=== PATIENT | male | born 1945 | race Hispanic/Latino ===

== ENCOUNTER 2018-10-31 06:52 | Inpatient (IN) | payer OTHER ==
[2018-10-31 07:51] LABS: Absolute Lymphocytes (CBC) 0.8 K/uL (0.7-4.9); Basophils % 0.4 % (0-1.3); Hematocrit 28.7 % (39.6-49.0); Lymphocytes % 14.7 % (15.3-44.8); MPV 10.3 fL (7.6-11.3); RBC Red Blood Cell Count 3.17 M/uL (4.33-5.43)
[2018-10-31 08:27] LABS: ALT/SGPT 16 U/L (12-78); AST/SGOT 8 U/L (15-37); Alkaline Phosphatase 81 U/L (45-117); BUN Blood Urea Nitrogen 57 mg/dL (7-18); Bicarbonate 18 mmol/L (21-32); Bilirubin Direct < 0.1 mg/dL (0-0.2); Bilirubin Total 0.4 mg/dL (0.2-1.0); Glucose Level 100 mg/dL (74-106); Lipase 123 U/L (73-393); Potassium 5.4 mmol/L (3.5-5.1); Protein, Total 6.9 g/dL (6.4-8.2); Sodium Level 142 mmol/L (136-145); Troponin (Emerg Dept Use Only) 0.03 ng/mL (0.0-0.045)
[2018-10-31] MEDS ORDERED: FUROSEMIDE 100 MG/10 ML VIAL IV ONE (08:45)
--- NOTE | 2018-10-31 08:58 | EDPHYS ---
Physician Documentation [facility] Name: Jodi Steve Age: 73 yrs Sex: Male : 1945 Arrival Date: 10/31/2018 Time: 07:00 Bed 20 Private MD: Dominic Adler H ED Physician Mane Canales HPI: 10/31 09:12 This 73 yrs old Male presents to ER via Ambulatory with complaints of gs Nausea/Vomiting cough. 09:12 The patient or guardian reports cough, difficulty breathing. Onset: The gs symptoms/episode began/occurred 3 week(s) ago. Severity of symptoms: At their worst the symptoms were severe, in the emergency department the symptoms have improved, moderately. Modifying factors: the symptoms are aggravated by exertion. Associated signs and symptoms: Pertinent positives: chest pain, vomiting, Pertinent negatives: fever, rhinorrhea. The patient has experienced similar episodes in the past, a few times. The patient has been recently seen by a physician: the patient's primary care provider, with similar presenting complaints. Historical: - Allergies: 07:11 No Known Allergies; em - Home Meds: 09:47 carvedilol 25 mg oral tab 1 tab every 12 hours [Active]; albuterol sulfate 90 em mcg/actuation Inhl HFAA 1 puff every 4-6 hours [Active]; guaifenesin-codeine syrup 5 ml every 6 hours PRN for cough [Active]; montelukast oral oral [Active]; - PMHx: 07:11 Diabetes - NIDDM; em 07:31 Hypertension; em 09:13 Renal Disease; gs - PSHx: 07:11 CABG; em - Immunization history:: Adult Immunizations up to date. - Social history:: Smoking status: Patient/guardian denies using tobacco. - Ebola Screening: : Patient negative for fever greater than or equal to 101.5 degrees Fahrenheit, and additional compatible Ebola Virus Disease symptoms Patient denies exposure to infectious person Patient denies travel to an Ebola-affected area in the 21 days before illness onset No symptoms or risks identified at this time. ROS: 09:13 All other systems are negative. gs Exam: 09:13 Head/Face: Normocephalic, atraumatic. Eyes: Pupils equal round and reactive to light, gs extra-ocular motions intact. Lids and lashes normal. Conjunctiva and sclera are non-icteric and not injected. Cornea within normal limits. Periorbital areas with no swelling, redness, or edema. ENT: Nares patent. No nasal discharge, no septal abnormalities noted. Tympanic membranes are normal and external auditory canals are clear. Oropharynx with no redness, swelling, or masses, exudates, or evidence of obstruction, uvula midline. Mucous membranes moist. Neck: Trachea midline, no thyromegaly or masses palpated, and no cervical lymphadenopathy. Supple, full range of motion without nuchal rigidity, or vertebral point tenderness. No Meningismus. Chest/axilla: Normal chest wall appearance and motion. Nontender with no deformity. No lesions are appreciated. Cardiovascular: Regular rate and rhythm with a normal S1 and S2. No gallops, murmurs, or rubs. Normal PMI, no JVD. No pulse deficits. 09:13 Abdomen/GI: Soft, non-tender, with normal bowel sounds. No distension or tympany. No guarding or rebound. No evidence of tenderness throughout. Back: No spinal tenderness. No costovertebral tenderness. Full range of motion. Skin: Warm, dry with normal turgor. Normal color with no rashes, no lesions, and no evidence of cellulitis. MS/ Extremity: Pulses equal, no cyanosis. Neurovascular intact. Full, normal range of motion. Neuro: Awake and alert, GCS 15, oriented to person, place, time, and situation. Cranial nerves II-XII grossly intact. Motor strength 5/5 in all extremities. Sensory grossly intact. Cerebellar exam normal. Normal gait. 09:13 Constitutional: The patient appears alert, awake. 09:13 Respiratory: the patient does not display signs of respiratory distress, Respirations: normal, Breath sounds: decreased breath sounds, are located in both bases. 09:13 Musculoskeletal/extremity: Perfusion: the patient is normally perfused throughout, Edema, 1+ to the left ankle and right ankle is noted. Vital Signs: 07:11 BP 174 / 87; Pulse 79; Resp 22; Temp 98.3(O); Pulse Ox 99% on R/A; Weight 76.66 kg; em Height 5 ft. 5 in. (165.10 cm); Pain 0/10; 07:52 BP 140 / 78; Pulse 88; Resp 22; Pulse Ox 98% on R/A; Pain 0/10; em 08:42 BP 166 / 82; Pulse 69; Resp 20; Pulse Ox 100% on R/A; Pain 0/10; em 09:52 BP 173 / 85; Pulse 74; Resp 20; Pulse Ox 97% on R/A; em 10:45 BP 139 / 58; Pulse 76; Resp 18; Temp 98.1(O); Pulse Ox 97% on R/A; Pain 0/10; em 07:11 Body Mass Index 28.12 (76.66 kg, 165.10 cm) em MDM: 07:12 Patient medically screened. 09:13 Differential Diagnosis: Upper Respiratory Infection Viral Syndrome Pneumonia Other chf. Data reviewed: vital signs, nurses notes. Counseling: I had a detailed discussion with the patient and/or guardian regarding: the historical points, exam findings, and any diagnostic results supporting the discharge/admit diagnosis, the need for further work-up and treatment in the hospital. Response to treatment: the patient's symptoms have mildly improved after treatment. 10/31 07:20 Order name: Basic Metabolic Panel; Complete Time: 08:42 10/31 07:20 Order name: CBC with Diff; Complete Time: 08:30 10/31 07:20 Order name: Hepatic Function; Complete Time: 08:42 10/31 07:20 Order name: Lipase; Complete Time: 08:42 10/31 07:35 Order name: Troponin (emerg Dept Use Only); Complete Time: 08:30 10/31 07:35 Order name: PROBNP; Complete Time: 08:30 10/31 07:20 Order name: XRAY Chest Pa And Lat (2 Views) 10/31 08:59 Order name: Echo w/ Doppler 10/31 08:59 Order name: US Rp Exam Complete 10/31 09:50 Order name: Urinalysis EDNM 10/31 09:50 Order name: CBC with Automated Diff EDNM 10/31 09:50 Order name: CBC with Automated Diff EDNM 10/31 09:50 Order name: Comprehensive Metabolic Panel EDNM 10/31 09:50 Order name: Comprehensive Metabolic Panel EDNM 10/31 07:20 Order name: IV Saline Lock; Complete Time: 07:33 10/31 07:20 Order name: Labs collected and sent; Complete Time: 07:33 10/31 07:20 Order name: EKG - Nurse/Tech; Complete Time: 07:33 10/31 09:50 Order name: CONS Pharmacy Consult [facility] 10/31 09:50 Order name: CONS Physician Consult [facility] 10/31 09:50 Order name: Heart Healthy EDNM Administered Medications: 08:52 Drug: Lasix 80 mg Route: IVP; Site: right antecubital; 09:52 Follow up: Response: No adverse reaction em Disposition: 10/31/18 08:57 Hospitalization ordered by Jose Antonio Renee for Inpatient Admission. Preliminary diagnosis are Acute systolic (congestive) heart failure, Unspecified kidney failure. - Bed requested for Telemetry/MedSurg (Inpatient). - Status is Inpatient Admission. em - Condition is Stable. - Problem is new. - Symptoms have improved. UTI on Admission? No Signatures: Dispatcher [employer] [facility] Allison José RN RN dw Munoz, Edgar, LVN ELECTRONICS SPECIALIST Shelbi Hanson RN RN ss Starr, Gregory, MD MD Corrections: (The following items were deleted from the chart) 07:31 07:11 Ebola Screening: Patient negative for fever greater than or equal to 101.5 em degrees Fahrenheit, and additional compatible Ebola Virus Disease symptoms Patient denies exposure to infectious person Patient denies travel to an Ebola-affected area in the 21 days before illness onset No symptoms or risks identified at this time em 09:47 07:31 Home Meds: carvedilol 6.25 mg oral tab; em em 10:34 08:57 Hospitalization Ordered by Jose Antonio Renee MD for Inpatient Admission. Preliminary diagnosis is Acute systolic (congestive) heart failure; Unspecified kidney failure. Bed requested for Telemetry/MedSurg (Inpatient). Status is Inpatient Admission. Condition is Stable. Problem is new. Symptoms have improved. UTI on Admission? No. gs 11:09 10:34 10/31/2018 08:57 Hospitalization Ordered by Jose Antonio Renee MD for Inpatient em Admission. Preliminary diagnosis is Acute systolic (congestive) heart failure; Unspecified kidney failure. Bed requested for Telemetry/MedSurg (Inpatient). Status is Inpatient Admission. Condition is Stable. Problem is new. Symptoms have improved. UTI on Admission? No. dw
--- NOTE | 2018-10-31 08:58 | ER ---
Nurse's Notes [facility] Name: Jodi Steve Age: 73 yrs Sex: Male : 1945 Arrival Date: 10/31/2018 Time: 07:00 Bed 20 Private MD: Dominic Adler H Diagnosis: Acute systolic (congestive) heart failure;Unspecified kidney failure Presentation: 10/31 07:07 Acuity: ELYSE 3 ss 07:08 Presenting complaint: Patient states: cough for 3 weeks that is productive and coughing em up white spit, also reports N/V for several weeks, vomited 4 times this morning, denies chest pain, abd pain, or fever. Transition of care: patient was not received from another setting of care. Onset of symptoms was October 07, 2018. Risk Assessment: Do you want to hurt yourself or someone else? Patient reports no desire to harm self or others. Initial Sepsis Screen: Does the patient meet any 2 criteria? RR > 20 per min. No. Patient's initial sepsis screen is negative. Does the patient have a suspected source of infection? No. Patient's initial sepsis screen is negative. Care prior to arrival: None. 07:08 Method Of Arrival: Ambulatory em Historical: - Allergies: 07:11 No Known Allergies; em - Home Meds: 09:47 carvedilol 25 mg oral tab 1 tab every 12 hours [Active]; albuterol sulfate 90 em mcg/actuation Inhl HFAA 1 puff every 4-6 hours [Active]; guaifenesin-codeine syrup 5 ml every 6 hours PRN for cough [Active]; montelukast oral oral [Active]; - PMHx: 07:11 Diabetes - NIDDM; em 07:31 Hypertension; em 09:13 Renal Disease; gs - PSHx: 07:11 CABG; em - Immunization history:: Adult Immunizations up to date. - Social history:: Smoking status: Patient/guardian denies using tobacco. - Ebola Screening: : Patient negative for fever greater than or equal to 101.5 degrees Fahrenheit, and additional compatible Ebola Virus Disease symptoms Patient denies exposure to infectious person Patient denies travel to an Ebola-affected area in the 21 days before illness onset No symptoms or risks identified at this time. Screenin:08 Abuse screen: Denies threats or abuse. Denies injuries from another. Nutritional ss screening: No deficits noted. Tuberculosis screening: Never had TB. 07:12 Fall Risk None identified. em Assessment: 07:13 General: Appears in no apparent distress. comfortable, Behavior is calm, cooperative, em Denies fever. Pain: Denies pain. Neuro: Level of Consciousness is awake, alert, obeys commands, Oriented to person, place, time, situation. Cardiovascular: Denies chest pain, Capillary refill < 3 seconds. Respiratory: Reports shortness of breath on exertion cough that is productive, Airway is patent Respiratory effort is even, unlabored, Respiratory pattern is regular, symmetrical, Breath sounds are diminished in left posterior lower lobe, right posterior middle lobe and right posterior lower lobe Onset: The symptoms/episode began/occurred 3 weeks ago. GI: Abdomen is flat, Bowel sounds present X 4 quads. Abd is soft and non tender X 4 quads. Reports nausea, vomiting, Patient currently denies diarrhea. Derm: Skin is intact, is healthy with good turgor, Skin is pink, warm \T\ dry. Musculoskeletal: Capillary refill < 3 seconds, Range of motion: intact in all extremities. 07:15 General: The previous assessment is accurate. Patient remains on monitors. VS WNL . ss 07:40 Reassessment: Patient appears in no apparent distress at this time. wheeled to CT via em wheelchair. 08:42 Reassessment: Patient appears in no apparent distress at this time. Patient and/or em family updated on plan of care and expected duration. Pain level reassessed. Patient is alert, oriented x 3, equal unlabored respirations, skin warm/dry/pink. Patient denies pain at this time. 09:22 Reassessment: Patient appears in no apparent distress at this time. Patient and/or em family updated on plan of care and expected duration. Pain level reassessed. Patient is alert, oriented x 3, equal unlabored respirations, skin warm/dry/pink. Dr. Johansen at bedside. 09:32 Reassessment: Patient appears in no apparent distress at this time. US at bedside. em 10:45 Reassessment: Patient appears in no apparent distress at this time. Patient and/or em family updated on plan of care and expected duration. Pain level reassessed. Patient is alert, oriented x 3, equal unlabored respirations, skin warm/dry/pink. Patient states feeling better. Vital Signs: 07:11 BP 174 / 87; Pulse 79; Resp 22; Temp 98.3(O); Pulse Ox 99% on R/A; Weight 76.66 kg; em Height 5 ft. 5 in. (165.10 cm); Pain 0/10; 07:52 BP 140 / 78; Pulse 88; Resp 22; Pulse Ox 98% on R/A; Pain 0/10; em 08:42 BP 166 / 82; Pulse 69; Resp 20; Pulse Ox 100% on R/A; Pain 0/10; em 09:52 BP 173 / 85; Pulse 74; Resp 20; Pulse Ox 97% on R/A; em 10:45 BP 139 / 58; Pulse 76; Resp 18; Temp 98.1(O); Pulse Ox 97% on R/A; Pain 0/10; em 07:11 Body Mass Index 28.12 (76.66 kg, 165.10 cm) em ED Course: 07:00 Patient arrived in ED. am2 07:00 Dominic Adler DO is Private Physician. am2 07:01 Elkin Gould LVN is Primary Nurse. em 07:07 Triage completed. ss 07:07 Patient has correct armband on for positive identification. Placed in gown. Bed in low ss position. Call light in reach. Side rails up X 1. awake overnight monitor on. Pulse ox on. NIBP on. 07:11 Mane Canales MD is Attending Physician. gs 07:12 Arm band placed on. em 07:27 Radiology exam delayed due to. ls3 07:48 XRAY Chest Pa And Lat (2 Views) In Process Unspecified. EDMS 08:00 Initial lab(s) drawn, by me, sent to lab. Inserted saline lock: 22 gauge in right em antecubital area, using aseptic technique. Blood collected. 08:57 Jose Antonio Renee MD is Hospitalizing Provider. gs 09:48 Ultrasound completed. Patient tolerated well. sg3 09:57 US Rp Exam Complete In Process Unspecified. EDMS 11:01 No provider procedures requiring assistance completed. Patient admitted, IV remains in em place. Administered Medications: 08:52 Drug: Lasix 80 mg Route: IVP; Site: right antecubital; ss 09:52 Follow up: Response: No adverse reaction em Output: 09:52 Urine: 320ml (Voided); Total: 320ml. em Outcome: 08:57 Decision to Hospitalize by Provider. 11:01 Admitted to Tele accompanied by tech, family with patient, via wheelchair, room 204, em with chart, Report called to JULIO West 11:01 Condition: good 11:01 Instructed on the need for admit, Demonstrated understanding of instructions. 11:09 Patient left the ED. em Signatures: Dispatcher [employer] EDMS Elkin Gould, HOTEL SERVER HOTEL SERVER em Shelbi Hanson RN RN ss Moreno, Amanda am2 Mane Canales MD MD Leatha Mi 3 Tremayne Chaney ls3 Corrections: (The following items were deleted from the chart) 07:31 07:11 Ebola Screening: Patient negative for fever greater than or equal to 101.5 em degrees Fahrenheit, and additional compatible Ebola Virus Disease symptoms Patient denies exposure to infectious person Patient denies travel to an Ebola-affected area in the 21 days before illness onset No symptoms or risks identified at this time em 09:47 07:31 Home Meds: carvedilol 6.25 mg oral tab; em em
--- NOTE | 2018-10-31 09:51 | P.HP ---
Certification for Inpatient With expected LOS: >2 Midnights Practitioner: I am a practitioner with admitting privileges, knowledge of patient current condition, hospital course, and medical plan of care. Services: Services provided to patient in accordance with Admission requirements found in Title 42 Section 412.3 of the Code of Federal Regulations Patient History Date of Service: 10/31/18 Reason for admission: Cough lower extremity edema History of Present Illness: Patient is 73 years of age with a history of renal failure admitted with a 3 week onset of a progressive cough coughing up whitish sputum also complaining of insomnia denies any chest pain. History of CABG no fever or chills denies any postnasal drainage or reflux symptoms Allergies No Known Allergies Allergy (Unverified 10/31/18 09:18) Review of Systems General: Weakness Respiratory: Cough Cardiovascular: Edema Physical Examination - Physical Exam General: Alert, Oriented x3 Neck: Supple Respiratory: Crackles/rales (Bilateral crackles) Cardiovascular: Normal S1 S2, Edema (3+ edema) Gastrointestinal: Normal bowel sounds, Soft and benign Musculoskeletal: No clubbing, No contractures Integumentary: No rashes, No breakdown, No significant lesion - Studies Laboratory Data (last 24 hrs) 10/31/18 07:25: WBC 5.7, Hgb 9.7 L, Hct 28.7 L, Plt Count 150 L 10/31/18 07:25: Sodium 142, Potassium 5.4 H, BUN 57 H, Creatinine 5.37 H*, Glucose 100, Total Bilirubin 0.4, AST 8 L, ALT 16, Alkaline Phosphatase 81, Lipase 123 Assessment and Plan - Problems (Diagnosis) (1) Renal failure Current Visit: Yes Status: Acute Plan: Patient is 73 years of age admitted with cough the burned to sleep at night possible orthopnea volume overload significant lower extremity edema elevated serum creatinine appears that he has chronic renal failure patient is anemic elevated BNP chest x-ray possible volume overload plan is [facility] far at [facility] Qualifiers: Acute renal failure type: unspecified - Advance Directives Does patient have a Living Will: No Does patient have a Durable POA for Healthcare: No
--- NOTE | 2018-10-31 12:19 | RAD REPORT ---
EXAM DESCRIPTION: RAD - Chest Pa And Lat (2 Views) - 10/31/2018 7:49 am CLINICAL HISTORY: COUGH Chest pain. COMPARISON: Abdomen Angio dated 06/11/2018No comparisons FINDINGS: Diffuse bilateral reticular lung opacities are present with small pleural effusions, suspi cious for atypical pneumonia. The heart is mildly enlarged in size with changes of a prior CABG noted .
--- NOTE | 2018-10-31 12:23 | RAD REPORT ---
EXAM DESCRIPTION: US - Renal Ultrasound-Complete - 10/31/2018 9:56 am CLINICAL HISTORY: kidney failure COMPARISON: No comparisons FINDINGS: Both kidneys are mildly echogenic. The right kidney measures 8.9 x 4.6 x 4.0 cm.. No hydronephrosis, focal mass or perinephric fluid. The left kidney measures 9.9 x 5.3 x 4.9 cm.. No hydronephrosis. 7 cm benign-appearing left renal cys t. The urinary bladder is incompletely distended without gross abnormality seen. IMPRESSION: Mildly echogenic kidneys suggests underlying medical renal disease. 7 cm left renal cyst.
[2018-10-31] MEDS: INSULIN -REGULAR HUMAN 50 UNIT/0.5 ML ML SQ SCH ×3 (12:43→20:37)
[2018-10-31 13:10] LABS: Urine Appearance CLEAR; Urine Bilirubin NEGATIVE (NEG); Urine Blood 1+ (NEG); Urine Color YELLOW; Urine Glucose TRACE (NEG); Urine Protein 3+ (NEG); Urine Urobilinogen 0.2 mg/dL (0.2-1.0)
[2018-10-31 13:32] LABS: Urine Microscopic Reflex ORDER UMIC
[2018-10-31 13:54] LABS: Urine Bacteria <20 /HPF (NONE SEEN); Urine Culture Reflex Order NOT NEEDED
[2018-10-31 16:04] LABS: Urine Protein/Creatinine Ratio 10.38 ratio (<0.15)
[2018-10-31] MEDS: FUROSEMIDE 40 MG/4 ML VIAL IV SCH (16:24)
[2018-10-31] MEDS: SODIUM BICARB 325 MG TAB PO SCH ×2 (16:25→20:37)
--- NOTE | 2018-10-31 16:47 | CON ---
Date of Consultation: 10/31/2018 Reason For Consultation: Elevated BUN and creatinine, over volume, fluid management. History Of Present Illness: This is a pleasant 73-year-old gentleman with significant past medical h istory of diabetes since 2004, complicated with neuropathy, no retinopathy, coronary artery disease, status post CABG back in 2014, hypertension, apparently the patient followup with Dr. Adler. Dr. Adler d one some labs on him a couple of months ago and found abnormal kidney function, has been referred to Dr. Dooley, but patient never made it there. Patient gradually started having shortness of breath and increased leg swelling. For that reason, he reported to the emergency room. In the emergency room, primary workup showed elevation in BUN and creatinine. For that reason, we have been consulted. Unf ortunately, in the system, we do not have any previous lab data. On this admission, his creatinine c frankie 5.3 with GFR of 10, marginal hyperkalemia, and marginal acidosis. Patient denied taking any nonsteroidal. No recent hospitalization. No IV contrast. No recent del cid e in his medication. Reviewing home medication, patient at home being Singulair and carvedilol. No other insulting medica tion. Past Medical History: 1.Chronic kidney disease, unknown stages. 2.Hypertension. 3.Coronary artery disease, complicated with congestive heart failure, status post CABG back in 2014. 4.Diabetes, complicated with neuropathy, no retinopathy. Social History: Denies smoking. Denies drinking. Family History: Positive for hypertension. Allergies: NO KNOWN DRUG ALLERGIES. Review of Systems: Head and Neck: No red eye. No ear pain. GI: No nausea. No vomiting. : No polyuria. No dysuria. Has nocturia. LOCAL INTERMODAL TRUCK DRIVER: Not applicable. Respiratory: Has shortness of breath. Cardiovascular: Has orthopnea. Has leg swelling. Endocrine: No polydipsia. Skin: No rash. Neuro: Has neuropathy. Musculoskeletal: No joint pain. Physical Examination: Vital Signs: When I saw the patient, patient lying in bed. Blood pressure 180/87, pulse of 78, afeb rile. Chest: Crackles, bilateral base. Heart: S1, S2. Systolic murmur. Abdomen: Soft, nontender. Extremities: Trace edema. Laboratory Data: WBC 5.7, H and H 9.7/28.6, platelets 150. Sodium 142, potassium 5.4, bicarb 18, ch loride 114, BUN 57, creatinine 5.3, GFR 10, calcium 8.4. BNP . Troponin negative. Urinal ysis; specific gravity of 1.010, + 3 protein. Renal ultrasound showing small kidney bilaterally, no hydronephrosis, 8.9 x 9.9. Bladder distended. Chest x-ray; cardiomegaly with congestion. Assessment And Plan: Acute kidney injury on chronic kidney disease secondary to cardiorenal. The ch ronic component mostly secondary to cardiorenal, diabetes, hypertension, small kidney, proteinuric, p ossible nephrotic. The acute component is mainly cardiorenal, over volume, mild acidosis, and margin al hyperkalemia. 1.I am going to start the patient on Lasix. 2.We are going to do a bladder scan post voiding to evaluate the patient if there is any component o f obstruction. If postvoiding still elevated, we are going to go ahead and place a Hopper. 3.Given the anemia, I am going to go ahead and send for full workup. 4.I am going to send for TSH. 5.I am going to send for PTH to evaluate the chronicity of the disease. 6.Hypertension. We will utilize for more diuresis. 7.Over volume secondary to congestive heart failure, cardiorenal. As above, we will diurese. 8.Hyperkalemia secondary to renal failure, marginal. We will start the patient on diuresis. 9.Acidosis. We will start the patient on oral sodium bicarb. 10.Diabetes as by primary. 11.Congestive heart failure. We will follow up with Cardiology. Thank you Dr. Renee for allowing us to participate in the care of your patient. I discussed with the patient at length that if kidney function did not improve, patient may need renal replacement the rapy. Patient likes to watch in the 24 hours, which is agreed. Patient also directed to bring the l ab that has done with Dr. Adler and we will follow up. YVONNE/IMER Voice ID: [id number] Report ID: [id number]
[2018-10-31] MEDS: CARVEDILOL 6.25 MG TAB PO SCH (20:37)
[2018-10-31] MEDS ORDERED: TEMAZEPAM 15 MG CAP PO ONE (21:00)
[2018-11-01 05:59] VITALS: BMI 26.9
[2018-11-01 06:33] LABS: Absolute Lymphocytes (CBC) 0.7 K/uL (0.7-4.9); Basophils % 0.5 % (0-1.3); Hematocrit 27.1 % (39.6-49.0); Lymphocytes % 15.1 % (15.3-44.8); MPV 10.1 fL (7.6-11.3); RBC Red Blood Cell Count 3.01 M/uL (4.33-5.43)
[2018-11-01 07:03] LABS: Albumin 2.7 g/dL (3.4-5.0); Bilirubin Total 0.3 mg/dL (0.2-1.0); Ferritin 36.7 ng/mL (26-388); Folic Acid, (Folate) 11.3 ng/mL (3.1-17.5); Phosphorus 5.3 mg/dL (2.5-4.9); Potassium 4.8 mmol/L (3.5-5.1); Protein, Total 6.4 g/dL (6.4-8.2)
[2018-11-01 07:10] LABS: Thyroid Stimulating Hormone 11.7 uIU/mL (0.360-3.740)
[2018-11-01] MEDS: INSULIN -REGULAR HUMAN 50 UNIT/0.5 ML ML SQ SCH ×2 (07:30→11:30)
[2018-11-01] MEDS: FUROSEMIDE 40 MG/4 ML VIAL IV SCH (08:10)
[2018-11-01] MEDS: CARVEDILOL 6.25 MG TAB PO SCH (08:11)
[2018-11-01] MEDS: SODIUM BICARB 325 MG TAB PO SCH (08:11)
[2018-11-01 09:14] VITALS: O2SAT 100
--- NOTE | 2018-11-01 10:34 | P.PN ---
Subjective Date of Service: 11/01/18 (Hospitalist) Chief Complaint: Chronic renal failure Subjective: Improving (Patient is improving doing better still complaining of cough and insomnia requesting sleeping pill) Review of Systems 10-point ROS is otherwise unremarkable Physical Examination - Vital Signs Temperature: 97.1 F Blood Pressure: 170/80 Pulse: 71 Respirations: 16 Pulse Ox (%): 100 - Physical Exam General: Alert, Oriented x3 HEENT: Atraumatic Neck: Supple Respiratory: Clear to auscultation bilaterally Cardiovascular: Regular rate/rhythm, Edema Assessment & Plan - Problems (Diagnosis) (1) Renal failure Current Visit: Yes Status: Acute Plan: Patient admitted with renal failure presumed chronic seen by Nephrology he is feeling better still complaining of cough oxygenation satisfactory blood pressure await Nephrology recommendations regarding discharge I have added Sneha still has a slight cough echocardiogram pending no Latty added due to hypertension Qualifiers: Acute renal failure type: unspecified (2) Hypothyroid Current Visit: Yes Status: Acute Plan: Possible his tsh is very elevated free T3 ordered I have added small dose of Synthroid for now Qualifiers: Hypothyroidism type: unspecified Qualified Code(s): E03.9 - Hypothyroidism , unspecified
[2018-11-01] MEDS ORDERED: AMLODIPINE 5 MG TAB PO SCH (10:46)
[2018-11-01] MEDS ORDERED: ESZOPICLONE 1 MG TAB PO PRN (10:49)
[2018-11-01 11:37] VITALS: BP 172/80
[2018-11-01 12:14] VITALS: TEMP 96.9
[2018-11-01] MEDS ORDERED: CALCITROL 0.25 MCG CAP PO SCH (13:00)
[2018-11-01] MEDS ORDERED: AMLODIPINE 10 MG TAB PO SCH (13:00)
[2018-11-01] MEDS ORDERED: CARVEDILOL 12.5 MG TAB PO SCH (13:00)
[2018-11-01] MEDS ORDERED: FERROUS SULFATE 325 MG TAB PO SCH (14:00)
--- NOTE | 2018-11-01 14:47 | PN ---
Date of Progress Note: 11/01/2018 Subjective: Patient was admitted with over volume. Patient being on diuresis, responding very well. Patient had good urine output of 1900. Patient still have leg swelling, but his shortness of breat h has been improved significantly. Physical Examination: Vital Signs: When I saw the patient, blood pressure of 170/80 and pulse of 66. Afebrile. Chest: Clear to auscultation. Heart: S1, S2. Systolic murmur. Abdomen: Soft, nontender. Extremities: +2 edema. Laboratory Data: WBC 4.4, H and H 9/27.1, platelets 146. Sodium 141, potassium 4.8, bicarb 21, BUN 62, creatinine 5.4. GFR of 10. Calcium 8.2, phosphorus 5.3. TSAT of 14. TSH 11.7, PTH 806. P-C r atio of 10. Serology still pending. Assessment And Plan: 1.Chronic kidney disease stage 5, mostly secondary to cardiorenal and hypertensive nephrosclerosis s mall kidney nephrotic range proteinuria over volume, better respiratory status currently. Again, I a m going to go ahead and increase his Lasix to 80 mg in the morning, 40 mg at night. I had long discu ssion with the patient in the presence of the son, regarding the need to initiate renal replacement t herapy. Patient in favor of initiating that as outpatient as the patient may be interested on perito maynor dialysis. I had explained to the patient risks, benefits, alternatives, and the need for earlie r start. Patient verbalized understanding. I am going to go ahead and increase Lasix, increase Core g and amlodipine for better blood pressure control and we will monitor. 2.Hypertension, not controlled. We will utilize blood pressure for more diuresis. I am going to gi ve him Lasix 80 currently. Patient is going to be discharged on 80 in the morning, 40 at night and w e will monitor the patient. 3.Edema secondary to cardiorenal/proteinuria/hypothyroidism. I agree with levothyroxine. Increase Lasix and we will monitor. 4.Acidosis secondary to renal failure, responds very well to current bicarb dose. 5.Secondary hyperparathyroidism. I am going to start the patient on calcitriol 0.5 every other day. 6.Iron deficiency anemia. We will start the patient on iron supplement. 7.Diabetes as by primary. 8.Patient okay for discharge from the Renal standpoint to follow up in the office in 2 weeks with alexi. BERNABE Voice ID: [id number] Report ID: [id number]
--- NOTE | 2018-11-01 16:59 | EKG ---
Test Date: 2018-10-31 Test Time: 07:27:53 [employer]: MEASUREMENT RESULTS: Intervals: Rate: 80 [place]: 166 QRSD: 110 QT: 408 QTc: 470 [place]: P: 35 [place]: 166 QRS: 33 T: 135 INTERPRETIVE STATEMENTS: Normal sinus rhythm Minimal voltage criteria for LVH, may be normal variant ST & T wave abnormality, consider lateral ischemia Prolonged QT Abnormal ECG No previous ECG available for comparison Electronically Signed On 11-01-18 16:56:26 CDT by Barry Mccann
[2018-11-01] MEDS ORDERED: FUROSEMIDE 40 MG/4 ML VIAL IV SCH (17:00)
[2018-11-01 22:16] LABS: Rheumatoid Factor NEG (NEG)
[2018-11-02] MEDS ORDERED: LEVOTHYROXINE SOD 0.025 MG TAB PO SCH (06:30)
[2018-11-04 15:26] LABS: HIV AG/AB 4TH GEN Non-reactive (Non-reactive); Hepatitis C Virus RNA (PCR)log <1.18 log IU/mL
[2018-11-04 19:42] LABS: HBsAG Nonreactive (Nonreactive)
== END 2018-11-01 14:17 | disposition home or self-care (01) | DRG 292 ==
LOC: ER 06:52 → SUPCPDRO 06:52 → ERHOLD 10:05 → 2ND 10:53
PROVIDERS: ADMIT Internal Medicine Sleep Medicine; ATTEND Internal Medicine Sleep Medicine
DX: I13.2 Hypertensive heart and chronic kidney disease with heart failure and with stage 5 chronic kidney disease, or end stage renal disease (principal); N18.5 Chronic kidney disease, stage 5; N17.9 Acute kidney failure, unspecified; E87.2 Acidosis; N25.81 Secondary hyperparathyroidism of renal origin; E11.22 Type 2 diabetes mellitus with diabetic chronic kidney disease; I50.9 Heart failure, unspecified; E03.9 Hypothyroidism, unspecified; R80.9 Proteinuria, unspecified; D50.9 Iron deficiency anemia, unspecified; I25.10 Atherosclerotic heart disease of native coronary artery without angina pectoris; E87.5 Hyperkalemia; Z95.1 Presence of aortocoronary bypass graft
CPT/HCPCS: 36415; 71046; 76770; 80048; 80053; 80069; 80076; 81003; 81015; 82570; 82607; 82652; 82728; 82746; 82962; 83520; 83540; 83690; 83880; 83970; 84156; 84165; 84439; 84443; 84466; 84481; 84484; 85025; 85044; 86021; 86038; 86160; 86225; 86317; 86430; 86704; 86706; 87340; 87389; 87522; 93005; 96374; 99285; J1940

== ENCOUNTER 2018-11-09 08:09 | Day surgery (SDC) | payer OTHER ==
[2018-11-06 10:39] LABS: Potassium 5.7 mmol/L (3.5-5.1)
[2018-11-09 08:54] LABS: Potassium 5.3 mmol/L (3.5-5.1)
[2018-11-09] MEDS ORDERED: CEFAZOLIN/SWI 1gm 1 GM/10 ML SYR ONE (09:01)
[2018-11-09] MEDS ORDERED: NA CHLORIDE 0.9% 500 ML ONE (09:01)
[2018-11-09] MEDS ORDERED: HEPARIN 5000 UNIT/ML 1 ML VIAL ONE (09:26)
[2018-11-09] MEDS ORDERED: NA CHLORIDE 0.9% 100 ML IV ONE (09:26)
[2018-11-09] MEDS ORDERED: NS 0.9% VIAL 10 ML ONE (09:46)
[2018-11-09] MEDS ORDERED: FENTANYL CITR 100 MCG/2 ML ONE (09:47)
[2018-11-09] MEDS ORDERED: PROPOFOL 200 MG/20 ML VIAL IV ONE (09:47)
[2018-11-09] MEDS ORDERED: MIDAZOLAM HCL 2 MG/2 ML INJ ONE ×2 (09:47→10:23)
[2018-11-09] MEDS ORDERED: LIDOCAINE 2% MPF 5 ML VIAL ONE (09:47)
[2018-11-09] MEDS ORDERED: ONDANSETRON 4 MG/2 ML VIAL ONE (09:48)
[2018-11-09] MEDS ORDERED: LIDOCAINE 1% MPF 30 ML VIAL ONE (09:56)
[2018-11-09] MEDS: HEPARIN 5000 UNIT/ML 1 ML VIAL ONE ×3 (10:20→10:27)
--- NOTE | 2018-11-09 10:48 | RAD REPORT ---
EXAM DESCRIPTION: RAD - Fluoroscopy <1 Hour - 11/09/2018 10:38 am CLINICAL HISTORY: Venous catheter insertion. TESSIO PLACEMENT COMPARISON: No comparisons FINDINGS: Fluoroscopic imaging is submitted from placement of a venous catheter. Details of the pro cedure not available. Fluoroscopy time: 0.1 minutes
--- NOTE | 2018-11-09 11:13 | RAD REPORT ---
EXAM DESCRIPTION: RAD - Chest Single View - 11/09/2018 11:03 am CLINICAL HISTORY: S P HEMO CATH PLACEMENT Chest pain. COMPARISON: Chest Pa And Lat (2 Views) dated 10/31/2018 FINDINGS: Portable technique limits examination quality. Right-sided venous catheter its tip in the SVC. No postprocedure pneumothorax.
--- NOTE | 2018-11-09 11:38 | OP ---
Date of Procedure: 11/09/2018 Surgeon: Trey Enrique MD Preoperative Diagnosis: Renal failure. Postoperative Diagnosis: Renal failure. Procedure: Placement of right IJ Tesio catheter. Interpretation of intraoperative fluoroscopy. Estimated Blood Loss: Minimal. Specimen: None. Findings: Normal anatomy. Anesthesia: MAC. Complications: None. Disposition: Patient tolerated the procedure, in stable condition, and taken to recovery in good gen eral condition. Description Of Procedure: Patient was brought to the OR and placed in supine position. General anes thesia was begun. Patient was prepped and draped in usual sterile fashion. Lidocaine 1% was infiltr ated locally. An 18-gauge needle was used to access the right IJ vein. Guidewire was passed. Posit ion was confirmed with fluoroscopy. Counterincision was made in the right anterior chest. Tunneling device was used to tunnel the catheter between the 2 wounds and Seldinger technique was used. Vein dilated and tip of the catheter was placed under fluoroscopy at the SVC and then catheter flushed wit h heparin and packed with heparin with good blood flow. Then 3-0 chromic was used to reapproximate t he subcutaneous tissue and 3-0 nylon was used to secure the Tesio catheter to the chest wall. Steril e dressing was applied. Patient was awakened and taken to recovery in good general condition. Chest x-ray has been ordered. If okay, the patient will be discharged to home. Disposition: Home. Condition: Stable. Discharge Instructions: Resume home medications and diet. Activity: As tolerated. No heavy lifting. Remove outer dressing in 2 days. Shower. Keep wound cl shefali and dry. Follow up in my office after patient has a fistula for catheter removal. Tylenol No. 3 one tablet p.o. q.4 hours p.r.n. pain. Follow up with hemodialysis center. RETA/IMER Voice ID: [id number] Report ID: [id number]
[2018-11-09 11:41] VITALS: BP 127/59; TEMP 96.3; O2SAT 100
[2018-11-09] MEDS ORDERED: HYDROCODONE/APAP 7.5/325 MG TAB ONE (12:04)
== END 2018-11-09 12:40 | disposition home or self-care (01) ==
LOC: OR 08:09
PROVIDERS: ATTEND Surgery
PROC: 02HV33Z Insertion of Infusion Device into Superior Vena Cava, Percutaneous Approach (ICD-10-PCS; principal; 2018-11-09 10:00)
DX: I13.10 Hypertensive heart and chronic kidney disease without heart failure, with stage 1 through stage 4 chronic kidney disease, or unspecified chronic kidney disease (principal); E11.22 Type 2 diabetes mellitus with diabetic chronic kidney disease; N18.9 Chronic kidney disease, unspecified; I25.10 Atherosclerotic heart disease of native coronary artery without angina pectoris; Z95.1 Presence of aortocoronary bypass graft
CPT/HCPCS: 80048 ×2; 36415 ×2; 82962; 71045; 36565; J2704; J1644 ×3; J2250; J3010; J0690; J2405; C1752; 76000

== ENCOUNTER 2020-04-20 13:41 | Inpatient (IN) | payer OTHER ==
--- OUTSIDE RECORDS SUMMARY | 2020-04-20 12:47 | XMS REPORT | Continuity of Care Document ---
:1945 Author Organization [employer] Care Team Providers Name Role Phone [employer] Unavailable Un available Problems Problem Status Onset Classification Date Comments Sourc e Date Reported LEFT RIGHT HEART Active 03/15/20 M H CATH 20 [place] I35.0 IODINE Active 03/13/20 ALLERGY UNKNOWN 20 [place] Abnormal 03/30/19 04/01/2019 electrocardiogram 20 [place] [ECG] [EKG] ABNORMAL EKG Active 03/30/19 20 [facility] AVF Active 03/19/19 20 [facility] AVF CREATION, LEFT Active 01/30/20 M H UPPER EXTREMITY [facility] Anxiety (finding) Active Problem 03/20/2020 H [facility] Diabetes mellitus Active Problem 03/20/2020 M H (disorder) [facility] End stage renal Active Problem 03/20/2020 disease (disorder) [facility] Hypertensive Active Problem 03/20/2020 disorder, systemic [facility] [place] arterial (disorder) Medications Medication Details Route Status Patient Ordering Order Source Instructions Provider Date Aspirin 81 MG Notes: Do not No Longer Enteric Coated crush or Active 2020 [place] [facility] Tablet chew. (Same As: Ecotrin) Plavix Notes: (Same No Longer As: Plavix) Active 2020 [facility] Aspirin 81 MG 81 mg = 1 Active Enteric Coated tab, PO, 2019 [place] Tablet Daily, # 30 tab, 6 Refill(s) clopidogrel 75 MG 75 mg = 1 Active Oral Tablet tab, PO, 2019 [Plavix] Daily, # 30 tab, 6 Refill(s) Aspirin 81 MG 81 mg = 1 Inactive Enteric Coated tab, PO, 2019 [place] Tablet Daily, # 30 tab, 6 Refill(s) clopidogrel 75 MG 75 mg = 1 Inactive Oral Tablet tab, PO, 2019 [Plavix] Daily, # 30 tab, 6 Refill(s) Nitroglycerin Notes: (Same Inactive as:Nitroquick 2019 [facility] , Nitrostat) "Do Not Crush" Sublingual tablet cyclobenzaprine 5 5 mg = 1 tab, Inactive mg oral tablet PO, BID, 0 2019 [facility] ast Refill(s) gabapentin 300 MG 300 mg = 1 Active Oral Capsule cap, PO, 2019 [facility] Daily, 0 Refill(s) Morphine 4 mg, Route: No Longer IVP, Q6H, Active 2019 [facility] Dosing Weight 70.625, kg, PRN Pain Score 4-6, Start date: 04/06/19 17:51:00 CONTENT CURATOR, Duration: 30 day, Stop date: 05/06/19 17:50:00 CONTENT CURATOR protamine (ANES) Route: IV, Inactive Drug form: [address] [place] [address] INJ, ONCE, Stop date: 04/06/19 17:42:00 CONTENT CURATOR Labetalol 10 mg, Route: Inactive IVP, Q5Min, 2019 [facility] Dosing Weight 70.625, kg, PRN Elevated BP, Start date: 04/06/19 17:37:00 CONTENT CURATOR, Duration: 5 doses or times, Stop date: Limited # of times Ketorolac 30 mg, Route: Inactive IVP, ONCE, 2019 [facility] Dosing Weight 70.625, kg, Start date: 04/06/19 17:37:00 CONTENT CURATOR, Stop date: 04/06/19 17:37:00 CONTENT CURATOR Acetaminophen 1,000 mg, Inactive Route: PO, 2019 [facility] Drug form: TAB, ONCE, Dosing Weight 70.625, kg, PRN Pain Score 1-3, Start date: 04/06/19 17:37:00 CONTENT CURATOR Fentanyl 25 microgram, Inactive Route: IVP, 2019 [facility] Q5Min, Dosing Weight 70.625, kg, PRN Pain Score 4-6, Priority: Routine, Start date: 04/06/19 17:37:00 CONTENT CURATOR, Duration: 4 doses or times, Stop date: Limited # of times Morphine 4 mg, Route: Inactive IVP, Q5Min, 2019 [facility] Dosing Weight 70.625, kg, PRN Pain Score 7-10, Start date: 04/06/19 17:37:00 CONTENT CURATOR, Duration: 3 doses or times, Stop date: Limited # of times Naloxone 0.4 mg, Inactive Route: IVP, 2019 [facility] Q2MIN, Dosing Weight 70.625, kg, PRN Narcotic Reversal, Start date: 04/06/19 17:37:00 CONTENT CURATOR, Duration: 8 doses or times, Stop date: Limited # of times Meperidine 12.5 mg, Inactive Route: IVP, 2019 [facility] Q30Min, Dosing Weight 70.625, kg, PRN Other -See Comment, For shivering, Start date: 04/06/19 17:37:00 CONTENT CURATOR, Duration: 2 doses or times, Stop date: Limited # of times Ondansetron 4 mg, Route: Inactive IVP, ONCE, 2019 [facility] Dosing Weight 70.625, kg, PRN Nausea & Vomiting, Start date: 04/06/19 17:37:00 CONTENT CURATOR heparin (ANES) Route: IV, Inactive Drug form: 2019 [facility] INJ, ONCE, Stop date: 04/06/19 17:35:00 CONTENT CURATOR ondansetron Route: IV, Inactive (ANES) Drug form: 2019 [facility] INJ, ONCE, Stop date: 04/06/19 17:30:00 CONTENT CURATOR fentaNYL (ANES) Route: IV, Inactive Drug form: 2019 [facility] INJ, ONCE, Stop date: 04/06/19 17:29:00 CONTENT CURATOR midazolam (ANES) Route: IV, Inactive Drug form: 2019 [facility] SOLN, ONCE, Stop date: 04/06/19 17:25:00 CONTENT CURATOR ceFAZolin (ANES) Route: IV, Inactive Drug form: 2019 [facility] INJ, ONCE, Stop date: 04/06/19 17:25:00 CONTENT CURATOR Sodium Chloride Route: IV, Inactive 0.9% IV (ANES) Total Volume: [address] [facility] 1000 mL 1,000, Start date: 04/06/19 16:29:00 CONTENT CURATOR, Stop date: 04/06/19 17:29:00 CONTENT CURATOR Aspirin 0 Refill(s) Active 2019 [facility] lisinopril 2.5 mg 2.5 mg = 1 Active oral tablet tab, PO, 2019 Daily, 0 Refill(s) Furosemide 40 MG 40 mg = 1 Active Oral Tablet tab, PO, 2019 Daily, 0 Refill(s) atorvastatin PO, Daily, 0 Inactive Refill(s) 2019 atorvastatin 20 20 mg = 1 Active mg oral tablet tab, PO, [facility] t Daily, 0 Refill(s) carvedilol 6.25 6.25 mg = 1 Active mg oral tablet tab, PO, BID, 2019 [facility] 0 Refill(s) normal saline 500 mL, Rate: No Longer 0.9% IV 500 mL 40 ml/hr, Active [address] [facility] [address] Infuse over: 12.5 hr, Route: IV, Dosing Weight 70.625 kg, Total Volume: 500, Start date: 04/06/19 10:30:00 CONTENT CURATOR, Duration: 30 day, Stop date: 05/06/19 10:29:00 CONTENT CURATOR, 1.81, m2 Aspirin 324 mg, Inactive Route: CHEW, 2019 [facility] Drug form: CHEWTAB, ONCE, Dosing Weight 70.625, kg, Priority: STAT, Start date: 03/30/19 12:59:00 CONTENT CURATOR, Stop date: 03/30/19 12:59:00 CONTENT CURATOR Vancomycin 1 gm, Route: No Longer IVPB, Drug Active 2019 [facility] form: INJ, PRE OP, Dosing Weight 70.625, kg, Start date: 03/30/19 12:00:00 CONTENT CURATOR, Duration: 1 day, Stop date: 03/31/19 11:59:00 CONTENT CURATOR, ABX Indication: Surgical Prophylaxis Ancef 2 gm, Route: No Longer IVPB, PRE OP, Active 2019 [facility] Dosing Weight 70.625, kg, Start date: 03/30/19 12:00:00 CONTENT CURATOR, Duration: 1 day, Stop date: 03/31/19 11:59:00 CONTENT CURATOR, ABX Indication: Surgical Prophylaxis Allergies, Adverse Reactions, Alerts Substance Category Reaction Severity Reaction Status Date Comments S ource type Reported No Known Assertion Drug Medication allergy [facility] Allergies Immunizations No Data Provided for This Section Results Order Name Results Value Reference Date Interpretation Comments [facility] CHEM PANEL Glucose Lvl 105 70 - 99 03/16 [facility] CHEM PANEL BUN 31 7 - 22 03/16 [facility] CHEM PANEL Creatinine 4.51 0.50 - 03/16 MH Lvl 1.40 [facility] CHEM PANEL Sodium Lvl 137 135 - 145 03/16 [facility] CHEM PANEL Potassium 4.1 3.5 - 5.1 03/16 MH Lvl /2019 [facility] CHEM PANEL Chloride Lvl 102 95 - 109 03/16 [facility] CHEM PANEL CO2 28 24 - 32 03/16 [facility] CHEM PANEL Calcium Lvl 9.3 8.5 - 10.5 03/16 [facility] CHEM PANEL AGAP 11.1 10.0 - 03/16 MH 20.0 [facility] CHEM PANEL eGFR 12 03/16 Result Comment: The [facility] eGFR is calculated using the CKD-EPI formula. In most young, healthy individuals the eGFR will be >90 mL/min/1.73m2 . The eGFR declines with age. An eGFR of 60-89 may be normal in some populations, particularly the elderly, for whom the CKD-EPI formula has not been extensively validated. Use of the eGFR is not recommended in the following populations:< br/>
Michelle viduals with unstable creatinine concentration s, including patients and those with serious co-morbid conditions.<b r/>
Patie nts with extremes in muscle mass or diet.

The data above are obtained from the National Kidney Disease Education Program (NKDEP) which additionally recommends that when the eGFR is used in patients with extremes of body mass index for purposes of drug dosing, the eGFR should be multiplied by the estimated BMI. HEMATOLOGY WBC 7.7 3.7 - 10.4 03/16 [facility] HEMATOLOGY RBC 3.17 4.70 - 03/16 MH 6.10 [facility] HEMATOLOGY Hgb 10.5 14.0 - 03/16 MH 18.0 [facility] HEMATOLOGY Hct 31.1 42.0 - 03/16 MH 54.0 [facility] HEMATOLOGY MCV 98.2 80.0 - 03/16 MH 94.0 [facility] HEMATOLOGY MCH 33.2 27.0 - 03/16 MH 31.0 [facility] HEMATOLOGY MCHC 33.8 32.0 - 03/16 MH 36.0 [facility] HEMATOLOGY RDW 14.1 11.5 - 03/16 MH 14.5 [facility] HEMATOLOGY Platelet 157 133 - 450 03/16 [facility] HEMATOLOGY MPV 9.6 7.4 - 10.4 03/16 MH /2019 [facility] HEMATOLOGY Segs 78.6 45.0 - 03/16 MH 75.0 /2019 [facility] HEMATOLOGY Lymphocytes 13.0 20.0 - 03/16 MH 40.0 /2019 [facility] HEMATOLOGY Monocytes 8.0 2.0 - 12.0 03/16 MH [facility] HEMATOLOGY Eosinophils 0.1 0.0 - 4.0 03/16 [facility] HEMATOLOGY Basophils 0.3 0.0 - 1.0 03/16 [facility] HEMATOLOGY Neutrophils 6.0 1.5 - 8.1 03/16 MH # /2019 [facility] HEMATOLOGY Lymphocytes 1.0 1.0 - 5.5 03/16 MH # /2019 [facility] HEMATOLOGY Monocytes # 0.6 0.0 - 0.8 03/16 [facility] IMMUNOLOGY Coronavirus Not Detected Not 03/16 (COVID-19) (03/16/20 9:19 AM) Detected /2019 [place] [facility] BLOOD BANK ABO/Rh O POS 04/06 RESULTS /2019 [facility] BLOOD BANK Antibody Negative 04/06 RESULTS Scrn (04/06/19 9:47 AM) /2019 [facility] ast CHEM PANEL Glucose Lvl 82 70 - 99 04/06 [facility] CHEM PANEL BUN 35 7 - 22 04/06 [facility] CHEM PANEL Creatinine 5.65 0.50 - 04/06 Lvl 1.40 [facility] CHEM PANEL Sodium Lvl 138 135 - 145 04/06 [facility] CHEM PANEL Potassium 4.5 3.5 - 5.1 04/06 Lvl /2019 [facility] CHEM PANEL Chloride Lvl 105 95 - 109 04/06 [facility] CHEM PANEL CO2 27 24 - 32 04/06 [facility] CHEM PANEL Calcium Lvl 9.3 8.5 - 10.5 04/06 [facility] CHEM PANEL AGAP 10.5 10.0 - 04/06 20.0 [facility] CHEM PANEL eGFR 9 04/06 Result Comment: The [facility] eGFR is calculated using the CKD-EPI formula. In most young, healthy individuals the eGFR will be >90 mL/min/1.73m2 . The eGFR declines with age. An eGFR of 60-89 may be normal in some populations, particularly the elderly, for whom the CKD-EPI formula has not been extensively validated. Use of the eGFR is not recommended in the following populations:< br/>
Michelle viduals with unstable creatinine concentration s, including patients and those with serious co-morbid conditions.<b r/>
Patie nts with extremes in muscle mass or diet.

The data above are obtained from the National Kidney Disease Education Program (NKDEP) which additionally recommends that when the eGFR is used in patients with extremes of body mass index for purposes of drug dosing, the eGFR should be multiplied by the estimated BMI. CARDIAC Total CK 85 12 - 191 03/30 [facility] /2019 [facility] CARDIAC Troponin-I <0.02 0.00 - 03/30 [facility] 0.40 [facility] CHEM PANEL Glucose Lvl 95 70 - 99 03/30 [facility] CHEM PANEL BUN 39 7 - 22 03/30 [facility] CHEM PANEL Creatinine 5.55 0.50 - 03/30 MH Lvl 1.40 [facility] CHEM PANEL Sodium Lvl 134 135 - 145 03/30 MH [facility] CHEM PANEL Potassium 4.3 3.5 - 5.1 03/30 Lvl [facility] CHEM PANEL Chloride Lvl 101 95 - 109 03/30 [facility] CHEM PANEL CO2 27 24 - 32 03/30 [facility] CHEM PANEL Calcium Lvl 9.4 8.5 - 10.5 03/30 [facility] CHEM PANEL Total 8.1 6.4 - 8.4 03/30 Protein [facility] CHEM PANEL Albumin Lvl 3.7 3.5 - 5.0 03/30 [facility] CHEM PANEL ALT 29 0 - 65 03/30 [facility] CHEM PANEL AST 12 0 - 37 03/30 [facility] CHEM PANEL Alk Phos 117 39 - 136 03/30 [facility] CHEM PANEL Bili Total 0.4 0.2 - 1.3 03/30 [facility] CHEM PANEL AGAP 10.3 10.0 - 03/30 MH 20.0 [facility] CHEM PANEL B/C Ratio 7 6 - 25 03/30 [facility] CHEM PANEL Globulin 4.4 2.7 - 4.2 03/30 [facility] CHEM PANEL A/G Ratio 0.8 0.7 - 1.6 03/30 [facility] CHEM PANEL eGFR 9 03/30 Result Comment: The [facility] eGFR is calculated using the CKD-EPI formula. In most young, healthy individuals the eGFR will be >90 mL/min/1.73m2 . The eGFR declines with age. An eGFR of 60-89 may be normal in some populations, particularly the elderly, for whom the CKD-EPI formula has not been extensively validated. Use of the eGFR is not recommended in the following populations:< br/>
Michelle viduals with unstable creatinine concentration s, including patients and those with serious co-morbid conditions.<b r/>
Patie nts with extremes in muscle mass or diet.

The data above are obtained from the National Kidney Disease Education Program (NKDEP) which additionally recommends that when the eGFR is used in patients with extremes of body mass index for purposes of drug dosing, the eGFR should be multiplied by the estimated BMI. HEMATOLOGY WBC 6.6 3.7 - 10.4 03/30 [facility] HEMATOLOGY RBC 3.81 4.70 - 03/30 MH 6.10 [facility] HEMATOLOGY Hgb 12.1 14.0 - 03/30 MH 18.0 [facility] HEMATOLOGY Hct 35.7 42.0 - 03/30 MH 54.0 [facility] HEMATOLOGY MCV 93.6 80.0 - 03/30 MH 94.0 [facility] HEMATOLOGY MCH 31.7 27.0 - 03/30 MH 31.0 [facility] HEMATOLOGY MCHC 33.8 32.0 - 03/30 MH 36.0 [facility] HEMATOLOGY RDW 14.4 11.5 - 03/30 MH 14.5 [facility] HEMATOLOGY Platelet 148 133 - 450 03/30 [facility] HEMATOLOGY MPV 9.5 7.4 - 10.4 03/30 [facility] HEMATOLOGY PT 14.0 12.0 - 03/30 MH 14.7 [facility] HEMATOLOGY INR 1.08 0.85 - 03/30 MH 1.17 [facility] HEMATOLOGY PTT 35.6 22.9 - 03/30 MH 35.8 [facility] HEMATOLOGY Segs 56.7 45.0 - 03/30 MH 75.0 [facility] HEMATOLOGY Lymphocytes 24.2 20.0 - 03/30 40.0 [facility] HEMATOLOGY Monocytes 12.0 2.0 - 12.0 03/30 [facility] HEMATOLOGY Eosinophils 6.2 0.0 - 4.0 03/30 [facility] HEMATOLOGY Basophils 0.9 0.0 - 1.0 03/30 [facility] HEMATOLOGY Neutrophils 3.7 1.5 - 8.1 03/30 [facility] HEMATOLOGY Lymphocytes 1.6 1.0 - 5.5 03/30 [facility] HEMATOLOGY Monocytes # 0.8 0.0 - 0.8 03/30 [facility] HEMATOLOGY Eosinophils 0.4 0.0 - 0.5 03/30 [facility] HEMATOLOGY Basophils # 0.1 0.0 - 0.2 03/30 [facility] Pathology Reports No Data Provided for This Section Diagnostic Reports Report Value Date Source Chest 1view DX PROCEDURE INFORMATION: 03/30/2019 [facility] Exam: XR Chest, 1 View Exam date and time: 03/30/2019 12:52 PM Age: 74 years old Clinical indication: /htn TECHNIQUE: Imaging protocol: XR of the chest Views: 1 view. COMPARISON: No relevant prior studies available. FINDINGS: Tubes, catheters and devices: Right inte rnal jugular dialysis catheter is seen with tips in the superior vena cava. Lungs: There are normal lung volumes without int erstitial or airspace opacities. Pleural space: There are no pleural effusions or pneumothorax. Heart/Mediastinum: There is mild cardiomegaly. T he patient is status post median sternotomy and coronary artery bypass gra ft surgery with sternal wires.The pulmonary vasculature is michelle l. There is a mildly tortuous thoracic aorta. The trachea is in the midline. Bones/joints: No acute abnormalities. IMPRESSION: 1. No confluent infiltrates in the lungs. 2. Mild cardiomegaly. Romeo Harris MD On 03/30/2019 13:22:36; [id number] Consultation Notes No Data Provided for This Section Discharge Summaries No Data Provided for This Section History and Physicals No Data Provided for This Section Vital Signs Vital Sign Value Date Comments Source Respitory Rate 27 03/16/2020 [facility] Systolic (mm Hg) 143 03/16/2020 [facility] t Diastolic (mm Hg) 64 03/16/[address] [facility] [address] Respitory Rate 16 03/16/2020 [facility] Systolic (mm Hg) 123 03/16/2020 [place] Diastolic (mm Hg) 58 03/16/[address] Respitory Rate 21 03/16/2020 [facility] Systolic (mm Hg) 157 03/16/2020 [place] Diastolic (mm Hg) 68 03/16/[address] Height 162.56 cm 03/16/2020 [facility] Weight 71.818 03/16/2020 [facility] BMI Calculated 27.18 03/16/2020 [facility] Respitory Rate 15 04/07/2019 [facility] Systolic (mm Hg) 134 04/07/2019 [place] Diastolic (mm Hg) 65 04/07/[address] Respitory Rate 16 04/07/2019 [facility] Systolic (mm Hg) 154 04/07/2019 [place] Diastolic (mm Hg) 67 04/07/[address] Respitory Rate 12 04/07/2019 [facility] Systolic (mm Hg) 141 04/07/2019 [place] [facility] Diastolic (mm Hg) 68 04/07/[address] Heart Rate 58 04/06/2019 [facility] Systolic (mm Hg) 147 03/30/2019 [place] [facility] Diastolic (mm Hg) 55 03/30/[address] Heart Rate 65 03/30/2019 [facility] Systolic (mm Hg) 141 03/30/2019 [place] [facility] Diastolic (mm Hg) 59 03/30/[address] Heart Rate 67 03/30/2019 [facility] Respitory Rate 16 03/30/2019 [facility] Height 162.56 cm 03/30/2019 [facility] Weight 70.625 03/30/2019 [facility] BMI Calculated 26.73 03/30/2019 [facility] Encounters Location Location Encounter Encounter Reason Attending ADM DC Stat us Source Details Type Number For Provider Date Date [facility] [id number] Ethan Iheme 03/30 03/30 [place] /2019 [facility] Day Surgery [id number] Lukas 04/06 04[facility] Bedded [id number] Nadish 03/16 03/16 [facility] [place] /2019 [facility] Procedures Procedure Code Date Perfomer Comments Source CABG x 1 - Coronary [id number] [place] artery bypass graft x 4 1 Catheterization of [id number] [facility] both left and right heart Assessment and Plan No Data Provided for This Section Plan of Care No Data Provided for This Section Social History Social History Date Source Social History TypeResponse 03/30/2019 [facility] Alcohol Past Smoking Status Former smoker; Type: Cigarettes; Exposur e to Tobacco Smoke None; Cigarette Smoking Last 365 Days No; Reg Smoking Cessation Counseling No entered on: 03/16/20 Family History No Data Provided for This Section Advance Directives No Data Provided for This Section Functional Status No Data Provided for This Section
--- OUTSIDE RECORDS SUMMARY | 2020-04-20 12:48 | XMS REPORT | Summary of Care ---
:1945 Author Organization [facility] ospital Address [address] [place], [place] [address]- Encounter HQ Sharan(MACEY) [id number] Date(s): 03/16/20 - 03/16/20 [facility] [address] [place] [address]- Discharge Disposition: Home or Self Care Attending Physician: Sara Paul MD Referring Physician: Sara Paul MD Vital Signs Most recent to oldest 1 2 3 [Reference Range]: Height 162.56 cm (03/16/20 9:45 AM) Blood Pressure [90-140/60-90 143/64 mmHg 123/58 mmHg 157 /68 mmHg mmHg] *HI* (03/16/20 4:45 PM) *HI* (03/16/20 5:00 PM) (03/16/20 4:1 5 PM) Respiratory Rate [14-20 27 BRMIN 16 BRMIN 21 BRMIN BRMIN] *HI* (03/16/20 4:45 PM) *HI* (03/16/20 5:00 PM) (03/16/20 4:1 5 PM) Weight 71.818 kg (03/16/20 9:45 AM) Body Mass Index 27.18 m2 (03/16/20 9:45 AM) Problem List Condition Effective Dates Status Health Status Informant Anxiety(Confirmed) Active Diabetes(Confirmed) Active ESRD (end stage renal Active disease)(Confirmed) Hypertension(Confirmed) Active Allergies, Adverse Reactions, Alerts No Known Medication Allergies Medications aspirin 81 mg tablet, enteric coated 81 mg, 1 tab, Route: PO, Drug form: ECTAB, Daily, Dosing Weight 71.818, kg, Start date: 03/17/20 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, Duration: 30 day, Stop date: 04/15/20 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, 0 Notes: Do not crush or chew.(Same As: Ecotrin) Start Date: 03/17/20 Stop Date: 03/16/20 Status: Canceledaspirin 81 mg tablet, enteric coated 81 mg = 1 tab, PO, Daily, # 30 tab, 6 Refill(s) Start Date: 03/16/20 Stop Date: 03/16/20 Status: Discontinuedaspirin 81 mg tablet, enteric coated 81 mg = 1 tab, PO, Daily, # 30 tab, 6 Refill(s) Start Date: 03/16/20 Status: Orderedcyclobenzaprine 5 mg oral tablet 5 mg = 1 tab, PO, BID, 0 Refill(s) Start Date: 03/16/20 Stop Date: 03/16/20 Status: Discontinuedgabapentin 300 mg oral capsule 300 mg = 1 cap, PO, Daily, 0 Refill(s) Start Date: 03/16/20 Status: Orderednitroglycerin SL Tab 0.4 mg, 1 tab, Route: SL, Drug form: TAB, Q5Min, Dosing Weight 71.818, kg, PRN Chest Pain, Start date: 03/16/20 13:23:00 ROCK CRUSHING MACHINE OPERATOR, Duration: 3 doses or times, Stop date: Limited # of times, 0 Notes: (Same as:Nitroquick, Nitrostat)"Do Not Crush" Sublingual tablet Start Date: 03/16/20 Stop Date: 03/16/20 Status: DiscontinuedPlavix 75 mg, 1 tab, Route: PO, Drug form: TAB, Daily, Dosing Weight 71.818, kg, Start date: 03/17/20 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, Duration: 30 day, Stop date: 04/15/20 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, 0 Notes: (Same As: Plavix) Start Date: 03/17/20 Stop Date: 03/16/20 Status: CanceledPlavix 75 mg oral tablet 75 mg = 1 tab, PO, Daily, # 30 tab, 6 Refill(s) Start Date: 03/16/20 Stop Date: 03/16/20 Status: DiscontinuedPlavix 75 mg oral tablet 75 mg = 1 tab, PO, Daily, # 30 tab, 6 Refill(s) Start Date: 03/16/20 Status: Ordered Results Most recent to oldest [Reference Range]: 1 Neutrophils # [1.5-8.1 K/CMM] 6.0 K/CMM (03/16/20 9:57 AM) Lymphocytes # [1.0-5.5 K/CMM] 1.0 K/CMM (03/16/20 9:57 AM) Monocytes # [0.0-0.8 K/CMM] 0.6 K/CMM (03/16/20 9:57 AM) eGFR 12 mL/min/1.73m2 1 *NA* (03/16/20 9:57 AM) AGAP [10.0-20.0 mEq/L] 11.1 mEq/L (03/16/20 9:57 AM) Basophils [0.0-1.0 %] 0.3 % (03/16/20 9:57 AM) BUN [7-22 mg/dL] 31 mg/dL *HI* (03/16/20 9:57 AM) Calcium Lvl [8.5-10.5 mg/dL] 9.3 mg/dL (03/16/20 9:57 AM) Chloride Lvl [95-109 mEq/L] 102 mEq/L (03/16/20 9:57 AM) CO2 [24-32 mEq/L] 28 mEq/L (03/16/20 9:57 AM) Creatinine Lvl [0.50-1.40 mg/dL] 4.51 mg/dL *HI* (03/16/20 9:57 AM) Eosinophils [0.0-4.0 %] 0.1 % (03/16/20 9:57 AM) Glucose Lvl [70-99 mg/dL] 105 mg/dL *HI* (03/16/20 9:57 AM) Hct [42.0-54.0 %] 31.1 % *LOW* (03/16/20 9:57 AM) Hgb [14.0-18.0 g/dL] 10.5 g/dL *LOW* (03/16/20 9:57 AM) Potassium Lvl [3.5-5.1 mEq/L] 4.1 mEq/L (03/16/20 9:57 AM) Lymphocytes [20.0-40.0 %] 13.0 % *LOW* (03/16/20 9:57 AM) MCH [27.0-31.0 pg] 33.2 pg *HI* (03/16/20 9:57 AM) MCHC [32.0-36.0 g/dL] 33.8 g/dL (03/16/20 9:57 AM) MCV [80.0-94.0 fL] 98.2 fL *HI* (03/16/20 9:57 AM) Monocytes [2.0-12.0 %] 8.0 % (03/16/20 9:57 AM) MPV [7.4-10.4 fL] 9.6 fL (03/16/20 9:57 AM) Sodium Lvl [135-145 mEq/L] 137 mEq/L (03/16/20 9:57 AM) Platelet [133-450 K/CMM] 157 K/CMM (03/16/20 9:57 AM) Segs [45.0-75.0 %] 78.6 % *HI* (03/16/20 9:57 AM) Coronavirus (COVID-19) YAQUELIN [Not Detected] Not Detected (03/16/20 9:19 AM) RBC [4.70-6.10 M/CMM] 3.17 M/CMM *LOW* (03/16/20 9:57 AM) RDW [11.5-14.5 %] 14.1 % (03/16/20 9:57 AM) WBC [3.7-10.4 K/CMM] 7.7 K/CMM (03/16/20 9:57 AM) 1Result Comment: The eGFR is calculated using the CKD-EPI formula. In most young, healthy individualsthe eGFR will be >90 mL/min/1.73m2. The eGFR declines with age. An eGFR of 60-89 may be normal insome populations, particularly the elderly, for whom the CKD-EPI formula has not been extensively validated. Use of the eGFR is not recommended in the following populations: Individuals with unstable creatinine concentrations, including patients and those with serious co-morbid conditions. Patients with extremes in muscle mass or diet. The data above are obtained from the National Kidney Disease Education Program (NKDEP) which additionally recommends that when the eGFR is used in patients with extremes of body mass index for purposesof drug dosing, the eGFR should be multiplied by the estimated BMI. 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
--- OUTSIDE RECORDS SUMMARY | 2020-04-20 12:48 | XMS REPORT | Summary of Care ---
:1945 Author Organization [facility] o[facility] Address [address] [place], [place] [address]- Encounter HQ Sharan(MACEY) [id number] Date(s): 03/16/20 - 03/16/20 [facility] [address] [place] [address]- Discharge Disposition: Home or Self Care Attending [...] Weight 71.818, kg, Start date: 03/17/20 9:00:00 REAL ESTATE REP, Duration: 30 day, Stop date: 04/15/20 9:00:00 REAL ESTATE REP, 0 Notes: Do not crush or chew.(Same [...] PRN Chest Pain, Start date: 03/16/20 13:23:00 REAL ESTATE REP, Duration: 3 doses or times, Stop date: Limited # of times, 0 Notes: (Same as:Nitroquick, Nitrostat)"Do Not Crush" Sublingual tablet Start Date: 03/16/20 Stop Date: 03/16/20 Status: DiscontinuedPlavix 75 mg, 1 tab, Route: PO, Drug form: TAB, Daily, Dosing Weight 71.818, kg, Start date: 03/17/20 9:00:00 REAL ESTATE REP, Duration: 30 day, Stop date: 04/15/20 9:00:00 REAL ESTATE REP, 0 Notes: (Same As: Plavix) Start Date: [...]
--- OUTSIDE RECORDS SUMMARY | 2020-04-20 12:49 | XMS REPORT | Summary of Care ---
:1945 Author Organization [facility] Address [address] [place] [address] Care Team Providers Name Role Phone Pcp, Patient Does Not Have A Primary Care Provider +[id number] 0-0000 Encounter Details Date Type Department Care Team Description 03/14/2020 Hospital Encounter [facility] [place] [facility] Ortho Radiolo gy Shibi, FOOTBALL COACH [address] [facility] [address] [place] [id number] [place], [place] [phone] [facility] [phone] Allergies No Known Allergiesdocumented as of this encounter (statuses as of 03/15/2020) Medications Medication Sig Dispensed Refills Start Date End Date Status cyclobenzaprine 5 mg Take 1 tablet 60 tablet 0 03/14/202003/18 Active tabletIndications: by mouth 2 Spondylolisthesis at (two) times L5-S1 level daily for 30 days. gabapentin 300 mg Take 1 capsule 30 capsule 2 03/14/202006/12 Active capsuleIndications: by mouth daily Spondylolisthesis at for 90 days. L5-S1 level, Radiculopathy of leg carvediloL 6.25 mg Take 6.25 mg 0 Active tablet by mouth daily. atorvastatin 20 mg Take 20 mg by 0 Active tablet mouth daily. furosemide 40 mg tablet Take 40 mg by 0 Active mouth daily. lisinopriL 2.5 mg tablet Take 2.5 mg by 0 Active mouth daily. aspirin 81 mg chewable Take 81 mg by 0 Active tablet mouth daily. 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 documented as of this encounter Last Filed Vital Signs Not on filedocumented in this encounter Plan of Treatment Date Type Specialty Care Team Description 04/11/2020 Office Visit Orthopedic Surgery Mary Elder, FOOTBALL COACH [address] [place] [address] [phone] Health Maintenance Due Date Last Done Comments Depression Screening 1957 DTaP,Tdap,and Td Vaccines (1 - Tdap) 02/21/1963 Zoster Recombinant Vaccine (SHINGRIX) (1 of 2) 02/21/1994 Medicare Wellness Visit 02/21/2009 PNEUMOCOCCAL VACCINES 65+ (1 of 1 - PPSV23) 02/21/2009 INFLUENZA VACCINE (#1) 2019 documented as of this encounter Procedures Procedure Name Priority Date/Time Associated Diagnosis Comme nts XR LUMBAR SPINE 2 Routine 03/14/2020 10:04 AM Back pain at L4- L5 Results for this VW BOBBIN CLEANING MACHINE OPERATOR level procedure are i n the results section. documented in this encounter Results XR LUMBAR SPINE 2 VW (03/14/2020 10:04 AM BOBBIN CLEANING MACHINE OPERATOR) Specimen Impressions Performed At Impression: PACS/VR/DOSE 1. Grade 2 anterolisthesis of L5 over S1. Narrative Performed At This result has an attachment that is no t available. Exam: XR LUMBAR SPINE 2 VW PACS/VR/DOSE Clinical History: Low Back pain Technique:2 views Comparison: None Findings: 5 nonrib-bearing lumbar-type segments are pr esent. Vertebral body heights are preserved. Intervertebral disc heights are normal. Sacroiliac joints are within normal limits. There is grade 2 ante rolisthesis of L5 over S1. Mild atherosclerotic plaquing of the abdomina l aorta is noted. Procedure Note [facility], Radiant Results Inft User - 2019 2:04 PM BOBBIN CLEANING MACHINE OPERATOR Exam: XR LUMBAR SPINE 2 VW Clinical History: Low Back pain Technique:2 views Comparison: None Findings: 5 nonrib-bearing lumbar-type s egments are present. Vertebral body heights are preserved. Intervertebral di sc heights are normal. Sacroiliac joints are within normal limits. There i s grade 2 anterolisthesis of L5 over S1. Mild atherosclerotic plaquing o f the abdominal aorta is noted. IMPRESSION Impression: 1. Grade 2 anterolisthesis of L5 over S 1. Performing Organization Address City/State/Zipcode Phone Number PACS/VR/DOSE documented in this encounter Visit Diagnoses Diagnosis Back pain at L4-L5 level documented in this encounter Insurance Payer Benefit Plan / Subscriber ID Effective Dates Phone Addre ss Type Group HUMANA - HUMANA [id number] 2019-[facility] Adv MANAGED MEDICARE ERS t PPO MEDICARE (Home) [place] [address] documented as of this encounter
--- OUTSIDE RECORDS SUMMARY | 2020-04-20 12:49 | XMS REPORT | Summary of Care ---
:1945 Author Organization [facility] Address [address] [place], [place] [address] Care Team Providers Name Role Phone Franklin Corado Primary Care Provider Reason for Referral (Routine) Status Reason Specialty Diagnoses / Referred By Referred To Procedures Contact Contact New Request Cardiology Diagnoses Aortic stenosis, severe Terrence Disla MD Procedures ECHO ROUTINE W/DOPPLER COLOR [address] [place] [address] (Routine) Status Reason Specialty Diagnoses / Procedures Referred By Gabrielle العلي To Contact Contact New Request Pain Medicine Diagnoses Aortic stenosis, severe eTrrence Disla, Procedures CONSULT ANESTHESIOLOGY MD [address] [place] [address] (Routine) Status Reason Specialty Diagnoses / Referred By Referred To Procedures Contact Contact New Request Cardiology Diagnoses Aortic stenosis, severe Terrence Disla MD Procedures Cardiac Cath Request for Service (Cardiology Use Only) [address] [place] [address] Reason for Visit Reason Comments Orders Encounter Details Date Type Department Care Team Description 04/14/2020 Telephone [facility] Cardiac Terrence Disla MD Orders Catheterization Lab [address] [place] [id number] [address] [facility] [address] [place] [address] [phone] Allergies No Known Allergiesdocumented as of this encounter (statuses as of 04/14/2020) Medications Medication Sig Dispensed Refills Start Date End Date Status gabapentin 300 mg Take 1 30 capsule 2 03/14/2020 Suspended capsuleIndications: capsule by 1 Spondylolisthesis at mouth daily L5-S1 level, for 90 days. Radiculopathy of leg Additional Information carvediloL 6.25 mg tablet Take 6.25 mg by mouth 0 Suspended daily. atorvastatin 20 mg tablet Take 20 mg by mouth daily. 0 Suspended furosemide 40 mg tablet Take 40 mg by mouth daily. 0 Suspended lisinopriL 2.5 mg tablet Take 2.5 mg by mouth 0 Suspended daily. aspirin 81 mg chewable tablet Take 81 mg by mouth daily. 0 Suspended lidocaine-prilocaine 2.5-2.5 % Apply 1 Tube to area(s) as 0 02/05/2020 Suspended cream needed for Pain. documented as of this encounter (statuses as of 04/14/2020) Active Problems Problem Noted Date Syncope and collapse 04/09/2020 Hematemesis without nausea 04/09/2020 Overview: Added automatically from request for festus berman [id number] ESRD (end stage renal disease) on dialysis 03/14/2020 documented as of this encounter (statuses as of 04/14/2020) Immunizations Name Administration Dates Next Due HEP B, Adult Dosage 07/05/2019, 03/03/2019, 02/01/2019, 10/0 11/2018 Influenza Virus Vaccine 12/10/2019, 12/04/2018 PPD (TB) 11/22/2019, 11/23/2018 documented as of this encounter Social History Tobacco Use Types Packs/Day Years Used Date Former Smoker Smokeless Tobacco: Never Used Education Answer Date Recorded What is the highest level of school you have GED or equivale nt 04/09/2020 completed or the highest degree you have received? Financial Resource Strain Answer Date Recorded How hard is it for you to pay for the very basics like Not h sharon at all 04/09/2020 food, housing, medical care, and heating? Food Insecurity Answer Date Recorded Within the past 12 months, you worried that your food would Never true 04/09/2020 run out before you got money to buy more. Within the past 12 months, the food you bought just didn't N ever true 04/09/2020 last and you didn't have money to get more. Transportation Needs Answer Date Recorded In the past 12 months, has lack of transportation kept you f rom No 04/09/2020 medical appointments or from getting medications? In the past 12 months, has lack of transportation kept you f rom No 04/09/2020 meetings, work, or getting things needed for daily living? 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 documented as of this encounter Last Filed Vital Signs Not on filedocumented in this encounter Miscellaneous Notes Telephone Encounter - Camilla Flaherty RN - 04/14/2020 9:[address] Disla please schedule patient for BAV for Friday04/17/2020 with anesthesia and TTE. documented in this encounter Plan of Treatment Date Type Specialty Care Team Description 05/03/2020 Office Visit Cardiology Yuniel Saez M D [address] [place] [address] [phone] Health Maintenance Due Date Last Done Comments Depression Screening 1957 SARS-CoV-2 (COVID-19) Vaccine (1 of 2) 1960 DTaP,Tdap,and Td Vaccines (1 - Tdap) 02/21/1963 Zoster Recombinant Vaccine (SHINGRIX) (1 02/21/1994 of 2) LUNG CANCER SCREEN: Recommended for age 1202/21/1999 55-80 with 30 + pack year history Medicare Wellness Visit 02/21/2009 PNEUMOCOCCAL VACCINES 65+ (1 of 1 - 02/21/2009 PPSV23) INFLUENZA VACCINE Completed 12/10/2019, 12/04/2018 documented as of this encounter Implants Implanted Type Area Direct Selling Counselor Device Shelf Model / Identifier Expiration Date Ser ial / Lot Dialysis Dialysis Catheter Catheter documented as of this encounter Results Not on filedocumented in this encounter Visit Diagnoses Diagnosis Aortic stenosis, severe - Primary Aortic valve disorders documented in this encounter Insurance Payer Benefit Plan / Subscriber ID Effective Dates Phone Addre ss Type Group HUMANA - HUMANA [id number] 2019-[facility] Adv [facility] MEDICARE t O MEDICARE [employer] [id number] 2020-[employer] Medicare Adv spring t O documented as of this encounter
--- OUTSIDE RECORDS SUMMARY | 2020-04-20 12:49 | XMS REPORT | Summary of Care ---
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 Hospital, Clinic, or Ordered Dose Route Frequency Start Date End D ate Status Other Facility Administered Medication methylPREDNISolone 80 mg Intra-artic ONCE 03/14/2020 03/14/20 2 Ended acetate (DEPO-MEDROL) 80 u 0 mg/mL 80 mg, lidocaine 1% (PF) (XYLOCAINE) 6 mL, bupivacaine (preserv free) 0.5% (SENSORCAINE MPF) 0.5 % (5 mg/mL) 3 mL 10 mL injection documented as of this encounter (statuses as of 03/14/2020) Active Problems Problem Noted Date ESRD (end stage renal disease) on dialysis 03/14/2020 documented as of this encounter (statuses as of 03/14/2020) Social History Tobacco Use Types Packs/Day Years Used Date Never Assessed Sex Assigned at Date Recorded Not on file COVID-19 Exposure Response Date Recorded In the last month, have you been in contact with No / Unsure 03/14/2020 9:36 AM 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 documented as of this encounter Last Filed Vital Signs Vital Sign Reading Time Taken Comments Blood Pressure 121/67 03/14/2020 9:41 AM SWINGING CUT OFF SAW OPERATOR Pulse - - Temperature 35.5 C (95.9 F) 03/14/2020 9:40 AM SWINGING CUT OFF SAW OPERATOR Respiratory Rate - - Oxygen Saturation - - Inhaled Oxygen Concentration - - Weight 71.7 kg (158 lb) 03/14/2020 9:40 AM SWINGING CUT OFF SAW OPERATOR Height 163.8 cm (5' 4.5") 03/14/2020 9:40 AM SWINGING CUT OFF SAW OPERATOR Body Mass Index 26.7 03/14/2020 9:40 AM SWINGING CUT OFF SAW OPERATOR documented in this encounter Progress Notes Mary Snyder, MEKA - 03/14/2020 9:20 AM CST Orthopedic Surgery - Spine 03/14/2020 09:49 Chief complaint: Low back pain and the rt leg radiculopathy History of present illness: Jodi Steve is a 75 year old male coming in today with a chief complaint of low back pain,could not stand straight for more than 3 days,has severe pain,he reports that he lifted heavy heater since then his back pain is getting worse.He is ambulating with the cane which his helping little.He had ESRD and does dialysis M,W,F and has upcoming cardiac cath.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 Denies any bowel/bladder dysfunction. He is currently treating pain with OTC Tylenol with minimal improvement. Accompanied by daughter today who she lives with. No past medical history on file. No past surgical history on file. No current outpatient medications on file prior to visit. No current facility-administered medications on file prior to visit. Not on File Social History Tobacco Use Smoking status: Not on file Substance Use Topics Alcohol use: Not on file Drug use: Not on file Family History: No history of bleeding disorders Review of Systems: No fevers, chills or weight loss, chest pain, shortness of breath, pleurisy, runny nose, sore throat, abdominal pain, constipation, diarrhea, bowel or bladder incontinence, dysuria, joint pain, stiffness, trouble walking, bleeding disorders or thyroid problems Physical Examination: BP 121/67 | Temp 35.5 C (95.9 F) | Ht 64.5" (163.8 cm) | Wt 71.7 kg (158 lb) | BMI 26.70 kg/m General: AAOx3, pleasant and cooperative, antalgic gait, HEENT: Normal cephalic atraumatic, pupils equal reactive to light bilaterally, oropharynx mucus membranes moist. Respiratory: No use of accessory respiratory muscles Cardiovascular: 2+ dorsalis pedis pulses Abdomen: Soft, non-tender distended Skin: no rashes, no discoloration Lumbar spine exam: Positive tenderness over the L4/5 and L5/S1 interspinous spaces. Positive tenderness over bilateral L4/5 L5/S1 facet joints and paraspinal muscles left worse than left. Positive tenderness over bilateral SI joint. Motor power: Right EHL/EDL is 4+ out of 5 DTR: Bilateral knee reflexes are 1+, bilateral ankle reflexes are diminished Sensation: Minimal sensory loss to light touch and right L5/S1 distribution SLR: Positive bilaterally right worse than left in sitting position Imaging: XR spine: Findings: 5 nonrib-bearing lumbar-type segments are present. Vertebral body heights are preserved. Intervertebral disc heights are normal. Sacroiliac joints are within normal limits. There is grade 2 anterolisthesis of L5 over S1. Mild atherosclerotic plaquing of the abdominal aorta is noted. IMPRESSION Impression: 1. Grade 2 anterolisthesis of L5 over S1. Assessment: Jodi Steve is a 75 year old male with Spondylolisthesis at L5-S1 level Grade 2 (primary encounter diagnosis) Radiculopathy of leg Plan: I have discussed the patient's physical exam and reviewed their x-rays and imaging with them in detail. All questions have been answered. We have talked about all the treatment options and have agreed upon: - Rx Flexeril bid for the low back pain and advised not to drive after taking muscle relaxers. - Activity modification to minimize pain -Lumbar corset. - Heat therapy prn for pain. -Rx Gabapentin 300 mg daily afternoon for the lumbar radiculopathy. - Follow up in 4 weeks. PROCEDURE: Left lateral hip was prepped with Betadine. The skin was numbed with cold spray and a mixture of 9 cc of Lidocaine and 80 mg Depomedrol was injected intra-articularly into the left hip andhe tolerated the injection well. MEKA Whitfield. Orthopedics surgery. documented in this encounter Plan of Treatment Date Type Specialty Care Team Description 04/11/2020 Office Visit Orthopedic Surgery Mary Elder FNP [address] [place] [address] [phone] Health Maintenance Due Date Last Done Comments Depression Screening 1957 DTaP,Tdap,and Td Vaccines (1 - Tdap) 02/21/1963 Zoster Recombinant Vaccine (SHINGRIX) (1 of 2) 02/21/1994 Medicare Wellness Visit 02/21/2009 PNEUMOCOCCAL VACCINES 65+ (1 of 1 - PPSV23) 02/21/2009 INFLUENZA VACCINE (#1) 2019 documented as of this encounter Results XR LUMBAR SPINE 2 VW (03/14/2020 10:04 AM SWINGING CUT OFF SAW OPERATOR) Specimen Impressions Performed At Impression: PACS/VR/DOSE [...] Results Inft User - 2019 2:04 PM SWINGING CUT OFF SAW OPERATOR Exam: XR LUMBAR SPINE 2 VW [...] documented in this encounter Visit Diagnoses Diagnosis Spondylolisthesis at L5-S1 level Grade 2 - Primary Radiculopathy of leg Thoracic or lumbosacral neuritis or radi culitis, unspecified documented in this encounter Administered Medications Medication Order MAR Action Action Date Dose Rate Site methylPREDNISolone acetate Given 03/14/2020 10:15 AM 80 mg Left Hip (DEPO-MEDROL) 80 mg/mL 80 mg, SWINGING CUT OFF SAW OPERATOR lidocaine 1% (PF) (XYLOCAINE) 6 mL, bupivacaine (preserv free) 0.5% (SENSORCAINE MPF) 0.5 % (5 mg/mL) 3 mL 10 mL injection Intra-articular, ONCE, 1 dose, 03/14/20 at 1015, 10 mL documented in this encounter Insurance Payer Benefit Plan / Subscriber ID Effective Dates Phone Addre ss Type Group HUMANA - HUMANA [id number] [facility]IC[facility] ERS t PPO MEDICARE documented as of this encounter
--- OUTSIDE RECORDS SUMMARY | 2020-04-20 12:49 | XMS REPORT | Continuity of Care Document ---
:1945 Author Organization [facility] t Address [address] [place] [address] Care Team Providers Name Role Phone Tono VELÁSQUEZ, S Attending Clinician Annie KIM Attending Clinician Singer ALAN Attending Clinician Erin VELÁSQUEZ Attending Clinician Brynn VELÁSQUEZ, F Attending Clinician Nighat VELÁSQUEZ A Attending Clinician Beverly Attending Clinician Claudio ACKERMAN Attending Clinician [place] Bond Attending Clinician Rebeca Wilson Attending Clinician Erin VELÁSQUEZ Admitting Clinician Problems Condition Condition Condition Status Onset Resolution Last Treating Co mments Source Name Details Category Date Date Treatment Clinician Date LEFT RIGHT Diagnosis Active 2019-032020-03-16 Memoria HEART CATH 09:28:00 l LEFT 00:00: Arvind RIGHT 00 HEART CATH Active 03/15/2020 [facility] I35.0 Diagnosis Active 2019-032020-04-14 Mem oria IODINE 05-14 14:52:00 l ALLERGY I35.0 00:00: [place] UNKNOWN IODINE 00 ALLERGY UNKNOWN Active 03/13/2020 [facility] ABNORMAL Diagnosis Active 2019-03-30 M emoria EKG - 13:30:00 l ABNORMAL 00:00: José Luis n EKG 00 Active 03/30/2019 [facility] AVF Diagnosis Active 2019-04-06 Mem oria 1-03 08:47:00 l AVF 00:00: Arvind 00 Active 03/19/2019 [facility] AVF Diagnosis Active 2018-032019-05-03 Mem oria CREATION, 03-31 15:41:00 l LEFT UPPER AVF 00:00: José Luis n EXTREMITY CREATION, 00 LEFT UPPER EXTREMITY Active 01/29/2019 [facility] Anxiety Problem Active 2020-03-20 Bear niki (finding) 09:23:28 l Anxiety [place] (finding) Active Problem 03/20/2020 [facility] Diabetes Problem Active 2020-03-20 Mem oria mellitus 09:23:28 l (disorder) Diabetes He rmann mellitus (disorder) Active Problem 03/20/2020 [facility] End stage Problem Active 2020-03-20 Me moria renal 09:23:28 l disease End [place] (disorder) stage renal disease (disorder) Active Problem 03/20/2020 [facility] Hypertensi Problem Active 2020-03-20 M emoria ve 09:23:28 l disorder, [place] systemic Hypertensi arterial ve (disorder) disorder, systemic arterial (disorder) Active Problem 03/20/2020 [facility] Abnormal Problem 2019-04-01 2019-04-01 Memoria electrocar -14 23:07:11 23:07:11 l diogram Abnormal 18:00: Farnaz nn [ECG] electrocar 00 [EKG] diogram [ECG] [EKG] 03/30/2019 04/01/2019 [facility] Allergies, Adverse Reactions, Alerts Allergy Allergy Status Severity Reaction(s) Onset Inactive Treating Comm ents Source Name Type Date Date Clinician No Known No Known Active Memori a Medicati Medicati l on on Arvind Allergie Allergie s s Social History Social Habit Start Date Stop Date Quantity Comments Source Social History 2019-03-30 2019-03-30 Coreen carlos 17:51:46 17:51:46 Medications Ordered Filled Start Stop Current Ordering Indication Dosage Frequency Signature Comments Components Source Medication Medication Date Date Medication? Clinician (SIG) Name Name Aspirin 81 No Notes: Do Me moria MG Enteric 03-17 not crush l Coated 15:00: or chew. Arvind Tablet 00 (Same As: Ecotrin) Plavix No Notes: Memoria 03-17 (Same As: l 15:00: Plavix) Arvind Aspirin 81 2019-03 Yes 81 mg = 1 Me moria MG Enteric 2-31 tab, PO, l Coated 20:32: Daily, # [place] Tablet 00 30 tab, 6 Refill(s) clopidogrel 2019-03 Yes 75 mg = 1 M emoria 75 MG Oral 2-31 tab, PO, l Tablet 20:32: Daily, # [place] [Plavix] 00 30 tab, 6 Refill(s) Aspirin 81 2019-03 No 81 mg = 1 Me moria MG Enteric 2-31 tab, PO, l Coated 19:25: Daily, # Arvind Tablet 00 30 tab, 6 Refill(s) clopidogrel 2019-03 No 75 mg = 1 M emoria 75 MG Oral 2-31 tab, PO, l Tablet 19:25: Daily, # [place] [Plavix] 00 30 tab, 6 Refill(s) Nitroglycer 2019-03 No Notes: Bear niki in (Same l 19:23: as:Nitroqu Arvind 00 ick, Nitrostat) "Do Not Crush" Sublingual tablet cyclobenzap 2019-03 No 5 mg = 1 Me moria rine 5 mg 2-31 tab, PO, l oral tablet 15:50: BID, 0 Herm marilyn 00 Refill(s) gabapentin 2019-03 Yes 300 mg = 1 M emoria 300 MG Oral cap, PO, l Capsule 15:50: Daily, 0 José Luis n 00 Refill(s) Morphine No 4 mg, Memoria 04-06 Route: l 23:51: IVP, Q6H, [place] 00 Dosing Weight 70.625, kg, PRN Pain Score 4-6, Start date: 04/06/19 17:51:00 SENIOR MATERIALS PLANNER, Duration: 30 day, Stop date: 05/06/19 17:50:00 S[employer]IOR [employer]ERIALS PLANNER protamine No Route: IV, Me moria (ANES) 04-06 Drug form: l 23:42: INJ, ONCE, [place] 00 Stop date: 04/06/19 17:42:00 SENIOR MATERIALS PLANNER Labetalol 2020-0 No 10 mg, Memori a 04-06 Route: l 23:37: IVP, Arvind 00 Q5Min, Dosing Weight 70.625, kg, PRN Elevated BP, Start date: 04/06/19 17:37:00 SENIOR MATERIALS PLANNER, Duration: 5 doses or times, Stop date: Limited # of times Ketorolac 2020-0 No 30 mg, Memori a 04-06 Route: l 23:37: IVP, ONCE, [place] 00 Dosing Weight 70.625, kg, Start date: 04/06/19 17:37:00 S[employer]IOR [employer]ERIALS PLANNER, Stop date: 04/06/19 17:37:00 SENIOR MATERIALS PLANNER Acetaminoph 2020-0 No 1,000 mg, M emoria en 04-06 Route: PO, l 23:37: Drug form: Arvind 00 TAB, ONCE, Dosing Weight 70.625, kg, PRN Pain Score 1-3, Start date: 04/06/19 17:37:00 SENIOR MATERIALS PLANNER Fentanyl 2020-0 No 25 Memoria - microgram, l 23:37: Route: Arvind 00 IVP, Q5Min, Dosing Weight 70.625, kg, PRN Pain Score 4-6, Priority: Routine, Start date: 04/06/19 17:37:00 SENIOR MATERIALS PLANNER, Duration: 4 doses or times, Stop date: Limited # of times Morphine 2020-0 No 4 mg, Memoria 04-06 Route: l 23:37: IVP, [place] 00 Q5Min, Dosing Weight 70.625, kg, PRN Pain Score 7-10, Start date: 04/06/19 17:37:00 SENIOR MATERIALS PLANNER, Duration: 3 doses or times, Stop date: Limited # of times Naloxone 2020-0 No 0.4 mg, Memori a 04-06 Route: l 23:37: IVP, Arvind 00 Q2MIN, Dosing Weight 70.625, kg, PRN Narcotic Reversal, Start date: 04/06/19 17:37:00 SENIOR MATERIALS PLANNER, Duration: 8 doses or times, Stop date: Limited # of times Meperidine 2020-0 No 12.5 mg, Mem oria 04-06 Route: l 23:37: IVP, [place] 00 Q30Min, Dosing Weight 70.625, kg, PRN Other -See Comment, For shivering, Start date: 04/06/19 17:37:00 SENIOR MATERIALS PLANNER, Duration: 2 doses or times, Stop date: Limited # of times Ondansetron 2020-0 No 4 mg, Memor ia 04-06 Route: l 23:37: IVP, ONCE, Dosing Weight 70.625, kg, PRN Nausea & Vomiting, Start date: 04/06/19 17:37:00 SENIOR MATERIALS PL[employer]NER heparin 2020-0 No Route: IV, Bear niki (ANES) 04-06 Drug form: l 23:35: INJ, ONCE, Stop date: 04/06/19 17:35:00 SENIOR MATERIALS PLANNER ondansetron 2019-0 No Route: IV, Memoria (ANES) 04-06 Drug form: l 23:30: INJ, ONCE, Stop date: 04/06/19 17:30:00 SENIOR MATERIALS PLANNER fentaNYL 2020-0 No Route: IV, Mem oria (ANES) 04-06 Drug form: l 23:29: INJ, ONCE, Stop date: 04/06/19 17:29:00 SENIOR [employer]ERIALS PL[employer]NER midazolam 2020-0 No Route: IV, Me moria (ANES) 04-06 Drug form: l 23:25: SOLN, 00 ONCE, Stop date: 04/06/19 17:25:00 SENIOR MATERIALS PLANNER ceFAZolin 2019-0 No Route: IV, Me moria (ANES) 04-06 Drug form: l 23:25: INJ, ONCE, Stop date: 04/06/19 17:25:00 SENIOR MATERIALS PLANNER Sodium 2020-0 No Route: IV, Memor ia Chloride 04-06 Total l 0.9% IV 22:29: Volume: Arvind (ANES) 1000 00 1,000, mL Start date: 04/06/19 16:29:00 SENIOR MATERIALS PLANNER, Stop date: 04/06/19 17:29:00 SENIOR MATERIALS PLANNER Aspirin 2020-0 Yes 0 Memoria 04-06 Refill(s) l 16:40: lisinopril 2019-0 Yes 2.5 mg = 1 M emoria 2.5 mg oral 04-06 tab, PO, l tablet 16:39: Daily, 0 [place] 00 Refill(s) Furosemide 2020-0 Yes 40 mg = 1 Me moria 40 MG Oral -21 tab, PO, l Tablet 16:38: Daily, 0 Arvind 00 Refill(s) atorvastati 2020-0 No PO, Daily, Memoria n -21 0 l 16:38: Refill(s) Arivnd 00 atorvastati 2019-0 Yes 20 mg = 1 M emoria n 20 mg -21 tab, PO, l oral tablet 16:38: Daily, 0 He rmann Refill(s) carvedilol 2019-0 Yes 6.25 mg = Me moria 6.25 mg 04-06 1 tab, PO, l oral tablet 16:37: BID, 0 Herm marilyn Refill(s) normal 2020-0 No 500 mL, Memoria saline 0.9% 04-06 Rate: 40 l IV 500 mL 16:30: ml/hr, José Luis n 00 Infuse over: 12.5 hr, Route: IV, Dosing Weight 70.625 kg, Total Volume: 500, Start date: 04/06/19 10:30:00 S[employer]IOR [employer]ERIAL[employer] PLANNER, Duration: 30 day, Stop date: 05/06/19 10:29:00 SENIOR MATERIALS PLANNER, 1.81, m2 Aspirin 2019-0 No 324 mg, Memoria 03-30 Route: l 18:59: CHEW, Drug form: CHEWTAB, ONCE, Dosing Weight 70.625, kg, Priority: STAT, Start date: 03/30/19 12:59:00 SENIOR MATERIALS PLANNER, Stop date: 03/30/19 12:59:00 SENIOR MATERIALS PL[employer]NER Vancomycin 2019-0 No 1 gm, Memori a 03-30 Route: l 18:00: IVPB, Drug form: INJ, PRE OP, Dosing Weight 70.625, kg, Start date: 03/30/19 12:00:00 S[employer]IOR MATERIALS PLANNER, Duration: 1 day, Stop date: 03/31/19 11:59:00 SENIOR MATERIALS PLANNER, ABX Indication : Surgical Prophylaxi s Ancef 2020-0 No 2 gm, Memoria -14 Route: l 18:00: IVPB, PRE Arvind 00 OP, Dosing Weight 70.625, kg, Start date: 03/30/19 12:00:00 SENIOR MATERIALS PLANNER, Duration: 1 day, Stop date: 03/31/19 11:59:00 SENIOR MATERIALS PLANNER, ABX Indication : Surgical Prophylaxi s Vital Signs Vital Name Observation Time Observation Value Comments Source Respitory Rate 2020-03-16 23:00:00 Memori al [place] Systolic (mm Hg) 2020-03-16 23:00:00 Bear rial [place] Diastolic (mm Hg) 2020-03-16 23:00:00 Mem orial Arvind Respitory Rate 2020-03-16 22:45:00 Memori al Arvind Systolic (mm Hg) 2020-03-16 22:45:00 Bear rial [place] Diastolic (mm Hg) 2020-03-16 22:45:00 Mem orial Arvind Respitory Rate 2020-03-16 22:15:00 Memori al [place] Systolic (mm Hg) 2020-03-16 22:15:00 Bear rial Arvind Diastolic (mm Hg) 2020-03-16 22:15:00 Mem orial [place] Height 2020-03-16 15:45:00 162.56 cm Memorial Arvind Weight 2020-03-16 15:45:00 [facility] [place] BMI Calculated 2020-03-16 15:45:00 Memori al Arvind Respitory Rate 2019-04-07 01:00:00 Memori al [place] Systolic (mm Hg) 2019-04-07 01:00:00 Bear rial Arvind Diastolic (mm Hg) 2019-04-07 01:00:00 Mem orial Arvind Respitory Rate 2019-04-07 00:45:00 Memori al Arvind Systolic (mm Hg) 2019-04-07 00:45:00 Bear rial [place] Diastolic (mm Hg) 2019-04-07 00:45:00 Mem orial [place] Respitory Rate 2019-04-07 00:30:00 Memori al [place] Systolic (mm Hg) 2019-04-07 00:30:00 Bear rial Arvind Diastolic (mm Hg) 2019-04-07 00:30:00 Mem orial Arvind Heart Rate 2019-04-06 16:00:00 [facility] Arvind Systolic (mm Hg) 2019-03-30 20:41:00 Bear rial Arvind Diastolic (mm Hg) 2019-03-30 20:41:00 Mem orial [place] Heart Rate 2019-03-30 20:41:00 [facility] Arvind Systolic (mm Hg) 2019-03-30 20:21:00 Bear garza Arvind Diastolic (mm Hg) 2019-03-30 20:21:00 Mem orial Arvind Heart Rate 2019-03-30 20:21:00 [facility] Arvind Respitory Rate 2019-03-30 20:21:00 Williams doty Arvind Height 2019-03-30 17:46:00 162.56 cm Coreen [place] Weight 2019-03-30 17:46:00 [facility] [place] BMI Calculated 2019-03-30 17:46:00 Memzena al [place] Procedures Procedure Date / Time Performing Clinician Source Performed CABG x 1 - Coronary artery 2013-03-17 [facility]00[facility] [place] bypass graft x 1 Catheterization of both [facility] Arvind left and right heart Encounters Start End Encounter Admission Attending Care Care Encounter Source Date/Time Date/Time Type Type Clinicians Facility Department ID 2020-03-29 Outpatient MHSE CAR [id number] MH 10:59:41 [facility] 2020-04-20 2020-04-20 Emergency Critical access hospital [id number] 02:44:00 05:48:00 Marky Bonilla [id number] [place] [id number] [place] [id number] 2020-04-19 2020-04-19 Transition Kinjal Valencia [id number] 00:00:00 00:00:00 of Care Donna Valencia [id number] [place] [id number] [id number] 2020-04-09 2020-04-18 [facility] Alberto Ruelas [id number] 12:29:00 19:45:00 Encounter Alfredo Khan [id number] [facility] [id number] [facility] 09 Alfredo Khan 2020-04-14 2020-04-14 Telephone Carolyn Disla [id number] 00:00:00 00:00:00 Terrence Long [id number] [facility] [id number] 2020-03-16 2020-03-16 Outpatient Beverly, MHSE MHSE [id number] 09:06:00 17:25:00 Nadish 04 2020-03-16 2020-03-16 Outpatient Beverly, MHSE MHSE [id number] 09:06:00 17:25:00 Nadish 04 2020-03-16 2020-03-16 Outpatient [facility] CAR [id number] MH 09:06[facility] 2020-03-14 Office [facility] [id number] 09:32:42 10:30:27 Visit kraig, ANA PAULA [id number] [facility] 4.2.7.2.686 CENTER AT [id number] GLENN Romano [facility] 2019-04-06 2019-04-06 Outpatient Varun, MHSE MHSE [id number] 08:47:00 19:20:00 Lukas 01 [place] 2019-03-30 2019-03-30 Outpatient Iheme, Ethan MHSE MHSE [id number] 12:37:48 14:48:00 U 02 Results Test Description Test Time Test Comments Results Result Comments Source CHEM PANEL 2020-03-16 105 [facility] Farnaz nn 15:57:00 CHEM PANEL 2020-03-16 31 [facility] Farnaz nn 15:57:00 CHEM PANEL 2020-03-16 4.51 [facility] Farnaz nn 15:57:00 CHEM PANEL 2020-03-16 137 [facility] Farnaz nn 15:57:00 CHEM PANEL 2020-03-16 4.1 [facility] Farnaz nn 15:57:00 CHEM PANEL 2020-03-16 102 [facility] Farnaz nn 15:57:00 CHEM PANEL 2020-03-16 28 [facility] Farnaz nn 15:57:00 CHEM PANEL 2020-03-16 9.3 [facility] Farnaz nn 15:57:00 CHEM PANEL 2020-03-16 11.1 [facility] Farnaz nn 15:57:00 CHEM PANEL 2020-03-16 12 [facility] Farnaz nn 15:57:00 HEMATOLOGY 2020-03-16 7.7 [facility] Farnaz nn 15:57:00 HEMATOLOGY 2020-03-16 3.17 [facility] Farnaz nn 15:57:00 HEMATOLOGY 2020-03-16 10.5 [facility] Farnaz nn 15:57:00 HEMATOLOGY 2020-03-16 31.1 [facility] Farnaz nn 15:57:00 HEMATOLOGY 2020-03-16 98.2 [facility] Farnaz nn 15:57:00 HEMATOLOGY 2020-03-16 15:57:00 Test Item Value Reference Range Interpretation Comme nts MCH (test code = MCH) 33.2 pg 27.0-31.0 [facility] VrtxlouYTLGATZEYT1323-54-49 15:57:0033.8[facility] HermannHEMATOLOGY 2020-03-16 15:57:0014.1[facility] WsmliqiONGIXFOKYX1728-92-56 15:57:37638Fkpsyulj IfamaqaNOEYIZFMRB9102-84-47 15:57:009.6[facility] WwvnyqwGDUCMYLXCL6308-84-28 15:57:0078.6[facility] QizkwxhVUCHSPEYPC5034-57-83 15:57:0013.0[facility] [place] YEYXHVGPHA6759-52-96 15:57:008.0[facility] YabaunnWHACCUYIJU8671-69-73 15:57:000.1 Memorial YeqkmdaBVJFPSEOPX0501-25-92 15:57:000.3[facility] HermannHEMATOLOGY 2020-03-16 15:57:006.0[facility] UxjwztzGITYEFVXZO9262-72-41 15:57:001.0[facility] ZnxwaosJZIYYWXVTL9110-89-16 15:57:000.6[facility] GklnilwWNUVVKYURZ6547-57-81 15:19:00Not Detected (03/16/20 9:19 AM)[facility] HermannBLOOD BANK RESULTS 2019-04-06 15:47:00Negative (04/06/19 9:47 AM)[facility] HermannCHEM PANEL 2019-04-06 15:47:0082[facility] HermannCHEM XREBL4975-82-10 15:47:0035[facility] HermannCHEM ALOQF9761-12-34 15:47:005.65[facility] HermannCHEM LSTSB7079-95-68 15:47:53417Dgzcwogz HermannCHEM NFABZ9981-10-36 15:47:004.5[facility] HermannCHEM FGVLB3532-98-66 15:47:20847Dqekjdgw HermannCHEM XVGXK9484-11-80 15:47:0027 [facility] HermannCHEM LNCJD8005-93-93 15:47:009.3[facility] HermannCHEM PANEL 2019-04-06 15:47:0010.5[facility] HermannCHEM YCDYG5037-17-80 15:47:009[facility] HermannCARDIAC VKJYXRB5087-05-96 18:55:0085[facility] HermannCARDIAC ENZYMES 2019-03-30 18:55:00<0.02[facility] HermannCHEM BMBOZ7375-07-04 18:55:0095 [facility] HermannCHEM ROMMM6716-50-44 18:55:0039[facility] HermannCHEM PANEL 2019-03-30 18:55:005.55[facility] HermannCHEM MGNJB2367-26-32 18:55:05124Xovxoolc HermannCHEM MBVCI3381-11-63 18:55:004.3[facility] HermannCHEM SOTWD7249-34-28 18:55:12240Nwcbkzwd HermannCHEM JKZFZ0972-45-72 18:55:0027[facility] HermannCHEM AMGIX0821-82-69 18:55:009.4[facility] HermannCHEM RMDFB4943-07-80 18:55:008.1 [facility] HermannCHEM SYLKD5093-65-72 18:55:003.7[facility] HermannCHEM PANEL 2019-03-30 18:55:0029[facility] HermannCHEM EVHCF1585-08-71 18:55:0012[facility] HermannCHEM CPWLD2814-02-20 18:55:45754Xhshzxhg HermannCHEM EXFYK5637-45-27 18:55:000.4[facility] HermannCHEM EBTNA8998-71-60 18:55:0010.3[facility] HermannCHEM BTPVX7293-71-94 18:55:00 Test Item Value Reference Range Interpretation Comments B/C Ratio (test code = B/C Ratio) 7 1 6-25 [facility] HermannCHEM [id number] 18:55:004.4[facility] HermannCHEM PANEL 2019-03-30 18:55:00 Test Item Value Reference Range Interpretation Comments A/G Ratio (test code = A/G Ratio) 0.8 1 0.7-1.6 [facility] [id number] 18:55:009[facility] HermannHEMATOLOGY 2019-03-30 18:55:006.6[facility] JtlggvqANWFRZWUDP5207-22-42 18:55:003.81[facility] WrlrvdaURMORJSURU2218-20-52 18:55:0012.1[facility] HcemhsaKFYEIGYPOI4139-78-26 18:55:0035.7[facility] EestastBNSXHOTQQM5414-50-42 18:55:0093.6[facility] Arvind ZCSLWVVYHS4004-15-92 18:55:00 Test Item Value Reference Range Interpretation Comments MCH (test code = MCH) 31.7 pg 27.0-31.0 [facility] CampusJgytphaUQJWZYYEHQ1463-34-62 18:55:0033.8[facility] HermannHEMATOLOGY 2019-03-30 18:55:0014.4[facility] GwovojoPHFWMGYRIZ1002-18-41 18:55:61293Fflshdjw VlmcimdPBDQOYLREP1079-35-70 18:55:009.5[facility] ImhyldwAJEZLYTXJK3329-35-56 18:55:00 Test Item Value Reference Range Interpretation Comments PT (test code = PT) 14.0 s 12.0-14.7 [facility] CampusCleaxkgMAQGPVWVOV7745-46-90 18:55:00 Test Item Value Reference Range Interpretation Comments INR (test code = INR) 1.08 1 0.85-1.17 [facility] DsgwwpbJKFOEIDOJX2828-87-88 18:55:00 Test Item Value Reference Range Interpretation Comments PTT (test code = PTT) 35.6 s 22.9-35.8 [facility] CampusYypnqnqNOGWEORIRW2328-72-91 18:55:0056.7[facility] HermannHEMATOLOGY 2019-03-30 18:55:0024.2[facility] UsmsuwhOMZNQJSJSX4414-76-46 18:55:0012.0[facility] UoekyftCXRHKWTEOJ5883-20-04 18:55:006.2[facility] OilcjtqURKOPCZWJJ9629-08-64 18:55:000.9[facility] RxstvvzTWAGYUGALO1342-33-90 18:55:003.7[facility] [place] KDHFDISXZP2118-25-70 18:55:001.6[facility] RpzgxjxLUPXPCCZPY5766-19-38 18:55:000.8 [facility] StiefmmFTOEGDAUDD5739-76-78 18:55:000.4[facility] HermannHEMATOLOGY 2019-03-30 18:55:000.1[facility] [place]
--- OUTSIDE RECORDS SUMMARY | 2020-04-20 12:49 | XMS REPORT | Summary of Care ---
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 documented as of this encounter Last Filed Vital Signs Vital Sign Reading Time Taken Comments Blood Pressure 121/67 03/14/2020 9:41 AM CHIEF ENGINEER [employer]ATERWORKS Pulse - - Temperature 35.5 C (95.9 F) 03/14/2020 9:40 AM CHIEF ENGINEER [employer]ATERWORKS Respiratory Rate - - Oxygen Saturation - - Inhaled Oxygen Concentration - - Weight 71.7 kg (158 lb) 03/14/2020 9:40 AM CHIEF ENGINEER WATERWORKS Height 163.8 cm (5' 4.5") 03/14/2020 9:40 AM CHIEF ENGINEER WATERWORKS Body Mass Index 26.7 03/14/2020 9:40 AM CHIEF ENGINEER [employer] documented in this encounter Progress Notes Mary [...] Visit Orthopedic Surgery Mary Elder FNP [address] [place] [address] [phone] Health Maintenance Due Date Last Done Comments Depression Screening 1957 DTaP,Tdap,and Td Vaccines (1 - Tdap) 02/21/1963 Zoster Recombinant Vaccine (SHINGRIX) (1 of 2) 02/21/1994 Medicare Wellness Visit 02/21/2009 PNEUMOCOCCAL VACCINES 65+ (1 of 1 - PPSV23) 02/21/2009 INFLUENZA VACCINE (#1) 2019 documented as of this encounter Results XR LUMBAR SPINE 2 VW (03/14/2020 10:04 AM CHIEF ENGINEER [employer]WORKS) Specimen Impressions Performed At Impression: PACS/VR/DOSE 1. [...] Results Inft User - 2019 2:04 PM CHIEF ENGINEER [employer]WORKS Exam: XR LUMBAR SPINE 2 VW Clinical [...] Date Dose Rate Site methylPREDNISolone acetate Given by Provider 03/14/2020 10:15 80 mg Left Hip (DEPO-MEDROL) 80 mg/mL 80 mg, AM CHIEF ENGINEER [employer]WORKS lidocaine 1% (PF) (XYLOCAINE) 6 mL, bupivacaine (preserv free) 0.5% (SENSORCAINE MPF) 0.5 % (5 mg/mL) 3 mL 10 mL injection Intra-articular, ONCE, 1 dose, 03/14/20 at 1015, 10 mL documented in this encounter Insurance Payer Benefit Plan / Subscriber ID Effective Dates Phone Addre ss Type Group HUMANA - HUMANA [id number] [facility]IC[facility] ERS t PPO MEDICARE documented as of this encounter
--- OUTSIDE RECORDS SUMMARY | 2020-04-20 12:49 | XMS REPORT | Summary of Care ---
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 documented as of this encounter Last Filed Vital Signs Vital Sign Reading Time Taken Comments Blood Pressure 121/67 03/14/2020 9:41 AM ELECTRON BEAM OPERATOR Pulse - - Temperature 35.5 C (95.9 F) 03/14/2020 9:40 AM ELECTRON BEAM OPERATOR Respiratory Rate - - Oxygen Saturation - - Inhaled Oxygen Concentration - - Weight 71.7 kg (158 lb) 03/14/2020 9:40 AM ELECTRON BEAM OPERATOR Height 163.8 cm (5' 4.5") 03/14/2020 9:40 AM ELECTRON BEAM OPERATOR Body Mass Index 26.7 03/14/2020 9:40 AM ELECTRON BEAM OPERATOR documented in this encounter Progress Notes [...] Visit Orthopedic Surgery Mary Elder FNP [address] [place] [address] [phone] Health Maintenance Due Date Last Done Comments Depression Screening 1957 DTaP,Tdap,and Td Vaccines (1 - Tdap) 02/21/1963 Zoster Recombinant Vaccine (SHINGRIX) (1 of 2) 02/21/1994 Medicare Wellness Visit 02/21/2009 PNEUMOCOCCAL VACCINES 65+ (1 of 1 - PPSV23) 02/21/2009 INFLUENZA VACCINE (#1) 2019 documented as of this encounter Results XR LUMBAR SPINE 2 VW (03/14/2020 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) Specimen Impressions Performed At Impression: PACS/VR/DOSE [...] Results Inft User - 2019 2:04 PM ELECTRON BEAM OPERATOR Exam: XR LUMBAR SPINE 2 VW [...] Left Hip (DEPO-MEDROL) 80 mg/mL 80 mg, ELECTRON BEAM OPERATOR lidocaine 1% (PF) (XYLOCAINE) 6 mL, bupivacaine (preserv free) 0.5% (SENSORCAINE MPF) 0.5 % (5 mg/mL) 3 mL 10 mL injection Intra-articular, ONCE, 1 dose, 03/14/20 at 1015, 10 mL documented in this encounter Insurance Payer Benefit Plan / Subscriber ID Effective Dates Phone Addre ss Type Group HUMANA - HUMANA [id number] [facility] Adv MANAGED MEDICARE ERS t PPO MEDICARE documented as of this encounter
--- OUTSIDE RECORDS SUMMARY | 2020-04-20 12:53 | XMS REPORT | Summary of Care ---
:1945 Author Organization [facility] Address [address] [place] [address] Care Team Providers Name Role Phone Franklin Corado Primary Care Provider Reason for Referral Radiology Services (STAT) Status Reason Specialty Diagnoses / Referred By Referred To Procedures Contact Contact New Request Diagnostic Diagnoses Shortness of breath Marky Power Radiology Procedures XR CHEST 1 CYNTHIA Jiang MD [address] [place] [id number] [place] [address] Reason for Visit Reason Comments Vomiting Shortness of Breath Auth/Cert Status Reason Specialty Diagnoses / Referred By Referred To Procedures Contact Contact Emergency Medicine Diagnoses shortness of breath [facility] [address] [place] [address] Fax: Encounter Details Date Type Department Care Team Description 04/20/2020 Emergency [facility]-Emergency Marky Power, ESRD on h emodialysis (Primary Dx); Department MD Haq of breath; [address] [place] [address] Nausea and vomiting in adult patient; Drive [id number] Transaminitis; [address] Elevated troponin I level; [phone] [id number] Anemia of chronic renal failure, unspeci fied CKD stage [phone] Allergies No Known Allergiesdocumented as of this encounter (statuses as of 04/20/2020) Medications Medication Sig Dispensed Refills Start Date End Date Status gabapentin 300 mg Take 1 capsule 30 capsule 2 03/14/202006/12 Active capsuleIndications: by mouth daily Spondylolisthesis at for 90 days. L5-S1 level, Radiculopathy of leg furosemide 40 mg tablet Take 40 mg by 0 Active mouth daily. lidocaine-prilocaine Apply 1 Tube 0 02/05/2020 Active 2.5-2.5 % cream to area(s) as needed for Pain. carvediloL 6.25 mg Take 1 tablet 60 tablet 11 04/18/2020 Active tabletIndications: by mouth 2 Syncope and collapse, (two) times NSTEMI (non-ST elevated daily with myocardial infarction), meals. Aortic valve stenosis, etiology of cardiac valve disease unspecified lisinopriL 5 mg Take 1 tablet 90 tablet 3 04/19/2020 Active tabletIndications: by mouth Syncope and collapse, daily. NSTEMI (non-ST elevated myocardial infarction), Aortic valve stenosis, etiology of cardiac valve disease unspecified levothyroxine 50 mcg Take 1 tablet 90 tablet 3 04/19/2020 Active tabletIndications: by mouth every Syncope and collapse, morning. NSTEMI (non-ST elevated myocardial infarction), Aortic valve stenosis, etiology of cardiac valve disease unspecified pantoprazole 40 mg EC Take 1 tablet 90 tablet 0 04/18/2020 Active tabletIndications: by mouth Syncope and collapse, daily. NSTEMI (non-ST elevated myocardial infarction), Aortic valve stenosis, etiology of cardiac valve disease unspecified aspirin 81 mg chewable Take 1 tablet 90 tablet 3 04/19/2020 Active tabletIndications: by mouth Syncope and collapse, daily. NSTEMI (non-ST elevated myocardial infarction), Aortic valve stenosis, etiology of cardiac valve disease unspecified atorvastatin 80 mg Take 1 tablet 90 tablet 3 04/18/2020 Active tabletIndications: by mouth at Syncope and collapse, bedtime. NSTEMI (non-ST elevated myocardial infarction), Aortic valve stenosis, etiology of cardiac valve disease unspecified clopidogreL 75 mg Take 1 tablet 90 tablet 3 04/19/2020 Active tabletIndications: by mouth Syncope and collapse, daily. NSTEMI (non-ST elevated myocardial infarction), Aortic valve stenosis, etiology of cardiac valve disease unspecified documented as of this encounter (statuses as of 04/20/2020) Active Problems Problem Noted Date Syncope and collapse 04/09/2020 Hematemesis without nausea 04/09/2020 Overview: Added automatically from request for festus berman [id number] ESRD (end stage renal disease) on dialysis 03/14/2020 documented as of this encounter (statuses as of 04/20/2020) Immunizations Name Administration Dates Next Due HEP [...] been in contact with No / Unsure 04/20/2020 2:42 AM PROGRAM ADVOCATE someone who was confirmed or suspected to have Coronavirus / COVID-19? documented as of this encounter Last Filed Vital Signs Vital Sign Reading Time Taken Comments Blood Pressure 104/59 04/20/2020 5:00 AM PROGRAM ADVOCATE Pulse 74 04/20/2020 5:00 AM PROGRAM ADVOCATE Temperature 35.3 C (95.6 F) 04/20/2020 2:51 AM PROGRAM ADVOCATE Respiratory Rate 18 04/20/2020 5:00 AM PROGRAM ADVOCATE Oxygen Saturation 100% 04/20/2020 5:00 AM PROGRAM ADVOCATE Inhaled Oxygen Concentration - - Weight 67.1 kg (148 lb) 04/20/2020 2:51 AM PROGRAM ADVOCATE Height 162.6 cm (5' 4") 04/20/2020 2:51 AM PROGRAM ADVOCATE Body Mass Index 25.4 04/20/2020 2:51 AM PROGRAM ADVOCATE documented in this encounter Discharge Instructions Marky Tucker MD - 04/20/2020 DIAGNOSIS Diagnoses that have been ruled out: None Diagnoses that are still under consideration: None Final diagnoses: Shortness of breath Nausea and vomiting in adult patient Transaminitis Elevated troponin I level ESRD on hemodialysis Anemia of chronic renal failure, unspecified CKD stage NO LIFE-THREATENING FINDINGS ON TODAY'S EXAM. PROCEDURES IN THE ER TODAY: Orders Placed This Encounter Procedures XR CHEST 1 VW CBC WITH DIFF COMP. METABOLIC PANEL (94532) TROPONIN I MEDICATIONS ADMINISTERED IN THE ER TODAY AND DISCHARGE MEDICATIONS: No orders of the defined types were placed in this encounter. FOLLOW-UP RECOMMENDATIONS: RECOMMEND FOLLOW-UP WITH YOUR PRIMARY CARE PROVIDER OR NEPHROLOGY/KINESIOLOGIST IN AM DICUSSED RETURN TO ER FOR WORSENING OF SYMPTOMS OR ANY NEW CONCERNS documented in this encounter ED Notes Cydney Lozano RN - 04/20/2020 2:43 AM CSTCC: Patient has had 4 episodes of vomiting tonight, SOB, hypotension. Pt had an NSTEMI with stenting and value replacement on 04/13/20, incidentally had a GI Bleed and had an EGD. Discharged 2 days ago. Patient is feeling week and short of breath. PMHx: Dialysis M/W/F, HTN, DM, Hypothyroidism, PSH: left arm AV Fistula Tetanus: UTD Awake, alert, oriented, resp reg unlabored, skin warm and dry, color appropriate for race, moves allext without difficulty, amb with standby assist Appears in no distress Marky Uriostegui MD - 04/20/2020 2:40 AM CST [facility] Emergency Department Note Patient Name: Jodi Steve Date of : 1945 75 year old male Treatment Room: TX7/TX7 Primary Care Physician: Franklin Corado Patient Escorted by: Self [9] [facility] [43] EMS Treatment Prior to ED Arrival: [employer]OR TUMBLERS treatment: None Travel and Exposure Screening: Symptoms Does patient have any of these symptoms?: (not recorded) Exposure Screening Has patient had contact with someone with a communicable disease in the last month?: (not recorded) Diseases exposed to:: (not recorded) Is Patient ?: (not recorded) Exposure Date: (not recorded) Chief Complaint: Chief Complaint Patient presents with Vomiting Shortness of Breath History of Present Illness: HPI Past Medical History/Immunizations: Past Medical History: Diagnosis Date 3-vessel CAD ESRD (end stage renal disease) HLD (hyperlipidemia) HTN (hypertension) Tetanus received in last 5 years: Unknown Allergies: No Known Allergies Past Social History: Tobacco Use Former Smoker. Smokeless Tobacco: Never used smokeless tobacco. Past Surgical History: Past Surgical History: Procedure Laterality Date ESOPHAGOGASTRODUODENOSCOPY N/A 04/12/2020 Surgeon: Hilton Vargas MD; Location: Endoscopy ([facility]) OR Location Review of Systems: Review of Systems Physical Exam: ED Triage Vitals [04/20/20 0251] Weight 67.1 kg (148 lb) Actual or estimated Estimated by patient/family report Height 1.626 m (5' 4") BP (!) 88/56 Pulse 66 Resp 16 Temp 35.3 C (95.6 F) Temp source Oral SpO2 94 % Measured on Room air Physical Exam Radiology: Hospital Encounter on 04/20/20 XR CHEST 1 VW Narrative EXAM: XR CHEST 1 VW HISTORY: SOB COMPARISON: Chest x-ray 04/12/2020 TECHNIQUE: AP view radiograph of the chest. Impression FINDINGS/IMPRESSION: Bilateral hilar prominence. No focal consolidation, pleural effusion or pneumothorax is seen. The cardiac silhouette is enlarged, as before. Calcifications at the aortic arch. No acute bony abnormality. Changes of median sternotomy. Preliminary Report Dictated by Resident: Desmond Gallo Lab Results (24h): Recent Results (from the past 24 hour(s)) CBC WITH DIFF Collection Time: 04/20/20 3:31 AM Result Value Ref Range WBC 6.33 4.20 - 10.70 10*3/L RBC 2.41 (L) 4.26 - 5.52 10*6/L HGB 7.9 (L) 12.2 - 16.4 g/dL HCT 24.6 (L) 38.4 - 49.3 % MCV 102.1 (H) 81.7 - 95.6 fL MCH 32.8 (H) 26.1 - 32.7 pg MCHC 32.1 31.2 - 35.0 g/dL RDW-SD 51.7 (H) 38.5 - 51.6 fL RDW-CV 14.1 12.1 - 15.4 % PLT 146 (L) 150 - 328 10*3/L MPV 11.1 9.8 - 13.0 fL NRBC/100 WBC 1.3 0.0 - 10.0 /100 WBCs NRBC x10^3 0.08 10*3/L GRAN MAT (NEUT) % 77.5 % IMM GRAN % 2.10 % LYMPH % 8.5 % MONO % 11.7 % EOS % 0.0 % BASO % 0.2 % GRAN MAT x10^3(ANC) 4.91 1.99 - 6.95 10*3/uL IMM GRAN x10^3 0.13 (H) 0.00 - 0.06 10*3/uL LYMPH x10^3 0.54 (L) 1.09 - 3.23 10*3/uL MONO x10^3 0.74 0.36 - 1.02 10*3/uL EOS x10^3 <0.03 (L) 0.06 - 0.53 10*3/uL BASO x10^3 <0.03 0.01 - 0.09 10*3/uL COMP. METABOLIC PANEL ([id number]) Collection Time: 04/20/20 3:31 AM Result Value Ref Range NA 138 135 - 145 mmol/L K 4.3 3.5 - 5.0 mmol/L CL 102 98 - 108 mmol/L CO2 TOTAL 22 (L) 23 - 31 mmol/L AGAP 14 2 - 16 BUN 25 (H) 7 - 23 mg/dL GLUCOSE 124 (H) 70 - 110 mg/dL CREATININE 4.06 (H) 0.60 - 1.25 mg/dL TOTAL BILI 1.3 (H) 0.1 - 1.1 mg/dL CALCIUM 8.6 8.6 - 10.6 mg/dL T PROTEIN 6.4 6.3 - 8.2 g/dL ALBUMIN 3.5 3.5 - 5.0 g/dL ALK PHOS 184 (H) 34 - 122 U/L ALTv 292 (H) 5 - 50 U/L AST(SGOT) 345 (H) 13 - 40 U/L eGFR Calculation (Non-) 14.4 mL/min/1.73m2 eGFR Calculation () 17.5 mL/min/1.73m2 TROPONIN I Collection Time: 04/20/20 3:31 AM Result Value Ref Range TROPONIN I 1.150 (H) <=0.034 ng/mL EKG: Orders and Treatments: Orders Placed This Encounter Procedures XR CHEST 1 VW CBC WITH DIFF COMP. METABOLIC PANEL (52396) TROPONIN I No orders of the defined types were placed in this encounter. ED COURSE MDM: Coding Scoring Tools: No data recorded Diagnosis/Impression: ICD-10-CM ICD-9-CM 1. ESRD on hemodialysis N18.6 585.6 Z99.2 V45.11 2. Shortness of breath R06.02 786.05 3. Nausea and vomiting in adult patient R11.2 787.01 4. Transaminitis R74.01 790.4 5. Elevated troponin I level R77.8 790.6 6. Anemia of chronic renal failure, unspecified CKD stage N18.9 285.21 D63.1 585.9 Disposition/Condition: ED Disposition ED Disposition Condition Comment Disch - Home Stable Discharge Medications: Patient's Medications START taking these medications No medications on file CONTINUE taking these medications which have NOT CHANGED ASPIRIN 81 MG CHEWABLE TABLET Take 1 tablet by mouth daily. ATORVASTATIN 80 MG TABLET Take 1 tablet by mouth at bedtime. CARVEDILOL 6.25 MG TABLET Take 1 tablet by mouth 2 (two) times daily with meals. CLOPIDOGREL 75 MG TABLET Take 1 tablet by mouth daily. FUROSEMIDE 40 MG TABLET Take 40 mg by mouth daily. GABAPENTIN 300 MG CAPSULE Take 1 capsule by mouth daily for 90 days. LEVOTHYROXINE 50 MCG TABLET Take 1 tablet by mouth every morning. LIDOCAINE-PRILOCAINE 2.5-2.5 % CREAM Apply 1 Tube to area(s) as needed for Pain. LISINOPRIL 5 MG TABLET Take 1 tablet by mouth daily. PANTOPRAZOLE 40 MG EC TABLET Take 1 tablet by mouth daily. START taking Modified Medications as Prescribed No medications on file STOP taking these medications No medications on file Follow-up: Contact information for follow-up Franklin Corado Specialty: IM-INTERNAL MEDICINE Relationship: PCP - [address] Welsh [facility] [id number] Electronically signed by: Marky Power MD 04/20/2020 4:43 AM RAM ADVOCATE documented in this encounter Miscellaneous Notes ED Nurse Note - Janet Isabel RN - 04/20/2020 5:47 AM CSTDrValerie Power discharged the patient home with instructions given. Patient left ER vitally stable by wheelchair accompanied by ED RN and states that he feels better. No valuables left in ED. documented in this encounter Plan of Treatment Date Type Specialty Care Team Description 05/03/2020 Office Visit Cardiology Yuniel Saez M D [address] [facility] [address] [place], [place] [address] [phone] 06/13/2020 Office Visit Cardiology Terrence Disla MD [address] [facility] [address] [place], [place] [address] [phone] Name Type Priority Associated Diagnoses Date/Ti me EKG-12 LEAD ROUTINE HEART STATION STAT Shortness of breath 04/20/2020 2:53 AM ONCE PROGRAM ADVOCATE EKG-12 LEAD ROUTINE HEART STATION STAT Shortness of breath 04/20/2020 3:24 AM ONCE PROGRAM ADVOCATE XR CHEST 1 VW IMAGING STAT Shortness of breath 021 3:44 AM PROGRAM ADVOCATE Name Type Priority Associated Diagnoses Order S chedule EKG-12 LEAD ROUTINE HEART STATION STAT Shortness of breath ONCE for 1 Occurrences ONCE starting 2020 until 1 EKG-12 LEAD ROUTINE HEART STATION STAT Shortness of breath ONCE for 1 Occurrences ONCE starting 2020 until 1 Health Maintenance Due Date Last Done Comments [...] of this encounter Implants Implanted Type Area [employer] Device Shelf Model / Identifier Expiration Date Ser ial / Lot Dialysis Dialysis Catheter Catheter documented as of this encounter Procedures Procedure Name Priority Date/Time Associated Diagnosis Comme nts XR CHEST 1 VW STAT 04/20/2020 3:44 AM PROGRAM ADVOCATE Shortness of rusty ath Procedure Note - [facility], Radia nt Results Inft User - 04/20/2020 3:49 AM PROGRAM ADVOCATE EXAM: XR CHEST 1 VW HISTORY: SOB COMPARISON: Chest x-ray 04/12 TECHNIQUE: AP view radiograp h of the chest. IMPRESSION FINDINGS/IMPRESSION: Bilateral hilar prominence. No focal consolidation, pleural effusion or pneumothorax is seen. The cardiac silhouette is en larged, as before. Calcifications at the aortic arch. No acute bony abnormality. C hanges of median sternotomy. Preliminary Report Dictated by Resident: Desmond Gallo CBC WITH DIFF STAT 04/20/2020 3:31 AM Shortness of breath Results for this PROGRAM ADVOCATE procedure are i n the results section. COMP. METABOLIC STAT 04/20/2020 3:31 AM Shortness of breat h Results for this PANEL ([id number]) PROGRAM ADVOCATE procedure are in the results section. TROPONIN I STAT 04/20/2020 3:31 AM Shortness of breath R esults for this PROGRAM ADVOCATE procedure are i n the results section. documented in this encounter Results TROPONIN I (04/20/2020 3:31 AM PROGRAM ADVOCATE) Pathologist Sig nature TROPONIN I 1.150 (H) <=0.034 ng/mL [facility] Specimen Blood - VENOUS Narrative Performed At Equal or Less than 0.034 ng/ml---Normal [facility] Note: Cardiac troponin begins to rise 3-4 hours after the onset of ischemia. Repeat in 4-6 hours if the sample was drawn within 3-4 hours of the onset of the symptom and found normal. Between 0.035 and 0.120 ng/mL--- Borderline. Questionable myocardial injury or necros is Note: Serial measurement may be necessary to confirm or exclude the diagnosis of myocardial injury or necrosis; Clinical correlation (symptoms, EKGs, imaging studies, and others) required; Repeat in 4-6 hours if clinically indicated. Equal or Higher than 0.121 ng/mL---Abnormal. Myocardial Injury or Necrosis Likely Biotin has been reported to cause a negative bias, interpret results relative to patient's use of biotin. Performing Organization Address City/State/Zipcode Phone Number [facility] CLIA: [id number] [place] [address] COMP. METABOLIC PANEL ([id number]) (04/20/2020 3:31 AM PROGRAM ADVOCATE) NA 138 135 - 145 [facility] mmol/L [facility] K 4.3 3.5 - 5.0 [facility] mmol/L [facility] CL 102 98 - 108 mmol/L [facility] CO2 TOTAL 22 (L) 23 - 31 mmol/L [facility] AGAP 14 2 - 16 [facility] BUN 25 (H) 7 - 23 mg/dL [facility] GLUCOSE 124 (H) 70 - 110 mg/dL [facility] CREATININE 4.06 (H) 0.60 - 1.25 [facility] mg/dL [facility] TOTAL BILI 1.3 (H) 0.1 - 1.1 mg/dL [facility] CALCIUM 8.6 8.6 - 10.6 [facility] mg/dL [facility] T PROTEIN 6.4 6.3 - 8.2 g/dL [facility] ALBUMIN 3.5 3.5 - 5.0 g/dL [facility] ALK PHOS 184 (H) 34 - 122 U/L [facility] ALTv 292 (H) 5 - 50 U/L [facility] AST(SGOT) 345 (H) 13 - 40 U/L [facility] eGFR Calculation 14.4 mL/min/1.73m2 [facility] ([facility]AT[facility] [place]) eGFR Calculation 17.5 mL/min/1.73m2 [facility] () [facility] Specimen Blood - VENOUS Narrative Performed At [facility] [place] [place] of Glomerular Filtration Rate (GFR) [facility] and Staging of Kidney Disease* + + +- + | GFR (mL/min/1.73 m2) | With Kidney Damage | Without Kidney Damage + + +- + | >90 | Stage one | Normal + + +- + | 60-89 | Stage two | Decreased GFR + + +- + | 30-59 | Stage three | Stage three + + +- + | 15-29 | Stage four | Stage four + + +- + | <15 (or dialysis) | Stage five | Stage five + + +- + *Each stage assumes the associated GFR level has been in effect for at least three months. Stages 1 to 5, with or without kidney disease, indicate chronic kidney disease. Notes: Determination of stages one and two (with eGFR >59mL/min/1.73 m2) requires estimation of kidney damage for at least three months as defined by structural or functional abnormalities of the kidney, manifested by either: Pathological abnormalities or Markers of kidney damage (including abnormalities in the composition of the blood or urine or abnormalities in imaging tests). Performing Organization Address City/State/Zipcode Phone Number [facility] CLIA: [id number] [place] [address] CBC WITH DIFF (04/20/2020 3:31 AM PROGRAM ADVOCATE) [facility] nature WBC 6.33 4.20 - 10.70 [facility] 10*3/L [facility] RBC 2.41 (L) 4.26 - 5.52 [facility] 10*6/L [facility] HGB 7.9 (L) 12.2 - 16.4 [facility] g/dL [facility] HCT 24.6 (L) 38.4 - 49.3 % [facility] MCV 102.1 (H) 81.7 - 95.6 fL [facility] MCH 32.8 (H) 26.1 - 32.7 pg [facility] MCHC 32.1 31.2 - 35.0 [facility] g/dL [facility] RDW-SD 51.7 (H) 38.5 - 51.6 fL [facility] RDW-CV 14.1 12.1 - 15.4 % [facility] PLT 146 (L) 150 - 328 [facility] 10*3/L [facility] MPV 11.1 9.8 - 13.0 fL [facility] NRBC/100 WBC 1.3 0.0 - 10.0 /100 [facility] WBCs [facility] NRBC x10^3 0.08 10*3/L [facility] GRAN MAT (NEUT) % 77.5 % [facility] IMM GRAN % 2.10 % [facility] LYMPH % 8.5 % [facility] MONO % 11.7 % [facility] EOS % 0.0 % [facility] BASO % 0.2 % [facility] GRAN MAT x10^3(ANC) 4.91 1.99 - 6.95 [facility] 10*3/uL [facility] IMM GRAN x10^3 0.13 (H) 0.00 - 0.06 [facility] 10*3/uL [facility] LYMPH x10^3 0.54 (L) 1.09 - 3.23 [facility] 10*3/uL [facility] MONO x10^3 0.74 0.36 - 1.02 [facility] 10*3/uL [facility] EOS x10^3 <0.03 (L) 0.06 - 0.53 [facility] 10*3/uL [facility] BASO x10^3 <0.03 0.01 - 0.[address] [facility] Specimen Blood - VENOUS Performing Organization Address City/State/Zipcode Phone Number [facility] CLIA: [id number] [place] [address] documented in this encounter Visit Diagnoses Diagnosis ESRD on hemodialysis - Primary End stage renal disease Shortness of breath Nausea and vomiting in adult patient Nausea with vomiting Transaminitis Nonspecific elevation of levels of trans aminase or lactic acid dehydrogenase (LDH) Elevated troponin I level Other abnormal blood chemistry Anemia of chronic renal failure, unspeci fied CKD stage documented in this encounter Insurance Payer Benefit Plan / Subscriber ID Effective Dates Phone Addre ss Type Group [email or web address] [id number] 2020-Present Medicare Adv [place] ([place]) [place] [address] documented as of this encounter
--- OUTSIDE RECORDS SUMMARY | 2020-04-20 12:53 | XMS REPORT | Summary of Care ---
:1945 Author Organization [facility] Address [address] [place] [id number] Care Team Providers Name Role Phone Franklin Melgar Primary Care Provider Reason for Referral (Routine) Status Reason Specialty Diagnoses / Referred By Referred To Procedures Contact Contact New Request TS-THORACIC Diagnoses Syncope and collapse NSTEMI (non-ST elevated myocardial infarction) Aortic valve stenosis, etiology of cardiac valve disease unspecified Ahmad, Taqueria, SURGERY Procedures Discharge Follow-Up: Specialty Service TS-THORACIC SURGERY (CARDIOTHORACIC VASCULAR SURGERY); 2 Weeks (CARDIOTHORACIC [address] [place] [address] VASCULAR SURGERY) [address] [address] (Routine) Status Reason Specialty Diagnoses / Referred By Referred To Procedures Contact Contact New Request IM-INTERVENTIONAL Diagnoses Syncope and collapse NSTEMI (non-ST elevated myocardial infarction) Aortic valve stenosis, etiology of cardiac valve disease unspecified Ahmad, Taqueria, CARDIOLOGY Procedures Discharge Follow-Up: Specialty Service IM-INTERVENTIONAL CARDIOLOGY; [address] [place] [address] (Routine) Status Reason Specialty Diagnoses / Referred By Referred To Procedures Contact Contact New Request IM-ADVANCED HEART Diagnoses Syncope and collapse NSTEMI (non-ST elevated myocardial infarction) Aortic valve stenosis, etiology of cardiac valve disease unspecified Ahmad, Taqueria, FAILURE & Procedures Discharge Follow-Up: Specialty Service IM-ADVANCED HEART FAILURE & TRANSPLANT CARDIOLOGY; 2 Weeks [address]ANSPLANT [address] [place] [address] [place] [address] (Routine) Status Reason Specialty Diagnoses / Referred By Referred To Procedures Contact Contact New Request IM-CARDIOVASCULAR Diagnoses Syncope and collapse NSTEMI (non-ST elevated myocardial infarction) Aortic valve stenosis, etiology of cardiac valve disease unspecified Taqueria Khan, DORINA Procedures Discharge Follow-Up: Specialty Service IM-CARDIOVASCULAR DISEASE; 4-6 Weeks MD [address] [id number] [place] [id number] (Routine) Status Reason Specialty Diagnoses / Referred By Referred To Procedures Contact Contact New Request Diagnoses Syncope and collapse NSTEMI (non-ST elevated myocardial infarction) Aortic valve stenosis, etiology of cardiac valve disease unspecified Taqueria Khan MD Gowda, Jeevan C Procedures Discharge Follow-up: PCP FRANKLIN MELGAR; 3-5 Days [address] [place] [id number] [facility] [id number] [place] [address] Phone: [phone] Phone: Fax: (JACKELINE) Status Reason Specialty Diagnoses / Referred By Referred To Procedures Contact Contact New Request Cardiology Diagnoses Syncope and collapse Taqueria Khan MD Procedures ECHO ROUTINE W/DOPPLER COLOR [address] [facility] [id number] [place] [address] (Routine) Status Reason Specialty Diagnoses / Procedures Referred By Gabrielle eferred To Contact Contact Closed Cardiology Diagnoses Status post balloon aortic valvuloplasty Taqueria Khan MD Procedures ECHO ROUTINE W/DOPPLER COLOR ECHO ROUTINE W/DOPPLER COLOR 301 [facility] [id number] [place] [address] (Routine) Status Reason Specialty Diagnoses / Procedures Referred By Kendell jeffriesact Referred To Contact Closed Cardiology Procedures Taqueria Khan MD Cardiac Cath Request [address] [id number] for Service [place], [place] [address] (Cardiology Use Only) Radiology Services (Routine) Status Reason Specialty Diagnoses / Referred By Referred To Procedures Contact Contact New Request Diagnostic Diagnoses Syncope and collapse Hematemesis without nausea ESRD (end stage renal disease) on dialysis Taqueria Khan, Radiology Procedures US RETROPERITONEAL LIMITED MD [address] [id number] [place] [address] Radiology Services (JACKELINE) Status Reason Specialty Diagnoses / Referred By Referred To Procedures Contact Contact New Request Diagnostic Diagnoses Syncope and collapse Chatila, Khaled Radiology Procedures XR ANKUR Mcclellan MD [address] [place] [address] Radiology Services (Routine) Status Reason Specialty Diagnoses / Referred By Referred To Procedures Contact Contact New Request Diagnostic Diagnoses Thrombocytopenia Chatila, Khaled Radiology Procedures US ABDOMEN BALWINDER Mcclellan MD [address] [place] [address] Radiology Services (JACKELINE) Status Reason Specialty Diagnoses / Referred By Referred To Procedures Contact Contact New Request Diagnostic Diagnoses Syncope and collapse Chatila, Khaled Radiology Procedures XR ANKUR Mcclellan MD [address] [place] [address] (STAT) Status Reason Specialty Diagnoses / Referred By Referred To Procedures Contact Contact New Request Cardiology Diagnoses Syncope and collapse Chatila, Khaled F, Procedures ECHO ROUTINE W/DOPPLER COLOR [address] [place] [address] Radiology Services (STAT) Status Reason Specialty Diagnoses / Referred By Referred To Procedures Contact Contact New Request Diagnostic Diagnoses Syncope and collapse Chatila, Khaled Radiology Procedures XR CHEST 1 VW MD Eleuterio [address] [place], [place] [address] (Routine) Status Reason Specialty Diagnoses / Referred By Referred To Procedures Contact Contact New Request Cardiology Procedures Taqueria Khan MD Cardiac Cath Request [address] for Service [id number] (Cardiology Use [place], [place] Only) [address] (Routine) Status Reason Specialty Diagnoses / Referred By Referred To Procedures Contact Contact New Request Cardiology Diagnoses Syncope and collapse Taqueria Khan MD Procedures Echocardiogram, Routine with Doppler Color [address] [facility] [id number] [place] [address] Radiology Services (Routine) Status Reason Specialty Diagnoses / Referred By Referred To Procedures Contact Contact New Request Diagnostic Diagnoses Syncope and collapse Alberto Ruelas, Radiology Procedures XR CHEST 1 VW DO [address] [facility] [place], [place] [address] [place] [address] Reason for Visit Reason Comments Syncope Auth/Cert Status Reason Specialty Diagnoses / Referred By Referred To Procedures Contact Contact Emergency Medicine [facility] Em ergency Dept [address] [place] [address] Fax: Encounter Details Date Type Department Care Team Description 04/09/2020 - Hospital Cardiology (MICHAEL Alberto Ruelas, DO [address] [facility] [place] [address] [place], [place] [id number] Hematemesis without 04/18/2020 Encounter 9B) Taqueria Khan MD [address] [facility] [id number] [place], [place] [id number] nausea [address] [place] [address] Mere Swain MD [address] [place] [address] [phone] [place], [place] 0[address]375 Allergies No Known Allergiesdocumented as of this encounter (statuses as of 04/18/2020) Medications Medication Sig Dispensed Refills Start End Date Status Date gabapentin 300 mg Take 1 30 capsule 2 06/13/19 A ctive capsuleIndications: capsule by 0 21 Spondylolisthesis at mouth daily L5-S1 level, for 90 Radiculopathy of leg days. furosemide 40 mg Take 40 mg 0 Ac tive tablet by mouth daily. lidocaine-prilocaine Apply 1 0 Active 2.5-2.5 % cream Tube to 0 area(s) as needed for Pain. carvediloL 6.25 mg Take 1 60 tablet 11 A ctive tabletIndications: tablet by 1 Syncope and collapse, mouth 2 NSTEMI (non-ST (two) times elevated myocardial daily with infarction), Aortic meals. valve stenosis, etiology of cardiac valve disease unspecified lisinopriL 5 mg Take 1 90 tablet 3 Acti ve tabletIndications: tablet by 1 Syncope and collapse, mouth NSTEMI (non-ST daily. elevated myocardial infarction), Aortic valve stenosis, etiology of cardiac valve disease unspecified levothyroxine 50 mcg Take 1 90 tablet 3 Active tabletIndications: tablet by 1 Syncope and collapse, mouth every NSTEMI (non-ST morning. elevated myocardial infarction), Aortic valve stenosis, etiology of cardiac valve disease unspecified pantoprazole 40 mg EC Take 1 90 tablet 0 Active tabletIndications: tablet by 1 Syncope and collapse, mouth NSTEMI (non-ST daily. elevated myocardial infarction), Aortic valve stenosis, etiology of cardiac valve disease unspecified aspirin 81 mg chewable Take 1 90 tablet 3 Active tabletIndications: tablet by 1 Syncope and collapse, mouth NSTEMI (non-ST daily. elevated myocardial infarction), Aortic valve stenosis, etiology of cardiac valve disease unspecified atorvastatin 80 mg Take 1 90 tablet 3 A ctive tabletIndications: tablet by 1 Syncope and collapse, mouth at NSTEMI (non-ST bedtime. elevated myocardial infarction), Aortic valve stenosis, etiology of cardiac valve disease unspecified clopidogreL 75 mg Take 1 90 tablet 3 Ac tive tabletIndications: tablet by 1 Syncope and collapse, mouth NSTEMI (non-ST daily. elevated myocardial infarction), Aortic valve stenosis, etiology of cardiac valve disease unspecified cyclobenzaprine 5 mg Take 1 60 tablet 0 04/18/19 Discontinued tabletIndications: tablet by 0 21 Spondylolisthesis at mouth 2 L5-S1 level (two) times daily for 30 days. carvediloL 6.25 mg Take 6.25 0 04/18/19 D iscontinued tablet mg by mouth 21 daily. atorvastatin 20 mg Take 20 mg 0 04/18/19 Discontinued tablet by mouth 21 daily. lisinopriL 2.5 mg Take 2.5 mg 0 04/18/19 Discontinued tablet by mouth 21 daily. aspirin 81 mg chewable Take 81 mg 0 Discontinued tablet by mouth 21 daily. aspirin 81 mg chewable Take 1 90 tablet 3 0 Discontinued tabletIndications: tablet 1 21 ( Reorder) Syncope and collapse, through NSTEMI (non-ST enteral elevated myocardial tube daily. infarction), Aortic valve stenosis, etiology of cardiac valve disease unspecified atorvastatin 80 mg Take 1 90 tablet 3 04/18/19 D iscontinued tabletIndications: tablet 1 21 ( Reorder) Syncope and collapse, through NSTEMI (non-ST enteral elevated myocardial tube at infarction), Aortic bedtime. valve stenosis, etiology of cardiac valve disease unspecified clopidogreL 75 mg Take 1 90 tablet 3 04/18/19 Di scontinued tabletIndications: tablet 1 21 ( Reorder) Syncope and collapse, through NSTEMI (non-ST enteral elevated myocardial tube daily. infarction), Aortic valve stenosis, etiology of cardiac valve disease unspecified documented as of this encounter (statuses as of 04/18/2020) Active Problems Problem Noted Date Syncope and collapse 04/09/2020 Hematemesis without nausea 04/09/2020 Overview: Added automatically from request for festus berman [id number] ESRD (end stage renal disease) on dialysis 03/14/2020 documented as of this encounter (statuses as of 04/18/2020) Immunizations Name Administration Dates Next Due HEP B, Adult Dosage 07/05/2019, 03/03/2019, 02/01/2019, 10/0 11/2018 Influenza Virus Vaccine 12/10/2019, 12/04/2018 PPD (TB) 11/22/2019, 11/23/2018 documented as of this encounter Social History Tobacco Use Types Packs/Day Years Used Date Former Smoker Smokeless Tobacco: Never Used Tobacco Cessation: Counseling Given: No Education Answer Date Recorded What is the [...] with No / Unsure 04/09/2020 12:24 PM CLIENT CARE MANAGER someone who was confirmed or suspected to have Coronavirus / COVID-19? documented as of this encounter Last Filed Vital Signs Vital Sign Reading Time Taken Comments Blood Pressure 149/48 04/18/2020 5:25 PM CLIENT CARE MANAGER Pulse 92 04/18/2020 5:25 PM CLIENT CARE MANAGER Temperature 35.8 C (96.5 F) 04/18/2020 2:49 PM CLIENT CARE MANAGER Respiratory Rate 18 04/18/2020 2:49 PM CLIENT CARE MANAGER Oxygen Saturation 100% 04/18/2020 2:49 PM CLIENT CARE MANAGER Inhaled Oxygen - - Concentration Weight 67 kg (147 lb 9.6 04/18/2020 2:41 actual wt on the oz) AM CLIENT CARE MANAGER regular scale Height 162.6 cm (5' 4") 04/17/2020 11:37 AM CLIENT CARE MANAGER Body Mass Index 25.34 04/17/2020 11:37 AM CLIENT CARE MANAGER documented in this encounter Discharge Instructions Sarita Lizarraga RN - 04/18/2020 Patient Discharge Instructions Take Home Medications These are medications ordered for you by your healthcare provider. Do not take any other medications or supplements unless advised by your healthcare provider. Current Discharge Medication List START taking these medications Details clopidogreL (PLAVIX) 75 mg Take 75 mg by mouth daily. Qty: 90 tablet, Refills: 3 Start date: 04/19/2020 Associated Diagnoses: Syncope and collapse; NSTEMI (non-ST elevated myocardial infarction); Aortic valve stenosis, etiology of cardiac valve disease unspecified levothyroxine (SYNTHROID) 50 mcg Take 50 mcg by mouth every morning. Qty: 90 tablet, Refills: 3 Start date: 04/19/2020 Associated Diagnoses: Syncope and collapse; NSTEMI (non-ST elevated myocardial infarction); Aortic valve stenosis, etiology of cardiac valve disease unspecified pantoprazole (PROTONIX) 40 mg Take 40 mg by mouth daily. Qty: 90 tablet, Refills: 0 Start date: 04/18/2020 Associated Diagnoses: Syncope and collapse; NSTEMI (non-ST elevated myocardial infarction); Aortic valve stenosis, etiology of cardiac valve disease unspecified CONTINUE these medications which have CHANGED Details aspirin 81 mg Take 81 mg by mouth daily. Qty: 90 tablet, Refills: 3 Start date: 04/19/2020 Associated Diagnoses: Syncope and collapse; NSTEMI (non-ST elevated myocardial infarction); Aortic valve stenosis, etiology of cardiac valve disease unspecified atorvastatin (LIPITOR) 80 mg Take 80 mg by mouth at bedtime. Qty: 90 tablet, Refills: 3 Start date: 04/18/2020 Associated Diagnoses: Syncope and collapse; NSTEMI (non-ST elevated myocardial infarction); Aortic valve stenosis, etiology of cardiac valve disease unspecified carvediloL (COREG) 6.25 mg Take 6.25 mg by mouth 2 (two) times daily with meals. Qty: 60 tablet, Refills: 11 Start date: 04/18/2020 Associated Diagnoses: Syncope and collapse; NSTEMI (non-ST elevated myocardial infarction); Aortic valve stenosis, etiology of cardiac valve disease unspecified lisinopriL (PRINIVIL,ZESTRIL) 5 mg Take 5 mg by mouth daily. Qty: 90 tablet, Refills: 3 Start date: 04/19/2020 Associated Diagnoses: Syncope and collapse; NSTEMI (non-ST elevated myocardial infarction); Aortic valve stenosis, etiology of cardiac valve disease unspecified CONTINUE these medications which have NOT CHANGED Details lidocaine-prilocaine (EMLA) 1 Tube Apply 1 Tube to area(s) as needed for Pain. furosemide (LASIX) 40 mg Take 40 mg by mouth daily. gabapentin (NEURONTIN) 300 mg Take 300 mg by mouth daily. Qty: 30 capsule, Refills: 2 Associated Diagnoses: Spondylolisthesis at L5-S1 level; Radiculopathy of leg STOP taking these medications cyclobenzaprine (FLEXERIL) 5 mg Comments: Reason for Stopping: Follow-up appointments: For questions regarding follow-up instructions call the Healthcare Hotline at or If you experience any of the following symptoms , please follow up with . For worsening symptoms/changing condition/problems or questions: Non-emergency/urgent: Call the Healthcare Hotline at or or Emergency: Go to the closest emergency room or call [phone] AttachmentsThe following attachments cannot be sent through Care Everywhere. Clopidogrel tablets (Bahraini)Levothyroxine tablets (Bahraini)Pantoprazole tablets (Bahraini)Syncope, Treating: Helping Your Heart (Bahraini)documented in this encounter Progress Notes Antony Salinas LMSW - 04/18/2020 5:03 PM CLIENT CARE MANAGER Care Management Discharge Disposition Note (DCDN) 5-2-1 Interventions: Follow-up phone calls;Follow-up appointments;Clear discharge plan;Teach back;Intensive medication reconciliation/management 5-2-1 Providers: Physician;Log Truck Driver/Pocket Creaser 5-2-1 Patient Capacity Improvements: Avoidance of adverse events/readmission Discharge Plan for ongoing care and services: Dialysis Patient Choice completed for referred services: Return to previous provider(Akiko Bonilla) Discussed with patient/patients family involved in decision making: Patient or family caregiver understands, and agrees with discharge plan Patient's family or support contact: Discharge Plan: Dialysis Discharge location(s): Dialysis Facility: [address] [address] (P) [phone] (F) [phone] Community resources/referrals made or provided to patient: No Resources/Referrals: Mental Status: Alert & Oriented to Person,Place & Time Psychosocial issues and/or concerns resulting in patient being a high risk for re-admission: (none) Manage ADL indepentdly: Yes Living Arrangement: Home: single story Other living arrangement: Address of living arrangement: (3 or 4 steps leading into the home) [address] [place] [id number] Funding Resources: Medicare Replacement Has patient been referred to [place]/[facility]? No Nursing informed of discharge plan: yes CHP referral sent? No CM medication request completed (if appropriate): N/A PCP: Yes Franklin Melgar Transportation: Private Vehicle(Nadia Freeman-daughter [phone]; Kristi Raines-) Discharge Medications Will the patient be able to obtain his medications? Yes Does the patient have transportation to to obtain the prescription medications? Yes Expected discharge date: 04/18/20 Time: afternoon Name of RN informed: Sarita Additional Information: Discharge summary faxed to [facility]UNDY[facility] Name & Contact number: Antony Salinas LMSW Ph. [phone] The following information has been provided to the facility noted above: reason for the patient discharge or transfer; patients physical and psychosocial status; summary of care, treatment, servicesprovided to patient; and the patient progress toward goals. NT CARE MANAGER Andria San MD - 04/17/2020 8:00 AM CST White Team Progress Note Date of Service: 04/17/2020 08:00 Date of Admission: 04/09/2020 Chief Complaint: Syncope 24-HOUR EVENTS: No acute events overnight Tele: Sinus rhythm, IVCD with HR trends in the 90s. Patient has occasional PVC 1-8/min SUBJECTIVE: Patient was found sitting in his chair. Patient notes he is doing well, denies any chest pain or shortness of breath and note he is ready for procedure today. OBJECTIVE: Vitals: 04/16/20 1618 04/16/20 1924 04/16/20 2329 04/17/20 0515 BP: 121/74 (!) 143/88 135/84 (!) 146/88 BP Location: Right arm Right arm Right arm Right arm Patient Position: Sitting Sitting Sitting Sitting Pulse: 99 101 99 104 Resp: 18 19 18 19 Temp: 36.4 C (97.5 F) 35.9 C (96.7 F) 36.5 C (97.7 F) 36.4 C (97.5 F) TempSrc: Oral Oral Oral Oral SpO2: 100% 100% 99% 100% Weight: 67.8 kg (149 lb 8 oz) Height: Intake/Output Summary (Last 24 hours) at 04/17/2020 0800 Last data filed at 04/16/20202053 Gross per 24 hour Intake 580 ml Output 0 ml Net 580 ml General: Alert; no apparent distress HEENT: EOM intact Lungs: Bibasilar coarse crackles Cardio: RRR, loud systolic murmur heard over right 2nd intercostal space Abdomen: Soft; non-distended; nontender Extremities: No edema LABS/IMAGING - reviewed, pertinent results as below: ASSESSMENT/PLAN Jodi Steve is a 75 year old male admitted to the hospital with: NSTEMI CAD s/p CABG x3 s/p PCI of SVG to (02/2020) Critical Severe Aortic Stenosis c/b syncope Recent cardiac arrest (unknown intial rhythm) vs syncope 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 Patient to undergo LCH today with aortic valvuloplasty. - LHC today - C/w ASA, plavix, lipitor - C/w Protonix IV BID - Renal diet, EKG qAM and PRN chest pain, Telemetry, O2 per protocol - Electrolytes: Keep K >4, Mg>2 - Daily labs: aPTT, PT/INR, BMP, Mag - F/up interventional cardio recs ESRD (on HD: M,W,F) To undergo HD today. Nephro on board for HD needs -Follow up Nephro recs DM HTN HLD Hypothyroidism Patient with elevated BP, will undergo LHC today, will resume home lisinopril afterwards and patientis also scheduled for HD, which should help with blood pressure control. - resume lisinopril after LHC - SSI - levothyroxine 50mcg Resolved: Hematemesis likely- Upper GI Bleed EGD revealed gastritis. PPI IV BID PainControlledTylenol Prophylaxis: DVT-heparin Stress Ulcer:pantoprazole Code Status:addressed:Full Andria San M.D. Department of Internal Medicine, PGY-1 END OF DAILY PROGRESS NOTE HOSPITAL COURSE Jodi Steve is a 75 year old male with a PMH ofESRD on HD (M,W,F),HTN, HLD, DM, and severe CAD with triple vessel disease s/p CABG 2013, REED-LAD patent, presentingto the hospitalafter syncopal episode.Troponin elevated, so ACS treatment initiated (hep gtt). On 04/10, TTE showed critical aortic stenosis, severely dilated LV, global hypokineses, and EF 10-15%. On 04/11, LHC and RHC showed severe pilot point multivessel CAD, but with patent grafts and elevated R and L heart filling pressures. Patient follows closely with OSH clerical adviser, so at the time, plan was to address severe with them. However, following LHC on 04/11, patient developed hematemesis that resolved on its own and Hg remained stable. Then, on 04/12 in hide buyer, patient was seen walking to bathroom and collapsing; no pulse was found, but achieved ROSC after 1 round of CPR without need for shock/epinephrine (unknown initial rhythm). This episode of syncope vs cardiac arrest was attributed to patient's severe . Patient was intubated and transferred to CCU. EGD was done which showed gastritis, likely source ofbleeding. Patient was successfully extubated on 04/13/20 and was transferred to floor. Troponins werenoted to be uptrending, concerning for NSTEMI. Was again started on heparin gtt and planning for repeat LHC + balloon aortic valvuloplasty on 04/17/20, prior to TAVR. CURRENT MEDICATIONS - reviewed. Current Facility-Administered Medications Medication Dose Route Frequency Last Rate Last Admin heparin (porcine) injection 5,000 Units 5,000 Units Subcutaneous Q12H 5,000 Units at 051 aspirin chewable tablet 81 mg 81 mg Enteral DAILY 81 mg at 04/16/20 0900 atorvastatin (LIPITOR) tablet 80 mg 80 mg Enteral QHS 80 mg at 04/16/202050 clopidogreL (PLAVIX) tablet 75 mg 75 mg Enteral DAILY 75 mg at 04/16/20 0901 dextrose 50 % in water (D50W) injection 25 mL 25 mL Slow IV Push PRN pantoprazole (PROTONIX) 40 mg in NaCl 0.9% (NS) 100 mL MINI-BAG 40 mg IV Piggyback Q12H 40 mgat 04/16/202050 glucagon (GLUCAGEN DIAGNOSTIC KIT) injection 1 mg 1 mg Intramuscular PRN levothyroxine (SYNTHROID) tablet 50 mcg 50 mcg Oral QAM-0600 50 mcg at 04/17/20 0534 acetaminophen (TYLENOL) tablet 650 mg 650 mg Oral Q6HPRN 650 mg at 04/11/20 0050 ondansetron (ZOFRAN (PF)) injection 4 mg 4 mg Slow IV Push Q6HPRN 4 mg at 04/16/20 0426 NT CARE MANAGER Associated attestation - Taqueria Khan MD - 04/17/2020 1:49 PM CSTI personally examined the patient on 04/17/[address] San's resident note as written. I actively participated in the decision-making process. Please see the resident's note for additional details. Fatoumata Costa MD - 04/16/2020 7:42 AM CST White Team Progress Note Date of Service: 04/16/2020 07:43 Date of Admission: 04/09/2020 Chief Complaint: Syncope 24-HOUR EVENTS: No acute events overnight SUBJECTIVE: Reports some right lower chest wall aching last night associated with nausea. Resolved on its own and has not recurred since. OBJECTIVE: Vitals: 04/15/20 1753 04/15/20 1933 04/15/20 2331 04/16/20 0522 BP: 135/87 117/46 (!) 140/84 126/77 BP Location: Right arm Right arm Right arm Right arm Patient Position: Sitting Sitting Sitting Supine Pulse: 107 115 101 98 Resp: 18 17 18 17 Temp: 35.8 C (96.4 F) 36.1 C (96.9 F) 36.1 C (97 F) 36.1 C (96.9 F) TempSrc: Oral Oral Oral Oral SpO2: 100% 100% 100% 99% Weight: 68.1 kg (150 lb 3.2 oz) Height: Intake/Output Summary (Last 24 hours) at 04/16/2020 0743 Last data filed at 04/15/2020 1753 Gross per 24 hour Intake 0 ml Output 0 ml Net 0 ml General: Alert; no apparent distress HEENT: EOM intact, moist mucous membranes Lungs: Bibasilar coarse crackles Cardio: RRR, no murmurs Abdomen: Soft; non-distended; nontender Extremities: No edema LABS/IMAGING - reviewed, pertinent results as below: ASSESSMENT/PLAN Jodi Steve is a 75 year old male admitted to the hospital with: NSTEMI CAD s/p CABG x3 s/p PCI of SVG to OM (02/2020) Critical Severe Aortic Stenosis c/b syncope Recent cardiac arrest (unknown intial rhythm) vs syncope 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 Troponin downtrended. Planning for LHC on Friday w/ balloon aortic valvuloplasty. Heparin gtt stopped prematurely on , however after discussion with faculty, given lack of symptoms at this time, will not resume. - NPO PMN for LHC on Friday - C/w ASA, plavix, lipitor - C/w Protonix IV BID - Renal diet, EKG qAM and PRN chest pain, Telemetry, O2 per protocol - Electrolytes: Keep K >4, Mg>2 - Daily labs: aPTT, PT/INR, BMP, Mag - F/up interventional cardio recs ESRD (on HD: M,W,F) - Nephro on board for HD needs DM HTN HLD Hypothyroidism - Holding lisinopril due to soft BP - SSI - levothyroxine 50mcg Resolved: Hematemesis likely- Upper GI Bleed EGD revealed gastritis. PPI IV BID PainControlledTylenol Prophylaxis: DVT-heparin Stress Ulcer:pantoprazole Code Status:addressed:Full Fatoumata Costa MD Internal Medicine, PGY2 [facility] Team Pager number: [phone] END OF DAILY PROGRESS NOTE HOSPITAL COURSE Jodi Steve is a 75 year old male with a PMH ofESRD on HD (M,W,F),HTN, HLD, DM, and severe CAD with triple vessel disease s/p CABG 2013, REED-LAD patent, presentingto the hospitalafter syncopal episode.Troponin elevated, so ACS treatment initiated (hep gtt). On 04/10, TTE showed critical aortic stenosis, severely dilated LV, global hypokineses, and EF 10-15%. On 04/11, LHC and RHC showed severe pilot point multivessel CAD, but with patent grafts and elevated R and L heart filling pressures. Patient follows closely with OS clerical adviser, so at the time, plan was to address severe with them. However, following LHC on 04/11, patient developed hematemesis that resolved on its own and Hg remained stable. Then, on 04/12 in hide buyer, patient was seen walking to bathroom and collapsing; no pulse was found, but achieved ROSC after 1 round of CPR without need for shock/epinephrine (unknown initial rhythm). This episode of syncope vs cardiac arrest was attributed to patient's severe . Patient was intubated and transferred to CCU. EGD was done which showed gastritis, likely source ofbleeding. Patient was successfully extubated on 04/13/20 and was transferred to floor. Troponins werenoted to be uptrending, concerning for NSTEMI. Was again started on heparin gtt and planning for repeat LHC + balloon aortic valvuloplasty on 04/17/20, prior to TAVR. CURRENT MEDICATIONS - reviewed. Current Facility-Administered Medications Medication Dose Route Frequency Last Rate Last Admin heparin (porcine) injection 5,000 Units 5,000 Units Subcutaneous Q12H 5,000 Units at 115 aspirin chewable tablet 81 mg 81 mg Enteral DAILY 81 mg at 04/15/20 0947 atorvastatin (LIPITOR) tablet 80 mg 80 mg Enteral QHS 80 mg at 04/15/202114 clopidogreL (PLAVIX) tablet 75 mg 75 mg Enteral DAILY 75 mg at 04/15/20 0947 dextrose 50 % in water (D50W) injection 25 mL 25 mL Slow IV Push PRN fentaNYL PF (SUBLIMAZE) STD 2,500 mcg in NaCl 0.9% (NS) 250 mL infusion RTU 25-200 mcg/hr IV Infusion TITRATE Stopped at 04/13/20 0800 midazolam (PF) (VERSED) STD 50 mg in NaCl 0.9% (NS) 50 mL infusion RTU 1-10 mg/hr IV Infusion TITRATE Stopped at 04/13/20 0800 pantoprazole (PROTONIX) 40 mg in NaCl 0.9% (NS) 100 mL MINI-BAG 40 mg IV Piggyback Q12H 40 mgat 04/15/202114 glucagon (GLUCAGEN DIAGNOSTIC KIT) injection 1 mg 1 mg Intramuscular PRN levothyroxine (SYNTHROID) tablet 50 mcg 50 mcg Oral QAM-0600 50 mcg at 04/16/20 0607 acetaminophen (TYLENOL) tablet 650 mg 650 mg Oral Q6HPRN 650 mg at 04/11/20 0050 ondansetron (ZOFRAN (PF)) injection 4 mg 4 mg Slow IV Push Q6HPRN 4 mg at 04/16/20 0426 NT CARE MANAGER Associated attestation - Denny Palomino MD - 04/16/2020 12:11 PM CSTI personally examined the patient on 04/16/[address] Costa's note as written. I actively participated in the decision-making process. Andria San MD - 04/15/2020 12:19 PM CST White Team Progress Note Date of Service: 04/15/2020 12:19 Date of Admission: 04/09/2020 Chief Complaint: Syncope 24-HOUR EVENTS: No acute events overnight Tele: Sinus rhythm with RH trends in the 100s, IVCD, some Trigeminy PVC, 3 beats of non sustained Vtach. SUBJECTIVE: Mr. Steve was found sitting in his room in no acute distress. The patient notes he feels a bit nauseous, he notes he threw up once but it was mainly saliva, no blood present. Patient denies any chest pain or shortness of breath. OBJECTIVE: Vitals: 04/14/20 2304 04/15/20 0328 04/15/20 0737 04/15/20 1137 BP: 106/62 113/71 120/83 139/84 BP Location: Right arm Right arm Patient Position: Supine Supine Pulse: 103 104 102 108 Resp: Temp: 36.7 C (98.1 F) 35.8 C (96.4 F) 35.6 C (96 F) TempSrc: Oral SpO2: 95% 98% 100% 100% Weight: Height: Intake/Output Summary (Last 24 hours) at 04/15/2020 1219 Last data filed at 04/14/2020 1544 Gross per 24 hour Intake 240 ml Output Net 240 ml Physical Exam Constitutional: He is oriented to person, place, and time. No distress. Cardiovascular: Normal rate, regular rhythm and normal heart sounds. No murmur heard. Pulmonary/Chest: Effort normal. No respiratory distress. He has rales (crackles heard in bilateral lower lung vital). Abdominal: Soft. Bowel sounds are normal. There is no abdominal tenderness. Neurological: He is alert and oriented to person, place, and time. LABS/IMAGING - reviewed, pertinent results as below: CURRENT MEDICATIONS - reviewed. 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 Plan for LC on Friday to assess for lesions and balloon aortic valvuloplasty. Pending plan for TAVR inpt vs outpt. - Renal diet, EKG qAM and PRN chest pain, Telemetry, O2 per protocol - Electrolytes: Keep K >4, Mg>2 - Daily labs: aPTT, PT/INR, BMP, Mag - Plavix 75mg daily - Asa 81 mg po daily - Lipitor 80 mg po QHS - F/up interventional cardio recs - Plan for LHC on Friday ESRD (on HD: M,W,F) Stable. - Nephro recs: -Daily CBC - Strict I/O, daily weights, renally dose medications, avoid nephrotoxic agents DM HTN HLD Hypothyroidism Stable, will continue to monitor. - lisinopril 2.5 daily - Atorvastatin 80mg - levothyroxine 50mcg Resolved: Hematemesis likely- Upper GI Bleed EGD revealed gastritis. PPI IV BID PainControlledTylenol Prophylaxis: DVT-heparin Stress Ulcer:pantoprazole Code Status:addressed:Full Patient seen and examined with faculty, Dr. GIGI VELÁSQUEZ, DENNY Scales Andria San M.D. Department of Internal Medicine, PGY-1 END OF DAILY PROGRESS NOTE HOSPITAL COURSE Jodi Steve is a 75 year old male with a PMH ofES on HD (M,W,F),HTN, HLD, DM, and severe CAD with triple vessel disease s/p CABG 2013, REED-LAD patent, presentingto the hospitalafter syncopal episode. In the ED labs significant fortroponin of 0.134, Pro-BNP of 194,000, A1c of 5.2, K of 5.2, mg of2.1 and CXR withpulmonary edema, cardiomegaly and left pleural effusion. EKGwith , sinus rhythm with incomplete left bundle branch block, normal intervals otherwise, ST segment depressions in inferolateral leads.Patient was given 500cc bolus of NS fluids andwas transferred to [facility] for further management. At [facility], the patient underwent CHRISTINA which revealed a critical aortic stenosis, severely dilated LV, global hypokinesis, severe eccentric LV hypertrophy with EF of 10-15%. He underwent further workup with LHC and RHC, demonstrating severe pilot point multivessel CAD, patent grafts and elevated right and leftsided filling pressures. Hospital course was complicated by several episodes of hematemesis on 04/11 with stable Hgb. GI consulted. During hide buyer of 04/12, patient was found down, a code was called, ROSC achieved after 1 round of CPR without need for shocks or epinephrine, but was intubated and transferred to CCU for further monitoring. In CCU, EGD showed gastritis, likely source of bleeding, extubated on 04/13/20, stable to be transferred to the floor. Troponins stable but then uptrended, case discussed with interventional cardiology and CT surgery, plan for [facility] on Friday to assess for lesions and balloon aortic valvuloplasty. Pending plan for TAVR inpt vs outpt. CURRENT MEDICATIONS - reviewed. Current Facility-Administered Medications Medication Dose Route Frequency Last Rate Last Admin heparin (porcine) injection 5,000 Units 5,000 Units Subcutaneous Q12H 5,000 Units at aspirin chewable tablet 81 mg 81 mg Enteral DAILY 81 mg at 04/15/20 09 atorvastatin (LIPITOR) tablet 80 mg 80 mg Enteral QHS 80 mg at 04/14/202013 clopidogreL (PLAVIX) tablet 75 mg 75 mg Enteral DAILY 75 mg at 04/15/20 0947 dextrose 50 % in water (D50W) injection 25 mL 25 mL Slow IV Push PRN fentaNYL PF (SUBLIMAZE) STD 2,500 mcg in NaCl 0.9% (NS) 250 mL infusion RTU 25-200 mcg/hr IV Infusion TITRATE Stopped at 04/13/20 0800 midazolam (PF) (VERSED) STD 50 mg in NaCl 0.9% (NS) 50 mL infusion RTU 1-10 mg/hr IV Infusion TITRATE Stopped at 04/13/20 0800 pantoprazole (PROTONIX) 40 mg in NaCl 0.9% (NS) 100 mL MINI-BAG 40 mg IV Piggyback Q12H 40 mgat 04/15/20 0947 glucagon (GLUCAGEN DIAGNOSTIC KIT) injection 1 mg 1 mg Intramuscular PRN levothyroxine (SYNTHROID) tablet 50 mcg 50 mcg Oral QAM-0600 50 mcg at 04/15/20 0547 acetaminophen (TYLENOL) tablet 650 mg 650 mg Oral Q6HPRN 650 mg at 04/11/20 0050 ondansetron (ZOFRAN (PF)) injection 4 mg 4 mg Slow IV Push Q6HPRN 4 mg at 04/11/20 0804 NT CARE MANAGER Associated attestation - Denny Palomino MD - 04/15/2020 3:10 PM CSTI personally examined the patient on 04/15/[address] San's note as written. I actively participated in the decision-making process. Antony Salinas LMSW - 04/14/2020 5:22 PM CLIENT CARE MANAGER Care Management Continued Stay Assessment LOS Day: 5 Estimated /Planned Discharge Date: 04/21/20 Date CM/SW last Face to Face completed with patient/family: 04/10/20 Insurance: Payor: [employer] - MANAGED MEDICARE / Plan: [employer] MEDICARE ERS / Product Type: Medicare AdvPPO / CM/SW Outlined steps taken to assist patient with securing coverage (if applicable): n/a PCP:Franklin Melgar Steps taken to secure PCP : n/a Patient/Family/MPOA/Caregiver Engaged with Transitional Care Plan: yes Patient/Family/MPOA/Caregiver concurs with proposed discharge plan: yes Name, Relationship to Patient and contact number of individual acting on behalf of the patient: patient Date of Last Family Meeting/Multidisciplinary Conference : n/a Anticipated Discharge Destination: Home Patient to resume HD with Akiko Bonilla at discharge. If discharge to home, who will support patient in home: Nadia Freeman-daughter [phone]; Kristi Raines- CM/SW Detailed Interventions/Resources Provided/Completed for Transition in Care Plan : SFA completed and discharge planning initiated. Anticipated durable medical equipment needs: Patient has Cane;Rollator;Shower Chair;glucometer at home Referrals sent: not applicable Has patient been accepted: not applicable Revised plan if not accepted: n/a Date alternate plan discussed with family/patient: n/a What is the clinical care happening right now that must take place in a hospital setting: Plans for LHC and Balloon Valvuloplasty on Friday Antony Salinas LMSW Executive Vp Care Management-Pocket Creaser Indigo Strickland ACNP - 04/14/2020 1:22 PM CST NEPHROLOGY PROGRESS NOTE 04/14/2020 13:23 CC: hematemesis CURRENT MEDICATIONS - reviewed. Current Facility-Administered Medications Medication Dose Route Frequency Last Rate Last Admin heparin (1,000 unit/mL, 10 mL vial) for Rebolusing 3,000 Units Slow IV Push FOR REBOLUSING heparin 25,000 Units/250 mL (Premixed Bag) in 0.45 % NS 12 Units/kg/hr IV Infusion TITRATE lidocaine 1% (PF) (XYLOCAINE) injection 0.3 mL 0.3 mL Infiltration ONCE Stopped at 04/14/20 0815 aspirin chewable tablet 81 mg 81 mg Enteral DAILY 81 mg at 04/13/20 0802 atorvastatin (LIPITOR) tablet 80 mg 80 mg Enteral QHS 80 mg at 04/13/20 214 clopidogreL (PLAVIX) tablet 75 mg 75 mg Enteral DAILY 75 mg at 04/13/20 0802 dextrose 50 % in water (D50W) injection 25 mL 25 mL Slow IV Push PRN fentaNYL PF (SUBLIMAZE) STD 2,500 mcg in NaCl 0.9% (NS) 250 mL infusion RTU 25-200 mcg/hr IV Infusion TITRATE Stopped at 04/13/20 0800 midazolam (PF) (VERSED) STD 50 mg in NaCl 0.9% (NS) 50 mL infusion RTU 1-10 mg/hr IV Infusion TITRATE Stopped at 04/13/20 0800 pantoprazole (PROTONIX) 40 mg in NaCl 0.9% (NS) 100 mL MINI-BAG 40 mg IV Piggyback Q12H 40 mgat 04/13/20 214 glucagon (GLUCAGEN DIAGNOSTIC KIT) injection 1 mg 1 mg Intramuscular PRN levothyroxine (SYNTHROID) tablet 50 mcg 50 mcg Oral QAM-0600 50 mcg at 04/14/20 0516 acetaminophen (TYLENOL) tablet 650 mg 650 mg Oral Q6HPRN 650 mg at 04/11/20 0050 ondansetron (ZOFRAN (PF)) injection 4 mg 4 mg Slow IV Push Q6HPRN 4 mg at 04/11/20 0804 PHYSICAL EXAM BP: (101-155)/(47-94) Temp: [36.1 C (97 F)-37.3 C (99.1 F)] Temp source: Tympanic (04/14 1133) Pulse: [80-117] Resp: [16-18] SpO2: [96 %-100 %] Height: -- Weight: [68.5 kg (151 lb 0.2 oz)-69 kg (152 lb 1.9 oz)] BMI (calculated): [25.52-25.71] Intake/Output Summary (Last 24 hours) at 04/14/2020 1323 Last data filed at 04/14/2020 1134 Gross per 24 hour Intake 120 ml Output 500 ml Net -380 ml Wt Readings from Last 3 Encounters: 04/14/20 68.5 kg (151 lb 0.2 oz) 03/14/20 71.7 kg (158 lb) General: no acute distress and alert ENT: pharynx normal Cardiovascular: Heart regular, rate, rhythm, +systolic murmurs; ++ edema Respiratory: clear to auscultation, no respiratory distress GI: abd soft, non-tender, non-distended, +BS Skin: intact and warm, dry AVF/AVG :L AVF LABS/IMAGING - reviewed, pertinent results as below: Cell count Recent Labs 04/12/20 0022 04/12/20 0331 04/12/208 04/12/20204204/14/20 0534 WBC 3.96* 6.00 5.75 6.27 7.82 HGB 7.9* 8.3* 7.8* 8.9* 8.2* MCV 99.6* 102.0* 102.1* 96.6* 102.4* PLT 118* 128* 117* 120* 143* Chemistry Recent Labs 04/12/20 0330 04/12/20 0448 04/12/20204204/13/20 0357 04/13/206 04/14/20 0534 NA 136 133* 136 134* 137 137 K 4.2 4.6 3.2* 4.4 4.6 4.5 CL 100 99 98 101 99 99 TCO2 22* 23 29 29 25 24 CREAT 4.76* 5.31* 2.07* 3.39* 5.20* 5.76* GLU 84 144* 93 88 173* 135* PHOS -- 4.7 -- -- -- -- MG 2.1 2.0 1.9 1.9 2.2 2.2 CA 8.5* 8.7 9.9 9.3 9.2 9.3 Coagulation Profile Recent Labs 04/12/20 0330 04/12/20 0448 04/14/20 0534 PTPAT 13.4* 14.0* -- PTINR 1.2 1.2 -- APTTPAT -- 25* 29 LFTs Recent Labs 04/12/20 0448 AST 36 ALT 33 ALKPHOS 62 BILIT 0.9 BILICONJ 0.0 BILIUNCON 0.4 Arterial Blood Gas Recent Labs 04/12/20 0329 04/12/20 0506 04/12/20 1001 04/12/20 2043 04/13/20 0357 ACPH 7.11* 7.49* 7.56* 7.56* 7.55* ACPCO2 73* 29* 23* 29* 29* ACPO2 369* 266* 103* 132* 143* ACHCO3 23 21* 21* 26 25 ACNA 135 132* 132* 135 134* ACK 5.4* 4.5 4.4 3.1* 4.4 ACCAIONZ 5.20 4.40* 4.40* 4.90 4.60 ACBE -7.2* -1.6 -0.9 3.7* 2.6 Urinalysis No results for input(s): UPROTEIN, UGLUCOSE, UKETONES, UBILI, UBLOOD, UUROBILIN, ULEUKEST, UNITRITE,USPGRAV in the last 72 hours. No results for input(s): CK in the last 72 hours. No results found for: VANCOT PTH-INTACT (pg/mL) Date Value 04/10/2020 65.6 No results found for: FERRITIN % FE SAT Date Value Ref Range Status 04/10/2020 22 20 - 50 % Final ASSESSMENT/PLAN: ESRD on hemodialysis (primary encounter diagnosis) Comment: MWF, gentle volume removal Plan: HD today and renally dose medications. AV severe stenosis Preload dependent, no more than one liter of UF removal with HD, syncopal episode in the past. Friday planning on TAVR, then reevaluate for HD Hematemesis EGD completed no GI bleed Treated with medical management by GI Secondary hyperparathyroidism (of renal origin) Plan: No binders at this time, has been NPO for multiple procedure, once he is eating can start sevelamer 1 tab with meals Anemia in chronic kidney disease Comment: HGB low Plan: Retacrit for HGB < 10. Nutritional assessment Plan: Follow renal diet Vascular access for dialysis for ESRD Plan: L AVF use for HD Patient seen, examined and discussed with attending turning sander operator Dr Debbie Chun, MSN, RN, ACNP-C Department of Nephrology Nurse Practitioner Office [phone] NT CARE MANAGER Associated attestation - Karl Lewis MD - 04/14/2020 4:54 PM CSTRise in trop and cardiac events noted. Gentle UF I have personally seen and examined this patient on hemodialysis with TREVER Chun on 04/14/2020. I have reviewed the assessment and plan as outlined in the progress note and agree with the overall approach to this patient. I personally participated in the decision-making process as relates to this patient's medical condition. Please refer to TREVER Chun's progress note for details of the medical care provided. Quique Disla MD - 04/14/2020 9:13 AM CSTInterventional Cardiology Consult note Referring Dr Khan I was asked to see the patient by primary cardiology team for evaluation of Severe aortic valve stenosis/CAD. Pt was seen and examined while in the dialysis area. 75 year-old male with h/oESRD on HD (M,W,F last session on Friday),HTN, HLD, DM II, CAD disease s/p CABG (2014 off pump x4) admitted to [facility] for syncope/NSTEMI/acute systolic CHF pulmonary edema on 04/09/20. Pt c/o severe worsening exertional fatigue/dizziness/presyncope for past few weeks. Underwent R/LHC 04/11/20 showed patent REED to mLAD, patent SVg to OM1, patent SVG Y graft to RPDA and RPLB (severe p-mLAD stenosis, severe pLcx stenosis, patent RI, SURFACE TO [employer] WE[employer] OFFICER of the dRCA). ECHO 04/12/20: showed moderately dialted LV, LVEF 15-20%, severe thick AV MG 40 OMAR 0.7, pulm HTN. EKG 04/12/20; normal sinus rhythm, LVH, diffuse ST T changes, IVCD. During hide buyer of 04/12/20,patient collapsed while walking to bathroom , no pulse found, a code was called, ROSC achieved after 1 round of CPR without need for shocks or epinephrine, Transfer to CCU for further monitoring, due to hematemesis patient underwent EGD 04/12/20 that showed no active bleeding and some gastritis treated medically. Patient is stable now and denies CP/SOB at rest. Pt denies CVA/Sz/DVT/PE. Labs show rising troponin. After detailed d/w patient/CTS/primary cardiology teamwill recommend plan for LHC/+-PCI/+-BAV on Friday in [place]. Risks benefits and alternatives d/w patient and he understands and agrees. Continue ASA/plavix daily. Heparin anticoagulation for 48 hoursfor NSTEMI. Andria London MD - 04/14/2020 7:53 AM CST White Team Progress Note Date of Service: 04/14/2020 07:54 Date of Admission: 04/09/2020 Chief Complaint: Syncope 24-HOUR EVENTS: No acute events overnight Tele: Sinus Tachy with HR trends in the 90-100s, IVCD, PVCS throughout night 1-3/min. SUBJECTIVE: Mr. Steve was found walking around his room in no acute distress. The patient notes he is doingokay, but has some pain on throat and notes his voice is different. OBJECTIVE: Vitals: 04/14/20 0019 04/14/20 0514 04/14/20 0729 04/14/20 0730 BP: 138/62 101/47 (!) 144/87 (!) 144/94 BP Location: Right leg Pulse: 101 96 97 98 Resp: 18 Temp: 36.3 C (97.3 F) 36.1 C (97 F) 36.1 C (97 F) TempSrc: Oral Oral Oral SpO2: 96% 96% 100% 97% Weight: Height: Intake/Output Summary (Last 24 hours) at 04/14/2020 0759 Last data filed at 04/13/2020 1900 Gross per 24 hour Intake 120 ml Output 0 ml Net 120 ml Physical Exam Constitutional: He is oriented to person, place, and time. No distress. Cardiovascular: Normal rate, regular rhythm and normal heart sounds. No murmur heard. Pulmonary/Chest: Effort normal. No respiratory distress. He has rales (crackles heard in bilateral lower lung vital). Abdominal: Soft. Bowel sounds are normal. There is no abdominal tenderness. Neurological: He is alert and oriented to person, place, and time. LABS/IMAGING - reviewed, pertinent results as below: CURRENT MEDICATIONS - reviewed. ASSESSMENT/PLAN Jodi Steve is a 75 year old male admitted to the hospital with: Ischemia with evidence of NSTEMI Cardiac arrest (unknown intial rhythm) vs syncope Chronic combined HFrEF 20-25%, ICM and/or induced Syncopal episodes CAD s/p CABG x3 s/p PCI of SVG to OM (02/2020) Critical Severe Aortic Stenosis Patient has remained HD stable with multiple episodes of tachycardia overnight. Overnight troponin checked resulted elevated, we discussed with interventional team regarding aortic valve intervention, plan for [facility] on Friday to assess for lesions and balloon aortic valvuloplasty. Pending plan for TAVR inpt vs outpt. - Renal diet, EKG qAM and PRN chest pain, Telemetry, O2 per protocol - Electrolytes: Keep K >4, Mg>2 - Daily labs: aPTT, PT/INR, BMP, Mag - Plavix 75mg daily - Asa 81 mg po daily - Lipitor 80 mg po QHS - F/up interventional cardio recs - Plan for LHC on Friday ESRD (on HD: M,W,F) Patient to undergo gentle dialysis today. - Nephro recs: -Daily CBC - Strict I/O, daily weights, renally dose medications, avoid nephrotoxic agents DM HTN HLD Hypothyroidism Stable, will continue to monitor. - lisinopril 2.5 daily - Atorvastatin 80mg - levothyroxine 50mcg Resolved: Hematemesis likely- Upper GI Bleed EGD revealed gastritis. PPI IV BID PainControlledTylenol Prophylaxis: DVT-heparin Stress Ulcer:pantoprazole Code Status:addressed:Full Patient seen and examined with faculty, Dr. AMELIA VELÁSQUEZ, TAQUERIA Andria San M.D. Department of Internal Medicine, PGY-1 END OF DAILY PROGRESS NOTE HOSPITAL COURSE Jodi Steve is a 75 year old malewith PMH of triple vessel CAD s/p CABG 2013, REED-LAD patent, SVG-OM patent, SVG-PDA-PLB with moderate disease, ESRD MWF, HTN, DM, HLD who is admitted for syncope, found to have Symptomatic critical , 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 In CCU, EGD showed gastritis, likely source of bleeding, extubated the next day, stable to be transferred to the floor, plan for aortic valve intervention is to be discussed. CURRENT MEDICATIONS - reviewed. Current Facility-Administered Medications Medication Dose Route Frequency Last Rate Last Admin aspirin chewable tablet 81 mg 81 mg Enteral DAILY 81 mg at 04/13/20 0802 atorvastatin (LIPITOR) tablet 80 mg 80 mg Enteral QHS 80 mg at 04/13/20 2143 clopidogreL (PLAVIX) tablet 75 mg 75 mg Enteral DAILY 75 mg at 04/13/20 0802 dextrose 50 % in water (D50W) injection 25 mL 25 mL Slow IV Push PRN fentaNYL PF (SUBLIMAZE) STD 2,500 mcg in NaCl 0.9% (NS) 250 mL infusion RTU 25-200 mcg/hr IV Infusion TITRATE Stopped at 04/13/20 0800 midazolam (PF) (VERSED) STD 50 mg in NaCl 0.9% (NS) 50 mL infusion RTU 1-10 mg/hr IV Infusion TITRATE Stopped at 04/13/20 0800 pantoprazole (PROTONIX) 40 mg in NaCl 0.9% (NS) 100 mL MINI-BAG 40 mg IV Piggyback Q12H 40 mgat 04/13/20 2143 dextrose 50 % in water (D50W) injection 25 mL 25 mL Slow IV Push PRN glucagon (GLUCAGEN DIAGNOSTIC KIT) injection 1 mg 1 mg Intramuscular PRN levothyroxine (SYNTHROID) tablet 50 mcg 50 mcg Oral QAM-0600 50 mcg at 04/14/20 0516 acetaminophen (TYLENOL) tablet 650 mg 650 mg Oral Q6HPRN 650 mg at 04/11/20 0050 glucagon (GLUCAGEN DIAGNOSTIC KIT) injection 1 mg 1 mg Intramuscular PRN ondansetron (ZOFRAN (PF)) injection 4 mg 4 mg Slow IV Push Q6HPRN 4 mg at 04/11/20 0804 NT CARE MANAGER Associated attestation - Taqueria Khan MD - 04/14/2020 1:23 PM CSTI personally examined the patient on 04/14/[address] San's resident note as written . I actively participated in the decision-making process. Please see the resident's note for additional details. Lisandro Delvalle MD - 04/13/2020 1:34 PM CSTBrief Gastroenterology and Hepatology Progress Note Date of Service: 04/13/20 Patient doing well today, extubated. Discussed EGD findings with him, daughter and son-in-law. EGD 04/12/20 - Normal upper third of esophagus, middle third of esophagus and lower third of esophagus. - Gastritis. - Normal first portion of the duodenum and second portion of the duodenum. - No specimens collected. Recommendations: - diet as tolerated - no need for PPI infusion, can do pantoprazole 40 mg IV BID, transition to PO on discharge - follow up US Abdomen, if evidence of cirrhosis please arrange for outpatient GI follow up - GI to sign off at this time, please call with questions Patient was discussed with Dr. Vargas. Lisandro Delvalle MD PGY-4 Gastroenterology and Hepatology Contact Information Available on [facility] NT CARE MANAGER Fatoumata Costa MD - 04/13/2020 12:48 PM CST White Team Progress Note Date of Service: 04/13/2020 12:49 Chief Complaint: Chief Complaint Patient presents with Syncope 24-HOUR EVENTS: Extubated SUBJECTIVE: Feels well, denies CP, SOB. PHYSICAL EXAM: Temp: [36.6 C (97.9 F)-37.2 C (99 F)] Heart Rate (monitor): [72-120] Pulse: [37-121] Resp: [7-24] BP: (86-188)/(41-66) Arterial Line BP: (90-138)/(39-65) MAP (mmHg): [57-89] MAP: [55 mmHg-92 mmHg] Intake/Output Summary (Last 24 hours) at 04/13/2020 1249 Last data filed at 04/13/2020 0500 Gross per 24 hour Intake 868.8 ml Output 3000 ml Net -2131.2 ml General: A&O x 4; no apparent distress HEENT: EOM intact, moist mucous membranes Lungs: CTAB Cardio: RRR, MARILYN Abdomen: Soft; non-distended; nontender Extremities: No edema LABS/IMAGING - reviewed ASSESSMENT/PLAN Jodi Steve is a 75 year old male with PMH as listed above, admitted to the hospital with: Symptomatic critical Cardiac arrest (unknown initial rhythm) vs syncope 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 In CCU, EGD showed gastritis, likely source of bleeding extubated the next day, stable to be transferredto the floor, plan for aortic valve intervention is to be discussed - discuss with interventional team regarding aortic valve intervention - c/w aspirin, plavix, statin - c/w PPI IV q12h - keep Hgb > 8 PAIN: Controlled Tylenol Prophylaxis: DVT- Contraindicated: Cranial/GI Bleeding or other Hemorrhage present Stress Ulcer: pantoprazole Code Status: addressed: Full Fatoumata Costa MD Internal Medicine, PGY2 [facility] Team Pager number: [phone] END OF DAILY PROGRESS NOTE Hospital Course Jodi Steve is a 75 year old male with PMH of triple vessel CAD s/p CABG 2013, REED-LAD patent, SVG-OM patent, SVG-PDA-PLB with moderate disease, ESRD MWF, HTN, DM, HLD who is admitted for syncope, found to have Symptomatic critical , 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 In CCU, EGD showed gastritis, likely source of bleeding, extubated the next day, stable to be transferred to the floor, plan for aortic valve intervention is to be discussed. CURRENT MEDICATIONS - reviewed. NT CARE MANAGER Associated attestation - Taqueria Khan MD - 04/15/2020 11:02 AM CSTI personally examined the patient on 04/13/[address] Costa's resident note as written . I actively participated in the decision-making process. Please see the resident's note foradditional details. Loulou Saravia - 04/13/2020 11:50 AM CST MEDICAL NUTRITION THERAPY NOTE Chief Complaint: Cardiac arrest Reason for encounter: Intubated x2 days. Extubated today 04/13 NUTRITION ASSESSMENT: I have reviewed the comprehensive progress notes dated today as well as additional physician and allied health provider notes and EPIC information for an understanding of the patient's current medical condition and plans for further treatment and care. Per Dr. Markham's note on 04/12, Jodi Steve is a 75 year old male with a PMH ofESRD onHD (M,W,F last session on Friday),HTN, HLD, DM, and severe CAD disease s/p CABG (2013) presentingto the hospitalafter syncopal episode.Patient notes that for the past 2 weeks he has been experiencing increased fatigue with activities of daily living and experiencing syncopal episodes. In the ED labs significant fortroponin of 0.134, Pro-BNP of 194,000, A1c of 5.2, K of 5.2, mg of 2.1 and CXR withpulmonary edema, cardiomegaly and left pleural effusion. EKGwith [id number], sinus rhythm with incomplete left bundle branch block, normal intervals otherwise, ST segment depressions in inferolateral leads.Patient was given 500cc bolus of NS fluids andwas transferred to [facility] for further management. At [facility], the patient underwent CHRISTINA which revealed a critical aortic stenosis, severelydilated LV, global hypokinesis, severe eccentric LV hypertrophy with EF of 10-15%. He will undergo LHC and RHC to assess need of revascularization.During hide buyer of 04/12, patient collapsed while walking to bathroom , no pulse found , a code was called, ROSC achieved after 1 round of CPR without need for shocks or epinephrine. Transfer to CCU for further monitoring Food/Nutrition-Related History: Patient reports no N/V/D/C. No abdominal pain. No chewing or swallowing difficulties. Patients is very hungry and would like to eat soon. Patient is agreeable to receiveONS supplementation whenever his po intake resumes. Patient does not remember his LBM, but believes it was 2-3 days ago. At home, he follows a regular diet 3x/day. Patient reports that he has diabetes,but looked unsure if it was Type I or II. GI and Nutrition Related Findings: Nausea (-) Vomiting (+ Hematemesis (04/11)) Constipation (-) Diarrhea (-) Abdominal Pain (-) Difficulty: Chewing (-) Swallowing (-) intubated 04/12-04/13. Extubated today. GI tract alteration (-) (e.g., h/o bariatric surgery, ostomy, resection, etc.) Alternative means of nutrition (-) (e.g., PEG/PEJ, TPN, DHT, etc.) PO intake: NPO status day 3. Patient consumed 50-60% of documented meals (04/09- 04/10) per flowsheet information. +BM 04/08 per EMR UOP anuric Last HD 04/12, UF 3,000 mL (2K Bath) General: Edema (+ Trace MILTON leg) Ascites (-) Para or Quadriplegia (-) Amputation (-) Wounds (-) Trauma/Surgical Incisions (-) Diabetes (+) Food Assistance (-) Home Provider (-) Pertinent Medications: Noted. Includes: Lipitor, plavix, Heparin, Synthroid, Versed (04/12), Protonix, IV Fentanyl (04/11 x3), KCL 40 mEq (04/12,04/13), Xylocaine (04/11) Home medications: Lisinopril Labs and Medical Test Results: 04/12/2020 04:48 04/12/2020 20:43 04/13/2020 03:57 NA 133 (L) 136 134 (L) K 4.6 3.2 (L) 4.4 CL 99 98 101 CO2 TOTAL 23 29 29 AGAP 11 9 4 BUN 49 (H) 14 22 GLUCOSE 144 (H) 93 88 CREATININE 5.31 (H) 2.07 (H) 3.39 (H) eGFR CALCULATION (non ) 10.6 31.4 17.8 TOTAL BILI 0.9 BILI UNCON 0.4 BILI CONJ 0.0 CALCIUM 8.7 9.9 9.3 PHOSPHORUS 4.7 MAGNESIUM 2.0 1.9 1.9 T PROTEIN 5.7 (L) ALBUMIN 3.2 (L) TROPONIN I 0.451 (H) 0.356 (H) 04/12/2020 04:48 04/12/2020 20:43 HGB 7.8 (L) 8.9 (L) HCT 23.8 (L) 25.8 (L) MCV 102.1 (H) 96.6 (H) 04/10/2020 05:05 IRON 59 HGB A1C (%) Date Value 04/09/2020 5.2 Corrected Ca: 9.94 mg/dl (WNL) Current Diet Order(s): (04/12) NPO Documented Food Allergies/Intolerance/Cultural Preferences: NKFA Anthropometrics: Height: 5'4.5" Weight: 151 lbs (68.5 kg) Body mass index is 25.52 kg/m. IBW: 147 lbs (67 kg) at BMI 24.9 kg/m^2 %IBW: 103% UBW: unknown Admit Weight: 158 lbs (71.7 kg) Wt Readings from Last 6 Encounters: 04/12/20 68.5 kg (151 lb 0.2 oz) 03/14/20 71.7 kg (158 lb) Estimated Needs: based on current weight 151 lbs (68.5 kg). Calories: 2445-3019 kcal/day (28-30 kcal/kg) Protein: 69 - 82 g protein/day (1.0 - 1.2 g protein/kg) ESRD on HD Fluids: ~1000 mL/day or per MD discretion (for hydration maintenance when euvolemic, adjust rec'd goal per pt acute needs) NUTRITION DIAGNOSIS: Inadequate oral intake related to previous intubation as evidenced by NPO status day 3. NUTRITION INTERVENTIONS: 1) Keep NPO with active GI bleed. When medically appropriate, recommend 2000 Mohit Diabetic, 2.5g K diet 2) If po intake <75% of meals, recommend Ensure Enlive BID. 3) Recommend bowel regimen- LBM 04/08 per chart review 4) Monitor phosphorus level and initiate binders if indicated once patient tolerating PO. Goal(s): 1) The patient will be able to consume 75% of all meals without any intolerances during this admission. MONITORING/EVALUATION: - RD to continue following with Nephrology team to review pt's progress, report nutrition related information, and to revise the recommended nutrition intervention(s) if necessary; please call with questions or concerns - Discharge planning in process Anticipated Discharge Needs: None identified at this time. Loulou Bruno Supervisor [employer] Pager: [phone] NT CARE MANAGER Associated attestation - Mariposa Bauer - 04/13/2020 4:35 PM CSTI have reviewed the nutrition care plan for Jodi Steve, and I agree with Loulou Munoz's note as written. I actively participated in the plan of care. Mariposa Bauer, MS, RD, BROADCAST TRANSMITTER OPERATOR, LD Nephrology Dietitian Pager: [phone] Barone MD - 04/13/2020 11:08 AM CSTCCU progress / transfer note 04/13/2020 11:09 Past 24 hrs: - extubated Subjective: Denies chest pain, sob Physical exam: Temp: [36.6 C (97.9 F)-37.2 C (99 F)] Heart Rate (monitor): [64-120] Pulse: [37-120] Resp: [7-24] BP: (86-188)/(41-66) Arterial Line BP: (90-136)/(37-62) MAP (mmHg): [57-89] MAP: [55 mmHg-89 mmHg] General: ao x 3 Lungs: CTAB Cardio: RRR, 4/6 RUSB systolic murmur radiates to carotids Abdomen: soft; non-tender; non-distended; normoactive bowel sounds Extremities: no edema Assessment/plan: Jodi Steve is a 75 year old male who is admitted to the hospital with: Symptomatic critical Cardiac arrest (unknown initial rhythm) vs syncope 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 In CCU, EGD showed gastritis, likely source of bleeding extubated the next day, stable to be transferredto the floor, plan for aortic valve intervention is to be discussed - transfer back to [facility] team - discuss with interventional team regarding aortic valve intervention - c/w aspirin, plavix, statin - c/w PPI IV q12h - keep Hgb > 8 Patient was seen with faculty Dr. 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 In CCU, EGD showed gastritis, likely source of bleeding, extubated the next day, stable to be transferred to the floor, plan for aortic valve intervention is to be discussed NT CARE MANAGER Associated attestation - Mere Swain MD - 04/13/2020 11:34 PM CSTSeen, examined and discussed with team during rounds. Agree with Resident's Findings, assessment andplan EGD revealed gastritis Plan to extubate and discuss with interventional / CT surgery for aortic valve intervention this admissionPatrick Markham MBBS - 04/13/2020 1:29 AM CSTFor coding NSTEMI, type 2, 2/2 Demand Ischemia Trent Mejia MD - 04/12/2020 3:39 AM CST White Team Progress / Transfer Note Date of Service: 04/12/2020 03:39 Date of Admission: 04/09/2020 Chief Complaint: Syncopal episode 24-HOUR EVENTS: Patient was found down by nursing staff early this morning around 3am after patient had gone to the bathroom. No pulse was detected and a code was called. ROSC achieved after 1 round of CPR. No shocks or epinephrine delivered. Transfer to CCU. HOSPITAL COURSE Jodi Steve is a 75 year old male with a PMH of ESRD on HD (M,W,F last session on Friday),HTN, HLD, DM, and severe CAD disease s/p CABG (2013) presenting to the hospital after syncopal episode. Patient notes that for the past 2 weeks he has been experiencing increased fatigue with activities of daily living and experiencing syncopal episodes. In the ED labs significant for troponin of 0.134, Pro-BNP of 194,000, A1c of 5.2, K of 5.2, mg of 2.1 and CXR with pulmonary edema, cardiomegaly and left pleural effusion. EKG with rate of 98, sinus rhythm with incomplete left bundle branch block, normal intervals otherwise, ST segment depressions in inferolateral leads. Patient was given 500cc bolus of NS fluids and was transferred to [facility] for further management. At [facility], the patient underwent CHRISTINA which revealed a critical aortic stenosis, severely dilated LV, global hypokinesis, severe eccentric LV hypertrophy with EF of 10-15%. He underwent further workup with LHC and RHC, demonstrating severe pilot point multivessel CAD, patent grafts and elevated right and left sided filling pressures. Hospital course was complicated by several episodes of hematemesis on 04/11 with stable Hgb. GI consulted. During hide buyer of 04/12, patient was found down, a code was called, ROSC achieved after 1 round ofCPR without need for shocks or epinephrine. Transfer to CCU for further monitoring. OBJECTIVE: Vitals: 04/11/20 1353 04/11/20 1720 04/11/20 1947 04/12/20 0003 BP: 119/70 (!) 140/85 108/69 103/64 BP Location: Left arm Right arm Right arm Right arm Patient Position: Supine Supine Sitting Supine Pulse: 100 97 103 92 Resp: 18 17 17 Temp: 36.3 C (97.3 F) 36.1 C (96.9 F) 35.7 C (96.2 F) TempSrc: Oral Oral Oral SpO2: 95% 94% 97% Weight: Height: Intake/Output Summary (Last 24 hours) at 04/12/2020 0339 Last data filed at 04/11/20202004 Gross per 24 hour Intake 300 ml Output 0 ml Net 300 ml LABS/IMAGING - reviewed, pertinent results as below: 04/10/2020: Transthoracic echocardiogram The study was technically adequate. Contrast injection was performed. There is no comparison study available. The left ventricle is severely dilated. There is no thrombus. Ejection Fraction = 10-15%. Left ventricular filling pressure is elevated. There is severe global hypokinesis of the left ventricle. Severe eccentric left ventricular hypertrophy. LV mass index is 211 g/m2. The left atrium is severely dilated. This is consistent with critical aortic stenosis. There is mild tricuspid regurgitation. There is moderate pulmonary hypertension. The right ventricle is moderately dilated. The right ventricular systolic function is moderately reduced. CURRENT MEDICATIONS - reviewed. ASSESSMENT/PLAN Jodi Steve is a 75 year old male admitted to the hospital with: Syncopal episodes CAD s/p CABG x3 s/p PCI of SVG to (02/2020) Critical Severe Aortic Stenosis Patient had previously remained hemodynamically stable, patient had been mildly tachycardic with HR trends in the 80-100s. Patient underwent CHRISTINA which revealed a critical aortic stenosis, severely dilated LV, global hypokinesis, severe eccentric LV hypertrophy with EF of 10-15%. He will undergo LHC and RHC to assess need of revascularization. - Renal diet, EKG qAM and PRN chest pain, Telemetry, O2 per protocol - Electrolytes: Keep K >4, Mg>2 - Daily labs: aPTT, PT/INR, BMP, Mag - Stop heparin drip - Plavix 75mg daily - Asa 81 mg po daily - Lipitor 80 mg po QHS Hematemesis likely- Upper GI Bleed Patient has one episode of hematemesis hide buyer, while taking medications. Patient then taken to [facility] and post procedure patient had episodes of hematemesis X3. GI was consulted for possible endoscopy, while inpatient. Heparin drip was discontinued. Patient will be typed and screened, already consented for blood products and placed in chart. - H&H q6h, keep hbg>7 transfuse if needed - 2 large bore IV's - Type and screen- consented for blood products. - Protonix drip - Call GI fellow if overt bleeding - check INR and if >1.5 give vitamin K 10 mg IV - check fibrinogen and if <150 give cryoprecipitate - give platelets if <50 From cardiology stand point patient will be moderate to high risk for major adverse cardiovascular events perioperitevily given underlying severe aortic valve stenosis ESRD (on HD: M,W,F) Last HD session on Friday, baseline creatinine unknown. Nephrology following. - Nephro recs: -iron panel -daily CBC -phos, Ca, Albumin , PTH and Vit D level - Strict I/O, daily weights, renally dose medications, avoid nephrotoxic agents DM HTN HLD Hypothyroidism Last A1c 5.2, will continue to monitor. Patient on PUJA, will go ahead and continue home medication and start patient on high intensity statin. Patient noted to have TSH of 90 and low levels of T4, he was started on small dose of levothyroxine yesterday. Will continue to monitor glucose levels, SSI once needed. - lisinopril 2.5 daily - Atorvastatin 80mg - levothyroxine 50mcg Pain ControlledTylenol Prophylaxis: DVT- heparin Stress Ulcer: pantoprazole Code Status: addressed: Full Tretn Sheehan MD Department of Internal Medicine PGY-1, [place] Team Doctor's Number: [id number] END OF DAILY PROGRESS NOTE CURRENT MEDICATIONS - reviewed. Current Facility-Administered Medications Medication Dose Route Frequency Last Rate Last Admin clopidogreL (PLAVIX) tablet 75 mg 75 mg Oral DAILY 75 mg at 04/11/20 1658 dextrose 50 % in water (D50W) injection 25 mL 25 mL Slow IV Push PRN glucagon (GLUCAGEN DIAGNOSTIC KIT) injection 1 mg 1 mg Intramuscular PRN pantoprazole (PROTONIX) 80 mg in NaCl 0.9% (NS) 500 mL infusion 8 mg/hr IV Infusion CONTINUOUS 50 mL/hr at 04/12/20 0259 8 mg/hr at 04/12/20 0259 levothyroxine (SYNTHROID) tablet 50 mcg 50 mcg Oral QAM-0600 50 mcg at 04/11/20 0520 acetaminophen (TYLENOL) tablet 650 mg 650 mg Oral Q6HPRN 650 mg at 04/11/20 0050 aspirin chewable tablet 81 mg 81 mg Oral DAILY 81 mg at 04/11/20 0758 atorvastatin (LIPITOR) tablet 80 mg 80 mg Oral QHS 80 mg at 04/11/202004 dextrose 50 % in water (D50W) injection 25 mL 25 mL Slow IV Push PRN glucagon (GLUCAGEN DIAGNOSTIC KIT) injection 1 mg 1 mg Intramuscular PRN ondansetron (ZOFRAN (PF)) injection 4 mg 4 mg Slow IV Push Q6HPRN 4 mg at 04/11/20 0804 NT CARE MANAGER Associated attestation - Taqueria Khan MD - 04/13/2020 2:02 PM CSTI personally discussed the patient on 04/12/[address] Sheehan's resident note as written . I actively participated in the decision-making process. Please see the resident's note for additional details. Andria San MD - 04/11/2020 7:01 AM CST White Team Progress Note Date of Service: 04/11/2020 08:58 Date of Admission: 04/09/2020 Chief Complaint: Syncopal episode 24-HOUR EVENTS: No acute events overnight Tele: Sinus tachy 104 with IVCD, tachy into the 120s earlier in the morning, but generally trending in the 60-80s. SUBJECTIVE: Mr. Jimenez was found walking around in his room. The patient notes he was having some leg pain, took some Tylenol and because nauseous. He threw up and noted some blood in vomitus. Patient notes this is the first time some thing like this has happened to him. Patient denies any chest pain or shortness of breath. OBJECTIVE: Vitals: 04/10/20 1908 04/10/20 2353 04/11/20 0522 04/11/20 0832 BP: 121/70 116/68 127/78 126/81 BP Location: Right arm Right arm Right arm Right arm Patient Position: Supine Sitting Sitting Supine Pulse: 101 98 99 106 Resp: 17 16 16 20 Temp: 37.3 C (99.1 F) 36.3 C (97.3 F) 35.9 C (96.7 F) TempSrc: Oral Oral Oral SpO2: 96% 97% 98% 96% Weight: 69.9 kg (154 lb) 69.9 kg (154 lb) Height: 1.638 m (5' 4.5") Intake/Output Summary (Last 24 hours) at 04/11/2020 0858 Last data filed at 04/10/2020 2100 Gross per 24 hour Intake 301 ml Output 1700 ml Net -1399 ml Physical Exam Constitutional: He is oriented to person, place, and time. No distress. Cardiovascular: Normal rate and regular rhythm. Murmur (loud systolic murmur heard over right 2nd intercostal space) heard. Pulmonary/Chest: Effort normal. No respiratory distress. He has rales (crackles heard in bilateral lower lung vital). Abdominal: Soft. Bowel sounds are normal. There is no abdominal tenderness. Musculoskeletal: General: Edema (2+ pitting edema in bilateral lower extremities) present. Neurological: He is alert and oriented to person, place, and time. LABS/IMAGING - reviewed, pertinent results as below: 04/10/2020: Transthoracic echocardiogram The study was technically adequate. Contrast injection was performed. There is no comparison study available. The left ventricle is severely dilated. There is no thrombus. Ejection Fraction = 10-15%. Left ventricular filling pressure is elevated. There is severe global hypokinesis of the left ventricle. Severe eccentric left ventricular hypertrophy. LV mass index is 211 g/m2. The left atrium is severely dilated. This is consistent with critical aortic stenosis. There is mild tricuspid regurgitation. There is moderate pulmonary hypertension. The right ventricle is moderately dilated. The right ventricular systolic function is moderately reduced. CURRENT MEDICATIONS - reviewed. ASSESSMENT/PLAN Jodi tSeve is a 75 year old male admitted to the hospital with: Syncopal episodes CAD s/p CABG x3 s/p PCI of SVG to OM (02/2020) Critical Severe Aortic Stenosis Patient has remained hemodynamically stable, patient has been mildly tachycardic with HR trends in the 80-100s. Patient underwent CHRISTINA which revealed a critical aortic stenosis,severely dilated LV, global hypokinesis, severe eccentric LV hypertrophy with EF of 10-15%. He will undergo LHC and RHC to assess need of revascularization. - Renal diet, EKG qAM and PRN chest pain, Telemetry, O2 per protocol - Electrolytes: Keep K >4, Mg>2 - Daily labs: aPTT, PT/INR, BMP, Mag - Stop heparin drip - Plavix 75mg daily - Asa 81 mg po daily - Lipitor 80 mg po QHS Hematemesis likely- Upper GI Bleed Patient has one episode of hematemesis hide buyer, while taking medications. Patient then taken to [facility] and post procedure patient had episodes of hematemesis X3. GI was consulted for possible endoscopy, while inpatient. Heparin drip was discontinued. Patient will be typed and screened, already consented for blood products and placed in chart. -H&H q6h, keep hbg>7 transfuse if needed -2 large bore IV's -Type and screen- consented for blood products. -Protonix drip -Call GI fellow if overt bleeding - check INR and if >1.5 give vitamin K 10 mg IV - check fibrinogen and if <150 give cryoprecipitate - give platelets if <50 From cardiology stand point patient will be moderate to high risk for major adverse cardiovascular events perioperitevily given underlying severe aortic valve stenosis ESRD (on HD: M,W,F) Last HD session on Friday, baseline creatinine unknown. Nephrology following. - Nephro recs: -iron panel -daily CBC -phos, Ca, Albumin , PTH and Vit D level - Strict I/O, daily weights, renally dose medications, avoid nephrotoxic agents DM HTN HLD Hypothyroidism Last A1c 5.2, will continue to monitor. Patient on PUJA, will go ahead and continue home medication and start patient on high intensity statin. Patient noted to have TSH of 90 and low levels of T4, he was started on small dose of levothyroxine yesterday. Will continue to monitor glucose levels, SSI once needed. - lisinopril 2.5 daily - Atorvastatin 80mg - levothyroxine 50mcg Pain ControlledTylenol Prophylaxis: DVT- heparin Stress Ulcer: pantoprazole Code Status: addressed: Full Patient seen and examined with faculty, Dr. AMELIA VELÁSQUEZ, TAQUERIA Andria San M.D. Department of Internal Medicine, PGY-1 END OF DAILY PROGRESS NOTE HOSPITAL COURSE Jodi Steve is a 75 year old male with a PMH of ESRD on HD (M,W,F last session on Friday),HTN, HLD, DM, and severe CAD disease s/p CABG (2013) presenting to the hospital after syncopal episode. Patient notes that for the past 2 weeks he has been experiencing increased fatigue with activities of daily living and experiencing syncopal episodes. In the ED labs significant for troponin of 0.134, Pro-BNP of 194,000, A1c of 5.2, K of 5.2, mg of 2.1 and CXR with pulmonary edema, cardiomegaly and left pleural effusion. EKG with rate of 98, sinus rhythm with incomplete left bundle branch block, normal intervals otherwise, ST segment depressions ininferolateral leads. Patient was given 500cc bolus of NS fluids and was transferred to [facility] for further management. At [facility], the patient underwent CHRISTINA which revealed a critical aortic stenosis, severely dilated LV, global hypokinesis, severe eccentric LV hypertrophy with EF of 10-15%. He will undergoLHC and RHC to assess need of revascularization. CURRENT MEDICATIONS - reviewed. Current Facility-Administered Medications Medication Dose Route Frequency Last Rate Last Admin heparin (1,000 unit/mL, 10 mL vial) for Rebolusing 3,000 Units Slow IV Push FOR REBOLUSING heparin 25,000 Units/250 mL (Premixed Bag) in 0.45 % NS 12 Units/kg/hr IV Infusion TITRATE 6.4 mL/hr at 04/11/20 0232 9.143 Units/kg/hr at 04/11/20 0232 levothyroxine (SYNTHROID) tablet 50 mcg 50 mcg Oral QAM-0600 50 mcg at 04/11/20 0520 acetaminophen (TYLENOL) tablet 650 mg 650 mg Oral Q6HPRN 650 mg at 04/11/20 0050 aspirin chewable tablet 81 mg 81 mg Oral DAILY 81 mg at 04/11/20 0758 atorvastatin (LIPITOR) tablet 80 mg 80 mg Oral QHS 80 mg at 04/10/20 2103 dextrose 50 % in water (D50W) injection 25 mL 25 mL Slow IV Push PRN glucagon (GLUCAGEN DIAGNOSTIC KIT) injection 1 mg 1 mg Intramuscular PRN lisinopriL (PRINIVIL,ZESTRIL) tablet 2.5 mg 2.5 mg Oral DAILY 2.5 mg at 04/11/20 0758 ondansetron (ZOFRAN (PF)) injection 4 mg 4 mg Slow IV Push Q6HPRN 4 mg at 04/11/20 0804 pantoprazole (PROTONIX) EC tablet 40 mg 40 mg Oral DAILY 40 mg at 04/11/20 0758 NT CARE MANAGER Associated attestation - Taqueria Khan MD - 04/15/2020 11:04 AM CSTI personally examined the patient on 04/11/[address] San's resident note as written . I actively participated in the decision-making process. Please see the resident's note for additional details. Clarissa Guzman - 04/10/2020 9:00 PM CSTThis patient was in the hospital during an Epic EMR downtime on April 10, 2020. Documentation pertaining to this encounter may be located with the associated scanned documents. Antony Miller LMSW - 04/10/2020 4:10 PM CSTCare Management Social Functional Assessment Patient Name: Jodi Steve Age: [age] year old Sex: male Previous admit date: N/A ENVIRONMENTAL TEST TECHNICIAN spoke with patient/family to complete SFA. Role of Care Management explained. Initial ENVIRONMENTAL TEST TECHNICIAN screening and initial discharge plan established. ENVIRONMENTAL TEST TECHNICIAN anticipates patient to discharge to prior living situation and to be provided information on after care, medication management, and follow-ups prior to discharge. No discharge barriers identified. Patient has support from his and daughter. Patient to resume HD with Ak[facility] Bonilla at discharge. Current diagnosis and co-morbidities: Syncope and collapse Readmission Questions: Was patient discharged from any acute care hospital within the last 30 days: No Social Functional Assessment: Primary language spoken/preferred: Bahraini Mental Status: Alert & Oriented to Person,Place & Time Information given by: Child Name and phone number of person giving information: Nadia Freeman-daughter [phone] Patient's support system: Spouse;Child Name and number of support system: Nadia Freeman-daughter [phone]; Kristi Valladres- Primary Clay Machine Operator: Self MPOA: No Living Arrangement: Home: single story Address of living arrangement : (3 or 4 steps leading into the home) [facility] Chad Antony, [id number] Persons living in home: Self;Spouse Names & numbers of persons living in home: Kristi Valladres- Barriers to returning home: None Baseline functional status- ambulation: Independent Functional status-baseline personal care: Independent Baseline functional status- driving: Independent Baseline functional status- grocery shopping: Independent Functional status-baseline housekeeping: Independent Functional status-baseline meal prep: Independent Current functional status same as prior: Yes Do you have a PCP?: Yes Name of PCP: Franklin Melgar (Patient referred to the [facility] Follow up team due to recently changing his medicare advantage plan and his currently clerical adviser is not in network with the new plan. Request made for assistance in establishing a new PCP. Home Health Care Agency: No Provider Services: No DME Company: No Equipment: Cane;Rollator;Shower Chair;Other Other equipment: Glucometer Hemodialysis: Yes Dialysis Facility: [address] [address] (P) [phone] (F) [phone] Dialysis Schedule: [facility] Dialysis Time: 1000 Mode of Transportation: Self Last Dialysis date at Dialysis Center: 04/07/20 Community resources utilized: None Funding Resources: Medicare Replacement Medicare Replacement name and information: [employer] Prescription coverage plan: Medicare Part D Pharmacy where meds are filled: Other Other pharmacy: [id number] [address] [place] [address] Anticipated services prior to disharge: Continue Medical Eval;Dialysis;CHRISTINA/TTE Expected mode of discharge transportation: Same as support system Additional info required for discharge planning: Pending medical evaluation Recommended discharge plan: Home Any issues or concerns with obtaining/affording your medications at home: no. Are you or your support system able to order picker medications at discharge: yes. Describe: Daughter orspouse to order picker. SFA Complete: Social Functional Assessment complete: Yes Alcohol Use Screening (AUDIT-C) How often do you have a drink containing alcohol?: Never SCORE: 0 Role of Care Management explained. Antony Salinas LMSW Executive Vp Care Management-Pocket Creaser NT CARE MANAGER Andria San MD - 04/10/2020 8:41 AM CST White Team Progress Note Date of Service: 04/10/2020 08:52 Date of Admission: 04/09/2020 Chief Complaint: Syncopal episode 24-HOUR EVENTS: No acute events overnight Tele: Sinus rhythm with HR trends in the 80-90s. SUBJECTIVE: Mr. Jimenez was found sitting comfortably in bed in no acute distress. The patient states he is doing well, he slept well overnight and denies any chest pain or shortness of breath. Patient notes he would like to shower. OBJECTIVE: Vitals: 04/09/20 1956 04/09/20 2315 04/10/20 0353 04/10/20 0832 BP: 119/67 123/72 113/64 131/74 BP Location: Right arm Right arm Right arm Right arm Patient Position: Sitting Supine Supine Supine Pulse: 99 72 88 97 Resp: 18 18 18 17 Temp: 36.6 C (97.9 F) 36.3 C (97.4 F) 36.3 C (97.4 F) 36.3 C (97.4 F) TempSrc: Oral Oral Oral Oral SpO2: 96% 98% 98% 100% Weight: 72 kg (158 lb 12.8 oz) Height: Intake/Output Summary (Last 24 hours) at 04/10/2020 0852 Last data filed at 04/10/2020 0832 Gross per 24 hour Intake 340 ml Output 450 ml Net -110 ml Physical Exam Constitutional: He is oriented to person, place, and time. No distress. Cardiovascular: Normal rate and regular rhythm. Murmur (loud systolic murmur heard over right 2nd intercostal space) heard. Pulmonary/Chest: Effort normal. No respiratory distress. He has rales (crackles heard in bilateral lower lung vital). Abdominal: Soft. Bowel sounds are normal. There is no abdominal tenderness. Musculoskeletal: General: Edema (2+ pitting edema in bilateral lower extremities) present. Neurological: He is alert and oriented to person, place, and time. LABS/IMAGING - reviewed, pertinent results as below: CURRENT MEDICATIONS - reviewed. ASSESSMENT/PLAN Jodi Steve is a 75 year old male admitted to the hospital with: Syncopal episodes Patient has remained hemodynamically stable and denies chest pain or SOB. Initial troponins have been elevated at 0.134 and now downtrending to 0.128, but know to have ESRD. Will obtain TTE today and records from [facility] hospital. Plan: - Renal diet, EKG qAM and PRN chest pain, Telemetry, O2 per protocol - Electrolytes: Keep K >4, Mg>2 - Daily labs: aPTT, PT/INR, BMP, Mag - Heparin held overnight - Asa 81 mg po daily - Lipitor 80 mg po QHS - TTE - Obtain records from [facility] ESRD (on HD: M,W,F) Last HD session on Friday, baseline creatinine unknown. Nephrology consulted will dialyse today. - Nephro recs -iron panel -daily CBC -phos, Ca, Albumin , PTH and Vit D level - Strict I/O, daily weights, renally dose medications, avoid nephrotoxic agents DM HTN HLD Last A1c 5.2, will continue to monitor. Patient on PUJA, will go ahead and continue home medication and start patient on high intensity statin. monitor glucose levels, SSI once needed - lisinopril 2,5 daily - Atorvastatin 80mg Pain ControlledTylenol Prophylaxis: DVT- heparin Stress Ulcer: pantoprazole Code Status: addressed: Full Patient seen and examined with faculty, Dr. AMELIA VELÁSQUEZ, [facility] Andria San M.D. Department of Internal Medicine, PGY-1 END OF DAILY PROGRESS NOTE HOSPITAL COURSE Jodi Steve is a 75 year old male with a PMH of ESRD on HD (M,W,F last session on friday),HTN, HLD, DM, and severe CAD disease s/p CABG (2013) presenting to the hospital after syncopal episode. Patient notes that for the past 2 weeks he has been experiencing increased fatigue with activities of daily living and experiencing syncopal episodes. In the ED labs significant for tropinin of 0.134, Pro-BNP of 194,000, A1c of 5.2, K of 5.2, mg of 2.1 and CXR with pulmonary edema,cardiomegaly and left pleural effusion. EKG with rate of 98, sinus rhythm with incomplete left bundle branch block, normal intervals otherwise, ST segment depressions in i nferolateral leads. Patient was given 500cc bolus of NS fluids and was transferred to [facility] for further management. CURRENT MEDICATIONS - reviewed. Current Facility-Administered Medications Medication Dose Route Frequency Last Rate Last Admin lidocaine 1% (PF) (XYLOCAINE) injection 0.3 mL 0.3 mL Infiltration ONCE acetaminophen (TYLENOL) tablet 650 mg 650 mg Oral Q6HPRN aspirin chewable tablet 81 mg 81 mg Oral DAILY atorvastatin (LIPITOR) tablet 80 mg 80 mg Oral QHS 80 mg at 04/09/202028 dextrose 50 % in water (D50W) injection 25 mL 25 mL Slow IV Push PRN glucagon (GLUCAGEN DIAGNOSTIC KIT) injection 1 mg 1 mg Intramuscular PRN lisinopriL (PRINIVIL,ZESTRIL) tablet 2.5 mg 2.5 mg Oral DAILY ondansetron (ZOFRAN (PF)) injection 4 mg 4 mg Slow IV Push Q6HPRN pantoprazole (PROTONIX) EC tablet 40 mg 40 mg Oral DAILY 40 mg at 04/09/20 183 NT CARE MANAGER Associated attestation - Taqueria Khan MD - 04/10/2020 5:03 PM CSTI personally examined the patient on 04/10/[address] San's resident note as written . I actively participated in the decision-making process. Please see the resident's note for additional details. documented in this encounter H&P Notes Lisandro Delvalle MD - 04/12/2020 1:06 PM CST Endoscopy H & P Age: [age] year old Sex: male ASA Class: IV Indication: hematemesis Jodi Steve is a 75 year old male with past medical history of ESRD on HD (M,W,F last session on Friday), HTN, HLD, DM, and severe CAD disease s/p CABG (2013). Please see my consult note from yesterday for full details. Since that time the patient had a rapid response this morning, and was intubated after procedure and remains on ventilator. Histories: Past Medical History: Diagnosis Date 3-vessel CAD ESRD (end stage renal disease) HLD (hyperlipidemia) HTN (hypertension) History reviewed. No pertinent family history. History reviewed. No pertinent surgical history. Current Facility-Administered Medications Medication Dose Route Frequency Last Rate Last Admin aspirin chewable tablet 81 mg 81 mg Enteral DAILY atorvastatin (LIPITOR) tablet 80 mg 80 mg Enteral QHS clopidogreL (PLAVIX) tablet 75 mg 75 mg Enteral DAILY dextrose 50 % in water (D50W) injection 25 mL 25 mL Slow IV Push PRN fentaNYL PF (SUBLIMAZE) STD 2,500 mcg in NaCl 0.9% (NS) 250 mL infusion RTU 25-200 mcg/hr IV Infusion TITRATE 5 mL/hr at 04/12/20 0447 50 mcg/hr at 04/12/20 0447 midazolam (PF) (VERSED) STD 50 mg in NaCl 0.9% (NS) 50 mL infusion RTU 1-10 mg/hr IV Infusion TITRATE 1 mL/hr at 04/12/20 0447 1 mg/hr at 04/12/20 0447 dextrose 50 % in water (D50W) injection 25 mL 25 mL Slow IV Push PRN glucagon (GLUCAGEN DIAGNOSTIC KIT) injection 1 mg 1 mg Intramuscular PRN pantoprazole (PROTONIX) 80 mg in NaCl 0.9% (NS) 500 mL infusion 8 mg/hr IV Infusion CONTINUOUS 50 mL/hr at 04/12/20 0259 8 mg/hr at 04/12/20 0259 levothyroxine (SYNTHROID) tablet 50 mcg 50 mcg Oral QAM-0600 Stopped at 04/12/20 0600 acetaminophen (TYLENOL) tablet 650 mg 650 mg Oral Q6HPRN 650 mg at 04/11/20 0050 glucagon (GLUCAGEN DIAGNOSTIC KIT) injection 1 mg 1 mg Intramuscular PRN ondansetron (ZOFRAN (PF)) injection 4 mg 4 mg Slow IV Push Q6HPRN 4 mg at 04/11/20 0804 No Known Allergies Social History Socioeconomic History Marital status: Spouse name: KRISTI Number of children: 3 Years of education: Not on file Highest education level: GED or equivalent Occupational History Occupation: RETIRED Social Needs Financial resource strain: Not hard at all Food insecurity Worry: Never true Inability: Never true Transportation needs Medical: No Non-medical: No Tobacco Use Smoking status: Former Smoker Smokeless tobacco: Never Used Substance and Sexual Activity Alcohol use: Not on file Drug use: Not on file Sexual activity: Not on file Lifestyle Physical activity Days per week: Not on file Minutes per session: Not on file Stress: Not on file Relationships Social connections Talks on phone: Not on file Gets together: Not on file Attends yarsani service: Not on file Active member of club or organization: Not on file Attends meetings of clubs or organizations: Not on file Relationship status: Not on file Intimate partner violence Fear of current or ex partner: Not on file Emotionally abused: Not on file Physically abused: Not on file Forced sexual activity: Not on file Other Topics Concern Not on file Social History Narrative Patient Physical Exam: Mental Status: Intubated, sedated Abdomen: bowel sounds present Spleen Tip: non-palpable Hepatomegaly: no Mass: not present Tenderness: no Impression and Plan: Jodi Steve is a 75 year old male with PMH as above who presents with hematemesis. Will proceed with EGD. Benefits, risks, alternatives, and likelihood of achieving patient's goals of care discussed. Risks discussed including but not limited to aspiration, infection, bleeding, injury to the GI tract or surrounding vessels/structures, perforation, missed polyps/lesions,failure to obtain a diagnosis, failure to complete the procedure, cardiovascular complications such as NH, stroke, arrhythmia, and . Informed consent obtained/verified with patients daughter Nadia Srinivasan via the phone, with washerette machine operator witnessed. Education provided to the patient and family about the procedure. COVID19 History/Status: COVID test negative on 04/09/20 Lisandro Delvalle MD PGY-4 Gastroenterology and Hepatology Contact Information Available on [facility] NT CARE MANAGER Associated attestation - Hilton Vargas MD - 04/12/2020 1:41 PM CSTI personally examined the patient on 04/12/[address] Weber's note as written. I actively participated in the decision-making process. Please see the fellow's note for additional details. Will proceed with EGD for evaluation of hematemesis in setting of need for anticoagulation for management of cardiac issues.Patrick Markham MBBS - 04/12/2020 3:56 AM CST [facility] CCU H&P PCP: Franklin Melgar Date of Service: 04/12/2020 CHIEF COMPLAINT: cardiac arrest History of Present Illness/ hospital course Jodi Steve is a 75 year old male with a PMH ofESRD on HD (M,W,F last session on Friday),HTN, HLD, DM, and severe CAD disease s/p CABG (2013) presentingto the hospitalafter syncopal episode.Patient notes that for the past 2 weeks he has been experiencing increased fatigue with activities of daily living and experiencing syncopal episodes. In the ED labs significant fortroponin of 0.134, Pro-BNP of 194,000, A1c of 5.2, K of 5.2, mg of 2.1 and CXR withpulmonary edema, cardiomegaly and left pleural effusion. EKGwith [id number], sinus rhythm with incomplete left bundle branch block, normal intervals otherwise, ST segment depressions in inferolateral leads.Patient was given 500cc bolus of NS fluids andwas transferred to [facility] for further management. At [facility], the patient underwent CHRISTINA which revealed a critical aortic stenosis, severely dilated LV, global hypokinesis, severe eccentric LV hypertrophy with EF of 10-15%. He will undergo LHC and RHC to assess need of revascularization. During hide buyer of 04/12, patient collapsed while walking to bathroom , no pulse found , a code was called, ROSC achieved after 1 round of CPR without need for shocks or epinephrine. Transfer to CCU for further monitoring PAST MEDICAL HISTORY Past Medical History: Diagnosis Date 3-vessel CAD ESRD (end stage renal disease) HLD (hyperlipidemia) HTN (hypertension) History reviewed. No pertinent surgical history. History reviewed. No pertinent family history. ALLERGIES No Known Allergies MEDICATIONS No current facility-administered medications on file prior to encounter. Current Outpatient Medications on File Prior to Encounter Medication Sig Dispense Refill lidocaine-prilocaine 2.5-2.5 % cream Apply 1 Tube to area(s) as needed for Pain. aspirin 81 mg chewable tablet Take 81 mg by mouth daily. atorvastatin 20 mg tablet Take 20 mg by mouth daily. carvediloL 6.25 mg tablet Take 6.25 mg by mouth daily. cyclobenzaprine 5 mg tablet Take 1 tablet by mouth 2 (two) times daily for 30 days. 60 tablet 0 furosemide 40 mg tablet Take 40 mg by mouth daily. gabapentin 300 mg capsule Take 1 capsule by mouth daily for 90 days. 30 capsule 2 lisinopriL 2.5 mg tablet Take 2.5 mg by mouth daily. SOCIAL HISTORY Social History Socioeconomic History Marital status: Spouse name: KRISTI Number of children: 3 Years of education: Not on file Highest education level: GED or equivalent Occupational History Occupation: RETIRED Social Needs Financial resource strain: Not hard at all Food insecurity Worry: Never true Inability: Never true Transportation needs Medical: No Non-medical: No Tobacco Use Smoking status: Former Smoker Smokeless tobacco: Never Used Substance and Sexual Activity Alcohol use: Not on file Drug use: Not on file Sexual activity: Not on file Lifestyle Physical activity Days per week: Not on file Minutes per session: Not on file Stress: Not on file Relationships Social connections Talks on phone: Not on file Gets together: Not on file Attends yarsani service: Not on file Active member of club or organization: Not on file Attends meetings of clubs or organizations: Not on file Relationship status: Not on file Intimate partner violence Fear of current or ex partner: Not on file Emotionally abused: Not on file Physically abused: Not on file Forced sexual activity: Not on file Other Topics Concern Not on file Social History Narrative Patient REVIEW OF SYSTEMS (-)=Negative,(+)=Positive Unable to review, patient intubated PHYSICAL EXAMINATION Vitals: 04/11/20 1353 04/11/20 1720 04/11/20 1947 04/12/20 0003 BP: 119/70 (!) 140/85 108/69 103/64 BP Location: Left arm Right arm Right arm Right arm Patient Position: Supine Supine Sitting Supine Pulse: 100 97 103 92 Resp: 18 17 17 Temp: 36.3 C (97.3 F) 36.1 C (96.9 F) 35.7 C (96.2 F) TempSrc: Oral Oral Oral SpO2: 95% 94% 97% Weight: Height: General: intubated, opening eyes, following commands HEENT: pupils equal, round, reactive to light; extraocular movements intact; oropharynx clear; moistmucous membranes Neck: supple, no lymphadenopathy, no bruits, no JVD Lungs: Crackles BL Cardio: ejection systolic murmer , S2 normal; RRR Abdomen: soft; non-tender; non-distended; normoactive bowel sounds : not examined Rectal: not examined Extremities: no clubbing, cyanosis, or edema Skin: no rashes Neuro: cranial nerves II through XII grossly intact; sensation grossly intact; muscle strength 5 outof 5 in all four extremities LABS - reviewed pertinent labs as below: Reviewed IMAGING - reviewed, pertinent results as below: reviewed EKG: sinus tachycardia, LVH, unchanged T wave inversion lateral leads CHART REVIEW: pertinent information as below: reviewed ASSESSMENT/PLAN Jodi Steve is a 75 year old male with PMH as listed above, admitted to the hospital with: Critical Severe Aortic Stenosis Cardiac arrest Syncopal episodes CAD s/p CABG x3 s/p PCI of SVG to (02/2020) Patient collapsed while walking to bathroom, ROSC achieved after 2 mins, initial rhythm unknown( tele was off), good neurological exam following ROSC, intubated for airway protection. Cardiac arrest likely 2/2 circulatory failure 2/2 . [facility] yesterday with severe CAD and severe complicated with hematemesis during procedure, Hgb remains stable since then. - intubated for airway protection - consider urgent management of - Electrolytes: Keep K >4, Mg>2 - trend trop - Daily labs: aPTT, PT/INR, BMP, Mag - Stop heparin drip given recent bleeding, monitor HH - Plavix 75mg daily - Asa 81 mg po daily - Lipitor 80 mg po QHS Hematemesis likely- Upper GI Bleed Patient has one episode of hematemesis yesterday morning, while taking medications. Patient then taken to [facility] and post procedure patient had episodes of hematemesis X3. GI was consulted for possible endoscopy, while inpatient. Heparin drip was discontinued. - H&H q6h, keep hbg>7 transfuse if needed - 2 large bore IV's - Type and screen- consented for blood products. - Protonix drip - Call GI fellow if overt bleeding - check INR and if >1.5 give vitamin K 10 mg IV - check fibrinogen and if <150 give cryoprecipitate - give platelets if <50 From cardiology stand point patient will be moderate to high risk for major adverse cardiovascular events perioperitevily given underlying severe aortic valve stenosis ESRD (on HD: M,W,F) Last HD session on Friday, baseline creatinineunknown. Nephrology following. - Nephro recs: -iron panel -daily CBC -phos, Ca, Albumin , PTH and Vit D level - Strict I/O, daily weights, renally dose medications, avoid nephrotoxic agents DM HTN HLD Hypothyroidism Last A1c 5.2, will continue to monitor. Patient on PUJA, will go ahead and continue home medication and start patient on high intensity statin. Patient noted to have TSH of 90 and low levels of T4, he was started on small dose of levothyroxine yesterday. Will continue to monitor glucose levels, SSI once needed. - lisinopril 2.5 daily - Atorvastatin 80mg - levothyroxine 50mcg PainControlledTylenol Prophylaxis: DVT-heparin Stress Ulcer:pantoprazole Code Status:addressed:Full Patrick Bloom Internal Medicine PGY-3 NT CARE MANAGER Associated attestation - Mere Swain MD - 04/12/2020 3:29 PM CSTSeen, examined and discussed with team during rounds. Agree with Resident's Findings, assessment andplan Patient with critical aortic stenosis s/p RHC and cor angio yesterday and post procedures he was noted to have hematemesis and then was found by nursing staff leaning on bathroom door with possible syncope vs cardiac arrest ROSC achieved quickly and patient transferred to CCU and intubated Will ask GI to proceed with endoscopy while intubated, if unable to proceed with endoscopy today then will try to extubate as patient despite being on sedation seemed to be trying to wake up and would likely be ready for extubation. Andria San MD - 04/09/2020 5:33 PM CST [facility] Admit H&P PCP: Franklin Melgar Date of Service: 04/09/2020 CHIEF COMPLAINT: Syncopal episode HISTORY OF PRESENT ILLNESS Jodi Steve is a 75 year old male with a PMH of ESRD on HD (M,W,F last session on friday),HTN, HLD, DM, and severe CAD disease s/p CABG (2013) presenting to the hospital after syncopal episode. Patient notes that for the past 2 weeks he has been experiencing increased fatigue with activities of daily living. Patient notes he is unable to throw away trash without becoming tired assisted or towards the end of his chores. Per patient's daughter he first had a syncopal episode on Friday whilesitting on the couch, his noted he became limp and rubbed some alcohol over his nose to awaken him. Patient noted this happened again today, this time he was washing his hands when he felt a bit dizzy and nauseous, he lowered himself to the toilet bowl threw up once and fell to the floor. The patient notes he does not recall what happened but found him on the floor. Patient denies shortnessof breath of chest pain during these episodes. EMS was called but patient was felling better and didnot want to go to the ED. He was later driven to the ED by family. In the ED labs significant for tropinin of 0.134, Pro-BNP of 194,000, A1c of 5.2, K of 5.2, mg of 2.1 and CXR with pulmonary edema,cardiomegaly and left pleural effusion. EKG with rate of 98, sinus rhythm with incomplete left bundle branch block, normal intervals otherwise, ST segment depressions in i nferolateral leads. Patient was given 500cc bolus of NS fluids and was transferred to [facility] for further management. Of note the patient has a recent stent placed in March 16, [address] [facility] ([address] in there he was told that he needed to have a valve replaced, cannot recall which one. Per the patients daughter he has an appointment with CT surgery on Apr 18, 2020 for his valve replacement. Patient quit smoking about 45 years ago, and Quit drinking about 12 years ago. Past medical history: has no past medical history on file. Past surgical history: has no past surgical history on file. Social history: reports that he has quit smoking. He has never used smokeless tobacco. Family history: family history is not on file. Allergies: No Known Allergies MEDICATIONS No current facility-administered medications on file prior to encounter. Current Outpatient Medications on File Prior to Encounter Medication Sig Dispense Refill lidocaine-prilocaine 2.5-2.5 % cream Apply 1 Tube to area(s) as needed for Pain. aspirin 81 mg chewable tablet Take 81 mg by mouth daily. atorvastatin 20 mg tablet Take 20 mg by mouth daily. carvediloL 6.25 mg tablet Take 6.25 mg by mouth daily. cyclobenzaprine 5 mg tablet Take 1 tablet by mouth 2 (two) times daily for 30 days. 60 tablet 0 furosemide 40 mg tablet Take 40 mg by mouth daily. gabapentin 300 mg capsule Take 1 capsule by mouth daily for 90 days. 30 capsule 2 lisinopriL 2.5 mg tablet Take 2.5 mg by mouth daily. ROS: Review of Systems Constitutional: Negative for chills, fatigue and fever. HENT: Negative for sore throat. Eyes: Positive for visual disturbance. Respiratory: Positive for cough. Negative for chest tightness and shortness of breath. Cardiovascular: Positive for leg swelling. Negative for chest pain and palpitations. Gastrointestinal: Positive for abdominal pain, nausea and vomiting. Genitourinary: Positive for polyuria. Neurological: Positive for dizziness, syncope and weakness. Negative for headaches. Endocrine: Positive for polyuria. Physical Exam: BP 113/57 (BP Location: Right arm, Patient Position: Supine) | Pulse 97 | Temp 36.3 C (97.4 F)(Oral) | Resp 18 | Ht 1.626 m (5' 4") | Wt 71.7 kg (158 lb) | SpO2 97% | BMI 27.12 kg/m \\Body mass index is 27.12 kg/m. Wt Readings from Last 3 Encounters: 04/09/20 71.7 kg (158 lb) 03/14/20 71.7 kg (158 lb) Physical Exam Constitutional: He is oriented to person, place, and time. He appears well- nourished. No distress. HENT: Head: Normocephalic and atraumatic. Mouth/Throat: No oropharyngeal exudate. Eyes: Conjunctivae and EOM are normal. No scleral icterus. Neck: Normal range of motion. Neck supple. Cardiovascular: Normal rate and regular rhythm. Murmur (loud systolic murmur heard over right 2nd intercostal space) heard. Pulmonary/Chest: Effort normal. No respiratory distress. He has rales (present in bilaterl luncg vital). Abdominal: Soft. Bowel sounds are normal. There is no abdominal tenderness. Musculoskeletal: General: Edema (2+ pitting edema in bilateral lower extremities) present. No tenderness. Neurological: He is alert and oriented to person, place, and time. Skin: Skin is warm and dry. Venous statis changes in left lower extremity overlying shepherd. LABS - reviewed pertinent labs as below: Recent Labs 04/09/20 1241 WBC 5.35 HGB 9.4* HCT 28.9* MCV 101.0* PLT 130* Recent Labs 04/09/20 1241 NA 136 K 5.2* CA 9.5 CL 99 BUN 50* CREAT 5.34* GLU 116* TCO2 28 Recent Labs 04/09/20 1241 ALB 3.9 TPRO 6.9 BILIT 0.7 ALT 27 AST 24 ALKPHOS 91 IMAGING - reviewed, pertinent results as below: Hospital Encounter on 04/09/20 XR CHEST 1 VW Narrative CHEST ONE VIEW HISTORY: Syncope TECHNIQUE: AP view of the chest is obtained. FINDINGS: Increased central pulmonary vascularity is noted along with increased interstitial markings in the lung bases. Heart size is enlarged. Blunting of the left costophrenic angle is seen. Changes of median sternotomy are noted. CONCLUSIONS: 1. Pulmonary edema, cardiomegaly and left pleural effusion EKG: Time 1233. Rate 98. Sinus rhythm with incomplete left bundle branch block, normal intervals otherwise, ST segment depressions in inferolateral leads. CHART REVIEW: pertinent information as below: ASSESSMENT/PLAN Jodi Steve is a 75 year old male with PMH as listed above, admitted to the hospital with: Syncopal episode Patient has been expereicing syncopal episoded for the past week, but noticing increased fatigue during past 2 weeks. Udaytroberto has history of CABG in 2013 and most recent stent placement on feb 2020, noting valvular issues that will require replacement, per patients daughter. Patient notes to have elevated troponins levels, but know to have ESRD, we will continue to trend, currently denying chest pain or SOB. Plan: - Admit to [facility] - Cardiac diet, EKG qAM and PRN chest pain, Telemetry, O2 per protocol -Electrolytes: Keep K >4, Mg>2 - Admit labs: aPTT, PT/INR, CBC, BMP, LFTs, Mag, Phos, TSH, A1c, UA, NT-proBNP, fasting Lipid panelin AM - Trend Troponin I x 3 - Heparin bolus + drip - Asa 81 mg po daily - Lipitor 80 mg po QHS - TTE - NPO past midnight for possible procedure - Obtain records from [facility] ESRD (on HD: M,W,F) Last HD session on Friday, baseline creatinine unknown. Patient was given 500cc bolus at [facility]. Will consult nephrology tomorrow to assist with HD while inpatient - UA - Consider renal US if creatinine worsens - Consult neprhology - Strict I/O, daily weights, renally dose medications, avoid nephrotoxic agents DM HTN HLD Last A1c 5.2, will continue to monitor. Patient on PUJA, will go ahead and continue home medication and start patient on high intensity statin. monitor glucose levels, SSI once needed - lisinopril 2,5 daily - Atorvastatin 80mg Pain ControlledTylenol Prophylaxis: DVT- heparin Stress Ulcer: pantoprazole Code Status: addressed: Full Andria San M.D. Department of Internal Medicine, PGY-1 Current Meds: Current Facility-Administered Medications Medication Dose Route Frequency Last Rate Last Admin acetaminophen (TYLENOL) tablet 650 mg 650 mg Oral Q6HPRN [START ON 04/10/2020] aspirin chewable tablet 81 mg 81 mg Oral DAILY atorvastatin (LIPITOR) tablet 80 mg 80 mg Oral QHS dextrose 50 % in water (D50W) injection 25 mL 25 mL Slow IV Push PRN glucagon (GLUCAGEN DIAGNOSTIC KIT) injection 1 mg 1 mg Intramuscular PRN [START ON 04/10/2020] lisinopriL (PRINIVIL,ZESTRIL) tablet 2.5 mg 2.5 mg Oral DAILY ondansetron (ZOFRAN (PF)) injection 4 mg 4 mg Slow IV Push Q6HPRN NT CARE MANAGER Associated attestation - Taqueria Khan MD - 04/10/2020 2:48 PM CSTI personally examined the patient on 04/10/[address] San's resident note as written . I actively participated in the decision-making process. Please see the resident's note for additional details. documented in this encounter Procedure Notes Quique Disla MD - 04/17/2020 2:40 PM CSTProcedure(s): CORONARY ANGIOGRAPHY; LA PRQ BALLOON VALVULOPLASTY AORTIC VALVEPre-Procedure Diagnose(s): Nonrheumatic aortic valve stenosisCoronary angiogram/SVG and REED angiogram Balloon aortic valvuloplasty using 20 mm TRUE balloon x [address] Disla/Dr Means Indication; 75 year-old male with h/oESRD on HD (M,W,F),HTN, HLD, DM II, CAD disease s/p CABG (2013 off pump x4) admitted to [facility] for syncope/NSTEMI/acute systolic CHF pulmonary edema on 04/09/20. Pt c/o severe worsening exertional fatigue/dizziness/presyncope for past few weeks. Underwent R/LHC 04/11/20 showed patent REED to mLAD, patent SVg to OM1, patent SVG Y graft to RPDA and RPLB (severe p-mLAD stenosis, severe pLcx stenosis, patent RI, SURFACE TO AIR WEAPONS OFFICER of the dRCA). ECHO 04/12/20: showed moderately dialted LV, LVEF 15-20%, severe thick AV MG 40 OMAR 0.7, pulm HTN. EKG 04/12/20; normal sinus rhythm, LVH, diffuse ST T changes, IVCD. During hide buyer of 04/12/20,patient collapsed while walking to bathr oom , no pulse found, a code was called, ROSC achieved after 1 round of CPR without need for shocks or epinephrine, Transfer to CCU for further monitoring, due to hematemesis patient underwent EGD 04/12/20 that showed no active bleeding and some gastritis treated medically. Patient is stable now and denies CP/SOB at rest. Pt denies CVA/Sz/DVT/PE. Labs post cardiac arrest shows rising troponin/suggestive of NSTEMI. After detailed d/w patient/CTS/primary cardiology team will recommend plan for LHC/+-PCI/+-BAV in laborer orchard. Risks benefits and alternatives d/w patient and he understands and agrees. Continue ASA/plavix daily. LM: severe 50% diffuse severe calcification LAD; proximal 80% with mLAD 100% SURFACE TO AIR WEAPONS OFFICER, D1 small to medium size diffuse 50% LCx proximal 80%, mLcx competitive flow from patent SVG to OM1 RCA; proximal and mid diffuse tandem 80%, dRCA SURFACE TO AIR WEAPONS OFFICER SVG to OM1 patent, OM1 mild LI, retrograde flow to dLcx mild LI SVG to RPDA with Y graft to RPLB, patent, RPDA/RPLB mild LI REED to mLAD patent, m-dLAD mild LI Aortic valve MG baseline 46, and post balloon aortic valvuloplasty x 2 AV MG 26 LVEDP 30 pre and post BAV Bedside TTE: Baseline MG 46 and post BAV MG 26 mild AR No complications, no CP, vitals stable A/P; -Stable pilot point CAD with patent REED to mLAD, patent SVG to OM1, and patent SVG Y graft to RPDA/CACL2lfucrh. -Successful Balloon aortic valvuloplasty using True balloon. -ASA 81 mg daily for terminal make up operator. Plavix 75 mg once daily for 6-12 months for NSTEMI/CAD. -Case already seen by CTS Dr Herman and heart team eval done. Plan for elective out patient AVR evaluation. In my opinion patient is better candidate for TAVR due to age/ESRD/PAD/prior CABG with patent grafts. -d/w patient in detail, all questions answered. F/u with me in clinic in 1-2 months after d/c. TAVR evaluation to be coordinated by Camilla meyer valve coordinator. Aracelis Snider MD - 04/11/2020 11:41 AM CLIENT CARE MANAGER RIGHT & LEFT HEART CATHETERIZATION PROCEDURE NOTE Date of Service: 04/11/2020 Faculty/Fellow: Brenda/Amita. Indication/Diagnosis: Severe , Syncope, SOB. Procedure: selective coronary angiogram, Vein grafts,, R heart cath. Consent source: patient. Consent type: indications/complications discussed with patient/legal guardian; written consent obtained. Time out completed: yes. The sedation pre-assessment was discussed and I concurred with the plan for sedation or anesthesia as captured in the flowsheet pre-assessment rows by the nurse. Aseptic technique: Chloraprep. Local Anesthesia: 1% lidocaine without epinephrine. Sedation: fentanyl 75 mcg, Versed 2 mg. Instrument(s) type: JL-4, JR-4, 3DRC, SHIVAM. Access site: Right femoral vein/artery. Contrast: 270 ml. Flour dose: 1100 mGy. Closure Method: manual Sterile dressing: yes Complications: None Findings: Dominance: Right LM: ostial part has around 50-60% stenosis. Distal part has mild diffuse disease. LAD: proximal part has severe disease 70% then moderate diffuse disease then there is competitiive flow from REED to mid LAD. D1: there is moderate diffuse disease 50-60% LCx: Nondominant, there is around 70% disease in the proximal part. OM1: moderate disease around 60%. RCA: dominant vessel, severe disease involving proximal and mid parts then flow from grafts distally. Vein grafts: REED to LAD: patent with no significant stenosis. Vein graft to OM: patent with no significant stenosis. Vein graft to RCA: its bi graft to distal part both PDA and PLB,. Its patent with some moderate stenosis around 60%. PRESSURES (mmHg): SITE: RA Mean: 11. RV Systolic: 54. RV End Diastolic: 15. PA Systolic: 52. PA Diastolic: 28. PA Mean: 33. Wedge Mean: 25. OXYGEN SATURATION PERCENTAGE: PA: 56. Ao: 98. MICHELLE CARDIAC OUTPUT: Cardiac Output: 4.37 L/min. Cardiac Index: 2.5 L/min/m2. THERMODILUTION CARDIAC OUTPUT: Cardiac Output: 6.5 L/min. Cardiac Index: 3.7 L/min/m2. Impression: 1. Severe pilot point multivessel coronary artery disease. 2. Patent grafts. 3. Elevated right and left sided filling pressures. 4. Pulmonary hypertension likely due to left heart disease. 5. Severe aortic valve stenosis by echocardiogram. Plan: 1. Standard post procedure care. 2. Consider TAVR evaluation for underlying severe . 3. Continue aggressive risk factors modifications for underlying CAD. 4. Continue fluid removal with HD. Aracelis Gutierrez MD Sausage Smokerhose finisher Advanced Heart Failure / Mechanical Circulatory Support / Transplant Division of Cardiology, Department of Internal Medicine. Date of Service: 04/11/2020 NT CARE MANAGER documented in this encounter Consult Notes Tommy Pulido - 04/18/2020 12:00 PM CSTAssociated Order(s): CONSULT PASTORAL CARE Pharmacy Operations Manager visited the patient per consult. Patient had wanted to visit with a building drafting officer prior to a procedure, but the procedure has already taken place. Patient was very pleased with how he feels after the procedure and is ready to go home. Patient has good family support at home. Patient seems to have a strong and active Yazidism olya. Pharmacy Operations Manager provided presence and empathic listening. Pharmacy Operations Manager prayed; the patient was very thankful for the visit. Tommy Pulido MDiv Pharmacy Operations Manager [facility] Dept. Of Pastoral Care Office: [phone] signed by Tommy Pulido at 04/18/2020 12:26 PM CSTSoKendall paz MD - 04/14/2020 12:04 PM CSTAssociated Order(s): CONSULT CARDIOVASCULAR SURGERY Cardiothoracic Consult Date of Service: 04/14/2020 Requesting Physician: Andria San MD IDENTIFYING DATA Patient name: Jodi Steve : 1945 Primary care physician: Franklin Melgar HISTORY OF PRESENT ILLNESS We are asked to render an opinion regarding Jodi Steve, 75 year old, male, who we were asked to see for assistance with TAVR. He has a pertinent history of previous CABG in 2011 and aortic stenosis with a mean aortic valve gradient measures 42.7 mmHg. His symptoms include syncope about 2X aweek, shortness of breath on exertion, denies major chest pain. During this hospital stay, he has gotten workup of GI bleeding as well which just showed gastritis CURRENT MEDICATIONS & ALLERGIES History of Steroid Therapy: no Allergies: No Known Allergies Medications prior to Admission: No current facility-administered medications on file prior to encounter. Current Outpatient Medications on File Prior to Encounter Medication Sig Dispense Refill lidocaine-prilocaine 2.5-2.5 % cream Apply 1 Tube to area(s) as needed for Pain. aspirin 81 mg chewable tablet Take 81 mg by mouth daily. atorvastatin 20 mg tablet Take 20 mg by mouth daily. carvediloL 6.25 mg tablet Take 6.25 mg by mouth daily. furosemide 40 mg tablet Take 40 mg by mouth daily. gabapentin 300 mg capsule Take 1 capsule by mouth daily for 90 days. 30 capsule 2 lisinopriL 2.5 mg tablet Take 2.5 mg by mouth daily. Hospital Medications: Current Facility-Administered Medications Medication Dose Route Frequency Last Rate Last Admin heparin (1,000 unit/mL, 10 mL vial) for Rebolusing 3,000 Units Slow IV Push FOR REBOLUSING heparin 25,000 Units/250 mL (Premixed Bag) in 0.45 % NS 12 Units/kg/hr IV Infusion TITRATE lidocaine 1% (PF) (XYLOCAINE) injection 0.3 mL 0.3 mL Infiltration ONCE Stopped at 04/14/20 0815 aspirin chewable tablet 81 mg 81 mg Enteral DAILY 81 mg at 04/13/20 0802 atorvastatin (LIPITOR) tablet 80 mg 80 mg Enteral QHS 80 mg at 04/13/20 214 clopidogreL (PLAVIX) tablet 75 mg 75 mg Enteral DAILY 75 mg at 04/13/20 0802 dextrose 50 % in water (D50W) injection 25 mL 25 mL Slow IV Push PRN fentaNYL PF (SUBLIMAZE) STD 2,500 mcg in NaCl 0.9% (NS) 250 mL infusion RTU 25-200 mcg/hr IV Infusion TITRATE Stopped at 04/13/20 0800 midazolam (PF) (VERSED) STD 50 mg in NaCl 0.9% (NS) 50 mL infusion RTU 1-10 mg/hr IV Infusion TITRATE Stopped at 04/13/20 0800 pantoprazole (PROTONIX) 40 mg in NaCl 0.9% (NS) 100 mL MINI-BAG 40 mg IV Piggyback Q12H 40 mgat 04/13/20 2143 glucagon (GLUCAGEN DIAGNOSTIC KIT) injection 1 mg 1 mg Intramuscular PRN levothyroxine (SYNTHROID) tablet 50 mcg 50 mcg Oral QAM-0600 50 mcg at 04/14/20 0516 acetaminophen (TYLENOL) tablet 650 mg 650 mg Oral Q6HPRN 650 mg at 04/11/20 0050 ondansetron (ZOFRAN (PF)) injection 4 mg 4 mg Slow IV Push Q6HPRN 4 mg at 04/11/20 0804 REVIEW OF SYSTEMS Reviewed previous ROS from history and physical dated 04/09/2020 and there are no changes. HISTORIES PAST MEDICAL HISTORY Past Medical History: Diagnosis Date 3-vessel CAD ESRD (end stage renal disease) HLD (hyperlipidemia) HTN (hypertension) Steatosis Renal mass PAST SURGICAL HISTORY Past Surgical History: Procedure Laterality Date ESOPHAGOGASTRODUODENOSCOPY N/A 04/12/2020 Surgeon: Hilton Vargas MD; Location: Endoscopy ([facility]) OR Location SOCIAL HISTORY Social History Tobacco Use Smoking status: Former Smoker Smokeless tobacco: Never Used Substance Use Topics Alcohol use: Not on file Drug use: Not on file FAMILY HISTORY History reviewed. No pertinent family history. PHYSICAL EXAMINATION Vitals - BP 120/78 (BP Location: Right arm, Patient Position: Supine) | Pulse 103 | Temp 36.2 C (97.2 F) (Tympanic) | Resp 17 | Ht 1.638 m (5' 4.5") | Wt 68.5 kg (151 lb 0.2 oz) | SpO2 97% | BMI 25.52 kg/m General: Patient is alert and oriented x4 and in no acute distress. Head: Head is normocephalic, atraumatic. Eyes: conjunctivae and sclerae normal Mouth/Throat-moist mucus membranes with clear oropharynx. Neck Jugular veins: negative Respiratory: Respiratory effort: breathing comfortably Auscultations of lungs:clear to auscultation Cardiovascular: Palpitation of heart: Normal/Nondisplaced PMI. No thrills or heaves. Chest - auscultation heart: The heart rate is normal with regular rhythm, and without And hasa systolic murmur best heard in the right 2nd intercostal Carotid Arteries (Bruits): normal - no bruits but can auscultate radiation from aortic/systolic murmur Abdominal Aorta: not examined Pedal Pulses: Not examined Extremities (lower): edema - none. Veins - not examined. GastrointestinalI: Abdomen- palpation: soft, non tender Liver & Spleen: normal, non palpable Skin Inspection - phlebitis, pustules: negative; Left incisions from saphenous vein harvesting Neurologic: Orientation: awake and alert Mood and Affect: appropriate Muscular: Kyphosis/Scoliosis: not examined Muscle strength/gait: not examined MEDICAL DECISION MAKING LABS CBC BMP PT/INR WBC (10*3/L) Date Value 04/14/2020 7.82 NA (mmol/L) Date Value 04/14/2020 137 No results found for: PT RBC (10*6/L) Date Value 04/14/2020 2.50 (L) K (mmol/L) Date Value 04/14/2020 4.5 INR (no units) Date Value 04/12/2020 1.2 PLT (10*3/L) Date Value 04/14/2020 143 (L) CALCIUM (mg/dL) Date Value 04/14/2020 9.3 HGB (g/dL) Date Value 04/14/2020 8.2 (L) CL (mmol/L) Date Value 04/14/2020 99 aPTT HCT (%) Date Value 04/14/2020 25.6 (L) BUN (mg/dL) Date Value 04/14/2020 41 (H) APTT Patient (Seconds) Date Value 04/12/2020 25 (L) CREATININE (mg/dL) Date Value 04/14/2020 5.76 (H) GLUCOSE (mg/dL) Date Value 04/14/2020 135 (H) PHENYTOIN CO2 TOTAL (mmol/L) Date Value 04/14/2020 24 No results found for: PHENYTOIN No results found for: PHENYFREE No results found for: PHENYTLTD Liver Function Test: ALBUMIN (g/dL) Date Value 04/12/2020 3.2 (L) No components found for: KTPRO BUN (mg/dL) Date Value 04/14/2020 41 (H) CREATININE (mg/dL) Date Value 04/14/2020 5.76 (H) ALTv (U/L) Date Value 04/12/2020 33 AST(SGOT) (U/L) Date Value 04/12/2020 36 No components found for: ALKP The labs are acceptable given the patient's condition and do not require intervention or further study. RADIOLOGYUs Abdomen Limited Result Date: 04/13/2020 Normal hepatic contours. Cholelithiasis without acute cholecystitis. A 7.6 cm cystic structure adjacent to the spleen could represent an exophytic left renal cyst. However the left kidney itself is notincluded as part of this examination. Please correlate for stability with prior imaging if available. Alternatively, interval follow-up with ultrasound of the kidneys/retroperitoneum could be obtained to document for stability. Small right pleural effusion. IShaista MD., have reviewed this study and agree with the above report. Us Retroperitoneal Limited Result Date: 04/13/2020 1. Bilateral small kidneys with thin cortices, consistent with chronic kidney disease. 2. A 5.4 cmsimple cyst projected exophytically from superior pole of the left kidney. Preliminary Report Dictated by Resident: Miladys Jones I, Kristin Dewitt MD., have reviewed this study and agree with the above report. No new Radiology OTHER TESTS EKG: Normal sinus rhythm Possible Left atrial enlargement Left ventricular hypertrophy with QRS widening and repolarization abnormality Abnormal ECG When compared with ECG of 12-APR-2020 03:29, Minimal criteria for Anterior infarct are no longer Present T wave inversion less evident in Inferior leads T wave inversion more evident in Anterior leads Echocardiograms: A two-dimensional transthoracic echocardiogram, with color flow Doppler was performed. The study was technically adequate. Compared to prior study, there is no significant change. Diastolic dysfunction. The left ventricle is moderately dilated. There is moderate to severe global hypokinesis of the left ventricle. Ejection Fraction = 20-25%. The overall left ventricular function appears severely reduced. The right ventricular funtion is moderately reduced. Severe valvular aortic stenosis. Right ventricular systolic pressure is elevated at 40-45 mmHg. There is pulmonary hypertension The aortic valve is severely thickened and calcified. The mean aortic valve gradient measures 42.7 mmHg. The peak to peak aortic valve gradient measures 89.0 mmHg. Severe valvular aortic stenosis. Left heart cath/Right heart cath: Dominance: Right LM:ostial part has around 50-60% stenosis. Distal part has mild diffuse disease. LAD:proximal part has severe disease 70% then moderate diffuse disease then there is competitiive flow from REED to mid LAD. D1: there is moderate diffuse disease 50-60% LCx:Nondominant, there is around 70% disease in the proximal part. OM1: moderate disease around 60%. RCA:dominant vessel, severe disease involving proximal and mid parts then flow from grafts distally. Vein grafts: REED to LAD: patent with no significant stenosis. Vein graft to OM: patent with no significant stenosis. Vein graft to RCA: its bi graft to distal part both PDA and PLB,. Its patent with some moderate stenosis around 60%. PRESSURES (mmHg): SITE: RA Mean:11. RV Systolic:54.RV EndDiastolic:15. PA Systolic:52. PA Diastolic:28. PA Mean:33. Wedge Mean: 25. OXYGEN SATURATION PERCENTAGE: PA:56. Ao: 98. MICHELLE CARDIAC OUTPUT: Cardiac Output:4.37L/min. Cardiac Index:2.5 L/min/m2. THERMODILUTION CARDIAC OUTPUT: Cardiac Output:6.5L/min. Cardiac Index:3.7 L/min/m2. STS Risk Risk of Mortality: 22.818% Renal Failure: NA Permanent Stroke: 7.830% Prolonged Ventilation: 62.463% DSW Infection: 0.526% Reoperation: 8.607% Morbidity or Mortality: 68.664% Short Length of Stay: 4.058% Long Length of Stay: 48.288% DIAGNOSIS / ASSESSMENT Severe aortic stenosis MANAGEMENT OPTIONS & PLAN 75 y/o M who we were asked to see for assitance for TAVR procedure. He is high risk for SAVR and mauri better candidate for TAVR, we will follow along. Had previous CABG with left saphenous vein harvests Discussed with dr. Batsheva Chow MD, [facility] General Surgery Resident PGY 4 Personal Pager: [phone] NT CARE MANAGER Associated attestation - Bryan Fields MD - 04/17/2020 7:09 AM CSTAgree. Previous bypass grafts tilt risk/benefit equation to favor TAVR. Lisandro Lakhani MD - 04/11/2020 1:11 PM CSTAssociated Order(s): CONSULT GASTROENTEROLOGY Department of Gastroenterology & Hepatology Consult Note Requesting Physician: Taqueria Khan MD Service: Cardiology Reason for Consultation: 75 year old gentleman with past medical history of ESRD on HD (M,W,F last session on Friday), HTN, HLD, DM, and severe CAD disease s/p CABG (2013) presenting to the hospital after syncopal episode. Pt with no known hx of liver disease, remote hx of alcohol use but quit 12 years ago, no current use of NSAIDs. Recent history of PCI at [facility] (03/16/2020) on dual antiplatelet therapy: aspirin and plavix. Patient underwent LHC and RHC while at [facility], post-procedure patient had an episode of large blood vomitus (blood clot in appearance). He has been on heparin as well. Patient also had a small vomit in the AM after taking morning meds, with some blood clots present. Per patient this has never happened before. Heparin has been stopped, 2 large bore IV's, and PPI have been ordered. Please assess the need to scope the patient during admission. Thank you for your help. Date of Service: 04/11/2020 CHIEF COMPLAINT: hematemesis History of Present Illness Jodi Steve is a 75 year old /White male with PMH of severe aortic stenosis, CAD s/p CABG, DM2, HTN, ESRD on HD, HLD who presented with syncope. Patient was originally admitted for syncope after he had loss of consciousness when sitting down on couch. Here he had TTE performed showing poor EF and then underwent left and right heart catheterization today. This morning the patient had a small volume emesis which may have had some blood in it. After his heart catheterization patient began to vomit large blood clots that were dark maroon- red, with some brighter red tinge as well. He then subsequently had a second episode shortly after. GI was consulted due to the sudden onset of hematemesis. Patient has never had GI bleeds in past. Denies any melena or hematochezia. He has never had any endoscopic evaluation in the past. He is on daily aspirin and plavix and appears plavix held today, withlast dose yesterday. He does not take any anticoagulation, but was on heparin until roughly 1100 this morning which was held prior to catherization. PMH: as above PSH: no abdominal surgeries NKDA Family Hx: no GI malignancy or IBD Social Hx: remote tobacoo and ETOh use, but hasn't done in over 10 years. No drug use, lives in [place]. Upon presentation, vital signs were BP 124/83, HR 102, RR 20. Pertinent workup showed INR 1.2, Hgb 9.4 with MCV of 101, BUN of 37, Cr 3.77. These labs were from 04/09/20. PREVIOUS INVESTIGATIONS None in our system PAST MEDICAL HISTORY No past medical history on file. PAST SURGICAL HISTORY No past surgical history on file. FAMILY HISTORY No family history on file. ALLERGIES No Known Allergies MEDICATIONS Current Facility-Administered Medications Medication Dose Route Frequency Last Rate Last Admin clopidogreL (PLAVIX) tablet 75 mg 75 mg Oral DAILY pantoprazole (PROTONIX) 80 mg in NaCl 0.9% (NS) 20 mL syringe 80 mg IV Push ONCE pantoprazole (PROTONIX) 80 mg in NaCl 0.9% (NS) 500 mL infusion 8 mg/hr IV Infusion CONTINUOUS levothyroxine (SYNTHROID) tablet 50 mcg 50 mcg Oral QAM-0600 50 mcg at 04/11/20 0520 acetaminophen (TYLENOL) tablet 650 mg 650 mg Oral Q6HPRN 650 mg at 04/11/20 0050 aspirin chewable tablet 81 mg 81 mg Oral DAILY 81 mg at 04/11/20 0758 atorvastatin (LIPITOR) tablet 80 mg 80 mg Oral QHS 80 mg at 04/10/20 2103 dextrose 50 % in water (D50W) injection 25 mL 25 mL Slow IV Push PRN glucagon (GLUCAGEN DIAGNOSTIC KIT) injection 1 mg 1 mg Intramuscular PRN lisinopriL (PRINIVIL,ZESTRIL) tablet 2.5 mg 2.5 mg Oral DAILY 2.5 mg at 04/11/20 0758 ondansetron (ZOFRAN (PF)) injection 4 mg 4 mg Slow IV Push Q6HPRN 4 mg at 04/11/20 0804 SOCIAL HISTORY Social History Socioeconomic History Marital status: Spouse name: KRISTI Number of children: 3 Years of education: Not on file Highest education level: GED or equivalent Occupational History Occupation: RETIRED Social Needs Financial resource strain: Not hard at all Food insecurity Worry: Never true Inability: Never true Transportation needs Medical: No Non-medical: No Tobacco Use Smoking status: Former Smoker Smokeless tobacco: Never Used Substance and Sexual Activity Alcohol use: Not on file Drug use: Not on file Sexual activity: Not on file Lifestyle Physical activity Days per week: Not on file Minutes per session: Not on file Stress: Not on file Relationships Social connections Talks on phone: Not on file Gets together: Not on file Attends yarsani service: Not on file Active member of club or organization: Not on file Attends meetings of clubs or organizations: Not on file Relationship status: Not on file Intimate partner violence Fear of current or ex partner: Not on file Emotionally abused: Not on file Physically abused: Not on file Forced sexual activity: Not on file Other Topics Concern Not on file Social History Narrative Not on file ROS: Constitutional: No weakness HEENT: No dry mouth CV: No chest pain Resp: No shortness of breath GI: No abdominal pain : No burning with urination MSK: No joint pain Skin: No rashes Neuro: No focal weakness Endo: No increased thirst Heme: No feelings of lymphadenopathy PHYSICAL EXAM BP 124/83 | Pulse 101 | Temp 35.9 C (96.7 F) (Oral) | Resp 20 | Ht 1.638 m (5' 4.5") | Wt 69.9 kg (154 lb) | SpO2 94% | BMI 26.03 kg/m General: Patient alert and oriented x4, No apparent distress. HEENT: EOMI, Anicteric sclerae. Neck: Supple,no lymphadenopathy Cardiovascular: Regular rate and rhythm, loud 4/6 systolic murmur at left upper sternal border. Sternotomy scar Respiratory: Clear to auscultation bilaterally. Abdomen: Nondistended, no surgical scars, inverted umbilicus, no tenderness, no masses, normal bowelsounds. Rectal: Brown stool, and normal Musc: No spinal or paraspinal tenderness, no joint effusions, no clubbing. Skin: Intact and warm, dry. No jaundice or cyanosis. Neuro: No focal deficits LABORATORY HGB (g/dL) Date Value 04/09/2020 9.4 (L) PLT (10*3/L) Date Value 04/09/2020 130 (L) INR (no units) Date Value 04/10/2020 1.2 04/09/2020 1.2 Hepatic Function Panel ALBUMIN (g/dL) Date Value 04/09/2020 3.9 T PROTEIN (g/dL) Date Value 04/09/2020 6.9 TOTAL BILI (mg/dL) Date Value 04/09/2020 0.7 No results found for: BILIUNCON No results found for: BILICONJ ALTv (U/L) Date Value 04/09/2020 27 AST(SGOT) (U/L) Date Value 04/09/2020 24 ALK PHOS (U/L) Date Value 04/09/2020 91 BMP NA (mmol/L) Date Value 04/11/2020 135 K (mmol/L) Date Value 04/11/2020 4.6 CALCIUM (mg/dL) Date Value 04/11/2020 9.5 CL (mmol/L) Date Value 04/11/2020 98 BUN (mg/dL) Date Value 04/11/2020 37 (H) CREATININE (mg/dL) Date Value 04/11/2020 3.77 (H) GLUCOSE (mg/dL) Date Value 04/11/2020 112 (H) CO2 TOTAL (mmol/L) Date Value 04/11/2020 30 ECHO Interpretation Summary A two-dimensional transthoracic echocardiogram with M-mode and Doppler was performed. The study was technically adequate. Contrast injection was performed. There is no comparison study available. The left ventrical is severely dilated. There is no thrombus. Ejection Fraction = 10-15%. Left ventricular filling presure is elevated. There is severe global hypokinesis of the left ventricle. Severe eccentric left ventricular hypertrophy. LV mass index is 211 g/m2. The left atrium is severely dilated. This is consistent with critical aortic stenosis. There is mild tricuspid regurgitation. There is moderate pulmonary hypertension. The right ventricle is moderately dilated. The right ventricular systolic function is moderately reduced. ASSESSMENT AND PLAN Jodi Steve is a 75 year old male with PMH critical aortic stenosis, CAD s/p CABG, DM2, HTN, ESRD on HD, HLD as listed above, GI consulted for: Hematemesis Acute Blood Loss Anemia Critical Aortic Stenosis CAD Pulmonary HTN Assessment: Patient presenting with symptoms of acute hematemesis with no prior history of GI bleed. Unclear what exactly precipitated this, as he did not have any manipulation of GI tract such as CHRISTINA, and no signs of nose or upper pharyngeal bleed. Given his critical aortic stenosis AVM's are likely, however large volume hematemesis makes this seem unlikely. Could have peptic ulcer disease given history of aspirin use, and another differential could be Fly ulcers or even a dieulafoy lesion. He is on HD andhis BUN/Cr ratio is unhelpful in further assessment, but he clearly has hematemesis. No melena whichfits an acute picture of his current bleed. Recommendations: - Maintain 2 large bore IV's at all times with active type and screen - monitor H/H q6h, transfuse to keep Hgb >7 - check INR and if >1.5 give vitamin K 10 mg IV - check fibrinogen and if <150 give cryoprecipitate - give platelets if <50 - Protonix 80 mg IV bolus, and then 8 mg/hr continuous - hold blood thinners and anti-platelet agents as possible given his heart disease history - notify GI fellow distribution superintendent if any overt bleeding with associated hemodynamic changes or hemoglobin drop - transfer to CCU for closer monitoring and resuscitation - please have cardiology perform dion-procedural risk stratification for possible upper endoscopy - currently will treat with medical management given he is likely high dion- procedural cardiac risk.Endoscopy can be considered if emergently indicated. Okay for clear liquid diet today, and keep NPO past midnight for potential endoscopy. Will follow along closely Patient was seen and discussed with Dr. Vargas. Please call with any questions. GI will continue to follow. Lisandro Delvalle MD PGY-4 Gastroenterology and Hepatology Contact Information Available on [facility] NT CARE MANAGER Associated attestation - Hilton Vargas MD - 04/11/2020 4:48 PM CSTI personally examined the patient on 04/11/[address] Delvalle's note as written. I actively participated in the decision-making process. Please see the fellow's note for additional details. documented in this encounter Nursing Notes Inna Mayes RN - 04/11/2020 12:57 PM CSTPresented to laborer pie bakery recovery post procedure at 1155. Report received from Director Compensation staff that theyhave to stop in the middle of the procedure due to patient vomited a big chunk of dark red blood. Pt. monitored in Director Compensation recovery area. Heart rate is slightly elevated. Heart rate baseline is 102-107 before the procedure. All other vitals are stable. Pt. vomited another 30ml of dark red fluid with blood, was seen by fellow MD Ricki at 1240. GI staff came to see patient at 1255. documented in this encounter ED Notes Danuta Coley RN - 04/09/2020 2:20 PM CSTCalled granddaughter to update on POC and room number. anuta Coley RN - 04/09/2020 12:35 PM CSTPt daughter reports that patient has passed out twice this week. Pt had a heart stent and is due fora "valve" procedure. hiEdward dodge RN - 04/09/2020 12:25 PM CLIENT CARE MANAGER" A while ago i was about to eat. Ellerbe nauseated. Went to restroom. Passed out. I don't remember if i fell down and hit head." . Dialysis patient. Patient is alert awake x4 H/O kidney problem. 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 Unknown if he hit his head. Patient states that he had a heart catheterization at [facility] on 03/15/2020 and has a abnormal heartvalve. Unknown ejection fraction. Past Medical History / Immunizations No past medical history on file. Tetanus received in last 5 years: Unknown Childhood immunizations: Up-to-date Past Surgical History No past surgical history on file. Allergies No Known Allergies Social History Substance & Sexual Activity No substance use or sexual activity history on file. Review of Systems Review of Systems Constitutional: Positive for fatigue. Negative for fever. Respiratory: Positive for shortness of breath. Gastrointestinal: Negative for abdominal pain, nausea and vomiting. Musculoskeletal: Negative for back pain. Neurological: Positive for syncope and light-headedness. Physical Exam BP 109/75 | Pulse 95 | Temp 35.8 C (96.5 F) (Oral) | Resp 17 | Ht 1.626 m (5' 4") | Wt 71.7kg (158 lb) | SpO2 97% | BMI 27.12 kg/m Physical Exam Vitals signs and nursing note reviewed. Constitutional: Appearance: He is well-developed. HENT: Head: Normocephalic and atraumatic. Eyes: General: No scleral icterus. Conjunctiva/sclera: Conjunctivae normal. Pupils: Pupils are equal, round, and reactive to light. Neck: Musculoskeletal: Normal range of motion and neck supple. Vascular: No JVD. Cardiovascular: Rate and Rhythm: Normal rate and regular rhythm. Pulses: Normal pulses. Heart sounds: Murmur present. Systolic murmur present with a grade of 4/6. Pulmonary: Effort: Pulmonary effort is normal. Breath sounds: Normal breath sounds. No stridor. Chest: Comments: Surgical scar from median sternotomy. Abdominal: General: Bowel sounds are normal. Palpations: Abdomen is soft. Musculoskeletal: Normal range of motion. Skin: General: Skin is warm and dry. Neurological: Mental Status: He is alert and oriented to person, place, and time. Psychiatric: Behavior: Behavior normal. Thought Content: Thought content normal. Labs Recent Results (from the past 24 hour(s)) CBC WITH DIFF Collection Time: 04/09/20 12:41 PM Result Value Ref Range WBC 5.35 4.20 - 10.70 10*3/L RBC 2.86 (L) 4.26 - 5.52 10*6/L HGB 9.4 (L) 12.2 - 16.4 g/dL HCT 28.9 (L) 38.4 - 49.3 % MCV 101.0 (H) 81.7 - 95.6 fL MCH 32.9 (H) 26.1 - 32.7 pg MCHC 32.5 31.2 - 35.0 g/dL RDW-SD 51.1 38.5 - 51.6 fL RDW-CV 13.8 12.1 - 15.4 % PLT 130 (L) 150 - 328 10*3/L MPV 11.0 9.8 - 13.0 fL NRBC/100 WBC 0.0 0.0 - 10.0 /100 WBCs NRBC x10^3 <0.01 10*3/L GRAN MAT (NEUT) % 73.8 % IMM GRAN % 0.20 % LYMPH % 14.4 % MONO % 8.2 % EOS % 3.0 % BASO % 0.4 % GRAN MAT x10^3(ANC) 3.95 1.99 - 6.95 10*3/uL IMM GRAN x10^3 <0.03 0.00 - 0.06 10*3/uL LYMPH x10^3 0.77 (L) 1.09 - 3.23 10*3/uL MONO x10^3 0.44 0.36 - 1.02 10*3/uL EOS x10^3 0.16 0.06 - 0.53 10*3/uL BASO x10^3 <0.03 0.01 - 0.09 10*3/uL COMP. METABOLIC PANEL (15927) Collection Time: 04/09/20 12:41 PM Result Value Ref Range NA 136 135 - 145 mmol/L K 5.2 (H) 3.5 - 5.0 mmol/L CL 99 98 - 108 mmol/L CO2 TOTAL 28 23 - 31 mmol/L AGAP 9 2 - 16 BUN 50 (H) 7 - 23 mg/dL GLUCOSE 116 (H) 70 - 110 mg/dL CREATININE 5.34 (H) 0.60 - 1.25 mg/dL TOTAL BILI 0.7 0.1 - 1.1 mg/dL CALCIUM 9.5 8.6 - 10.6 mg/dL T PROTEIN 6.9 6.3 - 8.2 g/dL ALBUMIN 3.9 3.5 - 5.0 g/dL ALK PHOS 91 34 - 122 U/L ALTv 27 5 - 50 U/L AST(SGOT) 24 13 - 40 U/L eGFR Calculation (Non-) 10.5 mL/min/1.73m2 eGFR Calculation () 12.7 mL/min/1.73m2 TROPONIN I Collection Time: 04/09/20 12:41 PM Result Value Ref Range TROPONIN I 0.134 (H) <=0.034 ng/mL Imaging Hospital Encounter on 04/09/20 XR CHEST 1 VW Narrative CHEST ONE VIEW HISTORY: Syncope TECHNIQUE: AP view of the chest is obtained. FINDINGS: Increased central pulmonary vascularity is noted along with increased interstitial markings in the lung bases. Heart size is enlarged. Blunting of the left costophrenic angle is seen. Changes of median sternotomy are noted. CONCLUSIONS: 1. Pulmonary edema, cardiomegaly and left pleural effusion Orders and Treatments Orders Placed This Encounter Procedures XR CHEST 1 VW CBC WITH DIFF COMP. METABOLIC PANEL (09033) TROPONIN I URINALYSIS COVID-19 (ID NOW RAPID TESTING) Orders Placed This Encounter Medications NaCl 0.9% (NS) bolus infusion 500 mL Procedures See ED Procedure Note Notes & MDM Patient was evaluated for an emergency medical condition related to Syncope . Differential diagnoses considered by presenting complaints but not limited to: Critical aortic stenosis, NSTEMI, ACS, pulmonary edema, and others. Labs:were ordered, and resulted, any relevant abnormalities were considered. Imaging:Ordered, and resulted, any relevant abnormalities were considered. IV fluids: not indicated Procedures:were not performed. EKG: Time 1233. Rate 98. Sinus rhythm with incomplete left bundle branch block, normal intervals otherwise, ST segment depressions in inferolateral leads. No comparison. Interpreted. Rhythm Strip Interpretation: 95 Normal Sinus Rhythm Pulse Oximetry room air Assessment: 75-year-old male status post syncope x2. Has a 4 out of 6 systolic murmur consistent with aortic stenosis. Given his recent syncopal events with a left heart catheterization he likely has critical aortic stenosis. Additionally has elevated troponin. Patient to be transferred for higher level of care to [place]. Stable prior to transfer. History, physical exam findings, results of visit, differential diagnosis, medication regimens and plan of future care have been considered. Additional MDM may be found in the ED course. Differential diagnosis considered and final disposition made based on information gathered during evaluation and may not be completely ruled out or specifically listed. Vital signs were rechecked before final disposition and determined to be stable prior to transfer.. Diagnosis ICD-10-CM ICD-9-CM 1. Syncope and collapse R55 780.2 2. NSTEMI (non-ST elevated myocardial infarction) I21.4 410.70 3. Aortic valve stenosis, etiology of cardiac valve disease unspecified I35.0 424.1 Disposition & Follow Up ED Disposition None Patient's Medications START taking these medications No medications on file CONTINUE taking these medications which have NOT CHANGED ASPIRIN 81 MG CHEWABLE TABLET Take 81 mg by mouth daily. ATORVASTATIN 20 MG TABLET Take 20 mg by mouth daily. CARVEDILOL 6.25 MG TABLET Take 6.25 mg by mouth daily. CYCLOBENZAPRINE 5 MG TABLET Take 1 tablet by mouth 2 (two) times daily for 30 days. FUROSEMIDE 40 MG TABLET Take 40 mg by mouth daily. GABAPENTIN 300 MG CAPSULE Take 1 capsule by mouth daily for 90 days. LISINOPRIL 2.5 MG TABLET Take 2.5 mg by mouth daily. START taking Modified Medications as Prescribed No medications on file STOP taking these medications No medications on file Alberto Ruelas DO 04/09/2020 12:35 PM ACTIVE COVID-19 PANDEMIC. documented in this encounter Miscellaneous Notes Nursing Note - Sarita Barone RN - 04/18/2020 5:56 PM CSTDischarge instructions provided to patient over diagnosis, medications, importance of follow up appointments and post cath instructions with handout. Pt verbalized understanding and able to teach back.Denies any further questions or concerns at this time. Awaiting ride to come from [place], then will set up transportation. are Plan - Sarita Barone RN - 04/18/2020 9:53 AM CLIENT CARE MANAGER Problem: Falls, Risk of Goal: Absence of falls Outcome: Progressing as expected Problem: Cardiac Output - Decreased Goal: Cardiac output within specified parameters Outcome: Progressing as expected Problem: Pain Goal: Control of pain at or below patient's documented comfort goal Outcome: Progressing as expected Problem: Discharge Planning Goal: Adequate for discharge Outcome: Progressing as expected Goal: Effective communication Outcome: Progressing as expected Problem: Procedure Routine Goal: Absence of post-procedure complications Outcome: Progressing as expected Goal: Knowledge of procedure Outcome: Progressing as expected Problem: Pain Goal: Control of pain at or below patient's documented comfort goal Outcome: Progressing as expected Goal: Reduction in pain sensation Outcome: Progressing as expected Problem: Respiratory Function - Impaired Goal: Able to cough effectively Outcome: Progressing as expected Goal: Adequate oxygenation Outcome: Progressing as expected Goal: Adequate work of breathing Outcome: Progressing as expected Goal: Patent airway Outcome: Progressing as expected are Plan - Jessica Saldivar RN - 04/17/2020 11:02 PM CLIENT CARE MANAGER Problem: Falls, Risk of Goal: Absence of falls Outcome: Progressing as expected Problem: Cardiac Output - Decreased Goal: Cardiac output within specified parameters Outcome: Progressing as expected Problem: Pain Goal: Control of pain at or below patient's documented comfort goal Outcome: Progressing as expected Problem: Pain Goal: Control of pain at or below patient's documented comfort goal Outcome: Progressing as expected Goal: Reduction in pain sensation Outcome: Progressing as expected Problem: Discharge Planning Goal: Adequate for discharge Outcome: Progressing as expected Goal: Effective communication Outcome: Progressing as expected Problem: Respiratory Function - Impaired Goal: Able to cough effectively Outcome: Progressing as expected Goal: Adequate oxygenation Outcome: Progressing as expected Goal: Adequate work of breathing Outcome: Progressing as expected Goal: Patent airway Outcome: Progressing as expected ursing Note - Kee Adams RN - 04/17/2020 8:04 PM CSTHEMODIALYSIS NURSING NOTE Number Hours: 3.0 hours Bath: 2K 3 Calcium (standard dialysate) Heparin: zero Access: left AVF upper arm Net UF: 1000 ml Weight: JODI -- Bed scale wgt is 70.0 kg, wgt earlier today was 67.6 kg -- patient is on Bedrest past heart cath Post BP 148/87 Post Pulse 108 Antibiotics/Medications Given: None Complications/Events of Treatment: Tx tolerated, tx was s/p Heart cath, Bilateral groin drsg c/d/i, pedal pulses + during HD tx. Handoff report completed and attached to Patient Chart Mode of Transport Back to Unit: bed and accompanied by transporter See hemodialysis flowsheet for details of treatment. NT CARE MANAGER Nursing Note - Katlin Christensen RN - 04/17/2020 3:34 PM CSTReport taken from Director Compensation [employer] OFFICER, Pt to be transported to Dialysis from PACU then to Room 921. Report was given to Dialysis are Plan - Katlin Christensen RN - 04/16/2020 4:39 PM CLIENT CARE MANAGER Problem: Falls, Risk of Goal: Absence of falls Outcome: Progressing as expected Problem: Cardiac Output - Decreased Goal: Cardiac output within specified parameters Outcome: Progressing as expected Problem: Pain Goal: Control of pain at or below patient's documented comfort goal Outcome: Progressing as expected Problem: Pain Goal: Control of pain at or below patient's documented comfort goal Outcome: Progressing as expected Goal: Reduction in pain sensation Outcome: Progressing as expected Problem: Discharge Planning Goal: Adequate for discharge Outcome: Progressing as expected Goal: Effective communication Outcome: Progressing as expected Problem: Procedure Routine Goal: Absence of post-procedure complications Outcome: Progressing as expected Goal: Knowledge of procedure Outcome: Progressing as expected Problem: Respiratory Function - Impaired Goal: Able to cough effectively Outcome: Progressing as expected Goal: Adequate oxygenation Outcome: Progressing as expected Goal: Adequate work of breathing Outcome: Progressing as expected Goal: Patent airway Outcome: Progressing as expected NT CARE MANAGER Care Plan - Katlin Christensen RN - 04/15/2020 7:23 PM CLIENT CARE MANAGER Problem: Falls, Risk of Goal: Absence of falls Outcome: Progressing as expected Problem: Cardiac Output - Decreased Goal: Cardiac output within specified parameters Outcome: Progressing as expected Problem: Pain Goal: Control of pain at or below patient's documented comfort goal Outcome: Progressing as expected Problem: Pain Goal: Control of pain at or below patient's documented comfort goal Outcome: Progressing as expected Goal: Reduction in pain sensation Outcome: Progressing as expected Problem: Discharge Planning Goal: Adequate for discharge Outcome: Progressing as expected Goal: Effective communication Outcome: Progressing as expected Problem: Procedure Routine Goal: Absence of post-procedure complications Outcome: Progressing as expected Goal: Knowledge of procedure Outcome: Progressing as expected Problem: Respiratory Function - Impaired Goal: Able to cough effectively Outcome: Progressing as expected Goal: Adequate oxygenation Outcome: Progressing as expected Goal: Adequate work of breathing Outcome: Progressing as expected Goal: Patent airway Outcome: Progressing as expected NT CARE MANAGER Care Plan - Phillip Brewster RN - 04/15/2020 3:53 PM CLIENT CARE MANAGER Problem: Falls, Risk of Goal: Absence of falls Outcome: Progressing as expected Problem: Cardiac Output - Decreased Goal: Cardiac output within specified parameters Outcome: Progressing as expected Problem: Pain Goal: Control of pain at or below patient's documented comfort goal Outcome: Progressing as expected Problem: Discharge Planning Goal: Adequate for discharge Outcome: Progressing as expected Goal: Effective communication Outcome: Progressing as expected Problem: Procedure Routine Goal: Absence of post-procedure complications Outcome: Progressing as expected Goal: Knowledge of procedure Outcome: Progressing as expected Problem: Pain Goal: Control of pain at or below patient's documented comfort goal Outcome: Progressing as expected Goal: Reduction in pain sensation Outcome: Progressing as expected Problem: Respiratory Function - Impaired Goal: Able to cough effectively Outcome: Progressing as expected Goal: Adequate oxygenation Outcome: Progressing as expected Goal: Adequate work of breathing Outcome: Progressing as expected Goal: Patent airway Outcome: Progressing as expected are Plan - Luciana Mosqueda RN - 04/15/2020 1:05 AM CLIENT CARE MANAGER Problem: Falls, Risk of Goal: Absence of falls Outcome: Progressing as expected Problem: Cardiac Output - Decreased Goal: Cardiac output within specified parameters Outcome: Progressing as expected Problem: Pain Goal: Control of pain at or below patient's documented comfort goal Outcome: Progressing as expected Problem: Pain Goal: Control of pain at or below patient's documented comfort goal Outcome: Progressing as expected Goal: Reduction in pain sensation Outcome: Progressing as expected Problem: Discharge Planning Goal: Adequate for discharge Outcome: Progressing as expected Goal: Effective communication Outcome: Progressing as expected Problem: Procedure Routine Goal: Absence of post-procedure complications Outcome: Progressing as expected Goal: Knowledge of procedure Outcome: Progressing as expected Problem: Respiratory Function - Impaired Goal: Able to cough effectively Outcome: Progressing as expected Goal: Adequate oxygenation Outcome: Progressing as expected Goal: Adequate work of breathing Outcome: Progressing as expected Goal: Patent airway Outcome: Progressing as expected are Plan - Kirsten Hines RN - 04/14/2020 9:04 AM CSTHemodialysis plan of care reviewed with patient r/t UF goal and treatment time. Also reviewed possible side effects of hemodialysis such as s/s of muscle cramping, nausea/vomiting, chest pain, headache, bleeding of access site, dizziness, low blood pressure or any other concerns. Patient acknowledge understanding of treatment plan. are Plan - Luciana Mosqueda RN - 04/14/2020 12:43 AM CLIENT CARE MANAGER Problem: Falls, Risk of Goal: Absence of falls Outcome: Progressing as expected Problem: Cardiac Output - Decreased Goal: Cardiac output within specified parameters Outcome: Progressing as expected Problem: Pain Goal: Control of pain at or below patient's documented comfort goal Outcome: Progressing as expected Problem: Pain Goal: Control of pain at or below patient's documented comfort goal Outcome: Progressing as expected Goal: Reduction in pain sensation Outcome: Progressing as expected Problem: Discharge Planning Goal: Adequate for discharge Outcome: Progressing as expected Goal: Effective communication Outcome: Progressing as expected Problem: Procedure Routine Goal: Absence of post-procedure complications Outcome: Progressing as expected Goal: Knowledge of procedure Outcome: Progressing as expected Problem: Respiratory Function - Impaired Goal: Able to cough effectively Outcome: Progressing as expected Goal: Adequate oxygenation Outcome: Progressing as expected Goal: Adequate work of breathing Outcome: Progressing as expected Goal: Patent airway Outcome: Progressing as expected ursing Note - Hussein Celeste RN - 04/12/2020 8:15 PM CSTHEMODIALYSIS NURSING NOTE Number Hours: 4.0 hours Bath: 2K 3 Calcium (standard dialysate) Heparin: zero Access: left AVF upper arm Net UF: 3000 Weight: pre 71.5 kg, post 68.5 kg Post BP 112/47 Post Pulse 87 Antibiotics/Medications Given: none Complications/Events of Treatment: patient tolerated treatment, patient access secured with gauze and tape post dialysis, no bleeding noted at DC Handoff report completed and attached to Patient Chart Mode of Transport Back to Unit: NA - patient done at bedside See hemodialysis flowsheet for details of treatment. are Plan - Hussein Celeste RN - 04/12/2020 4:32 PM CLIENT CARE MANAGER Problem: Procedure Routine Goal: Absence of post-procedure complications Outcome: Progressing as expected Goal: Knowledge of procedure Outcome: Progressing as expected Hemodialysis Plan of care reviewed r/t treatment time & UF goal. Also reviewed possible side effects of HD tx, such as s/s of hypotension, cramping (during tx and at rare times after tx), N/V, CP or any other concerns. Patient acknowledge understanding of treatment plan. are Plan - Bryant Russ RN - 04/12/2020 5:25 AM CLIENT CARE MANAGER Problem: Falls, Risk of Goal: Absence of falls Outcome: Not progressing as expected Problem: Cardiac Output - Decreased Goal: Cardiac output within specified parameters Outcome: Not progressing as expected Problem: Pain Goal: Control of pain at or below patient's documented comfort goal Outcome: Not progressing as expected Problem: Discharge Planning Goal: Adequate for discharge Outcome: Not progressing as expected Goal: Effective communication Outcome: Not progressing as expected Problem: Procedure Routine Goal: Absence of post-procedure complications Outcome: Not progressing as expected Goal: Knowledge of procedure Outcome: Not progressing as expected Problem: Pain Goal: Control of pain at or below patient's documented comfort goal Outcome: Not progressing as expected Goal: Reduction in pain sensation Outcome: Not progressing as expected NT CARE MANAGER Nursing Note - Jennifer Santamaria RN - 04/12/2020 4:05 AM CST 04/12/20 0315 Patient Observation Observations RN heard Pt moving around in room, upon entering room pt leaning on door frame of bathroom. Pt then gasped then slid to floor. RN then reached Pt and called Rapid. Pt then fell face forward into bathroom became unresponsive, code called. 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 Time of ROSC in minutes: (Return of Spontaneous Circulation) 2 mins . Transfered to: MICU/CCU Is this patient a candidate for IH (Induced Hypothermia)? No. Please refer to the resuscitation flow sheet and anesthesia note (if applicable) for further details. Other notes: - Examination during code with Good AE BL with mask ventilation, no blood noticed in mouth - intubated for airway protection 1 min following ROSC when anesthesia arrived. - AC panel collected within 1st round - no medications or shock given. Patrick Bloom Internal Medicine PGY-3 are Plan - Vanda Kate RN - 04/11/2020 7:54 PM CLIENT CARE MANAGER Problem: Falls, Risk of Goal: Absence of falls Outcome: Progressing as expected Problem: Cardiac Output - Decreased Goal: Cardiac output within specified parameters Outcome: Progressing as expected Problem: Pain Goal: Control of pain at or below patient's documented comfort goal Outcome: Progressing as expected Problem: Discharge Planning Goal: Adequate for discharge Outcome: Progressing as expected Goal: Effective communication Outcome: Progressing as expected Problem: Procedure Routine Goal: Absence of post-procedure complications Outcome: Progressing as expected Goal: Knowledge of procedure Outcome: Progressing as expected Problem: Pain Goal: Control of pain at or below patient's documented comfort goal Outcome: Progressing as expected Goal: Reduction in pain sensation Outcome: Progressing as expected Post cath insertion site to Rt groin dressing remains c/d/i, no hematoma, bleeding or swelling noted. Protonix gtt infusing. are Plan - Kirsten Platt RN - 04/10/2020 3:23 PM CLIENT CARE MANAGER Problem: Falls, Risk of Goal: Absence of falls Outcome: Progressing as expected Problem: Cardiac Output - Decreased Goal: Cardiac output within specified parameters Outcome: Progressing as expected Problem: Pain Goal: Control of pain at or below patient's documented comfort goal Outcome: Progressing as expected Problem: Discharge Planning Goal: Adequate for discharge Outcome: Progressing as expected Goal: Effective communication Outcome: Progressing as expected Problem: Procedure Routine Goal: Absence of post-procedure complications Outcome: Progressing as expected Goal: Knowledge of procedure Outcome: Progressing as expected ursing Note - Cadence Clark RN - 04/10/2020 1:50 PM CSTHEMODIALYSIS NURSING NOTE Number Hours: 4.0 hours Bath: Dialysate: 2K 3Ca+ (standard dialysate) Heparin: zero Access: left AVF upper arm Current Access Type: AV fistula Weight: pre 71.kg Post 70kg Net Ultrafiltrate - Post Treatment Net ultrafiltrate (mL) post dialysis treatment: 1700 mL Post BP 138/68, Post P 104 Antibiotics/Medications Given: N/A Complications/Events of Treatment: Tx completed. Blood returned with NS. Purdin pulled and sites held til bleeding stopped. Guaze and tape applied. No further bleeding noted. + thrill/bruit noted. Patient left unit without complaints or distress. Written handoff report completed and attached to the patient chart. Mode of Transport Back to Unit: wheelchair and accompanied by transporter See hemodialysis flowsheet for details of treatment. are Plan - Cadence Clark RN - 04/10/2020 9:58 AM CSTPatient educated treatment as prescribed by turning sander operator regarding current treatment time ordered and fluid removal goals. Educated on initiation, monitoring, and termination of hemodialysis treatment, and possible complications (cramping, lightheadedness, cramping, dizziness, nausea, or headache during and post treatment and notifying healthcare team. Patient verbalized understanding of education. ursing Note - Kirsten Platt RN - 04/10/2020 8:43 AM CSTWill administer morning medications when patient comes back from dialysis. are Plan - Denise Vail RN - 04/09/2020 10:10 PM CLIENT CARE MANAGER Problem: Falls, Risk of Goal: Absence of falls Outcome: Progressing as expected Problem: Cardiac Output - Decreased Goal: Cardiac output within specified parameters Outcome: Progressing as expected Problem: Pain Goal: Control of pain at or below patient's documented comfort goal Outcome: Progressing as expected Problem: Discharge Planning Goal: Adequate for discharge Outcome: Progressing as expected Goal: Effective communication Outcome: Progressing as expected D Nurse Note - Yoli Roberts RN - 04/09/2020 2:43 PM CSTPatient [facility] N-stemi. Patient agrees to transfer/admit plan and verbalized understanding of plan of care, family aware of plan. Patient awake alert, oriented, resp reg unlabored, skin w/d PIV patent, no s/s infiltration noted. No adverse reaction to medications given while in ED. Report given to [facility] personnel. D Nurse Note - Yoli Roberts RN - 04/09/2020 2:26 PM CSTPatient still unable to void urine at this time. D Nurse Note - Lauren Rosales PCT - 04/09/2020 2:00 PM CSTAllegiance contacted for transfer at 1400. ETA 20 min. D Nurse Note - Gerry Vizcaino RN - 04/09/2020 12:50 PM CSTUnable to void at this time. 500cc NS bolus given. Will try after infusion. documented in this encounter Plan of Treatment Date Type Specialty Care Team Description 05/03/2020 Office Visit Cardiology Yuniel Saez M D [address] [facility] [address] [place] [address] [phone] 06/13/2020 Office Visit Cardiology Quique Disla MD [address] [place], [place] [address] [phone] Name Type Priority Associated Diagnoses Date/Ti me EXTRA TUBE PANEL LAB ONLY STAT 04/12/2020 3:31 AM CLIENT CARE MANAGER (RAINBOW DRAW) Name Type Priority Associated Diagnoses Order S chedule URINALYSIS LAB Routine Syncope and collapse ONCE fo r 1 Occurrences starting 2020 until 1 aPTT (for use with LAB Routine FOR FOLLO W-UP Heparin Drip) TESTING until discontinued starting 04/10/2020, 2 completed EKG-12 LEAD ROUTINE HEART STATION Routine Syncope and collapse EVERY 8 HOURS Q8H - First test in Aortic valve STARTING IN 8 HOURS 8 hours stenosis, etiology of for 24 Hours cardiac valve disease starti ng 04/11/2020 unspecified until 1, 1 completed CBC WITHOUT DIFF LAB Routine EVERY 6 THOM RS (START TIME ADJUSTABLE) STA RT TIME ADJUSTABLE for 4 Occurrences starting 2020 until 1, 2 completed AC PANEL 20 + LAB STAT STAT for 1 LACTIC ACID Occurrences starting 2020 until 1 EXTRA TUBE PANEL LAB ONLY STAT STAT for 1 (RAINBOW DRAW) Occurrences starting 2020 until 1 EXTRA TUBE URINE LAB ONLY STAT Once for 1 Occurrences starting 2020 until 1 EXTRA TUBE URINE LAB ONLY STAT Once for 1 CULTURE Occurrences starting 2020 until 1 TROPONIN I LAB JACKELINE EVERY 6 HOURS (START TIME ADJUSTABLE) STA RT TIME ADJUSTABLE for 1 Days starting 04/13/2020 unti l 04/13/2020, 2 completed Prothrombin Time LAB STAT Add-On STAT for 1 (PT) / INR Occurrences starting 2020 until 1 aPTT (for use with LAB Routine FOR FOLLO W-UP Heparin Drip) TESTING until discontinued starting 04/14/2020, 1 completed EKG-12 LEAD ROUTINE HEART STATION Routine Syncope and collapse ONCE for 1 ONCE Occurrences starting 2020 until 1 EKG-12 LEAD ROUTINE HEART STATION STAT Status post balloon ONCE for 1 ONCE aortic valvuloplasty Occurre nces starting 2020 until 1 BASIC METABOLIC LAB Routine EVERY 24 THOM RS PANEL (NA, K, CL, (START SAMAN E CO2, GLUCOSE, BUN, ADJUSTABL E) for 1 CREATININE, CA) Weeks starti ng 04/18/2020 unti l 04/24/2020, 1 completed Magnesium Serum LAB Routine EVERY 24 THOM RS (START TIME ADJUSTABLE) for 1 Weeks starting 04/18/2020 unti l 04/24/2020, 1 completed Health Maintenance Due Date Last Done Comments [...] of this encounter Implants Implanted Type Area Occ Therapist Device Shelf Model / Identifier Expiration Date Ser ial / Lot Dialysis Dialysis Catheter Catheter documented as of this encounter Procedures Procedure Name Priority Date/Time Associated Comments Diagnosis EXTRA TUBE LAV Routine 04/18/2020 5:20 AM CLIENT CARE MANAGER CBC WITHOUT DIFF Routine 04/18/2020 Results for 5:20 AM CLIENT CARE MANAGER this procedure are in the results section. BASIC METABOLIC PANEL (NA, K, Routine 04/18/2020 Results for CL, CO2, GLUCOSE, BUN, 5:20 AM CLIENT CARE MANAGER this CREATININE, CA) procedure are in the results section. MAGNESIUM Routine 04/18/2020 Results for 5:20 AM CLIENT CARE MANAGER this procedure are in the results section. ECHO ROUTINE W/DOPPLER COLOR Routine 04/17/2020 Status post balloon 12:41 PM CLIENT CARE MANAGER aortic valvuloplasty PROTHROMBIN TIME / INR Routine 04/17/2020 Resul ts for 8:41 AM CLIENT CARE MANAGER this procedure are in the results section. CBC WITHOUT DIFF Routine 04/17/2020 Results for 8:41 AM CLIENT CARE MANAGER this procedure are in the results section. BASIC METABOLIC PANEL (NA, K, Routine 04/17/2020 Results for CL, CO2, GLUCOSE, BUN, 5:01 AM CLIENT CARE MANAGER this CREATININE, CA) procedure are in the results section. FOLATE Add-on 04/17/2020 Results for 5:01 AM CLIENT CARE MANAGER this procedure are in the results section. VITAMIN B12, LEVEL Add-on 04/17/2020 Results f or 5:01 AM CLIENT CARE MANAGER this procedure are in the results section. MAGNESIUM Routine 04/17/2020 Results for 5:01 AM CLIENT CARE MANAGER this procedure are in the results section. LAB ONLY COVID INTERPRETATION Routine 04/16/2020 Results for 2:55 PM CLIENT CARE MANAGER this procedure are in the results section. COVID-19 (ID NOW RAPID STAT 04/16/2020 Resul ts for TESTING) 2:55 PM CLIENT CARE MANAGER this procedure are in the results section. CBC WITH DIFF Routine 04/16/2020 Results for 4:33 AM CLIENT CARE MANAGER this procedure are in the results section. BASIC METABOLIC PANEL (NA, K, Routine 04/16/2020 Results for CL, CO2, GLUCOSE, BUN, 4:33 AM CLIENT CARE MANAGER this CREATININE, CA) procedure are in the results section. MAGNESIUM Routine 04/16/2020 Results for 4:33 AM CLIENT CARE MANAGER this procedure are in the results section. CBC WITH DIFF Routine 04/15/2020 Results for 5:54 AM CLIENT CARE MANAGER this procedure are in the results section. ACTIVATED PARTIAL THRMPLAS SAMAN Routine 04/15/2020 Results for 12:25 AM CLIENT CARE MANAGER this procedure are in the results section. BASIC METABOLIC PANEL (NA, K, Routine 04/15/2020 Results for CL, CO2, GLUCOSE, BUN, 12:25 AM CLIENT CARE MANAGER this CREATININE, CA) procedure are in the results section. TROPONIN I Routine 04/15/2020 Results for 12:25 AM CLIENT CARE MANAGER this procedure are in the results section. MAGNESIUM Routine 04/15/2020 Results for 12:25 AM CLIENT CARE MANAGER this procedure are in the results section. ACTIVATED PARTIAL THRMPLAS SAMAN Routine 04/14/2020 Results for 6:51 PM CLIENT CARE MANAGER this procedure are in the results section. TROPONIN I Routine 04/14/2020 Results for 6:51 PM CLIENT CARE MANAGER this procedure are in the results section. TROPONIN I Routine 04/14/2020 Results for 1:31 PM CLIENT CARE MANAGER this procedure are in the results section. EXTRA TUBE SST Routine 04/14/2020 5:34 AM CLIENT CARE MANAGER EXTRA TUBE LT. BLUE Routine 04/14/2020 5:34 AM CLIENT CARE MANAGER ACTIVATED PARTIAL THRMPLAS SAMAN Add-on 04/14/2020 Results for 5:34 AM CLIENT CARE MANAGER this procedure are in the results section. CBC WITH DIFF Routine 04/14/2020 Results for 5:34 AM CLIENT CARE MANAGER this procedure are in the results section. BASIC METABOLIC PANEL (NA, K, Routine 04/14/2020 Results for CL, CO2, GLUCOSE, BUN, 5:34 AM CLIENT CARE MANAGER this CREATININE, CA) procedure are in the results section. TROPONIN I Routine 04/14/2020 Results for 5:34 AM CLIENT CARE MANAGER this procedure are in the results section. MAGNESIUM Routine 04/14/2020 Results for 5:34 AM CLIENT CARE MANAGER this procedure are in the results section. HB ECG ROUTINE & RHYTHM STRIP Routine 04/13/2020 Syncope and 11:35 PM CLIENT CARE MANAGER collapse BASIC METABOLIC PANEL (NA, K, JACKELINE 04/13/2020 Results for CL, CO2, GLUCOSE, BUN, 10:16 PM CLIENT CARE MANAGER this CREATININE, CA) procedure are in the results section. TROPONIN I JACKELINE 04/13/2020 Results for 10:16 PM CLIENT CARE MANAGER this procedure are in the results section. MAGNESIUM JACKELINE 04/13/2020 Results for 10:16 PM CLIENT CARE MANAGER this procedure are in the results section. US RETROPERITONEAL LIMITED Routine 04/13/2020 Syncope and R esults for 4:08 PM CLIENT CARE MANAGER collapse this Hematemesis without procedur e nausea are in the ESRD (end stage results renal disease) on section. dialysis AC PANEL 20 + LACTIC ACID JACKELINE 04/13/2020 Re sults for 3:57 AM CLIENT CARE MANAGER this procedure are in the results section. BASIC METABOLIC PANEL (NA, K, JACKELINE 04/13/2020 Results for CL, CO2, GLUCOSE, BUN, 3:57 AM CLIENT CARE MANAGER this CREATININE, CA) procedure are in the results section. TROPONIN I JACKELINE 04/13/2020 Results for 3:57 AM CLIENT CARE MANAGER this procedure are in the results section. MAGNESIUM JACKELINE 04/13/2020 Results for 3:57 AM CLIENT CARE MANAGER this procedure are in the results section. US ABDOMEN LIMITED Routine 04/13/2020 Thrombocytopenia Resul ts for 12:50 AM CLIENT CARE MANAGER this procedure are in the results section. HB ECG ROUTINE & RHYTHM STRIP JACKELINE 04/12/2020 Syncope and 10:10 PM CLIENT CARE MANAGER collapse NSTEMI (non-ST elevated myocardial infarction) AC PANEL 20 + LACTIC ACID JACKELINE 04/12/2020 Re sults for 8:43 PM CLIENT CARE MANAGER this procedure are in the results section. CBC WITHOUT DIFF Routine 04/12/2020 Results for 8:43 PM CLIENT CARE MANAGER this procedure are in the results section. BASIC METABOLIC PANEL (NA, K, JACKELINE 04/12/2020 Results for CL, CO2, GLUCOSE, BUN, 8:43 PM CLIENT CARE MANAGER this CREATININE, CA) procedure are in the results section. TROPONIN I JACKELINE 04/12/2020 Results for 8:43 PM CLIENT CARE MANAGER this procedure are in the results section. MAGNESIUM JACKELINE 04/12/2020 Results for 8:43 PM CLIENT CARE MANAGER this procedure are in the results section. XR KUB JACKELINE 04/12/2020 Syncope and Results for 2:43 PM CLIENT CARE MANAGER collapse this procedure are in the results section. EGD (ENDO) Routine 04/12/2020 1:40 PM CLIENT CARE MANAGER ESOPHAGOGASTRODUODENOSCOPY Level 2 04/12/2020 Hematemesis wi thout (within 6 1:25 PM CLIENT CARE MANAGER nausea hours) AC PANEL 20 + LACTIC ACID JACKELINE 04/12/2020 Re sults for 10:01 AM CLIENT CARE MANAGER this procedure are in the results section. ECHO ROUTINE W/DOPPLER COLOR STAT 04/12/2020 Syncope and 9:37 AM CLIENT CARE MANAGER collapse XR KUB JACKELINE 04/12/2020 Syncope and Results for 9:27 AM CLIENT CARE MANAGER collapse this procedure are in the results section. AC PANEL 20 + LACTIC ACID JACKELINE 04/12/2020 Re sults for 5:06 AM CLIENT CARE MANAGER this procedure are in the results section. MRSA / MSSA SCREEN BY PCR, Routine 04/12/2020 R esults for NARES 4:48 AM CLIENT CARE MANAGER this procedure are in the results section. EXTRA TUBE RED JACKELINE 04/12/2020 4:48 AM CLIENT CARE MANAGER EXTRA TUBE BLOOD CULTURE STAT 04/12/2020 4:48 AM CLIENT CARE MANAGER EXTRA TUBE ORANGE STAT 04/12/2020 4:48 AM CLIENT CARE MANAGER EXTRA TUBE LT. BLUE STAT 04/12/2020 4:48 AM CLIENT CARE MANAGER ACTIVATED PARTIAL THRMPLAS SAMAN STAT 04/12/2020 Results for 4:48 AM CLIENT CARE MANAGER this procedure are in the results section. PROTHROMBIN TIME / INR STAT 04/12/2020 Resul ts for 4:48 AM CLIENT CARE MANAGER this procedure are in the results section. CBC WITH DIFF STAT 04/12/2020 Results for 4:48 AM CLIENT CARE MANAGER this procedure are in the results section. BASIC METABOLIC PANEL (NA, K, STAT 04/12/2020 Results for CL, CO2, GLUCOSE, BUN, 4:48 AM CLIENT CARE MANAGER this CREATININE, CA) procedure are in the results section. HEPATIC FUNCTION PANEL (30986) STAT 04/12/2020 Results for (ALB,T.PRO,BILI 4:48 AM CLIENT CARE MANAGER this T,BU/BC,ALT,AST,ALK PHOS) pr ocedure are in the results section. MAGNESIUM STAT 04/12/2020 Results for 4:48 AM CLIENT CARE MANAGER this procedure are in the results section. LACTATE DEHYDROGENASE STAT 04/12/2020 Result s for 4:48 AM CLIENT CARE MANAGER this procedure are in the results section. PHOSPHORUS STAT 04/12/2020 Results for 4:48 AM CLIENT CARE MANAGER this procedure are in the results section. XR CHEST 1 VW STAT 04/12/2020 Syncope and Results for 3:55 AM CLIENT CARE MANAGER collapse this procedure are in the results section. CBC WITH DIFF STAT 04/12/2020 Results for 3:31 AM CLIENT CARE MANAGER this procedure are in the results section. FIBRINOGEN Routine 04/12/2020 Results for 3:30 AM CLIENT CARE MANAGER this procedure are in the results section. PROTHROMBIN TIME / INR Routine 04/12/2020 Resul ts for 3:30 AM CLIENT CARE MANAGER this procedure are in the results section. BASIC METABOLIC PANEL (NA, K, Routine 04/12/2020 Results for CL, CO2, GLUCOSE, BUN, 3:30 AM CLIENT CARE MANAGER this CREATININE, CA) procedure are in the results section. TROPONIN I Add-on 04/12/2020 Results for 3:30 AM CLIENT CARE MANAGER this procedure are in the results section. MAGNESIUM Routine 04/12/2020 Results for 3:30 AM CLIENT CARE MANAGER this procedure are in the results section. HB ECG ROUTINE & RHYTHM STRIP Routine 04/12/2020 Syncope and 3:29 AM CLIENT CARE MANAGER collapse Aortic valve stenosis, etiology of cardiac valve disease unspecified AC PANEL 20 + LACTIC ACID Routine 04/12/2020 Re sults for 3:29 AM CLIENT CARE MANAGER this procedure are in the results section. POCT GLUCOSE (AUTOMATED) Routine 04/12/2020 Res ults for 3:25 AM CLIENT CARE MANAGER this procedure are in the results section. HB ECG ROUTINE & RHYTHM STRIP STAT 04/12/2020 Syncope and 2:08 AM CLIENT CARE MANAGER collapse CBC WITHOUT DIFF Routine 04/12/2020 Results for 12:22 AM CLIENT CARE MANAGER this procedure are in the results section. ABORH CONFIRMATION Routine 04/11/2020 Results f or 2:02 PM CLIENT CARE MANAGER this procedure are in the results section. HB ECG ROUTINE & RHYTHM STRIP STAT 04/11/2020 Syncope and 1:50 PM CLIENT CARE MANAGER collapse Aortic valve stenosis, etiology of cardiac valve disease unspecified HB ABO GROUPING STAT 04/11/2020 Results for 1:25 PM CLIENT CARE MANAGER this procedure are in the results section. FIBRINOGEN STAT Add-On 04/11/2020 Results for 1:07 PM CLIENT CARE MANAGER this procedure are in the results section. ACTIVATED PARTIAL THRMPLAS SAMAN Add-on 04/11/2020 Results for 1:07 PM CLIENT CARE MANAGER this procedure are in the results section. PROTHROMBIN TIME / INR JACKELINE 04/11/2020 Resul ts for 1:07 PM CLIENT CARE MANAGER this procedure are in the results section. CBC WITHOUT DIFF JACKELINE 04/11/2020 Results for 1:07 PM CLIENT CARE MANAGER this procedure are in the results section. ACTIVATED PARTIAL THRMPLAS SAMAN Routine 04/11/2020 Results for 12:48 AM CLIENT CARE MANAGER this procedure are in the results section. BASIC METABOLIC PANEL (NA, K, Routine 04/11/2020 Results for CL, CO2, GLUCOSE, BUN, 12:48 AM CLIENT CARE MANAGER this CREATININE, CA) procedure are in the results section. MAGNESIUM Routine 04/11/2020 Results for 12:48 AM CLIENT CARE MANAGER this procedure are in the results section. ECHO ROUTINE W/DOPPLER COLOR Routine 04/10/2020 Syncope and 3:20 PM CLIENT CARE MANAGER collapse ACTIVATED PARTIAL THRMPLAS SAMAN Routine 04/10/2020 Results for 2:43 PM CLIENT CARE MANAGER this procedure are in the results section. PROTHROMBIN TIME / INR Routine 04/10/2020 Resul ts for 2:43 PM CLIENT CARE MANAGER this procedure are in the results section. POCT GLUCOSE (AUTOMATED) Routine 04/10/2020 Res ults for 11:25 AM CLIENT CARE MANAGER this procedure are in the results section. VITAMIN D, 25-OH Routine 04/10/2020 Results for 11:23 AM CLIENT CARE MANAGER this procedure are in the results section. INTACT PTH CALCIUM GROUP Routine 04/10/2020 Res ults for 11:22 AM CLIENT CARE MANAGER this procedure are in the results section. HEPATITIS B SURFACE ANTIGEN Add-on 04/10/2020 Results for 5:05 AM CLIENT CARE MANAGER this procedure are in the results section. HEPATITIS B SURFACE ANTIBODY Add-on 04/10/2020 Results for 5:05 AM CLIENT CARE MANAGER this procedure are in the results section. IRON PANEL Add-on 04/10/2020 Results for 5:05 AM CLIENT CARE MANAGER this procedure are in the results section. FREE T4 Routine 04/10/2020 Results for 5:05 AM CLIENT CARE MANAGER this procedure are in the results section. BASIC METABOLIC PANEL (NA, K, Routine 04/10/2020 Results for CL, CO2, GLUCOSE, BUN, 5:04 AM CLIENT CARE MANAGER this CREATININE, CA) procedure are in the results section. MAGNESIUM Routine 04/10/2020 Results for 5:04 AM CLIENT CARE MANAGER this procedure are in the results section. DISCLOSURE AND CONSENT, Routine 04/10/2020 MEDICAL AND SURGICAL 12:01 AM CLIENT CARE MANAGER PROCEDURES THYROID STIMULATING HORMONE Routine 04/09/2020 Results for 11:13 PM CLIENT CARE MANAGER this procedure are in the results section. TROPONIN I Routine 04/09/2020 Results for 11:13 PM CLIENT CARE MANAGER this procedure are in the results section. ACTIVATED PARTIAL THRMPLAS SAMAN Routine 04/09/2020 Results for 6:18 PM CLIENT CARE MANAGER this procedure are in the results section. PROTHROMBIN TIME / INR STAT 04/09/2020 Resul ts for 6:18 PM CLIENT CARE MANAGER this procedure are in the results section. FREE T3 Add-on 04/09/2020 Results for 4:59 PM CLIENT CARE MANAGER this procedure are in the results section. TROPONIN I STAT 04/09/2020 Results for 4:59 PM CLIENT CARE MANAGER this procedure are in the results section. HB ECG ROUTINE & RHYTHM STRIP STAT 04/09/2020 NSTEMI (non -ST 4:50 PM CLIENT CARE MANAGER elevated myocardial infarction) LAB ONLY COVID INTERPRETATION Routine 04/09/2020 Syncope and Results for 1:36 PM CLIENT CARE MANAGER collapse this procedure are in the results section. COVID-19 (ID NOW RAPID STAT 04/09/2020 Syncope and Resul ts for TESTING) 1:36 PM CLIENT CARE MANAGER collapse this procedure are in the results section. XR CHEST 1 VW Routine 04/09/2020 Syncope and Results for 12:50 PM CLIENT CARE MANAGER collapse this procedure are in the results section. N-TERMINAL PRO-BNP Add-on 04/09/2020 Results f or 12:41 PM CLIENT CARE MANAGER this procedure are in the results section. GLYCOSYLATED HEMOGLOBIN (A1C) Add-on 04/09/2020 Results for 12:41 PM CLIENT CARE MANAGER this procedure are in the results section. CBC WITH DIFF STAT 04/09/2020 Syncope and Results for 12:41 PM CLIENT CARE MANAGER collapse this procedure are in the results section. COMP. METABOLIC PANEL (11802) STAT 04/09/2020 Syncope and Results for 12:41 PM CLIENT CARE MANAGER collapse this procedure are in the results section. THYROID STIMULATING HORMONE Add-on 04/09/2020 Results for 12:41 PM CLIENT CARE MANAGER this procedure are in the results section. TROPONIN I STAT 04/09/2020 Syncope and Results for 12:41 PM CLIENT CARE MANAGER collapse this procedure are in the results section. MAGNESIUM Add-on 04/09/2020 Results for 12:41 PM CLIENT CARE MANAGER this procedure are in the results section. HB ECG ROUTINE & RHYTHM STRIP Routine 04/09/2020 Syncope and 12:33 PM CLIENT CARE MANAGER collapse NOTICE OF PRIVACY PRACTICES Routine 04/09/2020 12:18 PM CLIENT CARE MANAGER VACCINATION OF A MINOR Routine 04/09/2020 12:18 PM CLIENT CARE MANAGER CONSENT/REFUSAL FOR DIAGNOSIS Routine 04/09/2020 AND TREATMENT 12:18 PM CLIENT CARE MANAGER AGREEMENTS AUTHORIZATIONS AND Routine 04/09/2020 IRREVOCABLE ASSIGNMENTS (FORM 12:01 AM CLIENT CARE MANAGER 2000) documented in this encounter Results EXTRA TUBE LAV (04/18/2020 5:20 AM CLIENT CARE MANAGER) Specimen Blood Performing Organization Address City/State/Zipcode Phone Number [facility] CLIA: [id number] [place] [address] [place] [address] CBC WITHOUT DIFF (04/18/2020 5:20 AM CLIENT CARE MANAGER) Pathologist Sig nature WBC 5.06 4.20 - 10.70 [facility] 10*3/L SERVICES RBC 2.35 (L) 4.26 - 5.52 [facility] 10*6/L SERVICES HGB 7.7 (L) 12.2 - 16.4 g/dL [facility] HCT 23.3 (L) 38.4 - 49.3 % [facility] MCH 32.8 (H) 26.1 - 32.7 pg [facility] MCV 99.1 (H) 81.7 - 95.6 fL [facility] MCHC 33.0 31.2 - 35.0 g/dL [facility] PLT 149 (L) 150 - 328 10*3/L [facility] MPV 11.0 9.8 - 13.0 fL [facility] RDW-CV 13.8 12.1 - 15.4 % [facility] RDW-SD 50.1 38.5 - 51.6 fL [facility] NRBC x10^3 <0.01 10*3/L [facility] NRBC/100 WBC 0.0 0.0 - 10.0 /100 [facility] WBCs SERVICES IPF % [facility] Specimen Blood - ARM, RIGHT Performing Organization Address City/[facility]/Zipcode Phone Number [facility] CLIA: [id number] [place] [address] [place] [address] Magnesium Serum (04/18/2020 5:20 AM CLIENT CARE MANAGER) Pathologist Sig nature MAGNESIUM 2.1 1.7 - 2.4 mg/dL [facility] Specimen Blood - ARM, RIGHT Performing Organization Address [facility]/Zipcode Phone Number [facility] CLIA: [id number] [place] [address] [place] [address] BASIC METABOLIC PANEL (NA, K, CL, CO2, GLUCOSE, BUN, CREATININE, CA) (04/18/2020 5:20 AM CLIENT CARE MANAGER) NA 135 135 - 145 [facility] mmol/L SERVICES K 3.9 3.5 - 5.0 [facility] mmol/L SERVICES CL 98 98 - 108 mmol/L [facility] CO2 TOTAL 27 23 - 31 mmol/L [facility] AGAP 10 2 - 16 [facility] BUN 25 (H) 7 - 23 mg/dL [facility] GLUCOSE 111 (H) 70 - 110 mg/dL [facility] CREATININE 4.11 (H) 0.60 - 1.25 [facility] mg/dL SERVICES CALCIUM 9.1 8.6 - 10.6 [facility] mg/dL SERVICES eGFR Calculation 14.2 mL/min/1.73m2 [facility] (Non- SERVICES [place]) eGFR Calculation 17.2 mL/min/1.73m2 [facility] () SERVICES Specimen Blood - ARM, RIGHT Narrative Performed At Association of Glomerular Filtration Rate (GFR) and St aging [facility] of Kidney Disease* + + +------- ------ + | GFR (mL/min/1.73 m2) | With Kidney Damage | Wi thout Kidney Damage + + +------- ------ + | >90 | Stage one | Normal + + +------- ------ + | 60-89 | Stage two | Decreased GFR + + +------- ------ + | 30-59 | Stage three | Stage three + + +------- ------ + | 15-29 | Stage four | Stage four + + +------- ------ + | <15 (or dialysis) | Stage five | Stage five + + +------- ------ + *Each stage assumes the associated GFR level has been in effect for at least three months. Stages 1 to 5, wit h or without kidney disease, indicate chronic kidney disease. Notes: Determination of stages one and two (with eGFR >59mL/min/1.73 m2) requires estimation of kidney damag e for at least three months as defined by structural or func tional abnormalities of the kidney, manifested by either: Pathological abnormalities or Markers of kidney damage (including abnormalities in the composition of the blo od or urine or abnormalities in imaging tests) . Performing Organization Address City/[facility]ode Phone Number [facility] CLIA: [id number] [place] [address] [phone] [facility] [place] [place] CBC WITHOUT DIFF (04/17/2020 8:41 AM CLIENT CARE MANAGER) [facility] Sig [facility] WBC 5.89 4.20 - 10.70 [facility] 10*3/L SERVICES RBC 2.35 (L) 4.26 - 5.52 [facility] 10*6/L SERVICES HGB 7.9 (L) 12.2 - 16.4 g/dL [facility] HCT 23.6 (L) 38.4 - 49.3 % [facility] MCH 33.6 (H) 26.1 - 32.7 pg [facility] MCV 100.4 (H) 81.7 - 95.6 fL [facility] MCHC 33.5 31.2 - 35.0 g/dL [facility] PLT 170 150 - 328 10*3/L [facility] MPV 11.0 9.8 - 13.0 fL [facility] RDW-CV 14.1 12.1 - 15.4 % [facility] RDW-SD 50.9 38.5 - 51.6 fL [facility] NRBC x10^3 <0.01 10*3/L [facility] NRBC/100 WBC 0.0 0.0 - 10.0 /100 [facility] WBCs SERVICES IPF % [facility] Specimen Blood - ARM, RIGHT Performing Organization Address [facility] Phone Number [facility] CLIA: [id number] [place] [address] [phone] [facility] [place] [place] PROTHROMBIN TIME / INR (04/17/2020 8:41 AM CLIENT CARE MANAGER) PROTIME PATIENT 14.3 (H) 10.1 - 12.6 [facility] Seconds SERVICES INR 1.3Comment: Normal [facility] INR <1.1; Warfarin SERVICES Therapeutic range 2.0 to 3.0 or 2.5 to 3.5, depending upon the indications. Specimen Blood - ARM, RIGHT Performing Organization Address City/[facility]/Zipcode Phone Number [facility] CLIA: [id number] [place] [address] [place] [address] FOLATE (04/17/2020 5:01 AM CLIENT CARE MANAGER) Pathologist Sig nature FOLATE SER 8.1 3.0 - 20.0 ng/mL [facility] Specimen Blood - VENOUS Performing Organization Address [facility] Phone Number [facility] CLIA: [id number] [place] [address] [place] [address] VITAMIN B12, LEVEL (04/17/2020 5:01 AM CLIENT CARE MANAGER) Pathologist Sig nature VIT B12 435 240 - 930 pg/mL [facility] Specimen Blood - VENOUS Narrative Performed At Biotin has been reported to cause a positive bias, int erpret [facility] results relative to patient's use of biotin. Performing Organization Address [facility] Phone Number [facility] CLIA: [id number] [place] [address] [place] [address] BASIC METABOLIC PANEL (NA, K, CL, CO2, GLUCOSE, BUN, CREATININE, CA) (04/17/2020 5:01 AM CLIENT CARE MANAGER) NA 137 135 - 145 [facility] mmol/L SERVICES K 4.8 3.5 - 5.0 [facility] mmol/L SERVICES CL 99 98 - 108 mmol/L [facility] CO2 TOTAL 26 23 - 31 mmol/L [facility] AGAP 12 2 - 16 [facility] BUN 48 (H) 7 - 23 mg/dL [facility] GLUCOSE 101 70 - 110 mg/dL [facility] CREATININE 7.19 (H) 0.60 - 1.25 [facility] mg/dL SERVICES CALCIUM 8.8 8.6 - 10.6 [facility] mg/dL SERVICES eGFR Calculation 7.5 mL/min/1.73m2 [facility] (Non- SERVICES [place]) eGFR Calculation 9.0 mL/min/1.73m2 [facility] () SERVICES Specimen Blood - VENOUS Narrative Performed At Association of Glomerular Filtration Rate (GFR) and St aging [facility] of Kidney Disease* + + +------- ------ + | GFR (mL/min/1.73 m2) | With Kidney Damage | Wi thout Kidney Damage + + +------- ------ + | >90 | Stage one | Normal + + +------- ------ + | 60-89 | Stage two | Decreased GFR + + +------- ------ + | 30-59 | Stage three | Stage three + + +------- ------ + | 15-29 | Stage four | Stage four + + +------- ------ + | <15 (or dialysis) | Stage five | Stage five + + +------- ------ + *Each stage assumes the associated GFR level has been in effect for at least three months. Stages 1 to 5, wit h or without kidney disease, indicate chronic kidney disease. Notes: Determination of stages one and two (with eGFR >59mL/min/1.73 m2) requires estimation of kidney damag e for at least three months as defined by structural or func tional abnormalities of the kidney, manifested by either: Pathological abnormalities or Markers of kidney damage (including abnormalities in the composition of the blo od or urine or abnormalities in imaging tests) . Performing Organization Address City/[facility] Centercode Phone Number [facility] CLIA: [id number] [place] [address] [place] [address] Magnesium Serum (04/17/2020 5:01 AM CLIENT CARE MANAGER) Pathologist Sig nature MAGNESIUM 2.2 1.7 - 2.4 mg/dL [facility] Specimen Blood - VENOUS Performing Organization Address City/[facility]/Zipcode Phone Number [facility] CLIA: [id number] [place] [address] [phone] [facility] [place] [place] LAB ONLY COVID INTERPRETATION (04/16/2020 2:55 PM CLIENT CARE MANAGER) COVID DMT Interpretation/Recommendations: [facility] Interpretation SERVICES Molecular NAAT Tests for Active Infection with the CONSTANTINO S-CoV-2 Virus: This patient has tested nega tive on three occasions for the SARS-CoV-2 virus that causes COVID-19 illness. This most likely indicates that the patient does not have an active infection with the SARS-CoV -2 virus, especially if thes e tests coincide with the patient's current presentation. However, infection is not completely ruled out as the false negative rate for molecular NAAT testing using a nasopha ryngeal sample can be up to 30%, mostly dependent on the timing of sample collection in relation to illness onset and any deficiencies in sampling techniques. If the patient has symptoms concerning for COVID-19 illness, a repeat N AAT test (PCR, Rapid ID Now, etc.) should be performed, at which time the SARS-CoV-2 virus - if present - may have reached a detectable viral load (usually peaking by the end of the first week of symptoms). Tests for IgM and/or IgG Antibodies to SARS-CoV-2 Viru s: Testing for IgM and IgG anti bodies 1-3 weeks after illness onset will indicate whether the patient has produced antibodies to the virus. At this time, it is not known if the production of antibodies - s pecifically IgG antibodies - indicates whether the patient is immune to future infections with the SARS-CoV-2 virus. Interpretation Result Comments: These interpretation comment s are based upon all COVID-19 testing the patient has had at [facility], including molecular NAAT testing (more commonly known as PCR testing and Rapid ID Now testing) and antibody testing. It does not take i nto account any testing that a patient has had outside of the [facility] medical record. COVID Results SARS-CoV-2 Rapid ID NOW (no units) [facility] Date Value SERVICES 04/16/2020 Not Detected 04/09/2020 Not Detected Specimen Swab - NASOPHARYNGEAL SWAB Performing Organization Address City/State/Zipcode Phone Number [facility] CLIA: [id number] [place] [address] [place] [address] COVID-19 (ID NOW RAPID TESTING) (04/16/2020 2:55 PM CLIENT CARE MANAGER) SARS-CoV-2 Rapid ID Not Detected Not Detected [facility] NOW SERVICES Specimen Swab - NASOPHARYNGEAL SWAB Narrative Performed At ID NOW COVID-19 Assay is an isothermal nucleic acid [facility] amplification test intended for the qualitative detect ion of nucleic acid from SARS-CoV-2 viral RNA in nasopharynge al (PRODUCE SPECIALIST) specimens. It is used under Emergency Use Authori zation (EUA) by FDA. The limit of detection (LOD) of the assa y is 125 Genome Equivalents/mL. A positive result is indicative of the presence of SARS-CoV-2 RNA. Clinical correlation with patient hi story and other diagnostic information is necessary to deter mine patient infection status. A negative (Not Detected) result does not preclude SARS-CoV-2 infection. In patients with clinical sympto ms and other tests that are consistent with SARS-CoV-2 infect ion, negative results should be treated as presumptive nega tive and a new specimen should be tested with alternative P CR molecular test. Invalid: Please collect a new specimen for repeat benigno ent testing if clinically indicated. Performing Organization Address City/State/Zipcode Phone Number [facility] CLIA: [id number] [place] [address] [place] [address] BASIC METABOLIC PANEL (NA, K, CL, CO2, GLUCOSE, BUN, CREATININE, CA) (04/16/2020 4:33 AM CLIENT CARE MANAGER) NA 135 135 - 145 [facility] mmol/L SERVICES K 4.7 3.5 - 5.0 [facility] mmol/L SERVICES CL 98 98 - 108 mmol/L [facility] CO2 TOTAL 24 23 - 31 mmol/L [facility] AGAP 13 2 - 16 [facility] BUN 39 (H) 7 - 23 mg/dL [facility] GLUCOSE 115 (H) 70 - 110 mg/dL [facility] CREATININE 5.75 (H) 0.60 - 1.25 [facility] mg/dL SERVICES CALCIUM 9.2 8.6 - 10.6 [facility] mg/dL SERVICES eGFR Calculation 9.7 mL/min/1.73m2 [facility] (Non- SERVICES [place]) eGFR Calculation 11.7 mL/min/1.73m2 [facility] () SERVICES Specimen Blood - VENOUS Narrative Performed At Association of Glomerular Filtration Rate (GFR) and St aging [facility] of Kidney Disease* + + +------- ------ + | GFR (mL/min/1.73 m2) | With Kidney Damage | Wi thout Kidney Damage + + +------- ------ + | >90 | Stage one | Normal + + +------- ------ + | 60-89 | Stage two | Decreased GFR + + +------- ------ + | 30-59 | Stage three | Stage three + + +------- ------ + | 15-29 | Stage four | Stage four + + +------- ------ + | <15 (or dialysis) | Stage five | Stage five + + +------- ------ + *Each stage assumes the associated GFR level has been in effect for at least three months. Stages 1 to 5, wit h or without kidney disease, indicate chronic kidney disease. Notes: Determination of stages one and two (with eGFR >59mL/min/1.73 m2) requires estimation of kidney damag e for at least three months as defined by structural or func tional abnormalities of the kidney, manifested by either: Pathological abnormalities or Markers of kidney damage (including abnormalities in the composition of the blo od or urine or abnormalities in imaging tests) . Performing Organization Address City/[facility] Phone Number [facility] CLIA: [id number] [place] [address] [place] [address] Magnesium Serum (04/16/2020 4:33 AM CLIENT CARE MANAGER) [facility] MAGNESIUM 2.3 1.7 - 2.4 mg/dL [facility] Specimen Blood - VENOUS Performing Organization Address [facility] Phone Number [facility] CLIA: [id number] [place] [address] [phone] [facility] [place] [place] CBC WITH DIFF (04/16/2020 4:33 AM CLIENT CARE MANAGER) Pathologist Sig [facility] WBC 5.61 4.20 - 10.70 [facility] 10*3/L SERVICES RBC 2.50 (L) 4.26 - 5.52 [facility] 10*6/L SERVICES HGB 8.2 (L) 12.2 - 16.4 [facility] g/dL SERVICES HCT 24.9 (L) 38.4 - 49.3 % [facility] MCV 99.6 (H) 81.7 - 95.6 fL [facility] MCH 32.8 (H) 26.1 - 32.7 pg [facility] MCHC 32.9 31.2 - 35.0 [facility] g/dL SERVICES RDW-SD 50.9 38.5 - 51.6 fL [facility] RDW-CV 14.1 12.1 - 15.4 % [facility] PLT 148 (L) 150 - 328 [facility] 10*3/L SERVICES MPV 11.0 9.8 - 13.0 fL [facility] NRBC/100 WBC 0.0 0.0 - 10.0 /100 [facility] WBCs SERVICES NRBC x10^3 <0.01 10*3/L [facility] GRAN MAT (NEUT) % 75.0 % [facility] IMM GRAN % 0.20 % [facility] LYMPH % 15.2 % [facility] MONO % 8.7 % [facility] EOS % 0.7 % [facility] BASO % 0.2 % [facility] GRAN MAT x10^3(ANC) 4.21 1.99 - 6.95 [facility] 10*3/uL SERVICES IMM GRAN x10^3 <0.03 0.00 - 0.06 [facility] 10*3/uL SERVICES LYMPH x10^3 0.85 (L) 1.09 - 3.23 [facility] 10*3/uL SERVICES MONO x10^3 0.49 0.36 - 1.02 [facility] 10*3/uL SERVICES EOS x10^3 0.04 (L) 0.06 - 0.53 [facility] 10*3/uL SERVICES BASO x10^3 <0.03 0.01 - 0.09 [facility] 10*3/uL SERVICES Specimen Blood - VENOUS Performing Organization Address City/State/Zipcode Phone Number [facility] CLIA: [id number] [place] [address] [place] [address] CBC WITH DIFF (04/15/2020 5:54 AM CLIENT CARE MANAGER) [facility] nature WBC 5.38 4.20 - 10.70 [facility] LABORATORY 10*3/L SERVICES RBC 2.27 (L) 4.26 - 5.52 [facility] 10*6/L SERVICES HGB 7.5 (L) 12.2 - 16.4 [facility] g/dL SERVICES HCT 22.5 (L) 38.4 - 49.3 % [facility] MCV 99.1 (H) 81.7 - 95.6 fL [facility] MCH 33.0 (H) 26.1 - 32.7 pg [facility] MCHC 33.3 31.2 - 35.0 [facility] g/dL SERVICES RDW-SD 50.7 38.5 - 51.6 fL [facility] RDW-CV 14.1 12.1 - 15.4 % [facility] PLT 120 (L) 150 - 328 [facility] 10*3/L SERVICES MPV 11.2 9.8 - 13.0 fL [facility] NRBC/100 WBC 0.0 0.0 - 10.0 /100 [facility] WBCs SERVICES NRBC x10^3 <0.01 10*3/L [facility] GRAN MAT (NEUT) % 78.8 % [facility] IMM GRAN % 0.40 % [facility] LYMPH % 11.7 % [facility] MONO % 7.8 % [facility] EOS % 1.1 % [facility] BASO % 0.2 % [facility] GRAN MAT x10^3(ANC) 4.24 1.99 - 6.95 [facility] 10*3/uL SERVICES IMM GRAN x10^3 <0.03 0.00 - 0.06 [facility] 10*3/uL SERVICES LYMPH x10^3 0.63 (L) 1.09 - 3.23 [facility] 10*3/uL SERVICES MONO x10^3 0.42 0.36 - 1.02 [facility] 10*3/uL SERVICES EOS x10^3 0.06 0.06 - 0.53 [facility] 10*3/uL SERVICES BASO x10^3 <0.03 0.01 - 0.09 [facility] 10*3/uL SERVICES Specimen Blood - ARM, RIGHT Performing Organization Address City/State/Zipcode Phone Number [facility] CLIA: [id number] [place], [place] [id number] [address] [place] [address] BASIC METABOLIC PANEL (NA, K, CL, CO2, GLUCOSE, BUN, CREATININE, CA) (04/15/2020 12:25 AM CLIENT CARE MANAGER) NA 136 135 - 145 [facility] mmol/L SERVICES K 3.8 3.5 - 5.0 [facility] mmol/L SERVICES CL 97 (L) 98 - 108 mmol/L [facility] CO2 TOTAL 30 23 - 31 mmol/L [facility] AGAP 9 2 - 16 [facility] BUN 25 (H) 7 - 23 mg/dL [facility] GLUCOSE 143 (H) 70 - 110 mg/dL [facility] CREATININE 3.74 (H) 0.60 - 1.25 [facility] mg/dL SERVICES CALCIUM 9.1 8.6 - 10.6 [facility] mg/dL SERVICES eGFR Calculation 15.9 mL/min/1.73m2 [facility] (Non- SERVICES [place]) eGFR Calculation 19.2 mL/min/1.73m2 [facility] () SERVICES Specimen Blood - ARM, RIGHT Narrative Performed At Association of Glomerular Filtration Rate (GFR) and St aging [facility] of Kidney Disease* + + +------- ------ + | GFR (mL/min/1.73 m2) | With Kidney Damage | Wi thout Kidney Damage + + +------- ------ + | >90 | Stage one | Normal + + +------- ------ + | 60-89 | Stage two | Decreased GFR + + +------- ------ + | 30-59 | Stage three | Stage three + + +------- ------ + | 15-29 | Stage four | Stage four + + +------- ------ + | <15 (or dialysis) | Stage five | Stage five + + +------- ------ + *Each stage assumes the associated GFR level has been in effect for at least three months. Stages 1 to 5, wit h or without kidney disease, indicate chronic kidney disease. Notes: Determination of stages one and two (with eGFR >59mL/min/1.73 m2) requires estimation of kidney damag e for at least three months as defined by structural or func tional abnormalities of the kidney, manifested by either: Pathological abnormalities or Markers of kidney damage (including abnormalities in the composition of the blo od or urine or abnormalities in imaging tests) . Performing Organization Address City/State/Zipcode Phone Number [facility] CLIA: [id number] [place], [place] [address] [address] [place] [address] Magnesium Serum (04/15/2020 12:25 AM CLIENT CARE MANAGER) [facility] MAGNESIUM 2.0 1.7 - 2.4 mg/dL [facility] Specimen Blood - ARM, RIGHT Performing Organization Address City/[facility]/Zipcode Phone Number [facility] CLIA: [id number] [place] [address] [phone] [facility] [place] TROPONIN I (04/15/2020 12:25 AM CLIENT CARE MANAGER) Pathologist Sig [facility] TROPONIN I 3.190 (H) <=0.034 ng/mL [facility] Specimen Blood - ARM, RIGHT Narrative Performed At Equal or Less than 0.034 ng/ml---Normal [facility] Note: Cardiac troponin begins to rise 3-4 hours after the onset of ischemia. Repeat in 4-6 hours if the sample w as drawn within 3-4 hours of the onset of the symptom and found normal. Between 0.035 and 0.120 ng/mL--- Borderline. Questiona ble myocardial injury or necrosis Note: Serial measurement may be necessary to confirm o r exclude the diagnosis of myocardial injury or necrosis ; Clinical correlation (symptoms, EKGs, imaging studies, and others) required; Repeat in 4-6 hours if clinically indicated. Equal or Higher than 0.121 ng/mL---Abnormal. Myocardia l Injury or Necrosis Likely Biotin has been reported to cause a negative bias, int erpret results relative to patient's use of biotin. Performing Organization Address City/[facility] Phone Number [facility] CLIA: [id number] [place] [address] [phone] [facility] [place] aPTT (for use with Heparin Drip) (04/15/2020 12:25 AM CLIENT CARE MANAGER) Pathologist [facility] APTT Patient 99 (H) 26 - 36 Seconds [facility] Specimen Blood - ARM, RIGHT Performing Organization Address City/[facility]/Zipcode Phone Number [facility] CLIA: [id number] [place] [address] [phone] [facility] [place] [place] aPTT (for use with Heparin Drip) (04/14/2020 6:51 PM CLIENT CARE MANAGER) Pathologist [facility] APTT Patient 64 (H) 26 - 36 Seconds [facility] Specimen Blood - ARM, RIGHT Performing Organization Address [facility] Cent[facility]ode Phone Number [facility] CLIA: [id number] [place] [address] [phone] [facility] [place] TROPONIN I (04/14/2020 6:51 PM CLIENT CARE MANAGER) Pathologist Sig nature TROPONIN I 3.340 (H) <=0.034 ng/mL [facility] Specimen Blood - ARM, RIGHT Narrative Performed At Equal or Less than 0.034 ng/ml---Normal [facility] Note: Cardiac troponin begins to rise 3-4 hours after the onset of ischemia. Repeat in 4-6 hours if the sample w as drawn within 3-4 hours of the onset of the symptom and found normal. Between 0.035 and 0.120 ng/mL--- Borderline. Questiona ble myocardial injury or necrosis Note: Serial measurement may be necessary to confirm o r exclude the diagnosis of myocardial injury or necrosis ; Clinical correlation (symptoms, EKGs, imaging studies, and others) required; Repeat in 4-6 hours if clinically indicated. Equal or Higher than 0.121 ng/mL---Abnormal. Myocardia l Injury or Necrosis Likely Biotin has been reported to cause a negative bias, int erpret results relative to patient's use of biotin. Performing Organization Address City/State/Zipcode Phone Number [facility] CLIA: [id number] [place] [address] [place] [address] TROPONIN I (04/14/2020 1:31 PM CLIENT CARE MANAGER) Pathologist Sig nature TROPONIN I 4.170 (H) <=0.034 ng/mL [facility] Specimen Blood - ARM, RIGHT Narrative Performed At Equal or Less than 0.034 ng/ml---Normal [facility] Note: Cardiac troponin begins to rise 3-4 hours after the onset of ischemia. Repeat in 4-6 hours if the sample w as drawn within 3-4 hours of the onset of the symptom and found normal. Between 0.035 and 0.120 ng/mL--- Borderline. Questiona ble myocardial injury or necrosis Note: Serial measurement may be necessary to confirm o r exclude the diagnosis of myocardial injury or necrosis ; Clinical correlation (symptoms, EKGs, imaging studies, and others) required; Repeat in 4-6 hours if clinically indicated. Equal or Higher than 0.121 ng/mL---Abnormal. Myocardia l Injury or Necrosis Likely Biotin has been reported to cause a negative bias, int erpret results relative to patient's use of biotin. Performing Organization Address City/State/[facility] Centercode Phone Number [facility] CLIA: [id number] [place] [address] [place] [address] aPTT (04/14/2020 5:34 AM CLIENT CARE MANAGER) Pathologist Sig nature APTT Patient 29 26 - 36 Seconds [facility] Specimen Blood Performing Organization Address City/[facility] Centercode Phone Number [facility] CLIA: [id number] [place] [address] [place] [address] EXTRA TUBE LT. BLUE (04/14/2020 5:34 AM CLIENT CARE MANAGER) Specimen Blood Performing Organization Address City/[facility] Centercode Phone Number [facility] CLIA: [id number] [place] [address] [place] [address] EXTRA TUBE SST (04/14/2020 5:34 AM CLIENT CARE MANAGER) Specimen Blood Performing Organization Address [facility] Phone Number [facility] CLIA: [id number] [place] [address] [place] [address] Magnesium Serum (04/14/2020 5:34 AM CLIENT CARE MANAGER) Pathologist Sig nature MAGNESIUM 2.2 1.7 - 2.4 mg/dL [facility] Specimen Blood - ARM, RIGHT Performing Organization Address [facility] Phone Number [facility] CLIA: [id number] [place] [address] [place] [address] BASIC METABOLIC PANEL (NA, K, CL, CO2, GLUCOSE, BUN, CREATININE, CA) (04/14/2020 5:34 AM CLIENT CARE MANAGER) NA 137 135 - 145 [facility] mmol/L SERVICES K 4.5 3.5 - 5.0 [facility] mmol/L SERVICES CL 99 98 - 108 mmol/L [facility] CO2 TOTAL 24 23 - 31 mmol/L [facility] AGAP 14 2 - 16 [facility] BUN 41 (H) 7 - 23 mg/dL [facility] GLUCOSE 135 (H) 70 - 110 mg/dL [facility] CREATININE 5.76 (H) 0.60 - 1.25 [facility] mg/dL SERVICES CALCIUM 9.3 8.6 - 10.6 [facility] mg/dL SERVICES eGFR Calculation 9.6 mL/min/1.73m2 [facility] (Non- SERVICES [place]) eGFR Calculation 11.7 mL/min/1.73m2 [facility] () SERVICES Specimen Blood - ARM, RIGHT Narrative Performed At Association of Glomerular Filtration Rate (GFR) and St aging [facility] of Kidney Disease* + + +------- ------ + | GFR (mL/min/1.73 m2) | With Kidney Damage | Wi thout Kidney Damage + + +------- ------ + | >90 | Stage one | Normal + + +------- ------ + | 60-89 | Stage two | Decreased GFR + + +------- ------ + | 30-59 | Stage three | Stage three + + +------- ------ + | 15-29 | Stage four | Stage four + + +------- ------ + | <15 (or dialysis) | Stage five | Stage five + + +------- ------ + *Each stage assumes the associated GFR level has been in effect for at least three months. Stages 1 to 5, wit h or without kidney disease, indicate chronic kidney disease. Notes: Determination of stages one and two (with eGFR >59mL/min/1.73 m2) requires estimation of kidney damag e for at least three months as defined by structural or func tional abnormalities of the kidney, manifested by either: Pathological abnormalities or Markers of kidney damage (including abnormalities in the composition of the blo od or urine or abnormalities in imaging tests) . Performing Organization Address City/State/Zipcode Phone Number [facility] CLIA: [id number] [place] [address] [place] [address] TROPONIN I (04/14/2020 5:34 AM CLIENT CARE MANAGER) Pathologist Sig nature TROPONIN I 3.880 (H) <=0.034 ng/mL [facility] Specimen Blood - ARM, RIGHT Narrative Performed At Equal or Less than 0.034 ng/ml---Normal [facility] Note: Cardiac troponin begins to rise 3-4 hours after the onset of ischemia. Repeat in 4-6 hours if the sample w as drawn within 3-4 hours of the onset of the symptom and found normal. Between 0.035 and 0.120 ng/mL--- Borderline. Questiona ble myocardial injury or necrosis Note: Serial measurement may be necessary to confirm o r exclude the diagnosis of myocardial injury or necrosis ; Clinical correlation (symptoms, EKGs, imaging studies, and others) required; Repeat in 4-6 hours if clinically indicated. Equal or Higher than 0.121 ng/mL---Abnormal. Myocardia l Injury or Necrosis Likely Biotin has been reported to cause a negative bias, int erpret results relative to patient's use of biotin. Performing Organization Address City/State/Zipcode Phone Number [facility] CLIA: [id number] [place] [address] [place] [address] CBC WITH DIFF (04/14/2020 5:34 AM CLIENT CARE MANAGER) Pathologist Sig nature WBC 7.82 4.20 - 10.70 [facility] 10*3/L SERVICES RBC 2.50 (L) 4.26 - 5.52 [facility] 10*6/L SERVICES HGB 8.2 (L) 12.2 - 16.4 [facility] g/dL SERVICES HCT 25.6 (L) 38.4 - 49.3 % [facility] MCV 102.4 (H) 81.7 - 95.6 fL [facility] MCH 32.8 (H) 26.1 - 32.7 pg [facility] MCHC 32.0 31.2 - 35.0 [facility] g/dL SERVICES RDW-SD 53.3 (H) 38.5 - 51.6 fL [facility] RDW-CV 14.2 12.1 - 15.4 % [facility] PLT 143 (L) 150 - 328 [facility] 10*3/L SERVICES MPV 11.1 9.8 - 13.0 fL [facility] NRBC/100 WBC 0.0 0.0 - 10.0 /100 [facility] WBCs SERVICES NRBC x10^3 <0.01 10*3/L [facility] GRAN MAT (NEUT) % 76.9 % [facility] IMM GRAN % 0.40 % [facility] LYMPH % 12.8 % [facility] MONO % 8.3 % [facility] EOS % 1.2 % [facility] BASO % 0.4 % [facility] GRAN MAT x10^3(ANC) 6.02 1.99 - 6.95 [facility] 10*3/uL SERVICES IMM GRAN x10^3 0.03 0.00 - 0.06 [facility] 10*3/uL SERVICES LYMPH x10^3 1.00 (L) 1.09 - 3.23 [facility] 10*3/uL SERVICES MONO x10^3 0.65 0.36 - 1.02 [facility] 10*3/uL SERVICES EOS x10^3 0.09 0.06 - 0.53 [facility] 10*3/uL SERVICES BASO x10^3 0.03 0.01 - 0.09 [facility] 10*3/uL SERVICES Specimen Blood - ARM, RIGHT Performing Organization Address City/[facility]/Zipcode Phone Number [facility] CLIA: [id number] [place], [place] [address]95 [address] [place] [address] Magnesium Serum (04/13/2020 10:16 PM CLIENT CARE MANAGER) Pathologist Sig nature MAGNESIUM 2.2 1.7 - 2.4 mg/dL [facility] Specimen Blood - HAND, RIGHT Performing Organization Address [facility] Centercode Phone Number [facility] CLIA: [id number] [place] [address] [place] [address] BASIC METABOLIC PANEL (NA, K, CL, CO2, GLUCOSE, BUN, CREATININE, CA) (04/13/2020 10:16 PM CLIENT CARE MANAGER) NA 137 135 - 145 [facility] mmol/L SERVICES K 4.6 3.5 - 5.0 [facility] mmol/L SERVICES CL 99 98 - 108 mmol/L [facility] CO2 TOTAL 25 23 - 31 mmol/L [facility] AGAP 13 2 - 16 [facility] BUN 34 (H) 7 - 23 mg/dL [facility] GLUCOSE 173 (H) 70 - 110 mg/dL [facility] CREATININE 5.20 (H) 0.60 - 1.25 [facility] mg/dL SERVICES CALCIUM 9.2 8.6 - 10.6 [facility] mg/dL SERVICES eGFR Calculation 10.8 mL/min/1.73m2 [facility] (Non- SERVICES [place]) eGFR Calculation 13.1 mL/min/1.73m2 [facility] () SERVICES Specimen Blood - HAND, RIGHT Narrative Performed At Association of Glomerular Filtration Rate (GFR) and St aging [facility] of Kidney Disease* + + +------- ------ + | GFR (mL/min/1.73 m2) | With Kidney Damage | Wi thout Kidney Damage + + +------- ------ + | >90 | Stage one | Normal + + +------- ------ + | 60-89 | Stage two | Decreased GFR + + +------- ------ + | 30-59 | Stage three | Stage three + + +------- ------ + | 15-29 | Stage four | Stage four + + +------- ------ + | <15 (or dialysis) | Stage five | Stage five + + +------- ------ + *Each stage assumes the associated GFR level has been in effect for at least three months. Stages 1 to 5, wit h or without kidney disease, indicate chronic kidney disease. Notes: Determination of stages one and two (with eGFR >59mL/min/1.73 m2) requires estimation of kidney damag e for at least three months as defined by structural or func tional abnormalities of the kidney, manifested by either: Pathological abnormalities or Markers of kidney damage (including abnormalities in the composition of the blo od or urine or abnormalities in imaging tests) . Performing Organization Address City/[facility] Cent[facility]ode Phone Number [facility] CLIA: [id number] [place], [place] [id number] [address] [place] [address] TROPONIN I (04/13/2020 10:16 PM CLIENT CARE MANAGER) [facility] nature TROPONIN I 2.550 (H) <=0.034 ng/mL [facility] Specimen Blood - HAND, RIGHT Narrative Performed At Equal or Less than 0.034 ng/ml---Normal [facility] Note: Cardiac troponin begins to rise 3-4 hours after the onset of ischemia. Repeat in 4-6 hours if the sample w as drawn within 3-4 hours of the onset of the symptom and found normal. Between 0.035 and 0.120 ng/mL--- Borderline. Questiona ble myocardial injury or necrosis Note: Serial measurement may be necessary to confirm o r exclude the diagnosis of myocardial injury or necrosis ; Clinical correlation (symptoms, EKGs, imaging studies, and others) required; Repeat in 4-6 hours if clinically indicated. Equal or Higher than 0.121 ng/mL---Abnormal. Myocardia l Injury or Necrosis Likely Biotin has been reported to cause a negative bias, int erpret results relative to patient's use of biotin. Performing Organization Address [facility] Centercode Phone Number [facility] CLIA: [id number] [place], [place] [id number] [address] [place] [address] US RETROPERITONEAL LIMITED (04/13/2020 4:08 PM CLIENT CARE MANAGER) Specimen Impressions Performed At PACS/VR/DOSE 1. Bilateral small kidneys with thin c ortices, consistent with chronic kidney disease. 2. A 5.4 cm simple cyst projected exophytically from superior pole of the left kidney. Preliminary Report Dictated by Resident: Miladys Jones I, Kristin Dewitt MD., have reviewed this study and agree with the above report. Narrative Performed At EXAM: US RETROPERITONEAL LIMITED PACS/VR/DOSE HISTORY: 75 years-old Male with recommended for f/u of possible exophytic left renal cyst. TECHNIQUE: Ultrasound of kidneys was performed with gr ayscale and selected color Doppler imaging. Milling Machine Set Up Operator images were obta ined for the record. COMPARISON: 04/13/2020. FINDINGS: KIDNEYS: RIGHT: Size:Small, 7.5 cm. Parenchyma: Renal cortex is hyperechoic and thinned. No focal solid or cystic renal lesions are detected. Collecting System: No hydronephrosis. LEFT: Size:Small, 7.0 cm. Parenchyma:Renal cortex is hyperechoic a nd thinned. A 5.4 x 5.4 x 5.3 cm cyst projected exophytically from the malcolm perior pole of the left kidney. Collecting System: No hydronephrosis. Procedure Note [facility], Radiant Results Inft User - 2020 5:05 PM CLIENT CARE MANAGER EXAM: US RETROPERITONEAL LIMITED HISTORY: 75 years-old Male with recommen ded for f/u of possible exophytic left renal cyst. TECHNIQUE: Ultrasound of kidneys was per formed with grayscale and selected color Doppler imaging. Milling Machine Set Up Operator im ages were obtained for the record. COMPARISON: 04/13/2020. FINDINGS: KIDNEYS: RIGHT: Size:Small, 7.5 cm. Parenchyma: Renal cortex is hyperechoic and thinned. No focal solid or cystic renal lesions are detected. Collecting System: No hydronephrosis. LEFT: Size:Small, 7.0 cm. Parenchyma:Renal cortex is hyperechoic a nd thinned. A 5.4 x 5.4 x 5.3 cm cyst projected exophytically from the malcolm perior pole of the left kidney. Collecting System: No hydronephrosis. IMPRESSION 1. Bilateral small kidneys with thin co rtices, consistent with chronic kidney disease. 2. A 5.4 cm simple cyst projected exoph ytically from superior pole of the left kidney. Preliminary Report Dictated by Resident: Miladys Jones I, Kristin Dewitt MD., have review ed this study and agree with the above report. Performing Organization Address City/State/Zipcode Phone Number PACS/VR/DOSE AC PANEL 20 + LACTIC ACID (04/13/2020 3:57 AM CLIENT CARE MANAGER) Pathologist Sig nature PH 7.55 (H) 7.35 - 7.45 [facility] PCO2 29 (L) 35 - 45 mmHg [facility] PO2 143 (H) 80 - 100 mmHg [facility] HCO3 25 22 - 26 mEq/L [facility] BE 2.6 -3.0 - 3.0 mEq/L [facility] THB 7.8 (LL) 13.5 - 18.0 g/dL [facility] %O2HB 98.1 94.0 - 99.0 % [facility] %COHB ART 1.0 0.0 - 1.5 % [facility] %METHB ART 0.0 (L) 0.4 - 1.5 % [facility] VOL%O2 ART 11.1 (L) 15.0 - 23.0 % [facility] NA 134 (L) 135 - 145 mmol/L [facility] K+ 4.4 3.5 - 5.0 mmol/L [facility] AC CA IONZ 4.60 4.50 - 5.30 mg/dL [facility] GLUCOSE 83 70 - 110 mg/dL [facility] LACTIC ACID 0.81 0.50 - 2.20 mmol/L [facility] Specimen Blood - ARTERIAL Performing Organization Address City/[facility]/Zipcode Phone Number [facility] CLIA: [id number] [place] [address] [place] [address] Blvd Magnesium Serum (04/13/2020 3:57 AM CLIENT CARE MANAGER) Pathologist Sig nature MAGNESIUM 1.9 1.7 - 2.4 mg/dL [facility] Specimen Blood - ARTERIAL Performing Organization Address City/[facility]/Zipcode Phone Number [facility] CLIA: [id number] [place] [address] [place] [address] BASIC METABOLIC PANEL (NA, K, CL, CO2, GLUCOSE, BUN, CREATININE, CA) (04/13/2020 3:57 AM CLIENT CARE MANAGER) NA 134 (L) 135 - 145 [facility] mmol/L SERVICES K 4.4 3.5 - 5.0 [facility] mmol/L SERVICES CL 101 98 - 108 mmol/L [facility] CO2 TOTAL 29 23 - 31 mmol/L [facility] AGAP 4 2 - 16 [facility] BUN 22 7 - 23 mg/dL [facility] GLUCOSE 88 70 - 110 mg/dL [facility] CREATININE 3.39 (H) 0.60 - 1.25 [facility] mg/dL SERVICES CALCIUM 9.3 8.6 - 10.6 [facility] mg/dL SERVICES eGFR Calculation 17.8 mL/min/1.73m2 [facility] [facility] (Non- SERVICES [place]) eGFR Calculation 21.5 mL/min/1.73m2 [facility] () SERVICES Specimen Blood - ARTERIAL Narrative Performed At Association of Glomerular Filtration Rate (GFR) and St aging [facility] of Kidney Disease* + + +------- ------ + | GFR (mL/min/1.73 m2) | With Kidney Damage | Wi thout Kidney Damage + + +------- ------ + | >90 | Stage one | Normal + + +------- ------ + | 60-89 | Stage two | Decreased GFR + + +------- ------ + | 30-59 | Stage three | Stage three + + +------- ------ + | 15-29 | Stage four | Stage four + + +------- ------ + | <15 (or dialysis) | Stage five | Stage five + + +------- ------ + *Each stage assumes the associated GFR level has been in effect for at least three months. Stages 1 to 5, wit h or without kidney disease, indicate chronic kidney disease. Notes: Determination of stages one and two (with eGFR >59mL/min/1.73 m2) requires estimation of kidney damag e for at least three months as defined by structural or func tional abnormalities of the kidney, manifested by either: Pathological abnormalities or Markers of kidney damage (including abnormalities in the composition of the blo od or urine or abnormalities in imaging tests) . Performing Organization Address City/State/Zipcode Phone Number [facility] CLIA: [id number] [place], [place] [address] [address] [place], [place] [address] TROPONIN I (04/13/2020 3:57 AM CLIENT CARE MANAGER) Pathologist Sig nature TROPONIN I 0.356 (H) <=0.034 ng/mL [facility] Specimen Blood - ARTERIAL Narrative Performed At Equal or Less than 0.034 ng/ml---Normal [facility] Note: Cardiac troponin begins to rise 3-4 hours after the onset of ischemia. Repeat in 4-6 hours if the sample w as drawn within 3-4 hours of the onset of the symptom and found normal. Between 0.035 and 0.120 ng/mL--- Borderline. Questiona ble myocardial injury or necrosis Note: Serial measurement may be necessary to confirm o r exclude the diagnosis of myocardial injury or necrosis ; Clinical correlation (symptoms, EKGs, imaging studies, and others) required; Repeat in 4-6 hours if clinically indicated. Equal or Higher than 0.121 ng/mL---Abnormal. Myocardia l Injury or Necrosis Likely Biotin has been reported to cause a negative bias, int erpret results relative to patient's use of biotin. Performing Organization Address City/State/Zipcode Phone Number [facility] CLIA: [id number] [place] [address] [place] [address] US ABDOMEN LIMITED (04/13/2020 12:50 AM CLIENT CARE MANAGER) Specimen Impressions Performed At PACS/VR/DOSE Normal hepatic contours. Cholelithiasis without acute cholecystit is. A 7.6 cm cystic structure adjacent to th e spleen could represent an exophytic left renal cyst. However the left kidney its elf is not included as part of this examination. Please patricia elate for stability with prior imaging if available. Alternatively, interval follow-u p with ultrasound of the kidneys/retroperitoneum could be obt ained to document for stability. Small right pleural effusion. I, Shaista Nelson MD., have reviewed thi s study and agree with the above report. Narrative Performed At PACS/VR/DOSE EXAM: LIMITED ABDOMINAL ULTRASOUND HISTORY: RUQ, evaluate for cirrhosis o ther liver morphology COMPARISON: None FINDINGS: A right upper quadrant transabdominal ul trasound demonstrates a normal sized liver with normal echotexture and without focal lesion. No intrahepatic biliary dilatation is id entified. The main portal vein demonstrates normal hepatopetal blood fl ow. The proximal abdominal aorta measures 1.9 cm in AP diameter. The gallbladder is well-distended can't contains multi ple stones within its lumen without wall thickening, or pericholecystic flui d. Sonographic Long sign cannot be elicited as the patient is intubated. T he common bile duct is normal and measures 7 mm in width. The pancreas is not well visualized. Partial views of the right kidney are unremarkable. The spleen measures 9.4 cm . An anechoic, cystic structure with posterior acoustic enhancement adjacent to the sp melanie measures 7.4 x 5.5 x 7.6 cm, and could originate from t he left kidney. The left kidney was not well evaluated o n this study. Small right pleural effusion. Procedure Note [facility], Radiant Results Inft User - 2020 1:42 PM CLIENT CARE MANAGER EXAM: LIMITED ABDOMINAL ULTRASOUND HISTORY: RUQ, evaluate for cirrhosis ot her liver morphology COMPARISON: None FINDINGS: A right upper quadrant transabdominal ul trasound demonstrates a normal sized liver with normal echotexture and without focal lesion. No intrahepatic biliary dilatation is id entified. The main portal vein demonstrates normal hepatopetal blood fl ow. The proximal abdominal aorta measures 1.9 cm in AP diameter. The gallbladder is well-distended can't contains multiple stones within its lumen without wall thickening, or perich olecystic fluid. Sonographic Long sign cannot be elicited as the patient i s intubated. The common bile duct is normal and measures 7 mm in width. The pancreas is not well visualized. Par tial views of the right kidney are unremarkable. The spleen measures 9.4 cm . An anechoic, cystic structure with posterior acoustic enhancement aicha cent to the spleen measures 7.4 x 5.5 x 7.6 cm, and could originate from t he left kidney. The left kidney was not well evaluated o n this study. Small right pleural effusion. IMPRESSION Normal hepatic contours. Cholelithiasis without acute cholecystit is. A 7.6 cm cystic structure adjacent to th e spleen could represent an exophytic left renal cyst. However the l eft kidney itself is not included as part of this examination. Please patricia elate for stability with prior imaging if available. Alternatively, int erval follow-up with ultrasound of the kidneys/retroperitoneum could be obt ained to document for stability. Small right pleural effusion. I, Shaista Nelson MD., have reviewed thi s study and agree with the above report. Performing Organization Address City/[facility]/Zipcode Phone Number PACS/VR/DOSE AC PANEL 20 + LACTIC ACID (04/12/2020 8:43 PM CLIENT CARE MANAGER) Pathologist Sig nature PH 7.56 (H) 7.35 - 7.45 [facility] PCO2 29 (L) 35 - 45 mmHg [facility] PO2 132 (H) 80 - 100 mmHg [facility] HCO3 26 22 - 26 mEq/L [facility] BE 3.7 (H) -3.0 - 3.0 mEq/L [facility] THB 9.1 (L) 13.5 - 18.0 g/dL [facility] %O2HB 98.2 94.0 - 99.0 % [facility] %COHB ART 0.1 0.0 - 1.5 % [facility] %METHB ART 0.3 (L) 0.4 - 1.5 % [facility] VOL%O2 ART 12.8 (L) 15.0 - 23.0 % [facility] NA 135 135 - 145 mmol/L [facility] K+ 3.1 (L) 3.5 - 5.0 mmol/L [facility] AC CA IONZ 4.90 4.50 - 5.30 mg/dL [facility] GLUCOSE 86 70 - 110 mg/dL [facility] LACTIC ACID 0.97 0.50 - 2.20 mmol/L [facility] Specimen Blood - ARTERIAL Performing Organization Address City/State/Zipcode Phone Number [facility] CLIA: [id number] [place] [address] [place] [address] TROPONIN I (04/12/2020 8:43 PM CLIENT CARE MANAGER) Pathologist Sig nature TROPONIN I 0.451 (H) <=0.034 ng/mL [facility] Specimen Blood - ARTERIAL Narrative Performed At Equal or Less than 0.034 ng/ml---Normal [facility] Note: Cardiac troponin begins to rise 3-4 hours after the onset of ischemia. Repeat in 4-6 hours if the sample w as drawn within 3-4 hours of the onset of the symptom and found normal. Between 0.035 and 0.120 ng/mL--- Borderline. Questiona ble myocardial injury or necrosis Note: Serial measurement may be necessary to confirm o r exclude the diagnosis of myocardial injury or necrosis ; Clinical correlation (symptoms, EKGs, imaging studies, and others) required; Repeat in 4-6 hours if clinically indicated. Equal or Higher than 0.121 ng/mL---Abnormal. Myocardia l Injury or Necrosis Likely Biotin has been reported to cause a negative bias, int erpret results relative to patient's use of biotin. Performing Organization Address City/[facility]/Zipcode Phone Number [facility] CLIA: [id number] [place] [address] [place] [address] Magnesium Serum (04/12/2020 8:43 PM CLIENT CARE MANAGER) Pathologist Sig nature MAGNESIUM 1.9 1.7 - 2.4 mg/dL [facility] Specimen Blood - ARTERIAL Performing Organization Address [facility] Phone Number [facility] CLIA: [id number] [place] [address] [place] [address] BASIC METABOLIC PANEL (NA, K, CL, CO2, GLUCOSE, BUN, CREATININE, CA) (04/12/2020 8:43 PM CLIENT CARE MANAGER) NA 136 135 - 145 [facility] mmol/L SERVICES K 3.2 (L) 3.5 - 5.0 [facility] mmol/L SERVICES CL 98 98 - 108 mmol/L [facility] CO2 TOTAL 29 23 - 31 mmol/L [facility] AGAP 9 2 - 16 [facility] BUN 14 7 - 23 mg/dL [facility] GLUCOSE 93 70 - 110 mg/dL [facility] CREATININE 2.07 (H) 0.60 - 1.25 [facility] mg/dL SERVICES CALCIUM 9.9 8.6 - 10.6 [facility] mg/dL SERVICES eGFR Calculation 31.4 mL/min/1.73m2 [facility] (Non- SERVICES [place]) eGFR Calculation 38.0 mL/min/1.73m2 [facility] () SERVICES Specimen Blood - ARTERIAL Narrative Performed At Association of Glomerular Filtration Rate (GFR) and St aging [facility] of Kidney Disease* + + +------- ------ + | GFR (mL/min/1.73 m2) | With Kidney Damage | Wi thout Kidney Damage + + +------- ------ + | >90 | Stage one | Normal + + +------- ------ + | 60-89 | Stage two | Decreased GFR + + +------- ------ + | 30-59 | Stage three | Stage three + + +------- ------ + | 15-29 | Stage four | Stage four + + +------- ------ + | <15 (or dialysis) | Stage five | Stage five + + +------- ------ + *Each stage assumes the associated GFR level has been in effect for at least three months. Stages 1 to 5, wit h or without kidney disease, indicate chronic kidney disease. Notes: Determination of stages one and two (with eGFR >59mL/min/1.73 m2) requires estimation of kidney damag e for at least three months as defined by structural or func tional abnormalities of the kidney, manifested by either: Pathological abnormalities or Markers of kidney damage (including abnormalities in the composition of the blo od or urine or abnormalities in imaging tests) . Performing Organization Address City/State/Zipcode Phone Number [facility] CLIA: [id number] [place] [address] [place] [address] CBC WITHOUT DIFF (04/12/2020 8:43 PM CLIENT CARE MANAGER) Pathologist Sig nature WBC 6.27 4.20 - 10.70 [facility] 10*3/L SERVICES RBC 2.67 (L) 4.26 - 5.52 [facility] 10*6/L SERVICES HGB 8.9 (L) 12.2 - 16.4 g/dL [facility] HCT 25.8 (L) 38.4 - 49.3 % [facility] MCH 33.3 (H) 26.1 - 32.7 pg [facility] MCV 96.6 (H) 81.7 - 95.6 fL [facility] MCHC 34.5 31.2 - 35.0 g/dL [facility] PLT 120 (L) 150 - 328 10*3/L [facility] MPV 10.6 9.8 - 13.0 fL [facility] RDW-CV 14.2 12.1 - 15.4 % [facility] RDW-SD 49.6 38.5 - 51.6 fL [facility] NRBC x10^3 <0.01 10*3/L [facility] NRBC/100 WBC 0.0 0.0 - 10.0 /100 [facility] WBCs SERVICES IPF % [facility] Specimen Blood - ARTERIAL Performing Organization Address City/State/Zipcode Phone Number [facility] CLIA: [id number] [place] [address] [place] [address] XR KUB (04/12/2020 2:43 PM CLIENT CARE MANAGER) Specimen Impressions Performed At PACS/VR/DOSE Interval slight retraction of enteric tube now project ing over the gastric antrum. Preliminary Report Dictated by Resident: Aaron Vega I, Simona Horton MD., have reviewed this sundeep dy and agree with the above report. Narrative Performed At EXAM: XR KUB PACS/VR/DOSE HISTORY: 75 years-old Male with repositi oning of NG Tube . COMPARISON: KUB 04/12/2020 9:25 AM. TECHNIQUE: Supine AP view of the abdomen . FINDINGS: Interval slight retraction of enteric tube now project ing over the gastric antrum. The bowel gas pattern is nonobstructive. The visualized bones and soft tissues ar e within normal limits. Contrast material is noted within the gallbladder lumen likely from vicarious excretion. Procedure Note [facility], Radiant Results Inft User - 2020 4:37 PM CLIENT CARE MANAGER EXAM: XR KUB HISTORY: 75 years-old Male with repositi oning of NG Tube . COMPARISON: KUB 04/12/2020 9:25 AM. TECHNIQUE: Supine AP view of the abdomen . FINDINGS: Interval slight retraction of enteric tu be now projecting over the gastric antrum. The bowel gas pattern is nonobstructive. The visualized bones and soft tissues ar e within normal limits. Contrast material is noted within the gallbladder lumen likely from vicarious excretion. IMPRESSION Interval slight retraction of enteric tu be now projecting over the gastric antrum. Preliminary Report Dictated by Resident: Simona Zimmer MD., have rev iewed this study and agree with the above report. Performing Organization Address City/[facility]/Zipcode Phone Number PACS/VR/DOSE AC PANEL 20 + LACTIC ACID (04/12/2020 10:01 AM CLIENT CARE MANAGER) Pathologist Sig nature PH 7.56 (H) 7.35 - 7.45 [facility] PCO2 23 (L) 35 - 45 mmHg [facility] PO2 103 (H) 80 - 100 mmHg [facility] HCO3 21 (L) 22 - 26 mEq/L [facility] BE -0.9 -3.0 - 3.0 mEq/L [facility] THB 8.4 (L) 13.5 - 18.0 g/dL [facility] %O2HB 97.1 94.0 - 99.0 % [facility] %COHB ART 0.8 0.0 - 1.5 % [facility] %METHB ART 0.3 (L) 0.4 - 1.5 % [facility] VOL%O2 ART 11.7 (L) 15.0 - 23.0 % [facility] NA 132 (L) 135 - 145 mmol/L [facility] K+ 4.4 3.5 - 5.0 mmol/L [facility] AC CA IONZ 4.40 (L) 4.50 - 5.30 mg/dL [facility] GLUCOSE 84 70 - 110 mg/dL [facility] LACTIC ACID 1.18 0.50 - 2.20 mmol/L [facility] Specimen Blood - ARTERIAL Performing Organization Address City/State/Zipcode Phone Number [facility] CLIA: [id number] [place] [address] [place] [address] XR KUB (04/12/2020 9:27 AM CLIENT CARE MANAGER) Specimen Impressions Performed At FINDINGS AND IMPRESSION: PACS/VR/DOSE The weighted enteral feeding tube passes below the cookie phragm and terminates in the antrum/pyloric region. The bowel gas pattern is normal. No abnormal calcifications or radiopaque stones. No acute osseous abnormality. Median sternotomy wires are present. EKG leads overlie the abdomen and lower thorax. Preliminary Report Dictated by Resident: Anthony Gagnon I reviewed this study and agree. I, Lloyd Martin MD., have reviewe d this study and agree with the above report. Narrative Performed At This result has an attachment that is no t available. XR KUB PACS/VR/DOSE COMPARISON: None available HISTORY: og tube placement Procedure Note [facility], Radiant Results Inft User - 2020 11:24 AM CLIENT CARE MANAGER XR KUB COMPARISON: None available HISTORY: og tube placement IMPRESSION FINDINGS AND IMPRESSION: The weighted enteral feeding tube passes below the diaphragm and terminates in the antrum/pyloric region. The bowel gas pattern is normal. No abnormal calcifications or radiopaque stones. No acute osseous abnormality. Median sternotomy wires are present. EKG leads overlie the abdomen and lower thorax. Preliminary Report Dictated by Resident: Anthony Gagnon I reviewed this study and agree. I, Lloyd Martin MD., have reviewe d this study and agree with the above report. Performing Organization Address City/State/Zipcode Phone Number PACS/VR/DOSE AC PANEL 20 + LACTIC ACID (04/12/2020 5:06 AM CLIENT CARE MANAGER) [facility] PH 7.49 (H) 7.35 - 7.45 [facility] PCO2 29 (L) 35 - 45 mmHg [facility] PO2 266 (H) 80 - 100 mmHg [facility] HCO3 21 (L) 22 - 26 mEq/L [facility] BE -1.6 -3.0 - 3.0 mEq/L [facility] THB 8.0 (LL) 13.5 - 18.0 g/dL [facility] %O2HB 98.4 94.0 - 99.0 % [facility] %COHB ART 1.0 0.0 - 1.5 % [facility] %METHB ART 0.3 (L) 0.4 - 1.5 % [facility] VOL%O2 ART 11.8 (L) 15.0 - 23.0 % [facility] NA 132 (L) 135 - 145 mmol/L [facility] K+ 4.5 3.5 - 5.0 mmol/L [facility] AC CA IONZ 4.40 (L) 4.50 - 5.30 mg/dL [facility] GLUCOSE 129 (H) 70 - 110 mg/dL [facility] LACTIC ACID 1.95 0.50 - 2.20 mmol/L [facility] Specimen Blood - ARTERIAL Performing Organization Address City/[facility]/Zipcode Phone Number [facility] CLIA: [id number] [place], [place] [address] [address] [place] [address] Blvd EXTRA TUBE RED (04/12/2020 4:48 AM CLIENT CARE MANAGER) Specimen Blood Performing Organization Address City/[facility]/Zipcode Phone Number [facility] CLIA: [id number] [place] [address] [place] [address] Lactate Dehydrogenase (04/12/2020 4:48 AM CLIENT CARE MANAGER) Pathologist Sig nature LDH 547 300 - 600 U/L [facility] Specimen Blood - VENOUS Performing Organization Address City/[facility]/Zipcode Phone Number [facility] CLIA: [id number] [place] [address] [place] [address] Hepatic Function Panel (ALB, T.PRO, BILI T, BU/BC, ALT, AST, ALK, PHOS) (04/12/2020 4:48 AM CLIENT CARE MANAGER) Pathologist Sig nature TOTAL BILI 0.9 0.1 - 1.1 mg/dL [facility] BILI UNCON 0.4 0.1 - 1.1 mg/dL [facility] BILI CONJ 0.0 0.0 - 0.3 mg/dL [facility] T PROTEIN 5.7 (L) 6.3 - 8.2 g/dL [facility] ALBUMIN 3.2 (L) 3.5 - 5.0 g/dL [facility] ALK PHOS 62 34 - 122 U/L [facility] ALTv 33 5 - 50 U/L [facility] AST(SGOT) 36 13 - 40 U/L [facility] Specimen Blood - VENOUS Performing Organization Address City/[facility] Phone Number [facility] CLIA: [id number] [place] [address] [place] [address] Phosphorus Serum (04/12/2020 4:48 AM CLIENT CARE MANAGER) Pathologist Sig nature PHOSPHORUS 4.7 2.5 - 5.0 mg/dL [facility] Specimen Blood - VENOUS Performing Organization Address City/[facility]/Zipcode Phone Number [facility] CLIA: [id number] [place] [address] [place] [address] Magnesium Serum (04/12/2020 4:48 AM CLIENT CARE MANAGER) Pathologist Sig nature MAGNESIUM 2.0 1.7 - 2.4 mg/dL [facility] Specimen Blood - VENOUS Performing Organization Address City/[facility]/Zipcode Phone Number [facility] CLIA: [id number] [place] [address] [place] [address] Basic Metabolic Panel (NA, K, CL, CO2, Glucose, BUN, Creatinine, CA) (04/12/2020 4:48 AM CLIENT CARE MANAGER) NA 133 (L) 135 - 145 [facility] mmol/L SERVICES K 4.6 3.5 - 5.0 [facility] mmol/L SERVICES CL 99 98 - 108 mmol/L [facility] CO2 TOTAL 23 23 - 31 mmol/L [facility] AGAP 11 2 - 16 [facility] BUN 49 (H) 7 - 23 mg/dL [facility] GLUCOSE 144 (H) 70 - 110 mg/dL [facility] CREATININE 5.31 (H) 0.60 - 1.25 [facility] mg/dL SERVICES CALCIUM 8.7 8.6 - 10.6 [facility] mg/dL SERVICES eGFR Calculation 10.6 mL/min/1.73m2 [facility] (Non- SERVICES [place]) eGFR Calculation 12.8 mL/min/1.73m2 [facility] () SERVICES Specimen Blood - VENOUS Narrative Performed At Association of Glomerular Filtration Rate (GFR) and St aging [facility] of Kidney Disease* + + +------- ------ + | GFR (mL/min/1.73 m2) | With Kidney Damage | Wi thout Kidney Damage + + +------- ------ + | >90 | Stage one | Normal + + +------- ------ + | 60-89 | Stage two | Decreased GFR + + +------- ------ + | 30-59 | Stage three | Stage three + + +------- ------ + | 15-29 | Stage four | Stage four + + +------- ------ + | <15 (or dialysis) | Stage five | Stage five + + +------- ------ + *Each stage assumes the associated GFR level has been in effect for at least three months. Stages 1 to 5, wit h or without kidney disease, indicate chronic kidney disease. Notes: Determination of stages one and two (with eGFR >59mL/min/1.73 m2) requires estimation of kidney damag e for at least three months as defined by structural or func tional abnormalities of the kidney, manifested by either: Pathological abnormalities or Markers of kidney damage (including abnormalities in the composition of the blo od or urine or abnormalities in imaging tests) . Performing Organization Address City/State/Zipcode Phone Number [facility] CLIA: [id number] [place] [address] [place] [address] Prothrombin Time / INR (04/12/2020 4:48 AM CLIENT CARE MANAGER) PROTIME PATIENT 14.0 (H) 10.1 - 12.6 [facility] Seconds SERVICES INR 1.2Comment: Normal [facility] INR <1.1; Warfarin SERVICES Therapeutic range 2.0 to 3.0 or 2.5 to 3.5, depending upon the indications. Specimen Blood - VENOUS Performing Organization Address City/State/Zipcode Phone Number [facility] CLIA: [id number] [place] [address] [phone] [facility] [place] [place] aPTT (04/12/2020 4:48 AM CLIENT CARE MANAGER) Pathologist Sig nature APTT Patient 25 (L) 26 - 36 Seconds [facility] Specimen Blood - VENOUS Performing Organization Address City/[facility] Cent[facility] Phone Number [facility] CLIA: [id number] [place] [address] [place] [address] CBC with Differential (04/12/2020 4:48 AM CLIENT CARE MANAGER) Pathologist Sig rey WBC 5.75 4.20 - 10.70 [facility] 10*3/L SERVICES RBC 2.33 (L) 4.26 - 5.52 [facility] 10*6/L SERVICES HGB 7.8 (L) 12.2 - 16.4 [facility] g/dL SERVICES HCT 23.8 (L) 38.4 - 49.3 % [facility] SERVICES MCV 102.1 (H) 81.7 - 95.6 fL [facility] SERVICES MCH 33.5 (H) 26.1 - 32.7 pg [facility] MCHC 32.8 31.2 - 35.0 [facility] g/dL SERVICES RDW-SD 52.5 (H) 38.5 - 51.6 fL [facility] RDW-CV 14.3 12.1 - 15.4 % [facility] PLT 117 (L) 150 - 328 [facility] 10*3/L SERVICES MPV 11.1 9.8 - 13.0 fL [facility] NRBC/100 WBC 0.0 0.0 - 10.0 /100 [facility] WBCs SERVICES NRBC x10^3 <0.01 10*3/L [facility] GRAN MAT (NEUT) % 83.1 % [facility] IMM GRAN % 0.50 % [facility] LYMPH % 8.7 % [facility] MONO % 7.0 % [facility] EOS % 0.5 % [facility] BASO % 0.2 % [facility] GRAN MAT x10^3(ANC) 4.78 1.99 - 6.95 [facility] 10*3/uL SERVICES IMM GRAN x10^3 0.03 0.00 - 0.06 [facility] 10*3/uL SERVICES LYMPH x10^3 0.50 (L) 1.09 - 3.23 [facility] 10*3/uL SERVICES MONO x10^3 0.40 0.36 - 1.02 [facility] 10*3/uL SERVICES EOS x10^3 0.03 (L) 0.06 - 0.53 [facility] 10*3/uL SERVICES BASO x10^3 <0.03 0.01 - 0.09 [facility] 10*3/uL SERVICES Specimen Blood - VENOUS Performing Organization Address City/[facility]/Zipcode Phone Number [facility] CLIA: [id number] [place], [place] [address] [address] [facility] [place] [place] MRSA / MSSA Screen by PCR, Nares (04/12/2020 4:48 AM CLIENT CARE MANAGER) Pathologist Sig nature MRSA Screen by PCR, Negative Negative [facility] Nares SERVICES MSSA Screen by PCR, Negative Negative [facility] Nares SERVICES MRSA/MSSA Positive? No No [facility] Specimen Swab - NARES, BOTH SIDES Performing Organization Address City/[facility]/Zipcode Phone Number [facility] CLIA: [id number] [place] [address] [phone] [facility] [place] EXTRA TUBE ORANGE (04/12/2020 4:48 AM CLIENT CARE MANAGER) Specimen Blood - VENOUS Performing Organization Address City/[facility]/Zipcode Phone Number [facility] CLIA: [id number] [place] [address] [phone] [facility] [place] EXTRA TUBE LT. BLUE (04/12/2020 4:48 AM CLIENT CARE MANAGER) Specimen Blood - VENOUS Performing Organization Address City/State/Zipcode Phone Number [facility] CLIA: [id number] [place] [address] [place] [address] EXTRA TUBE BLOOD CULTURE (04/12/2020 4:48 AM CLIENT CARE MANAGER) Specimen Blood - VENOUS Performing Organization Address [facility]/Zipcode Phone Number [facility] CLIA: [id number] [place] [address] [place] [address] XR CHEST 1 VW (04/12/2020 3:55 AM CLIENT CARE MANAGER) Specimen Narrative Performed At This result has an attachment that is no t available. EXAM: XR CHEST 1 VW PACS/VR/DOSE HISTORY: ETT placement, post chest compression( code) COMPARISON: None. FINDINGS: The tip of the endotracheal tube is at the level of th e clavicles. The heart remains slightly enlarged. Hilar vascular conges tion noted previously has worsened and interstitial pulmonary edema is now p resent on both sides. Procedure Note Ut, Radiant Results Inft User - 2020 7:52 AM CLIENT CARE MANAGER EXAM: XR CHEST 1 VW HISTORY: ETT placement, post chest compr ession( code) COMPARISON: None. FINDINGS: The tip of the endotracheal tube is at t he level of the clavicles. The heart remains slightly enlarged. Hilar v ascular congestion noted previously has worsened and interstitial pulmonary edema is now present on both sides. Performing Organization Address City/[facility]/Zipcode Phone Number PACS/VR/DOSE CBC WITH DIFF (04/12/2020 3:31 AM CLIENT CARE MANAGER) Pathologist Sig nature WBC 6.00 4.20 - 10.70 [facility] 10*3/L SERVICES RBC 2.49 (L) 4.26 - 5.52 [facility] 10*6/L SERVICES HGB 8.3 (L) 12.2 - 16.4 [facility] g/dL SERVICES HCT 25.4 (L) 38.4 - 49.3 % [facility] MCV 102.0 (H) 81.7 - 95.6 fL [facility] MCH 33.3 (H) 26.1 - 32.7 pg [facility] MCHC 32.7 31.2 - 35.0 [facility] g/dL SERVICES RDW-SD 53.1 (H) 38.5 - 51.6 fL [facility] RDW-CV 14.2 12.1 - 15.4 % [facility] PLT 128 (L) 150 - 328 [facility] 10*3/L SERVICES MPV 11.0 9.8 - 13.0 fL [facility] NRBC/100 WBC 0.0 0.0 - 10.0 /100 [facility] WBCs SERVICES NRBC x10^3 <0.01 10*3/L [facility] GRAN MAT (NEUT) % 50.7 % [facility] IMM GRAN % 0.20 % [facility] LYMPH % 37.8 % [facility] MONO % 10.5 % [facility] EOS % 0.5 % [facility] BASO % 0.3 % [facility] GRAN MAT x10^3(ANC) 3.04 1.99 - 6.95 [facility] 10*3/uL SERVICES IMM GRAN x10^3 <0.03 0.00 - 0.06 [facility] 10*3/uL SERVICES LYMPH x10^3 2.27 1.09 - 3.23 [facility] 10*3/uL SERVICES MONO x10^3 0.63 0.36 - 1.02 [facility] 10*3/uL SERVICES EOS x10^3 0.03 (L) 0.06 - 0.53 [facility] 10*3/uL SERVICES BASO x10^3 <0.03 0.01 - 0.09 [facility] 10*3/uL SERVICES Specimen Blood - VENOUS Performing Organization Address City/State/Zipcode Phone Number [facility] CLIA: [id number] [place] [address] [place] [address] TROPONIN I (04/12/2020 3:30 AM CLIENT CARE MANAGER) Pathologist Sig nature TROPONIN I 0.156 (H) <=0.034 ng/mL [facility] Specimen Blood - VENOUS Narrative Performed At Equal or Less than 0.034 ng/ml---Normal [facility] Note: Cardiac troponin begins to rise 3-4 hours after the onset of ischemia. Repeat in 4-6 hours if the sample w as drawn within 3-4 hours of the onset of the symptom and found normal. Between 0.035 and 0.120 ng/mL--- Borderline. Questiona ble myocardial injury or necrosis Note: Serial measurement may be necessary to confirm o r exclude the diagnosis of myocardial injury or necrosis ; Clinical correlation (symptoms, EKGs, imaging studies, and others) required; Repeat in 4-6 hours if clinically indicated. Equal or Higher than 0.121 ng/mL---Abnormal. Myocardia l Injury or Necrosis Likely Biotin has been reported to cause a negative bias, int erpret results relative to patient's use of biotin. Performing Organization Address City/State/Zipcode Phone Number [facility] CLIA: [id number] [place] [address] [place] [address] BASIC METABOLIC PANEL (NA, K, CL, CO2, GLUCOSE, BUN, CREATININE, CA) (04/12/2020 3:30 AM CLIENT CARE MANAGER) NA 136 135 - 145 [facility] mmol/L SERVICES K 4.2 3.5 - 5.0 [facility] mmol/L SERVICES CL 100 98 - 108 mmol/L [facility] SERVICES CO2 TOTAL 22 (L) 23 - 31 mmol/L [facility] AGAP 14 2 - 16 [facility] BUN 48 (H) 7 - 23 mg/dL [facility] SERVICES GLUCOSE 84 70 - 110 mg/dL [facility] SERVICES CREATININE 4.76 (H) 0.60 - 1.25 [facility] mg/dL SERVICES CALCIUM 8.5 (L) 8.6 - 10.6 [facility] mg/dL SERVICES eGFR Calculation 12.0 mL/min/1.73m2 [facility] (Non- SERVICES [place]) eGFR Calculation 14.5 mL/min/1.73m2 [facility] () SERVICES Specimen Blood - VENOUS Narrative Performed At Association of Glomerular Filtration Rate (GFR) and St aging [facility] SERVICES of Kidney Disease* + + +------- ------ + | GFR (mL/min/1.73 m2) | With Kidney Damage | Wi thout Kidney Damage + + +------- ------ + | >90 | Stage one | Normal + + +------- ------ + | 60-89 | Stage two | Decreased GFR + + +------- ------ + | 30-59 | Stage three | Stage three + + +------- ------ + | 15-29 | Stage four | Stage four + + +------- ------ + | <15 (or dialysis) | Stage five | Stage five + + +------- ------ + *Each stage assumes the associated GFR level has been in effect for at least three months. Stages 1 to 5, wit h or without kidney disease, indicate chronic kidney disease. Notes: Determination of stages one and two (with eGFR >59mL/min/1.73 m2) requires estimation of kidney damag e for at least three months as defined by structural or func tional abnormalities of the kidney, manifested by either: Pathological abnormalities or Markers of kidney damage (including abnormalities in the composition of the blo od or urine or abnormalities in imaging tests) . Performing Organization Address City/[facility] Cent[facility] Phone Number [facility] CLIA: [id number] [place] [address] [phone] [facility] [place] Magnesium Serum (04/12/2020 3:30 AM CLIENT CARE MANAGER) Pathologist Sig nature MAGNESIUM 2.1 1.7 - 2.4 mg/dL [facility] Specimen Blood - VENOUS Performing Organization Address [facility] Center[facility] Phone Number [facility] CLIA: [id number] [place] [address] [phone] [facility] [place] FIBRINOGEN (04/12/2020 3:30 AM CLIENT CARE MANAGER) Pathologist Sig nature Fibrinogen 307 167 - 453 mg/dL [facility] Specimen Blood - VENOUS Performing Organization Address [facility] Phone Number [facility] CLIA: [id number] [place] [address] [phone] [facility] [place] PROTHROMBIN TIME / INR (04/12/2020 3:30 AM CLIENT CARE MANAGER) PROTIME PATIENT 13.4 (H) 10.1 - 12.6 [facility] Seconds SERVICES INR 1.2Comment: Normal [facility] INR <1.1; Warfarin SERVICES Therapeutic range 2.0 to 3.0 or 2.5 to 3.5, depending upon the indications. Specimen Blood - VENOUS Performing Organization Address [facility] Phone Number [facility] CLIA: [id number] [place] [address] [phone] [facility] [place] [place] AC PANEL 20 + LACTIC ACID (04/12/2020 3:29 AM CLIENT CARE MANAGER) Pathologist Sig nature PH 7.11 (LL) 7.35 - 7.45 [facility] PCO2 73 (H) 35 - 45 mmHg [facility] PO2 369 (H) 80 - 100 mmHg [facility] HCO3 23 22 - 26 mEq/L [facility] BE -7.2 (L) -3.0 - 3.0 mEq/L [facility] THB 9.8 (L) 13.5 - 18.0 g/dL [facility] %O2HB 99.1 (H) 94.0 - 99.0 % [facility] %COHB ART 0.3 0.0 - 1.5 % [facility] %METHB ART 0.1 (L) 0.4 - 1.5 % [facility] VOL%O2 ART 14.7 (L) 15.0 - 23.0 % [facility] NA 135 135 - 145 mmol/L [facility] K+ 5.4 (H) 3.5 - 5.0 mmol/L [facility] AC CA IONZ 5.20 4.50 - 5.30 mg/dL [facility] GLUCOSE 142 (H) 70 - 110 mg/dL [facility] LACTIC ACID 6.24 (H) 0.50 - 2.20 mmol/L [facility] Specimen Blood - ARTERIAL Performing Organization Address City/[facility]/Zipcode Phone Number [facility] CLIA: [id number] [place] [address] [place] [address] POCT GLUCOSE (AUTOMATED) (04/12/2020 3:25 AM CLIENT CARE MANAGER) Pathologist [facility] POCT GLU 96 70 - 110 mg/dL [facility] Specimen Blood Performing Organization Address City/[facility]/Zipcode Phone Number [facility] CLIA: [id number] [place] [address] [place] [address] CBC WITHOUT DIFF (04/12/2020 12:22 AM CLIENT CARE MANAGER) Pathologist Sig nature WBC 3.96 (L) 4.20 - 10.70 [facility] 10*3/L SERVICES RBC 2.43 (L) 4.26 - 5.52 [facility] 10*6/L SERVICES HGB 7.9 (L) 12.2 - 16.4 g/dL [facility] SERVICES HCT 24.2 (L) 38.4 - 49.3 % [facility] SERVICES MCH 32.5 26.1 - 32.7 pg [facility] SERVICES MCV 99.6 (H) 81.7 - 95.6 fL [facility] SERVICES MCHC 32.6 31.2 - 35.0 g/dL [facility] SERVICES PLT 118 (L) 150 - 328 10*3/L [facility] MPV 11.4 9.8 - 13.0 fL [facility] SERVICES RDW-CV 14.1 12.1 - 15.4 % [facility] SERVICES RDW-SD 51.1 38.5 - 51.6 fL [facility] SERVICES NRBC x10^3 <0.01 10*3/L [facility] NRBC/100 WBC 0.0 0.0 - 10.0 /100 [facility] WBCs SERVICES IPF % [facility] Specimen Blood - VENOUS Performing Organization Address City/State/Zipcode Phone Number [facility] CLIA: [id number] [place] [address] [place] [address] ABORH CONFIRMATION (04/11/2020 2:02 PM CLIENT CARE MANAGER) Pathologist Sig nature ABO & RH O Positive LAB Comment: Performed at [facility] Services - [place] [address] Toll Free: [phone] CLIA No. [id number] Specimen Performing Organization Address [facility] Phone Number BL LAB Type and Screen - ONCE STAT (04/11/2020 1:25 PM CLIENT CARE MANAGER) Pathologist Sig nature ABO & RH O POSITIVE LAB Comment: Performed at [facility] - [place] [address] Toll Free: [phone] CLIA No. [id number] IAT Negative LAB Comment: Performed at [facility] - [place] [address] Toll Free: [phone] CLIA No. [id number] Specimen VENOUS Performing Organization Address City/[facility]/Zipcode Phone Number [facility] FIBRINOGEN (04/11/2020 1:07 PM CLIENT CARE MANAGER) Pathologist Sig nature Fibrinogen 303 167 - 453 mg/dL [facility] Specimen Blood Performing Organization Address City/[facility]/Zipcode Phone Number [facility] CLIA: [id number] [place], [place] [address] [address] [facility] [place] ACTIVATED PARTIAL THRMPLAS SAMAN (04/11/2020 1:07 PM CLIENT CARE MANAGER) Pathologist Sig nature APTT Patient 28 26 - 36 Seconds [facility] Specimen Blood Performing Organization Address City/[facility] Centercode Phone Number [facility] CLIA: [id number] [place] [address] [phone] [facility] [place] Profile / Hemogram (04/11/2020 1:07 PM CLIENT CARE MANAGER) Pathologist Sig nature WBC 4.30 4.20 - 10.70 [facility] 10*3/L SERVICES RBC 2.57 (L) 4.26 - 5.52 [facility] 10*6/L SERVICES HGB 8.5 (L) 12.2 - 16.4 g/dL [facility] SERVICES HCT 25.8 (L) 38.4 - 49.3 % [facility] SERVICES MCH 33.1 (H) 26.1 - 32.7 pg [facility] SERVICES MCV 100.4 (H) 81.7 - 95.6 fL [facility] SERVICES MCHC 32.9 31.2 - 35.0 g/dL [facility] SERVICES PLT 128 (L) 150 - 328 10*3/L [facility] SERVICES MPV 10.9 9.8 - 13.0 fL [facility] SERVICES RDW-CV 13.7 12.1 - 15.4 % [facility] RDW-SD 50.4 38.5 - 51.6 fL [facility] NRBC x10^3 <0.01 10*3/L [facility] NRBC/100 WBC 0.0 0.0 - 10.0 /100 [facility] WBCs SERVICES IPF % [facility] Specimen Blood Performing Organization Address City/[facility]/Zipcode Phone Number [facility] CLIA: [id number] [place], [place] [address] [address] [facility] [place] Prothrombin Time / INR (04/11/2020 1:07 PM CLIENT CARE MANAGER) PROTIME PATIENT 14.2 (H) 10.1 - 12.6 [facility] Seconds SERVICES INR 1.2Comment: Normal [facility] INR <1.1; Warfarin SERVICES Therapeutic range 2.0 to 3.0 or 2.5 to 3.5, depending upon the indications. Specimen Blood Performing Organization Address City/State/Zipcode Phone Number [facility] CLIA: [id number] [place] [address] [place] [address] BASIC METABOLIC PANEL (NA, K, CL, CO2, GLUCOSE, BUN, CREATININE, CA) (04/11/2020 12:48 AM CLIENT CARE MANAGER) NA 135 135 - 145 [facility] mmol/L SERVICES K 4.6Comment: 3.5 - 5.0 [facility] Slight hemolysis mmol/L SERVICES CL 98 98 - 108 [facility] mmol/L SERVICES CO2 TOTAL 30 23 - 31 [facility] mmol/L SERVICES AGAP 7 2 - 16 [facility] SERVICES BUN 37 (H)Comment: 7 - 23 mg/dL [facility] Slight hemolysis SERVICES GLUCOSE 112 (H) 70 - 110 [facility] mg/dL SERVICES CREATININE 3.77 (H) 0.60 - 1.25 [facility] mg/dL SERVICES CALCIUM 9.5 8.6 - 10.6 [facility] mg/dL SERVICES eGFR Calculation 15.7 mL/min/1.73m2 [facility] (Non- SERVICES [place]) eGFR Calculation 19.0 mL/min/1.73m2 [facility] () SERVICES Specimen Blood - VENOUS Narrative Performed At Association of Glomerular Filtration Rate (GFR) and St aging [facility] SERVICES of Kidney Disease* + + +------- ------ + | GFR (mL/min/1.73 m2) | With Kidney Damage | Wi thout Kidney Damage + + +------- ------ + | >90 | Stage one | Normal + + +------- ------ + | 60-89 | Stage two | Decreased GFR + + +------- ------ + | 30-59 | Stage three | Stage three + + +------- ------ + | 15-29 | Stage four | Stage four + + +------- ------ + | <15 (or dialysis) | Stage five | Stage five + + +------- ------ + *Each stage assumes the associated GFR level has been in effect for at least three months. Stages 1 to 5, wit h or without kidney disease, indicate chronic kidney disease. Notes: Determination of stages one and two (with eGFR >59mL/min/1.73 m2) requires estimation of kidney damag e for at least three months as defined by structural or func tional abnormalities of the kidney, manifested by either: Pathological abnormalities or Markers of kidney damage (including abnormalities in the composition of the blo od or urine or abnormalities in imaging tests) . Performing Organization Address City/[facility] Centercode Phone Number [facility] CLIA: [id number] [place] [address] [phone] [facility] [place] Magnesium Serum (04/11/2020 12:48 AM CLIENT CARE MANAGER) Pathologist Sig nature MAGNESIUM 2.1 1.7 - 2.4 mg/dL [facility] Specimen Blood - VENOUS Performing Organization Address [facility] Phone Number [facility] CLIA: [id number] [place] [address] [phone] [facility] [place] aPTT (for use with Heparin Drip) (04/11/2020 12:48 AM CLIENT CARE MANAGER) Pathologist Sig nature APTT Patient 131 (HH) 26 - 36 Seconds [facility] Specimen Blood - VENOUS Performing Organization Address [facility] Phone Number [facility] CLIA: [id number] [place] [address] [phone] [facility] [place] ACTIVATED PARTIAL THRMPLAS SAMAN (04/10/2020 2:43 PM CLIENT CARE MANAGER) Pathologist Sig nature APTT Patient 28 26 - 36 Seconds [facility] Specimen Blood - ARM, RIGHT Performing Organization Address [facility] Phone Number [facility] CLIA: [id number] [place], [place] [address] [address] [facility] [place] PROTHROMBIN TIME / INR (04/10/2020 2:43 PM CLIENT CARE MANAGER) PROTIME PATIENT 13.5 (H) 10.1 - 12.6 [facility] Seconds SERVICES INR 1.2Comment: Normal [facility] INR <1.1; Warfarin SERVICES Therapeutic range 2.0 to 3.0 or 2.5 to 3.5, depending upon the indications. Specimen Blood - ARM, RIGHT Performing Organization Address [facility] Centercode Phone Number [facility] CLIA: [id number] [place] [id number] [address] [facility] [address] POCT GLUCOSE (AUTOMATED) (04/10/2020 11:25 AM CLIENT CARE MANAGER) Pathologist Sig nature POCT GLU 84 70 - 110 mg/dL [facility] Specimen Blood Performing Organization Address City/[facility] Phone Number [facility] CLIA: [id number] [place] [address] [place] [address] VITAMIN D, 25-OH (04/10/2020 11:23 AM CLIENT CARE MANAGER) Pathologist Sig nature VIT D 25OH 23 (L) 25 - 80 ng/mL [facility] Specimen Blood - ARM, LEFT Narrative Performed At Deficiency: <20 ng/mL [facility] Insufficiency: 20-24 ng/mL Optimal: 25-80 ng/mL Performing Organization Address [facility] Phone Number [facility] CLIA: [id number] [place] [address] [place] [address] INTACT PTH CALCIUM GROUP (04/10/2020 11:22 AM CLIENT CARE MANAGER) PTH-INTACT 65.6 12.0 - 88.0 [facility] pg/mL SERVICES PTH-CA Interpretation Comment: PTH IS [facility] Appropriate for SERVICES Calcium CALCIUM 9.2 8.6 - 10.6 [facility] mg/dL SERVICES Specimen Blood - ARM, LEFT Performing Organization Address [facility] Phone Number [facility] CLIA: [id number] [place] [address] [place] [address] IRON PANEL (04/10/2020 5:05 AM CLIENT CARE MANAGER) Pathologist Sig nature IRON 59 50 - 160 ug/dL [facility] TIBC 266 250 - 410 ug/dL [facility] % FE SAT 22 20 - 50 % [facility] Specimen Blood - VENOUS Performing Organization Address [facility] Centercode Phone Number [facility] CLIA: [id number] [place] [address] [place] [address] Hepatitis B Surface Antigen (HBsAg) (04/10/2020 5:05 AM CLIENT CARE MANAGER) Pathologist Sig nature HBsAg Negative Negative [facility] HBsAg 0.08 [facility] Semi-Quantitative SERVICES Specimen Blood - VENOUS Performing Organization Address City/[facility]/Zipcode Phone Number [facility] CLIA: [id number] [place] [address] [place] [address] Hepatitis B Surface Antibody (HBsAb) (04/10/2020 5:05 AM CLIENT CARE MANAGER) Pathologist Sig nature HBsAB Negative [facility] HBsAb 0.00 mIU/mL [facility] Semi-Quantitative SERVICES Specimen Blood - VENOUS Narrative Performed At Interpretation: Hepatitis B Surface An tibody [facility] Negative - Patient is considered to be not immu ne to infection with HBV. Positive - Anti-HBs detected at greater than or equal to 12 mIU/mL. Patient is considered to be immune to infection with HBV. Performing Organization Address City/[facility] Phone Number [facility] CLIA: [id number] [place] [address] [place] [address] FREE T4 (04/10/2020 5:05 AM CLIENT CARE MANAGER) Pathologist Sig [facility] FREE T4 0.55 (L) 0.78 - 2.20 ng/dL: [facility] ES Specimen Blood - VENOUS Performing Organization Address City/[facility] Cent[facility]ode Phone Number [facility] CLIA: [id number] [place] [address] [place] [address] BASIC METABOLIC PANEL (NA, K, CL, CO2, GLUCOSE, BUN, CREATININE, CA) (04/10/2020 5:04 AM CLIENT CARE MANAGER) NA 137 135 - 145 [facility] mmol/L SERVICES K 5.2 (H) 3.5 - 5.0 [facility] mmol/L SERVICES CL 102 98 - 108 mmol/L [facility] CO2 TOTAL 25 23 - 31 mmol/L [facility] AGAP 10 2 - 16 [facility] BUN 60 (H) 7 - 23 mg/dL [facility] GLUCOSE 96 70 - 110 mg/dL [facility] CREATININE 6.12 (H) 0.60 - 1.25 [facility] mg/dL SERVICES CALCIUM 9.2 8.6 - 10.6 [facility] mg/dL SERVICES eGFR Calculation 9.0 mL/min/1.73m2 [facility] (Non- SERVICES [place]) eGFR Calculation 10.9 mL/min/1.73m2 [facility] () SERVICES Specimen Blood - VENOUS Narrative Performed At Association of Glomerular Filtration Rate (GFR) and St aging [facility] of Kidney Disease* + + +------- ------ + | GFR (mL/min/1.73 m2) | With Kidney Damage | Wi thout Kidney Damage + + +------- ------ + | >90 | Stage one | Normal + + +------- ------ + | 60-89 | Stage two | Decreased GFR + + +------- ------ + | 30-59 | Stage three | Stage three + + +------- ------ + | 15-29 | Stage four | Stage four + + +------- ------ + | <15 (or dialysis) | Stage five | Stage five + + +------- ------ + *Each stage assumes the associated GFR level has been in effect for at least three months. Stages 1 to 5, wit h or without kidney disease, indicate chronic kidney disease. Notes: Determination of stages one and two (with eGFR >59mL/min/1.73 m2) requires estimation of kidney damag e for at least three months as defined by structural or func tional abnormalities of the kidney, manifested by either: Pathological abnormalities or Markers of kidney damage (including abnormalities in the composition of the blo od or urine or abnormalities in imaging tests) . Performing Organization Address [facility] Centercode Phone Number [facility] CLIA: [id number] [place], [place] [id number] [address] [facility] [place] Magnesium Serum (04/10/2020 5:04 AM CLIENT CARE MANAGER) Pathologist Sig nature MAGNESIUM 2.3 1.7 - 2.4 mg/dL [facility] Specimen Blood - VENOUS Performing Organization Address [facility] Centercoil Phone Number [facility] CLIA: [id number] [place] [address] [place] [address] THYROID STIMULATING HORMONE (04/09/2020 11:13 PM CLIENT CARE MANAGER) Pathologist Sig nature TSH 90.70 (H) 0.45 - 4.70 mIU/L [facility] S Specimen Blood - VENOUS Performing Organization Address [facility] Phone Number [facility] CLIA: [id number] [place] [id number] [address] [facility] [place] Troponin I (04/09/2020 11:13 PM CLIENT CARE MANAGER) Pathologist Sig nature TROPONIN I 0.128 (H) <=0.034 ng/mL [facility] Specimen Blood - VENOUS Narrative Performed At Equal or Less than 0.034 ng/ml---Normal [facility] Note: Cardiac troponin begins to rise 3-4 hours after the onset of ischemia. Repeat in 4-6 hours if the sample w as drawn within 3-4 hours of the onset of the symptom and found normal. Between 0.035 and 0.120 ng/mL--- Borderline. Questiona ble myocardial injury or necrosis Note: Serial measurement may be necessary to confirm o r exclude the diagnosis of myocardial injury or necrosis ; Clinical correlation (symptoms, EKGs, imaging studies, and others) required; Repeat in 4-6 hours if clinically indicated. Equal or Higher than 0.121 ng/mL---Abnormal. Myocardia l Injury or Necrosis Likely Biotin has been reported to cause a negative bias, int erpret results relative to patient's use of biotin. Performing Organization Address City/[facility] Phone Number [facility] CLIA: [id number] [place] [address] [phone] [facility] [place] aPTT (04/09/2020 6:18 PM CLIENT CARE MANAGER) Pathologist Sig rey APTT Patient 29 26 - 36 Seconds [facility] Specimen Blood - ARM, RIGHT Performing Organization Address [facility] Phone Number [facility] CLIA: [id number] [place] [address] [phone] [facility] [place] Prothrombin Time (PT) / INR (04/09/2020 6:18 PM CLIENT CARE MANAGER) PROTIME PATIENT 13.4 (H) 10.1 - 12.6 [facility] Seconds SERVICES INR 1.2Comment: Normal [facility] INR <1.1; Warfarin SERVICES Therapeutic range 2.0 to 3.0 or 2.5 to 3.5, depending upon the indications. Specimen Blood - ARM, RIGHT Performing Organization Address [facility] Phone Number [facility] CLIA: [id number] [place] [address] [phone] [facility] [place] [place] FREE T3 (04/09/2020 4:59 PM CLIENT CARE MANAGER) Pathologist Sig nature FREE T3 2.24 (L) 2.77 - 5.27 pg/mL [facility]ICE S Specimen Blood - ARM, RIGHT Performing Organization Address [facility] Centercode Phone Number [facility] CLIA: [id number] [place] [address] [place] [address] TROPONIN I (04/09/2020 4:59 PM CLIENT CARE MANAGER) Pathologist Sig nature TROPONIN I 0.125 (H) <=0.034 ng/mL [facility] Specimen Blood - ARM, RIGHT Narrative Performed At Equal or Less than 0.034 ng/ml---Normal [facility] Note: Cardiac troponin begins to rise 3-4 hours after the onset of ischemia. Repeat in 4-6 hours if the sample w as drawn within 3-4 hours of the onset of the symptom and found normal. Between 0.035 and 0.120 ng/mL--- Borderline. Questiona ble myocardial injury or necrosis Note: Serial measurement may be necessary to confirm o r exclude the diagnosis of myocardial injury or necrosis ; Clinical correlation (symptoms, EKGs, imaging studies, and others) required; Repeat in 4-6 hours if clinically indicated. Equal or Higher than 0.121 ng/mL---Abnormal. Myocardia l Injury or Necrosis Likely Biotin has been reported to cause a negative bias, int erpret results relative to patient's use of biotin. Performing Organization Address [facility] Phone Number [facility] CLIA: [id number] [place] [address] [place] [address] LAB ONLY COVID INTERPRETATION (04/09/2020 1:36 PM CLIENT CARE MANAGER) COVID DMT Interpretation/Recommendations: [facility] Interpretation SERVICES Molecular NAAT Tests for Active Infection with the CONSTANTINO S-CoV-2 Virus: This result indicates that t he patient has tested negative on one occasion for the SARS-CoV-2 virus that causes COVID-19 illness. This most likely indicates that the patient does not have an active infe ction with the SARS-CoV-2 vi prince. However, infection is not completely ruled out as the false negative rate for molecular NAAT testing using a nasopharyngeal sample can be up to 30%, mostly dependent on the timing of sample collect ion in relation to illness onset and any deficiencies in sampling techniques. If the patient has symptoms concerning for COVID-19 illness, a repeat NAAT test (PCR, Rapid ID N ow, etc.) should be performe d, at which time the SARS-CoV-2 virus - if present - may have reached a detectable viral load (usually peaking by the end of the first week of symptoms). Tests for IgM and/or IgG Antibodies to SARS-CoV-2 Viru s: Testing for IgM and IgG anti bodies 1-3 weeks after illness onset will indicate whether the patient has produced antibodies to the virus. At this time, it is not known if the production of antibodies - s pecifically IgG antibodies - indicates whether the patient is immune to future infections with the SARS-CoV-2 virus. Interpretation Result Comments: These interpretation comment s are based upon all COVID-19 testing the patient has had at [facility], including molecular NAAT testing (more commonly known as PCR testing and Rapid ID Now testing) and antibody testing. It does not take i nto account any testing that a patient has had outside of the [facility] medical record. COVID Results SARS-CoV-2 Rapid ID NOW (no units) [facility] Date Value SERVICES 04/09/2020 Not Detected Specimen Swab - NASOPHARYNGEAL SWAB Performing Organization Address City/State/Zipcode Phone Number [facility] CLIA: [id number] [place] [address] [place] [address] COVID-19 (ID NOW RAPID TESTING) (04/09/2020 1:36 PM CLIENT CARE MANAGER) [facility] Signature SARS-CoV-2 Rapid ID Not Detected Not Detected [facility] Specimen Swab - NASOPHARYNGEAL SWAB Narrative Performed At MA NOW COVID-19 Assay is an isothermal nucleic [facility] acid amplification test intended for the qualitative detection of nucleic acid from SARS-CoV-2 viral RNA in nasopharyngeal (PRODUCE SPECIALIST) specimens. It is used under Emergency Use Authorization (EUA) by FDA. The limit of detection (LOD) of the assay is 125 Genome Equivalents/mL. A positive result is indicative of the presence of SARS-CoV-2 RNA. Clinical correlation with patient history and other diagnostic information is necessary to determine patient infection status. A negative (Not Detected) result does not preclude SARS-CoV-2 infection. In patients with clinical symptoms and other tests that are consistent with SARS-CoV-2 infection, negative results should be treated as presumptive negative and a new specimen should be tested with alternative PCR molecular test. Invalid: Please collect a new specimen for repeat patient testing if clinically indicated. Performing Organization Address [facility] Centercode Phone Number [facility] CLIA: [id number] [place] [address] XR CHEST 1 VW (04/09/2020 12:50 PM CLIENT CARE MANAGER) Specimen Narrative Performed At CHEST ONE VIEW PACS/VR/DOSE HISTORY: Syncope TECHNIQUE: AP view of the chest is obt ained. FINDINGS: Increased central pulmonary va scularity is noted along with increased interstitial markings in the l stephanie bases. Heart size is enlarged. Blunting of the left costophrenic angle is seen. Changes of median sternotomy are noted. CONCLUSIONS: 1. Pulmonary edema, cardiomegaly and left pleural effu noreen Procedure Note [facility], Radiant Results Inft User - 2020 12:55 PM CLIENT CARE MANAGER CHEST ONE VIEW HISTORY: Syncope TECHNIQUE: AP view of the chest is obta ined. FINDINGS: Increased central pulmonary va scularity is noted along with increased interstitial markings in the l stephanie bases. Heart size is enlarged. Blunting of the left costophrenic angle is seen. Changes of median sternotomy are noted. CONCLUSIONS: 1. Pulmonary edema, cardiomegaly and lef t pleural effusion Performing Organization Address City/[facility]/Zipcode Phone Number PACS/VR/DOSE Thyroid Stimulating Hormone (TSH) (04/09/2020 12:41 PM CLIENT CARE MANAGER) Pathologist Sig nature TSH 123.00 (H) 0.45 - 4.70 mIU/L [facility] Specimen Blood - VENOUS Performing Organization Address City/[facility]/Zipcode Phone Number [facility] CLIA: [id number] [place] [address] Glycosylated Hemoglobin (A1C) (04/09/2020 12:41 PM CLIENT CARE MANAGER) Pathologist Sig nature HGB A1C 5.2 4.0 - 6.0 % [facility] Specimen Blood - VENOUS Narrative Performed At %A1C (NGSP) Interpretation (ADA) [facility] 4.8-5.6 Normal or (Non-Diabetic Ra nge) 5.7-6.4 Increased Risk (Pre-Diabet ic) >6.5 Diabetes Indicated Performing Organization Address [facility] Phone Number [facility] CLIA: [id number] [place] [address] N-TERMINAL PRO-BNP (04/09/2020 12:41 PM CLIENT CARE MANAGER) Pathologist Sig nature NT-proBNP 194,000 (H) <=450 pg/mL [facility] Specimen Blood - VENOUS Narrative Performed At Biotin has been reported to cause a negative [facility] bias, interpret results relative to patient's use of biotin. Performing Organization Address [facility] Phone Number [facility] CLIA: [id number] [place] [address] MAGNESIUM (04/09/2020 12:41 PM CLIENT CARE MANAGER) Pathologist Sig nature MAGNESIUM 2.1 1.7 - 2.4 mg/dL [facility] Specimen Blood - VENOUS Performing Organization Address [facility] Centercode Phone Number [facility] CLIA: [id number] [place] [address] TROPONIN I (04/09/2020 12:41 PM CLIENT CARE MANAGER) Pathologist Sig nature TROPONIN I 0.134 (H) <=0.034 ng/mL [facility] Specimen Blood - VENOUS Narrative Performed At Equal or Less than 0.034 ng/ml---Normal [facility] Note: Cardiac troponin begins to rise [...] biotin. Performing Organization Address City/State/Zipcode Phone Number [facility] CLIA: [id number] [place] [address] COMP. METABOLIC PANEL (84624) (04/09/2020 12:41 PM CLIENT CARE MANAGER) NA 136 135 - 145 [facility] mmol/L [facility] K 5.2 (H) 3.5 - 5.0 [facility] mmol/L [facility] CL 99 98 - 108 mmol/L [facility] CO2 TOTAL 28 23 - 31 mmol/L [facility] AGAP 9 2 - 16 [facility] BUN 50 (H) 7 - 23 mg/dL [facility] GLUCOSE 116 (H) 70 - 110 mg/dL [facility] CREATININE 5.34 (H) 0.60 - 1.25 [facility] mg/dL [facility] TOTAL BILI 0.7 0.1 - 1.1 mg/dL [facility] CALCIUM 9.5 8.6 - 10.6 [facility] mg/dL [facility] T PROTEIN 6.9 6.3 - 8.2 g/dL [facility] ALBUMIN 3.9 3.5 - 5.0 g/dL [facility] ALK PHOS 91 34 - 122 U/L [facility] ALTv 27 5 - 50 U/L [facility] AST(SGOT) 24 13 - 40 U/L [facility] eGFR Calculation 10.5 mL/min/1.73m2 [facility] ([facility] LABORATORY [place]) eGFR Calculation 12.7 mL/min/1.73m2 [facility] ([facility] LABORATORY Specimen Blood - VENOUS Narrative Performed At Association of Glomerular Filtration Rate (GFR) [facility] and Staging of Kidney Disease* [...] tests). Performing Organization Address City/State/Zipcode Phone Number [facility] CLIA: [id number] [place] [address] CBC WITH DIFF (04/09/2020 12:41 PM CLIENT CARE MANAGER) Pathologist Sig nature WBC 5.35 4.20 - 10.70 [facility] 10*3/L [facility] RBC 2.86 (L) 4.26 - 5.52 [facility] 10*6/L [facility] HGB 9.4 (L) 12.2 - 16.4 [facility] g/dL [facility] HCT 28.9 (L) 38.4 - 49.3 % [facility] MCV 101.0 (H) 81.7 - 95.6 fL [facility] MCH 32.9 (H) 26.1 - 32.7 pg [facility] MCHC 32.5 31.2 - 35.0 [facility] g/dL [facility] RDW-SD 51.1 38.5 - 51.6 fL [facility] RDW-CV 13.8 12.1 - 15.4 % [facility] PLT 130 (L) 150 - 328 [facility] 10*3/L HOSPITAL LABORATORY MPV 11.0 9.8 - 13.0 fL [facility] NRBC/100 WBC 0.0 0.0 - 10.0 /100 [facility] WBCs [facility] NRBC x10^3 <0.01 10*3/L [facility] GRAN MAT (NEUT) % 73.8 % [facility] IMM GRAN % 0.20 % [facility] LYMPH % 14.4 % [facility] MONO % 8.2 % [facility] EOS % 3.0 % [facility] BASO % 0.4 % [facility] GRAN MAT x10^3(ANC) 3.95 1.99 - 6.95 [facility] 10*3/uL [facility] IMM GRAN x10^3 <0.03 0.00 - 0.06 [facility] 10*3/uL [facility] LYMPH x10^3 0.77 (L) 1.09 - 3.23 [facility] 10*3/uL HOSPITAL LABORATORY MONO x10^3 0.44 0.36 - 1.02 [facility] 10*3/uL [facility] EOS x10^3 0.16 0.06 - 0.53 [facility] 10*3/uL HOSPITAL LABORATORY BASO x10^3 <0.03 0.01 - 0.09 [facility] 10*3/uL [facility] Specimen Blood - VENOUS Performing Organization Address City/State/Zipcode Phone Number [facility] CLIA: [id number] [place] [address] documented in this encounter Visit Diagnoses Diagnosis Hematemesis without nausea - Primary Syncope and collapse NSTEMI (non-ST elevated myocardial infar ction) Acute myocardial infarction, subendocard ial infarction, episode of care unspecified Aortic valve stenosis, etiology of cardi ac valve disease unspecified Thrombocytopenia Thrombocytopenia, unspecified ESRD (end stage renal disease) on dialys is End stage renal disease Status post balloon aortic valvuloplasty Other postprocedural status documented in this encounter Administered Medications Medication Order MAR Action Action Date Dose Rate Site acetaminophen (TYLENOL) tablet Given 04/11/2020 12:50 AM CLIENT CARE MANAGER 650 mg 650 mg 650 mg, Oral, Q6HPRN, Starting 04/09/20 at 1651, Until Discontinued, Routine, Pain (scale 1-3) aspirin chewable tablet 81 mg Given 04/18/2020 9:15 AM CLIENT CARE MANAGER 81 mg 81 mg, Enteral, DAILY, First dose (after last modification) on Fri04/12/20 at 0900, Until Discontinued, Routine Given 04/17/2020 9:00 AM CLIENT CARE MANAGER 81 mg Given 04/16/2020 9:00 AM CLIENT CARE MANAGER 81 mg atorvastatin (LIPITOR) tablet 80 mg Given 04/17/2020 8:55 PM CLIENT CARE MANAGER 80 mg 80 mg, Enteral, QHS, First dose (after last modification) on Fri04/12/20 at 2100, Until Discontinued, Routine Given 04/16/2020 8:51 PM CLIENT CARE MANAGER 80 mg Given 04/15/2020 9:15 PM CLIENT CARE MANAGER 80 mg carvediloL (COREG) tablet 6.25 mg Given 04/18/2020 9:15 AM CLIENT CARE MANAGER 6.25 mg 6.25 mg, Oral, BID MEALS, First dose (after last modification) on Fri04/18/20 at 0800, Until Discontinued, Routine clopidogreL (PLAVIX) tablet 75 mg Given 04/18/2020 9:15 AM CLIENT CARE MANAGER 75 mg 75 mg, Enteral, DAILY, First dose (after last modification) on Fri04/12/20 at 0900, Until Discontinued, Routine Given 04/17/2020 8:05 AM CLIENT CARE MANAGER 75 mg Given 04/16/2020 9:01 AM CLIENT CARE MANAGER 75 mg dextrose 50 % in water (D50W) injection 25 mL 25 mL, Slow IV Push, PRN, Starting Fri at 0355, Until Discontinued, JACKELINE, Blood Glucose < or = 70 mg/dL and patien t is unable to swallow or has mental status changes. heparin (PF) 1,000 unit/mL injection 2,0 00 Units 2,000 Units, Slow IV Push, SEE-INSTRUCTI ONS, 2 doses, Starting Fri04/17/20 at 1013, Until Discontinued, Routine heparin (porcine) injection Given 04/18/2020 9:15 AM CLIENT CARE MANAGER 5,000 Units Abdomen-SC 5,000 Units 5,000 Units, Subcutaneous, Q12H, First dose on Fri04/15/20 at 0800, Until Discontinued, Routine Given 04/17/2020 1:54 PM CLIENT CARE MANAGER 6,000 Units Given 04/17/2020 1:51 PM CLIENT CARE MANAGER 2,000 Units levothyroxine (SYNTHROID) tablet 50 mcg Given 04/18/2020 5:20 AM CLIENT CARE MANAGER 50 mcg 50 mcg, Oral, QAM-0600, First dose on Fri04/10/20 at 1745, Until Discontinued, Routine Given 04/17/2020 5:34 AM CLIENT CARE MANAGER 50 mcg Given 04/16/2020 6:07 AM CLIENT CARE MANAGER 50 mcg lisinopriL (PRINIVIL,ZESTRIL) tablet 5 m g Given 04/18/2020 9:15 AM CLIENT CARE MANAGER 5 mg 5 mg, Oral, DAILY, First dose on Fri04/17/20 at 1545, Until Discontinued, Routine ondansetron (ZOFRAN (PF)) injection 4 mg Given 04/17/2020 8:51 PM CLIENT CARE MANAGER 4 mg 4 mg, Slow IV Push, Q6HPRN, Starting 04/09/20 at 1651, Until Discontinued, Routine, Nausea and Vomiting (N/V) Given 04/16/2020 4:26 AM CLIENT CARE MANAGER 4 mg Given 04/11/2020 8:04 AM CLIENT CARE MANAGER 4 mg pantoprazole (PROTONIX) 40 mg in NaCl 0.9% Given 04/18/2020 9:2 2 AM CLIENT CARE MANAGER 40 mg (NS) 100 mL MINI-BAG 40 mg, IV Piggyback, Q12H, First dose on Fri04/12/20 at 1415, Until Discontinued, 100 mL Given 04/17/2020 8:54 PM CLIENT CARE MANAGER 40 mg Given 04/17/2020 8:05 AM CLIENT CARE MANAGER 40 mg Medication Order MAR Action Action Date Dose Rate Site aspirin chewable tablet 81 mg Given 04/11/2020 7:58 AM CLIENT CARE MANAGER 81 mg 81 mg, Oral, DAILY, First dose on Fri04/10/20 at 0900, Until Discontinued, Routine Given 04/10/2020 2:11 PM CLIENT CARE MANAGER 81 mg atorvastatin (LIPITOR) tablet 80 mg Given 04/11/2020 8:05 PM CLIENT CARE MANAGER 80 mg 80 mg, Oral, QHS, First dose on 04/09/20 at 2100, Until Discontinued, Routine Given 04/10/2020 9:03 PM CLIENT CARE MANAGER 80 mg Given 04/09/2020 8:29 PM CLIENT CARE MANAGER 80 mg clopidogreL (PLAVIX) tablet 300 mg Given 04/10/2020 2:39 PM CLIENT CARE MANAGER 300 mg 300 mg, Oral, ONCE, 1 dose, Fri04/10/20 at 1530, Routine clopidogreL (PLAVIX) tablet 300 mg Given 04/17/2020 3:42 PM CLIENT CARE MANAGER 300 mg 300 mg, Oral, ONCE, 1 dose, Fri04/17/20 at 1445, Routine, landscape crew member approving Restricted medication: QUIQUE DISLA clopidogreL (PLAVIX) tablet 75 mg Given 04/11/2020 4:58 PM CLIENT CARE MANAGER 75 mg 75 mg, Oral, DAILY, First dose on Fri04/11/20 at 1200, Until Discontinued, Routine epoetin janeen-epbx (RETACRIT) injection Given 5:37 PM CLIENT CARE MANAGER 8,000 Units 8,000 Units 8,000 Units, Intravenous, DIALYSIS ONCE - MICHAEL [facility]SU, 1 dose, Fri04/17/20 at 1030, Routine, landscape crew member approving Restricted medication: JONH JUAREZ FENTanyl PF (SUBLIMAZE (PF)) injection Given 04/11/2020 9:57 AM CLIENT CARE MANAGER 25 mcg Slow IV Push, TITRATE - FOR PROCEDURE USE, 1 dose, Starting Fri04/11/20 at 0957, Until Fri04/11/20 at 0957, Routine FENTanyl PF (SUBLIMAZE (PF)) injection Given 04/11/2020 10:04 AM CLIENT CARE MANAGER 25 mcg Slow IV Push, TITRATE - FOR PROCEDURE USE, 1 dose, Starting Fri04/11/20 at 1004, Until Fri04/11/20 at 1004, Routine FENTanyl PF (SUBLIMAZE (PF)) injection Given 04/11/2020 10:17 AM CLIENT CARE MANAGER 25 mcg Slow IV Push, TITRATE - FOR PROCEDURE USE, 1 dose, Starting Fri04/11/20 at 1017, Until Fri04/11/20 at 1017, Routine fentaNYL PF (SUBLIMAZE) STD 2,500 New Bag 04/12/2020 4:47 AM CLIENT CARE MANAGER 50 mcg/hr 5 mL/hr mcg in NaCl 0.9% (NS) 250 mL infusion RTU 25-200 mcg/hr (2.5-20 mL/hr), IV Infusion, TITRATE, CPOT/Pain Scale Goals Determined by Provider, Starting Fri04/12/20 at 0447, Initiate infusion at 25 mcg/hr. Titrate by 25 mcg/hr every 1 minute to 15 minutes to identified goal pain and/or sedation scores. Maximum dose = 200 mcg/hr. If goal not maintained at maximum allowed dose, contact prescriber., furosemide (LASIX) injection 40 mg Given 04/09/2020 8:29 PM CLIENT CARE MANAGER 40 mg 40 mg, Slow IV Push, ONCE, 1 dose, [place] 04/09/20 at 2030, Routine heparin (porcine) injection 60 Units/kg Given 04/09/19 6:21 PM CLIENT CARE MANAGER 4,000 Units IV Bolus (Maximum 4,000 units) 4,000 Units, IV Push, ONCE, 1 dose, [place] 04/09/20 at 1745, Routine heparin (porcine) injection 60 Units/kg Given 04/10/19 6:11 PM CLIENT CARE MANAGER 4,000 Units IV Bolus (Maximum 4,000 units) 4,000 Units, IV Push, ONCE, 1 dose, [facility] 04/10/20 at 1730, Routine heparin 25,000 Units/250 mL (Premixed Ba g) in 0.45 % NS New 04/09/2020 12 8.6 12 Units/kg/hr Bag 6:22 PM CLIENT CARE MANAGER Units/kg/hr mL/hr 71.7 kg (8.604 mL/hr, rounded to 8.6 mL/hr), IV Infusion, TITRATE, Parameters in Admin. Instr., Starting [place] 04/09/20 at 1833, CAUTION - If LMWH given in ER, AVOID bolus and start next dose/drip 12 hrs after ER dosage. Must program rate using programmable infusion pump. Check with the ordering provider first prior to any administration should the patient be on existing/additional anticoagulant therapy. Range, Dosing and Testing: FOR [facility], [facility], AND [facility] ONLY - aPTT < 35: Bolus 5000 units, increase rate 300 units/hr - aPTT 35-44: Bolus 3000 units, increase rate 200 units/hr - aPTT 45-54: Increase rate 100 units/hr - aPTT 55-85: NO CHANGE - aPTT 86-95: Decrease rate 100 units/hr - aPTT 96-120: Hold 30 minutes, decrease rate 150 units/hr - aPTT > 120: Hold 60 minutes, decrease rate 200 units/hr Check aPTT 6 hours after initiation, then Q6H after every change, aPTT Q12H once therapeutic levels are reached. FOR [facility] ONLY - aPTT < 40: Bolus 5000 units, increase rate 300 units/hr - aPTT 40-49: Bolus 3000 units, increase rate 200 units/hr - aPTT 50-59: Increase rate 100 units/hr - aPTT 60-85: NO CHANGE - aPTT 86-95: Decrease rate 100 units/hr - aPTT 96-120: Hold 30 minutes, decrease rate 150 units/hr - aPTT > 120: Hold 60 minutes, decrease rate 200 units/hr Check aPTT 6 hours after initiation, then Q6H after every change, aPTT Q12H once therapeutic levels are reached. DO NOT ADJUST INITIAL BOLUS OR INITIAL INFUSION RATE., heparin 25,000 Units/250 mL (Premixed Ba g) in 0.45 % NS Rate 04/11/2020 9.143 6.4 12 Units/kg/hr Change 2:32 AM CLIENT CARE MANAGER Units/kg/hr mL/hr 70 kg (8.4 mL/hr), IV Infusion, TITRATE, Parameters in Admin. Instr., Starting 04/10/20 at 1825, CAUTION - If LMWH given in ER, AVOID bolus and start next dose/drip 12 hrs after ER dosage. Must program rate using programmable infusion pump. Check with the ordering provider first prior to any administration should the patient be on existing/additional anticoagulant therapy. Range, Dosing and Testing : _ FOR [facility], [facility], AND [facility] - aPTT < 35: Bolus 500 0 units, increase rate 300 units/hr - aPTT 35-44: Bolus 3000 units, increase rate 200 units/hr - aPTT 45-54: Increase rate 100 units/hr - aPTT 55-85: NO CHANGE - aPTT 86-95: Decrease rate 100 units/hr - aPTT 96-120: Hold 30 minutes, decrease rate 150 units/hr - aPTT > 120: Hold 60 minutes, decrease rate 200 units/hr Check aPTT 6 hours after initiation, then Q6H after every change, aPTT Q12H once therapeutic levels are reached. _ FOR [facility] ONLY - aPTT < 40: Bolus 5000 units, increase rate 3 00 units/hr - aPTT 40-49: Bolus 3000 units, increase rate 200 units/hr - aPTT 50-59: Increase rate 100 units/hr - aPTT 60-85: NO CHANGE - aPTT 86-95: Decrease rate 100 units/hr - aPTT 96-120: Hold 30 minutes, decrease rate 150 units/hr - aPTT > 120: Hold 60 minutes, decrease rate 200 units/hr Check aPTT 6 hours after initiation, then Q6H after every change, aPTT Q12H once therapeutic levels are reached . DO NOT ADJUST INITIAL BOLUS OR INITIAL INFUSION RATE., New Bag 04/10/2020 6:11 PM CLIENT CARE MANAGER 12 Units/kg/hr 8.4 mL/hr heparin 25,000 Units/250 mL New Bag 04/14/2020 1:25 PM 12 Uni ts/kg/hr 8.28 mL/hr (Premixed Bag) in 0.45 % NS CLIENT CARE MANAGER 12 Units/kg/hr 69 kg (8.28 mL/hr), IV Infusion, TITRATE, Parameters in Admin. Instr., Starting Fri04/14/20 at 1052, CAUTION - If LMWH given in ER, AVOID bolus and start next dose/drip 12 hrs after ER dosage. Must program rate using programmable infusion pump. Check with the ordering provider first prior to any administration should the patient be on existing/additional anticoagulant therapy. Range, Dosing and Testing - aPTT < 40: Bolus 3000 units, increase rate 100 units/hr. - aPTT 40-49: Increase rate 50 units/hr. - aPTT 50-70: NO CHANGE. - aPTT 71-85: Decrease rate 50 units/hr. - aPTT 86-100: Hold 30 minutes, decrease rate 100 units/hr. - aPTT 101-150: Hold 60 minutes, decrease rate 150 units/hr. - aPTT > 150: Hold 60 minutes, decrease rate 300 units/hr. Check aPTT 6 hours after initiation, then Q6H after every change, aPTT Q12H once therapeutic levels are reached. DO NOT ADJUST INITIAL BOLUS OR INITIAL INFUSION RATE., KCL (KLOR-CON M20) tablet 40 mEq Given 04/15/2020 5:47 AM CLIENT CARE MANAGER 40 mEq 40 mEq, Oral, ONCE TODAY, 1 dose, 04/15/20 at 0600, Routine KCL (POTASSIUM CHLORIDE) 40 mEq in NaCl 0.9% Given 10:13 PM CLIENT CARE MANAGER 40 mEq (NS) piggyback 40 mEq, IV Piggyback, ONCE, 1 dose, [facility] 04/12/20 at 2230, 250 mL KCL (POTASSIUM CHLORIDE) 40 mEq in NaCl 0.9% Given 3:57 AM CLIENT CARE MANAGER 40 mEq (NS) piggyback 40 mEq, IV Piggyback, ONCE, 1 dose, [facility] 04/13/20 at 0030, 250 mL lidocaine 1% (PF) (XYLOCAINE) injection Given 04/11/2020 10:04 AM CLIENT CARE MANAGER 10 mL Infiltration, TITRATE - FOR PROCEDURE USE, 1 dose, Starting Fri04/11/20 at 1004, Until Tu04/11/20 at 1004, Routine lisinopriL (PRINIVIL,ZESTRIL) tablet 2.5 mg Given 04/11/2020 7:58 AM CLIENT CARE MANAGER 2.5 mg 2.5 mg, Oral, DAILY, First dose on Fri04/10/20 at 0900, Until Discontinued, Routine Given 04/10/2020 2:11 PM CLIENT CARE MANAGER 2.5 mg midazolam (PF) (VERSED) STD 50 mg New Bag 04/12/2020 4:47 AM CLIENT CARE MANAGER 1 mg/hr 1 mL/hr in NaCl 0.9% (NS) 50 mL infusion RTU 1-10 mg/hr (1-10 mL/hr), IV Infusion, TITRATE, Sedation-RASS score (0 to -1), Starting Fri04/12/20 at 0447, Initiate infusion at 1 mg/hr and titrate by 1 mg/hr every 3 minutes to 10 minutes to goal sedation score. Maximum dose = 10 mg/hr. If goal not maintained at maximum allowed dose, contact prescriber., midazolam (VERSED) injection Given 04/11/2020 9:57 AM CLIENT CARE MANAGER 1 mg IV Push, TITRATE - FOR PROCEDURE USE, 1 dose, Starting Fri04/11/20 at 0957, Until Fri04/11/20 at 0957, Routine midazolam (VERSED) injection Given 04/11/2020 10:04 AM CLIENT CARE MANAGER 1 mg IV Push, TITRATE - FOR PROCEDURE USE, 1 dose, Starting Fri04/11/20 at 1004, Until Fri04/11/20 at 1004, Routine NaCl 0.9% (NS) bolus infusion 500 New Bag 04/09/2020 12:49 PM CLIENT CARE MANAGER 500 mL 999 mL/hr mL at 999 mL/hr, 500 mL, IV Infusion, ONCE, 1 dose, [place] 04/09/20 at 1245, STAT ondansetron (ZOFRAN (PF)) injection 4 mg Given 04/17/2020 4:25 PM CLIENT CARE MANAGER 4 mg 4 mg, Slow IV Push, ONCE, 1 dose, Fri04/17/20 at 1730, Routine pantoprazole (PROTONIX) 80 mg in NaCl 0.9% Given 04/11/2020 4:5 7 PM CLIENT CARE MANAGER 80 mg (NS) 20 mL syringe 80 mg, IV Push, ONCE, 1 dose, Fri04/11/20 at 1315, 20 mL pantoprazole (PROTONIX) 80 mg in New Bag 04/12/2020 2:[address] 8 mg/hr 50 mL/hr NaCl 0.9% (NS) 500 mL infusion 8 mg/hr (50 mL/hr), IV Infusion, CONTINUOUS, Starting Fri04/11/20 at 1315 New Bag 04/11/2020 4:57 PM CLIENT CARE MANAGER 8 mg/hr 50 mL/hr pantoprazole (PROTONIX) EC tablet 40 mg Given 04/11/2020 7:58 AM CLIENT CARE MANAGER 40 mg 40 mg, Oral, DAILY, First dose on 04/09/20 at 1830, Until Discontinued, Routine Given 04/10/2020 2:11 PM CLIENT CARE MANAGER 40 mg Given 04/09/2020 6:30 PM CLIENT CARE MANAGER 40 mg perflutren lipid microspheres (DEFINITY) Given 04/12/2020 1:00 PM CLIENT CARE MANAGER 2 mL injection 2 mL 2 mL, IV Push, ONCE, 1 dose, 04/12/20 at 1300, Routine perflutren protein-A microsphr (OPTISON) Given 04/10/2020 3:30 PM CLIENT CARE MANAGER 3 mL injection 3 mL 3 mL, IV Push, ONCE, 1 dose, 04/10/20 at 1845, Routine traMADoL (ULTRAM) tablet 50 mg Given 04/11/2020 2:15 AM CLIENT CARE MANAGER 50 mg 50 mg, Oral, ONCE, 1 dose, 04/11/20 at 0245, Routine trimethobenzamide (TIGAN) injection Given 04/14/2020 5:41 AM CS T 100 mg Abdomen-SC 100 mg 100 mg, Intramuscular, ONCE, 1 dose, 04/14/20 at 0615, Routine documented in this encounter Additional Health Concerns Infection Onset Date Last Indicated Resolved Time COVID-19 Rule Out 04/09/2020 04/09/2020 04/09/2020 2: 12 PM CLIENT CARE MANAGER COVID-19 Rule Out 04/16/2020 04/16/2020 04/16/2020 3: 26 PM CLIENT CARE MANAGER documented as of this encounter Insurance Payer Benefit Plan / Subscriber ID Effective Dates Phone Addre ss Type Group [id number] 2020-Present Medicare Adv spring HMO documented as of this encounter
--- OUTSIDE RECORDS SUMMARY | 2020-04-20 12:53 | XMS REPORT | Summary of Care ---
:1945 Author Organization [facility] Address [address] [place] [id number] Care Team Providers Name Role Phone Franklin Corado Primary Care Provider Reason for Visit Reason Comments Transition Of Care Encounter Details Date Type Department Care Team Description 04/19/2020 Transition of Care [facility] Donna Valencia Transition Of Care [facility] RN [phone] Allergies No Known Allergiesdocumented as of this encounter (statuses as of 04/19/2020) Medications Medication Sig Dispensed Refills Start Date [...] as of this encounter (statuses as of 04/19/2020) Active Problems Problem Noted Date Syncope and collapse 04/09/2020 Hematemesis without nausea 04/09/2020 Overview: Added automatically from request for festus berman [id number] ESRD (end stage renal disease) on dialysis 03/14/2020 documented as of this encounter (statuses as of 04/19/2020) Immunizations Name Administration Dates Next Due HEP [...] with No / Unsure 04/09/2020 12:24 PM LACTATION NURSE someone who was confirmed or suspected to have Coronavirus / COVID-19? documented as of this encounter Last Filed Vital Signs Not on filedocumented in this encounter Miscellaneous Notes Telephone Encounter - Donna Valencia RN - 04/19/2020 11:54 AM CST TRANSITIONAL CARE MANAGEMENT ASSESSMENT 04/19/2020 Jodi Steve [id number] Jodi Steve is a 75 year old /White male was admitted on 04/09/[address] He was discharged on 04/18/20 with discharge disposition of HR- Routine Discharge. Admitting Physician: Alfredo Khan Discharge Diagnosis: NSTEMI, Critical Severe Aortic Stenosis c/b syncope Linked Episodes Type: Episode: Status: Noted: Resolved: Last update: Updated by: TRANSITION OF CARE tcm Active 04/17/2020 04/19/2020 11:51 AM Donna Valencia RN Comments: TCM [id number] outreach documentation: Discharge Assessment Chart Assessed: 04/19/20 TCM Outreach Completed: 04/19/20 Do you have a few minutes to speak with me about how you are doing at home?: Yes(I spoke with daughter who states father is doing well post discharge.) Discharge Instructions Do you understand your at-home instructions?: Yes Medications Have you filled your prescriptions and do you have them in your home? : Yes(She states the pharmacy was closed last night but mother picked medications up this morning.) Do you know how to take your medications?: Yes(Levothyroxine new and lisinopril increased. scripts sent to pharmacy along with refills.) Supplies Did you receive applicable home medical supplies/equipment?: N/A Follow Up Appointment Has a follow up appointment been scheduled?: Yes(outside pcp but will follow-up with MD Saez appt. daughter asked if a referral was needed from insurance. i encouraged her to call the cardiology clinicand see if they require a referral.) Do you have any questions about your follow up appointments?: No Are you able to get to your appointment? Who will be taking you?: Yes(family) Home Health Assistance Has the home health nurse contacted you since you've been home?: N/A The hospital removed about 10 lbs during hospitalization. I asked daughter if they told him to restrict sodium and fluids. She states father and mother are usually very mindful of sodium and mother avoids when cooking. I encouraged her to check the labels of things he has at home and gave examples and rationale for monitoring sodium. He does dialysis and she states he is always mindful of fluid intake. Future Appointments: Future Appointments Provider Department Dept Phone 05/03/2020 3:00 PM Yuniel Saez MD [facility] [phone] 06/13/2020 3:30 PM Terrence Disla MD [facility] [phone] documented in this encounter Plan of Treatment Date Type Specialty Care Team Description 05/03/2020 Office Visit Cardiology Yuniel Saez M D [address] [facility] [address] [place], [place] [address] [phone] 06/13/2020 Office Visit Cardiology Terrence Disla MD [address] [place], [place] [address] Health Maintenance Due Date Last Done Comments [...] of this encounter Implants Implanted Type Area Technical Training Specialist Device Shelf Model / Identifier Expiration Date Ser ial / Lot Dialysis Dialysis Catheter Catheter documented as of this encounter Results Not on filedocumented in this encounter Insurance Payer Benefit Plan / Subscriber ID Effective Dates Phone Addre ss Type Group HUMANA - HUMANA [id number] 2019-[facility] Adv MANAGED MEDICARE [facility] t O MEDICARE Pharmacopeia [id number] 2020-[facility] Medicare Adv spring t HMO documented as of this encounter
--- OUTSIDE RECORDS SUMMARY | 2020-04-20 13:45 | XMS REPORT | Continuity of Care Document ---
:1945 Author Organization [employer] Care Team Providers Name Role Phone [employer] Information [email or web address] Unavailable Un available Problems Problem Status Onset Classification Date Comments Sourc e Date Reported LEFT RIGHT HEART Active 03/15/20 M H CATH 20 [facility] I35.0 IODINE Active 03/13/20 ALLERGY UNKNOWN 20 [place] Abnormal 03/30/19 04/01/2019 electrocardiogram 20 [place] [ECG] [EKG] ABNORMAL EKG Active 03/30/19 20 [facility] AVF Active 03/19/19 20 [facility] AVF CREATION, LEFT Active 01/30/20 M [facility] UPPER EXTREMITY [facility] Anxiety (finding) Active Problem 03/20/2020 H [facility] Diabetes mellitus Active Problem 03/20/2020 M H (disorder) [facility] End stage renal Active Problem 03/20/2020 disease (disorder) [facility] [place] Hypertensive Active Problem 03/20/2020 disorder, systemic [place] arterial (disorder) Medications Medication Details Route Status Patient Ordering Order Source Instructions Provider Date Aspirin 81 MG Notes: Do not No Longer Enteric Coated crush or Active 2020 [place] [facility] Tablet chew. (Same As: Ecotrin) Plavix Notes: (Same No Longer As: Plavix) Active 2020 [facility] Aspirin 81 MG 81 mg = [...] Refill(s) Nitroglycerin Notes: (Same Inactive as:Nitroquick 2019 [facility] , Nitrostat) "Do Not Crush" Sublingual tablet cyclobenzaprine 5 5 mg = 1 tab, Inactive mg oral tablet PO, BID, [address] [facility] ast Refill(s) gabapentin 300 MG 300 mg = 1 Active Oral Capsule cap, PO, 2019 [facility] Daily, 0 Refill(s) Morphine 4 mg, Route: No Longer IVP, Q6H, Active 2019 [facility] Dosing Weight 70.625, kg, PRN Pain Score 4-6, Start date: 04/06/19 17:51:00 CASE REVIEWER, Duration: 30 day, Stop date: 05/06/19 17:50:00 CASE REVIEWER protamine (ANES) Route: IV, Inactive Drug form: [address] [place] [address] INJ, ONCE, Stop date: 04/06/19 17:42:00 CASE REVIEWER Labetalol 10 mg, Route: Inactive IVP, Q5Min, 2019 [facility] Dosing Weight 70.625, kg, PRN Elevated BP, Start date: 04/06/19 17:37:00 CASE REVIEWER, Duration: 5 doses or times, Stop date: Limited # of times Ketorolac 30 mg, Route: Inactive IVP, ONCE, 2019 [facility] Dosing Weight 70.625, kg, Start date: 04/06/19 17:37:00 CASE REVIEWER, Stop date: 04/06/19 17:37:00 CASE REVIEWER Acetaminophen 1,000 mg, Inactive Route: PO, 2019 [facility] Drug form: TAB, ONCE, Dosing Weight 70.625, kg, PRN Pain Score 1-3, Start date: 04/06/19 17:37:00 CASE REVIEWER Fentanyl 25 microgram, Inactive Route: IVP, 2019 [facility] Q5Min, Dosing Weight 70.625, kg, PRN Pain Score 4-6, Priority: Routine, Start date: 04/06/19 17:37:00 CASE REVIEWER, Duration: 4 doses or times, Stop date: Limited # of times Morphine 4 mg, Route: Inactive IVP, Q5Min, 2019 [facility] Dosing Weight 70.625, kg, PRN Pain Score 7-10, Start date: 04/06/19 17:37:00 CASE REVIEWER, Duration: 3 doses or times, Stop date: Limited # of times Naloxone 0.4 mg, Inactive Route: IVP, 2019 [facility] Q2MIN, Dosing Weight 70.625, kg, PRN Narcotic Reversal, Start date: 04/06/19 17:37:00 CASE REVIEWER, Duration: 8 doses or times, Stop date: Limited # of times Meperidine 12.5 mg, Inactive Route: IVP, 2019 [facility] Q30Min, Dosing Weight 70.625, kg, PRN Other -See Comment, For shivering, Start date: 04/06/19 17:37:00 CASE REVIEWER, Duration: 2 doses or times, Stop date: Limited # of times Ondansetron 4 mg, Route: Inactive IVP, ONCE, 2019 [facility] Dosing Weight 70.625, kg, PRN Nausea & Vomiting, Start date: 04/06/19 17:37:00 CASE REVIEWER heparin (ANES) Route: IV, Inactive Drug form: 2019 [facility] INJ, ONCE, Stop date: 04/06/19 17:35:00 CASE REVIEWER ondansetron Route: IV, Inactive (ANES) Drug form: 2019 [facility] INJ, ONCE, Stop date: 04/06/19 17:30:00 CASE REVIEWER fentaNYL (ANES) Route: IV, Inactive Drug form: 2019 [facility] INJ, ONCE, Stop date: 04/06/19 17:29:00 CASE REVIEWER midazolam (ANES) Route: IV, Inactive Drug form: 2019 [facility] SOLN, ONCE, Stop date: 04/06/19 17:25:00 CASE REVIEWER ceFAZolin (ANES) Route: IV, Inactive Drug form: 2019 [facility] INJ, ONCE, Stop date: 04/06/19 17:25:00 CASE REVIEWER Sodium Chloride Route: IV, Inactive 0.9% IV (ANES) Total Volume: 2019 [facility] 1000 mL 1,000, Start date: 04/06/19 16:29:00 CASE REVIEWER, Stop date: 04/06/19 17:29:00 CASE REVIEWER Aspirin 0 Refill(s) Active 2019 [facility] lisinopril 2.5 mg 2.5 mg = 1 Active oral tablet tab, PO, 2019 Daily, 0 Refill(s) Furosemide 40 MG 40 mg = 1 Active Oral Tablet tab, PO, 2019 Daily, 0 Refill(s) atorvastatin PO, Daily, 0 Inactive Refill(s) 2019 atorvastatin 20 20 mg = 1 Active mg oral tablet tab, PO, [facility] t Daily, 0 Refill(s) carvedilol 6.25 6.25 mg = 1 Active mg oral tablet tab, PO, BID, 2019 [facility] 0 Refill(s) normal saline 500 mL, Rate: No Longer 0.9% IV 500 mL 40 ml/hr, Active [address] [facility] [address] Infuse over: 12.5 hr, Route: IV, Dosing Weight 70.625 kg, Total Volume: 500, Start date: 04/06/19 10:30:00 CASE REVIEWER, Duration: 30 day, Stop date: 05/06/19 10:29:00 CASE REVIEWER, 1.81, m2 Aspirin 324 mg, Inactive Route: CHEW, 2019 [facility] Drug form: CHEWTAB, ONCE, Dosing Weight 70.625, kg, Priority: STAT, Start date: 03/30/19 12:59:00 CASE REVIEWER, Stop date: 03/30/19 12:59:00 CASE REVIEWER Vancomycin 1 gm, Route: No Longer IVPB, Drug Active 2019 [facility] form: INJ, PRE OP, Dosing Weight 70.625, kg, Start date: 03/30/19 12:00:00 CASE REVIEWER, Duration: 1 day, Stop date: 03/31/19 11:59:00 CASE REVIEWER, ABX Indication: Surgical Prophylaxis Ancef 2 gm, Route: No Longer IVPB, PRE OP, Active 2019 [facility] Dosing Weight 70.625, kg, Start date: 03/30/19 12:00:00 CASE REVIEWER, Duration: 1 day, Stop date: 03/31/19 11:59:00 CASE REVIEWER, ABX Indication: Surgical Prophylaxis Allergies, Adverse Reactions, Alerts Substance Category Reaction Severity Reaction Status Date Comments S ource type Reported No Known Assertion Drug Medication allergy [facility] Allergies Immunizations No Data Provided for This Section Results Order Name Results Value Reference Date Interpretation Comments [facility] r[facility] Range CHEM PANEL Glucose Lvl 105 70 - 99 03/16 [facility] CHEM PANEL BUN 31 7 - 22 03/16 [facility] CHEM PANEL Creatinine 4.51 0.50 - 03/16 MH Lvl 1.40 [facility] CHEM PANEL Sodium Lvl 137 135 - 145 03/16 [facility] CHEM PANEL Potassium 4.1 3.5 - 5.1 03/16 MH Lvl /2019 [facility] CHEM PANEL Chloride Lvl 102 95 - 109 03/16 [facility] CHEM PANEL CO2 28 24 - 32 03/16 [facility] CHEM PANEL Calcium Lvl 9.3 8.5 - 10.5 03/16 [facility] CHEM PANEL AGAP 11.1 10.0 - 03/16 MH 20.0 [facility] CHEM PANEL eGFR 12 03/16 Result Comment: The [facility] eGFR is calculated using the CKD-EPI [...] HEMATOLOGY WBC 7.7 3.7 - 10.4 03/16 [facility] HEMATOLOGY RBC 3.17 4.70 - 03/16 MH 6.10 [facility] HEMATOLOGY Hgb 10.5 14.0 - 03/16 MH 18.0 [facility] HEMATOLOGY Hct 31.1 42.0 - 03/16 MH 54.0 [facility] HEMATOLOGY MCV 98.2 80.0 - 03/16 MH 94.0 [facility] HEMATOLOGY MCH 33.2 27.0 - 03/16 MH 31.0 [facility] HEMATOLOGY MCHC 33.8 32.0 - 03/16 MH 36.0 [facility] HEMATOLOGY RDW 14.1 11.5 - 03/16 MH 14.5 [facility] HEMATOLOGY Platelet 157 133 - 450 03/16 [facility] HEMATOLOGY MPV 9.6 7.4 - 10.4 03/16 MH /2019 [facility] HEMATOLOGY Segs 78.6 45.0 - 03/16 MH 75.0 /2019 [facility] HEMATOLOGY Lymphocytes 13.0 20.0 - 03/16 MH 40.0 /2019 [facility] HEMATOLOGY Monocytes 8.0 2.0 - 12.0 03/16 MH [facility] HEMATOLOGY Eosinophils 0.1 0.0 - 4.0 03/16 [facility] HEMATOLOGY Basophils 0.3 0.0 - 1.0 03/16 [facility] HEMATOLOGY Neutrophils 6.0 1.5 - 8.1 03/16 MH # /2019 [facility] HEMATOLOGY Lymphocytes 1.0 1.0 - 5.5 03/16 MH # /2019 [facility] HEMATOLOGY Monocytes # 0.6 0.0 - 0.8 03/16 [facility] IMMUNOLOGY Coronavirus Not Detected Not 03/16 (COVID-19) (03/16/20 9:19 AM) Detected /2019 [place] [facility] BLOOD BANK ABO/Rh O POS 04/06 RESULTS /2019 [facility] BLOOD BANK Antibody Negative 04/06 RESULTS Scrn (04/06/19 9:47 AM) /2019 [facility] ast CHEM PANEL Glucose Lvl 82 70 - 99 04/06 [facility] CHEM PANEL BUN 35 7 - 22 04/06 [facility] CHEM PANEL Creatinine 5.65 0.50 - 04/06 Lvl 1.40 [facility] CHEM PANEL Sodium Lvl 138 135 - 145 04/06 [facility] CHEM PANEL Potassium 4.5 3.5 - 5.1 04/06 Lvl /2019 [facility] CHEM PANEL Chloride Lvl 105 95 - 109 04/06 [facility] CHEM PANEL CO2 27 24 - 32 04/06 [facility] CHEM PANEL Calcium Lvl 9.3 8.5 - 10.5 04/06 [facility] CHEM PANEL AGAP 10.5 10.0 - 04/06 20.0 [facility] CHEM PANEL eGFR 9 04/06 Result Comment: The [facility] eGFR is calculated using the CKD-EPI [...] 85 12 - 191 03/30 ENZYMES /2019 [facility] CARDIAC Troponin-I <0.02 0.00 - 03/30 [...] A/G Ratio 0.8 0.7 - 1.6 03/30 [facility] CHEM PANEL eGFR 9 03/30 Result Comment: The [facility] eGFR is calculated using the CKD-EPI [...] HEMATOLOGY WBC 6.6 3.7 - 10.4 03/30 [facility] HEMATOLOGY RBC 3.81 4.70 - 03/30 MH 6.10 [facility] HEMATOLOGY Hgb 12.1 14.0 - 03/30 MH 18.0 [facility] HEMATOLOGY Hct 35.7 42.0 - 03/30 MH 54.0 [facility] HEMATOLOGY MCV 93.6 80.0 - 03/30 MH 94.0 [facility] HEMATOLOGY MCH 31.7 27.0 - 03/30 MH 31.0 [facility] HEMATOLOGY MCHC 33.8 32.0 - 03/30 MH 36.0 [facility] HEMATOLOGY RDW 14.4 11.5 - 03/30 MH 14.5 [facility] HEMATOLOGY Platelet 148 133 - 450 03/30 [facility] HEMATOLOGY MPV 9.5 7.4 - 10.4 03/30 [facility] HEMATOLOGY PT 14.0 12.0 - 03/30 MH 14.7 [facility] HEMATOLOGY INR 1.08 0.85 - 03/30 MH 1.17 [facility] HEMATOLOGY PTT 35.6 22.9 - 03/30 MH 35.8 [facility] HEMATOLOGY Segs 56.7 45.0 - 03/30 MH 75.0 [facility] HEMATOLOGY Lymphocytes 24.2 20.0 - 03/30 40.0 [facility] HEMATOLOGY Monocytes 12.0 2.0 - 12.0 03/30 [facility] HEMATOLOGY Eosinophils 6.2 0.0 - 4.0 03/30 [facility] HEMATOLOGY Basophils 0.9 0.0 - 1.0 03/30 [facility] HEMATOLOGY Neutrophils 3.7 1.5 - 8.1 03/30 [facility] HEMATOLOGY Lymphocytes 1.6 1.0 - 5.5 03/30 [facility] HEMATOLOGY Monocytes # 0.8 0.0 - 0.8 03/30 [facility] HEMATOLOGY Eosinophils 0.4 0.0 - 0.5 03/30 [facility] HEMATOLOGY Basophils # 0.1 0.0 - 0.2 03/30 [facility] Pathology Reports No Data Provided for [...] Romeo Harris MD On 03/30/2019 13:22:36; [id number] Consultation Notes No Data Provided for This Section Discharge Summaries No Data Provided for This Section History and Physicals No Data Provided for This Section Vital Signs Vital Sign Value Date Comments Source Respitory Rate 27 03/16/2020 [facility] Systolic (mm Hg) 143 03/16/2020 [facility] t Diastolic (mm Hg) 64 03/16/[address] [facility] [address] Respitory Rate 16 03/16/2020 [facility] Systolic (mm Hg) 123 03/16/2020 [place] Diastolic (mm Hg) 58 03/16/[address] Respitory Rate 21 03/16/2020 [facility] Systolic (mm Hg) 157 03/16/2020 [place] Diastolic (mm Hg) 68 03/16/[address] Height 162.56 cm 03/16/2020 [facility] Weight 71.818 03/16/2020 [facility] BMI Calculated 27.18 03/16/2020 [facility] Respitory [...] 162.56 cm 03/30/2019 [facility] Weight 70.625 03/30/2019 [facility] BMI Calculated 26.73 03/30/2019 [facility] Encounters Location Location Encounter Encounter Reason Attending ADM DC Stat us Source Details Type Number For Provider Date Date [facility] [id number] Ethan Iheme 03/30 03/30 [place] /2019 [facility] Day Surgery [id number] [facility] Bedded [id number] Nadish 03/16 03/16 [facility] [place] /2019 [facility] Procedures Procedure Code Date Perfomer Comments Source CABG x 1 - Coronary [id number] [place] artery bypass graft x 4 1 Catheterization of [id number] [facility] both left and right heart [...]
--- OUTSIDE RECORDS SUMMARY | 2020-04-20 13:46 | XMS REPORT | Continuity of Care Document ---
:1945 Author Organization [facility] t Address [address] [place] [address] Care Team Providers Name Role Phone Tono [...] IODINE 05-14 14:52:00 l ALLERGY I35.0 00:00: [place] UNKNOWN IODINE 00 ALLERGY UNKNOWN Active 03/13/2020 [facility] ABNORMAL Diagnosis Active 2019-03-30 M emoria EKG - 13:30:00 l ABNORMAL 00:00: José Luis n EKG 00 Active 03/30/2019 [facility] AVF Diagnosis Active 2019-04-06 Mem oria 1-03 08:47:00 l AVF 00:00: Arvind 00 Active 03/19/2019 [facility] AVF Diagnosis Active 2018-032019-05-03 Mem oria CREATION, 03-31 15:41:00 l LEFT UPPER AVF 00:00: José Luis n EXTREMITY CREATION, 00 LEFT UPPER EXTREMITY Active 01/29/2019 [facility] Anxiety Problem Active 2020-03-20 Bear niki (finding) 09:23:28 l Anxiety [place] (finding) Active Problem 03/20/2020 [facility] Diabetes Problem Active 2020-03-20 Mem oria mellitus 09:23:28 l (disorder) Diabetes He rmann mellitus (disorder) Active Problem 03/20/2020 [facility] End stage Problem Active 2020-03-20 Me moria renal 09:23:28 l disease End [place] (disorder) stage renal disease (disorder) Active Problem 03/20/2020 [facility] Hypertensi Problem Active 2020-03-20 M emoria ve 09:23:28 l disorder, [place] systemic Hypertensi arterial ve (disorder) disorder, systemic arterial (disorder) Active Problem 03/20/2020 [facility] Abnormal Problem 2019-04-01 2019-04-01 Memoria electrocar -14 23:07:11 23:07:11 l diogram Abnormal 18:00: Farnaz nn [ECG] electrocar 00 [EKG] diogram [ECG] [EKG] 03/30/2019 04/01/2019 [facility] Allergies, Adverse Reactions, Alerts Allergy Allergy Status [...] tab, PO, l Coated 20:32: Daily, # [place] Tablet 00 30 tab, 6 Refill(s) clopidogrel 2019-03 Yes 75 mg = 1 M emoria 75 MG Oral 2-31 tab, PO, l Tablet 20:32: Daily, # [place] [Plavix] 00 30 tab, 6 Refill(s) Aspirin 81 2019-03 No 81 mg = 1 Me moria MG Enteric 2-31 tab, PO, l Coated 19:25: Daily, # Arvind Tablet 00 30 tab, 6 Refill(s) clopidogrel 2019-03 No 75 mg = 1 M emoria 75 MG Oral 2-31 tab, PO, l Tablet 19:25: Daily, # [place] [Plavix] 00 30 tab, 6 Refill(s) Nitroglycer [...] Memoria 04-06 Route: l 23:51: IVP, Q6H, [place] 00 Dosing Weight 70.625, kg, PRN Pain Score 4-6, Start date: 04/06/19 17:51:00 ECHOCARDIOLOGIST, Duration: 30 day, Stop date: 05/06/19 17:50:00 ECHOCARDIOLOGIST protamine No Route: IV, Me moria (ANES) 04-06 Drug form: l 23:42: INJ, ONCE, [place] 00 Stop date: 04/06/19 17:42:00 ECHOCARDIOLOGIST Labetalol 2020-0 No 10 mg, Memori a 04-06 Route: l 23:37: IVP, Arvind 00 Q5Min, Dosing Weight 70.625, kg, PRN Elevated BP, Start date: 04/06/19 17:37:00 ECHOCARDIOLOGIST, Duration: 5 doses or times, Stop date: Limited # of times Ketorolac 2020-0 No 30 mg, Memori a 04-06 Route: l 23:37: IVP, ONCE, [place] 00 Dosing Weight 70.625, kg, Start date: 04/06/19 17:37:00 ECHOCARDIOLOGIST, Stop date: 04/06/19 17:37:00 ECHOCARDIOLOGIST Acetaminoph 2020-0 No 1,000 mg, M emoria en 04-06 Route: PO, l 23:37: Drug form: Arvind 00 TAB, ONCE, Dosing Weight 70.625, kg, PRN Pain Score 1-3, Start date: 04/06/19 17:37:00 ECHOCARDIOLOGIST Fentanyl 2020-0 No 25 Memoria - microgram, l 23:37: Route: Arvind 00 IVP, Q5Min, Dosing Weight 70.625, kg, PRN Pain Score 4-6, Priority: Routine, Start date: 04/06/19 17:37:00 ECHOCARDIOLOGIST, Duration: 4 doses or times, Stop date: Limited # of times Morphine 2020-0 No 4 mg, Memoria 04-06 Route: l 23:37: IVP, [place] 00 Q5Min, Dosing Weight 70.625, kg, PRN Pain Score 7-10, Start date: 04/06/19 17:37:00 ECHOCARDIOLOGIST, Duration: 3 doses or times, Stop date: Limited # of times Naloxone 2020-0 No 0.4 mg, Memori a 04-06 Route: l 23:37: IVP, Arvind 00 Q2MIN, Dosing Weight 70.625, kg, PRN Narcotic Reversal, Start date: 04/06/19 17:37:00 ECHOCARDIOLOGIST, Duration: 8 doses or times, Stop date: Limited # of times Meperidine 2020-0 No 12.5 mg, Mem oria 04-06 Route: l 23:37: IVP, [place] 00 Q30Min, Dosing Weight 70.625, kg, PRN Other -See Comment, For shivering, Start date: 04/06/19 17:37:00 ECHOCARDIOLOGIST, Duration: 2 doses or times, Stop date: Limited # of times Ondansetron 2020-0 No 4 mg, Memor ia 04-06 Route: l 23:37: IVP, ONCE, Dosing Weight 70.625, kg, PRN Nausea & Vomiting, Start date: 04/06/19 17:37:00 ECHOCARDIOLOGIST heparin 2020-0 No Route: IV, Bear niki (ANES) 04-06 Drug form: l 23:35: INJ, ONCE, Stop date: 04/06/19 17:35:00 ECHOCARDIOLOGIST ondansetron 2019-0 No Route: IV, Memoria (ANES) 04-06 Drug form: l 23:30: INJ, ONCE, Stop date: 04/06/19 17:30:00 ECHOCARDIOLOGIST fentaNYL 2020-0 No Route: IV, Mem oria (ANES) 04-06 Drug form: l 23:29: INJ, ONCE, Stop date: 04/06/19 17:29:00 ECHOCARDIOLOGIST midazolam 2020-0 No Route: IV, Me moria (ANES) 04-06 Drug form: l 23:25: SOLN, 00 ONCE, Stop date: 04/06/19 17:25:00 ECHOCARDIOLOGIST ceFAZolin 2019-0 No Route: IV, Me moria (ANES) 04-06 Drug form: l 23:25: INJ, ONCE, Stop date: 04/06/19 17:25:00 ECHOCARDIOLOGIST Sodium 2020-0 No Route: IV, Memor ia Chloride 04-06 Total l 0.9% IV 22:29: Volume: Arvind (ANES) 1000 00 1,000, mL Start date: 04/06/19 16:29:00 ECHOCARDIOLOGIST, Stop date: 04/06/19 17:29:00 ECHOCARDIOLOGIST Aspirin 2020-0 Yes 0 Memoria 04-06 Refill(s) l 16:40: lisinopril 2019-0 Yes 2.5 mg = 1 M emoria 2.5 mg oral 04-06 tab, PO, l tablet 16:39: Daily, 0 [place] 00 Refill(s) Furosemide 2020-0 Yes 40 mg = 1 Me moria 40 MG Oral -21 tab, PO, l Tablet 16:38: Daily, 0 Arvind 00 Refill(s) atorvastati 2020-0 No PO, Daily, Memoria n -21 0 l 16:38: Refill(s) Arvind 00 atorvastati 2019-0 Yes 20 mg = [...] Total Volume: 500, Start date: 04/06/19 10:30:00 ECHOCARDIOLOGIST, Duration: 30 day, Stop date: 05/06/19 10:29:00 ECHOCARDIOLOGIST, 1.81, m2 Aspirin 2019-0 No 324 mg, Memoria 03-30 Route: l 18:59: CHEW, Drug form: CHEWTAB, ONCE, Dosing Weight 70.625, kg, Priority: STAT, Start date: 03/30/19 12:59:00 ECHOCARDIOLOGIST, Stop date: 03/30/19 12:59:00 ECHOCARDIOLOGIST Vancomycin 2019-0 No 1 gm, Memori a 03-30 Route: l 18:00: IVPB, Drug form: INJ, PRE OP, Dosing Weight 70.625, kg, Start date: 03/30/19 12:00:00 ECHOCARDIOLOGIST, Duration: 1 day, Stop date: 03/31/19 11:59:00 ECHOCARDIOLOGIST, ABX Indication : Surgical Prophylaxi s Ancef 2020-0 No 2 gm, Memoria -14 Route: l 18:00: IVPB, PRE Arvind 00 OP, Dosing Weight 70.625, kg, Start date: 03/30/19 12:00:00 ECHOCARDIOLOGIST, Duration: 1 day, Stop date: 03/31/19 11:59:00 ECHOCARDIOLOGIST, ABX Indication : Surgical Prophylaxi s Vital Signs Vital Name Observation Time Observation Value Comments Source Respitory Rate 2020-03-16 23:00:00 Memori al [place] Systolic (mm Hg) 2020-03-16 23:00:00 Bear rial [place] Diastolic (mm Hg) 2020-03-16 23:00:00 Mem orial Arvind Respitory Rate 2020-03-16 22:45:00 Memori al Arv[place] Systolic (mm Hg) 2020-03-16 22:45:00 Bear rial [place] Diastolic (mm Hg) 2020-03-16 22:45:00 Mem orial Arvind Respitory Rate 2020-03-16 22:15:00 Memori al [place] Systolic (mm Hg) 2020-03-16 22:15:00 Bear rial Arvind Diastolic (mm Hg) 2020-03-16 22:15:00 Mem orial [place] Height 2020-03-16 15:45:00 162.56 cm [facility] Arvind Weight 2020-03-16 15:45:00 [facility] [place] BMI Calculated 2020-03-16 15:45:00 Memori al Arvind Respitory Rate 2019-04-07 01:00:00 Memori al [place] Systolic (mm Hg) 2019-04-07 01:00:00 Bear rial Arvind Diastolic (mm Hg) 2019-04-07 01:00:00 Mem orial Arvind Respitory Rate 2019-04-07 00:45:00 Memori al Arvind Systolic (mm Hg) 2019-04-07 00:45:00 Bear rial [place] Diastolic (mm Hg) 2019-04-07 00:45:00 Mem orial [place] Respitory Rate 2019-04-07 00:30:00 Memori al [place] Systolic (mm Hg) 2019-04-07 00:30:00 Bear rial Arvind Diastolic (mm Hg) 2019-04-07 00:30:00 Mem orial Arvind Heart Rate 2019-04-06 16:00:00 [facility] Arvind Systolic (mm Hg) 2019-03-30 20:41:00 Bear rial Arvind Diastolic (mm Hg) 2019-03-30 20:41:00 Mem orial [place] Heart Rate 2019-03-30 20:41:00 [facility] Arvind Systolic (mm Hg) 2019-03-30 20:21:00 Bear garza Arvind Diastolic (mm Hg) 2019-03-30 20:21:00 Mem orial Arvind Heart Rate 2019-03-30 20:21:00 [facility] Arvind Respitory Rate 2019-03-30 20:21:00 Williams doty Arivnd Height 2019-03-30 17:46:00 162.56 cm Coreen [place] Weight 2019-03-30 17:46:00 [facility] [place] BMI Calculated 2019-03-30 17:46:00 Memzena al [place] Procedures Procedure Date / Time Performing Clinician Source Performed CABG x 1 - Coronary artery [facility]17 [facility] [place] [facility] graft x 1 Catheterization of both [facility] Arvind left and right heart Encounters Start End Encounter Admission Attending Care Care Encounter Source Date/Time Date/Time Type Type Clinicians Facility Department ID 2020-03-29 Outpatient [facility]SE CAR [id number] MH 10:59:41 [facility] 2020-04-20 2020-04-20 Emergency [facility] [id number] 02:44:00 05:48:00 Marky Bonlila [id number] [place] 4.2.7.2.686 [place] [id number] 2020-04-19 2020-04-19 Transition Kinjal Valencia [id number] 00:00:00 00:00:00 of Care Donna Valencia [id number] [place] 4.2.7.2.686 [id number] 2020-04-09 2020-04-18 [facility] Alberto Ruelas [id number] 12:29:00 19:45:00 Encounter Alfredo Khan [id number] [facility] 4.2.7.2.686 Alfredo Khan [id number] [facility] 09 Alfredo Khan 2020-04-14 2020-04-14 Telephone Carolyn Disla [id number] 00:00:00 00:00:[id number] [facility] [id number] [id number] 2020-03-16 2020-03-16 Outpatient [place], MHSE MHSE [id number] 09:06:00 17:25:00 Nadish 04 2020-03-16 2020-03-16 Outpatient [place], MHSE MHSE [id number] 09:06:00 17:25:00 Nadish 04 2020-03-16 2020-03-16 Outpatient MHSE CAR [id number] MH 09:06[facility] 2020-[facility]-14 2020-03-14 Office [facility] [id number] 09:32:42 10:30:27 Visit kraig, ANA PAULA 350.1.13.10 [facility] [id number] CENTER AT [id number] GLENN Romano [facility] 2019-04-06 2019-04-06 Outpatient Varun, MHSE MHSE [id number] 08:47:00 19:20:00 Lukas 01 [place] 2019-03-30 2019-03-30 Outpatient Iheme, Ethan MHSE MHSE [id number] 12:37:48 14:48:00 U 02 Results Test Description [...] code = MCH) 33.2 pg 27.0-31.0 [facility] BknhgfeWYCIEHTMUA4237-54-52 15:57:0033.8[facility] 2020-03-16 15:57:0014.1[facility] HhojkdiIGMWBBHSQK9373-68-91 15:57:68958Beqeizkm WgflqaqQCBFKYOZBQ2643-94-92 15:57:009.6[facility] RyfbfqxSSRBWBMYVC6647-50-06 15:57:0078.6[facility] RriltboLGEDQABETW8700-89-32 15:57:0013.0[facility] [place] DCNUTPVAGO9256-48-53 15:57:008.0[facility] AqsbgvjHYSZQCCPQZ5574-94-05 15:57:000.1 Memorial IlikdioRVTJXDKQLL7515-44-53 15:57:000.3[facility]ann[facility]MATOLOGY 2020-03-16 15:57:006.0[facility] YlcvzrgKXZKKINIJJ4006-99-97 15:57:001.0[facility] IwgsmuuDJCQNGXXPJ0344-67-85 15:57:000.6[facility] WbccwmyAUSTJTWBRK2681-56-28 15:19:00Not Detected (03/16/20 9:19 AM)[facility]annBLOOD BANK RESULTS 2019-04-06 15:47:00Negative (04/06/19 9:47 AM)[facility]annCHEM PANEL 2019-04-06 15:47:0082[facility] HermannCHEM RKBCK0290-37-63 15:47:0035[facility]annCHEM GPRNK7791-45-48 15:47:005.65[facility]annCHEM LVDQL3954-91-29 15:47:24997Akmhoovy HermannCHEM IBSWV0599-45-57 15:47:004.5[facility]annCHEM QEYRF7211-76-70 15:47:50363Nmpdpzue HermannCHEM JOZGT8923-06-09 15:47:0027 [facility]annCHEM AJNNN4860-70-43 15:47:009.3[facility]annCHEM PANEL 2019-04-06 15:47:0010.5[facility] HermannCHEM TEIAB6017-99-04 15:47:009[facility] HermannCARDIAC IOCNCYF5542-47-29 18:55:0085[facility]annCARDIAC ENZYMES 2019-03-30 18:55:00<0.02[facility]annCHEM UHRTL5984-09-28 18:55:0095 [facility]annCHEM ESHSJ4686-65-11 18:55:0039[facility]annCHEM PANEL 2019-03-30 18:55:005.55[facility]annCHEM BOSGK9588-65-70 18:55:75079Tezvbbfj HermannCHEM IOEIB3369-17-76 18:55:004.3[facility] HermannCHEM ZHNCZ7884-74-20 18:55:73291Pmjcfpti HermannCHEM HFGDA3036-85-66 18:55:0027[facility] HermannCHEM UHHHT9827-85-55 18:55:009.4[facility]annCHEM TXUYX6301-77-85 18:55:008.1 [facility]annCHE[facility] BXWOP1864-07-39 18:55:003.7[facility] HermannCHEM PANEL 2019-03-30 18:55:0029[facility] HermannCHEM NJTYL2930-88-69 18:55:0012[facility]annCHEM UHYEA7720-99-80 18:55:11293Lculpgfx HermannCHEM IKMUS7411-13-16 18:55:000.4[facility] HermannCHEM KDTLK3350-32-18 18:55:0010.3[facility] HermannCHEM HFUOA4509-78-07 18:55:00 Test Item Value Reference Range Interpretation Comments B/C Ratio (test code = B/C Ratio) 7 1 6-25 [facility]annCHE[facility] YJKVS7570-07-32 18:55:004.4[facility] HermannCHEM PANEL 2019-03-30 18:55:00 Test Item Value Reference Range Interpretation Comments A/G Ratio (test code = A/G Ratio) 0.8 1 0.7-1.6 [facility] CCZLA6997-46-82 18:55:009[facility]annHEMATOLOGY 2019-03-30 18:55:006.6[facility] YighwtjZZTSDNRNWO9809-40-86 18:55:003.81[facility] SykwcgnKMEUPWEOAV2192-06-06 18:55:0012.1[facility] CqlhrczTHQNRSRZVK8710-93-33 18:55:0035.7[facility] NfhxylsHJGBVQCHXQ4744-84-32 18:55:0093.6[facility]vind BQJBCBFHVW7602-03-40 18:55:00 Test Item Value Reference Range Interpretation Comments MCH (test code = MCH) 31.7 pg 27.0-31.0 [facility] CampusYcjubxuZSOVJWLLZU7207-82-37 18:55:0033.8[facility]annHEMATOLOGY 2019-03-30 18:55:0014.4[facility] IcdbmzeMPAUIDRVJR4912-70-09 18:55:73497Zelotttz BuefzvvBUYKDZVXQU1217-66-56 18:55:009.5[facility] ChozmlwAPQDGTKSBH8187-26-64 18:55:00 Test Item Value Reference Range Interpretation Comments PT (test code = PT) 14.0 s 12.0-14.7 [facility] CampusGzgcgmgCVDCGXEDTD2982-00-68 18:55:00 Test Item Value Reference Range Interpretation Comments INR (test code = INR) 1.08 1 0.85-1.17 [facility] BponimxIFSZDVWGAI2092-96-50 18:55:00 Test Item Value Reference Range Interpretation Comments PTT (test code = PTT) 35.6 s 22.9-35.8 [facility] CampusFkgkqbuETOWDAXKFK8723-88-58 18:55:0056.7[facility]annHEMATOLOGY 2019-03-30 18:55:0024.2[facility] YkcfwwzWOLCCYCECX7839-91-12 18:55:0012.0[facility] UzslxvcHDHLUJVMTE1379-55-03 18:55:006.2[facility] WhaarblSDMDDUZGPG2728-34-24 18:55:000.9[facility] MduzoqzRNPTACAQUI5616-76-10 18:55:003.7[facility] [place] GILWMNEOET4686-93-35 18:55:001.6[facility] AkgladwTHZGOYDVMC6141-87-38 18:55:000.8 [facility] BohisbmAVJIAZCEFN5323-78-71 18:55:000.4[facility] HermannHEMATOLOGY 2019-03-30 18:55:000.1[facility] [place]
[2020-04-20] MEDS ORDERED: GLUCAGON 1 MG/VIAL IM PRN (14:58)
[2020-04-20] MEDS ORDERED: D50W 25 GM/50 ML SYRINGE IV PRN (14:58)
--- NOTE | 2020-04-20 15:10 | P.HP ---
Certification for Inpatient Patient admitted to: Inpatient With expected LOS: >2 Midnights Practitioner: I am a practitioner with admitting privileges, knowledge of patient current condition, hospital course, and medical plan of care. Services: Services provided to patient in accordance with Admission requirements found in Title 42 Section 412.3 of the Code of Federal Regulations Patient History Date of Service: 04/20/20 Primary Care Provider: Deidre Garcia Reason for admission: Severe aortic stenosis History of Present Illness: Patient of Deidre Garcia. With a pmh of CAD w/ CABG in . dm2, ESRD. The patient was having syncopal episodes in Feb. Went to [facility] where he had a cath procedure. The patient started having syncopal episodes last month went to the [place] ER Was sent to [place] Had a cath. Coded the evening after the cath. Had hematemesis. Negative EGD He then had a ballon angioplasty on Friday. Discharged on Friday. He has several syncopal episodes this week since his discharge. The patient had 2 last night. Refused the first EMS. Went with the second EMS was discharged at 7 am this morning and came to the office. He was very week in the office with a bp of 85/71. Discussed with his regular on site manager Dr. Graff. We both agreed he needed to be inpatient. Was sent to the hospital for direct admission. Have spoken to Dr. Lam in the [employer]. We both went to exam the patient. Dr. Mcmahon feels this is a severe aortic stenosis based on history and physical exam. Allergies No Known Allergies Allergy (Verified 11/06/18 08:38) Home Medications: Albuterol Sulfate [Proair Respiclick] 1 puff IH Q6HR PRN 10/31/18 Guaifenesin/Codeine Phosphate [Guaifenesin-Codeine Syrup] 5 ml PO Q6H PRN 10/31/18 Montelukast Sodium [Singulair] 5 mg PO DAILY 10/31/18 carvediloL [Coreg*] 1 tab PO BID 10/31/18 Ferrous Sulfate [Iron] 325 mg PO TID 30 Days #90 tablet 11/01/18 Furosemide [Lasix] 40 mg PO DAILY 30 Days #90 tab 11/01/18 calcitrioL [Calcitriol] 0.5 mcg PO DAILY 30 Days #30 capsule 11/01/18 - Past Medical/Surgical History Diabetic: Yes -: hypertension -: renal dse -: NIDDM -: CABG - Social History Alcohol use: No CD- Drugs: No Caffeine use: Yes Review of Systems 10-point ROS is otherwise unremarkable Cardiovascular: Other (syncope, recurrent) Physical Examination - Vital Signs Temperature: 97.2 F Blood Pressure: 86/51 Pulse: 72 Respirations: 17 Pulse Ox (%): 100 - Physical Exam General: Alert, In no apparent distress HEENT: Atraumatic, PERRLA, Mucous membr. moist/pink, EOMI, Sclerae nonicteric Neck: Supple, 2+ carotid pulse no bruit, No LAD, Without JVD or thyroid abnormality Respiratory: Clear to auscultation bilaterally, Normal air movement Cardiovascular: Regular rate/rhythm, Normal S1 S2, Systolic murmur (aotric area. ) Gastrointestinal: Normal bowel sounds, No tenderness Musculoskeletal: No tenderness Integumentary: No rashes Neurological: Normal gait, Normal speech, Normal strength at 5/5 x4 extr, Normal tone, Normal affect Lymphatics: No axilla or inguinal lymphadenopathy Assessment and Plan - Problems (Diagnosis) (1) Aortic stenosis Current Visit: Yes Status: Acute Plan: have discussed with Dr. Pierre. Plans for a stat echo. See if we need to tra nsfer him for a stat replacement. Qualifiers: Cardiac valve disease etiology: nonrheumatic Qualified Code(s): I35.0 - Nonrheumatic aortic (valve) stenosis (2) ESRD (end stage renal disease) on dialysis Current Visit: Yes Status: Acute Plan: Consult Dr. Jackson. Dr. Mcmahon would like to not have dialysis tomorrow as it may drop his blood pressure. (3) DM2 (diabetes mellitus, type 2) Current Visit: Yes Status: Acute Discharge Plan: Home Plan to discharge in: Greater than 2 days - Advance Directives Does patient have a Living Will: No Does patient have a Durable POA for Healthcare: No - Code Status/Comfort Care Code Status Assessed: No Code Status: Full Code Physician Review: Patient Assessed, Agree with Above Assessment and Plan Critical Care: No Time Spent Managing Pts Care (In Minutes): 90
[2020-04-20 15:58] LABS: Protime INR 1.64
[2020-04-20] MEDS: ONDANSETRON 4 MG/2 ML VIAL IV PRN (17:20)
[2020-04-20] MEDS: INSULIN -REGULAR HUMAN 50 UNIT/0.5 ML ML SQ SCH ×2 (17:25→20:56)
[2020-04-20] MEDS ORDERED: ONDANSETRON 4 MG/2 ML VIAL ONE (17:29)
[2020-04-20 18:24] VITALS: BMI 25.4
--- NOTE | 2020-04-20 18:42 | ER ---
Nurse's Notes [facility] Name: Jodi Steve Age: 75 yrs Sex: Male : 1945 Arrival Date: 04/20/2020 Time: 13:43 Bed Direct Admit Private MD: Franklin Corado Diagnosis: Heart failure;Hypotension;Pyonephrosis Presentation: 04/20 13:45 Chief complaint: Patient states: Direct admit Dr. Corado. BP was low in his office today sv 85 systolic. Had a syncopal event this am. Near syncope yesterday. Coronavirus screen: Client denies travel out of the [place] in the last 14 days. At this time, the client does not indicate any symptoms associated with coronavirus-19. Ebola Screen: Patient denies travel to an Ebola-affected area in the 21 days before illness onset. Initial Sepsis Screen: Does the patient meet any 2 criteria? Systolic BP < 90 mmHg. No. Patient's initial sepsis screen is negative. Does the patient have a suspected source of infection? No. Patient's initial sepsis screen is negative. Risk Assessment: Do you want to hurt yourself or someone else? Patient reports no desire to harm self or others. Onset of symptoms was April 19, 2020. 13:45 Method Of Arrival: Ambulatory sv 13:45 Acuity: ELYSE 2 sv Historical: - Allergies: 13:45 No Known Allergies; sv - PMHx: 13:45 Hypertension; Diabetes - NIDDM; Renal Disease; sv - PSHx: 13:45 CABG; sv - Immunization history:: Flu vaccine status is unknown. - Social history:: Smoking status: Patient denies any tobacco usage or history of. ED Course: 13:43 Patient arrived in ED. as 13:43 Franklin Corado MD is Private Physician. as 13:43 Nicholas Mason PA is PHCP. cp 13:43 Santi Reyes MD is Attending Physician. cp 13:46 Jessica Ivan RN is Primary Nurse. tw2 13:46 Triage completed. sv 13:46 Arm band placed on Patient placed in an exam room, on a stretcher. sv 18:41 Franklin Corado MD is Hospitalizing Provider. sv 19:25 Nicholas Wagner MD is Attending Physician. daisy 19:42 Primary Nurse role handed off by Jessica Ivan, RN mw2 20:04 Patient admitted, IV remains in place. ea Administered Medications: No medications were administered Outcome: 18:42 Decision to Hospitalize by Provider. 19:52 Admitted to Med/surg accompanied by tech, room 214, on monitor, Report called to ea Receiving nurse on second floor 20:29 Patient left the ED. ea Signatures: Vicky Maier, RN RN Nicholas Bond MD MD cha Martinez, Amelia as Nicholas Mason, PA PA Jessica Decker, RN RN tw2 Alesia Yao, RN RN Arely Toledo mw2
[2020-04-20] MEDS ORDERED: PNEUMOCOCCAL VACCINE 0.5 ML IMVAC ONE (21:00)
[2020-04-20] MEDS: FERROUS SULFATE 325 MG TAB PO SCH (21:21)
[2020-04-21 03:33] VITALS: O2SAT 100
[2020-04-21 06:38] LABS: Absolute Lymphocytes (CBC) 1.1 K/uL (0.7-4.9); Basophils % 0.4 % (0-1.3); Lymphocytes % 14.8 % (15.3-44.8); MPV 9.8 fL (7.6-11.3); RBC Red Blood Cell Count 2.58 M/uL (4.33-5.43)
[2020-04-21 06:54] LABS: Albumin 3.2 g/dL (3.4-5.0); Bilirubin Total 0.9 mg/dL (0.2-1.0); Potassium 4.4 mmol/L (3.5-5.1); Protein, Total 6.9 g/dL (6.4-8.2)
[2020-04-21] MEDS: INSULIN -REGULAR HUMAN 50 UNIT/0.5 ML ML SQ SCH ×3 (07:30→16:30)
[2020-04-21 07:48] LABS: Blood Morphology Comment NOTED (NOT SEEN); Ovalocytes 1+; Platelet Estimate ADEQ; Platelets, Giant FEW
--- NOTE | 2020-04-21 08:10 | ECHO ---
HEIGHT: 5 ft 4 in WEIGHT: 148 lb 0 oz DATE OF STUDY: 04/20/[address]: Franklin Corado MD 2-DIMENSIONAL: YES M.MODE: YES DOPPLER: YES COLOR FLOW: YES TDS: PORTABLE: DEFINITY: BUBBLE STUDY: DIAGNOSIS: SHORTNESS OF BREATH CARDIAC HISTORY: CATHERIZATION: YES SURGERY: YES PROSTHETIC VALVE: NO PACEMAKER: NO MEASUREMENTS (cm) DIASTOLIC (NORMALS) SYSTOLIC (NORMALS) IVSd 1.1 (0.6-1.2) LA Diam 4.5 (1.9-4.0) LVEF 16% LVIDd 5.4 (3.5-5.7) LVIDs 5.0 (2.0-3.5) %FS 7% LVPWd 1.1 (0.6-1.2) Ao Diam 2.5 (2.0-3.7) 2 DIMENSIONAL ASSESSMENT: RIGHT ATRIUM: NORMAL LEFT ATRIUM: ENLARGED RIGHT VENTRICLE: NORMAL LEFT VENTRICLE: SEVERELY DEPRESSED TRICUSPID VALVE: MODERATE TRICUSPID REGURGITATION MITRAL VALVE: MILD MITRAL REGURGITATION PULMONIC VALVE: NORMAL AORTIC VALVE: SEVERE AORTIC STENOSIS PERICARDIAL EFFUSION: NONE AORTIC ROOT: NORMAL LEFT VENTRICULAR WALL MOTION: SEVERE GLOBAL HYPOKINESIS DOPPLER/COLOR FLOW: SEE BELOW COMMENTS: SEVERELY DEPRESSED LEFT VENTRICULAR EJECTION FRACTION OF 15-20%. DIASTOLIC DYSFUNCTION. MODERATE PULMONARY HYPERTENSION. RIGHT VENTRICULAR SYSTOLIC PRESSURE 45-50mmHg. SEVERE AORTIC VALVE STENOSIS. MODERATE TRICUSPID REGURGITATION. MILD MITRAL REGURGITATION. TECHNOLOGIST: DILLON CORREIA
--- NOTE | 2020-04-21 08:15 | P.PN ---
Subjective Date of Service: 04/21/20 Primary Care Provider: Deidre Garcia Chief Complaint: Severe aortic stenosis Subjective: No new changes Review of Systems 10-point ROS is otherwise unremarkable (nausea has resolved. no syncopal events) Physical Examination - Vital Signs Temperature: 97.0 F Blood Pressure: 98/54 Pulse: 66 Respirations: 16 Pulse Ox (%): 96 - Physical Exam General: Alert, In no apparent distress HEENT: Atraumatic, PERRLA, EOMI Neck: Supple, JVD not distended Respiratory: Clear to auscultation bilaterally, Normal air movement Cardiovascular: Regular rate/rhythm, Normal S1 S2 Gastrointestinal: Normal bowel sounds, No tenderness Musculoskeletal: No tenderness Integumentary: No rashes Neurological: Normal speech, Normal tone, Normal affect Lymphatics: No axilla or inguinal lymphadenopathy Assessment & Plan - Problems (Diagnosis) (1) Aortic stenosis Current Visit: Yes Status: Acute Plan: have discussed with Dr. Pierre. Plans for a stat echo. See if we need to transfer him for a stat replacement. 04/21/[address] Lam last night. He has a very tight stenosis of his aorta. The patent needs to be transfered to a facility with ccu He is aware of this Have called his daughter and discussed. After the surgery we need to monitor him for six months to see if his cardiac function recovers. His EF was 15% per Dr. Lam Qualifiers: Cardiac valve disease etiology: nonrheumatic Qualified Code(s): I35.0 - Nonrheumatic aortic (valve) stenosis (2) ESRD (end stage renal disease) on dialysis Current Visit: Yes Status: Acute Plan: Consult Dr. Jackson. Dr. Mcmahon would like to not have dialysis tomorrow as it may drop his blood pressure. (3) DM2 (diabetes mellitus, type 2) Current Visit: Yes Status: Acute Qualifiers: Chronic kidney disease stage: on chronic dialysis Discharge Plan: Transfer Plan to discharge in: 24 Hours - Code Status/Comfort Care Code Status Assessed: No Physician Review: Patient Assessed, Agree with Above Assessment and Plan Critical Care: No Time Spent Managing Pts Care (In Minutes): 35
[2020-04-21] MEDS: FERROUS SULFATE 325 MG TAB PO SCH ×4 (11:06→22:39)
[2020-04-21] MEDS ORDERED: EPOETIN 4,000 UNIT/ML VIAL IV SCH (11:15)
[2020-04-21] MEDS ORDERED: MIDODRINE HCL 5 MG TABLET PO PRN (11:15)
--- NOTE | 2020-04-21 11:27 | P.CNS ---
Date of Consult: 04/21/20 Reason for Consult: ESRD, fluid and electrolytes managament Primary Care Provider: Deidre Garcia Chief Complaint: Severe aortic stenosis History of Present Illness: A 75 Y/o man with PMHx of ESRD on HD MWF, CAD S/P CABG in 2013, DM , HTN , CHF and severe Aortic stenosis S/P valvae replacement last week as per Pt , and HX of cardica arrest recently pt was presented for weakness and syncopal episodes Pt had multiple hospitalizations recently at [facility] for syncope , one hospital course complicated by cardiac arrest , he had valvae replacement last week, still have syncopal episdoe , yesterday has 2 episodes, , was hypotensive and decide to come to ER Review of Systems: Head and Neck: No red eye. No ear pain. GI: No nausea, no vomiting. : No polyuria, no dysuria, no hematuria. Respiratory: have shortness of breath. Cardiovascular: No chest pain or palpitation Endocrine: No polydipsia. Skin: No rash. Neuro: syncopal episodes Musculoskeletal: No back pain . Physical exam general: AAOX3, blind , NAD , obese Neck; Supple, No elevated JVD hear: RRR, normal S1,2 no murmur or rub Chest: CTAB, no rales or wheezes Abdomen: Soft , Nt Extremities +2 edema A/P ESRD on HD MWF HD today Cont HD , renal dose meds elevated LFT possibly due to STATIn vs shocked liver will send for Hepatitis panel cont to monitor Syncopal episdoes possibly due to cardiology following TTE Anemia of chronic disease Cont epogen DM SSI total time spent 45min Allergies No Known Allergies Allergy (Verified 04/20/20 21:23) Home Medications: Albuterol Sulfate [Proair Respiclick] 1 puff IH Q6HR PRN 10/31/18 Guaifenesin/Codeine Phosphate [Guaifenesin-Codeine Syrup] 5 ml PO Q6H PRN 10/31/18 Montelukast Sodium [Singulair] 5 mg PO DAILY 10/31/18 carvediloL [Coreg*] 1 tab PO BID 10/31/18 Ferrous Sulfate [Iron] 325 mg PO TID 30 Days #90 tablet 11/01/18 Furosemide [Lasix] 40 mg PO DAILY 30 Days #90 tab 11/01/18 calcitrioL [Calcitriol] 0.5 mcg PO DAILY 30 Days #30 capsule 11/01/18 - Past Medical/Surgical History Diabetic: Yes -: hypertension -: renal dse -: NIDDM -: HD MWF -: CABG - Social History Alcohol use: No CD- Drugs: No Caffeine use: Yes Place of Residence: Home Physical Examination Temp Pulse Resp BP Pulse Ox 97.0 F 66 16 98/54 L 96 04/21/20 08:15 04/21/20 08:15 04/21/20 08:15 04/21/20 08:15 04/21/20 08:15
[2020-04-21] MEDS: ALBUMIN HUMAN 25% 50 ML IV ONE ×2 (11:46→12:29)
[2020-04-21] MEDS: ONDANSETRON 4 MG/2 ML VIAL IV PRN (17:29)
[2020-04-22 00:21] VITALS: BP 114/55; TEMP 97.2
--- NOTE | 2020-04-22 11:40 | P.DS ---
Admission Date: 04/20/20 Discharge Date: 04/22/20 Primary Care Provider: Deidre Garcia Disposition: [facility] Discharge Condition: FAIR Reason for Admission: Severe aortic stenosis - Problems (1) Aortic stenosis Status: Acute Qualifiers: Cardiac valve disease etiology: nonrheumatic Qualified Code(s): I35.0 - No nrheumatic aortic (valve) stenosis (2) ESRD (end stage renal disease) on dialysis Status: Acute (3) DM2 (diabetes mellitus, type 2) Status: Acute Qualifiers: Chronic kidney disease stage: on chronic dialysis Brief History of Present Illness: Patient of Deidre Garcia. With a pmh of CAD w/ CABG in . dm2, ESRD. The patient was having syncopal episodes in Feb. Went to [facility] where he had a cath procedure. The patient started having syncopal episodes last month went to the [place] ER Was sent to [place] Had a cath. Coded the evening after the cath. Had hematemesis. Negative EGD He then had a ballon angioplasty on Friday. Discharged on Friday. He has several syncopal episodes this week since his discharge. The patient had 2 last night. Refused the first EMS. Went with the second EMS was discharged at 7 am this morning and came to the office. He was very week in the office with a bp of 85/71. Discussed with his regular permit review assistant Dr. Graff. We both agreed he needed to be inpatient. Was sent to the hospital for direct admission. Have spoken to Dr. Lam in the culture media laboratory assistant. We both went to exam the patient. Dr. Mcmahon feels this is a severe aortic stenosis based on history and physical exam. Hospital Course: Patient was sent from the office. He remained in the Hospital He needed to be in a cardiac unit. Needs a valve replacement. Keeping him here on a monitor. We were trying to transfer him. He was accepted in [place]. Unfortunately there is no beds available, this is most likely due to the pandemic. He was able to leave this morning at approx. 6 this morning. Will have him follow up with Mrs Garcia. and Dr. Mcmahon Vital Signs/Physical Exam: Temp Pulse Resp BP Pulse Ox 97.2 F 77 18 114/55 L 100 04/22/20 00:00 04/22/20 00:00 04/22/20 00:00 04/22/20 00:00 04/22/20 00:00 please see the PE from 04/21/20 General: Alert, In no apparent distress HEENT: Atraumatic, PERRLA, EOMI Neck: Supple, JVD not distended Respiratory: Clear to auscultation bilaterally, Normal air movement Cardiovascular: Regular rate/rhythm, Normal S1 S2, Systolic murmur (aortic area) Gastrointestinal: Normal bowel sounds, No tenderness Musculoskeletal: No tenderness Integumentary: No rashes Neurological: Normal speech, Normal tone, Normal affect Lymphatics: No axilla or inguinal lymphadenopathy Laboratory Data at Discharge: WBC Cancelled 04/22/20 06:00 Hgb Cancelled 04/22/20 06:00 Hct Cancelled 04/22/20 06:00 Plt Count Cancelled 04/22/20 06:00 PT 19.0 SECONDS (9.5-12.5) H 04/20/20 15:37 INR 1.64 04/20/20 15:37 Sodium Cancelled 04/22/20 06:00 Potassium Cancelled 04/22/20 06:00 BUN Cancelled 04/22/20 06:00 Creatinine Cancelled 04/22/20 06:00 Glucose Cancelled 04/22/20 06:00 Total Bilirubin Cancelled 04/22/20 06:00 AST Cancelled 04/22/20 06:00 ALT Cancelled 04/22/20 06:00 Alkaline Phosphatase Cancelled 04/22/20 06:00 Home Medications: Albuterol Sulfate [Proair Respiclick] 1 puff IH Q6HR PRN 10/31/18 Guaifenesin/Codeine Phosphate [Guaifenesin-Codeine Syrup] 5 ml PO Q6H PRN 10/31/18 Montelukast Sodium [Singulair] 5 mg PO DAILY 10/31/18 carvediloL [Coreg*] 1 tab PO BID 10/31/18 Ferrous Sulfate [Iron] 325 mg PO TID 30 Days #90 tablet 11/01/18 Furosemide [Lasix] 40 mg PO DAILY 30 Days #90 tab 11/01/18 calcitrioL [Calcitriol] 0.5 mcg PO DAILY 30 Days #30 capsule 11/01/18 Diet: Renal Activity: Ad makenzie Followup: Franklin Corado MD [Primary Care Provider] - Time spent managing pt's care (in minutes): 30
== END 2020-04-22 01:20 | disposition short-term general hospital (02) | DRG 306 ==
LOC: EDSTATUS 13:41 → ER 13:41 → ERHOLD 13:44 → 2ND 19:48
PROVIDERS: ADMIT Internal Medicine; ATTEND Internal Medicine
DX: I35.0 Nonrheumatic aortic (valve) stenosis (principal); I50.23 Acute on chronic systolic (congestive) heart failure; N18.6 End stage renal disease; I13.2 Hypertensive heart and chronic kidney disease with heart failure and with stage 5 chronic kidney disease, or end stage renal disease; E11.22 Type 2 diabetes mellitus with diabetic chronic kidney disease; D63.8 Anemia in other chronic diseases classified elsewhere; R79.89 Other specified abnormal findings of blood chemistry; Z79.899 Other long term (current) drug therapy; Z95.1 Presence of aortocoronary bypass graft; Z95.2 Presence of prosthetic heart valve; Z99.2 Dependence on renal dialysis; Z20.822 Contact with and (suspected) exposure to COVID-19
CPT/HCPCS: 36415; 80053; 82947; 85025; 85610; 90935; 93005; 93306; 99281; J1644; J2405; P9047; Q5105; U0003

== ENCOUNTER 2020-05-03 19:25 | Inpatient (IN) | payer OTHER ==
[2020-05-03 22:10] LABS: Absolute Lymphocytes (CBC) 0.6 K/uL (0.7-4.9); Basophils % 0.6 % (0-1.3); Hematocrit 21.1 % (39.6-49.0); Lymphocytes % 7.6 % (15.3-44.8); MPV 9.8 fL (7.6-11.3); RBC Red Blood Cell Count 2.18 M/uL (4.33-5.43)
[2020-05-03 22:11] LABS: Protime INR 1.4
[2020-05-03 22:35] LABS: BUN Blood Urea Nitrogen 46 mg/dL (7-18); Bicarbonate 24 mmol/L (21-32); Glucose Level 124 mg/dL (74-106); Potassium 4.1 mmol/L (3.5-5.1); Sodium Level 136 mmol/L (136-145)
[2020-05-03 22:36] LABS: NT PRO-BNP > 175000 pg/mL (<450)
--- NOTE | 2020-05-03 23:32 | ER ---
Nurse's Notes [facility] Name: Jodi Steve Age: 75 yrs Sex: Male : 1945 Arrival Date: 05/03/2020 Time: 19:26 Bed 2 Private MD: Diagnosis: End stage renal disease;Cellulitis of right toe;Cellulitis of left toe;Gangrene, not elsewhere classified;Atherosclerosis of [place] arteries of extremities with intermittent claudication, right leg;Atherosclerosis of [place] arteries of extremities with intermittent claudication, left leg Presentation: 05/03 19:37 Chief complaint: Patient states: Last dialysis Friday at [facility] ([place]). They don't ll1 have water so he couldn't get dialysis today. Dr. Corado couldn't direct admit due to no beds, so he told them to come to the ER for eval. Feet swelling with open blisters to both feet for 3 days. R foot 2nd digit has large black wound to it. L foot 3rd digit starting to turn black. No fever. Coronavirus screen: Client denies travel out of the [place] in the last 14 days. At this time, the client does not indicate any symptoms associated with coronavirus-19. Ebola Screen: Patient denies travel to an Ebola-affected area in the 21 days before illness onset. Initial Sepsis Screen: Does the patient meet any 2 criteria? HR > 90 bpm. No. Patient's initial sepsis screen is negative. Does the patient have a suspected source of infection? Yes: Skin breakdown/wound. Risk Assessment: Do you want to hurt yourself or someone else? Patient reports no desire to harm self or others. Onset of symptoms was April 30, 2020. 19:37 Method Of Arrival: Wheelchair ll1 19:37 Acuity: ELYSE 3 ll1 Historical: - Allergies: 19:40 No Known Allergies; ll1 - PMHx: 19:40 Diabetes - NIDDM; Hypertension; Renal Disease; ll1 - PSHx: 19:40 CABG; ll1 19:41 TAVR heart valve replacement; ll1 - Immunization history:: Flu vaccine is up to date. - Social history:: Smoking status: Patient denies any tobacco usage or history of. - Family history:: not pertinent. - Hospitalizations: : No recent hospitalization is reported. Screenin:04 Abuse screen: Denies threats or abuse. Denies injuries from another. Nutritional rv screening: No deficits noted. Tuberculosis screening: No symptoms or risk factors identified. Fall Risk None identified. Assessment: 22:02 General: Appears comfortable, Behavior is calm, cooperative. Pain: Complains of pain in rv right foot and left foot. Neuro: Level of Consciousness is awake, alert, obeys commands, Oriented to person, place, time, situation. Cardiovascular: Patient's skin is warm and dry. Rhythm is sinus rhythm. Respiratory: Airway is patent Respiratory effort is even, unlabored. Derm: Skin is black, red, toes, right and left foot. 23:24 Reassessment: DAUGHTER IS UPDATED VIA PHONE CALL. PATIENT IS COMFORTABLE, SLEEPING FLAT rv ON BED AT THE MOMENT. VITAL SIGNS STABLE. 05/04 13:48 Reassessment: report given to 2nd floor. jd3 Vital Signs: 05/03 19:37 BP 129 / 54; Pulse 98; Resp 17; Temp 98.2; Pulse Ox 100% ; Weight 67.59 kg; Height 5 ll1 ft. 4 in. (162.56 cm); Pain 2/10; 21:30 BP 120 / 57; Pulse 94; Resp 17; Pulse Ox 100% on R/A; rv 22:00 BP 140 / 77; Pulse 95; Resp 16; Pulse Ox 100% on R/A; rv 23:25 BP 122 / 61; Pulse 87; Resp 17; Pulse Ox 100% on R/A; rv 19:37 Body Mass Index 25.58 (67.59 kg, 162.56 cm) ll1 ED Course: 19:26 Patient arrived in ED. cl3 19:40 Triage completed. ll1 19:41 Arm band placed on. ll1 21:24 Ciic Castaneda, RN is Primary Nurse. 21:25 Luke Dumont MD is Attending Physician. rn 21:29 Migue Lopez, JULIO is Primary Nurse. rv 21:45 Inserted saline lock: 20 gauge in right wrist, using aseptic technique. Blood collected.rv 21:45 Initial lab(s) drawn, by me, sent to lab. EKG done, by ED staff, reviewed by Luke Dumont MD COVID swab sent to lab. Wound culture swab sent to lab. 21:45 First set of blood cultures drawn by me. rv 22:00 Second set of blood cultures drawn by me. rv 22:04 Patient has correct armband on for positive identification. Pulse ox on. NIBP on. rv 22:27 Lower Extremity Arterial Bilat US In Process Unspecified. EDMS 22:32 XRAY Foot LEFT 3 View In Process Unspecified. EDMS 22:32 XRAY Foot RIGHT 3 View In Process Unspecified. EDMS 22:57 Notified ED physician of a critical lab result(s). hgb 7.0, creatinine 7.46. rv 23:30 Franklin Corado MD is Hospitalizing Provider. rn 05/04 07:25 Primary Nurse role handed off by Migue Lopez, JULIO em1 Administered Medications: 05/03 23:33 Drug: LevaQUIN 500 mg Volume: 100 ml; Route: IVPB; Infused Over: 60 mins; Site: right wh forearm; 05/04 00:14 Follow up: Response: No adverse reaction; IV Status: Completed infusion rv 00:15 Drug: vancoMYCIN 1 grams Route: IVPB; Infused Over: 2 hrs; Site: right forearm; rv Outcome: 05/03 23:32 Decision to Hospitalize by Provider. rn 05/04 13:49 Patient left the ED. jd3 Signatures: Dispatcher [employer] EDMS Luke Dumont MD MD rn Martinez, Eric em1 Cici Castaneda RN RN Rayray Maxwell RN RN jd3 Migue Lopez, RN Lisbeth Hernandez 3 Americo Joe RN RN ll1 Corrections: (The following items were deleted from the chart) 05/03 19:43 19:37 Chief complaint: Patient states: Last dialysis Friday at [facility] ([place]). They ll1 don't have water so he couldn't get dialysis today. Dr. Corado couldn't direct admit due to no beds, so he told them to come to the ER for eval. Feet swelling with open blisters to both feet for 3 days. No fever. ll1
--- NOTE | 2020-05-03 23:32 | EDPHYS ---
Physician Documentation [facility] Name: Jodi Steve Age: 75 yrs Sex: Male : 1945 Arrival Date: 05/03/2020 Time: 19:26 Bed 2 Private MD: ED Physician Luke Dumont HPI: 05/03 22:03 This 75 yrs old Male presents to ER via Wheelchair with complaints of Feet rn pain, needs dialysis. 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 Denies significant sob/cough/fever. Also reports a few days of toes turning black and appear infected, has not happened before, no trauma, and in setting of atleast 2-3 weeks of bilateral feet pain while walking, improves somewhat with rest. . Onset: The symptoms/episode began/occurred 3 day(s) ago. Severity of symptoms: At their worst the symptoms were mild in the emergency department the symptoms are unchanged. The patient has not experienced similar symptoms in the past. The patient has not recently seen a physician. Historical: - Allergies: 19:40 No Known Allergies; ll1 - PMHx: 19:40 Diabetes - NIDDM; Hypertension; Renal Disease; ll1 - PSHx: 19:40 CABG; ll1 19:41 TAVR heart valve replacement; ll1 - Immunization history:: Flu vaccine is up to date. - Social history:: Smoking status: Patient denies any tobacco usage or history of. - Family history:: not pertinent. - Hospitalizations: : No recent hospitalization is reported. ROS: 22:03 Constitutional: Negative for fever, chills, and weight loss, Eyes: Negative for injury, rn pain, redness, and discharge, Neck: Negative for injury, pain, and swelling, Cardiovascular: Negative for chest pain, palpitations, + lower ext edema Respiratory: Negative for shortness of breath, cough, wheezing, and pleuritic chest pain, Abdomen/GI: Negative for abdominal pain, nausea, vomiting, diarrhea, and constipation, MS/Extremity: + bilateral foot pain Skin: + ulcers and wounds to bilateral feet/toes. Neuro: Negative for headache, weakness Exam: 22:03 Constitutional: This is a well developed, well nourished patient who is awake, alert, rn and in no acute distress. Head/Face: Normocephalic, atraumatic. Cardiovascular: Regular rate and rhythm. No pulse deficits. Respiratory: No increased work of breathing, no retractions or nasal flaring. Abdomen/GI: soft, non-tender Skin: Warm, dry MS/ Extremity: Weakly palpable left DP pulse, non-palpable right DP pulse, erythema of bilateral forefoot, with gangrenous changes and purulence of right 2nd/3rd/4th toes and left 2/nd/3rd toe with open wounds in webspaces. + foul smell. Neuro: Awake and alert, GCS 15 Vital Signs: 19:37 BP 129 / 54; Pulse 98; Resp 17; Temp 98.2; Pulse Ox 100% ; Weight 67.59 kg; Height 5 ll1 ft. 4 in. (162.56 cm); Pain 2/10; 21:30 BP 120 / 57; Pulse 94; Resp 17; Pulse Ox 100% on R/A; rv 22:00 BP 140 / 77; Pulse 95; Resp 16; Pulse Ox 100% on R/A; rv 23:25 BP 122 / 61; Pulse 87; Resp 17; Pulse Ox 100% on R/A; rv 19:37 Body Mass Index 25.58 (67.59 kg, 162.56 cm) ll1 MDM: 21:25 Patient medically screened. rn 23:27 ED course: Pt with monophasic waveforms bilaterally, no occlusion, will admit to Dr. makayla Corado on IV abx. Given vanc and levaquin, can be adjusted accordingly for his dialysis. . 05/03 21:48 Order name: CBC with Diff rn 05/03 21:48 Order name: Basic Metabolic Panel; Complete Time: 23:06 rn 05/03 21:48 Order name: Protime (+inr); Complete Time: 23:06 rn 05/03 21:48 Order name: Ptt, Activated; Complete Time: 23:06 rn 05/03 21:48 Order name: Blood Culture Adult (2) rn 05/03 21:48 Order name: Wound Culture rn 05/03 21:48 Order name: Wound Culture rn 05/03 21:48 Order name: Procalcitonin; Complete Time: 23:06 rn 05/03 21:48 Order name: BNP; Complete Time: 23:06 rn 05/03 21:48 Order name: CBC with Automated Diff; Complete Time: 23:06 EDMS 05/03 23:17 Order name: SARS-COV-2 RT PCR; Complete Time: 23:26 EDWA 05/04 05:14 Order name: CBC with Automated Diff; Complete Time: 06:43 EDMS 05/04 05:41 Order name: Basic Metabolic Panel; Complete Time: 06:43 EDMS 05/03 21:47 Order name: Lower Extremity Arterial Bilat US rn 05/03 21:48 Order name: IV Start; Complete Time: 22:01 rn 05/03 21:48 Order name: EKG; Complete Time: 21:49 rn 05/03 21:48 Order name: EKG - Nurse/Tech; Complete Time: 22:01 rn 05/03 21:59 Order name: XRAY Foot LEFT 3 View rn 05/03 21:59 Order name: XRAY Foot RIGHT 3 View rn 05/04 10:22 Order name: Retic Count EDWA 05/04 10:24 Order name: Transferrin Sat/Iron Binding EDWA 05/04 10:44 Order name: ABO/RH typing EDWA 05/04 10:44 Order name: Antibody Screen EDWA 05/04 10:53 Order name: ABO/RH no charge EDMS Administered Medications: 23:33 Drug: LevaQUIN 500 mg Volume: 100 ml; Route: IVPB; Infused Over: 60 mins; Site: right wh forearm; 05/04 00:14 Follow up: Response: No adverse reaction; IV Status: Completed infusion rv 00:15 Drug: vancoMYCIN 1 grams Route: IVPB; Infused Over: 2 hrs; Site: right forearm; rv Disposition: 05/03/20 23:32 Hospitalization ordered by Franklin Corado for Inpatient Admission. Preliminary diagnosis are End stage renal disease, Cellulitis of right toe, Cellulitis of left toe, Gangrene, not elsewhere classified, Atherosclerosis of [place] arteries of extremities with intermittent claudication, right leg, Atherosclerosis of [place] arteries of extremities with intermittent claudication, left leg. - Bed requested for Telemetry/MedSurg (Inpatient). - Status is Inpatient Admission. jd3 - Condition is Stable. - Problem is new. - Symptoms have improved. Signatures: Dispatcher [employer] EDWA Luke Dumont MD MD rn Lasagna, Tonya RN RN tl1 Cici Castaneda RN RN Rayray Maxwell RN RN jd3 Gage Au RN RN ja1 Migue Lopez, RN RN Americo Neely RN RN ll1 Corrections: (The following items were deleted from the chart) 05/03 22:28 21:56 CORONAVIRUS+MRGALDINOZ ordered. EDWA EDMS 05/04 01:39 05/03 23:32 Hospitalization Ordered by Franklin Corado MD for Inpatient Admission. tl1 Preliminary diagnosis is End stage renal disease; Cellulitis of right toe; Cellulitis of left toe; Gangrene, not elsewhere classified; Atherosclerosis of [place] arteries of extremities with intermittent claudication, right leg; Atherosclerosis of [place] arteries of extremities with intermittent claudication, left leg. Bed requested for Telemetry/MedSurg (Inpatient). Status is Inpatient Admission. Condition is Stable. Problem is new. Symptoms have improved. rn 05/04 13:02 01:39 05/03/2020 23:32 Hospitalization Ordered by Franklin Corado MD for Inpatient ja1 Admission. Preliminary diagnosis is End stage renal disease; Cellulitis of right toe; Cellulitis of left toe; Gangrene, not elsewhere classified; Atherosclerosis of [place] arteries of extremities with intermittent claudication, right leg; Atherosclerosis of [place] arteries of extremities with intermittent claudication, left leg. Bed requested for [facility] ER HOLD. Status is Inpatient Admission. Condition is Stable. Problem is new. Symptoms have improved. tl1 13:49 13:02 05/03/2020 23:32 Hospitalization Ordered by Franklin Corado MD for Inpatient jd3 Admission. Preliminary diagnosis is End stage renal disease; Cellulitis of right toe; Cellulitis of left toe; Gangrene, not elsewhere classified; Atherosclerosis of [place] arteries of extremities with intermittent claudication, right leg; Atherosclerosis of [place] arteries of extremities with intermittent claudication, left leg. Bed requested for Telemetry/MedSurg (Inpatient). Status is Inpatient Admission. Condition is Stable. Problem is new. Symptoms have improved. ja1
[2020-05-03] MEDS ORDERED: Levofloxacin500mg IV 500 MG/100 ML BAG IV ONE (23:45)
[2020-05-03] MEDS ORDERED: VANCOMYCIN 1 GM/VIAL ONE (23:45)
[2020-05-03] MEDS ORDERED: NA CHLORIDE 0.9% 250 ML ONE (23:46)
[2020-05-04] MEDS ORDERED: ACETAMINOPHEN 500 MG TAB PO PRN (00:17)
[2020-05-04] MEDS ORDERED: ONDANSETRON 4 MG/2 ML VIAL IV PRN (00:17)
[2020-05-04 00:23] VITALS: BMI 25.5
[2020-05-04 05:08] LABS: Absolute Lymphocytes (CBC) 0.6 K/uL (0.7-4.9); Basophils % 0.5 % (0-1.3); Hematocrit 21.7 % (39.6-49.0); Lymphocytes % 8.8 % (15.3-44.8); MPV 10.1 fL (7.6-11.3); RBC Red Blood Cell Count 2.21 M/uL (4.33-5.43)
[2020-05-04 05:19] LABS: Potassium 4.3 mmol/L (3.5-5.1)
[2020-05-04] MEDS ORDERED: PNEUMOCOCCAL VACCINE 0.5 ML IMVAC ONE (08:00)
[2020-05-04] MEDS ORDERED: VANCOMYCIN 500 MG in NA CHLORIDE 0.9% 100 ML IVPB SCH (08:00)
--- NOTE | 2020-05-04 09:04 | RAD REPORT ---
EXAM DESCRIPTION: RAD - Foot Left 3 View - 05/03/2020 10:34 pm CLINICAL HISTORY: eval for osteoischemic soft tissue wounds, left foot pain COMPARISON: No comparisons FINDINGS: No fracture, dislocation or periosteal reaction. No destructive bone process confirmed. Th ere is questionable cortical thinning along the medial margin of the second distal phalanx tuft. No air or foreign body in the soft tissues. IMPRESSION: No osteomyelitis confirmed.
--- NOTE | 2020-05-04 09:06 | RAD REPORT ---
EXAM DESCRIPTION: RAD - Foot Right 3 View - 05/03/2020 10:36 pm CLINICAL HISTORY: eval for osteo, soft tissue wound, foot pain COMPARISON: No comparisons FINDINGS: No fracture, dislocation or periosteal reaction. No destructive bone process identified. N o osteomyelitis is localized. No air or foreign body in the soft tissues. IMPRESSION: Negative right foot examination. No osteomyelitis identifiable at this time.
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
[2020-05-04 10:13] LABS: RBC Red Blood Cell Count 2.19 M/uL (4.33-5.43)
--- NOTE | 2020-05-04 10:33 | RAD REPORT ---
EXAM DESCRIPTION: US - Lower Extremity Arterial Bilat - 05/03/2020 10:27 pm CLINICAL HISTORY: 75 years Male, gangrene toes;Pain COMPARISON: None. TECHNIQUE: Grayscale, color Doppler, and spectral Doppler imaging of the bilateral lower extremity a rteries. FINDINGS: Velocities: (All velocities in centimeters per second) Right lower extremity- SHORTHAND REPORTER: 142 Mid SFA: 81 Popliteal: 35 STATE GAME WARDEN: 25 DPA: 5 Left lower extremity- SHORTHAND REPORTER: 74 Mid SFA: 86 Popliteal: 57 STATE GAME WARDEN: 24 DPA: 11 Doppler imaging: Right leg: Atherosclerotic vascular calcification. Multiphasic waveforms in the right common femora l and mid superficial femoral arteries. Significantly diminished velocity with spectral broadening in the right popliteal artery. Monophasic waveforms in the posterior tibial and dorsalis pedis artery. Left leg: Atherosclerotic vascular calcification. Multiphasic waveforms the left common femoral, mi d superficial femoral, and popliteal arteries. Monophasic waveforms the left dorsalis pedis and poste rior tibial arteries. IMPRESSION: 1. Diminished velocity and waveform change in the right popliteal artery. These findings suggest resolving stenosis in the distal right superficial femoral or proximal popliteal arteries. 2. Monophasic waveforms in the bilateral posterior tibial and dorsalis pedis artery suggest flow-limi ting stenosis within these arteries. Electronically signed by: Rio Fagan 05/03/2020 11:11 PM PRECIPITATOR OPERATOR Due to temporary technical issues with the PACS/Fluency reporting system, reports are being signed by the in house radiologist without review as a courtesy to ensure prompt reporting. The interpreting r adiologist is fully responsible for the content of the report.
[2020-05-04] MEDS ORDERED: VANCOMYCIN/NS 1 gm 1 GM/250 ML BAG IVPB SCH (12:00)
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
[2020-05-04] MEDS ORDERED: NA CHLORIDE 0.9% 250 ML ONE ×2 (12:32→13:22)
[2020-05-04] MEDS ORDERED: VANCOMYCIN 1 GM in NA CHLORIDE 0.9% 500 ML IVPB ONE (16:00)
[2020-05-04] MEDS: MORPHINE 4 MG/ML SYR IM PRN (16:34)
[2020-05-04] MEDS ORDERED: VANCOMYCIN 1 GM in NA CHLORIDE 0.9% 250 ML IVPB ONE (18:00)
[2020-05-04 18:27] LABS: Hematocrit 29.7 % (39.6-49.0)
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
--- NOTE | 2020-05-04 19:23 | PN ---
Date of Progress Note: 05/04/2020 Subjective: The patient seen on dialysis. The patient was admitted with over volume. Physical Examination: Vital Signs: Blood pressure of 134/70, pulse of 88. Chest: Crackles bilateral. Heart: S1, S2. Systolic murmur. Abdomen: Soft, nontender. Extremities: +2 edema, gangrenous toe on the right and middle and second toe on the left. Neurologic: Alert and oriented x3. Nonfocal. No tremor. Laboratory Data: Reviewed, hemoglobin 7, potassium 4.3. Assessment And Plan: 1. End-stage renal disease, over volume. We will challenge the patient. 2. Anemia of chronic kidney disease. Resume CHRIS with the presence of over volume. I am going to transfuse 2 unit on the dialysis. 3. Over volume. I increased the goal to 3500. We will challenge the patient. 4. Gangrenous toe. We will draw blood culture. We will start the patient on vancomycin. Follow up Doppler. Followup Cardiology to see if he is needing any angioplasty. Time spent discussing with the patient, examining the patient, exam [id number], placing order, discussing with staff and other consulting include including Cardiology and Primary 45 minutes. BERNABE Voice ID: [id number] Report ID: [id number] AMRIK
[2020-05-05] MEDS: MORPHINE 4 MG/ML SYR IM PRN ×2 (05:14→10:18)
[2020-05-05] MEDS: COLLAGENASE 30 GM OINTMENT TOP SCH (10:01)
--- NOTE | 2020-05-05 11:32 | P.PN ---
Subjective Date of Service: 05/05/20 Primary Care Provider: Mak Chief Complaint: Chf exacerbation ESRD Subjective Pt with ESRD on HD, missed dialysis , presented with fluid overload and Toes gangrene today No overnight events plan for Ct angio tomorrow Dialysis tomorrow after CT scan cont Abx Review of Systems: Head and Neck: No red eye. No ear pain. GI: denied nausea or diarrhea. : No polyuria. No dysuria. No hematuria. Balance Wheel Motion Inspector: N/A Respiratory: No shortness of breath. Cardiovascular: denied chest pain or palpitation Endocrine: No polydipsia. Skin: No rash. Neuro: denied neuropathy. Musculoskeletal: Toes gangrene Physical exam general: AAOX3, NAD , obese Neck; Supple, No elevated JVD hear: RRR, normal S1,2 no murmur or rub Chest: CTAB, no rales or wheezes Abdomen: Soft , Nt Extremities Toes gangrene A/P End-stage renal disease on HD TTast HD tomorrow Monitor vanco level renal dose meds Anemia of chronic disease Cont epogen HTN Controlled fluid overload cont HD Toesg gangrene cont wound care and Abx CT angio tomorrow total time spent 30min Physical Examination - Vital Signs Temperature: 97.0 F Blood Pressure: 141/72 Pulse: 96 Respirations: 17 Pulse Ox (%): 100 - Studies Microbiology Data (last 24 hrs): 05/03/20 21:48 Wound - Left Foot Gram Stain - Final 05/03/20 21:48 Wound - Right Foot Gram Stain - Final Assessment And Plan Physician Review: Patient Assessed, Agree with Above Assessment and Plan
[2020-05-05] MEDS ORDERED: HYDROMORPHONE HCL 0.5 MG/0.5 ML INJ IV PRN (11:33)
--- NOTE | 2020-05-05 11:44 | P.PN ---
Subjective Date of Service: 05/05/20 Primary Care Provider: Mak Chief Complaint: Chf exacerbation ESRD Subjective: New changes (pedal edema improved. His right 2nd toe is still discolored and painful after dialysis) Review of Systems Musculoskeletal: Foot Pain (12/24) Physical Examination - Vital Signs Temperature: 97.0 F Blood Pressure: 141/72 Pulse: 96 Respirations: 17 Pulse Ox (%): 100 - Physical Exam General: Alert, In no apparent distress HEENT: Atraumatic, PERRLA, EOMI Neck: Supple, JVD not distended Respiratory: Clear to auscultation bilaterally, Normal air movement Cardiovascular: Regular rate/rhythm, Normal S1 S2 Gastrointestinal: Normal bowel sounds, No tenderness Musculoskeletal: No tenderness, Other (cynosis and ulceration of the right 2nd toe) Integumentary: No rashes Neurological: Normal speech, Normal tone, Normal affect Lymphatics: No axilla or inguinal lymphadenopathy - Studies Microbiology Data (last 24 hrs): 05/03/20 21:48 Wound - Left Foot Gram Stain - Final 05/03/20 21:48 Wound - Right Foot Gram Stain - Final Assessment & Plan - Problems (Diagnosis) (1) Diabetic foot Current Visit: Yes Status: Acute Plan: Patient is having a lot of pain. Will order a ct scan and consult Dr. Dean. If necessary Dr. Lam will do an angiogram on Friday. Will have Dr. Jackson monitor his dialysis. Will continue vancomycin and await blood cultures. Will have to improve his pain management. Will switch him from morphine to dilaudid and titrate up as necessary. Will also restart his home hydrocodone. (2) CHF exacerbation Current Visit: Yes Status: Acute Plan: Will need to get the patient to dialysis. Will see how that improves his pedal edema. 05/05 Improved Qualifiers: Heart failure type: systolic Qualified Code(s): I50.23 - Acute on chronic systolic (congestive) heart failure (3) Peripheral vascular disease Current Visit: Yes Status: Acute Plan: He has mild impairment. Which is normal for a dm2 with ESRD. Will start him on santyl. He had good arterial blood flows after his TVAR procedure. Per Dr. Lam. Will start santyl on the wound in the patient. may consider a ct of the foot. However there does not seem to be any signs of inflammation on the xray. Will await the official xray report. (4) Anemia due to end stage renal disease Current Visit: Yes Status: Acute Plan: transfuse 2 units during dialysis (5) Aortic stenosis Current Visit: No Status: Acute Qualifiers: Cardiac valve disease etiology: nonrheumatic Qualified Code(s): I35.0 - Nonrheumatic aortic (valve) stenosis (6) DM2 (diabetes mellitus, type 2) Current Visit: No Status: Acute Plan: will continue home insulin . 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 Jackson for dialysis. (8) Hypothyroid Current Visit: No Status: Acute Plan: restart his home meds. Will check a tsh. Qualifiers: Hypothyroidism type: unspecified Qualified Code(s): E03.9 - Hypothyroidism, unspecified Physician Review: Patient Assessed, Agree with Above Assessment and Plan Critical Care: No Time Spent Managing Pts Care (In Minutes): 40
--- NOTE | 2020-05-05 14:36 | RAD REPORT ---
EXAM DESCRIPTION: CT - Foot Right Wo Con - 05/05/2020 1:47 pm CLINICAL HISTORY: Foot pain and swelling COMPARISON: May 03, 2020 x-ray TECHNIQUE: Computed axial tomography right foot obtained with coronal and sagittal reconstruction All CT scans are performed using dose optimization technique as appropriate and may include automated exposure control or mA/KV adjustment according to patient size. FINDINGS: Soft tissue swelling. No soft tissue abscess is noted. No bony destructive lesion is seen. No fracture or dislocation IMPRESSION: These findings may indicate a cellulitis. No radiographic evidence of osteomyelitis
--- NOTE | 2020-05-05 14:46 | RAD REPORT ---
EXAM DESCRIPTION: CT - Foot Left Wo Con - 05/05/2020 1:47 pm CLINICAL HISTORY: Foot pain and swelling COMPARISON: X-ray May 03 2020 TECHNIQUE: Computed axial tomography left foot. Coronal and sagittal reconstruction performed All CT scans are performed using dose optimization technique as appropriate and may include automated exposure control or mA/KV adjustment according to patient size. FINDINGS: Soft tissue swelling. No soft tissue abscess is seen. No fracture or dislocation. No bony destructive lesion noted IMPRESSION: Soft tissue swelling may indicate cellulitis No radiographic evidence of osteomyelitis
--- NOTE | 2020-05-05 14:57 | P.CNS ---
Date of Consult: 05/05/20 Reason for Consult: discoloration of toes Primary Care Provider: Mak Chief Complaint: Chf exacerbation ESRD Allergies No Known Allergies Allergy (Verified 05/04/20 00:23) Home Medications: Aspirin [Santana Chewable] 81 mg PO DAILY 05/04/20 Atorvastatin Calcium [Lipitor] 80 mg PO BEDTIME 05/04/20 Carvedilol [Coreg] 3.125 mg PO BIDWM 05/04/20 Clopidogrel Bisulfate [Plavix] 75 mg PO DAILY 05/04/20 Furosemide [Lasix] 40 mg PO DAILY 05/04/20 Gabapentin 300 mg PO DAILY 05/04/20 Hydrocodone Bit/Acetaminophen [Hydrocodon-Acetaminoph 7.5-325] 1 each PO Q6HP PRN 05/04/20 Levothyroxine [Synthroid] 50 mcg PO [id number] 05/04/20 Pantoprazole [Protonix Tab] 40 mg PO DAILY 05/04/20 lisinopriL [Prinivil] 5 mg PO DAILY 05/04/20 - Past Medical/Surgical History Diabetic: Yes -: Hypertension -: Renal dse -: NIDDM -: HD MWF -: CABG - Social History Alcohol use: No CD- Drugs: No Caffeine use: Yes Place of Residence: Home Review of Systems 10-point ROS is otherwise unremarkable Physical Examination Temp Pulse Resp BP Pulse Ox 97.4 F 101 H 17 152/76 H 100 05/05/20 12:00 05/05/20 12:00 05/05/20 12:00 05/05/20 12:00 05/05/20 12:00 General: Alert, In no apparent distress, Oriented x3 Cardiovascular: No edema, Other (: 1. Diminished velocity and waveform change in the right popliteal artery. These findings suggest resolving stenosis in the distal right superficial femoral or proximal popliteal arteries.), Abnormal pulses Capillary refill: >2 Seconds Musculoskeletal: No clubbing, No swelling, No contractures, No erythema, No tenderness, No warmth Integumentary: Cyanosis (2s right foot) Neurological: Abnormal sensation Laboratory Data (last 24 hrs) 05/04/20 18:08: Hgb 10.0 L D, Hct 29.7 L D - Problems (1) Diabetic foot Current Visit: Yes Status: Acute (2) Peripheral vascular disease Current Visit: Yes Status: Acute Conclusions/Impression: early stage gangrene/cyanosis right second and third digits with pvd and possible proximal arterial stenosis per arterial dopplers right. Will continue to monitor the toes and would consider vascular intervention however with the apparent issue being small vessel in nature, intervention may not help Physician Review: Patient Assessed, Agree with Above Assessment and Plan
[2020-05-05] MEDS: carvediloL 3.125 MG TAB PO SCH (16:22)
[2020-05-05] MEDS: HYDROCODONE/APAP 7.5/325 MG TAB PO PRN (16:23)
[2020-05-05] MEDS: ATORVASTATIN 80 MG TAB PO SCH (21:24)
[2020-05-06] MEDS: LEVOTHYROXINE SOD 0.05 MG TABLET PO SCH (05:43)
[2020-05-06 06:49] LABS: Absolute Lymphocytes (CBC) 0.5 K/uL (0.7-4.9); Hematocrit 28.7 % (39.6-49.0); Lymphocytes % 8.4 % (15.3-44.8); RBC Red Blood Cell Count 3.06 M/uL (4.33-5.43)
[2020-05-06 07:20] LABS: Albumin 2.7 g/dL (3.4-5.0); Bilirubin Total 0.9 mg/dL (0.2-1.0); Potassium 4.2 mmol/L (3.5-5.1); Thyroid Stimulating Hormone 0.079 uIU/mL (0.360-3.740)
[2020-05-06] MEDS: HYDROCODONE/APAP 7.5/325 MG TAB PO PRN ×2 (08:48→15:50)
[2020-05-06] MEDS: FUROSEMIDE 40 MG TABLET PO SCH (08:48)
[2020-05-06] MEDS: CLOPIDOGREL 75 MG TABLET PO SCH (08:48)
[2020-05-06] MEDS: carvediloL 3.125 MG TAB PO SCH ×2 (08:48→17:00)
[2020-05-06] MEDS: lisinopriL 5 MG TAB PO SCH (08:49)
[2020-05-06] MEDS: PANTOPRAZOLE 40MG TABLET PO SCH (08:49)
[2020-05-06] MEDS: GABAPENTIN 300 MG CAP PO SCH (08:49)
[2020-05-06] MEDS: ASPIRIN 81 MG CHEWABLE TABLET PO SCH (08:49)
--- NOTE | 2020-05-06 09:11 | P.PN ---
Subjective Date of Service: 05/06/20 Primary Care Provider: Mak Chief Complaint: Chf exacerbation ESRD Subjective: No new changes Review of Systems 10-point ROS is otherwise unremarkable Musculoskeletal: Foot Pain (wound on the 2nd toes of both feet. ) Physical Examination - Vital Signs Temperature: 97.3 F Blood Pressure: 138/68 Pulse: 101 Respirations: 20 Pulse Ox (%): 97 - Physical Exam General: Alert, In no apparent distress HEENT: Atraumatic, PERRLA, EOMI Neck: Supple, JVD not distended Respiratory: Clear to auscultation bilaterally, Normal air movement Cardiovascular: Regular rate/rhythm, Normal S1 S2 Gastrointestinal: Normal bowel sounds, No tenderness Musculoskeletal: No tenderness Integumentary: No rashes Neurological: Normal speech, Normal tone, Normal affect Lymphatics: No axilla or inguinal lymphadenopathy - Studies Microbiology Data (last 24 hrs): 05/03/20 21:48 Wound - Left Foot Gram Stain - Final 05/03/20 21:48 Wound - Right Foot Gram Stain - Final Assessment & Plan - Problems (Diagnosis) (1) Diabetic foot Current Visit: Yes Status: Acute Plan: Patient is having a lot of pain. Will order a ct scan and consult Dr. Dean. If necessary Dr. Lam will do an angiogram on Friday. Will have Dr. Jackson monitor his dialysis. Will continue vancomycin and await blood cultures. Will have to improve his pain management. Will switch him from morphine to dilaudid and titrate up as necessary. Will also restart his home hydrocodone. 05/06 Plans for angiogram on Friday (2) CHF exacerbation Current Visit: Yes Status: Acute Plan: Will need to get the patient to dialysis. Will see how that improves his pedal edema. 05/05 Improved Qualifiers: Heart failure type: systolic Qualified Code(s): I50.23 - Acute on chronic systolic (congestive) heart failure (3) Peripheral vascular disease Current Visit: Yes Status: Acute Plan: He has mild impairment. Which is normal for a dm2 with ESRD. Will start him on santyl. He had good arterial blood flows after his TVAR procedure. Per Dr. Lam. Will start santyl on the wound in the patient. may consider a ct of the foot. However there does not seem to be any signs of inflammation on the xray. Will await the official xray report. (4) Aortic stenosis Current Visit: No Status: Acute Qualifiers: Cardiac valve disease etiology: nonrheumatic Qualified Code(s): I35.0 - Nonrheumatic aortic (valve) stenosis (5) DM2 (diabetes mellitus, type 2) Current Visit: No Status: Acute Plan: will continue home insulin . Qualifiers: Diabetes mellitus terminal computer operator insulin use: with terminal computer operator use Diabetes mellitus complication status: with kidney complications Chronic kidney disease stage: on chronic dialysis (6) ESRD (end stage renal disease) on dialysis Current Visit: No Status: Acute Plan: consult to Dr. Jackson for dialysis. 05/06 plans for dialysis for today (7) Hypothyroid Current Visit: No Status: Acute Plan: restart his home meds. Will check a tsh. Qualifiers: Hypothyroidism type: unspecified Qualified Code(s): E03.9 - Hypothyroidism, unspecified (8) Anemia due to end stage renal disease Current Visit: Yes Status: Acute Plan: transfuse 2 units during dialysis Discharge Plan: Home Plan to discharge in: Greater than 2 days - Code Status/Comfort Care Code Status Assessed: No Physician Review: Patient Assessed, Agree with Above Assessment and Plan Critical Care: No Time Spent Managing Pts Care (In Minutes): 20
[2020-05-06] MEDS: EPOETIN ALFA 10,000 UNIT/ML VIAL IV SCH (13:00)
[2020-05-06] MEDS: COLLAGENASE 30 GM OINTMENT TOP SCH (14:00)
--- NOTE | 2020-05-06 15:13 | PN ---
Date of Progress Note: 05/06/2020 Subjective: The patient was admitted with gangrenous toe, hyperkalemia, over volume. The patient received session of dialysis. Plan for dialysis today. Physical Examination: Vital Signs: Blood pressure 138/68, pulse of 101, afebrile. Chest: Faint rales bilateral base. Heart: S1, S2. Regular. Systolic murmur. Abdomen: Soft, nontender. Extremities: +1 edema, gangrenous toe, mid toe on the right and mid and second on the left. Neurologic: Alert. No focality. Laboratory Data: WBC 6.5, H and H 9.7/28.7. Sodium 137, potassium 4.2, bicarb 29, BUN 39, creatinine 6.1, calcium 8.9. Medications: Current medications the patient on include aspirin, vancomycin, Plavix, Epogen, carvedilol, atorvastatin, lisinopril, Lasix 40 daily, pantoprazole, levothyroxine. Assessment And Plan: 1. End-stage renal disease. We will dialyze the patient today. We will try to challenge the patient and we will arrange for dialysis Friday, Friday, Friday. 2. Hypertension, controlled, optimal. Continue current medication. 3. Iron deficiency anemia/chronic kidney disease anemia. Continue CHRIS. We will hold on starting on any IV iron given the ferritin above 1000. 4. Gangrenous toe seen by Cardiology and by Podiatry. No intervention for the time being. 5. Cellulitis. Continue current antibiotic. We will follow up. Time spent discussing with the patient, examining the patient, exam [id number], placing order, discussing with staff and other consulting include Primary 45 minutes. BERNABE Voice ID: [id number] Report ID: [id number] AMRIK
[2020-05-06] MEDS: ATORVASTATIN 80 MG TAB PO SCH (20:55)
[2020-05-07] MEDS: LEVOTHYROXINE SOD 0.05 MG TABLET PO SCH (06:00)
[2020-05-07] MEDS: PANTOPRAZOLE 40MG TABLET PO SCH (09:13)
[2020-05-07] MEDS: lisinopriL 5 MG TAB PO SCH (09:13)
[2020-05-07] MEDS: FUROSEMIDE 40 MG TABLET PO SCH (09:13)
[2020-05-07] MEDS: carvediloL 3.125 MG TAB PO SCH ×2 (09:13→17:40)
[2020-05-07] MEDS: ASPIRIN 81 MG CHEWABLE TABLET PO SCH (09:13)
[2020-05-07] MEDS: GABAPENTIN 300 MG CAP PO SCH (09:13)
[2020-05-07] MEDS: CLOPIDOGREL 75 MG TABLET PO SCH (09:13)
[2020-05-07] MEDS: COLLAGENASE 30 GM OINTMENT TOP SCH (09:15)
--- NOTE | 2020-05-07 09:53 | P.PN ---
Subjective Date of Service: 05/07/20 Primary Care Provider: Mak Chief Complaint: Chf exacerbation ESRD Subjective: No new changes (pain not well managed) Review of Systems 10-point ROS is otherwise unremarkable Musculoskeletal: Foot Pain Physical Examination - Vital Signs Temperature: 96.6 F Blood Pressure: 147/65 Pulse: 107 Respirations: 19 Pulse Ox (%): 95 - Physical Exam General: Alert, In no apparent distress HEENT: Atraumatic, PERRLA, EOMI Neck: Supple, JVD not distended Respiratory: Clear to auscultation bilaterally, Normal air movement Cardiovascular: Regular rate/rhythm, Normal S1 S2 Gastrointestinal: Normal bowel sounds, No tenderness Musculoskeletal: No tenderness Integumentary: No rashes Neurological: Normal speech, Normal tone, Normal affect Lymphatics: No axilla or inguinal lymphadenopathy - Studies Microbiology Data (last 24 hrs): 05/03/20 21:48 Wound - Right Foot Gram Stain - Final 05/03/20 21:48 Wound - Right Foot Culture & Sensitivity - Final Pseudomonas Aeruginosa Klebsiella Oxytoca 05/03/20 21:48 Wound - Left Foot Gram Stain - Final 05/03/20 21:48 Wound - Left Foot Culture & Sensitivity - Final Pseudomonas Aeruginosa Morganella Morganii Assessment & Plan - Problems (Diagnosis) (1) Diabetic foot Current Visit: Yes Status: Acute Plan: Patient is having a lot of pain. Will order a ct scan and consult Dr. Dean. If necessary Dr. Lam will do an angiogram on Friday. Will have Dr. Jackson monitor his dialysis. Will continue vancomycin and await blood cultures. Will have to improve his pain management. Will switch him from morphine to dilaudid and titrate up as necessary. Will also restart his home hydrocodone. 05/07 Pain not well managed. Will increase his hydrocodone to 10/325mg po q4hrs. awaiting angiogram tomorrow iwth Dr. Mcmahon (2) CHF exacerbation Current Visit: Yes Status: Acute Plan: Will need to get the patient to dialysis. Will see how that improves his pedal edema. 05/05 Improved Qualifiers: Heart failure type: systolic Qualified Code(s): I50.23 - Acute on chronic systolic (congestive) heart failure (3) Peripheral vascular disease Current Visit: Yes Status: Acute Plan: He has mild impairment. Which is normal for a dm2 with ESRD. Will start him on santyl. He had good arterial blood flows after his TVAR procedure. Per Dr. Lam. Will start santyl on the wound in the patient. may consider a ct of the foot. However there does not seem to be any signs of inflammation on the xray. Will await the official xray report. (4) Aortic stenosis Current Visit: No Status: Acute Qualifiers: Cardiac valve disease etiology: nonrheumatic Qualified Code(s): I35.0 - Nonrheumatic aortic (valve) stenosis (5) DM2 (diabetes mellitus, type 2) Current Visit: No Status: Acute Plan: will continue home insulin . Qualifiers: Diabetes mellitus director long term care insulin use: with director long term care use Diabetes mellitus complication status: with kidney complications Chronic kidney disease stage: on chronic dialysis (6) ESRD (end stage renal disease) on dialysis Current Visit: No Status: Acute Plan: consult to Dr. Jackson for dialysis. 05/06 plans for dialysis for today (7) Hypothyroid Current Visit: No Status: Acute Plan: restart his home meds. Will check a tsh. Qualifiers: Hypothyroidism type: unspecified Qualified Code(s): E03.9 - Hypothyroidism, unspecified (8) Anemia due to end stage renal disease Current Visit: Yes Status: Acute Plan: transfuse 2 units during dialysis Discharge Plan: Home Plan to discharge in: Greater than 2 days - Code Status/Comfort Care Code Status Assessed: No Physician Review: Patient Assessed, Agree with Above Assessment and Plan Critical Care: No
[2020-05-07] MEDS: HYDROCODONE/APAP 10/325 TAB PO PRN ×2 (11:30→22:12)
[2020-05-07 21:08] LABS: Absolute Lymphocytes (CBC) 0.6 K/uL (0.7-4.9); Basophils % 0.7 % (0-1.3); Lymphocytes % 9.6 % (15.3-44.8); MPV 8.9 fL (7.6-11.3); RBC Red Blood Cell Count 3.08 M/uL (4.33-5.43)
[2020-05-07] MEDS: ATORVASTATIN 80 MG TAB PO SCH (21:11)
[2020-05-07] MEDS: DICLOFENAC SOD D.R. 75 MG TAB PO SCH (21:11)
[2020-05-07 21:37] LABS: Albumin 2.7 g/dL (3.4-5.0); Bilirubin Total 0.7 mg/dL (0.2-1.0); Potassium 4.4 mmol/L (3.5-5.1); Protein, Total 7.2 g/dL (6.4-8.2)
--- NOTE | 2020-05-07 23:16 | PN ---
Date of Progress Note: 05/07/2020 Subjective: The patient was admitted with gangrenous toe, over volume secondary to missing dialysis. The patient is scheduled for angiogram tomorrow. Physical Examination: Vital Signs: The patient's blood pressure of 185/75, pulse of 88. Chest: Clear to auscultation. Heart: S1, S2. Regular. Systolic murmur. Abdomen: Soft, nontender. Extremities: +1 edema, more prominent on the left side. Gangrenous mid toe on both side with second toe on right side. Current Medications: The patient on include: 1. Vancomycin. 2. Lasix. 3. Lisinopril. 4. Atorvastatin. 5. Carvedilol. 6. Epogen. 7. Pantoprazole. 8. Levothyroxine. Assessment And Plan: 1. End-stage renal disease, over volume. We will arrange for dialysis tomorrow. We will challenge the patient. We will try to goal for 4 L and we will monitor. We will do the dialysis after the angiogram to clear up any contrast. 2. Hypertension. Increase hydralazine. Switch to nifedipine. We will follow up the patient after dialysis. 3. Anemia of chronic kidney disease, status post transfusion. Continue CHRIS. 4. Secondary hyperparathyroidism. Continue binder. 5. Gangrenous toe, peripheral vascular disease with diabetic foot. Continue current antibiotic. No osteomyelitis. Plan for angiogram tomorrow with Cardiology. We will dialyze after angio. 6. Coronary artery disease, aortic valve, status post repair. We will follow up with Cardiology. Time spent discussing with the patient, examining the patient, exam [id number], placing order, discussing with staff and other consulting include Primary 45 minutes. BERNABE Voice ID: [id number] Report ID: [id number] AMRIK
[2020-05-08] MEDS: carvediloL 3.125 MG TAB PO SCH ×2 (05:11→16:47)
[2020-05-08] MEDS: ASPIRIN 81 MG CHEWABLE TABLET PO SCH (05:11)
[2020-05-08] MEDS: LEVOTHYROXINE SOD 0.05 MG TABLET PO SCH (05:12)
[2020-05-08 06:17] LABS: Absolute Lymphocytes (CBC) 0.8 K/uL (0.7-4.9); Basophils % 1.2 % (0-1.3); Hematocrit 30.3 % (39.6-49.0); Lymphocytes % 12.8 % (15.3-44.8); MPV 9.1 fL (7.6-11.3); RBC Red Blood Cell Count 3.19 M/uL (4.33-5.43)
[2020-05-08 06:54] LABS: Albumin 2.7 g/dL (3.4-5.0); Bilirubin Total 0.8 mg/dL (0.2-1.0); Potassium 3.5 mmol/L (3.5-5.1); Protein, Total 7.1 g/dL (6.4-8.2)
[2020-05-08] MEDS: lisinopriL 5 MG TAB PO SCH (09:00)
[2020-05-08] MEDS: DICLOFENAC SOD D.R. 75 MG TAB PO SCH ×2 (09:00→20:15)
--- NOTE | 2020-05-08 09:48 | P.PN ---
Subjective Date of Service: 05/08/20 Primary Care Provider: Mak Chief Complaint: Chf exacerbation ESRD Subjective: No new changes Review of Systems 10-point ROS is otherwise unremarkable Physical Examination - Vital Signs Temperature: 97.5 F Blood Pressure: 133/60 Pulse: 84 Respirations: 17 Pulse Ox (%): 100 - Physical Exam General: Alert, In no apparent distress HEENT: Atraumatic, PERRLA, EOMI Neck: Supple, JVD not distended Respiratory: Clear to auscultation bilaterally, Normal air movement Cardiovascular: Regular rate/rhythm, Normal S1 S2, Other (mild click over the aortic area. ) Gastrointestinal: Normal bowel sounds, No tenderness Musculoskeletal: No tenderness Integumentary: No rashes Neurological: Normal speech, Normal tone, Normal affect Lymphatics: No axilla or inguinal lymphadenopathy - Studies Microbiology Data (last 24 hrs): 05/03/20 21:48 Wound - Right Foot Gram Stain - Final 05/03/20 21:48 Wound - Right Foot Culture & Sensitivity - Final Pseudomonas Aeruginosa Klebsiella Oxytoca Assessment & Plan - Problems (Diagnosis) (1) Diabetic foot Current Visit: Yes Status: Acute Plan: Patient is having a lot of pain. Will order a ct scan and consult Dr. Dean. If necessary Dr. Lam will do an angiogram on Friday. Will have Dr. Jackson monitor his dialysis. Will continue vancomycin and await blood cultures. Will have to improve his pain management. Will switch him from morphine to dilaudid and titrate up as necessary. Will also restart his home hydrocodone. 05/08 Patient states that the pain is controlled with hydrocodone 10/325mg. Will await the angiogram results. Will be able to manage his pain and refer him to the wound care center. If he has any blockages we can refer him to Dr. Shakeel Ocampo (2) CHF exacerbation Current Visit: Yes Status: Acute Plan: Will need to get the patient to dialysis. Will see how that improves his pedal edema. 05/05 Improved Qualifiers: Heart failure type: systolic Qualified Code(s): I50.23 - Acute on chronic systolic (congestive) heart failure (3) Peripheral vascular disease Current Visit: Yes Status: Acute Plan: He has mild impairment. Which is normal for a dm2 with ESRD. Will start him on santyl. He had good arterial blood flows after his TVAR procedure. Per Dr. Lam. Will start santyl on the wound in the patient. may consider a ct of the foot. However there does not seem to be any signs of inflammation on the xray. Will await the official xray report. (4) Aortic stenosis Current Visit: No Status: Acute Qualifiers: Cardiac valve disease etiology: nonrheumatic Qualified Code(s): I35.0 - Nonrheumatic aortic (valve) stenosis (5) DM2 (diabetes mellitus, type 2) Current Visit: No Status: Acute Plan: will continue home insulin . Qualifiers: Diabetes mellitus pot maker insulin use: with intermediate use Diabetes mellitus complication status: with kidney complications Chronic kidney disease stage: on chronic dialysis (6) ESRD (end stage renal disease) on dialysis Current Visit: No Status: Acute Plan: consult to Dr. Jackson for dialysis. 05/06 plans for dialysis for today (7) Hypothyroid Current Visit: No Status: Acute Plan: restart his home meds. Will check a tsh. Qualifiers: Hypothyroidism type: unspecified Qualified Code(s): E03.9 - Hypothyroidism, unspecified (8) Anemia due to end stage renal disease Current Visit: Yes Status: Acute Plan: transfuse 2 units during dialysis Discharge Plan: Home Plan to discharge in: Greater than 2 days - Code Status/Comfort Care Code Status Assessed: No Physician Review: Patient Assessed, Agree with Above Assessment and Plan Critical Care: No Time Spent Managing Pts Care (In Minutes): 25
[2020-05-08] MEDS: CLOPIDOGREL 75 MG TABLET PO SCH (10:28)
[2020-05-08] MEDS: GABAPENTIN 300 MG CAP PO SCH (10:28)
[2020-05-08] MEDS: PANTOPRAZOLE 40MG TABLET PO SCH (10:29)
[2020-05-08] MEDS: FUROSEMIDE 40 MG TABLET PO SCH (10:29)
[2020-05-08] MEDS: COLLAGENASE 30 GM OINTMENT TOP SCH (10:31)
--- NOTE | 2020-05-08 12:12 | PN ---
The patient had been admitted to Dr. Corado on 05/05/2020 and has been followed by Podiatry, Dr. Corado , Cardiology. The patient needs an abdominal angiogram with runoff before making decision regarding possible surgery on gangrenous toe. The patient has history of end-stage renal disease, on dialysis. He has a history of diastolic congestive heart failure. He is also status post TAVR, has had a his tory of CABG before, chronic anemia. We will plan for an abdominal angiogram with runoff on 05/09/19. The schedule was full for today from outpatient. We will see what that shows before making furt her decisions. ANA MARIA/IMER Voice ID: [id number] Report ID: [id number]
[2020-05-08] MEDS: ATORVASTATIN 80 MG TAB PO SCH (20:15)
--- NOTE | 2020-05-08 23:39 | PN ---
Date of Progress Note: 05/08/2020 Chief Complaint: End-stage renal disease, on dialysis. History Of Present Illness: The patient was scheduled to have angiogram today. Dialysis was arrange d after procedure. Angiogram was rescheduled for tomorrow. Electrolytes are stable. There is no fl uid overload. The patient will continue low-sodium diet. The patient has been dialyzed 3 times per week. Azotemia is well controlled. Review of Systems: Denies PND or orthopnea. Physical Examination: Lungs: Diminished breath sounds at bases. Heart: S1, S2. Abdomen: Soft, benign. Dressing in place. Impression And Plan: 1.End-stage renal disease. Dialysis rescheduled for tomorrow. Continue low-sodium diet with p.o. f luid restriction. Advance ultrafiltration to control volemia. 2.Hypertension. Hydralazine was increased and the patient was started on nifedipine. Continue to m onitor blood pressure. Adjust medication according to blood pressure level. 3.Anemia of chronic kidney disease, status post transfusion. Continue CHRIS. 4.Secondary hyperparathyroidism. Continue binders. Monitor phosphorus level. 5.Gangrenous toe, peripheral vascular disease. The patient is to have lower extremity angiogram and cardiology is rescheduling procedure. EB/MODL Voice ID: [id number] Report ID: [id number]
[2020-05-09] MEDS: LEVOTHYROXINE SOD 0.05 MG TABLET PO SCH (05:58)
[2020-05-09] MEDS: carvediloL 3.125 MG TAB PO SCH ×2 (05:58→17:00)
[2020-05-09] MEDS: ASPIRIN 81 MG CHEWABLE TABLET PO SCH (05:58)
[2020-05-09] MEDS: PANTOPRAZOLE 40MG TABLET PO SCH (07:13)
[2020-05-09] MEDS: lisinopriL 5 MG TAB PO SCH (08:29)
[2020-05-09] MEDS: DICLOFENAC SOD D.R. 75 MG TAB PO SCH (08:30)
[2020-05-09] MEDS: FUROSEMIDE 40 MG TABLET PO SCH (08:30)
[2020-05-09] MEDS: GABAPENTIN 300 MG CAP PO SCH (08:31)
[2020-05-09] MEDS: COLLAGENASE 30 GM OINTMENT TOP SCH (08:31)
[2020-05-09] MEDS: CLOPIDOGREL 75 MG TABLET PO SCH (08:31)
[2020-05-09] MEDS ORDERED: NA CHLORIDE 0.9% 500 ML ONE (09:09)
[2020-05-09] MEDS ORDERED: HEPA 1000U/500MLS 2,000 UNIT/1,000 ML BAG IV ONE (10:10)
[2020-05-09] MEDS ORDERED: MIDAZOLAM HCL 2 MG/2 ML INJ ONE ×2 (10:49→11:07)
[2020-05-09] MEDS ORDERED: FENTANYL CITR 100 MCG/2 ML ONE (10:49)
--- NOTE | 2020-05-09 12:38 | OP ---
Date of Procedure: 05/09/2020 Surgeon: Barry Mccann MD Industrial Relations Representative: Mr. Kenyon. Angio-Seal was used to close the right common femoral artery site. Reason For Procedure: Peripheral arterial disease and gangrenous foot, possibility of upcoming surge ry by Dr. Dean of abnormal arterial Doppler. Procedure In Detail: The patient was brought to the brine room laborer today, prepped and draped in the routin e sterile fashion. A 6-Divehi sheath was introduced in the right common femoral artery successfully. He was given Versed and fentanyl for sedation and back pain. A pigtail catheter was advanced above the renals. Abdominal angiogram with runoff was performed. He was found to have normal aorta, norm al renals, mild iliac disease, mild common femoral artery disease. He had severe peripheral arterial disease below the knees bilaterally in the anterior tibial, posterior tibial, and peroneal. A 6-[facility] sheath and catheters were used. There were no complications. Blood loss was 5 cc. Total consci ous sedation was 30 minutes. Postoperative Diagnoses: Peripheral arterial disease, severe [id number]. Plan: Plan is for medical therapy for now. Clear for surgery. NB/MODL Voice ID: [id number] Report ID: [id number]
[2020-05-09 14:04] VITALS: O2SAT 100
--- NOTE | 2020-05-09 14:22 | RAD REPORT ---
EXAM DESCRIPTION: CT - Lower Ext Angio - 05/09/2020 7:55 am CLINICAL HISTORY: Peripheral vascular disease TECHNIQUE: Computed tomography angiography the lower abdominal aorta, pelvis and legs obtained. MIPS reconstruction performed All CT scans are performed using dose optimization technique as appropriate and may include automated exposure control or mA/KV adjustment according to patient size. FINDINGS: Thrombus within the left common iliac artery results in a high-grade stenosis. Mild atherosclerosis involves the distal abdominal aorta, right common internal and external iliac, l eft external iliac, right and left common femoral, right and left deep femoral and bilateral poplitea l arteries. The posterior tibial, anterior tibial and peroneal arteries bilaterally demonstrate significantly dim inished blood flow. IMPRESSION: High-grade stenosis left common iliac artery Mild atherosclerosis involving the proximal and mid arteries of the lower extremities bilaterally Marked disease involving the distal arteries of the lower extremity bilaterally
--- NOTE | 2020-05-09 14:44 | P.DS ---
Admission Date: 05/05/20 Discharge Date: 05/09/20 Primary Care Provider: Mak Disposition: ROUTINE DISCHARGE Discharge Condition: GOOD Reason for Admission: Chf exacerbation ESRD - Problems (1) Diabetic foot Current Visit: Yes Status: Acute (2) CHF exacerbation Current Visit: Yes Status: Acute Qualifiers: Heart failure type: systolic Qualified Code(s): I50.23 - Acute on chronic systolic (congestive) heart failure (3) Peripheral vascular disease Current Visit: Yes Status: Acute (4) Aortic stenosis Current Visit: No Status: Acute Qualifiers: Cardiac valve disease etiology: nonrheumatic Qualified Code(s): I35.0 - Nonrheumatic aortic (valve) stenosis (5) DM2 (diabetes mellitus, type 2) Current Visit: No Status: Acute Qualifiers: Diabetes mellitus ferry terminal agent insulin use: with correction use Diabetes mellitus complication status: with kidney complications Chronic kidney disease stage: on chronic dialysis (6) ESRD (end stage renal disease) on dialysis Current Visit: No Status: Acute (7) Hypothyroid Current Visit: No Status: Acute Qualifiers: Hypothyroidism type: unspecified Qualified Code(s): E03.9 - Hypothyroidism, unspecified (8) Anemia due to end stage renal disease Current Visit: Yes Status: Acute Brief History of Present Illness: Patient of mine. With a history of chf, aortic stenosis and esrd on HD. He has recently had an aortic valve replacement with Dr. Lam. The patient had an EF of 15%. He has not been able to get dialysis due to the weather conditions. Have spoken to his Dr. Jackson. There is no water or power in the dialysis center. The patient has been having swelling of his feet and is having cracked and bleeding feet with a lot of pain. Since he has very poor cardiac function I decided to admit him for dialysis. It would have been up to chance to wait for the dialysis center to open and weather he has the cardiac reserves. His HB is 7 when he came to the ER. Have discussed this with Dr. Jackson. Will give the patient 2 units of blood during dialysis. the patient has some ulcerations on his right 2nd toe. The xray looks good, no wbc increase. He has some limitation of the blood flow on doppler. However no occlusions. Have discussed this with Dr. Lam. Hospital Course: Patient was admitted for dialys. However he had some gangrene on his toes. The patent had a negative ultrasound. We kept him to do an angiogram. CT showed no osteomyletis. He was seen by Dr. Dean and Dr. Lam. He had Dr. Graff manage his dialysis. Had a CT with run off today. Preliminary reports showed no obstruction. Will run his regular dialysis and have him follow up on Friday in the wound care center. Thank you for allowing us to take part in the patients care. Vital Signs/Physical Exam: Temp Pulse Resp BP Pulse Ox 97.3 F 73 16 115/67 99 05/09/20 13:57 05/09/20 13:57 05/09/20 13:57 05/09/20 13:57 05/09/20 08:00 General: Alert, In no apparent distress HEENT: Atraumatic, PERRLA, EOMI Neck: Supple, JVD not distended Respiratory: Clear to auscultation bilaterally, Normal air movement Cardiovascular: Regular rate/rhythm, Normal S1 S2 Gastrointestinal: Normal bowel sounds, No tenderness Musculoskeletal: No tenderness Integumentary: No rashes Neurological: Normal speech, Normal tone, Normal affect Lymphatics: No axilla or inguinal lymphadenopathy Laboratory Data at Discharge: WBC 6.40 K/uL (4.3-10.9) 05/08/20 06:04 Hgb Cancelled 05/08/20 09:09 Hct Cancelled 05/08/20 09:09 Plt Count 141 K/uL (152-406) L 05/08/20 06:04 PT 16.1 SECONDS (9.5-12.5) H 05/03/20 21:40 INR 1.40 05/03/20 21:40 APTT 32.8 SECONDS (24.3-36.9) 05/03/20 21:40 Sodium 137 mmol/L (136-145) 05/08/20 06:04 Potassium 3.5 mmol/L (3.5-5.1) 05/08/20 06:04 BUN 35 mg/dL (7-18) H 05/08/20 06:04 Creatinine 5.48 mg/dL (0.55-1.3) H* 05/08/20 06:04 Glucose 97 mg/dL (74-106) 05/08/20 06:04 Total Bilirubin 0.8 mg/dL (0.2-1.0) 05/08/20 06:04 AST 24 U/L (15-37) 05/08/20 06:04 ALT 18 U/L (12-78) 05/08/20 06:04 Alkaline Phosphatase 159 U/L (45-117) H 05/08/20 06:04 Home Medications: Aspirin [Santana Chewable] 81 mg PO DAILY 05/04/20 Atorvastatin Calcium [Lipitor] 80 mg PO BEDTIME 05/04/20 Carvedilol [Coreg] 3.125 mg PO BIDWM 05/04/20 Clopidogrel Bisulfate [Plavix] 75 mg PO DAILY 05/04/20 Furosemide [Lasix] 40 mg PO DAILY 05/04/20 Gabapentin 300 mg PO DAILY 05/04/20 Hydrocodone Bit/Acetaminophen [Hydrocodon-Acetaminoph 7.5-325] 1 each PO Q6HP PRN 05/04/20 Levothyroxine [Synthroid] 50 mcg PO [id number] 05/04/20 Pantoprazole [Protonix Tab] 40 mg PO DAILY 05/04/20 lisinopriL [Prinivil] 5 mg PO DAILY 05/04/20 Collagenase [Santyl Ointment] 15 gm TP DAILY #600 tube 05/09/20 Hydrocodone Bit/Acetaminophen [Hydrocodon-Acetaminophn 10-325] 1 each PO Q6HP PRN #90 tablet 05/09/20 New Medications: Hydrocodone Bit/Acetaminophen [Hydrocodon-Acetaminophn 10-325] 1 each PO Q6HP PRN #90 tablet PRN Reason: Pain Scale 5-7 (Moderate) Collagenase [Santyl Ointment] 15 gm TP DAILY #600 tube Diet: Renal Activity: Ad makenzie Followup: Franklin Corado MD [Primary Care Provider] - 05/15/20 (in the wound care center) Physician Review: Patient Assessed, Agree with Above Assessment and Plan Time spent managing pt's care (in minutes): 50
[2020-05-09] MEDS: EPOETIN ALFA 10,000 UNIT/ML VIAL IV SCH (15:12)
[2020-05-09 16:47] VITALS: BP 100/55; TEMP 97.8
--- NOTE | 2020-05-10 02:21 | PN ---
Date of Progress Note: 05/09/2020 Subjective: The patient was admitted with over volume, cellulitis, PAD. The patient is status post angioplasty today. Found to have severe peripheral arterial disease below the knee bilaterally in the anterior tibial, posterior tibial and peroneal. The patient tolerated the procedure. Physical Examination: Vital Signs: When I saw the patient, blood pressure 100/55, pulse of 80, afebrile. Chest: Clear to auscultation. Heart: S1, S2. Regular. Systolic murmur. Abdomen: Soft. Nontender. Extremities: Plus edema. Gangrenous on the mid toe and second toe mid toe bilateral, second toe on the left. Neurologic: Alert. No focality. Laboratory Data: WBC 6.4, H and H 9.8/30.1. Sodium 137, potassium 3.5, bicarb 20, BUN 35, creatinine 5.4, calcium 8.7. Current Medications: The patient on include, 1. Vanc. 2. Lasix. 3. Lisinopril. 4. Atorvastatin. 5. Carvedilol. 6. Pantoprazole. 7. Levothyroxine. 8. Epogen. Assessment And Plan: 1. End-stage renal disease. Patient exposed to contrast. We will do another session of dialysis today to clear of the contrast. 2. Hypertension, currently low blood pressure. Hold all the blood pressure medications. 3. Anemia of chronic kidney disease. Continue CHRIS. 4. Diabetic foot gangrenous with peripheral artery disease. Continue current antibiotic. We will follow up with Podiatry. 5. Diabetes as by primary. 6. Aortic stenosis status post aortic repair. We will follow up with Cardiology. Time spent discussing with the patient, examining the patient, exam [id number], placing order, discussing with staff and other consulting include Primary 45 minutes. BERNABE Voice ID: [id number] Report ID: [id number] AMRIK
[2020-05-10] MEDS ORDERED: COLLAGENASE 30 GM OINTMENT TOP SCH (09:00)
== END 2020-05-09 18:36 | disposition home or self-care (01) | DRG 291 ==
LOC: ER 19:25 → ERHOLD 23:35 → INTOOBSV 23:35 → 2ND 05-04 13:50 → OBSVTOIN 05-05 11:30
PROVIDERS: ADMIT Internal Medicine; ATTEND Internal Medicine
PROC: 30233N1 Transfusion of Nonautologous Red Blood Cells into Peripheral Vein, Percutaneous Approach (ICD-10-PCS; 2020-05-04)
PROC: 5A1D70Z Performance of Urinary Filtration, Intermittent, Less than 6 Hours Per Day (ICD-10-PCS; 2020-05-06)
PROC: B41F1ZZ Fluoroscopy of Right Lower Extremity Arteries using Low Osmolar Contrast (ICD-10-PCS; principal; 2020-05-09)
PROC: B4101ZZ Fluoroscopy of Abdominal Aorta using Low Osmolar Contrast (ICD-10-PCS; 2020-05-09)
DX: I13.2 Hypertensive heart and chronic kidney disease with heart failure and with stage 5 chronic kidney disease, or end stage renal disease (principal); I50.23 Acute on chronic systolic (congestive) heart failure; N18.6 End stage renal disease; E11.52 Type 2 diabetes mellitus with diabetic peripheral angiopathy with gangrene; I96 Gangrene, not elsewhere classified; L03.90 Cellulitis, unspecified; N25.81 Secondary hyperparathyroidism of renal origin; E11.22 Type 2 diabetes mellitus with diabetic chronic kidney disease; E11.40 Type 2 diabetes mellitus with diabetic neuropathy, unspecified; L97.519 Non-pressure chronic ulcer of other part of right foot with unspecified severity; E87.5 Hyperkalemia; D50.9 Iron deficiency anemia, unspecified; D63.1 Anemia in chronic kidney disease; I35.0 Nonrheumatic aortic (valve) stenosis; E03.9 Hypothyroidism, unspecified; E78.5 Hyperlipidemia, unspecified; I25.10 Atherosclerotic heart disease of native coronary artery without angina pectoris; E66.9 Obesity, unspecified; Z68.25 Body mass index [BMI] 25.0-25.9, adult; Z79.82 Long term (current) use of aspirin; Z79.890 Hormone replacement therapy; Z79.02 Long term (current) use of antithrombotics/antiplatelets; Z79.4 Long term (current) use of insulin; Z95.2 Presence of prosthetic heart valve; Z79.899 Other long term (current) drug therapy; Z87.891 Personal history of nicotine dependence; Z95.1 Presence of aortocoronary bypass graft; Z99.2 Dependence on renal dialysis; Z20.822 Contact with and (suspected) exposure to COVID-19
CPT/HCPCS: 36200; 36415; 73700; 73706; 75630; 80048; 80053; 82728; 82947; 83540; 83880; 84145; 84443; 84466; 85014; 85018; 85025; 85044; 85610; 85730; 86850; 86900; 86901; 87040; 87070; 87077; 87186; 87205; 90935; 93925; 96365; 96375; 99284; C1760; C1893; G0378; J1170; J1644; J2250; J2405; J3010; J3370; J3590; J7040; J7050; P9016; Q5105; Q9967; U0003

== ENCOUNTER 2020-05-30 12:18 | Inpatient (IN) | payer OTHER ==
[2020-05-30] MEDS: HYDROMORPHONE HCL 1 MG/ML INJ IV PRN (14:07)
[2020-05-30 14:15] VITALS: BMI 26.5
[2020-05-30] MEDS: CIPROFLOXACIN 400mg IV 400 MG/200 ML BAG IV SCH (15:14)
[2020-05-30] MEDS: CLINDAMYCIN INJ 900 MG in NA CHLORIDE 0.9% 50 ML IV SCH (16:49)
--- NOTE | 2020-05-30 16:58 | P.HP ---
Certification for Inpatient Patient admitted to: Inpatient With expected LOS: >2 Midnights Patient will require the following post-hospital care: Longterm Practitioner: I am a practitioner with admitting privileges, knowledge of patient current condition, hospital course, and medical plan of care. Services: Services provided to patient in accordance with Admission requirements found in Title 42 Section 412.3 of the Code of Federal Regulations Patient History Date of Service: 05/30/20 Primary Care Provider: Mak Reason for admission: wet gangrene of the right foot. History of Present Illness: Patient is an office patient of [employer]. He has a history of aortic stenosis, chf, esrd htn, dm2 with pvd. He recently had a aortic valve replacement with Dr Lam. During the freeze he had missed a few days of dialysis. Which lead to darkening of the 2nd and 3rd toes of the right foot. He was seen by Dr. Dean and Dr. Valiente IR He had a intervention a week ago with Dr. Valiente. He was seen this morning by Dr Dean. Who called me felt this was a wet ganrene of the foot. The patient has a very poor vascular bed. We discussed weather the patient has a transmetarsal. vs a bka. Unfortunately the patient has a very poor vascular bed and is not likely to heal a surgical wound. I have spoken with Dr. Lam who feels the patient is stable for a surgery. Allergies No Known Allergies Allergy (Verified 05/16/20 15:48) Home Medications: Aspirin [Santana Chewable] 81 mg PO DAILY 05/04/20 Atorvastatin Calcium [Lipitor] 80 mg PO BEDTIME 05/04/20 Carvedilol [Coreg] 3.125 mg PO BIDWM 05/04/20 Clopidogrel Bisulfate [Plavix] 75 mg PO DAILY 05/04/20 Furosemide [Lasix] 40 mg PO DAILY 05/04/20 Gabapentin 300 mg PO DAILY 05/04/20 Levothyroxine [Synthroid] 50 mcg PO [id number] 05/04/20 Pantoprazole [Protonix Tab] 40 mg PO DAILY 05/04/20 lisinopriL [Prinivil] 5 mg PO DAILY 05/04/20 Collagenase [Santyl Ointment] 15 gm TP DAILY #600 tube 05/09/20 Hydrocodone Bit/Acetaminophen [Hydrocodon-Acetaminophn 10-325] 1 tab PO Q6H PRN 03/02/21 - Past Medical/Surgical History Has patient received pneumonia vaccine in the past: Yes Diabetic: Yes -: Hypertension -: Renal dse -: NIDDM -: HD MWF -: CABG 2013 -: Vascular surgery 2018 -: TAVR Apr 2020 - Social History Smoking Status: Former smoker Alcohol use: No CD- Drugs: No Caffeine use: No Review of Systems 10-point ROS is otherwise unremarkable Musculoskeletal: Foot Pain (discoloration of the right foot. ) Physical Examination - Vital Signs Respirations: 17 Pulse Ox (%): 99 - Physical Exam General: Alert, In no apparent distress HEENT: Atraumatic, PERRLA, Mucous membr. moist/pink, EOMI, Sclerae nonicteric Neck: Supple, 2+ carotid pulse no bruit, No LAD, Without JVD or thyroid abnormality Respiratory: Clear to auscultation bilaterally, Normal air movement Cardiovascular: Regular rate/rhythm, Normal S1 S2 Gastrointestinal: Normal bowel sounds, No tenderness Musculoskeletal: No warmth, Tenderness, Other (dry black toes of the right 2-4th toes. With increasing discoloration of the surrounding foot. Marked worse than when I last saw the pateint not 2 weeks ago. ) Integumentary: No rashes Neurological: Normal gait, Normal speech, Normal strength at 5/5 x4 extr, Normal tone, Normal affect Lymphatics: No axilla or inguinal lymphadenopathy Assessment and Plan - Problems (Diagnosis) (1) Gangrene associated with diabetes mellitus Current Visit: Yes Status: Acute Plan: Will start the patient on clindamycin and cipro. Consult to Dr Masters. We have a ct angiogram from the last hospitlization not more than 2 weeks ago. I have discussed with the paitent that he is probably going to need a BKA. Dr Lam feels he is stable enough for this (2) ESRD (end stage renal disease) on dialysis Current Visit: No Status: Chronic Plan: He gets his dialysis TTS. Have discussed the patient with Dr. Ibarra. (3) Peripheral vascular disease Current Visit: No Status: Acute (4) Hypothyroid Current Visit: No Status: Acute Plan: Will continue his home dosage. Will check labs in the am Qualifiers: (5) Chronic CHF (congestive heart failure) Current Visit: Yes Status: Acute Plan: Patient had a 15% ef last month. However this was before the TVAR. Has not had any syncope or swelling. Qualifiers: Heart failure type: systolic Qualified Code(s): I50.22 - Chronic systolic (congestive) heart failure Discharge Plan: LTAC Plan to discharge in: Greater than 2 days - Advance Directives Does patient have a Living Will: No Does patient have a Durable POA for Healthcare: No - Code Status/Comfort Care Code Status Assessed: Yes Code Status: Full Code Physician Review: Patient Assessed, Agree with Above Assessment and Plan Critical Care: No Time Spent Managing Pts Care (In Minutes): 75
[2020-05-30] MEDS ORDERED: GLUCAGON 1 MG/VIAL IM PRN (17:14)
[2020-05-30] MEDS ORDERED: D50W 25 GM/50 ML SYRINGE IV PRN (17:14)
[2020-05-30 17:46] LABS: Protime INR 1.54
[2020-05-30] MEDS: FENTANYL 50 MCG/PATCH TD SCH (17:49)
[2020-05-30] MEDS ORDERED: PENICILLIN MU IV SCH (18:00)
[2020-05-30] MEDS ORDERED: NA CHLORIDE IV SCH (18:00)
[2020-05-30] MEDS: INSULIN -REGULAR HUMAN 50 UNIT/0.5 ML ML SQ SCH (20:20)
[2020-05-31] MEDS: CLINDAMYCIN INJ 900 MG in NA CHLORIDE 0.9% 50 ML IV SCH ×3 (00:47→17:10)
--- NOTE | 2020-05-31 03:02 | CON ---
Date of Consultation: 05/30/2020 Chief Complaint: End-stage renal disease. History Of Present Illness: The patient is admitted to the hospital for diabetic foot infection. Otoniel chano developed worsening of the diabetic ulcer infection with wet gangrene complication. The patien t has been dialyzed 3 times per week on Friday, Friday, and Friday. He has multiple medical probl ems including history of end-stage renal disease due to diabetic kidney disease, has been dialyzed on Friday, Friday, Friday 3 times per week, diabetes mellitus with peripheral vascular disease, diab etic foot infection, aortic stenosis, congestive heart failure with diastolic dysfunction. The patie nt previously underwent aortic valve replacement. Patient developed progressively worse ulcer in the lower extremity. Subsequently, he was treated with antibiotics and wound care as outpatient as well as he was hospitalized for the wound care and antibiotics. The patient has peripheral vascular dise ase. The patient is admitted for transmetatarsal amputation versus BKA. Primary team is consulting medical laboratory manager and cardiology team. Review of Systems: Constitutional: Denies PND, orthopnea. Eyes: Denies vision changes. Ears, Nose, Mouth and Throat: Denies sore throat or earache. Respiratory: Denies PND or orthopnea. Cardiovascular: Denies chest pain or palpitation. GI: Denies nausea or vomiting. : Denies dysuria or hematuria. Extremities: Has nonhealing lower extremity ulcer with discharge. All other systems reviewed and all are negative. Past Medical History: Hypertension, end-stage renal disease, diabetic kidney disease, coronary arter y disease, peripheral vascular disease, diabetic foot infection. Past Surgical History: TAVR April 2020, cardiovascular surgery, 2019. Family History: No kidney disease in the family. Social History: Denies tobacco, alcohol, or illicit drugs. Physical Examination: General: Patient is awake, alert, follows commands. Eyes: Anicteric sclerae. EOMI. Ears, Nose, Mouth, and Throat: Oral mucosa moist. No pallor. Neck: Supple. No bruits. Lungs: Diminished breath sounds at bases. Heart: S1, S2. No pericardial friction rub. Abdomen: Soft, benign, nontender. Extremities: Dressing in place. No oozing. No drainage. Impression And Plan: 1.Gangrene associated with diabetes mellitus, diabetic foot infection. Patient will continue antibi otics. Patient will start clindamycin and Cipro. Patient will be consulted by Dr. Mosqueda. Memo t previously had CT scan angiogram done for peripheral vascular disease. Further recommendation from Surgical team and Cardiology team. 2.End-stage renal dialysis. Dialysis is scheduled for tomorrow. Monitor electrolytes. Adjust dial ysis parameters. Continue ultrafiltration to prevent fluid overload. 3.Anemia in chronic kidney disease. Monitor hemoglobin level. Continue CHRIS. 4.Renal osteodystrophy. Continue renal diet and binders. 5.Diabetes mellitus. Continue insulin. EB/MODL Voice ID: [id number] Report ID: [id number]
[2020-05-31 06:55] LABS: Absolute Lymphocytes (CBC) 0.6 K/uL (0.7-4.9); Basophils % 0.3 % (0-1.3); Hematocrit 26.5 % (39.6-49.0); Lymphocytes % 5.2 % (15.3-44.8); MPV 9.2 fL (7.6-11.3); RBC Red Blood Cell Count 2.83 M/uL (4.33-5.43)
[2020-05-31] MEDS: INSULIN -REGULAR HUMAN 50 UNIT/0.5 ML ML SQ SCH ×4 (07:30→21:00)
[2020-05-31 08:31] LABS: Albumin 2.2 g/dL (3.4-5.0); Bilirubin Total 0.6 mg/dL (0.2-1.0); Potassium 4.3 mmol/L (3.5-5.1); Protein, Total 6.9 g/dL (6.4-8.2)
[2020-05-31 08:32] LABS: Thyroid Stimulating Hormone 15.2 uIU/mL (0.360-3.740)
[2020-05-31] MEDS ORDERED: NA CHLORIDE 0.9% 1,000 ML ONE (09:57)
[2020-05-31] MEDS ORDERED: NS 0.9% VIAL 10 ML ONE (10:26)
[2020-05-31] MEDS ORDERED: MIDAZOLAM HCL 2 MG/2 ML INJ ONE (10:27)
[2020-05-31] MEDS ORDERED: FENTANYL CITR 100 MCG/2 ML ONE (10:27)
[2020-05-31] MEDS ORDERED: LIDOCAINE 1% MPF 2 ML AMPULE ONE (10:27)
[2020-05-31] MEDS ORDERED: dexAMETHasone 10 MG/ML VIAL ONE (10:27)
--- NOTE | 2020-05-31 10:37 | P.PN ---
Subjective Date of Service: 05/31/20 Primary Care Provider: Mak Chief Complaint: wet gangrene of the right foot. Subjective: No new changes Review of Systems 10-point ROS is otherwise unremarkable Musculoskeletal: Foot Pain Physical Examination - Vital Signs Temperature: 97.3 F Blood Pressure: 111/58 Pulse: 84 Respirations: 16 Pulse Ox (%): 99 - Physical Exam General: Alert, In no apparent distress HEENT: Atraumatic, PERRLA, EOMI Neck: Supple, JVD not distended Respiratory: Clear to auscultation bilaterally, Normal air movement Cardiovascular: Regular rate/rhythm, Normal S1 S2 Gastrointestinal: Normal bowel sounds, No tenderness Musculoskeletal: No tenderness, Other (Gangrene of the right 2-3rd toes and the associated distal tarsals) Integumentary: No rashes Neurological: Normal speech, Normal tone, Normal affect Lymphatics: No axilla or inguinal lymphadenopathy - Studies Laboratory Data (last 24 hrs) 05/31/20 06:05: WBC 11.40 H, Hgb 8.4 L, Hct 26.5 L, Plt Count 143 L 05/31/20 06:05: Sodium 135 L, Potassium 4.3, BUN 37 H, Creatinine 5.11 H*, Glucose 109 H, Total Bilirubin 0.6, AST 19, ALT 8 L, Alkaline Phosphatase 152 H 05/31/20 05:00: Sodium Cancelled, Potassium Cancelled, BUN Cancelled, Creatinine Cancelled, Glucose Cancelled, Phosphorus Cancelled 05/30/20 17:28: PT 17.8 H, INR 1.54 Assessment & Plan - Problems (Diagnosis) (1) Gangrene associated with diabetes mellitus Current Visit: Yes Status: Acute Plan: Will start the patient on clindamycin and cipro. Consult to Dr Masters. We have a ct angiogram from the last hospitlization not more than 2 weeks ago. I have discussed with the paitent that he is probably going to need a BKA. Dr Lam feels he is stable enough for this 05/[address] Mosqueda. Plans for a BKA today Will consult PT and manager social responsibility to start working with the patient tomorrow for placement. (2) ESRD (end stage renal disease) on dialysis Current Visit: No Status: Chronic Plan: He gets his dialysis TTS. Have discussed the patient with Dr. Ibarra. (3) Peripheral vascular disease Current Visit: No Status: Acute Plan: Patient has had revasculization. However many of his blood vessels were not amenable to intervention. Because he has a very poor vascular bed the patient would most likely not heal very well with more conservative foot sparing procedures. Unfortunately the safest course is a bka. (4) Hypothyroid Current Visit: No Status: Acute Plan: Will continue his home dosage. Will check labs in the am Qualifiers: (5) Chronic CHF (congestive heart failure) Current Visit: Yes Status: Acute Plan: Patient had a 15% ef last month. However this was before the TVAR. Has not had any syncope or swelling. Qualifiers: Heart failure type: systolic Qualified Code(s): I50.22 - Chronic systolic (congestive) heart failure Discharge Plan: Psychiatry Plan to discharge in: Greater than 2 days - Code Status/Comfort Care Code Status Assessed: No Physician Review: Patient Assessed, Agree with Above Assessment and Plan Critical Care: No Time Spent Managing Pts Care (In Minutes): 25
[2020-05-31 10:40] LABS: Phosphorus 4.1 mg/dL (2.5-4.9)
[2020-05-31 10:54] LABS: Blood Morphology Comment NOT SEEN (NOT SEEN); Platelet Estimate ADEQ; White Blood Cell Scan OK (OK)
[2020-05-31] MEDS ORDERED: D50W 25 GM/50 ML VIAL IV PRN (11:00)
--- NOTE | 2020-05-31 11:16 | CON ---
Date of Consultation: 05/31/2020 Reason For Service: Gangrene of the right foot. History Of Present Illness: This is the case of a male with extensive medical history, seen over the last several months by Dr. Corado, trying to see if they can save his right foot from ischemic change s, but unfortunately it did not improve and developed with gangrene of the right foot. The patient w as admitted a few hours ago and a surgical consult was obtained for an amputation. The patient has b een trying to follow the best recommendation that the doctor can give him, but things incl uding renal disease, heart disease, recently even has aortic valve replacement for aortic stenosis. The patient has been seen by acute dialysis registered nurse multiple times. Allergies: NONE. Medications: Include Lasix, Lipitor, aspirin, Plavix. Social History: He used to smoke, not anymore. He does not drink alcohol. Family History: Noncontributory. Past Surgical History: Include CABG in 2013 once again, aortic valve replacement in April 2000. Past Medical History: Zdq-nzwsyir-nllsqtdow diabetes, renal failure. Review of Systems: See H and P. Otherwise, 10 points otherwise unremarkable. No chest pain. No shortness of breath at this moment. Physical Examination: HEENT: Pupils are equal and reactive, anicteric. Neck: Supple. Chest: Clear. Abdomen: Soft and depressible. No guarding or rebound. Extremities: The patient has wet gangrene of the right foot from mid metatarsal region distally. Do rsalis pedis pulses not present. Popliteal pulses weak. Neurologic: Alert and oriented x3. Laboratory Data: Blood work shows WBC count of 11 with hemoglobin of 8.4. Creatinine is 5.11. INR is 1.54. Assessment: A 75-year-old patient with gangrene of the right foot wet gangrene. We are afraid he ma y go into sepsis, so they asked for an emergent amputation. He understands all his risk, obviously r ecently has even heart surgery, anemic, renal disease. At the same time, we understand the emergency situation so the primary doctor approached me. We discussed the case and we will proceed with right below-knee amputation with benefits, alternatives, and risks including, but not limited to infection , bleeding, damage to adjacent structures, anesthesia complication, [place], and even . He also unde rstands this may not relieve any symptoms. He might need more than one surgical intervention. He ma y have developed a nonhealing wound and may even need a right above-knee amputation. Formal studies of the leg on both sides should be done, so we can a little bit better predict his healing process. At this moment, it is an emergency. We cannot proceed with that, but we will proceed with the amputa tion. CHAZ/IMER Voice ID: [id number] Report ID: [id number]
[2020-05-31] MEDS ORDERED: propofoL 200 MG/20 ML VIAL IV ONE (11:17)
[2020-05-31] MEDS ORDERED: KETAMINE HCL 500 MG/5 ML VIAL ONE (11:17)
[2020-05-31] MEDS ORDERED: NA CHLORIDE 0.9% 500 ML ONE (11:33)
--- NOTE | 2020-05-31 11:46 | P.BOP ---
Preoperative diagnosis: Right foot gangrene Postoperative diagnosis: same Primary procedure: Right BKA Estimated blood loss: <10cc Specimen: foot Findings: as above Anesthesia: MAC Complications: None Drain(s): ROSALIO drain Transferred to: Recovery Room Condition: Good
--- NOTE | 2020-05-31 12:38 | OP ---
Date of Procedure: 05/31/2020 Surgeon: Brown Mosqueda MD Preoperative Diagnosis: Right foot gangrene. Postoperative Diagnoses: 1.Right foot gangrene. 2.Peripheral vascular disease, heart disease, kidney disease. Primary Procedure: Right below-knee amputation. Estimated Blood Loss: Less than 10 mL. Specimen: Foot. Finding: As above. Anesthesia: Nerve block plus MAC. Drains: ROSALIO #10. Indications: This is the case of a male, who comes to us with right foot wet gangrene, booked for ergent right below-knee amputation with benefits, alternatives, and risks including, but not limited to infection, bleeding, damage to adjacent structures, anesthesia complication, flap failure, [place], and even . He also understands this may not relieve his symptoms. He might need more than one festus gical intervention. He understood, signed a consent. Description Of Procedure: The patient was brought to the operating room, placed in supine position. Anesthesia was done without complication. A time-out was called. Right foot was prepped and draped in usual sterile fashion. Anterior and posterior skin incisions were outlined with the use of karyn ng pen. Incision anteriorly was made about 12 cm below the tibial tuberosity and extended medially a nd lateral along the edge of the gastrocnemius muscle. The skin incision was then extended distally in either side and then about a 13 cm. That created a posterior flap. The skin and subcutaneous tis naldo were carefully incised including the fascia. Veins were ligated. The fascia and the muscle were then divided with electrocautery at the same level of the anterior skin incision. The muscle of the anterior lateral compartments were carefully exposed, divided, and tibial vessels were ligated with 0 silk. Interosseous membrane was incised. Tibial periosteum was incised circumferentially with sandra ctrocautery. Using a periosteal elevator we proceeded to strip the tibia about 2 cm proximal. The t ibia was then transected with a Gigli saw with the anterior bevel. The fibula was then exposed, diss ected circumferentially and transected with a bone cutter. The amputation was then completed with th e help of Bovie cauterizer. We transected soleus muscle and the gastrocnemius muscle. Sharp bony ed ges were then filed. The fascia of the anterior and posterior flaps were approximated after placing a ROSALIO drain in between them and securing that with 3-0 nylon. The flaps were secured with Vicryl. Th e skin was then approximated with the help of a doe. ROSALIO connected to bulb suction. Sponge count s and instrument counts were correct. Hemostasis was obtained before closure. Profuse irrigation wa s obtained before closure. The patient covered was with sterile dressings on his way to Recovery in stable condition. CHAZ/IMER Voice ID: [id number] Report ID: [id number]
[2020-05-31] MEDS: CIPROFLOXACIN 400mg IV 400 MG/200 ML BAG IV SCH (14:30)
[2020-05-31] MEDS: HYDROMORPHONE HCL 1 MG/ML INJ IV PRN (18:21)
[2020-05-31] MEDS ORDERED: EPOETIN ALFA 10,000 UNIT/ML VIAL IV SCH (22:00)
[2020-06-01] MEDS: CLINDAMYCIN INJ 900 MG in NA CHLORIDE 0.9% 50 ML IV SCH ×3 (00:11→17:00)
--- NOTE | 2020-06-01 02:20 | PN ---
Date of Progress Note: 05/31/2020 Subjective: The patient was admitted with diabetic foot, failure to heal out. The patient was scheduled for below-knee amputation The patient tolerated the procedure. Physical Examination: Vital Signs: Blood pressure 110/64, pulse of 77, afebrile. Chest: Faint rales on the base. Heart: S1, S2 regular. Abdomen: Soft, nontender. Extremities: Right below-knee amputation . Neurologic: Alert and oriented x3. Laboratory Data: WBC 11.4, H and H 8.4/26.5. Sodium 135, potassium 4.3, bicarb 27, BUN 37, creatinine 5, calcium 8.7, phosphorus 4.1. Current Medications: The patient on include, 1. Ciprofloxacin. 2. Clindamycin. 3. Heparin. 4. Fentanyl. 5. Levothyroxine. Assessment And Plan: 1. End-stage renal disease. We will continue the patient on dialysis. The patient is scheduled for dialysis today as his schedule Friday, Friday, Friday. 2. Hypertension, controlled, optimal. Keep holding all blood pressure medication. Try to utilize the blood pressure for more ultrafiltration. 3. Gangrenous foot status post below-knee amputation. Follow up with Surgery. 4. Foot infection on the left. I am going to go ahead and get x-ray to evaluate if there is any residual. 5. Anemia of chronic kidney disease. Resume CHRIS. time spent examined the patient face to face s discussed with the patient placed order discussing the case with other deboning team leader including nurses , discussing with other specialist include a hospitalist 45 min BERNABE Voice ID: [id number] Report ID: [id number] AMRIK
[2020-06-01] MEDS: LEVOTHYROXINE SOD 0.075 MG TAB PO SCH (05:07)
[2020-06-01 06:33] LABS: Albumin 2.3 g/dL (3.4-5.0); Phosphorus 5.3 mg/dL (2.5-4.9)
[2020-06-01 06:36] LABS: ALT/SGPT 7 U/L (12-78); AST/SGOT 19 U/L (15-37); Albumin 2.3 g/dL (3.4-5.0); BUN Blood Urea Nitrogen 25 mg/dL (7-18); Bicarbonate 28 mmol/L (21-32); Bilirubin Total 0.8 mg/dL (0.2-1.0); Glucose Level 176 mg/dL (74-106); Sodium Level 138 mmol/L (136-145)
[2020-06-01] MEDS: INSULIN -REGULAR HUMAN 50 UNIT/0.5 ML ML SQ SCH ×4 (07:30→20:30)
[2020-06-01 10:53] LABS: Absolute Lymphocytes (CBC) 0.3 K/uL (0.7-4.9); Basophils % 0.1 % (0-1.3); Lymphocytes % 5.5 % (15.3-44.8); RBC Red Blood Cell Count 2.68 M/uL (4.33-5.43)
--- NOTE | 2020-06-01 10:53 | P.PN ---
Subjective Date of Service: 06/01/20 Primary Care Provider: Mak Chief Complaint: wet gangrene of the right foot. Subjective: No new changes Review of Systems 10-point ROS is otherwise unremarkable Musculoskeletal: Leg Pain (mild inadvertent twitching of the leg) Physical Examination - Vital Signs Temperature: 97.4 F Blood Pressure: 126/58 Pulse: 97 Respirations: 17 Pulse Ox (%): 100 - Physical Exam General: Alert, In no apparent distress HEENT: Atraumatic, PERRLA, EOMI Neck: Supple, JVD not distended Respiratory: Clear to auscultation bilaterally, Normal air movement Cardiovascular: Regular rate/rhythm, Normal S1 S2 Gastrointestinal: Normal bowel sounds, No tenderness Musculoskeletal: No tenderness Integumentary: No rashes, Diabetic ulcer (left 2nd toe), Other (bka of the right foot) Neurological: Normal speech, Normal tone, Normal affect Lymphatics: No axilla or inguinal lymphadenopathy - Studies Laboratory Data (last 24 hrs) 06/01/20 06:02: Sodium 139, Potassium 4.0, BUN 25 H, Creatinine 3.48 H, Glucose 173 H, Phosphorus 5.3 H 06/01/20 06:02: Sodium 138, Potassium 4.0, BUN 25 H, Creatinine 3.45 H D, Gl ucose 176 H, Total Bilirubin 0.8, AST 19, ALT 7 L, Alkaline Phosphatase [employer]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 Consult to Dr Masters. We have a ct angiogram from the last hospitlization not more than 2 weeks ago. I have discussed with the paitent that he is probably going to need a BKA. Dr Lam feels he is stable enough for this 06/01 s/p amputation. Patient was greaving last night which is to be expected. The patient will be seen by Pt and social work case manager today to start discharge planning. (2) ESRD (end stage renal disease) on dialysis Current Visit: No Status: Chronic Plan: He gets his dialysis TTS. Have discussed the patient with Dr. Ibarra. (3) Peripheral vascular disease Current Visit: No Status: Acute Plan: Patient has had revasculization. However many of his blood vessels were not amenable to intervention. Because he has a very poor vascular bed the patient would most likely not heal very well with more conservative foot sparing procedures. Unfortunately the safest course is a bka. (4) Hypothyroid Current Visit: No Status: Acute Plan: Will continue his home dosage. Will check labs in the am Qualifiers: (5) Chronic CHF (congestive heart failure) Current Visit: Yes Status: Acute Plan: Patient had a 15% ef last month. However this was before the TVAR. Has not had any syncope or swelling. Qualifiers: Heart failure type: systolic Qualified Code(s): I50.22 - Chronic systolic (congestive) heart failure Discharge Plan: Home Plan to discharge in: 24 Hours - Code Status/Comfort Care Code Status Assessed: No Physician Review: Patient Assessed, Agree with Above Assessment and Plan Critical Care: No Time Spent Managing Pts Care (In Minutes): 20
--- NOTE | 2020-06-01 12:57 | PN ---
Date of Progress Note: 05/31/2020 Subjective: Status post below-knee amputation. The patient is doing well. Objective: General: Very talkative, awake, alert. Chest: Clear. Extremities: Intact surgical site. ROSALIO drain minimal. Plan: Continue medical service. Leave the dressings intact. Continue offloading left foot. Diabet es control. HM/MODL Voice ID: [id number] Report ID: [id number]
[2020-06-01 13:18] LABS: Potassium 4.2 mmol/L (3.5-5.1)
[2020-06-01] MEDS: CIPROFLOXACIN 400mg IV 400 MG/200 ML BAG IV SCH (14:00)
--- NOTE | 2020-06-01 22:49 | P.PN ---
Subjective Date of Service: 06/01/20 Primary Care Provider: Mak Chief Complaint: wet gangrene of the right foot. Subjective: No new changes Physical Examination - Vital Signs Temperature: 97.2 F Blood Pressure: 104/58 Pulse: 76 Respirations: 18 Pulse Ox (%): 100 - Physical Exam General: In no apparent distress HEENT: Atraumatic, Normocephalic Neck: Supple, Without JVD or thyroid abnormality Respiratory: Clear to auscultation bilaterally Cardiovascular: No murmurs Musculoskeletal: Other (+R BKA) - Studies Laboratory Data (last 24 hrs) 06/01/20 10:25: Sodium 139, Potassium 4.2, BUN 30 H, Creatinine 3.78 H, Glucose 195 H 06/01/20 10:25: WBC 6.00 D, Hgb 8.0 L, Hct 25.0 L, Plt Count 137 L 06/01/20 06:02: Sodium 139, Potassium 4.0, BUN 25 H, Creatinine 3.48 H, Glucose 173 H, Phosphorus 5.3 H 06/01/20 06:02: Sodium 138, Potassium 4.0, BUN 25 H, Creatinine 3.45 H D, Glucose 176 H, Total Bilirubin 0.8, AST 19, ALT 7 L, 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
[2020-06-02] MEDS: CLINDAMYCIN INJ 900 MG in NA CHLORIDE 0.9% 50 ML IV SCH (01:09)
[2020-06-02] MEDS: LEVOTHYROXINE SOD 0.075 MG TAB PO SCH (05:26)
[2020-06-02 06:55] LABS: ALT/SGPT 11 U/L (12-78); AST/SGOT 22 U/L (15-37); Albumin 2.2 g/dL (3.4-5.0); BUN Blood Urea Nitrogen 43 mg/dL (7-18); Bicarbonate 26 mmol/L (21-32); Bilirubin Total 0.6 mg/dL (0.2-1.0); Glucose Level 172 mg/dL (74-106); Potassium 4.2 mmol/L (3.5-5.1); Protein, Total 6.8 g/dL (6.4-8.2); Sodium Level 135 mmol/L (136-145)
[2020-06-02 07:21] LABS: Alkaline Phosphatase ND U/L (45-117)
[2020-06-02] MEDS: INSULIN -REGULAR HUMAN 50 UNIT/0.5 ML ML SQ SCH ×4 (07:30→20:19)
[2020-06-02] MEDS ORDERED: D50W 25 GM/50 ML SYRINGE IV PRN (08:19)
[2020-06-02] MEDS ORDERED: GLUCAGON 1 MG/VIAL IM PRN (08:19)
--- NOTE | 2020-06-02 08:26 | P.PN ---
Subjective Date of Service: 06/02/20 Primary Care Provider: Mak Chief Complaint: wet gangrene of the right foot. Subjective: No new changes Patient is sitting up. Having breakfast Review of Systems 10-point ROS is otherwise unremarkable Musculoskeletal: Other (right bka) Physical Examination - Vital Signs Temperature: 97.2 F Blood Pressure: 131/64 Pulse: 84 Respirations: 16 Pulse Ox (%): 97 - Physical Exam General: Alert, In no apparent distress HEENT: Atraumatic, PERRLA, EOMI Neck: Supple, JVD not distended Respiratory: Clear to auscultation bilaterally, Normal air movement Cardiovascular: Regular rate/rhythm, Normal S1 S2 Gastrointestinal: Normal bowel sounds, No tenderness Musculoskeletal: No tenderness Integumentary: No rashes Neurological: Normal speech, Normal tone, Normal affect Lymphatics: No axilla or inguinal lymphadenopathy - Studies Laboratory Data (last 24 hrs) 06/02/20 05:45: Sodium Cancelled, Potassium Cancelled, BUN Cancelled, Creatinine Cancelled, Glucose Cancelled, Phosphorus 5.7 H 06/02/20 05:45: Sodium 135 L, Potassium 4.2, BUN 43 H, Creatinine 4.63 H, Glucose 172 H, Total Bilirubin 0.6, AST 22, ALT 11 L, Alkaline Phosphatase ND 06/01/20 10:25: Sodium 139, Potassium 4.2, BUN 30 H, Creatinine 3.78 H, Glucose 195 H 06/01/20 10:25: WBC 6.00 D, Hgb 8.0 L, Hct 25.0 L, Plt Count 137 L Assessment & Plan - Problems (Diagnosis) (1) Gangrene associated with diabetes mellitus Current Visit: Yes Status: Acute Plan: Will start the patient on clindamycin and cipro. Consult to Dr Masters. We have a ct angiogram from the last hospitlization not more than 2 weeks ago. I have discussed with the paitent that he is probably going to need a BKA. Dr Lam feels he is stable enough for this 06/02 Will switch him to oral antibiotics. Will await placemen. Continue to work with PT. (2) ESRD (end stage renal disease) on dialysis Current Visit: No Status: Chronic Plan: He gets his dialysis TTS. Have discussed the patient with Dr. Ibarra. (3) Peripheral vascular disease Current Visit: No Status: Acute Plan: Patient has had revasculization. However many of his blood vessels were not amenable to intervention. Because he has a very poor vascular bed the patient would most likely not heal very well with more conservative foot sparing procedures. Unfortunately the safest course is a bka. (4) Hypothyroid Current Visit: No Status: Acute Plan: Will continue his home dosage. Will check labs in the am Qualifiers: (5) Chronic CHF (congestive heart failure) Current Visit: Yes Status: Acute Plan: Patient had a 15% ef last month. However this was before the TVAR. Has not had any syncope or swelling. Qualifiers: Heart failure type: systolic Qualified Code(s): I50.22 - Chronic systolic (congestive) heart failure Discharge Plan: LTAC Plan to discharge in: Unknown - Code Status/Comfort Care Code Status Assessed: No Physician Review: Patient Assessed, Agree with Above Assessment and Plan Critical Care: No Time Spent Managing Pts Care (In Minutes): 20
[2020-06-02] MEDS ORDERED: CIPROFLOXACIN HCL 500 MG TAB PO SCH (09:00)
--- NOTE | 2020-06-02 12:56 | P.PN ---
Subjective Date of Service: 06/03/20 Primary Care Provider: Mak Chief Complaint: wet gangrene of the right foot. Subjective: No new changes Physical Examination - Vital Signs Temperature: 97.2 F Blood Pressure: 134/65 Pulse: 83 Respirations: 18 Pulse Ox (%): 100 - Physical Exam General: In no apparent distress HEENT: Atraumatic, Normocephalic Neck: Supple Cardiovascular: No murmurs Musculoskeletal: No clubbing - Studies Laboratory Data (last 24 hrs) 06/02/20 05:45: Sodium Cancelled, Potassium Cancelled, BUN Cancelled, Creatinine Cancelled, Glucose Cancelled, Phosphorus 5.7 H 06/02/20 05:45: Sodium 135 L, Potassium 4.2, BUN 43 H, Creatinine 4.63 H, Glucose 172 H, Total Bilirubin 0.6, AST 22, ALT 11 L, Alkaline Phosphatase ND 06/01/20 10:25: Sodium 139, Potassium 4.2, BUN 30 H, Creatinine 3.78 H, Glucose 195 H Assessment And Plan - Plan # ESRD on HD HD today Cont HD MWF Renal diet # R foot gangrene S/p BKA Mngt per other services # Chronic heart failure Cont cardioprudent meds # Anemia Monitor H/H # CKD-MBD Monitor Ca & Phos Physician Review: Patient Assessed, Agree with Above Assessment and Plan
[2020-06-02] MEDS: FENTANYL 50 MCG/PATCH TD SCH (18:00)
[2020-06-02] MEDS: HYDROMORPHONE HCL 1 MG/ML INJ IV PRN (20:15)
[2020-06-02] MEDS: CIPROFLOXACIN HCL 500 MG TAB PO SCH (20:16)
[2020-06-02] MEDS: INSULIN GLARGINE 100 UNITS/ML SQ SCH (20:19)
[2020-06-03] MEDS: LEVOTHYROXINE SOD 0.075 MG TAB PO SCH (05:33)
[2020-06-03 07:10] LABS: Albumin 2.1 g/dL (3.4-5.0); Phosphorus 3.7 mg/dL (2.5-4.9); Potassium 3.8 mmol/L (3.5-5.1)
[2020-06-03] MEDS: INSULIN -REGULAR HUMAN 50 UNIT/0.5 ML ML SQ SCH ×4 (07:30→20:45)
[2020-06-03] MEDS: ONDANSETRON 4 MG/2 ML VIAL IV PRN ×2 (08:26→17:13)
--- NOTE | 2020-06-03 09:33 | P.PN ---
Subjective Date of Service: 06/04/20 Primary Care Provider: Mak Chief Complaint: wet gangrene of the right foot. Subjective: No new changes Physical Examination - Vital Signs Temperature: 97.2 F Blood Pressure: 134/65 Pulse: 83 Respirations: 18 Pulse Ox (%): 100 - Physical Exam General: In no apparent distress HEENT: Atraumatic, Normocephalic Neck: Supple, Without JVD or thyroid abnormality Respiratory: Clear to auscultation bilaterally Cardiovascular: No murmurs Gastrointestinal: Soft and benign, Non-distended Musculoskeletal: Other (+R BKA) - Studies Laboratory Data (last 24 hrs) 06/03/20 06:25: Sodium 140, Potassium 3.8, BUN 29 H, Creatinine 3.18 H D, Glucose 88, Phosphorus 3.7 Assessment And Plan - Plan # ESRD on HD HD received yesterday No acute indication for HD today Cont HD MWF Renal diet # R foot gangrene S/p BKA Mngt per other services # Chronic heart failure Cont cardioprudent meds # Anemia Monitor H/H # CKD-MBD Monitor Ca & Phos Physician Review: Patient Assessed, Agree with Above Assessment and Plan
--- NOTE | 2020-06-03 11:17 | P.PN ---
Subjective Date of Service: 06/03/20 Primary Care Provider: Mak Chief Complaint: wet gangrene of the right foot. Patient is sitting up. Having breakfast asking about going. Review of Systems 10-point ROS is otherwise unremarkable Musculoskeletal: Leg Pain Physical Examination - Vital Signs Temperature: 97.2 F Blood Pressure: 134/65 Pulse: 83 Respirations: 18 Pulse Ox (%): 100 - Physical Exam General: Alert, In no apparent distress HEENT: Atraumatic, PERRLA, EOMI Neck: Supple, JVD not distended Respiratory: Clear to auscultation bilaterally, Normal air movement Cardiovascular: Regular rate/rhythm, Normal S1 S2 Gastrointestinal: Normal bowel sounds, No tenderness Musculoskeletal: No tenderness Integumentary: No rashes Neurological: Normal speech, Normal tone, Normal affect Lymphatics: No axilla or inguinal lymphadenopathy - Studies Laboratory Data (last 24 hrs) 06/03/20 06:25: Sodium 140, Potassium 3.8, BUN 29 H, Creatinine 3.18 H D, Glucose 88, Phosphorus 3.7 Assessment & Plan - Problems (Diagnosis) (1) Gangrene associated with diabetes mellitus Current Visit: Yes Status: Acute Plan: Will start the patient on clindamycin and cipro. Consult to Dr Masters. We have a ct angiogram from the last hospitlization not more than 2 weeks ago. I have discussed with the paitent that he is probably going to need a BKA. Dr Lam feels he is stable enough for this 06/03 patient is having pain when he moves his leg (2) ESRD (end stage renal disease) on dialysis Current Visit: No Status: Chronic Plan: He gets his dialysis TTS. Have discussed the patient with Dr. Ibarra. (3) Peripheral vascular disease Current Visit: No Status: Acute Plan: Patient has had revasculization. However many of his blood vessels were not amenable to intervention. Because he has a very poor vascular bed the patient would most likely not heal very well with more conservative foot sparing procedures. Unfortunately the safest course is a bka. (4) Hypothyroid Current Visit: No Status: Acute Plan: Will continue his home dosage. Will check labs in the am Qualifiers: (5) Chronic CHF (congestive heart failure) Current Visit: Yes Status: Acute Plan: Patient had a 15% ef last month. However this was before the TVAR. Has not had any syncope or swelling. Qualifiers: Heart failure type: systolic Qualified Code(s): I50.22 - Chronic systolic (congestive) heart failure Discharge Plan: LTAC Plan to discharge in: Greater than 2 days - Code Status/Comfort Care Code Status Assessed: No Physician Review: Patient Assessed, Agree with Above Assessment and Plan Critical Care: No Time Spent Managing Pts Care (In Minutes): 25
[2020-06-03] MEDS: FENTANYL 75 MCG/PATCH TD SCH (12:03)
[2020-06-03] MEDS: CIPROFLOXACIN HCL 500 MG TAB PO SCH (17:06)
[2020-06-03] MEDS: INSULIN GLARGINE 100 UNITS/ML SQ SCH (20:44)
[2020-06-04] MEDS: LEVOTHYROXINE SOD 0.075 MG TAB PO SCH (05:35)
[2020-06-04] MEDS: INSULIN -REGULAR HUMAN 50 UNIT/0.5 ML ML SQ SCH ×4 (07:30→21:00)
[2020-06-04 07:53] LABS: Albumin 2.2 g/dL (3.4-5.0); Magnesium 2.3 mg/dL (1.8-2.4); Phosphorus 5.2 mg/dL (2.5-4.9); Potassium 3.8 mmol/L (3.5-5.1)
--- NOTE | 2020-06-04 09:04 | P.PN ---
Subjective Date of Service: 06/04/20 Primary Care Provider: Mak Chief Complaint: wet gangrene of the right foot. Subjective: No new changes Physical Examination - Vital Signs Temperature: 97.0 F Blood Pressure: 139/72 Pulse: 96 Respirations: 16 Pulse Ox (%): 100 - Physical Exam General: In no apparent distress HEENT: Atraumatic, Normocephalic Neck: Supple, Without JVD or thyroid abnormality Respiratory: Clear to auscultation bilaterally Cardiovascular: No murmurs Capillary refill: <2 Seconds Gastrointestinal: Soft and benign, Non-distended Musculoskeletal: Other (+R BKA) Neurological: Normal tone, Normal affect Lymphatics: No axilla or inguinal lymphadenopathy Urinary: Other - Studies Laboratory Data (last 24 hrs) 06/04/20 06:33: Sodium 139, Potassium 3.8, BUN 40 H, Creatinine 4.11 H, Glucose 79, Phosphorus 5.2 H, Magnesium 2.3 Assessment And Plan - Plan # ESRD on HD HD received 2d ago No acute indication for HD today Cont HD MWF Renal diet # R foot gangrene S/p BKA Mngt per other services OOB w/ PT/OT # Chronic heart failure Cont cardioprudent meds # Anemia Monitor H/H # CKD-MBD Monitor Ca & Phos Physician Review: Patient Assessed, Agree with Above Assessment and Plan
[2020-06-04] MEDS ORDERED: BISMUTH SUBSALICYL 262MG/15ML-240 ML BTL PO PRN (11:54)
[2020-06-04] MEDS: ONDANSETRON 4 MG/2 ML VIAL IV PRN (11:55)
--- NOTE | 2020-06-04 12:33 | P.PN ---
Subjective Date of Service: 06/04/20 Primary Care Provider: Mak Chief Complaint: wet gangrene of the right foot. Patient is sitting up. has been vomitting this morning. Review of Systems 10-point ROS is otherwise unremarkable Gastrointestinal: Nausea, Vomiting Physical Examination - Vital Signs Temperature: 97 F Blood Pressure: 146/81 Pulse: 98 Respirations: 16 Pulse Ox (%): 100 - Physical Exam General: Alert, In no apparent distress HEENT: Atraumatic, PERRLA, EOMI Neck: Supple, JVD not distended Respiratory: Clear to auscultation bilaterally, Normal air movement Cardiovascular: Regular rate/rhythm, Normal S1 S2 Gastrointestinal: Normal bowel sounds, No tenderness Musculoskeletal: No tenderness Integumentary: No rashes Neurological: Normal speech, Normal tone, Normal affect Lymphatics: No axilla or inguinal lymphadenopathy - Studies Laboratory Data (last 24 hrs) 06/04/20 06:33: Sodium 139, Potassium 3.8, BUN 40 H, Creatinine 4.11 H, Glucose 79, Phosphorus 5.2 H, Magnesium 2.3 Assessment & Plan - Problems (Diagnosis) (1) Gangrene associated with diabetes mellitus Current Visit: Yes Status: Acute Plan: Will start the patient on clindamycin and cipro. Consult to Dr Masters. We have a ct angiogram from the last hospitlization not more than 2 weeks ago. I have discussed with the paitent that he is probably going to need a BKA. Dr Lam feels he is stable enough for this 06/03 patient is having pain when he moves his leg (2) ESRD (end stage renal disease) on dialysis Current Visit: No Status: Chronic Plan: He gets his dialysis TTS. Have discussed the patient with Dr. Ibarra. (3) Peripheral vascular disease Current Visit: No Status: Acute Plan: Patient has had revasculization. However many of his blood vessels were not amenable to intervention. Because he has a very poor vascular bed the patient would most likely not heal very well with more conservative foot sparing procedures. Unfortunately the safest course is a bka. (4) Hypothyroid Current Visit: No Status: Acute Plan: Will continue his home dosage. Will check labs in the am Qualifiers: (5) Chronic CHF (congestive heart failure) Current Visit: Yes Status: Acute Plan: Patient had a 15% ef last month. However this was before the TVAR. Has not had any syncope or swelling. Qualifiers: Heart failure type: systolic Qualified Code(s): I50.22 - Chronic systolic (congestive) heart failure (6) Nausea & vomiting Current Visit: Yes Status: Acute Plan: will start him on bismuth and zofran for the vomiting Qualifiers: Vomiting type: unspecified Vomiting Intractability: non-intractable Qualified Code(s): R11.2 - Nausea with vomiting, unspecified Discharge Plan: LTAC Plan to discharge in: 24 Hours Physician Review: Patient Assessed, Agree with Above Assessment and Plan Critical Care: No Time Spent Managing Pts Care (In Minutes): 20
[2020-06-04] MEDS: HYDROMORPHONE HCL 1 MG/ML INJ IV PRN (17:37)
[2020-06-04] MEDS: CIPROFLOXACIN HCL 500 MG TAB PO SCH (17:38)
[2020-06-04] MEDS: INSULIN GLARGINE 100 UNITS/ML SQ SCH (21:41)
[2020-06-05] MEDS: ONDANSETRON 4 MG/2 ML VIAL IV PRN (05:13)
[2020-06-05 05:41] LABS: Absolute Lymphocytes (CBC) 0.9 K/uL (0.7-4.9); Basophils % 0.7 % (0-1.3); Hematocrit 25.9 % (39.6-49.0); Lymphocytes % 14.2 % (15.3-44.8); MPV 8.5 fL (7.6-11.3); RBC Red Blood Cell Count 2.86 M/uL (4.33-5.43)
[2020-06-05 05:59] LABS: Albumin 2.3 g/dL (3.4-5.0); Phosphorus 6.3 mg/dL (2.5-4.9)
[2020-06-05] MEDS: LEVOTHYROXINE SOD 0.075 MG TAB PO SCH (05:59)
[2020-06-05] MEDS: INSULIN -REGULAR HUMAN 50 UNIT/0.5 ML ML SQ SCH ×4 (07:30→21:00)
--- NOTE | 2020-06-05 10:35 | P.PN ---
Subjective Date of Service: 06/05/20 Primary Care Provider: Mak Chief Complaint: wet gangrene of the right foot. Patient is sitting up. had one episode of vomiting this morning. Review of Systems 10-point ROS is otherwise unremarkable Gastrointestinal: Vomiting Physical Examination - Vital Signs Temperature: 97.0 F Blood Pressure: 132/65 Pulse: 97 Respirations: 17 Pulse Ox (%): 98 - Physical Exam General: Alert, In no apparent distress HEENT: Atraumatic, PERRLA, EOMI Neck: Supple, JVD not distended Respiratory: Clear to auscultation bilaterally, Normal air movement Cardiovascular: Regular rate/rhythm, Normal S1 S2 Gastrointestinal: Normal bowel sounds, No tenderness Musculoskeletal: No tenderness Integumentary: No rashes Neurological: Normal speech, Normal tone, Normal affect Lymphatics: No axilla or inguinal lymphadenopathy - Studies Laboratory Data (last 24 hrs) 06/05/20 05:02: WBC 6.20, Hgb 8.8 L, Hct 25.9 L, Plt Count 149 L 06/05/20 05:02: Sodium 138, Potassium 4.0, BUN 45 H, Creatinine 4.87 H, Glucose 63 L, Phosphorus 6.3 H Assessment & Plan - Problems (Diagnosis) (1) Gangrene associated with diabetes mellitus Current Visit: Yes Status: Acute Plan: Will start the patient on clindamycin and cipro. Consult to Dr Masters. We have a ct angiogram from the last hospitlization not more than 2 weeks ago. I have discussed with the paitent that he is probably going to need a BKA. Dr Lam feels he is stable enough for this 06/05 awaiting placement for a PT center. (2) ESRD (end stage renal disease) on dialysis Current Visit: No Status: Chronic Plan: He gets his dialysis TTS. Have discussed the patient with Dr. Ibarra. (3) Peripheral vascular disease Current Visit: No Status: Acute Plan: Patient has had revasculization. However many of his blood vessels were not amenable to intervention. Because he has a very poor vascular bed the patient would most likely not heal very well with more conservative foot sparing procedures. Unfortunately the safest course is a bka. (4) Hypothyroid Current Visit: No Status: Acute Plan: Will continue his home dosage. Will check labs in the am Qualifiers: (5) Chronic CHF (congestive heart failure) Current Visit: Yes Status: Acute Plan: Patient had a 15% ef last month. However this was before the TVAR. Has not had any syncope or swelling. Qualifiers: Heart failure type: systolic Qualified Code(s): I50.22 - Chronic systolic (congestive) heart failure (6) Nausea & vomiting Current Visit: Yes Status: Acute Plan: will start him on bismuth and zofran for the vomiting Qualifiers: Vomiting type: unspecified Vomiting Intractability: non-intractable Qualified Code(s): R11.2 - Nausea with vomiting, unspecified Discharge Plan: LTAC Plan to discharge in: 24 Hours - Code Status/Comfort Care Code Status Assessed: No Physician Review: Patient Assessed, Agree with Above Assessment and Plan Critical Care: No Time Spent Managing Pts Care (In Minutes): 15
[2020-06-05] MEDS: LACTULOSE 20 GM/30 ML UCUP PO SCH ×2 (15:00→21:17)
[2020-06-05] MEDS ORDERED: AMIODARONE HCL 150 MG in D5W 100 ML IV STA (15:24)
[2020-06-05] MEDS ORDERED: AMIODARONE HCL 900 MG in Dextrose 5%-Water 482 ML IV SCH (16:00)
[2020-06-05] MEDS: CIPROFLOXACIN HCL 500 MG TAB PO SCH (16:55)
[2020-06-05] MEDS: EPOETIN ALFA 10,000 UNIT/ML VIAL IV SCH (17:30)
[2020-06-05] MEDS: EPOETIN ALFA-EPBX 4,000 UNIT/ML VIAL IV SCH (17:30)
--- NOTE | 2020-06-05 20:19 | PN ---
Date of Progress Note: 06/05/2020 Chief Complaint: Wet gangrene of the right foot. Subjective: The patient has end-stage renal disease and is undergoing dialysis 3 times per week abi oseguera this admission. Review of Systems: Denies fever or chills. Physical Examination: Lungs: Diminished breath sounds at bases. Heart: S1, S2. Abdomen: Soft, benign. Extremities: Dressing in place. Status post right BKA. Impression And Plan: 1.End-stage renal disease. Dialysis is scheduled for today with ultrafiltration. Volemia is well c ontrolled. Electrolytes are stable. 2.Right foot gangrene, status post below-knee amputation. Continue antibiotics. The patient is res uming PT, OT. 3.Chronic congestive heart failure with diastolic dysfunction. Continue medication for blood pressu re control. Monitor blood pressure closely. 4.Anemia in chronic kidney disease. Monitor H and H. Adjust CHRIS. 5.Renal osteodystrophy. Continue low-phosphorus diet. Adjust binders according to phosphorus level . EB/MODL Voice ID: [id number] Report ID: [id number]
[2020-06-05] MEDS: ENSURE PLANT-BASED PROTEIN CHOCOLATE 330 ML LIQUID PO SCH (21:00)
[2020-06-05] MEDS: INSULIN GLARGINE 100 UNITS/ML SQ SCH (21:00)
[2020-06-06] MEDS: LEVOTHYROXINE SOD 0.075 MG TAB PO SCH (05:30)
[2020-06-06] MEDS: INSULIN -REGULAR HUMAN 50 UNIT/0.5 ML ML SQ SCH ×4 (07:30→20:32)
[2020-06-06] MEDS: LACTULOSE 20 GM/30 ML UCUP PO SCH ×2 (08:57→20:33)
[2020-06-06] MEDS: FENTANYL 75 MCG/PATCH TD SCH (08:57)
[2020-06-06] MEDS: SEVELAMER CARBONATE 800 MG TABLET PO SCH ×3 (08:59→16:55)
[2020-06-06] MEDS: ENSURE PLANT-BASED PROTEIN CHOCOLATE 330 ML LIQUID PO SCH ×2 (08:59→20:33)
[2020-06-06] MEDS: ONDANSETRON 4 MG/2 ML VIAL IV PRN ×2 (10:06→14:05)
--- NOTE | 2020-06-06 13:31 | P.PN ---
Subjective Date of Service: 06/06/20 Primary Care Provider: Mak Chief Complaint: wet gangrene of the right foot. Patient is sitting up. no vomitting this morning He has not had a bowl movement yet Review of Systems 10-point ROS is otherwise unremarkable Gastrointestinal: Constipation Physical Examination - Vital Signs Temperature: 97.1 F Blood Pressure: 140/74 Pulse: 106 Respirations: 17 Pulse Ox (%): 100 - Physical Exam General: Alert, In no apparent distress HEENT: Atraumatic, PERRLA, EOMI Neck: Supple, JVD not distended Respiratory: Clear to auscultation bilaterally, Normal air movement Cardiovascular: Regular rate/rhythm, Normal S1 S2 Gastrointestinal: Normal bowel sounds, No tenderness Musculoskeletal: No tenderness Integumentary: No rashes Neurological: Normal speech, Normal tone, Normal affect Lymphatics: No axilla or inguinal lymphadenopathy Assessment & Plan - Problems (Diagnosis) (1) Gangrene associated with diabetes mellitus Current Visit: Yes Status: Acute Plan: Will start the patient on clindamycin and cipro. Consult to Dr Masters. We have a ct angiogram from the last hospitlization not more than 2 weeks ago. I have discussed with the paitent that he is probably going to need a BKA. Dr Lam feels he is stable enough for this 06/05 awaiting placement for a PT center. (2) ESRD (end stage renal disease) on dialysis Current Visit: No Status: Chronic Plan: He gets his dialysis TTS. Have discussed the patient with Dr. Ibarra. (3) Peripheral vascular disease Current Visit: No Status: Acute Plan: Patient has had revasculization. However many of his blood vessels were not amenable to intervention. Because he has a very poor vascular bed the patient would most likely not heal very well with more conservative foot sparing procedures. Unfortunately the safest course is a bka. (4) Hypothyroid Current Visit: No Status: Acute Plan: Will continue his home dosage. Will check labs in the am Qualifiers: (5) Chronic CHF (congestive heart failure) Current Visit: Yes Status: Acute Plan: Patient had a 15% ef last month. However this was before the TVAR. Has not had any syncope or swelling. Qualifiers: Heart failure type: systolic Qualified Code(s): I50.22 - Chronic systolic (congestive) heart failure (6) Nausea & vomiting Current Visit: Yes Status: Acute Plan: will start him on bismuth and zofran for the vomiting Qualifiers: Vomiting type: unspecified Vomiting Intractability: non-intractable Qual ified Code(s): R11.2 - Nausea with vomiting, unspecified Discharge Plan: LTAC Plan to discharge in: 24 Hours - Code Status/Comfort Care Code Status Assessed: No Physician Review: Patient Assessed, Agree with Above Assessment and Plan Critical Care: No Time Spent Managing Pts Care (In Minutes): 20
--- NOTE | 2020-06-06 13:43 | PN ---
Chief Complaint: Status post right below-knee amputation. Subjective: The patient doing well. No complaint. No fever. No nausea. No vomiting. Objective: General: Awake, alert, in no distress. Abdomen: Soft and depressible. Extremities: Right lower extremity surgical area is intact. Flaps are 100%. ROSALIO was removed putting just minimal amount of serosanguineous. Staple line looks intact, 100% flaps. Good capillary refil l. Plan: We will replace the dressings on him. We are going to remove the doe probably in a week f rom now. Avoid trauma. I am going to discuss the case with Dr. Corado, probably rehab evaluation for safe transfer. CHAZ/IMER Voice ID: [id number] Report ID: [id number]
--- NOTE | 2020-06-06 15:07 | PN ---
Date of Progress Note: 06/06/2020 Subjective: The patient was admitted with poor healing wound. The patient had a below-knee amputation on the right side. Physical Examination: Vital Signs: When I saw the patient; blood pressure 140/70, pulse of 100, afebrile. The patient received dialysis yesterday. Chest: Clear to auscultation. Heart: S1, S2. Regular rhythm. Abdomen: Soft, nontender. Extremities: Right below-knee amputation, left +1 edema. Neurologic: Alert. No focality. Vascular: Decreased pulse on the left, dorsal gangrenous on the mid and second toe. Laboratory Data: WBC 6.2, H and H 8.8/25.9. Sodium of 138, potassium 4, bicarb 28, BUN 45, creatinine 4.8, calcium 8.8, phosphorus 6.3. Albumin 2.3, corrected calcium is 9.8. Current Medications: The patient on include; 1. Heparin. 2. Epogen. 3. Vancomycin. 4. Fentanyl. 5. Renvela. 6. Zofran. 7. Levothyroxine. Assessment And Plan: 1. End-stage renal disease, over volume. I am going to continue the patient on dialysis. We will challenge the patient tomorrow to establish better volume control. 2. Secondary hyperparathyroidism with the presence of poor circulation. I am going to have more tight control on his binder. I am going to increase his Renvela. 3. Anemia of chronic kidney disease. Continue CHRIS. 4. Peripheral vascular disease, status post below-knee amputation, gangrenous on the left toe. We will follow up with Cardiology. Follow up with primary. Continue current Cipro. 5. Diabetes, as by primary. time spent examined the patient face to face s discussed with the patient placed order discussing the case with other steamer blocker including nurses , discussing with other specialist include a hospitalist 45 min YVONNE/IMER Voice ID: [id number] Report ID: [id number] MTDD
[2020-06-06] MEDS: CIPROFLOXACIN HCL 500 MG TAB PO SCH (16:54)
[2020-06-06] MEDS: INSULIN GLARGINE 100 UNITS/ML SQ SCH (20:32)
[2020-06-07] MEDS: LEVOTHYROXINE SOD 0.075 MG TAB PO SCH (05:42)
[2020-06-07 05:57] LABS: Albumin 2.3 g/dL (3.4-5.0); Potassium 4.4 mmol/L (3.5-5.1)
[2020-06-07] MEDS: INSULIN -REGULAR HUMAN 50 UNIT/0.5 ML ML SQ SCH ×2 (07:30→11:30)
[2020-06-07] MEDS: ONDANSETRON 4 MG/2 ML VIAL IV PRN (07:56)
[2020-06-07] MEDS: SEVELAMER CARBONATE 800 MG TABLET PO SCH ×2 (08:27→11:51)
[2020-06-07] MEDS: ENSURE PLANT-BASED PROTEIN CHOCOLATE 330 ML LIQUID PO SCH (08:28)
[2020-06-07] MEDS: LACTULOSE 20 GM/30 ML UCUP PO SCH (08:28)
--- NOTE | 2020-06-07 09:52 | P.PN ---
Subjective Date of Service: 06/07/20 Primary Care Provider: Mak Chief Complaint: wet gangrene of the right foot. Patient is in dialysis Review of Systems 10-point ROS is otherwise unremarkable Physical Examination - Vital Signs Temperature: 97.3 F Blood Pressure: 132/75 Pulse: 111 Respirations: 20 Pulse Ox (%): 99 - Physical Exam General: Alert, In no apparent distress HEENT: Atraumatic, PERRLA, EOMI Neck: Supple, JVD not distended Respiratory: Clear to auscultation bilaterally, Normal air movement Cardiovascular: Regular rate/rhythm, Normal S1 S2 Gastrointestinal: Normal bowel sounds, No tenderness Musculoskeletal: No tenderness Integumentary: No rashes Neurological: Normal speech, Normal tone, Normal affect Lymphatics: No axilla or inguinal lymphadenopathy - Studies Laboratory Data (last 24 hrs) 06/07/20 05:18: Sodium 141, Potassium 4.4, BUN 27 H, Creatinine 4.27 H, Glucose 78, Phosphorus 5.0 H Assessment & Plan - Problems (Diagnosis) (1) Gangrene associated with diabetes mellitus Current Visit: Yes Status: Acute Plan: Will start the patient on clindamycin and cipro. Consult to Dr Masters. We have a ct angiogram from the last hospitlization not more than 2 weeks ago. I have discussed with the paitent that he is probably going to need a BKA. Dr Lam feels he is stable enough for this 06/07 Pt was accepted to PT in [place]. His daughter would like him in . The patient's insurance is not in network with the PT centers (2) ESRD (end stage renal disease) on dialysis Current Visit: No Status: Chronic Plan: He gets his dialysis TTS. Have discussed the patient with Dr. Ibarra. (3) Peripheral vascular disease Current Visit: No Status: Acute Plan: Patient has had revasculization. However many of his blood vessels were not amenable to intervention. Because he has a very poor vascular bed the patient would most likely not heal very well with more conservative foot sparing procedures. Unfortunately the safest course is a bka. (4) Hypothyroid Current Visit: No Status: Acute Plan: Will continue his home dosage. Will check labs in the am Qualifiers: (5) Chronic CHF (congestive heart failure) Current Visit: Yes Status: Acute Plan: Patient had a 15% ef last month. However this was before the TVAR. Has not had any syncope or swelling. Qualifiers: Heart failure type: systolic Qualified Code(s): I50.22 - Chronic systolic (congestive) heart failure (6) Nausea & vomiting Current Visit: Yes Status: Acute Plan: will start him on bismuth and zofran for the vomiting Qualifiers: Vomiting type: unspecified Vomiting Intractability: non-intractable Qualified Code(s): R11.2 - Nausea with vomiting, unspecified Discharge Plan: Home Plan to discharge in: Greater than 2 days - Code Status/Comfort Care Code Status Assessed: No Physician Review: Patient Assessed, Agree with Above Assessment and Plan Critical Care: No Time Spent Managing Pts Care (In Minutes): 20
[2020-06-07 11:23] VITALS: O2SAT 99
[2020-06-07] MEDS: EPOETIN ALFA-EPBX 4,000 UNIT/ML VIAL IV SCH (11:30)
[2020-06-07] MEDS: EPOETIN ALFA 10,000 UNIT/ML VIAL IV SCH (11:30)
--- NOTE | 2020-06-07 12:21 | PN ---
Date of Progress Note: 06/07/2020 Subjective: The patient was admitted with gangrenous toes. The patient is status post right below-knee amputation. Physical Examination: Vital Signs: Blood pressure 132/75, pulse of 97, afebrile. Chest: Clear to auscultation. Heart: S1, S2. Systolic murmur. Abdomen: Soft, nontender. Extremity: Right below-knee amputation. Left second and middle toe gangrene. Neuro: Alert. No focality. Laboratory Data: WBC 6.2, H and H 8.8/25.9. Sodium 141, potassium 4.4, bicarb 30, BUN 27, creatinine 4.2, calcium 8.6. Current Medications: The patient on include; 1. Epogen. 2. Fentanyl. 3. Lactulose. 4. Renvela. Assessment And Plan: 1. End-stage renal disease. I am going to continue the patient on dialysis Friday, Friday, Friday. We will try to challenge the patient and keep holding all blood pressure medications to allow for more blood pressure for ultrafiltration. 2. Secondary hyperparathyroidism. We just increased his Renvela. We will follow up. 3. Peripheral vascular disease, status post below-knee amputation. We will add aspirin and Plavix. Continue current antibiotics. 4. Hypertension, controlled, optimal. 5. Anasarca secondary to renal failure/hypothyroidism. The patient was started on levothyroxine on the . I am going to increase it to 100 mcg and we will follow up the patient. 6. Diabetes, as by primary. time spent examined the patient face to face s discussed with the patient placed order discussing the case with other steam box hand including nurses , discussing with other specialist include a hospitalist 45 min BERNABE Voice ID: [id number] Report ID: [id number] AMRIK
--- NOTE | 2020-06-07 14:03 | P.DS ---
Admission Date: 05/30/20 Discharge Date: 06/07/20 Primary Care Provider: Mak Disposition: ROUTINE DISCHARGE Discharge Condition: GOOD Reason for Admission: wet gangrene of the right foot. - Problems (1) Gangrene associated with diabetes mellitus Current Visit: Yes Status: Acute (2) ESRD (end stage renal disease) on dialysis Current Visit: No Status: Chronic (3) Peripheral vascular disease Current Visit: No Status: Acute (4) Hypothyroid Current Visit: No Status: Acute Qualifiers: (5) Chronic CHF (congestive heart failure) Current Visit: Yes Status: Acute Qualifiers: Heart failure type: systolic Qualified Code(s): I50.22 - Chronic systolic (congestive) heart failure (6) Nausea & vomiting Current Visit: Yes Status: Acute Qualifiers: Vomiting type: unspecified Vomiting Intractability: non-intractable Qualified Code(s): R11.2 - Nausea with vomiting, unspecified Brief History of Present Illness: Patient is an office patient of [facility]. He has a history of aortic stenosis, chf, esrd htn, dm2 with pvd. He recently had a aortic valve replacement with Dr Lam. During the freeze he had missed a few days of dialysis. Which lead to darkening of the 2nd and 3rd toes of the right foot. He was seen by Dr. Dean and Dr. Valiente IR He had a intervention a week ago with Dr. Valiente. He was seen this morning by Dr Dean. Who called me felt this was a wet ganrene of the foot. The patient has a very poor vascular bed. We discussed weather the patient has a transmetarsal. vs a bka. Unfortunately the patient has a very poor vascular bed and is not likely to heal a surgical wound. I have spoken with Dr. Lam who feels the patient is stable for a surgery. Hospital Course: patient is came in for worsening gangrene of his right foot. He had a bka of the right leg with Dr Mosqueda Had some constipation after the surgery. He has a drain to his leg. The patient is doing well with pt. Will send him to [facility]. The patient is doing well Will discharge him to a physical therapy center. Vital Signs/Physical Exam: Temp Pulse Resp BP Pulse Ox 97.8 F 92 H 20 126/67 98 06/07/20 12:00 06/07/20 12:00 06/07/20 12:00 06/07/20 12:00 06/07/20 12:00 General: Alert, In no apparent distress HEENT: Atraumatic, PERRLA, EOMI Neck: Supple, JVD not distended Respiratory: Clear to auscultation bilaterally, Normal air movement Cardiovascular: Regular rate/rhythm, Normal S1 S2 Gastrointestinal: Normal bowel sounds, No tenderness Musculoskeletal: No tenderness Integumentary: No rashes Neurological: Normal speech, Normal tone, Normal affect Lymphatics: No axilla or inguinal lymphadenopathy Laboratory Data at Discharge: WBC 6.20 K/uL (4.3-10.9) 06/05/20 05:02 Hgb 8.8 g/dL (13.6-17.9) L 06/05/20 05:02 Hct 25.9 % (39.6-49.0) L 06/05/20 05:02 Plt Count 149 K/uL (152-406) L 06/05/20 05:02 PT 17.8 SECONDS (9.5-12.5) H 05/30/20 17:28 INR 1.54 05/30/20 17:28 Sodium 141 mmol/L (136-145) 06/07/20 05:18 Potassium 4.4 mmol/L (3.5-5.1) 06/07/20 05:18 BUN 27 mg/dL (7-18) H 06/07/20 05:18 Creatinine 4.27 mg/dL (0.55-1.3) H 06/07/20 05:18 Glucose 78 mg/dL (74-106) 06/07/20 05:18 Phosphorus 5.0 mg/dL (2.5-4.9) H 06/07/20 05:18 Magnesium 2.3 mg/dL (1.8-2.4) 06/04/20 06:33 Total Bilirubin 0.6 mg/dL (0.2-1.0) 06/02/20 05:45 AST 22 U/L (15-37) 06/02/20 05:45 ALT 11 U/L (12-78) L 06/02/20 05:45 Alkaline Phosphatase ND 06/02/20 05:45 Home Medications: Aspirin [Santana Chewable] 81 mg PO DAILY 05/04/20 Carvedilol [Coreg] 1.56 mg PO BIDWM 05/04/20 Clopidogrel Bisulfate [Plavix] 75 mg PO DAILY 05/04/20 Furosemide [Lasix] 40 mg PO DAILY 05/04/20 Gabapentin 300 mg PO DAILY 05/04/20 Levothyroxine [Synthroid] 50 mcg PO [id number] 05/04/20 Pantoprazole [Protonix Tab] 40 mg PO DAILY 05/04/20 lisinopriL [Prinivil] 2.5 mg PO DAILY 05/04/20 Collagenase [Santyl Ointment] 15 gm TP DAILY #600 tube 05/09/20 Hydrocodone Bit/Acetaminophen [Hydrocodon-Acetaminophn 10-325] 1 tab PO Q6H PRN 05/16/20 Metformin ER [Glucophage ER*] 500 mg PO BEDTIME 05/30/20 Metoclopramide HCl [Reglan] 5 mg PO BREAKFAST 05/30/20 Ondansetron [Zofran] 8 mg PO Q6H PRN 05/30/20 Simethicone [Gas-X] 125 mg PO TID PRN 05/30/20 Diet: Renal Activity: Fall precautions Followup: Brown Mosqueda MD [ACTIVE - CAN ADMIT] - 1-2 Weeks Franklin Corado MD [Family Provider] - 07/10/20 () Physician Review: Patient Assessed, Agree with Above Assessment and Plan Time spent managing pt's care (in minutes): 30
[2020-06-07 16:06] VITALS: BP 114/53; TEMP 97.1
[2020-06-08] MEDS ORDERED: LEVOTHYROXINE SOD 0.1 MG TAB PO SCH (06:30)
[2020-06-08] MEDS ORDERED: ASPIRIN EC 325 MG TABLET PO SCH (09:00)
[2020-06-08] MEDS ORDERED: CLOPIDOGREL 75 MG TABLET PO SCH (09:00)
== END 2020-06-07 16:25 | DRG 239 ==
LOC: 2ND 12:51
PROVIDERS: ADMIT Internal Medicine; ATTEND Internal Medicine
PROC: 5A1D70Z Performance of Urinary Filtration, Intermittent, Less than 6 Hours Per Day (ICD-10-PCS; 2020-05-31)
PROC: 0Y6H0Z3 Detachment at Right Lower Leg, Low, Open Approach (ICD-10-PCS; principal; 2020-05-31 09:45)
DX: E11.52 Type 2 diabetes mellitus with diabetic peripheral angiopathy with gangrene (principal); N18.6 End stage renal disease; I96 Gangrene, not elsewhere classified; I50.22 Chronic systolic (congestive) heart failure; I13.2 Hypertensive heart and chronic kidney disease with heart failure and with stage 5 chronic kidney disease, or end stage renal disease; N25.81 Secondary hyperparathyroidism of renal origin; E11.22 Type 2 diabetes mellitus with diabetic chronic kidney disease; I25.10 Atherosclerotic heart disease of native coronary artery without angina pectoris; N25.0 Renal osteodystrophy; D63.1 Anemia in chronic kidney disease; E03.9 Hypothyroidism, unspecified; Z95.2 Presence of prosthetic heart valve; Z79.82 Long term (current) use of aspirin; Z79.02 Long term (current) use of antithrombotics/antiplatelets; Z79.890 Hormone replacement therapy; Z79.899 Other long term (current) drug therapy; Z99.2 Dependence on renal dialysis; Z87.891 Personal history of nicotine dependence; Z79.84 Long term (current) use of oral hypoglycemic drugs; Z95.1 Presence of aortocoronary bypass graft; Z20.822 Contact with and (suspected) exposure to COVID-19
CPT/HCPCS: 36415; 80048; 80053; 80069; 82947; 83735; 84100; 84439; 84443; 85025; 85610; 88305; 88307; 88311; 90935; 97110; 97161; 97530; 97535; 97542; G0257; J0282; J0744; J1100; J1170; J1644; J1815; J2001; J2250; J2405; J2704; J3010; J7030; J7040; J7060; Q5105; Q5106; U0003

== ENCOUNTER 2020-07-02 15:18 | Inpatient (IN) | payer OTHER ==
--- OUTSIDE RECORDS SUMMARY | 2020-07-02 15:21 | XMS REPORT | Continuity of Care Document ---
:1945 Author Organization [facility] t Address [address] [place] [address] Care Team Providers Name Role Phone Ruelas DO Attending Clinician Tono VELÁSQUEZ, S Attending Clinician Annie KIM Attending Clinician Erin VELÁSQUEZ Attending Clinician Brynn VELÁSQUEZ, F Attending Clinician Nighat VELÁSQUEZ A Attending Clinician Claudio ACKERMAN Attending Clinician Erin VELÁSQUEZ Admitting Clinician Payers Payer Name Policy Type Policy Number Effective Date Expiration Date S ource Problems This patient has no known problems. Allergies, Adverse Reactions, Alerts Allergy Allergy Status Severity Reaction(s) Onset Inactive Treating Comm ents Source Name Type Date Date Clinician No Known DA Active [facility] Allergie 2- Clear s 00:00: Rocha 00 [facility] Medications This patient has no known medications. Procedures This patient has no known procedures. Encounters Start End Encounter Admission Attending Care Care Encounter Source Date/Time Date/Time Type Type Clinicians Facility Department ID 2020-03-29 Outpatient [facility]SE CAR [id number] MH 10:59:41 [facility] 2020-06-26 2020-06-26 Emergency Singer [facility] [id number] 09:15:00 11:28:00 Alberto Bonilla [id number] [place] 4.2.7.2.686 [place] [id number] 2020-04-20 2020-04-20 Emergency [facility] [id number] 02:44:00 05:48:00 Marky Bonilla [id number] [place] 4.2.7.2.686 [place] [id number] 2020-04-19 2020-04-19 Transition Kinjal Valencia [id number] 00:00:00 00:00:00 of Care Donna Valencia [id number] [place] 4.2.7.2.686 [id number] 2020-04-09 2020-04-18 Hospital Alberto Ruelas [id number] 12:29:00 19:45:00 Encounter Alfredo Khan [id number] [facility] 4.2.7.2.686 Alfredo Khan [id number] [facility] 090 Alfredo Khan 2020-04-14 2020-04-14 Telephone Carolyn Disla [id number] 00:00:00 00:00:00 Terrencelauren Long [id number] [facility] 4.2.7.2.686 [id number] 2020-03-16 2020-03-16 Outpatient [facility]SE CAR [id number] MH 09:06:00 09:06:[address] [facility] 2020-03-14 2020-03-14 Office Esvin [facility] [id number] 09:32:42 10:30:27 Visit ANA PAULA cornell [id number] [facility] 4.2.7.2.686 [place] AT [phone] Results Test Description Test Time Test Comments Results Result Comments Source GLUBED 2020-04-28 15:12:00 Test Item Value Reference Range Interpretation Comme nts GLUBED (test code = GLUBED) 140 MG/DL 70-110 H Performed by certified rail operator at [facility] CBC W/AUTO [id number] 08:41:00 Test Item Value Reference Range Interpretation Comments WHITE BLOOD CELL (test code = 5.0 x10 3/uL 4.5-11.0 N WBC) RED BLOOD CELL (test code = 2.20 x10 6/uL 4.00-5.60 L RBC) HEMOGLOBIN (test code = HGB) 7.2 g/dL 12.5-16.9 L HEMATOCRIT (test code = HCT) 23.4 % 37.5-50.7 L MEAN CELL VOLUME (test code = 106.4 fL 81.0-99.0 H MCV) MEAN CELL HGB (test code = MCH) 32.7 pg 27.0-33.0 N MEAN CELL HGB CONCETRATION 30.8 g/dL 33.0-37.0 L (test code = MCHC) RED CELL DISTRIBUTION WIDTH CV 15.4 % 11.5-14.5 H (test code = RDW) RED CELL DISTRIBUTION WIDTH SD 58.5 fL 37.0-54.0 H (test code = RDW-SD) PLATELET COUNT (test code = 84 x10 3/uL 150-400 L PLT) MEAN PLATELET VOLUME (test code 11.8 fL 7.0-9.0 H = MPV) NEUTROPHIL % (test code = NT%) 73.3 % 56.0-77.0 N IMMATURE GRANULOCYTE % (test 0.4 % 0.0-2.0 N code = IG%) LYMPHOCYTE % (test code = LY%) 13.5 % 14.0-32.0 L MONOCYTE % (test code = MO%) 11.6 % 4.8-9.0 H EOSINOPHIL % (test code = EO%) 1.0 % 0.3-3.7 N BASOPHIL % (test code = BA%) 0.2 % 0.0-2.0 N NUCLEATED RBC % (test code = 0.0 % 0-0 N NRBC%) NEUTROPHIL # (test code = NT#) 3.68 x10 3/uL 2.0-7.6 N IMMATURE GRANULOCYTE # (test 0.02 x10 3/uL 0.00-0.03 N code = IG#) LYMPHOCYTE # (test code = LY#) 0.68 x10 3/uL 1.0-3.8 L MONOCYTE # (test code = MO#) 0.58 x10 3/uL 0.1-0.8 N EOSINOPHIL # (test code = EO#) 0.05 x10 3/uL 0.0-0.2 N BASOPHIL # (test code = BA#) 0.01 x10 3/uL 0.0-0.2 N NUCLEATED RBC # (test code = 0.00 x10 3/uL 0.0-0.1 N NRBC#) MANUAL DIFF REQUIRED (test code NO = MDIFF) BASIC METABOLIC [id number] 08:08:00 Test Item Value Reference Range Interpretation Comments SODIUM (test code = NA) 133 mEq/L 134-147 L POTASSIUM (test code = 4.2 mEq/L 3.4-5.0 N K) CHLORIDE (test code = 96 mEq/L 100-108 L CL) CARBON DIOXIDE (test 29 mEq/l 21-33 N code = CO2) ANION GAP (test code = 12 0-20 N GAP) GLUCOSE (test code = 82 mg/dL 70-110 GLU) BLOOD UREA NITROGEN 33 mg/dL 7-18 H (test code = BUN) GLOMERULAR FILTRATION 10.8 70-80 L Units of measure = RATE (test code = GFR) ml/mi n/1.73 m2 CREATININE (test code = 5.2 mg/dL 0.6-1.3 H CREAT) CALCIUM (test code = 9.5 mg/dL 8.0-10.5 N CA) [id number] 08:08:00 Test Item Value Reference Range Interpretation Comments MAGNESIUM (test code = MAG) 2.83 mg/dL 1.80-2.40 H [id number] 06:49:00 Test Item Value Reference Range Interpretation Comments GLUBED (test code = 87 MG/DL 70-110 N Performe d by certified GLUBED) rail operator at [facility] [id number] 11:37:00 Test Item Value Reference Range Interpretation Comments MAGNESIUM (test code = MAG) 1.57 mg/dL 1.80-2.40 L CBC W/AUTO [id number] 04:35:00 Test Item Value Reference Range Interpretation Comments WHITE BLOOD CELL 5.3 x10 3/uL 4.5-11.0 N (test code = WBC) RED BLOOD CELL (test 2.19 x10 6/uL 4.00-5.60 L code = RBC) HEMOGLOBIN (test code 7.1 g/dL 12.5-16.9 L = HGB) HEMATOCRIT (test code 23.8 % 37.5-50.7 L = HCT) MEAN CELL VOLUME 108.7 fL 81.0-99.0 H (test code = MCV) MEAN CELL HGB (test 32.4 pg 27.0-33.0 N code = MCH) MEAN CELL HGB 29.8 g/dL 33.0-37.0 L CONCETRATION (test code = MCHC) RED CELL DISTRIBUTION 15.4 % 11.5-14.5 H WIDTH CV (test code = RDW) RED CELL DISTRIBUTION 59.3 fL 37.0-54.0 H WIDTH SD (test code = RDW-SD) PLATELET COUNT (test 82 x10 3/uL 150-400 L code = PLT) MEAN PLATELET VOLUME 11.1 fL 7.0-9.0 H (test code = MPV) NEUTROPHIL % (test 77.8 % 56.0-77.0 H code = NT%) IMMATURE GRANULOCYTE 0.2 % 0.0-2.0 N % (test code = IG%) LYMPHOCYTE % (test 8.9 % 14.0-32.0 L code = LY%) MONOCYTE % (test code 11.4 % 4.8-9.0 H = MO%) EOSINOPHIL % (test 1.3 % 0.3-3.7 N code = EO%) BASOPHIL % (test code 0.4 % 0.0-2.0 N = BA%) NUCLEATED RBC % (test 0.0 % 0-0 N code = NRBC%) NEUTROPHIL # (test 4.09 x10 3/uL 2.0-7.6 N code = NT#) IMMATURE GRANULOCYTE 0.01 x10 3/uL 0.00-0.03 N # (test code = IG#) LYMPHOCYTE # (test 0.47 x10 3/uL 1.0-3.8 L code = LY#) MONOCYTE # (test code 0.60 x10 3/uL 0.1-0.8 N = MO#) EOSINOPHIL # (test 0.07 x10 3/uL 0.0-0.2 N code = EO#) BASOPHIL # (test code 0.02 x10 3/uL 0.0-0.2 N = BA#) NUCLEATED RBC # (test 0.00 x10 3/uL 0.0-0.1 N code = NRBC#) MANUAL DIFF REQUIRED NO SLIDE R EVIEWED, (test code = MDIFF) CONSISTE NT WITH AUTO DIFF. PLT [id number] 04:35:00 Test Item Value Reference Range Interpretation Comments PLATELET ESTIMATE (test code 80-100 THOUSAND ADEQUATE = PLTEST) PLATELET MORPHOLOGY (test NORMAL code = PLTMORPH) CBC W/AUTO [id number] 04:34:00 Test Item Value Reference Range Interpretation Comments WHITE BLOOD CELL 5.3 x10 3/uL 4.5-11.0 N (test code = WBC) RED BLOOD CELL (test 2.19 x10 6/uL 4.00-5.60 L code = RBC) HEMOGLOBIN (test code 7.1 g/dL 12.5-16.9 L = HGB) HEMATOCRIT (test code 23.8 % 37.5-50.7 L = HCT) MEAN CELL VOLUME 108.7 fL 81.0-99.0 H (test code = MCV) MEAN CELL HGB (test 32.4 pg 27.0-33.0 N code = MCH) MEAN CELL HGB 29.8 g/dL 33.0-37.0 L CONCETRATION (test code = MCHC) RED CELL DISTRIBUTION 15.4 % 11.5-14.5 H WIDTH CV (test code = RDW) RED CELL DISTRIBUTION 59.3 fL 37.0-54.0 H WIDTH SD (test code = RDW-SD) PLATELET COUNT (test 82 x10 3/uL 150-400 L code = PLT) MEAN PLATELET VOLUME 11.1 fL 7.0-9.0 H (test code = MPV) NEUTROPHIL % (test 77.8 % 56.0-77.0 H code = NT%) IMMATURE GRANULOCYTE 0.2 % 0.0-2.0 N % (test code = IG%) LYMPHOCYTE % (test 8.9 % 14.0-32.0 L code = LY%) MONOCYTE % (test code 11.4 % 4.8-9.0 H = MO%) EOSINOPHIL % (test 1.3 % 0.3-3.7 N code = EO%) BASOPHIL % (test code 0.4 % 0.0-2.0 N = BA%) NUCLEATED RBC % (test 0.0 % 0-0 N code = NRBC%) NEUTROPHIL # (test 4.09 x10 3/uL 2.0-7.6 N code = NT#) IMMATURE GRANULOCYTE 0.01 x10 3/uL 0.00-0.03 N # (test code = IG#) LYMPHOCYTE # (test 0.47 x10 3/uL 1.0-3.8 L code = LY#) MONOCYTE # (test code 0.60 x10 3/uL 0.1-0.8 N = MO#) EOSINOPHIL # (test 0.07 x10 3/uL 0.0-0.2 N code = EO#) BASOPHIL # (test code 0.02 x10 3/uL 0.0-0.2 N = BA#) NUCLEATED RBC # (test 0.00 x10 3/uL 0.0-0.1 N code = NRBC#) MANUAL DIFF REQUIRED NO SLIDE R DARRELWED, (test code = MDIFF) CONSISTE NT WITH AUTO DIFF. PLT [id number] 04:34:00 Test Item Value Reference Range Interpretation Comments PLATELET ESTIMATE (test code = THOUSAND ADEQUATE PLTEST) CBC W/AUTO [id number] 04:34:00 Test Item Value Reference Range Interpretation Comments WHITE BLOOD CELL 5.3 x10 3/uL 4.5-11.0 N (test code = WBC) RED BLOOD CELL (test 2.19 x10 6/uL 4.00-5.60 L code = RBC) HEMOGLOBIN (test code 7.1 g/dL 12.5-16.9 L = HGB) HEMATOCRIT (test code 23.8 % 37.5-50.7 L = HCT) MEAN CELL VOLUME 108.7 fL 81.0-99.0 H (test code = MCV) MEAN CELL HGB (test 32.4 pg 27.0-33.0 N code = MCH) MEAN CELL HGB 29.8 g/dL 33.0-37.0 L CONCETRATION (test code = MCHC) RED CELL DISTRIBUTION 15.4 % 11.5-14.5 H WIDTH CV (test code = RDW) RED CELL DISTRIBUTION 59.3 fL 37.0-54.0 H WIDTH SD (test code = RDW-SD) PLATELET COUNT (test 82 x10 3/uL 150-400 L code = PLT) MEAN PLATELET VOLUME 11.1 fL 7.0-9.0 H (test code = MPV) NEUTROPHIL % (test 77.8 % 56.0-77.0 H code = NT%) IMMATURE GRANULOCYTE 0.2 % 0.0-2.0 N % (test code = IG%) LYMPHOCYTE % (test 8.9 % 14.0-32.0 L code = LY%) MONOCYTE % (test code 11.4 % 4.8-9.0 H = MO%) EOSINOPHIL % (test 1.3 % 0.3-3.7 N code = EO%) BASOPHIL % (test code 0.4 % 0.0-2.0 N = BA%) NUCLEATED RBC % (test 0.0 % 0-0 N code = NRBC%) NEUTROPHIL # (test 4.09 x10 3/uL 2.0-7.6 N code = NT#) IMMATURE GRANULOCYTE 0.01 x10 3/uL 0.00-0.03 N # (test code = IG#) LYMPHOCYTE # (test 0.47 x10 3/uL 1.0-3.8 L code = LY#) MONOCYTE # (test code 0.60 x10 3/uL 0.1-0.8 N = MO#) EOSINOPHIL # (test 0.07 x10 3/uL 0.0-0.2 N code = EO#) BASOPHIL # (test code 0.02 x10 3/uL 0.0-0.2 N = BA#) NUCLEATED RBC # (test 0.00 x10 3/uL 0.0-0.1 N code = NRBC#) MANUAL DIFF REQUIRED NO SLIDE R CELIA, (test code = MDIFF) CONSISTE NT WITH AUTO DIFF. PLT [id number] 04:34:00 Test Item Value Reference Range Interpretation Comments PLATELET ESTIMATE (test code = THOUSAND ADEQUATE PLTEST) BASIC METABOLIC [id number] 04:05:00 Test Item Value Reference Range Interpretation Comments SODIUM (test code = NA) 134 mEq/L 134-147 N POTASSIUM (test code = 4.2 mEq/L 3.4-5.0 N K) CHLORIDE (test code = 98 mEq/L 100-108 L CL) CARBON DIOXIDE (test 24 mEq/l 21-33 N code = CO2) ANION GAP (test code = 16 0-20 N GAP) GLUCOSE (test code = 140 mg/dL 70-110 H GLU) BLOOD UREA NITROGEN 27 mg/dL 7-18 H (test code = BUN) GLOMERULAR FILTRATION 17.1 70-80 L Units of measure = RATE (test code = GFR) ml/mi n/1.73 m2 CREATININE (test code = 3.5 mg/dL 0.6-1.3 H CREAT) CALCIUM (test code = 8.8 mg/dL 8.0-10.5 N CA) CBC W/AUTO [id number] 03:57:00 Test Item Value Reference Range Interpretation Comments WHITE BLOOD CELL (test code = 5.3 x10 3/uL 4.5-11.0 N WBC) RED BLOOD CELL (test code = 2.19 x10 6/uL 4.00-5.60 L RBC) HEMOGLOBIN (test code = HGB) 7.1 g/dL 12.5-16.9 L HEMATOCRIT (test code = HCT) 23.8 % 37.5-50.7 L MEAN CELL VOLUME (test code = 108.7 fL 81.0-99.0 H MCV) MEAN CELL HGB (test code = MCH) 32.4 pg 27.0-33.0 N MEAN CELL HGB CONCETRATION 29.8 g/dL 33.0-37.0 L (test code = MCHC) RED CELL DISTRIBUTION WIDTH CV 15.4 % 11.5-14.5 H (test code = RDW) RED CELL DISTRIBUTION WIDTH SD 59.3 fL 37.0-54.0 H (test code = RDW-SD) PLATELET COUNT (test code = 82 x10 3/uL 150-400 L PLT) MEAN PLATELET VOLUME (test code 11.1 fL 7.0-9.0 H = MPV) NEUTROPHIL % (test code = NT%) % 56.0-77.0 LYMPHOCYTE % (test code = LY%) % 14.0-32.0 NEUTROPHIL # (test code = NT#) x10 3/uL 2.0-7.6 LYMPHOCYTE # (test code = LY#) x10 3/uL 1.0-3.8 MANUAL DIFF REQUIRED (test code = MDIFF) [id number] 20:52:00 Test Item Value Reference Range Interpretation Comments GLUBED (test code = 107 MG/DL 70-110 N Performe d by certified GLUBED) rail operator at [facility] [id number] 15:17:00 Test Item Value Reference Range Interpretation Comments GLUBED (test code = 103 MG/DL 70-110 N Performe d by certified GLUBED) rail operator at [facility] [id number] 14:34:00 Test Item Value Reference Range Interpretation Comments GLUBED (test code = 129 MG/DL 70-110 H Performe d by certified GLUBED) rail operator at [facility] [id number] 13:50:00 Test Item Value Reference Range Interpretation Comments SODIUM (test code = NA/ABG) MEQ/L 134-147 [id number] 13:50:00 Test Item Value Reference Range Interpretation Comments POTASSIUM (test code = K/ABG) MEQ/L 3.4-5.0 CREATININE [id number] 13:50:00 Test Item Value Reference Range Interpretation Comments CREATININE ABG (test code = CREAABG) mg/dL 0.8-1.3 [id number] 13:50:00 Test Item Value Reference Range Interpretation Comments HEMOGLOBIN (test code = HGB/ABG) G/DL 12.5-16.9 [id number] 13:50:00 Test Item Value Reference Range Interpretation Comments HEMATOCRIT (test code = HCT/ABG) % 37.5-50.7 POC IONIZED [id number] 13:50:00 Test Item Value Reference Range Interpretation Comments POC IONIZED CALCIUM (test code = MMOL/L 1.12-1.32 POCCA) POC LACTIC [id number] 13:50:00 Test Item Value Reference Range Interpretation Comments POC LACTIC ACID (test code = POCLAC) mmol/l 0.9-1.7 POC [id number] 13:50:00 Test Item Value Reference Range Interpretation Comments POC GLUCOSE (test code = POCGLU) MG/DL 70-110 POC VENOUS BLOOD [id number] 13:50:00 Test Item Value Reference Range Interpretation Comments POC VENOUS BLOOD GAS PH (test 7.411 7.33-7.45 N code = POCPHV) POC VENOUS BLOOD GAS PCO2 (test 48.6 mmHg 43-47 H code = URKVIU0F) POC VENOUS BLOOD GAS PO2 (test 42.5 mmHG 10-50 N code = AAZYR6N) POC TCO2 VENOUS (test code = 32.4 RTXMFP5K) POC HCO3 VENOUS (test code = 30.9 MMOL/L 22-27 H [id number]) POC BASE EXCESS VENOUS (test code 5.6 MMOL/L -4.0-4.0 H = POCBEV) POC O2 SATURATION VENOUS (test 77.7 % 60-80 N code = SJAG2VW) [id number] 13:50:00 Test Item Value Reference Range Interpretation Comments CHLORIDE (test code = CL/VBG) MEQ/L [id number] 13:50:00 Test Item Value Reference Range Interpretation Comments SODIUM (test code = NA/ABG) 137 MEQ/L 134-147 N [id number] 13:50:00 Test Item Value Reference Range Interpretation Comments POTASSIUM (test code = K/ABG) MEQ/L 3.4-5.0 CREATININE [id number] 13:50:00 Test Item Value Reference Range Interpretation Comments CREATININE ABG (test code = CREAABG) mg/dL 0.8-1.3 [id number] 13:50:00 Test Item Value Reference Range Interpretation Comments HEMOGLOBIN (test code = HGB/ABG) G/DL 12.5-16.9 [id number] 13:50:00 Test Item Value Reference Range Interpretation Comments HEMATOCRIT (test code = HCT/ABG) % 37.5-50.7 POC IONIZED [id number] 13:50:00 Test Item Value Reference Range Interpretation Comments POC IONIZED CALCIUM (test code = MMOL/L 1.12-1.32 POCCA) POC LACTIC [id number] 13:50:00 Test Item Value Reference Range Interpretation Comments POC LACTIC ACID (test code = POCLAC) mmol/l 0.9-1.7 POC [id number] 13:50:00 Test Item Value Reference Range Interpretation Comments POC GLUCOSE (test code = POCGLU) MG/DL 70-110 POC VENOUS BLOOD [id number] 13:50:00 Test Item Value Reference Range Interpretation Comments POC VENOUS BLOOD GAS PH (test 7.411 7.33-7.45 N code = POCPHV) POC VENOUS BLOOD GAS PCO2 (test 48.6 mmHg 43-47 H code = ISIZXQ2N) POC VENOUS BLOOD GAS PO2 (test 42.5 mmHG 10-50 N code = DJLTE5C) POC TCO2 VENOUS (test code = 32.4 BPLALT1D) POC HCO3 VENOUS (test code = 30.9 MMOL/L 22-27 H RUFUYU4K) POC BASE EXCESS VENOUS (test code 5.6 MMOL/L -4.0-4.0 H = POCBEV) POC O2 SATURATION VENOUS (test 77.7 % 60-80 N code = YFFL3UC) [id number] 13:50:00 Test Item Value Reference Range Interpretation Comments CHLORIDE (test code = CL/VBG) MEQ/L [id number] 13:50:00 Test Item Value Reference Range Interpretation Comments SODIUM (test code = NA/ABG) 137 MEQ/L 134-147 N [id number] 13:50:00 Test Item Value Reference Range Interpretation Comments POTASSIUM (test code = K/ABG) 3.5 MEQ/L 3.4-5.0 N CREATININE [id number] 13:50:00 Test Item Value Reference Range Interpretation Comments CREATININE ABG (test code = CREAABG) mg/dL 0.8-1.3 [id number] 13:50:00 Test Item Value Reference Range Interpretation Comments HEMOGLOBIN (test code = HGB/ABG) G/DL 12.5-16.9 [id number] 13:50:00 Test Item Value Reference Range Interpretation Comments HEMATOCRIT (test code = HCT/ABG) % 37.5-50.7 POC IONIZED [id number] 13:50:00 Test Item Value Reference Range Interpretation Comments POC IONIZED CALCIUM (test code = MMOL/L 1.12-1.32 POCCA) POC LACTIC [id number] 13:50:00 Test Item Value Reference Range Interpretation Comments POC LACTIC ACID (test code = POCLAC) mmol/l 0.9-1.7 POC [id number] 13:50:00 Test Item Value Reference Range Interpretation Comments POC GLUCOSE (test code = POCGLU) MG/DL 70-110 POC VENOUS BLOOD [id number] 13:50:00 Test Item Value Reference Range Interpretation Comments POC VENOUS BLOOD GAS PH (test 7.411 7.33-7.45 N code = POCPHV) POC VENOUS BLOOD GAS PCO2 (test 48.6 mmHg 43-47 H code = JZNXPC4B) POC VENOUS BLOOD GAS PO2 (test 42.5 mmHG 10-50 N code = RRFKP3G) POC TCO2 VENOUS (test code = 32.4 TVDLYZ6U) POC HCO3 VENOUS (test code = 30.9 MMOL/L 22-27 H ZVDFAL1Z) POC BASE EXCESS VENOUS (test code 5.6 MMOL/L -4.0-4.0 H = POCBEV) POC O2 SATURATION VENOUS (test 77.7 % 60-80 N code = IEQN7UE) [id number] 13:50:00 Test Item Value Reference Range Interpretation Comments CHLORIDE (test code = CL/VBG) MEQ/L [id number] 13:50:00 Test Item Value Reference Range Interpretation Comments SODIUM (test code = NA/ABG) 137 MEQ/L 134-147 N [id number] 13:50:00 Test Item Value Reference Range Interpretation Comments POTASSIUM (test code = K/ABG) 3.5 MEQ/L 3.4-5.0 N CREATININE [id number] 13:50:00 Test Item Value Reference Range Interpretation Comments CREATININE ABG (test code = CREAABG) mg/dL 0.8-1.3 [id number] 13:50:00 Test Item Value Reference Range Interpretation Comments HEMOGLOBIN (test code = HGB/ABG) G/DL 12.5-16.9 [id number] 13:50:00 Test Item Value Reference Range Interpretation Comments HEMATOCRIT (test code = HCT/ABG) % 37.5-50.7 POC IONIZED [id number] 13:50:00 Test Item Value Reference Range Interpretation Comments POC IONIZED CALCIUM (test code = 1.18 MMOL/L 1.12-1.32 N POCCA) POC LACTIC [id number] 13:50:00 Test Item Value Reference Range Interpretation Comments POC LACTIC ACID (test code = POCLAC) mmol/l 0.9-1.7 POC [id number] 13:50:00 Test Item Value Reference Range Interpretation Comments POC GLUCOSE (test code = POCGLU) MG/DL 70-110 POC VENOUS BLOOD [id number] 13:50:00 Test Item Value Reference Range Interpretation Comments POC VENOUS BLOOD GAS PH (test 7.411 7.33-7.45 N code = POCPHV) POC VENOUS BLOOD GAS PCO2 (test 48.6 mmHg 43-47 H code = EQLZQW2A) POC VENOUS BLOOD GAS PO2 (test 42.5 mmHG 10-50 N code = GARXH9M) POC TCO2 VENOUS (test code = 32.4 PMMMFU8J) POC HCO3 VENOUS (test code = 30.9 MMOL/L 22-27 H EZVAIF5H) POC BASE EXCESS VENOUS (test code 5.6 MMOL/L -4.0-4.0 H = POCBEV) POC O2 SATURATION VENOUS (test 77.7 % 60-80 N code = HGPQ9FX) [id number] 13:50:00 Test Item Value Reference Range Interpretation Comments CHLORIDE (test code = CL/VBG) MEQ/L [id number] 13:50:00 Test Item Value Reference Range Interpretation Comments SODIUM (test code = NA/ABG) 137 MEQ/L 134-147 N [id number] 13:50:00 Test Item Value Reference Range Interpretation Comments POTASSIUM (test code = K/ABG) 3.5 MEQ/L 3.4-5.0 N CREATININE [id number] 13:50:00 Test Item Value Reference Range Interpretation Comments CREATININE ABG (test code = CREAABG) mg/dL 0.8-1.3 [id number] 13:50:00 Test Item Value Reference Range Interpretation Comments HEMOGLOBIN (test code = HGB/ABG) G/DL 12.5-16.9 [id number] 13:50:00 Test Item Value Reference Range Interpretation Comments HEMATOCRIT (test code = HCT/ABG) % 37.5-50.7 POC IONIZED [id number] 13:50:00 Test Item Value Reference Range Interpretation Comments POC IONIZED CALCIUM (test code = 1.18 MMOL/L 1.12-1.32 N POCCA) POC LACTIC [id number] 13:50:00 Test Item Value Reference Range Interpretation Comments POC LACTIC ACID (test code = POCLAC) mmol/l 0.9-1.7 POC [id number] 13:50:00 Test Item Value Reference Range Interpretation Comments POC GLUCOSE (test code = POCGLU) 101 MG/DL 70-110 N POC VENOUS BLOOD [id number] 13:50:00 Test Item Value Reference Range Interpretation Comments POC VENOUS BLOOD GAS PH (test 7.411 7.33-7.45 N code = POCPHV) POC VENOUS BLOOD GAS PCO2 (test 48.6 mmHg 43-47 H code = [id number]) POC VENOUS BLOOD GAS PO2 (test 42.5 mmHG 10-50 N code = CUHVV8Y) POC TCO2 VENOUS (test code = 32.4 [id number]) POC HCO3 VENOUS (test code = 30.9 MMOL/L 22-27 H [id number]) POC BASE EXCESS VENOUS (test code 5.6 MMOL/L -4.0-4.0 H = POCBEV) POC O2 SATURATION VENOUS (test 77.7 % 60-80 N code = [id number]) [id number] 13:50:00 Test Item Value Reference Range Interpretation Comments CHLORIDE (test code = CL/VBG) MEQ/L [id number] 13:50:00 Test Item Value Reference Range Interpretation Comments SODIUM (test code = NA/ABG) 137 MEQ/L 134-147 N [id number] 13:50:00 Test Item Value Reference Range Interpretation Comments POTASSIUM (test code = K/ABG) 3.5 MEQ/L 3.4-5.0 N CREATININE [id number] 13:50:00 Test Item Value Reference Range Interpretation Comments CREATININE ABG (test code = CREAABG) mg/dL 0.8-1.3 [id number] 13:50:00 Test Item Value Reference Range Interpretation Comments HEMOGLOBIN (test code = HGB/ABG) G/DL 12.5-16.9 [id number] 13:50:00 Test Item Value Reference Range Interpretation Comments HEMATOCRIT (test code = HCT/ABG) % 37.5-50.7 POC IONIZED [id number] 13:50:00 Test Item Value Reference Range Interpretation Comments POC IONIZED CALCIUM (test code = 1.18 MMOL/L 1.12-1.32 N POCCA) POC LACTIC [id number] 13:50:00 Test Item Value Reference Range Interpretation Comments POC LACTIC ACID (test code = 0.5 mmol/l 0.9-1.7 L POCLAC) POC [id number] 13:50:00 Test Item Value Reference Range Interpretation Comments POC GLUCOSE (test code = POCGLU) 101 MG/DL 70-110 N POC VENOUS BLOOD [id number] 13:50:00 Test Item Value Reference Range Interpretation Comments POC VENOUS BLOOD GAS PH (test 7.411 7.33-7.45 N code = POCPHV) POC VENOUS BLOOD GAS PCO2 (test 48.6 mmHg 43-47 H code = CUCKJL4Z) POC VENOUS BLOOD GAS PO2 (test 42.5 mmHG 10-50 N code = OCZRX6A) POC TCO2 VENOUS (test code = 32.4 LDZIOX0E) POC HCO3 VENOUS (test code = 30.9 MMOL/L 22-27 H [id number]) POC BASE EXCESS VENOUS (test code 5.6 MMOL/L -4.0-4.0 H = POCBEV) POC O2 SATURATION VENOUS (test 77.7 % 60-80 N code = [id number]) [id number] 13:50:00 Test Item Value Reference Range Interpretation Comments CHLORIDE (test code = CL/VBG) MEQ/L [id number] 13:50:00 Test Item Value Reference Range Interpretation Comments SODIUM (test code = NA/ABG) 137 MEQ/L 134-147 N [id number] 13:50:00 Test Item Value Reference Range Interpretation Comments POTASSIUM (test code = K/ABG) 3.5 MEQ/L 3.4-5.0 N CREATININE [id number] 13:50:00 Test Item Value Reference Range Interpretation Comments CREATININE ABG (test code = CREAABG) mg/dL 0.8-1.3 [id number] 13:50:00 Test Item Value Reference Range Interpretation Comments HEMOGLOBIN (test code = HGB/ABG) G/DL 12.5-16.9 [id number] 13:50:00 Test Item Value Reference Range Interpretation Comments HEMATOCRIT (test code = HCT/ABG) 23 % 37.5-50.7 L POC IONIZED [id number] 13:50:00 Test Item Value Reference Range Interpretation Comments POC IONIZED CALCIUM (test code = 1.18 MMOL/L 1.12-1.32 N POCCA) POC LACTIC [id number] 13:50:00 Test Item Value Reference Range Interpretation Comments POC LACTIC ACID (test code = 0.5 mmol/l 0.9-1.7 L POCLAC) POC [id number] 13:50:00 Test Item Value Reference Range Interpretation Comments POC GLUCOSE (test code = POCGLU) 101 MG/DL 70-110 N POC VENOUS BLOOD [id number] 13:50:00 Test Item Value Reference Range Interpretation Comments POC VENOUS BLOOD GAS PH (test 7.411 7.33-7.45 N code = POCPHV) POC VENOUS BLOOD GAS PCO2 (test 48.6 mmHg 43-47 H code = [id number]) POC VENOUS BLOOD GAS PO2 (test 42.5 mmHG 10-50 N code = MMOOO4Z) POC TCO2 VENOUS (test code = 32.4 YQTUBL0I) POC HCO3 VENOUS (test code = 30.9 MMOL/L 22-27 H XZEJBS0V) POC BASE EXCESS VENOUS (test code 5.6 MMOL/L -4.0-4.0 H = POCBEV) POC O2 SATURATION VENOUS (test 77.7 % 60-80 N code = YXLM8EN) [id number] 13:50:00 Test Item Value Reference Range Interpretation Comments CHLORIDE (test code = CL/VBG) MEQ/L [id number] 13:50:00 Test Item Value Reference Range Interpretation Comments SODIUM (test code = NA/ABG) 137 MEQ/L 134-147 N [id number] 13:50:00 Test Item Value Reference Range Interpretation Comments POTASSIUM (test code = K/ABG) 3.5 MEQ/L 3.4-5.0 N CREATININE [id number] 13:50:00 Test Item Value Reference Range Interpretation Comments CREATININE ABG (test code = CREAABG) mg/dL 0.8-1.3 [id number] 13:50:00 Test Item Value Reference Range Interpretation Comments HEMOGLOBIN (test code = HGB/ABG) 7.8 G/DL 12.5-16.9 L [id number] 13:50:00 Test Item Value Reference Range Interpretation Comments HEMATOCRIT (test code = HCT/ABG) 23 % 37.5-50.7 L POC IONIZED [id number] 13:50:00 Test Item Value Reference Range Interpretation Comments POC IONIZED CALCIUM (test code = 1.18 MMOL/L 1.12-1.32 N POCCA) POC LACTIC [id number] 13:50:00 Test Item Value Reference Range Interpretation Comments POC LACTIC ACID (test code = 0.5 mmol/l 0.9-1.7 L POCLAC) POC [id number] 13:50:00 Test Item Value Reference Range Interpretation Comments POC GLUCOSE (test code = POCGLU) 101 MG/DL 70-110 N POC VENOUS BLOOD [id number] 13:50:00 Test Item Value Reference Range Interpretation Comments POC VENOUS BLOOD GAS PH (test 7.411 7.33-7.45 N code = POCPHV) POC VENOUS BLOOD GAS PCO2 (test 48.6 mmHg 43-47 H code = SMBHWK4A) POC VENOUS BLOOD GAS PO2 (test 42.5 mmHG 10-50 N code = LFPUY0F) POC TCO2 VENOUS (test code = 32.4 MYNBDK2H) POC HCO3 VENOUS (test code = 30.9 MMOL/L 22-27 H COKAFH0F) POC BASE EXCESS VENOUS (test code 5.6 MMOL/L -4.0-4.0 H = POCBEV) POC O2 SATURATION VENOUS (test 77.7 % 60-80 N code = UBOA1GQ) [id number] 13:50:00 Test Item Value Reference Range Interpretation Comments CHLORIDE (test code = CL/VBG) MEQ/L [id number] 13:50:00 Test Item Value Reference Range Interpretation Comments SODIUM (test code = NA/ABG) 137 MEQ/L 134-147 N [id number] 13:50:00 Test Item Value Reference Range Interpretation Comments POTASSIUM (test code = K/ABG) 3.5 MEQ/L 3.4-5.0 N CREATININE [id number] 13:50:00 Test Item Value Reference Range Interpretation Comments CREATININE ABG (test code = CREAABG) mg/dL 0.8-1.3 [id number] 13:50:00 Test Item Value Reference Range Interpretation Comments HEMOGLOBIN (test code = HGB/ABG) 7.8 G/DL 12.5-16.9 L [id number] 13:50:00 Test Item Value Reference Range Interpretation Comments HEMATOCRIT (test code = HCT/ABG) 23 % 37.5-50.7 L POC IONIZED [id number] 13:50:00 Test Item Value Reference Range Interpretation Comments POC IONIZED CALCIUM (test code = 1.18 MMOL/L 1.12-1.32 N POCCA) POC LACTIC [id number] 13:50:00 Test Item Value Reference Range Interpretation Comments POC LACTIC ACID (test code = 0.5 mmol/l 0.9-1.7 L POCLAC) POC [id number] 13:50:00 Test Item Value Reference Range Interpretation Comments POC GLUCOSE (test code = POCGLU) 101 MG/DL 70-110 N POC VENOUS BLOOD [id number] 13:50:00 Test Item Value Reference Range Interpretation Comments POC VENOUS BLOOD GAS PH (test 7.411 7.33-7.45 N code = POCPHV) POC VENOUS BLOOD GAS PCO2 (test 48.6 mmHg 43-47 H code = BRGHVE9M) POC VENOUS BLOOD GAS PO2 (test 42.5 mmHG 10-50 N code = MYJSV6M) POC TCO2 VENOUS (test code = 32.4 NOWWKG7A) POC HCO3 VENOUS (test code = 30.9 MMOL/L 22-27 H KTLFKE0L) POC BASE EXCESS VENOUS (test code 5.6 MMOL/L -4.0-4.0 H = POCBEV) POC O2 SATURATION VENOUS (test 77.7 % 60-80 N code = QJNC1SB) [id number] 13:50:00 Test Item Value Reference Range Interpretation Comments CHLORIDE (test code = CL/VBG) 98 MEQ/L [id number] 13:50:00 Test Item Value Reference Range Interpretation Comments SODIUM (test code = NA/ABG) 137 MEQ/L 134-147 N [id number] 13:50:00 Test Item Value Reference Range Interpretation Comments POTASSIUM (test code = K/ABG) 3.5 MEQ/L 3.4-5.0 N CREATININE [id number] 13:50:00 Test Item Value Reference Range Interpretation Comments CREATININE ABG (test code = 2.5 mg/dL 0.8-1.3 H CREAABG) [id number] 13:50:00 Test Item Value Reference Range Interpretation Comments HEMOGLOBIN (test code = HGB/ABG) 7.8 G/DL 12.5-16.9 L [id number] 13:50:00 Test Item Value Reference Range Interpretation Comments HEMATOCRIT (test code = HCT/ABG) 23 % 37.5-50.7 L POC IONIZED [id number] 13:50:00 Test Item Value Reference Range Interpretation Comments POC IONIZED CALCIUM (test code = 1.18 MMOL/L 1.12-1.32 N POCCA) POC LACTIC [id number] 13:50:00 Test Item Value Reference Range Interpretation Comments POC LACTIC ACID (test code = 0.5 mmol/l 0.9-1.7 L POCLAC) POC [id number] 13:50:00 Test Item Value Reference Range Interpretation Comments POC GLUCOSE (test code = POCGLU) 101 MG/DL 70-110 N POC VENOUS BLOOD [id number] 13:50:00 Test Item Value Reference Range Interpretation Comments POC VENOUS BLOOD GAS PH (test 7.411 7.33-7.45 N code = POCPHV) POC VENOUS BLOOD GAS PCO2 (test 48.6 mmHg 43-47 H code = IQXCSB0F) POC VENOUS BLOOD GAS PO2 (test 42.5 mmHG 10-50 N code = UNYJX3J) POC TCO2 VENOUS (test code = 32.4 EQQELD9Y) POC HCO3 VENOUS (test code = 30.9 MMOL/L 22-27 H [id number]) POC BASE EXCESS VENOUS (test code 5.6 MMOL/L -4.0-4.0 H = POCBEV) POC O2 SATURATION VENOUS (test 77.7 % 60-80 N code = EGUJ9RK) [id number] 13:50:00 Test Item Value Reference Range Interpretation Comments CHLORIDE (test code = CL/VBG) 98 MEQ/L PROTHROMBIN [id number] 09:51:00 Test Item Value Reference Range Interpretation Comments PROTHROMBIN TIME 15.2 SECONDS 9.3-12.9 H PATIENT (test code = PTP) INTERNATIONAL NORMAL 1.4 0.8-1.2 H TARGET RATIO (test code = INR BY IN DICATION INR) Indication INR1. Prophyl axis of venous thrombos is 2.0 - 3. 0 (orthopedic festus antonella), Prophylaxis of venous thrombos is (other than hig h-risk surgery), Iliana tment of Deep Vein Thrombosis/Pulm onary Embolism, Preve ntion of systemic emb olism - Tissue heart va lves, Acute Myocardia l Infarction (to prevent systemic embo lism), Valvular heart disease, Atri al Fibrillation, Bileaflet mecha nical valve in aortic position.2. Mec hanical prosthetic valv es (high risk), 2.5 - 3.5 Presence of Lupus Anticoagu lant or Antiphospholi pid Antibodies, Pre vention of systemic e mbolism - Acute Myocard ial Infarction (t o prevent recurre nt infarct). BASIC METABOLIC [id number] 08:49:00 Test Item Value Reference Range Interpretation Comments SODIUM (test code = NA) 137 mEq/L 134-147 N POTASSIUM (test code = 3.9 mEq/L 3.4-5.0 N K) CHLORIDE (test code = 100 mEq/L 100-108 N CL) CARBON DIOXIDE (test 25 mEq/l 21-33 N code = CO2) ANION GAP (test code = 16 0-20 N GAP) GLUCOSE (test code = 121 mg/dL 70-110 H GLU) BLOOD UREA NITROGEN 58 mg/dL 7-18 H (test code = BUN) GLOMERULAR FILTRATION 58.9 70-80 L Units of measure = RATE (test code = GFR) ml/mi n/1.73 m2 CREATININE (test code = 1.2 mg/dL 0.6-1.3 CREAT) CALCIUM (test code = 8.8 mg/dL 8.0-10.5 N CA) CBC W/AUTO [id number] 07:50:00 Test Item Value Reference Range Interpretation Comments WHITE BLOOD CELL (test code = 5.8 x10 3/uL 4.5-11.0 N WBC) RED BLOOD CELL (test code = 2.23 x10 6/uL 4.00-5.60 L RBC) HEMOGLOBIN (test code = HGB) 7.4 g/dL 12.5-16.9 L HEMATOCRIT (test code = HCT) 24.5 % 37.5-50.7 L MEAN CELL VOLUME (test code = 109.9 fL 81.0-99.0 H MCV) MEAN CELL HGB (test code = MCH) 33.2 pg 27.0-33.0 H MEAN CELL HGB CONCETRATION 30.2 g/dL 33.0-37.0 L (test code = MCHC) RED CELL DISTRIBUTION WIDTH CV 16.2 % 11.5-14.5 H (test code = RDW) RED CELL DISTRIBUTION WIDTH SD 62.7 fL 37.0-54.0 H (test code = RDW-SD) PLATELET COUNT (test code = 121 x10 3/uL 150-400 L PLT) MEAN PLATELET VOLUME (test code 12.1 fL 7.0-9.0 H = MPV) NEUTROPHIL % (test code = NT%) 69.9 % 56.0-77.0 N IMMATURE GRANULOCYTE % (test 0.3 % 0.0-2.0 N code = IG%) LYMPHOCYTE % (test code = LY%) 15.9 % 14.0-32.0 N MONOCYTE % (test code = MO%) 12.2 % 4.8-9.0 H EOSINOPHIL % (test code = EO%) 1.4 % 0.3-3.7 N BASOPHIL % (test code = BA%) 0.3 % 0.0-2.0 N NUCLEATED RBC % (test code = 0.0 % 0-0 N NRBC%) NEUTROPHIL # (test code = NT#) 4.08 x10 3/uL 2.0-7.6 N IMMATURE GRANULOCYTE # (test 0.02 x10 3/uL 0.00-0.03 N code = IG#) LYMPHOCYTE # (test code = LY#) 0.93 x10 3/uL 1.0-3.8 L MONOCYTE # (test code = MO#) 0.71 x10 3/uL 0.1-0.8 N EOSINOPHIL # (test code = EO#) 0.08 x10 3/uL 0.0-0.2 N BASOPHIL # (test code = BA#) 0.02 x10 3/uL 0.0-0.2 N NUCLEATED RBC # (test code = 0.00 x10 3/uL 0.0-0.1 N NRBC#) MANUAL DIFF REQUIRED (test code NO = MDIFF) [id number] 06:02:00 Test Item Value Reference Range Interpretation Comments GLUBED (test code = 97 MG/DL 70-110 N Performe d by certified GLUBED) rail operator at [facility] [id number] 19:46:00 Test Item Value Reference Range Interpretation Comments GLUBED (test code = 181 MG/DL 70-110 H Performe d by certified GLUBED) rail operator at [facility] [id number] 17:02:00 Test Item Value Reference Range Interpretation Comments GLUBED (test code = 137 MG/DL 70-110 H Performe d by certified GLUBED) rail operator at [facility] [id number] 17:01:00 Test Item Value Reference Range Interpretation Comments GLUBED (test code = 122 MG/DL 70-110 H Performe d by certified GLUBED) rail operator at [facility] [id number] 06:54:00 Test Item Value Reference Range Interpretation Comments GLUBED (test code = 159 MG/DL 70-110 H Performe d by certified GLUBED) rail operator at [facility] BASIC METABOLIC [id number] 06:06:00 Test Item Value Reference Range Interpretation Comments SODIUM (test code = NA) 136 mEq/L 134-147 N POTASSIUM (test code = 4.2 mEq/L 3.4-5.0 N K) CHLORIDE (test code = 100 mEq/L 100-108 N CL) CARBON DIOXIDE (test 27 mEq/l 21-33 N code = CO2) ANION GAP (test code = 13 0-20 N GAP) GLUCOSE (test code = 81 mg/dL 70-110 GLU) BLOOD UREA NITROGEN 26 mg/dL 7-18 H (test code = BUN) GLOMERULAR FILTRATION 13.5 70-80 L Units of measure = RATE (test code = GFR) ml/mi n/1.73 m2 CREATININE (test code = 4.3 mg/dL 0.6-1.3 H CREAT) CALCIUM (test code = 9.0 mg/dL 8.0-10.5 N CA) COMMENTS: To be done morning of Heart CathCBC W/AUTO [id number] 05:50:00 Test Item Value Reference Range Interpretation Comments WHITE BLOOD CELL (test code = 6.6 x10 3/uL 4.5-11.0 N WBC) RED BLOOD CELL (test code = 2.30 x10 6/uL 4.00-5.60 L RBC) HEMOGLOBIN (test code = HGB) 7.6 g/dL 12.5-16.9 L HEMATOCRIT (test code = HCT) 24.2 % 37.5-50.7 L MEAN CELL VOLUME (test code = 105.2 fL 81.0-99.0 H MCV) MEAN CELL HGB (test code = MCH) 33.0 pg 27.0-33.0 N MEAN CELL HGB CONCETRATION 31.4 g/dL 33.0-37.0 L (test code = MCHC) RED CELL DISTRIBUTION WIDTH CV 15.9 % 11.5-14.5 H (test code = RDW) RED CELL DISTRIBUTION WIDTH SD 57.7 fL 37.0-54.0 H (test code = RDW-SD) PLATELET COUNT (test code = 118 x10 3/uL 150-400 L PLT) MEAN PLATELET VOLUME (test code 11.0 fL 7.0-9.0 H = MPV) NEUTROPHIL % (test code = NT%) 75.1 % 56.0-77.0 N IMMATURE GRANULOCYTE % (test 0.3 % 0.0-2.0 N code = IG%) LYMPHOCYTE % (test code = LY%) 11.3 % 14.0-32.0 L MONOCYTE % (test code = MO%) 12.1 % 4.8-9.0 H EOSINOPHIL % (test code = EO%) 0.9 % 0.3-3.7 N BASOPHIL % (test code = BA%) 0.3 % 0.0-2.0 N NUCLEATED RBC % (test code = 0.0 % 0-0 N NRBC%) NEUTROPHIL # (test code = NT#) 4.96 x10 3/uL 2.0-7.6 N IMMATURE GRANULOCYTE # (test 0.02 x10 3/uL 0.00-0.03 N code = IG#) LYMPHOCYTE # (test code = LY#) 0.75 x10 3/uL 1.0-3.8 L MONOCYTE # (test code = MO#) 0.80 x10 3/uL 0.1-0.8 N EOSINOPHIL # (test code = EO#) 0.06 x10 3/uL 0.0-0.2 N BASOPHIL # (test code = BA#) 0.02 x10 3/uL 0.0-0.2 N NUCLEATED RBC # (test code = 0.00 x10 3/uL 0.0-0.1 N NRBC#) MANUAL DIFF REQUIRED (test code NO = MDIFF) COMMENTS: To be done morning of Heart [id number] 21:38:00 Test Item Value Reference Range Interpretation Comments GLUBED (test code = 149 MG/DL 70-110 H Performe d by certified GLUBED) rail operator at [facility] ACUTE HEPATITIS [id number] 18:17:00 Test Item Value Reference Range Interpretation Comments AB HEPATITIS A IGM (test NON REACTIVE INDEX NON REACT. code = HAVMAB) AG HEPATITIS B SURFACE NON REACTIVE INDEX NonReactive (test code = HBSAG) AB HEPATITIS B CORE IGM NON REACTIVE INDEX NON REACT. (test code = HBCMAB) AB HEPATITIS C (test code NON REACTIVE INDEX NON REACT. = HCVAB) [id number] 17:56:00 Test Item Value Reference Range Interpretation Comments GLUBED (test code = 131 MG/DL 70-110 H Performe d by certified GLUBED) rail operator at [facility] COVID 19 Asymptomatic IH [id number] 16:55:00 Test Item Value Reference Range Interpretation Comments COVID 19 Asymptomatic Negative Negative A nega tive result is IH AG (test code = presumpti ve and should COVNONPUIAG) be confirmedwit h an FDA authorized mole cular assay, if neces kendrick forpatient andrea gement.A positive result does not rule out co-inf ections withother patho gens.This test detects liudmila th viable (live) and non-viable,SARS -CoV, and SARS-CoV-2. Gladis t performance dep ends on theamount of vi prince (antigen) in th e sample.This gladis t has not been FDA cleare d or approved; the t est hasbeen authori zed by FDA under an Em ergency Use Authorizati on(EUA) for use by labo ratories certified under the CLIA thatmeet the requirements to perform moderate, high or waivedcomplexit y tests. COMMENTS: [facility] [id number] 16:53:00 Test Item Value Reference Range Interpretation Comments WHITE BLOOD CELL (test code = 6.6 x10 3/uL 4.5-11.0 N WBC) RED BLOOD CELL (test code = 2.41 x10 6/uL 4.00-5.60 L RBC) HEMOGLOBIN (test code = HGB) 8.3 g/dL 12.5-16.9 L HEMATOCRIT (test code = HCT) 26.1 % 37.5-50.7 L MEAN CELL VOLUME (test code = 108.3 fL 81.0-99.0 H MCV) MEAN CELL HGB (test code = MCH) 34.4 pg 27.0-33.0 H MEAN CELL HGB CONCETRATION 31.8 g/dL 33.0-37.0 L (test code = MCHC) RED CELL DISTRIBUTION WIDTH CV 15.7 % 11.5-14.5 H (test code = RDW) RED CELL DISTRIBUTION WIDTH SD 57.6 fL 37.0-54.0 H (test code = RDW-SD) PLATELET COUNT (test code = 119 x10 3/uL 150-400 L PLT) MEAN PLATELET VOLUME (test code 11.2 fL 7.0-9.0 H = MPV) NEUTROPHIL % (test code = NT%) 72.7 % 56.0-77.0 N IMMATURE GRANULOCYTE % (test 0.3 % 0.0-2.0 N code = IG%) LYMPHOCYTE % (test code = LY%) 15.0 % 14.0-32.0 N MONOCYTE % (test code = MO%) 10.3 % 4.8-9.0 H EOSINOPHIL % (test code = EO%) 1.4 % 0.3-3.7 N BASOPHIL % (test code = BA%) 0.3 % 0.0-2.0 N NUCLEATED RBC % (test code = 0.5 % 0-0 H NRBC%) NEUTROPHIL # (test code = NT#) 4.81 x10 3/uL 2.0-7.6 N IMMATURE GRANULOCYTE # (test 0.02 x10 3/uL 0.00-0.03 N code = IG#) LYMPHOCYTE # (test code = LY#) 0.99 x10 3/uL 1.0-3.8 L MONOCYTE # (test code = MO#) 0.68 x10 3/uL 0.1-0.8 N EOSINOPHIL # (test code = EO#) 0.09 x10 3/uL 0.0-0.2 N BASOPHIL # (test code = BA#) 0.02 x10 3/uL 0.0-0.2 N NUCLEATED RBC # (test code = 0.03 x10 3/uL 0.0-0.1 N NRBC#) MANUAL DIFF REQUIRED (test code NO = MDIFF) RBC [id number] 16:53:00 Test Item Value Reference Range Interpretation Comments POLYCHROMASIA (test code = POLC) 1+ POIKILOCYTOSIS (test code = POIK) SLIGHT ANISOCYTOSIS (test code = ANISO) 1+ MACROCYTOSIS (test code = MACR) 1+ ELLIPTOCYTES (test code = ELL) FEW BASIC METABOLIC [id number] 16:30:00 Test Item Value Reference Range Interpretation Comments SODIUM (test code = NA) 131 mEq/L 134-147 L POTASSIUM (test code = 5.0 mEq/L 3.4-5.0 K) CHLORIDE (test code = 97 mEq/L 100-108 L CL) CARBON DIOXIDE (test 24 mEq/l 21-33 N code = CO2) ANION GAP (test code = 15 0-20 N GAP) GLUCOSE (test code = 115 mg/dL 70-110 H GLU) BLOOD UREA NITROGEN 58 mg/dL 7-18 H (test code = BUN) GLOMERULAR FILTRATION 9.2 70-80 L Units of measure = RATE (test code = GFR) ml/mi n/1.73 m2 CREATININE (test code = 6.0 mg/dL 0.6-1.3 H CREAT) CALCIUM (test code = 8.3 mg/dL 8.0-10.5 N CA) CBC W/AUTO [id number] 16:24:00 Test Item Value Reference Range Interpretation Comments WHITE BLOOD CELL (test code = 6.6 x10 3/uL 4.5-11.0 N WBC) RED BLOOD CELL (test code = 2.41 x10 6/uL 4.00-5.60 L RBC) HEMOGLOBIN (test code = HGB) 8.3 g/dL 12.5-16.9 L HEMATOCRIT (test code = HCT) 26.1 % 37.5-50.7 L MEAN CELL VOLUME (test code = 108.3 fL 81.0-99.0 H MCV) MEAN CELL HGB (test code = MCH) 34.4 pg 27.0-33.0 H MEAN CELL HGB CONCETRATION 31.8 g/dL 33.0-37.0 L (test code = MCHC) RED CELL DISTRIBUTION WIDTH CV 15.7 % 11.5-14.5 H (test code = RDW) RED CELL DISTRIBUTION WIDTH SD 57.6 fL 37.0-54.0 H (test code = RDW-SD) PLATELET COUNT (test code = 119 x10 3/uL 150-400 L PLT) MEAN PLATELET VOLUME (test code 11.2 fL 7.0-9.0 H = MPV) NEUTROPHIL % (test code = NT%) 72.7 % 56.0-77.0 N IMMATURE GRANULOCYTE % (test 0.3 % 0.0-2.0 N code = IG%) LYMPHOCYTE % (test code = LY%) 15.0 % 14.0-32.0 N MONOCYTE % (test code = MO%) 10.3 % 4.8-9.0 H EOSINOPHIL % (test code = EO%) 1.4 % 0.3-3.7 N BASOPHIL % (test code = BA%) 0.3 % 0.0-2.0 N NUCLEATED RBC % (test code = 0.5 % 0-0 H NRBC%) NEUTROPHIL # (test code = NT#) 4.81 x10 3/uL 2.0-7.6 N IMMATURE GRANULOCYTE # (test 0.02 x10 3/uL 0.00-0.03 N code = IG#) LYMPHOCYTE # (test code = LY#) 0.99 x10 3/uL 1.0-3.8 L MONOCYTE # (test code = MO#) 0.68 x10 3/uL 0.1-0.8 N EOSINOPHIL # (test code = EO#) 0.09 x10 3/uL 0.0-0.2 N BASOPHIL # (test code = BA#) 0.02 x10 3/uL 0.0-0.2 N NUCLEATED RBC # (test code = 0.03 x10 3/uL 0.0-0.1 N NRBC#) MANUAL DIFF REQUIRED (test code NO = MDIFF) RBC [id number] 16:24:00 Test Item Value Reference Range Interpretation Comments ANISOCYTOSIS (test code = ANISO) CBC W/AUTO [id number] 16:24:00 Test Item Value Reference Range Interpretation Comments WHITE BLOOD CELL (test code = 6.6 x10 3/uL 4.5-11.0 N WBC) RED BLOOD CELL (test code = 2.41 x10 6/uL 4.00-5.60 L RBC) HEMOGLOBIN (test code = HGB) 8.3 g/dL 12.5-16.9 L HEMATOCRIT (test code = HCT) 26.1 % 37.5-50.7 L MEAN CELL VOLUME (test code = 108.3 fL 81.0-99.0 H MCV) MEAN CELL HGB (test code = MCH) 34.4 pg 27.0-33.0 H MEAN CELL HGB CONCETRATION 31.8 g/dL 33.0-37.0 L (test code = MCHC) RED CELL DISTRIBUTION WIDTH CV 15.7 % 11.5-14.5 H (test code = RDW) RED CELL DISTRIBUTION WIDTH SD 57.6 fL 37.0-54.0 H (test code = RDW-SD) PLATELET COUNT (test code = 119 x10 3/uL 150-400 L PLT) MEAN PLATELET VOLUME (test code 11.2 fL 7.0-9.0 H = MPV) NEUTROPHIL % (test code = NT%) 72.7 % 56.0-77.0 N IMMATURE GRANULOCYTE % (test 0.3 % 0.0-2.0 N code = IG%) LYMPHOCYTE % (test code = LY%) 15.0 % 14.0-32.0 N MONOCYTE % (test code = MO%) 10.3 % 4.8-9.0 H EOSINOPHIL % (test code = EO%) 1.4 % 0.3-3.7 N BASOPHIL % (test code = BA%) 0.3 % 0.0-2.0 N NUCLEATED RBC % (test code = 0.5 % 0-0 H NRBC%) NEUTROPHIL # (test code = NT#) 4.81 x10 3/uL 2.0-7.6 N IMMATURE GRANULOCYTE # (test 0.02 x10 3/uL 0.00-0.03 N code = IG#) LYMPHOCYTE # (test code = LY#) 0.99 x10 3/uL 1.0-3.8 L MONOCYTE # (test code = MO#) 0.68 x10 3/uL 0.1-0.8 N EOSINOPHIL # (test code = EO#) 0.09 x10 3/uL 0.0-0.2 N BASOPHIL # (test code = BA#) 0.02 x10 3/uL 0.0-0.2 N NUCLEATED RBC # (test code = 0.03 x10 3/uL 0.0-0.1 N NRBC#) MANUAL DIFF REQUIRED (test code NO = MDIFF) RBC [id number] 16:24:00 Test Item Value Reference Range Interpretation Comments ANISOCYTOSIS (test code = ANISO) - CTA HEART W CN [id number] 14:45:00 [facility] 1945 Sex: M Name: LOUIS PRITCHARD [facility] : 10/1944 Age/S: 75 / M [address] [place] [address] Unit #: [id number] Loc: [place] [address] Phys: Nikia Vaughn 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 DATE: 04/24/2020 11:41 AM : 1945; Age: 75 years y/o Male INDICATION: SEVERE AORTIC STENOSIS. TAVR EVALUATION ADMINISTERED CONTRAST: 100 mL of Isovue 300 intravenously. DLP: 2409 mGy-cm CT imaging performed at this location utilizes radiation dose optimization techniqueswhich include one or more of the following: -Automated exposure control -Adjustment of the mA and/or kV according to patient size -Use of iterative reconstruction technique FINDINGS: Contiguous 0.5 mm axial images of the chest, abdomen and pelvis were obtained with IV contrast using the CT angiogram protocol. The acquired data was used to create 5 mm axial reconstructions coronal reformatted images and 3-D reconstructions with the use of the Wor kstation. CHEST: Estimated aortic diameters are as follows: Aortic annulus: 3.4 cm Aortic root: 3.7 cm Sinotubular junction: 3.3 cm Right cusp height (to RCA takeoff): 1.7 cm Left cusp height (to Left main takeoff): 1.7 cm Mid ascending aorta: 3.4 cm Mid transverse arch: 2.9 cm Descending thoracic aorta at the level of thepulmonary arteries: 2.6 cm Small mediastinal nodes. Prominent cardiomegaly is seen with prior CABG changes. No pericardial effusion. Slightly prominent main pulmonary artery. Small bilateral pleural effusions. Moderate coronary arteries calcification. Moderate aortic root calcification. Mild thoracic aortic calcifications with wall irregularity involving the aortic arch. Moderate patchy groundglass opacities bilaterally. Lower lobes atelectatic changes. ABDOMEN: Estimated aortoiliac/iliofemoral arterial diameters are as follows: PAGE 1 Signed Report (CONTINUED) Name: LOUIS PRITCHARD [facility] : 1945 Age/S: 75 / M [address] [place] [address] Unit #: [id number] Loc: [place] [address] Phys: Nikia Benito TRANSFER COORDINATOR Acct: [id number] Dis Date: Status: ADM IN PHONE #: [phone] Exam Date: 04/24/2020 1326 FAX #: [phone] Reason: EXAMS: CPT CODE: [id number] CTA HEART W CN ART/GRAFTS [id number] <Continued> Abdominal aorta just below the renal arteries: 1.9 cm Distal abdominal aortaat iliac bifurcation: 1.8 cm Right common iliac artery: 1.1 cm Left common iliac artery:1.2 cm Right common femoral artery: 1 cm Left common femoral artery: 0.9 cm Mild atherosclerotic narrowing at the origin of the celiac artery. Mild atherosclerotic changes involving the proximal to midportion of the superior mesenteric artery. Mild to moderate atherosclerotic changes involving bilateral renal arteries. Moderate atherosclerotic changes involving the abdominal aorta. SHIVAM is patent. Moderate atherosclerotic changes involving major pelvic arteries. Streak artifacts limits detailed evaluation of the abdomen and pelvis. Layering gallbladder sludge. Liver, adrenal glands, spleen and pancreas appears grosslyunremarkable. Some cortical thinning of bilateral kidneys. No right hydronephrosis. Left kidney lower pole small simple cyst. Left kidney upper pole simple cyst measuring 6.4 cm.No bowel obstruction. Bladder is not well distended limiting its evaluation. Trace pelvic free fluid.. Body wall edema. Spine degenerative changes. Mild to moderate anterolisthesis withpars defect at L5-S1. Prior sternotomy changes. IMPRESSION: 1. Prominent cardiomegaly with pulmonary hypertension and prior CABG changes. Moderate aortic root calcification with mild thoracic aortic calcifications is seen. Mild wall irregularities noted involving the aortic arch. 2. Moderate pulmonary edema changes with smallbilateral pleural effusions. 3. No gross acute intra-abdominal process. 4. Left renal simple cysts. 5. Body wall edema with trace pelvic free fluid. at 1445 Reported and signed by: Jerry Reynolds D.O. PAGE 2 Signed Report (CONTINUED) Name: LOUIS PRITCHARD [facility] : 1945 Age/S: 75 / M [address] [place] [address] Blvd Unit #: [id number] Loc: [place] [address] Phys: Nikia Benito TRANSFER COORDINATOR Acct: [id number] Dis Date:Status: ADM IN PHONE #: [phone] Exam Date: 04/24/20201325 FAX #: [phone] Reason: EXAMS: CPT CODE: [id number] CTA HEART W CN ART/GRAFTS 03475 <Continued>CC: VivianaDwayne Adler DO; Gage Turner MD; Nikia Benito NP Technologist:Hernan Jhaveri, RT(R)(CT) CTDI: DLP: Trnscb Date/Time: 04/24/2020 (1444) t.MEÑOR.MP37 Orig Print D/T: S: 04/24/2020 (3076) PAGE 3 Signed Report- CT ANGIO [id number] 14:45:00 [facility] 1945 Sex: M Name: LOUIS PRITCHARD [facility] : 10/1944 Age/S: 75 / M [address] [place] [address] Blvd Unit #: [id number] Loc: [place] [address] Phys: Nikia Vaughn TRANSFER COORDINATOR Acct: [id number] Dis Date: Status: ADM IN PHONE #: [phone] Exam Date: 04/24/20201325 FAX #: [phone]: SEVERE AORTIC STENOSIS. TAVR EVALUATION EXAMS: CPT CODE: [id number] CT ANGIO CHEST 80573 CHEST, ABDOMEN AND PELVIS CT ANGIOGRAM WITH AND WITHOUT IV CONTRAST WITH MULTIPLANAR REFORMATS AND 3D RECONSTRUCTIONS (TAVR PROTOCOL). DATE: 04/24/2020 11:41 AM : 1945; Age: 75 years y/o Male INDICATION: SEVERE AORTIC STENOSIS. TAVR EVALUATION ADMINISTERED CONTRAST: 100 mL of Isovue 300 intravenously. DLP: 2409 mGy-cm CT imaging performed at this location utilizes radiation dose optimization techniqueswhich include one or more of the following: -Automated exposure control -Adjustment of the mA and/or kV according to patient size -Use of iterative reconstruction technique FINDINGS: Contiguous 0.5 mm axial images of the chest, abdomen and pelvis were obtained with IV contrast using the CT angiogram protocol. The acquired data was used to create 5 mm axial reconstructions coronal reformatted images and 3-D reconstructions with the use of the Wor kstation. CHEST: Estimated aortic diameters are as follows: Aortic annulus: 3.4 cm Aortic root: 3.7 cm Sinotubular junction: 3.3 cm Right cusp height (to RCA takeoff): 1.7 cm Left cusp height (to Left main takeoff): 1.7 cm Mid ascending aorta: 3.4 cm Mid transverse arch: 2.9 cm Descending thoracic aorta at the level of thepulmonary arteries: 2.6 cm Small mediastinal nodes. Prominent cardiomegaly is seen with prior CABG changes. No pericardial effusion. Slightly prominent main pulmonary artery. Small bilateral pleural effusions. Moderate coronary arteries calcification. Moderate aortic root calcification. Mild thoracic aortic calcifications with wall irregularity involving the aortic arch. Moderate patchy groundglass opacities bilaterally. Lower lobes atelectatic changes. ABDOMEN: Estimated aortoiliac/iliofemoral arterial diameters are as follows: PAGE 1 Signed Report (CONTINUED) Name: LOUIS PRITCHARD [facility] : 1945 Age/S: 75 / M [address] [place] [address] Blvd Unit #: [id number] Loc: [place] [address] Phys: Nikia Benito TRANSFER COORDINATOR Acct: [id number] Dis Date: Status: ADM IN PHONE #: [phone] Exam Date: 04/24/2020 1326 FAX #: [phone] Reason: SEVERE AORTIC STENOSIS. TAVR EVALUATION EXAMS: CPT CODE: [id number] CT ANGIO CHEST 57476 <Continued> Abdominal aorta just below the renal arteries: 1.9 cm Distal abdominal aortaat iliac bifurcation: 1.8 cm Right common iliac artery: 1.1 cm Left common iliac artery:1.2 cm Right common femoral artery: 1 cm Left common femoral artery: 0.9 cm Mild atherosclerotic narrowing at the origin of the celiac artery. Mild atherosclerotic changes involving the proximal to midportion of the superior mesenteric artery. Mild to moderate atherosclerotic changes involving bilateral renal arteries. Moderate atherosclerotic changes involving the abdominal aorta. SHIVAM is patent. Moderate atherosclerotic changes involving major pelvic arteries. Streak artifacts limits detailed evaluation of the abdomen and pelvis. Layering gallbladder sludge. Liver, adrenal glands, spleen and pancreas appears grosslyunremarkable. Some cortical thinning of bilateral kidneys. No right hydronephrosis. Left kidney lower pole small simple cyst. Left kidney upper pole simple cyst measuring 6.4 cm.No bowel obstruction. Bladder is not well distended limiting its evaluation. Trace pelvic free fluid.. Body wall edema. Spine degenerative changes. Mild to moderate anterolisthesis withpars defect at L5-S1. Prior sternotomy changes. IMPRESSION: 1. Prominent cardiomegaly with pulmonary hypertension and prior CABG changes. Moderate aortic root calcification with mild thoracic aortic calcifications is seen. Mild wall irregularities noted involving the aortic arch. 2. Moderate pulmonary edema changes with smallbilateral pleural effusions. 3. No gross acute intra-abdominal process. 4. Left renal simple cysts. 5. Body wall edema with trace pelvic free fluid. at 1445 Reported and signed by: Jerry Reynolds D.O. PAGE 2 Signed Report (CONTINUED) Name: LOUIS PRITCHARD [facility] : 1945 Age/S: 75 / M [address] [place] [address] Blvd Unit #: [id number] Loc: [facility] [place] [address] Phys: Nikia Benito TRANSFER COORDINATOR Acct: [id number] Dis Date:Status: ADM IN PHONE #: [phone] Exam Date: 04/24/2020 1326 FAX #: [phone] Reason: SEVERE AORTIC STENOSIS. TAVR EVALUATION EXAMS: CPT CODE: [id number] CT ANGIO CHEST 00387 <Continued>CC: Sabine Adler DO; Gage Turner MD; Nikia Zuinga NP Technologist:RT Misa(R)(CT) CTDI: DLP: Trnscb Date/Time: 04/24/2020 (3719) Paul.MP37 Orig Print D/T: S: 04/24/2020 (2353) PAGE 3 Signed Report- CTA ABD PEL W [id number] 14:45:00 [facility] 1945 Sex: M Name: LOUIS PRITCHARD [facility] : 10/1944 Age/S: 75 / M [address] [place] [address] Bl Unit #: [id number] Loc: [place] [address] Phys: Nikia Vaughn NP Acct: [id number] Dis Date: Status: ADM IN PHONE #: [phone] Exam Date: 04/24/2020 1326 FAX #: [phone]: SEVERE AORTIC STENOSIS. TAVR EVALUATION EXAMS: CPT CODE: [id number] CTA ABD PEL W CONT 53433 CHEST, ABDOMEN AND PELVIS CT ANGIOGRAM WITH AND WITHOUT IV CONTRAST WITH MULTIPLANAR REFORMATS AND 3D RECONSTRUCTIONS (TAVR PROTOCOL). DATE: 04/24/2020 11:41 AM : 1945; Age: 75 years y/o Male INDICATION: SEVERE AORTIC STENOSIS. TAVR EVALUATION ADMINISTERED CONTRAST: 100 mL of Isovue 300 intravenously. DLP: 2409 mGy-cm CT imaging performed at this location utilizes radiation dose optimization techniqueswhich include one or more of the following: -Automated exposure control -Adjustment of the mA and/or kV according to patient size -Use of iterative reconstruction technique FINDINGS: Contiguous 0.5 mm axial images of the chest, abdomen and pelvis were obtained with IV contrast using the CT angiogram protocol. The acquired data was used to create 5 mm axial reconstructions coronal reformatted images and 3-D reconstructions with the use of the Wor kstation. CHEST: Estimated aortic diameters are as follows: Aortic annulus: 3.4 cm Aortic root: 3.7 cm Sinotubular junction: 3.3 cm Right cusp height (to RCA takeoff): 1.7 cm Left cusp height (to Left main takeoff): 1.7 cm Mid ascending aorta: 3.4 cm Mid transverse arch: 2.9 cm Descending thoracic aorta at the level of thepulmonary arteries: 2.6 cm Small mediastinal nodes. Prominent cardiomegaly is seen with prior CABG changes. No pericardial effusion. Slightly prominent main pulmonary artery. Small bilateral pleural effusions. Moderate coronary arteries calcification. Moderate aortic root calcification. Mild thoracic aortic calcifications with wall irregularity involving the aortic arch. Moderate patchy groundglass opacities bilaterally. Lower lobes atelectatic changes. ABDOMEN: Estimated aortoiliac/iliofemoral arterial diameters are as follows: PAGE 1 Signed Report (CONTINUED) Name: LOUIS PRITCHARD [facility] : 1945 Age/S: 75 / M [address] [place] [address] Blvd Unit #: [id number] Loc: [place] [address] Phys: Nikia Benito TRANSFER COORDINATOR Acct: [id number] Dis Date: Status: ADM IN PHONE #: [phone] Exam Date: 04/24/2020 1326 FAX #: [phone] Reason: SEVERE AORTIC STENOSIS. TAVR EVALUATION EXAMS: CPT CODE: [id number] CTA ABD PEL W CONT 94521 <Continued> Abdominal aorta just below the renal arteries: 1.9 cm Distal abdominal aortaat iliac bifurcation: 1.8 cm Right common iliac artery: 1.1 cm Left common iliac artery:1.2 cm Right common femoral artery: 1 cm Left common femoral artery: 0.9 cm Mild atherosclerotic narrowing at the origin of the celiac artery. Mild atherosclerotic changes involving the proximal to midportion of the superior mesenteric artery. Mild to moderate atherosclerotic changes involving bilateral renal arteries. Moderate atherosclerotic changes involving the abdominal aorta. SHIVAM is patent. Moderate atherosclerotic changes involving major pelvic arteries. Streak artifacts limits detailed evaluation of the abdomen and pelvis. Layering gallbladder sludge. Liver, adrenal glands, spleen and pancreas appears grosslyunremarkable. Some cortical thinning of bilateral kidneys. No right hydronephrosis. Left kidney lower pole small simple cyst. Left kidney upper pole simple cyst measuring 6.4 cm.No bowel obstruction. Bladder is not well distended limiting its evaluation. Trace pelvic free fluid.. Body wall edema. Spine degenerative changes. Mild to moderate anterolisthesis withpars defect at L5-S1. Prior sternotomy changes. IMPRESSION: 1. Prominent cardiomegaly with pulmonary hypertension and prior CABG changes. Moderate aortic root calcification with mild thoracic aortic calcifications is seen. Mild wall irregularities noted involving the aortic arch. 2. Moderate pulmonary edema changes with smallbilateral pleural effusions. 3. No gross acute intra-abdominal process. 4. Left renal simple cysts. 5. Body wall edema with trace pelvic free fluid. at 1445 Reported and signed by: Jerry Reynolds D.O. PAGE 2 Signed Report (CONTINUED) Name: LOUIS PRITCHARD [facility] : 1945 Age/S: 75 / M [address] [place] [address] Blvd Unit #: [id number] Loc: [place] [address] Phys: Nikia Benito NP Acct: [id number] Dis Date:Status: ADM IN PHONE #: [phone] Exam Date: 04/24/2020 1326 FAX #: [phone] Reason: SEVERE AORTIC STENOSIS. TAVR EVALUATION EXAMS: CPT CODE: [id number] CTA ABD PEL W CONT 50233 <Continued>CC: VivianaDwayne Adler DO; Gage Turner MD; Nikia Benito NP Technologist:RT Misa(R)(CT) CTDI: DLP: Trnscb Date/Time: 04/24/2020 (6679) t.[email or web address].MP37 Orig Print D/T: S: 04/24/2020 (9182) PAGE 3 Signed [id number] 12:03:00 Test Item Value Reference Range Interpretation Comments GLUBED (test code = 129 MG/DL 70-110 H Performe d by certified GLUBED) rail operator at [facility] [id number] 06:50:00 Test Item Value Reference Range Interpretation Comments GLUBED (test code = 108 MG/DL 70-110 N Performe d by certified GLUBED) rail operator at [facility] [id number] 20:54:00 Test Item Value Reference Range Interpretation Comments GLUBED (test code = 154 MG/DL 70-110 H Performe d by certified GLUBED) rail operator at [facility] [id number] 17:36:00 Test Item Value Reference Range Interpretation Comments GLUBED (test code = 122 MG/DL 70-110 H Performe d by certified GLUBED) rail operator at [facility] [id number] 12:14:00 Test Item Value Reference Range Interpretation Comments GLUBED (test code = 164 MG/DL 70-110 H Performe d by certified GLUBED) rail operator at [facility] - [facility] EXTRACRANIAL [id number] 12:03:00 [facility] 1945 Sex: M Name: LOUIS PRITCHARD [facility] : 10/1944 Age/S: 75 / M [address] [place] [address] Unit #: [id number] Loc: [place] [address] Phys: Thad Christianson TRANSFER COORDINATOR Acct: [id number] Dis Date: Status: ADM IN PHONE #: [phone] Exam Date: 04/23/2020 113 FAX #: [phone]: syncope EXAMS: CPT CODE: [id number] [facility] [place] [address] CAROTID ULTRASOUND. INDICATION: Syncope COMPARISON:None. TECHNIQUE: Warner-scale, color Doppler and spectral Doppler of the carotid arteries was performed. Any reported ICA stenoses indirectly reference the distal internal carotid diameter as the denominator for stenosis measurement, utilizing consensus panel criteria. RIGHT: Moderate plaque formation is identified. ICA PSV: 32 cm/sec CCA PSV: 60 cm/sec ICA/CCA ratio: 0.5 Vertebral flow is antegrade. LEFT: Moderate plaqueformation is identified. ICA PSV: 104 cm/sec CCA PSV: 126 cm/sec ICA/CCA ratio: 0.8 Vertebral flow is antegrade. IMPRESSION: 1. RIGHT: Carotid artery stenosis estimated at less than 50%. 2. LEFT: Carotid artery stenosis estimated at less than 50%. End Impression Consensus panel Doppler US criteria for diagnosis of ICA stenosis. Stenosis (%) ICA PSV (cm/sec) ICA/CCA ratio <50 <125 <2.0 50-69 125-230 2.0-4.0 >70 but less than >230 >4.0 near occlusion Near occlusion High, low, or undetectable Variable SL: [id number] PAGE 1 Signed Report (CONTINUED) Name: LOUIS PRITCHARD [facility] : 1945 Age/S: 75 / M [address] [place] [address] Blvd Unit #: [id number] Loc: [place] [address] Phys: Thad Christianson TRANSFER COORDINATOR Acct: [id number] Dis Date: Status: ADM IN PHONE #: [phone] Exam Date: 04/23/2020 1137 FAX #: [phone] Reason: syncope EXAMS: CPT CODE: [id number] [facility] [place] [address] <Continued> at 1203 Reported and signed by: Otf Ayon M.D. CC: Dominic Adler DO; Thad Christianson TRANSFER COORDINATOR; Gage Turner MD Technologist: Brock Guzman Trnscb Date/Time: 04/23/2020 (1203) [email or web address] Orig Print D/T: S: 04/23/2020 (1207) Probe: PAGE 2 Signed ReportTOTAL IRON BINDING [id number] 08:54:00 Test Item Value Reference Range Interpretation Comments SERUM IRON (test code = IRON) 53 mcg/dL 35-150 N TOTAL IRON BINDING CAPACITY (test 191 mcg/dL 260-445 L code = TIBC) UIBC (test code = UIBC) 138 mcg/dL IRON SATURATION (test code = 27.7 % 14-34 N FESAT) VITAMIN [id number] 08:54:00 Test Item Value Reference Range Interpretation Comments VITAMIN B12 (test code = VITB12) 761 pg/mL 193-986 N [id number] 08:54:00 Test Item Value Reference Range Interpretation Comments FERRITIN (test code = MARTÍN) 4618.8 ng/mL 23.9-336.2 H - CT HEAD/BRAIN W/O [id number] 08:45:00 [facility] : 1945 Sex: M Name: LOUIS PRITCHARD [facility] : 10/1944 Age/S: 75 / M [address] [place] [address] Unit #: [id number] Loc: [place] [address] Phys: Thad Christianson TRANSFER COORDINATOR Acct: [id number] Dis Date: Status: ADM IN PHONE #: [phone] Exam Date: 04/23/2020 0825 FAX #: [phone]: syncope EXAMS: CPT CODE: [id number] CT HEAD/BRAIN W/O CONT 25540 CT HEAD WITHOUT CONTRAST INDICATION: Syncope. COMPARISON: None. TECHNIQUE: Noncontrast CT head was performed from skull base to vertex at 3 mm slice collimation. Coronal and sagittal reconstructions performed. DOSE: CT imaging performedat this location utilizes radiation dose optimization technique which includes one or more of the followin) Automated exposure control; 2) Adjustment of the mA and/or kV accordingto patient's size; 3) Use of iterative reconstruction techniques. DLP: 1115 mGy-cm FINDINGS: BRAIN PARENCHYMA AND VENTRICLES: Intracranial vascular calcifications are present. Warner-white matter differentiation is preserved. Ventricles are normal in size. No mass effect or midline shift. No extra-axial fluid collections. No acute intraparenchymal hemorrhage. Posterior fossa and midline structures appear normal. ORBITS, PARANASAL SINUSES, AND MASTOIDS: Visualized portions of the paranasal sinuses and mastoid air cells are clear. SKULL: Calvarium is intact. IMPRESSION: No acute intracranial findings. SL: [id number] at 0845 Reported and signed by: Otf Ayon M.D. PAGE 1 Signed Report (CONTINUED) Name: LOUIS PRITCHARD [facility] : 1945 Age/S: 75 / M [address] [place] [address] Unit #: [id number] Loc: [place] [address] Phys: MeghanThad TRANSFER COORDINATOR Acct: [id number] Dis Date: Status: ADM IN PHONE #: [phone] Exam Date: 04/23/2020824 FAX #: [phone] Reason: syncopeEXAMS: CPT CODE: [id number] CT HEAD/BRAIN W/O CONT 37670 <Continued> CC: Dominic Adler DO; Thad Christianson TRANSFER COORDINATOR; Gage Turner MD Technologist:Renée Tyler, RT(R)(CT) CTDI: DLP: Trnscb Date/Time: 04/23/2020 (0845) t.[email or web address].SG9 Orig Print D/T: S: 04/23/2020 (1949) PAGE 2 Signed ReportGLUBED 2020-04-23 07:45:00 Test Item Value Reference Range Interpretation Comments GLUBED (test code = 95 MG/DL 70-110 N Performe d by certified GLUBED) rail operator at [facility] COMPREHENSIVE METABOLIC [id number] 06:30:00 Test Item Value Reference Range Interpretation Comments SODIUM (test code = NA) 136 mEq/L 134-147 N POTASSIUM (test code = 3.8 mEq/L 3.4-5.0 N K) CHLORIDE (test code = 100 mEq/L 100-108 N CL) CARBON DIOXIDE (test 28 mEq/l 21-33 N code = CO2) ANION GAP (test code = 12 0-20 N GAP) GLUCOSE (test code = 89 mg/dL 70-110 GLU) BLOOD UREA NITROGEN 38 mg/dL 7-18 H (test code = BUN) GLOMERULAR FILTRATION 10.4 70-80 L Units of measure = RATE (test code = GFR) ml/mi n/1.73 m2 CREATININE (test code = 5.4 mg/dL 0.6-1.3 H CREAT) TOTAL PROTEIN (test 5.9 g/dL 6.4-8.2 L code = PROT) ALBUMIN (test code = 3.20 g/dL 3.4-5.0 L ALB) CALCIUM (test code = 9.2 mg/dL 8.0-10.5 N CA) BILIRUBIN TOTAL (test 0.70 mg/dL 0.0-1.0 N code = BILT) SGOT/AST (test code = 62 IUnit/L 15-37 H AST) SGPT/ALT (test code = 248 IUnit/L 30-65 H ALT) ALKALINE PHOSPHATASE 152 IUnit/L 20-125 H TOTAL (test code = ALKP) LIPID PROFILE (CORONARY RISK)2020-04-23 06:30:00 Test Item Value Reference Range Interpretation Comments TRIGLYCERIDES (test 121 mg/dL 40-150 N code = TRIG) CHOLESTEROL (test 114 mg/dL <200 code = CHOL) CHOLESTEROL/HDL 5.00 RATIO 3.43-4.97 H RISK ASSOCIA CARLY WITH RATIO (test code = CHOL/HDL RATIOS: CHOLHDL) RISK MALE FEMALE1/2 A VERAGE 3.43 3.27AVERAGE 4.97 4.[address]ERAGE 9[address] RAGE 23.39 11.04 NOTE THAT THE REFERENCE VALUE IS RELATEDTO RISK LEVELS RECOMMENDED BY THE NATL.HEART, GISELLE G, AND BLOOD INST. HDL CHOLESTEROL < 20.0 mg/dL 32-72 L (test code = HDL) LIPOPROTEIN LDL 77.7 mg/dL 0-100 N <100 (test code = LDL) GUCQCHP305 -129 NEAR OPTIMAL/ABOVE [id number] 89 HIGH>RA=835 VE RY HIGH*Guidelines provided by the National Choles terol EducationProgra m Adult Treatment Panel III [id number] 06:30:00 Test Item Value Reference Range Interpretation Comments PHOSPHOROUS (test code = PHOS) 3.8 MG/DL 2.5-4.9 N [id number] 06:30:00 Test Item Value Reference Range Interpretation Comments MAGNESIUM (test code = MAG) 2.30 mg/dL 1.80-2.40 N [id number] 06:30:00 Test Item Value Reference Range Interpretation Comments TROPONIN-I 1.599 ng/mL 0.000-0.045 HH Critical result called to (test code = Ry ABBOTT y G.[facility] at [facility]) 0604/23/20Nu rse read back result and tech confirmed it's correct? Y ESNegative: <= 0.0 45 Positive: >= 0. 046 Correlation wit h serial results, other cardiac markers andclin ical findings is necessary to determine the clinicalsignifi cance of this result. Results using different metho dologies should not be c omparedto one another as santo titative results may dalia y by method. CBC W/AUTO [id number] 06:28:00 Test Item Value Reference Range Interpretation Comments WHITE BLOOD CELL (test code = 5.6 x10 3/uL 4.5-11.0 N WBC) RED BLOOD CELL (test code = 2.30 x10 6/uL 4.00-5.60 L RBC) HEMOGLOBIN (test code = HGB) 7.7 g/dL 12.5-16.9 L HEMATOCRIT (test code = HCT) 24.3 % 37.5-50.7 L MEAN CELL VOLUME (test code = 105.7 fL 81.0-99.0 H MCV) MEAN CELL HGB (test code = MCH) 33.5 pg 27.0-33.0 H MEAN CELL HGB CONCETRATION 31.7 g/dL 33.0-37.0 L (test code = MCHC) RED CELL DISTRIBUTION WIDTH CV 15.3 % 11.5-14.5 H (test code = RDW) RED CELL DISTRIBUTION WIDTH SD 55.7 fL 37.0-54.0 H (test code = RDW-SD) PLATELET COUNT (test code = 129 x10 3/uL 150-400 L PLT) MEAN PLATELET VOLUME (test code 11.5 fL 7.0-9.0 H = MPV) NEUTROPHIL % (test code = NT%) 63.4 % 56.0-77.0 N IMMATURE GRANULOCYTE % (test 0.5 % 0.0-2.0 N code = IG%) LYMPHOCYTE % (test code = LY%) 22.3 % 14.0-32.0 N MONOCYTE % (test code = MO%) 12.0 % 4.8-9.0 H EOSINOPHIL % (test code = EO%) 1.6 % 0.3-3.7 N BASOPHIL % (test code = BA%) 0.2 % 0.0-2.0 N NUCLEATED RBC % (test code = 1.8 % 0-0 H NRBC%) NEUTROPHIL # (test code = NT#) 3.53 x10 3/uL 2.0-7.6 N IMMATURE GRANULOCYTE # (test 0.03 x10 3/uL 0.00-0.03 N code = IG#) LYMPHOCYTE # (test code = LY#) 1.24 x10 3/uL 1.0-3.8 N MONOCYTE # (test code = MO#) 0.67 x10 3/uL 0.1-0.8 N EOSINOPHIL # (test code = EO#) 0.09 x10 3/uL 0.0-0.2 N BASOPHIL # (test code = BA#) 0.01 x10 3/uL 0.0-0.2 N NUCLEATED RBC # (test code = 0.10 x10 3/uL 0.0-0.1 N NRBC#) MANUAL DIFF REQUIRED (test code NO = MDIFF) [id number] 00:58:00 Test Item Value Reference Range Interpretation Comments GLUBED (test code = 136 MG/DL 70-110 H Performe d by certified GLUBED) rail operator at [facility] [id number] 16:58:00 Test Item Value Reference Range Interpretation Comments GLUBED (test code = 112 MG/DL 70-110 H Performe d by certified GLUBED) rail operator at [facility] - XR CHEST 2 [id number] 12:43:00 [facility] : 1945 Sex: M FAX: Thad Christianson NP [phone] [place]: St: [facility] FAX: [place] I [phone] Name: LOUIS PRITCHARD [facility] : 1945 Age/S: 75/M [address] [place] [address] Unit #: [id number] Loc: [place] [address] Phys: Thad Christianson NP Acct: [id number] Dis Date: Status: ADM IN PHONE #: [phone] Exam Date: 04/22/2020 1221 FAX #: [phone]: adm EXAMS: CPT CODE: [id number] XR CHEST 2 V 00478 PROCEDURE: Chest Radiograph. Clinical Indication: Severe aortic stenosis. Comparison: None. FINDINGS: The chest shows minimal vascular congestion. There is subsegmental atelectasis at the left lung base. There is a very small right pleural effusion. The cardiac silhouette is enlarged. Previous midline sternotomy. Degenerative change involves the thoracic spine. IMPRESSION: 1. Cardiomegaly with minimal vascular congestion and a very small right pleural effusion. 2. Minimal subsegmental atelectasis at the left lung base. SL: OCO-H at 1243 Reported and signed by: Reuben Durbin M.D. CC: Thad Christianson NP; [place] MD Technologist: RT Misty(R) Trnscrd Date/Time/By: 04/22/2020 (1101) : By: Nataly Orig Print D/T: S: 04/22/2020 (6875) PAGE 1 Signed [id number] 12:01:00 Test Item Value Reference Range Interpretation Comments HGBA1C% (test code = HGBA1C%) 5.3 %A1C 4.8-6.0 N BASIC METABOLIC [id number] 10:50:00 Test Item Value Reference Range Interpretation Comments SODIUM (test code = NA) 137 mEq/L 134-147 N POTASSIUM (test code = 4.1 mEq/L 3.4-5.0 N K) CHLORIDE (test code = 99 mEq/L 100-108 L CL) CARBON DIOXIDE (test 28 mEq/l 21-33 N code = CO2) ANION GAP (test code = 14 0-20 N GAP) GLUCOSE (test code = 141 mg/dL 70-110 H GLU) BLOOD UREA NITROGEN 31 mg/dL 7-18 H (test code = BUN) GLOMERULAR FILTRATION 12.8 70-80 L Units of measure = RATE (test code = GFR) ml/mi n/1.73 m2 CREATININE (test code = 4.5 mg/dL 0.6-1.3 H CREAT) CALCIUM (test code = 9.9 mg/dL 8.0-10.5 N CA) HEPATIC FUNCTION [id number] 10:50:00 Test Item Value Reference Range Interpretation Comments TOTAL PROTEIN (test code = PROT) 6.9 g/dL 6.4-8.2 N ALBUMIN (test code = ALB) 3.80 g/dL 3.4-5.0 N BILIRUBIN TOTAL (test code = 0.90 mg/dL 0.0-1.0 N BILT) BILIRUBIN DIRECT (test code = 0.50 MG/DL 0.0-0.30 H BILD) BILIRUBIN INDIRECT (test code = 0.40 MG/DL BILIND) SGOT/AST (test code = AST) 129 IUnit/L 15-37 H SGPT/ALT (test code = ALT) 358 IUnit/L 30-65 H ALKALINE PHOSPHATASE TOTAL (test 179 IUnit/L 20-125 H code = ALKP) [id number] 10:50:00 Test Item Value Reference Range Interpretation Comments MAGNESIUM (test code = MAG) 2.29 mg/dL 1.80-2.40 N TSH REFLEX TO [id number] 10:50:00 Test Item Value Reference Range Interpretation Comments TSH REFLEX TO FT4 (test code = 0.82 IU/mL 0.42-5.47 N TSHREFLEX) CBC W/O [id number] 10:30:00 Test Item Value Reference Range Interpretation Comments WHITE BLOOD CELL (test code = 8.8 x10 3/uL 4.5-11.0 N WBC) RED BLOOD CELL (test code = 2.70 x10 6/uL 4.00-5.60 L RBC) HEMOGLOBIN (test code = HGB) 8.9 g/dL 12.5-16.9 L HEMATOCRIT (test code = HCT) 28.1 % 37.5-50.7 L MEAN CELL VOLUME (test code = 104.1 fL 81.0-99.0 H MCV) MEAN CELL HGB (test code = MCH) 33.0 pg 27.0-33.0 N MEAN CELL HGB CONCETRATION 31.7 g/dL 33.0-37.0 L (test code = MCHC) RED CELL DISTRIBUTION WIDTH CV 15.2 % 11.5-14.5 H (test code = RDW) RED CELL DISTRIBUTION WIDTH SD 54.3 fL 37.0-54.0 H (test code = RDW-SD) PLATELET COUNT (test code = 163 x10 3/uL 150-400 N PLT) MEAN PLATELET VOLUME (test code 11.1 fL 7.0-9.0 H = MPV) [id number] 06:52:00 Test Item Value Reference Range Interpretation Comments GLUBED (test code = 108 MG/DL 70-110 N Performe d by certified GLUBED) rail operator at [facility]
--- NOTE | 2020-07-02 15:48 | EDPHYS ---
Physician Documentation [facility] Name: Jodi Steve Age: 75 yrs Sex: Male : 1945 Arrival Date: 07/02/2020 Time: 15:20 Bed 18 Private MD: Franklin Corado ED Physician Nicholas Wagner HPI: 07/02 16:02 This 75 yrs old Male presents to ER via Wheelchair with complaints of Foot kb Pain - infection. 16:05 The patient presents with pain, that is acute. The complaints affect the right foot. kb Context: chronic wound, gangrene. Onset: The symptoms/episode began/occurred and became worse yesterday. Modifying factors: The symptoms are alleviated by nothing, the symptoms are aggravated by movement. Associated signs and symptoms: Pertinent positives: swelling, warmth. Severity of symptoms: At their worst the symptoms were moderate, severe, in the emergency department the symptoms are unchanged. The patient has experienced similar episodes in the past, chronically. The patient has been recently seen by a physician:. Pt has gangrene and osteomyelitis of right foot. Scheduled for amputation this week, but pain has been unbearable at home. Has been taking norco 10/325 and fentanyl patches without relief. Called Dr Corado and was sent to ER for admission for pain control. Historical: - Allergies: 15:26 No Known Allergies; jd3 - PMHx: 15:26 Diabetes - NIDDM; Hypertension; Renal Disease; jd3 - PSHx: 15:26 CABG; TAVR heart valve replacement; right below the knee amputation; jd3 - Immunization history:: Adult Immunizations up to date, Client reports receiving the 1st dose of the Covid vaccine. - Social history:: Smoking status: Patient/guardian denies using tobacco, but has a distant history of tobacco abuse. ROS: 15:59 Constitutional: Negative for fever, chills, and weight loss, Cardiovascular: Negative kb for chest pain, palpitations, and edema, Respiratory: Negative for shortness of breath, cough, wheezing, and pleuritic chest pain, Abdomen/GI: Negative for abdominal pain, nausea, vomiting, diarrhea, and constipation, Neuro: Negative for headache, weakness, numbness, tingling, and seizure. 15:59 MS/extremity: Positive for pain, swelling, tenderness, Right BKA; drainage and discoloration to left foot. Exam: 16:00 Constitutional: This is a well developed, well nourished patient who is awake, alert, kb and in no acute distress. Head/Face: Normocephalic, atraumatic. Respiratory: Respirations even and unlabored. No increased work of breathing, no retractions or nasal flaring. Neuro: Awake and alert, GCS 15, oriented to person, place, time, and situation. Moves all extremities. Normal gait. 16:00 Skin: swelling, discoloration and drainage to left foot. Right BKA with doe in place, well healed. Vital Signs: 15:26 BP 121 / 62; Pulse 87; Resp 17 S; Temp 97.3(TE); Pulse Ox 100% on R/A; Weight 67.13 kg jd3 (R); Height 5 ft. 4 in. (162.56 cm) (R); Pain 9/10; 16:30 BP 141 / 90; Pulse 73; Resp 17; Pulse Ox 99% ; bp 17:30 BP 115 / 41; Pulse 84; Resp 17; Pulse Ox 100% ; bp 17:59 BP 110 / 55; Pulse 80; Resp 17; Temp 97.8; Pulse Ox 100% ; bp 15:26 Body Mass Index 25.40 (67.13 kg, 162.56 cm) jd3 MDM: 15:38 Patient medically screened. kb 15:45 Data reviewed: vital signs, nurses notes. Data interpreted: Pulse oximetry: on room air kb is 100 %. Interpretation: normal. Counseling: I had a detailed discussion with the patient and/or guardian regarding: the historical points, exam findings, and any diagnostic results supporting the discharge/admit diagnosis, lab results, the need for further work-up and treatment in the hospital. Physician consultation: Franklin Corado MD was contacted at 15:45, regarding admission, patient's condition, and will see patient in ED, shortly. 07/02 15:45 Order name: Blood Culture Adult (2) kb 07/02 15:45 Order name: CBC with Diff kb 07/02 15:45 Order name: Basic Metabolic Panel; Complete Time: 17:22 kb 07/02 15:58 Order name: CORONAVIRUS (COVID-19) : Document "Date of Symptom Onset" if Symptomatic. kb 04/18 15:59 Order name: CORONAVIRUS [facility] 07/02 17:21 Order name: SARS-COV-2 RT PCR; Complete Time: 17:22 [facility] 07/02 15:45 Order name: IV Start; Complete Time: 16:30 kb Administered Medications: 16:00 Drug: Dilaudid (HYDROmorphone) 1 mg Route: IVP; Site: right antecubital; bp 18:00 Follow up: Response: Pain is decreased bp 16:00 Drug: Zofran (Ondansetron) 4 mg Route: IVP; Site: right antecubital; bp 18:00 Follow up: Response: No adverse reaction bp 16:20 Drug: Meropenem 1 grams Route: IV; Rate: calculated rate; Site: right antecubital; bp 18:00 Follow up: IV Status: Completed infusion; IV Intake: 100ml bp 16:45 Drug: vancoMYCIN 1 grams Route: IVPB; Infused Over: 2 hrs; Site: right antecubital; bp 18:00 Follow up: IV Status: Completed infusion; IV Intake: 250ml bp Disposition: 07/03 08:49 Co-signature as Attending Physician, Nicholas Wagner MD I agree with the assessment and daisy plan of care. Disposition: 07/02/20 15:47 Hospitalization ordered by Franklin Corado for Inpatient Admission. Preliminary diagnosis are Open wound of lower leg - left foot, Intractable pain. - Bed requested for Telemetry/MedSurg (Inpatient). - Status is Inpatient Admission. eb - Condition is Stable. - Problem is new. - Symptoms are unchanged. Signatures: Dispatcher [employer] [facility] Renetta Platt, BURR SANDER-C BURR SANDER-Nicholas Monreal MD MD cha Davies, Jonathon RN RN Kris Randle RN RN bp Botello, Elizabeth eb Corrections: (The following items were deleted from the chart) 07/02 15:48 15:47 Hospitalization Ordered by Franklin Corado MD for Inpatient Admission. Preliminary diagnosis is Open wound of lower leg - left foot. Bed requested for Telemetry/MedSurg (Inpatient). Status is Inpatient Admission. Condition is Stable. Problem is new. Symptoms are unchanged. kb 17:14 15:48 07/02/2020 15:47 Hospitalization Ordered by Franklin Corado MD for Inpatient eb Admission. Preliminary diagnosis is Open wound of lower leg - left foot; Intractable pain. Bed requested for Telemetry/MedSurg (Inpatient). Status is Inpatient Admission. Condition is Stable. Problem is new. Symptoms are unchanged. kb 18:54 17:14 07/02/2020 15:47 Hospitalization Ordered by Franklin Corado MD for Inpatient eb Admission. Preliminary diagnosis is Open wound of lower leg - left foot; Intractable pain. Bed requested for Telemetry/MedSurg (Inpatient). Status is Inpatient Admission. Condition is Stable. Problem is new. Symptoms are unchanged. eb
--- NOTE | 2020-07-02 15:48 | ER ---
Nurse's Notes [facility] Name: Jodi Steve Age: 75 yrs Sex: Male : 1945 Arrival Date: 07/02/2020 Time: 15:20 Bed 18 Private MD: Franklin Melgar Diagnosis: Open wound of lower leg-left foot;Intractable pain Presentation: 07/02 15:23 Chief complaint: Patient's son or daughter states: adult child: "he foot in infected jd3 and it is not getting any better. the pain is not controlled ether with the pain medications that were prescribed as well.". Coronavirus screen: At this time, the client does not indicate any symptoms associated with coronavirus-19. Ebola Screen: Patient negative for fever greater than or equal to 101.5 degrees Fahrenheit, and additional compatible Ebola Virus Disease symptoms. Initial Sepsis Screen: Does the patient meet any 2 criteria? No. Patient's initial sepsis screen is negative. Does the patient have a suspected source of infection? No. Patient's initial sepsis screen is negative. Risk Assessment: Do you want to hurt yourself or someone else? Patient reports no desire to harm self or others. Onset of symptoms was May 01, 2020. 15:23 Method Of Arrival: Wheelchair jd3 15:23 Acuity: ELYSE 3 jd3 Triage Assessment: 15:30 General: Appears distressed, uncomfortable, Behavior is cooperative, appropriate for bp age, anxious. Pain: Complains of pain in left foot. EENT: No deficits noted. Neuro: No deficits noted. Cardiovascular: No deficits noted. Respiratory: No deficits noted. GI: No signs and/or symptoms were reported involving the gastrointestinal system. : No signs and/or symptoms were reported regarding the genitourinary system. Derm: No deficits noted. Musculoskeletal: Swelling present in left foot. Historical: - Allergies: 15:26 No Known Allergies; jd3 - PMHx: 15:26 Diabetes - NIDDM; Hypertension; Renal Disease; jd3 - PSHx: 15:26 CABG; TAVR heart valve replacement; right below the knee amputation; jd3 - Immunization history:: Adult Immunizations up to date, Client reports receiving the 1st dose of the Covid vaccine. - Social history:: Smoking status: Patient/guardian denies using tobacco, but has a distant history of tobacco abuse. Screenin:30 Abuse screen: Denies threats or abuse. Denies injuries from another. Nutritional bp screening: No deficits noted. Tuberculosis screening: No symptoms or risk factors identified. Fall Risk None identified. Assessment: 15:30 General: SEE TRIAGE NOTE. bp 16:30 Reassessment: No changes from previously documented assessment. Patient and/or family bp updated on plan of care and expected duration. Pain level reassessed. ADMIT INITIATED. 17:30 Reassessment: No changes from previously documented assessment. Patient and/or family bp updated on plan of care and expected duration. Pain level reassessed. PT SEEN BY DR MELGAR. ADMIT IN PROCESS. 17:59 Reassessment: ADMIT COMPLETE, PT ASSIGNED RM 420. bp Vital Signs: 15:26 BP 121 / 62; Pulse 87; Resp 17 S; Temp 97.3(TE); Pulse Ox 100% on R/A; Weight 67.13 kg jd3 (R); Height 5 ft. 4 in. (162.56 cm) (R); Pain 9/10; 16:30 BP 141 / 90; Pulse 73; Resp 17; Pulse Ox 99% ; bp 17:30 BP 115 / 41; Pulse 84; Resp 17; Pulse Ox 100% ; bp 17:59 BP 110 / 55; Pulse 80; Resp 17; Temp 97.8; Pulse Ox 100% ; bp 15:26 Body Mass Index 25.40 (67.13 kg, 162.56 cm) jd3 ED Course: 15:20 Patient arrived in ED. as 15:21 Franklin Melgar MD is Private Physician. as 15:24 Triage completed. jd3 15:28 Arm band placed on. jd3 15:30 Patient has correct armband on for positive identification. Bed in low position. Call bp light in reach. Side rails up X2. Adult w/ patient. 15:38 Renetta Platt FNP-C is [facility]. kb 15:38 Nicholas Wagner MD is Attending Physician. kb 15:46 Franklin Melgar MD is Hospitalizing Provider. kb 15:48 Kris Corrales, JULIO is Primary Nurse. bp 16:00 Inserted saline lock: 20 gauge in right antecubital area, using aseptic technique. bp Blood collected. 17:59 No provider procedures requiring assistance completed. Patient admitted, IV remains in bp place. Administered Medications: 16:00 Drug: Dilaudid (HYDROmorphone) 1 mg Route: IVP; Site: right antecubital; bp 18:00 Follow up: Response: Pain is decreased bp 16:00 Drug: Zofran (Ondansetron) 4 mg Route: IVP; Site: right antecubital; bp 18:00 Follow up: Response: No adverse reaction bp 16:20 Drug: Meropenem 1 grams Route: IV; Rate: calculated rate; Site: right antecubital; bp 18:00 Follow up: IV Status: Completed infusion; IV Intake: 100ml bp 16:45 Drug: vancoMYCIN 1 grams Route: IVPB; Infused Over: 2 hrs; Site: right antecubital; bp 18:00 Follow up: IV Status: Completed infusion; IV Intake: 250ml bp Intake: 18:00 IV: 100ml; Total: 100ml. bp 18:00 IV: 250ml; Total: 350ml. bp Outcome: 15:47 Decision to Hospitalize by Provider. kb 17:59 Admitted to Med/surg accompanied by tech, family with patient, via stretcher, room 420, bp with chart, Report called to AVIS KIM 17:59 Condition: stable 17:59 Instructed on the need for admit. 18:54 Patient left the ED. eb Signatures: Renetta Platt, RESEARCH ASST-C [facility]-Nessa Branch Jonathon, RN RN jKris Russell RN RN Marizol Dobson
[2020-07-02] MEDS ORDERED: VANCOMYCIN/NS 1 gm 1 GM/250 ML BAG IVPB ONE (16:00)
[2020-07-02] MEDS ORDERED: ONDANSETRON 4 MG/2 ML VIAL ONE (16:14)
[2020-07-02] MEDS ORDERED: Meropenem 1 GM/100 ML BAG ONE (16:14)
[2020-07-02] MEDS ORDERED: HYDROMORPHONE HCL 1 MG/ML INJ ONE (16:14)
[2020-07-02] MEDS ORDERED: ONDANSETRON 4 MG (ODT) TAB PO PRN ×2 (16:35→17:00)
[2020-07-02] MEDS ORDERED: ONDANSETRON 4 MG/2 ML VIAL IV PRN (16:36)
--- NOTE | 2020-07-02 16:43 | P.HP ---
Certification for Inpatient Patient admitted to: Inpatient With expected LOS: >2 Midnights Patient will require the following post-hospital care: Halfway Practitioner: I am a practitioner with admitting privileges, knowledge of patient current condition, hospital course, and medical plan of care. Services: Services provided to patient in accordance with Admission requirements found in Title 42 Section 412.3 of the Code of Federal Regulations Patient History Date of Service: 07/02/20 Primary Care Provider: Mak Reason for admission: acute osteomyelitis of the left foot. Chronic PVD History of Present Illness: Patient is well known in the office. He has a history of diabetes, aortic stenosis, esrd. He has mik struggling with pvd for the past month. Recently had a bka of the right leg with Dr. Mosqueda. The patient was to have an amputation of the left 2nd and 3rd toes of the left toes this coming Friday. He has been having increasing pain in that foot. As well as darkening of the foot and lower leg. This past week I had increased his fentanyl from 50 to 75mcg. However the patient was still continuing to have worsening pain. Per the daughter it was not sudden. Just a gradual increase in the pain. She had called today. Pt was directed to the ER. I have seen him in the er. I had seen him in the office this past . His foot is much worse. Swollen with increasing ulcer. Will admit him for fluids and antibiotics. Allergies No Known Allergies Allergy (Verified 05/16/20 15:48) Home Medications: Aspirin [Santana Chewable] 81 mg PO DAILY 05/04/20 Carvedilol [Coreg] 1.56 mg PO BIDWM 05/04/20 Clopidogrel Bisulfate [Plavix] 75 mg PO DAILY 05/04/20 Furosemide [Lasix] 40 mg PO DAILY 05/04/20 Gabapentin 300 mg PO DAILY 05/04/20 Levothyroxine [Synthroid] 50 mcg PO [id number] 05/04/20 Pantoprazole [Protonix Tab] 40 mg PO DAILY 05/04/20 lisinopriL [Prinivil] 2.5 mg PO DAILY 05/04/20 Collagenase [Santyl Ointment] 15 gm TP DAILY #600 tube 05/09/20 Hydrocodone Bit/Acetaminophen [Hydrocodon-Acetaminophn 10-325] 1 tab PO Q6H PRN 05/16/20 Metformin ER [Glucophage ER*] 500 mg PO BEDTIME 05/30/20 Metoclopramide HCl [Reglan] 5 mg PO BREAKFAST 05/30/20 Ondansetron [Zofran] 8 mg PO Q6H PRN 05/30/20 Simethicone [Gas-X] 125 mg PO TID PRN 05/30/20 - Past Medical/Surgical History Diabetic: Yes -: Hypertension -: Renal dse -: NIDDM -: HD MWF -: CABG 2013 -: Vascular surgery 2018 -: TAVR Apr 2020 - Social History Alcohol use: No CD- Drugs: No Caffeine use: No Review of Systems 10-point ROS is otherwise unremarkable Musculoskeletal: Foot Pain (left foot) Integumentary: Other (gangrene of the left 2nd and 3rd toe. Swelling and discoloration of the left foot. ) Physical Examination - Physical Exam General: Alert, In no apparent distress HEENT: Atraumatic, PERRLA, Mucous membr. moist/pink, EOMI, Sclerae nonicteric Neck: Supple, 2+ carotid pulse no bruit, No LAD, Without JVD or thyroid abnormality Respiratory: Clear to auscultation bilaterally, Normal air movement Cardiovascular: Regular rate/rhythm, Normal S1 S2 Gastrointestinal: Normal bowel sounds, No tenderness Musculoskeletal: No warmth, Swelling, Tenderness, Other (gangrene) Integumentary: No rashes Neurological: Normal gait, Normal speech, Normal strength at 5/5 x4 extr, Normal tone, Normal affect Lymphatics: No axilla or inguinal lymphadenopathy Assessment and Plan - Problems (Diagnosis) (1) Foot osteomyelitis, left Current Visit: Yes Status: Acute Plan: will get cultures and start the patient on vancomycin and meropenem. Discussed the patient with Dr. Mosqueda. Possible amputation in the morning Qualifiers: Osteomyelitis type: other acute Qualified Code(s): M86.172 - Other acute osteomyelitis, left ankle and foot (2) Chronic CHF (congestive heart failure) Current Visit: No Status: Acute Plan: he is not fluid overloaded. Will need to be gently with hydration. Hold the amount of fluids he gets to a lt. Qualifiers: Heart failure type: systolic Qualified Code(s): I50.22 - Chronic systolic (congestive) heart failure (3) Gangrene associated with diabetes mellitus Current Visit: No Status: Acute Plan: Will see how much of the foot needs to be amputated. As well as how much the patient wishes. Will then consider sending him back to Dr. Valiente for revascularization (4) ESRD (end stage renal disease) on dialysis Current Visit: No Status: Chronic Plan: Will consult with Dr. Jackson his regular associate pastor Discharge Plan: LTAC Plan to discharge in: Greater than 2 days - Advance Directives Does patient have a Living Will: No Does patient have a Durable POA for Healthcare: No - Code Status/Comfort Care Code Status Assessed: No Code Status: Full Code Physician Review: Patient Assessed, Agree with Above Assessment and Plan Critical Care: No Time Spent Managing Pts Care (In Minutes): 75
[2020-07-02 16:48] LABS: Absolute Lymphocytes (CBC) 0.6 K/uL (0.7-4.9); Basophils % 0.3 % (0-1.3); Hematocrit 26.9 % (39.6-49.0); Lymphocytes % 4.3 % (15.3-44.8); MPV 8.3 fL (7.6-11.3); RBC Red Blood Cell Count 2.89 M/uL (4.33-5.43)
[2020-07-02] MEDS ORDERED: D50W 25 GM/50 ML SYRINGE IV PRN (19:48)
[2020-07-02] MEDS ORDERED: NA CHLORIDE 0.9% 1,000 ML IV SCH (19:48)
[2020-07-02] MEDS ORDERED: GLUCAGON 1 MG/VIAL IM PRN (19:48)
[2020-07-02 20:34] LABS: Blood Morphology Comment NOTED (NOT SEEN); Platelet Estimate DECR; Poikilocytosis 1+; White Blood Cell Scan OK (OK)
[2020-07-02] MEDS: INSULIN -REGULAR HUMAN 50 UNIT/0.5 ML ML SQ SCH (21:00)
[2020-07-02] MEDS ORDERED: HYDROCODONE/APAP 10/325 TAB PO PRN (21:12)
[2020-07-02] MEDS: carvediloL 3.125 MG TAB PO SCH (23:26)
[2020-07-03 00:59] VITALS: BMI 23.3
[2020-07-03] MEDS: PANTOPRAZOLE 40MG TABLET PO SCH (06:00)
[2020-07-03] MEDS: LEVOTHYROXINE SOD 0.05 MG TABLET PO SCH (06:00)
[2020-07-03 06:04] LABS: Absolute Lymphocytes (CBC) 0.6 K/uL (0.7-4.9); Basophils % 0.1 % (0-1.3); Hematocrit 25.7 % (39.6-49.0); Lymphocytes % 4.3 % (15.3-44.8); MPV 8.2 fL (7.6-11.3); RBC Red Blood Cell Count 2.79 M/uL (4.33-5.43)
[2020-07-03 07:11] LABS: Thyroid Stimulating Hormone 4.9 uIU/mL (0.360-3.740)
[2020-07-03] MEDS: INSULIN -REGULAR HUMAN 50 UNIT/0.5 ML ML SQ SCH ×4 (07:30→21:00)
[2020-07-03] MEDS: HYDROMORPHONE HCL 2 MG/ML inj IV PRN ×3 (07:59→21:19)
[2020-07-03] MEDS: carvediloL 3.125 MG TAB PO SCH ×2 (08:00→16:40)
[2020-07-03] MEDS: GABAPENTIN 300 MG CAP PO SCH (08:00)
--- NOTE | 2020-07-03 08:05 | P.PN ---
Subjective Date of Service: 07/03/20 Primary Care Provider: Mak Chief Complaint: acute osteomyelitis of the left foot. Chronic PVD Subjective: No new changes Review of Systems 10-point ROS is otherwise unremarkable Musculoskeletal: Foot Pain Physical Examination - Vital Signs Temperature: 96.8 F Blood Pressure: 145/67 Pulse: 89 Respirations: 16 Pulse Ox (%): 98 - Physical Exam General: Alert, In no apparent distress HEENT: Atraumatic, PERRLA, EOMI Neck: Supple, JVD not distended Respiratory: Clear to auscultation bilaterally, Normal air movement Cardiovascular: Regular rate/rhythm, Normal S1 S2 Gastrointestinal: Normal bowel sounds, No tenderness Musculoskeletal: Swelling (left foot), Tenderness, Warmth Integumentary: No rashes Neurological: Normal speech, Normal tone, Normal affect Lymphatics: No axilla or inguinal lymphadenopathy Assessment & Plan - Problems (Diagnosis) (1) Foot osteomyelitis, left Current Visit: Yes Status: Acute Plan: will get cultures and start the patient on vancomycin and meropenem. Discussed the patient with Dr. Mosqueda. Possible amputation in the morning 07/03 Possible surgery today Qualifiers: Osteomyelitis type: other acute Qualified Code(s): M86.172 - Other acute osteomyelitis, left ankle and foot (2) Chronic CHF (congestive heart failure) Current Visit: No Status: Acute Plan: he is not fluid overloaded. Will need to be gently with hydration. Hold the amount of fluids he gets to a lt. Qualifiers: Heart failure type: systolic Qualified Code(s): I50.22 - Chronic systolic (congestive) heart failure (3) Gangrene associated with diabetes mellitus Current Visit: No Status: Acute Plan: Will see how much of the foot needs to be amputated. As well as how much the patient wishes. Will then consider sending him back to Dr. Valiente for revascularization (4) ESRD (end stage renal disease) on dialysis Current Visit: No Status: Chronic Plan: Will consult with Dr. Jackson his regular lamp tester and inspector Discharge Plan: Home - Code Status/Comfort Care Code Status Assessed: No Physician Review: Patient Assessed, Agree with Above Assessment and Plan Critical Care: No Time Spent Managing Pts Care (In Minutes): 20
[2020-07-03 10:45] LABS: Potassium 5.4 mmol/L (3.5-5.1)
[2020-07-03] MEDS ORDERED: LACTULOSE 20 GM/30 ML UCUP PO ONE (12:12)
--- NOTE | 2020-07-03 14:54 | CON ---
Date of Consultation: 07/03/2020 History Of Present Illness: Mr. Steve is a 75-year-old patient, known by us in the past since n ot too long ago we did an amputation of his right leg due to gangrene. Now, he comes with new findin gs on the left side. First, he started with 2 toes with gangrene and then he developed into gangrene of the entire foot. He has multiple medical problems including diabetes, aortic stenosis, end-stage renal disease on hemodialysis, peripheral vascular disease. The primary doctor has been trying to s ee if we can save the left foot, but it is progressing to the point that will need more. We explaine d to him again like a few days ago about the need of amputation of that area. He only gave his conse nt for second and third toe, although the disease is so severe, most likely that will not heal. Allergies: NONE. Medications: Reviewed. Past Medical History: As above. Social History: He does not drink alcohol. Review of Systems: As above. Ten point otherwise unremarkable. Physical Examination: General: The patient is awake, alert. HEENT: Pupils equal, reactive. Anicteric. Neck: Supple. Chest: Clear. Abdomen: Soft and depressible. Extremities: The patient has intact right below-knee amputation, looks good. Flaps are 100%. On th e left foot partially is the opposite, the second and third toe shows gangrene and also gangrene of t he metatarsal region. Some pain associated with it. Laboratory Data: Blood work review shows WBC count of 14 with hemoglobin of 8.1 and creatinine of 6, potassium 5.4. Assessment: A 75-year-old patient with gangrenous changes in the left foot. We explained to him dif ferent options. We even explained to him also the left below-knee amputation. He is thinking about it. The patient was tentatively booked in OR, but the renal doctor has not been able to clear the pa tient yet, so they want us to hold the surgery. He understands now that he has a time to make the de cision between do a definitive treatment in the left below-knee versus just removing toes at the time . We understand that even below-knee amputation may not heal properly, may need higher but at least have a better chance and just an amputation of the toes. The benefits, alternatives, and risks were fully explained to the patient, which include, but not limited to infection, bleeding, damage to aicha cent structures, anesthesia complication, flap failure, PR, and even . He also understands this may not relieve any symptoms. He might need more than one surgical intervention. We are waiting fo r his final consent and is still not really clear yet. CHAZ/IMER Voice ID: [id number] Report ID: [id number]
[2020-07-03 17:23] LABS: Potassium 4.3 mmol/L (3.5-5.1)
--- NOTE | 2020-07-03 21:21 | CON ---
Date of Consultation: 07/03/2020 Chief Complaint: End-stage renal disease, hyperkalemia, osteomyelitis acute of the left foot. History Of Present Illness: The patient has chronic peripheral vascular disease. He has multiple me dical problems including history of diabetes mellitus, aortic stenosis, diabetic kidney disease, dion pheral neuropathy, diabetic foot infection. He recently had a BKA done to the right leg because of o steomyelitis and gangrene. The patient was to have amputation of the left second and third toe. Tod zabrina, he came to the hospital because of progressively worse foot pain. He denies fever or chills. Th e patient received pain control. He is complaining of constipation. Denies PND or orthopnea. Denie s melena or hematemesis. Review of Systems: Constitutional: Denies fever or chills. Eyes: Denies vision changes. Ears, Nose, Mouth, and Throat: Denies sore throat or earache. Respiratory: Denies PND or orthopnea. Cardiovascular: Denies chest pain or palpitation. GI: Denies nausea or vomiting. All other systems reviewed and all are negative. Past Medical History: Diabetes mellitus, hypertension, hyperlipidemia, end-stage renal disease, dion pheral vascular disease, anemia in CKD, peripheral neuropathy, TAVR in April 2020. Social History: Denies tobacco, alcohol, or illicit drugs. Physical Examination: General: The patient is awake, alert, follows commands. Eyes: Anicteric sclerae. EOMI. Ears, Nose, Mouth, and Throat: Oral mucosa moist. No pallor. Neck: Supple. No bruits. Lungs: Diminished breath sounds at bases. Heart: S1, S2. Abdomen: Soft, benign. Extremities: Dressing in place. Impression And Plan: 1.Foot osteomyelitis. The patient will start vancomycin and meropenem. The patient will be evaluat ed by surgical team for possible amputation. 2.Congestive heart failure. The patient will continue low-sodium diet and p.o. fluid restriction. 3.Hyperkalemia. The patient will have dialysis to control potassium level. 4.Gangrene associated with diabetic foot infection. Revascularization procedure will be reviewed [facility] cardiovascular team. 5.Anemia in chronic kidney disease. Continue CHRIS. EB/MODL Voice ID: [id number] Report ID: [id number]
[2020-07-04] MEDS: HYDROMORPHONE HCL 2 MG/ML inj IV PRN ×2 (04:10→09:02)
[2020-07-04 06:00] LABS: Absolute Lymphocytes (CBC) 1.9 K/uL (0.7-4.9); Basophils % 0.4 % (0-1.3); Hematocrit 28.2 % (39.6-49.0); RBC Red Blood Cell Count 3.05 M/uL (4.33-5.43)
[2020-07-04] MEDS: INSULIN -REGULAR HUMAN 50 UNIT/0.5 ML ML SQ SCH ×4 (07:30→21:00)
[2020-07-04] MEDS: carvediloL 3.125 MG TAB PO SCH ×2 (07:45→17:20)
[2020-07-04] MEDS: GABAPENTIN 300 MG CAP PO SCH (07:46)
[2020-07-04] MEDS: FENTANYL 75 MCG/PATCH TD SCH (07:47)
[2020-07-04] MEDS: LEVOTHYROXINE SOD 0.05 MG TABLET PO SCH (07:47)
[2020-07-04] MEDS: PANTOPRAZOLE 40MG TABLET PO SCH (07:47)
--- NOTE | 2020-07-04 09:57 | P.PN ---
Subjective Date of Service: 07/04/20 Primary Care Provider: Mak Chief Complaint: acute osteomyelitis of the left foot. Chronic PVD Underwent L BKA today. Physical Examination - Vital Signs Temperature: 97.2 F Blood Pressure: 157/70 Pulse: 103 Respirations: 18 Pulse Ox (%): 96 - Physical Exam General: In no apparent distress HEENT: Atraumatic, Normocephalic Neck: Supple Respiratory: Clear to auscultation bilaterally Cardiovascular: No rubs, No murmurs Gastrointestinal: Soft and benign, Non-distended Assessment And Plan - Plan # ESRD on HD MWF No acute indication for HD today Next HD tomorrow EDW: 60 kgs HD access: L arm AVF Monitor renal panel # L foot osteomyelitis On IV antibiotics Underwent L BKA on 07/04/20 # CHF Cont cardioprudent meds HD for volume control # Hyperkalemia Correction via HD & renal diet # Anemia Epo # CKD-MBD Monitor Ca & Phos Physician Review: Patient Assessed, Agree with Above Assessment and Plan
[2020-07-04] MEDS ORDERED: NA CHLORIDE 0.9% 500 ML ONE (11:06)
[2020-07-04] MEDS ORDERED: CIPROFLOXACIN 400mg IV 400 MG/200 ML BAG IV ONE (11:20)
[2020-07-04] MEDS ORDERED: AMPICILLIN SODIUM 2 GM in NA CHLORIDE 0.9% 100 ML IVPB SCH (12:00)
[2020-07-04] MEDS ORDERED: NS 0.9% VIAL 20 ML ONE (12:16)
[2020-07-04] MEDS ORDERED: FENTANYL CITR 100 MCG/2 ML ONE (12:16)
[2020-07-04] MEDS ORDERED: LIDOCAINE 1% MPF 5 ML VIAL ONE (12:16)
[2020-07-04] MEDS ORDERED: dexAMETHasone 10 MG/ML VIAL ONE (12:16)
[2020-07-04] MEDS ORDERED: MIDAZOLAM HCL 2 MG/2 ML INJ ONE (12:17)
[2020-07-04] MEDS ORDERED: propofoL 200 MG/20 ML VIAL IV ONE (13:00)
[2020-07-04] MEDS ORDERED: LIDOCAINE 2% MPF 5 ML VIAL ONE (13:00)
--- NOTE | 2020-07-04 13:42 | P.BOP ---
Preoperative diagnosis: left foot infected gangrene Postoperative diagnosis: same Primary procedure: Left BKA Stationary Equipment Mechanic: JAY MORGAN (RubinThierry) Estimated blood loss: <50cc Specimen: foot Findings: as above Anesthesia: General Complications: None Transferred to: Recovery Room Condition: Good
--- NOTE | 2020-07-04 15:02 | P.PN ---
Subjective Date of Service: 07/04/20 Primary Care Provider: Mak Chief Complaint: acute osteomyelitis of the left foot. Chronic PVD Subjective: New changes (patient post op after bka) Review of Systems is unable to be obtained Physical Examination - Vital Signs Temperature: 97.0 F Blood Pressure: 105/51 Pulse: 68 Respirations: 16 Pulse Ox (%): 96 - Physical Exam General: Alert, In no apparent distress HEENT: Atraumatic, PERRLA, EOMI Neck: Supple, JVD not distended Respiratory: Clear to auscultation bilaterally, Normal air movement Cardiovascular: Regular rate/rhythm, Normal S1 S2 Gastrointestinal: Normal bowel sounds, No tenderness Musculoskeletal: Other (s.p bka) Integumentary: No rashes Neurological: Normal speech, Normal tone, Normal affect Lymphatics: No axilla or inguinal lymphadenopathy Assessment & Plan - Problems (Diagnosis) (1) Foot osteomyelitis, left Current Visit: Yes Status: Acute Plan: will get cultures and start the patient on vancomycin and meropenem. Discussed the patient with Dr. Mosqueda. Possible amputation in the morning 07/04 s/p bka will consult pt and social media director for tranfer to in pt PT center. The patient family requested [facility] in [place]. Qualifiers: Osteomyelitis type: other acute Qualified Code(s): M86.172 - Other acute osteomyelitis, left ankle and foot (2) Chronic CHF (congestive heart failure) Current Visit: No Status: Acute Plan: he is not fluid overloaded. Will need to be gently with hydration. Hold the amount of fluids he gets to a lt. Qualifiers: Heart failure type: systolic Qualified Code(s): I50.22 - Chronic systolic (congestive) heart failure (3) Gangrene associated with diabetes mellitus Current Visit: No Status: Acute Plan: Will see how much of the foot needs to be amputated. As well as how much the patient wishes. Will then consider sending him back to Dr. Valiente for revascularization (4) ESRD (end stage renal disease) on dialysis Current Visit: No Status: Chronic Plan: Will consult with Dr. Jackson his regular attendance clerk Discharge Plan: Home - Code Status/Comfort Care Code Status Assessed: No Physician Review: Patient Assessed, Agree with Above Assessment and Plan Critical Care: No Time Spent Managing Pts Care (In Minutes): 20
[2020-07-04] MEDS ORDERED: FLUMAZENIL 0.1 MG/ML (5 mL VIAL) IV ONE (15:24)
[2020-07-04 16:47] LABS: Potassium 4.5 mmol/L (3.5-5.1)
[2020-07-04] MEDS: Ciprofloxacin 200mg IV 200 MG/100 ML IV.SOLN. IV SCH (20:06)
[2020-07-04] MEDS ORDERED: CIPROFLOXACIN 400mg IV 400 MG/200 ML BAG IV SCH (21:00)
[2020-07-05] MEDS: PANTOPRAZOLE 40MG TABLET PO SCH (05:18)
[2020-07-05] MEDS: LEVOTHYROXINE SOD 0.05 MG TABLET PO SCH (05:18)
[2020-07-05 06:28] LABS: Absolute Lymphocytes (CBC) 0.5 K/uL (0.7-4.9); Basophils % 0.4 % (0-1.3); Hematocrit 25.7 % (39.6-49.0); Lymphocytes % 7.7 % (15.3-44.8); MPV 8.5 fL (7.6-11.3)
[2020-07-05] MEDS: INSULIN -REGULAR HUMAN 50 UNIT/0.5 ML ML SQ SCH ×4 (07:30→21:00)
[2020-07-05] MEDS ORDERED: FENTANYL 75 MCG/PATCH TD SCH (09:00)
--- NOTE | 2020-07-05 09:06 | P.PN ---
Subjective Date of Service: 07/05/20 Primary Care Provider: Mak Chief Complaint: acute osteomyelitis of the left foot. Chronic PVD Patient is in dialysis. He is upset he lost his leg. Which is understandable Review of Systems 10-point ROS is otherwise unremarkable Physical Examination - Vital Signs Temperature: 97.3 F Blood Pressure: 131/62 Pulse: 91 Respirations: 16 Pulse Ox (%): 100 - Physical Exam General: Alert, In no apparent distress HEENT: Atraumatic, PERRLA, EOMI Neck: Supple, JVD not distended Respiratory: Clear to auscultation bilaterally, Normal air movement Cardiovascular: Regular rate/rhythm, Normal S1 S2 Gastrointestinal: Normal bowel sounds, No tenderness Musculoskeletal: No tenderness Integumentary: No rashes Neurological: Normal speech, Normal tone, Normal affect Lymphatics: No axilla or inguinal lymphadenopathy Assessment & Plan - Problems (Diagnosis) (1) Foot osteomyelitis, left Current Visit: Yes Status: Acute Plan: will get cultures and start the patient on vancomycin and meropenem. Discussed the patient with Dr. Mosqueda. Possible amputation in the morning 07/04 s/p bka will consult pt and director social for tranfer to in pt PT center. The patient family requested [facility] in [place]. Qualifiers: Osteomyelitis type: other acute Qualified Code(s): M86.172 - Other acute osteomyelitis, left ankle and foot (2) Chronic CHF (congestive heart failure) Current Visit: No Status: Acute Plan: he is not fluid overloaded. Will need to be gently with hydration. Hold the amount of fluids he gets to a lt. Qualifiers: Heart failure type: systolic Qualified Code(s): I50.22 - Chronic systolic (congestive) heart failure (3) Gangrene associated with diabetes mellitus Current Visit: No Status: Acute Plan: Will see how much of the foot needs to be amputated. As well as how much the patient wishes. Will then consider sending him back to Dr. Valiente for revascularization (4) ESRD (end stage renal disease) on dialysis Current Visit: No Status: Chronic Plan: Will consult with Dr. Jackson his regular hydrogen plant operator Discharge Plan: LTAC Plan to discharge in: 48 Hours - Code Status/Comfort Care Code Status Assessed: No Physician Review: Patient Assessed, Agree with Above Assessment and Plan Critical Care: No Time Spent Managing Pts Care (In Minutes): 20
[2020-07-05] MEDS: EPOETIN 4,000 UNIT/ML VIAL IV SCH (10:45)
[2020-07-05] MEDS: carvediloL 3.125 MG TAB PO SCH ×2 (12:45→18:03)
[2020-07-05] MEDS: GABAPENTIN 300 MG CAP PO SCH (12:47)
[2020-07-05] MEDS: Ciprofloxacin 200mg IV 200 MG/100 ML IV.SOLN. IV SCH ×2 (12:48→21:00)
--- NOTE | 2020-07-05 13:10 | PN ---
Date of Progress Note: 07/05/2020 Subjective: Status post amputation of below-knee, left side. The patient is doing better. More mary ke, more alert, more talkative. Currently in dialysis. Objective: Chest: Clear. Abdomen: Soft and depressible. Extremities: Intact surgical site. ROSALIO drain serosanguineous. Laboratory Data: Blood work was reviewed. WBC count came down to normal. Plan: Continue offloading both sides, both stumps. Continue service by the primary doctor. PT cons ult for mobilization. HM/MODL Voice ID: [id number] Report ID: [id number]
--- NOTE | 2020-07-05 14:04 | PN ---
Date of Progress Note: 07/05/2020 Subjective: The patient was admitted with gangrenous toe. The patient undergone below-knee amputation on the left. Physical Examination: Vital Signs: Blood pressure 135/79, pulse of 104, afebrile. Chest: Clear to auscultation. Heart: S1, S2. Regular. Abdomen: Soft, nontender. Extremity: Bilateral below-knee amputations. Neuro: Alert. No focality. Laboratory Data: H and H 8.2/25.7. Sodium 136, potassium 4.5, bicarb 27, BUN 32, creatinine 4.1. Assessment And Plan: 1. End-stage renal disease. Continue dialysis Friday, Friday, Friday. 2. Secondary hyperparathyroidism, stable. 3. Anemia of chronic kidney disease. We will resume CHRIS. 4. Hyponatremia, going to be corrected with dialysis. 5. Diabetes, as by primary. 6. Peripheral vascular disease. Resume aspirin and Plavix. Time spent discussing with the patient, examining the patient, [id number] with the patient, placing orders, discussing the case with our steam meter reader including nursing, discussing the case with the other subspecialty including Cardiology and hospitalist 35 minutes. BERNABE Voice ID: [id number] Report ID: [id number] AMRIK
[2020-07-05 17:10] LABS: Potassium 3.7 mmol/L (3.5-5.1)
--- NOTE | 2020-07-05 20:32 | OP ---
Date of Procedure: 07/04/2020 Surgeon: Brown Mosqueda MD Patient Escort: Katiuska Hankins. Preoperative Diagnosis: Left foot infected gangrene. Postoperative Diagnosis: Left foot infected gangrene. Procedure: Left below-knee amputation. Estimated Blood Loss: Less than 50 mL. Specimen: Foot. Finding: Gangrenous foot. Anesthesia: General plus local. Indication: This is the case of a male, who comes to us with a gangrenous foot. We know him from e past since we have amputation last month of the opposite leg. At this time, he started developing gangrenous changes and progressing so he decided to do the amputation. The benefits, alternatives, a nd risks of left below-knee were fully explained to the patient, which include, but not limited to in fection, bleeding, damage to adjacent structures, anesthesia complication, failure of the flaps, SC, and even . He also understands this may not relieve any symptoms. He might need more than one surgical intervention. He understood, signed a consent. Procedure In Detail: The patient was brought to the operating room, placed in supine position. Anes thesia was done without complication. A time-out was called. The patient was placed in supine posit ion. The area was prepped and draped in a sterile fashion. Anterior and posterior skin incisions we re outlined with the help of a marking pen. Then, after that, we proceeded to use knife to make an i ncision about 4 fingerbreadths below the tibial tuberosity and extended medially and laterally to the edges of the gastrocnemius muscle. The distal skin incision was made about 12 cm creating the poste rior flap. The skin and subcutaneous tissue were incised with Bovie cauterizer. The fascia was iden tified. Saphenous veins were identified and ligated. The fascia and muscle were divided using Bovie cauterizer at the level of the anterior skin incision. The muscles of the anterior and lateral comp artments were divided exposing the anterior tibial vessels, ligated with 0 silk. Interosseous membra ne was carefully incised. Tibial periosteum was incised circumferentially. The periosteum elevator was used to strip the periosteum of the tibia for about 2 cm proximal. The tibia was then transected with the help of Gigli saw about 2 cm proximal to the skin incision with an anterior bevel. The fib breanna was then exposed, dissected circumferentially and transected about 2 cm proximal with a bone cutt er. The amputation was then completed with the Bovie cauterizer transecting the soleus muscle obliqu newton and the gastrocnemius muscle. The sharp bony edges were carefully filed. The fascia of the ante rior and posterior muscle flaps were approximated with #1 Vicryl interrupted. After that, the skin w as approximated with doe. Before that, we left a ROSALIO drain over the area exiting through 1 of the sites. The ROSALIO drain was secured in place with 3-0 nylon. The area was covered with sterile dressin gs. The patient tolerated the procedure well. The patient was sent to recovery in stable condition. CHAZ/IMER Voice ID: [id number] Report ID: [id number]
[2020-07-06] MEDS: LEVOTHYROXINE SOD 0.05 MG TABLET PO SCH (06:00)
[2020-07-06] MEDS: INSULIN -REGULAR HUMAN 50 UNIT/0.5 ML ML SQ SCH ×4 (07:30→21:50)
[2020-07-06] MEDS: ASPIRIN EC 81 MG TAB PO SCH (09:08)
[2020-07-06] MEDS: Ciprofloxacin 200mg IV 200 MG/100 ML IV.SOLN. IV SCH ×2 (09:08→21:46)
[2020-07-06] MEDS: carvediloL 3.125 MG TAB PO SCH ×2 (09:09→17:00)
[2020-07-06] MEDS: CLOPIDOGREL 75 MG TABLET PO SCH (09:09)
[2020-07-06] MEDS: GABAPENTIN 300 MG CAP PO SCH (09:09)
[2020-07-06] MEDS: PANTOPRAZOLE 40MG TABLET PO SCH (09:10)
--- NOTE | 2020-07-06 09:17 | P.PN ---
Subjective Date of Service: 07/06/20 Primary Care Provider: Mak Chief Complaint: acute osteomyelitis of the left foot. Chronic PVD Subjective: No new changes Patient in bed. He is calmer today. Review of Systems 10-point ROS is otherwise unremarkable Physical Examination - Vital Signs Temperature: 97.2 F Blood Pressure: 133/67 Pulse: 77 Respirations: 15 Pulse Ox (%): 100 - Physical Exam General: Alert, In no apparent distress HEENT: Atraumatic, PERRLA, EOMI Neck: Supple, JVD not distended Respiratory: Clear to auscultation bilaterally, Normal air movement Cardiovascular: Regular rate/rhythm, Normal S1 S2 Gastrointestinal: Normal bowel sounds, No tenderness Musculoskeletal: No tenderness Integumentary: No rashes Neurological: Normal speech, Normal tone, Normal affect Lymphatics: No axilla or inguinal lymphadenopathy Assessment & Plan - Problems (Diagnosis) (1) Foot osteomyelitis, left Current Visit: Yes Status: Acute Plan: will get cultures and start the patient on vancomycin and meropenem. Discussed the patient with Dr. Mosqueda. Possible amputation in the morning 07/06 Awaiting transfer to in patient rehab Qualifiers: Osteomyelitis type: other acute Qualified Code(s): M86.172 - Other acute osteomyelitis, left ankle and foot (2) Chronic CHF (congestive heart failure) Current Visit: No Status: Acute Plan: he is not fluid overloaded. Will need to be gently with hydration. Hold the amount of fluids he gets to a lt. Qualifiers: Heart failure type: systolic Qualified Code(s): I50.22 - Chronic systolic (congestive) heart failure (3) Gangrene associated with diabetes mellitus Current Visit: No Status: Acute Plan: Will see how much of the foot needs to be amputated. As well as how much the patient wishes. Will then consider sending him back to Dr. Valiente for revascularization (4) ESRD (end stage renal disease) on dialysis Current Visit: No Status: Chronic Plan: Will consult with Dr. Jackson his regular mergers and acquisitions associate Discharge Plan: LTAC Plan to discharge in: 24 Hours - Code Status/Comfort Care Code Status Assessed: No Physician Review: Patient Assessed, Agree with Above Assessment and Plan Critical Care: No Time Spent Managing Pts Care (In Minutes): 20
--- NOTE | 2020-07-06 11:01 | P.PN ---
Subjective Date of Service: 07/07/20 Primary Care Provider: Mak Chief Complaint: acute osteomyelitis of the left foot. Chronic PVD Subjective: No new changes Underwent L BKA today. Physical Examination - Vital Signs Temperature: 97.2 F Blood Pressure: 133/67 Pulse: 77 Respirations: 15 Pulse Ox (%): 100 - Physical Exam General: In no apparent distress HEENT: Atraumatic, Normocephalic Neck: Supple Respiratory: Clear to auscultation bilaterally Cardiovascular: Normal S1 S2 Gastrointestinal: Soft and benign, Non-distended Musculoskeletal: Other (+bilateral BKA) Neurological: Normal tone Assessment And Plan - Plan # ESRD on HD MWF Next HD tomorrow EDW: 60 kgs HD access: L arm AVF Renal diet Renal vitamin po daily Monitor renal panel # L foot osteomyelitis On IV antibiotics S/p L BKA on 07/04/20 # CHF Cont cardioprudent meds HD for volume control # Anemia Epo # CKD-MBD Monitor Ca & Phos Physician Review: Patient Assessed, Agree with Above Assessment and Plan
[2020-07-07] MEDS: LEVOTHYROXINE SOD 0.05 MG TABLET PO SCH (06:00)
[2020-07-07] MEDS: INSULIN -REGULAR HUMAN 50 UNIT/0.5 ML ML SQ SCH ×4 (07:30→20:12)
--- NOTE | 2020-07-07 08:13 | P.PN ---
Subjective Date of Service: 07/07/20 Primary Care Provider: Mak Chief Complaint: acute osteomyelitis of the left foot. Chronic PVD Review of Systems 10-point ROS is otherwise unremarkable Physical Examination - Vital Signs Temperature: 96.8 F Blood Pressure: 122/75 Pulse: 90 Respirations: 16 Pulse Ox (%): 99 - Physical Exam General: Alert, In no apparent distress HEENT: Atraumatic, PERRLA, EOMI Neck: Supple, JVD not distended Respiratory: Clear to auscultation bilaterally, Normal air movement Cardiovascular: Regular rate/rhythm, Normal S1 S2 Gastrointestinal: Normal bowel sounds, No tenderness Musculoskeletal: No tenderness Integumentary: No rashes Neurological: Normal speech, Normal tone, Normal affect Lymphatics: No axilla or inguinal lymphadenopathy Assessment & Plan - Problems (Diagnosis) (1) Foot osteomyelitis, left Current Visit: Yes Status: Acute Plan: will get cultures and start the patient on vancomycin and meropenem. Discussed the patient with Dr. Mosqueda. Possible amputation in the morning 07/07 Awaiting transfer to in patient rehab. continue PT Qualifiers: Osteomyelitis type: other acute Qualified Code(s): M86.172 - Other acute osteomyelitis, left ankle and foot (2) Chronic CHF (congestive heart failure) Current Visit: No Status: Acute Plan: he is not fluid overloaded. Will need to be gently with hydration. Hold the amount of fluids he gets to a lt. Qualifiers: Heart failure type: systolic Qualified Code(s): I50.22 - Chronic systolic (congestive) heart failure (3) Gangrene associated with diabetes mellitus Current Visit: No Status: Acute Plan: Will see how much of the foot needs to be amputated. As well as how much the patient wishes. Will then consider sending him back to Dr. Valiente for revascularization (4) ESRD (end stage renal disease) on dialysis Current Visit: No Status: Chronic Plan: Will consult with Dr. Jackson his regular duralumin mechanic Discharge Plan: LTAC Plan to discharge in: Greater than 2 days - Code Status/Comfort Care Code Status Assessed: No Physician Review: Patient Assessed, Agree with Above Assessment and Plan Critical Care: No Time Spent Managing Pts Care (In Minutes): 20
[2020-07-07] MEDS: Ciprofloxacin 200mg IV 200 MG/100 ML IV.SOLN. IV SCH ×2 (08:26→20:09)
[2020-07-07] MEDS: FENTANYL 75 MCG/PATCH TD SCH (08:27)
[2020-07-07] MEDS: ASPIRIN EC 81 MG TAB PO SCH (08:28)
[2020-07-07] MEDS: PANTOPRAZOLE 40MG TABLET PO SCH (08:28)
[2020-07-07] MEDS: CLOPIDOGREL 75 MG TABLET PO SCH (08:28)
[2020-07-07] MEDS: carvediloL 3.125 MG TAB PO SCH ×2 (08:28→17:45)
[2020-07-07] MEDS: GABAPENTIN 300 MG CAP PO SCH (08:28)
--- NOTE | 2020-07-07 09:43 | PN ---
Subjective: Status post amputation of left lower extremity. The patient is doing better, more energ ized, less pain, requiring hemodialysis. Surgical area is intact. Plan: Continue service with the primary doctor. If he gets release home, then follow up in my offic e or the wound healing center in 1 week. CHAZ/IMER Voice ID: [id number] Report ID: [id number]
[2020-07-07] MEDS: EPOETIN 4,000 UNIT/ML VIAL IV SCH (09:54)
--- NOTE | 2020-07-07 10:02 | P.PN ---
Subjective Date of Service: 07/07/20 Primary Care Provider: Mak Chief Complaint: acute osteomyelitis of the left foot. Chronic PVD Subjective: No new changes Underwent L BKA today. Physical Examination - Vital Signs Temperature: 97.2 F Blood Pressure: 133/67 Pulse: 77 Respirations: 15 Pulse Ox (%): 100 - Physical Exam General: In no apparent distress HEENT: Atraumatic, Normocephalic Neck: Supple Respiratory: Normal air movement Cardiovascular: Normal S1 S2 Gastrointestinal: Soft and benign, Non-distended Musculoskeletal: Other (+bilat BKA) Neurological: Normal speech, Normal tone Assessment And Plan - Plan # ESRD on HD MWF HD today EDW: 60 kgs HD access: L arm AVF Renal diet Renal vitamin po daily Monitor renal panel # L foot osteomyelitis On IV antibiotics S/p L BKA on 07/04/20 # CHF Cont cardioprudent meds HD for volume control # Anemia Epo # CKD-MBD Monitor Ca & Phos Physician Review: Patient Assessed, Agree with Above Assessment and Plan
--- NOTE | 2020-07-07 14:12 | P.DS ---
Admission Date: 07/02/20 Discharge Date: 07/07/20 Primary Care Provider: Mak Disposition: TRANSFER TO INPATIENT REHAB Discharge Condition: GOOD Reason for Admission: acute osteomyelitis of the left foot. Chronic PVD - Problems (1) Foot osteomyelitis, left Current Visit: Yes Status: Acute Qualifiers: Osteomyelitis type: other acute Qualified Code(s): M86.172 - Other acute osteomyelitis, left ankle and foot (2) Chronic CHF (congestive heart failure) Current Visit: No Status: Acute Qualifiers: Heart failure type: systolic Qualified Code(s): I50.22 - Chronic systolic (congestive) heart failure (3) Gangrene associated with diabetes mellitus Current Visit: No Status: Acute (4) ESRD (end stage renal disease) on dialysis Current Visit: No Status: Chronic Brief History of Present Illness: Patient is well known in the office. He has a history of diabetes, aortic stenosis, esrd. He has mik struggling with pvd for the past month. Recently had a bka of the right leg with Dr. Mosqueda. The patient was to have an amputation of the left 2nd and 3rd toes of the left toes this coming Friday. He has been having increasing pain in that foot. As well as darkening of the foot and lower leg. This past week I had increased his fentanyl from 50 to 75mcg. However the patient was still continuing to have worsening pain. Per the daughter it was not sudden. Just a gradual increase in the pain. She had called today. Pt was directed to the ER. I have seen him in the er. I had seen him in the office this past . His foot is much worse. Swollen with increasing ulcer. Will admit him for fluids and antibiotics. Hospital Course: Patient was admitted for worsening pain in her left foot. He had 2 darkened toes Was seen by Dr Mosqueda had a left sided bka. He had his dialysis run by Dr. Jackson. He is having difficullty. Has lost both of his feet in the space of a month. Will send him to [facility] as per the family request Vital Signs/Physical Exam: Temp Pulse Resp BP Pulse Ox 97.2 F 77 15 133/67 100 07/07/20 10:01 07/07/20 10:01 07/07/20 10:01 07/07/20 10:01 07/07/20 10:01 General: Alert, In no apparent distress HEENT: Atraumatic, PERRLA, EOMI Neck: Supple, JVD not distended Respiratory: Clear to auscultation bilaterally, Normal air movement Cardiovascular: Regular rate/rhythm, Normal S1 S2 Gastrointestinal: Normal bowel sounds, No tenderness Musculoskeletal: No tenderness, Other (bilateral bka's) Integumentary: No rashes Neurological: Normal speech, Normal tone, Normal affect Lymphatics: No axilla or inguinal lymphadenopathy Laboratory Data at Discharge: WBC 6.90 K/uL (4.3-10.9) D 07/05/20 05:54 Hgb 8.2 g/dL (13.6-17.9) L 07/05/20 05:54 Hct 25.7 % (39.6-49.0) L 07/05/20 05:54 Plt Count 158 K/uL (152-406) 07/05/20 05:54 Sodium 137 mmol/L (136-145) 07/05/20 16:42 Potassium 3.7 mmol/L (3.5-5.1) 07/05/20 16:42 BUN 26 mg/dL (7-18) H 07/05/20 16:42 Creatinine 2.75 mg/dL (0.55-1.3) H D 07/05/20 16:42 Glucose 175 mg/dL (74-106) H 07/05/20 16:42 Home Medications: Aspirin [Aspirin EC 81 MG] 81 mg PO DAILY 07/03/20 Carvedilol [Coreg] 0.5 tab PO BID 07/03/20 Clopidogrel Bisulfate [Clopidogrel] 75 mg PO DAILY 07/03/20 Furosemide 40 mg PO DAILY 07/03/20 Gabapentin 300 mg PO DAILY 07/03/20 Hydrocodone Bit/Acetaminophen [Hydrocodon-Acetaminoph 7.5-325] 1 tab PO Q6H PRN 07/03/20 Lactulose [Cephulac*] 30 ml PO BID 07/03/20 Levothyroxine Sodium [Levothyroxine] 150 mcg PO DAILY 07/03/20 Lisinopril [Zestril] 2.5 mg PO DAILY 07/03/20 ondansetron HCL [Ondansetron HCl] 8 mg PO Q6H PRN 07/03/20 Diet: Renal Followup: Franklin Corado MD [Primary Care Provider] - Physician Review: Patient Assessed, Agree with Above Assessment and Plan Time spent managing pt's care (in minutes): 40
[2020-07-07] MEDS: HYDROMORPHONE HCL 2 MG/ML inj IV PRN (15:23)
[2020-07-07 21:44] VITALS: O2SAT 100
[2020-07-08 00:07] VITALS: BP 150/70; TEMP 97.4
== END 2020-07-07 23:55 | DRG 239 ==
LOC: ER 15:18 → ERHOLD 15:51 → 4TH 18:21
PROVIDERS: ADMIT Internal Medicine; ATTEND Internal Medicine
PROC: 5A1D70Z Performance of Urinary Filtration, Intermittent, Less than 6 Hours Per Day (ICD-10-PCS; principal; 2020-07-03)
PROC: 0Y6J0Z3 Detachment at Left Lower Leg, Low, Open Approach (ICD-10-PCS; 2020-07-04)
DX: E11.52 Type 2 diabetes mellitus with diabetic peripheral angiopathy with gangrene (principal); N18.6 End stage renal disease; I96 Gangrene, not elsewhere classified; M86.172 Other acute osteomyelitis, left ankle and foot; I50.22 Chronic systolic (congestive) heart failure; I13.2 Hypertensive heart and chronic kidney disease with heart failure and with stage 5 chronic kidney disease, or end stage renal disease; N25.81 Secondary hyperparathyroidism of renal origin; E87.1 Hypo-osmolality and hyponatremia; E11.69 Type 2 diabetes mellitus with other specified complication; E11.22 Type 2 diabetes mellitus with diabetic chronic kidney disease; I35.0 Nonrheumatic aortic (valve) stenosis; D63.1 Anemia in chronic kidney disease; E87.5 Hyperkalemia; Z95.1 Presence of aortocoronary bypass graft; Z95.2 Presence of prosthetic heart valve; Z89.511 Acquired absence of right leg below knee; Z79.82 Long term (current) use of aspirin; Z79.02 Long term (current) use of antithrombotics/antiplatelets; Z79.890 Hormone replacement therapy; Z79.84 Long term (current) use of oral hypoglycemic drugs; Z79.899 Other long term (current) drug therapy; Z99.2 Dependence on renal dialysis; Z20.822 Contact with and (suspected) exposure to COVID-19
CPT/HCPCS: 36415; 80048; 82947; 84439; 84443; 85025; 87040; 88307; 90935; 96365; 96375; 97110; 97161; 97530; 97542; 99285; J0290; J0744; J1100; J1170; J2185; J2250; J2405; J2704; J3010; J3370; J7030; J7040; Q5105; U0003

== ENCOUNTER 2020-07-23 14:54 | Observation (INO) | payer OTHER ==
--- OUTSIDE RECORDS SUMMARY | 2020-07-23 14:57 | XMS REPORT | Continuity of Care Document ---
:1945 Author Organization [facility] t Address [address] [place] [address] Care Team Providers Name Role Phone Ruelas DO Attending Clinician RAMÓN Attending Clinician Unavailable Tono VELÁSQUEZ, S Attending Clinician Annie KIM Attending Clinician Erin VELÁSQUEZ Attending Clinician Brynn VELÁSQUEZ, F Attending Clinician Nighat VELÁSQUEZ, A Attending Clinician Claudio ACKERMAN Attending Clinician SLATE Admitting Clinician Unavailable Erin VELÁSQUEZ Admitting Clinician Payers Payer Name Policy Type Policy Number Effective Date Expiration Date S ource Problems This patient has no known problems. Allergies, Adverse Reactions, Alerts Allergy Allergy Status Severity Reaction(s) Onset Inactive Treating Comm ents Source Name Type Date Date Clinician NKA Allergy Active ENCCLR 3-10 16:48: 51 No Known DA Active U [facility] Allergie 2-06 Clear s 00:00: Rocha 00 [facility] Medications This patient has no known medications. Procedures Procedure Date / Time Performed Performing Clinician Sourc e [id number] 2020-07-10 00:00:00 ENCPL [id number] 2020-07-10 00:00:00 ENCPL Encounters Start End Encounter Admission Attending Care Care Encounter Source Date/Time Date/Time Type Type Clinicians Facility Department ID 2020-03-29 Outpatient MHSE CAR [id number] MH 10:59:41 [facility] 2020-06-26 2020-06-26 [id number] 09:15:00 11:28:00 Alberto Bonilla [id number] [place] 4.2.7.2.686 [place] [id number] 2020-05-24 2020-05-24 Outpatient READMISSIO RAMÓN, ENCCLR ENCCLR [id number] ENCCLR 00:00:00 00:00:00 N SANDRINE 2020-04-20 2020-04-20 Emergency [facility] [place] [id number] 02:44:00 05:48:00 Marky Bonilla [id number] [place] 4.2.7.2.686 [place] [id number] 2020-04-19 2020-04-19 Transition Kinjal Valecnia [id number] 00:00:00 00:00:00 of Care Donna Valencia [id number] [place] 4.2.7.2.686 [id number] 2020-04-09 2020-04-18 [facility] Alberto Ruelas [id number] 12:29:00 19:45:00 Encounter Alfredo Khan [id number] [facility] 4.2.7.2.686 Alfredo Khan [id number] [facility] 090 Alfredo Khan 2020-04-14 2020-04-14 Telephone Carolyn Disla [id number] 00:00:00 00:00:00 Terrence Long [id number] [place] [id number] 2020-03-16 2020-03-16 Outpatient MHSE CAR [id number] MH 09:06:00 09:06:00 [facility] 2020-03-14 2020-03-14 Office [facility] [id number] 09:32:42 10:30:27 Visit kraig, SPECIALTY 350.1.13.10 [facility] 4.2.7.2.686 [place] [facility] [id number] AZRAEva Romano [facility] Results Test Description Test Time Test Comments Results Result Comments Source GLUBED 2020-04-28 15:12:00 Test Item Value Reference Range Interpretation Comme nts GLUBED (test code = GLUBED) 140 MG/DL 70-110 H Performed by certified gas system operator at [facility] CBC W/AUTO [id number] 08:41:00 Test Item Value Reference Range Interpretation [...] (test code NO = MDIFF) BASIC METABOLIC [id number] 08:08:00 Test Item Value Reference Range Interpretation [...] code = 9.5 mg/dL 8.0-10.5 N CA) [id number] 08:08:00 Test Item Value Reference Range Interpretation Comments MAGNESIUM (test code = MAG) 2.83 mg/dL 1.80-2.40 H [id number] 06:49:00 Test Item Value Reference Range Interpretation Comments GLUBED (test code = 87 MG/DL 70-110 N Performe d by certified GLUBED) gas system operator at [facility] [id number] 11:37:00 Test Item Value Reference Range Interpretation Comments MAGNESIUM (test code = MAG) 1.57 mg/dL 1.80-2.40 L CBC W/AUTO [id number] 04:35:00 Test Item Value Reference Range Interpretation [...] MDIFF) CONSISTE NT WITH AUTO DIFF. PLT [id number] 04:35:00 Test Item Value Reference Range Interpretation Comments PLATELET ESTIMATE (test code 80-100 THOUSAND ADEQUATE = PLTEST) PLATELET MORPHOLOGY (test NORMAL code = PLTMORPH) CBC W/AUTO [id number] 04:34:00 Test Item Value Reference Range Interpretation [...] MDIFF) CONSISTE NT WITH AUTO DIFF. PLT [id number] 04:34:00 Test Item Value Reference Range Interpretation Comments PLATELET ESTIMATE (test code = THOUSAND ADEQUATE PLTEST) CBC W/AUTO [id number] 04:34:00 Test Item Value Reference Range Interpretation [...] MDIFF) CONSISTE NT WITH AUTO DIFF. PLT [id number] 04:34:00 Test Item Value Reference Range Interpretation Comments PLATELET ESTIMATE (test code = THOUSAND ADEQUATE PLTEST) BASIC METABOLIC [id number] 04:05:00 Test Item Value Reference Range Interpretation [...] 8.8 mg/dL 8.0-10.5 N CA) CBC W/AUTO [id number] 03:57:00 Test Item Value Reference Range Interpretation [...] MANUAL DIFF REQUIRED (test code = MDIFF) [id number] 20:52:00 Test Item Value Reference Range Interpretation Comments GLUBED (test code = 107 MG/DL 70-110 N Performe d by certified GLUBED) gas system operator at [facility] [id number] 15:17:00 Test Item Value Reference Range Interpretation Comments GLUBED (test code = 103 MG/DL 70-110 N Performe d by certified GLUBED) gas system operator at [facility] [id number] 14:34:00 Test Item Value Reference Range Interpretation Comments GLUBED (test code = 129 MG/DL 70-110 H Performe d by certified GLUBED) gas system operator at [facility] [id number] 13:50:00 Test Item Value Reference Range Interpretation Comments SODIUM (test code = NA/ABG) MEQ/L 134-147 [id number] 13:50:00 Test Item Value Reference Range Interpretation Comments POTASSIUM (test code = K/ABG) MEQ/L 3.4-5.0 CREATININE [id number] 13:50:00 Test Item Value Reference Range Interpretation Comments CREATININE ABG (test code = CREAABG) mg/dL 0.8-1.3 [id number] 13:50:00 Test Item Value Reference Range Interpretation Comments HEMOGLOBIN (test code = HGB/ABG) G/DL 12.5-16.9 [id number] 13:50:00 Test Item Value Reference Range Interpretation Comments HEMATOCRIT (test code = HCT/ABG) % 37.5-50.7 POC IONIZED [id number] 13:50:00 Test Item Value Reference Range Interpretation Comments POC IONIZED CALCIUM (test code = MMOL/L 1.12-1.32 POCCA) POC LACTIC [id number] 13:50:00 Test Item Value Reference Range Interpretation Comments POC LACTIC ACID (test code = POCLAC) mmol/l 0.9-1.7 POC [id number] 13:50:00 Test Item Value Reference Range Interpretation Comments POC GLUCOSE (test code = POCGLU) MG/DL 70-110 POC VENOUS BLOOD [id number] 13:50:00 Test Item Value Reference Range Interpretation Comments POC VENOUS BLOOD GAS PH (test 7.411 7.33-7.45 N code = POCPHV) POC VENOUS BLOOD GAS PCO2 (test 48.6 mmHg 43-47 H code = ZJZWIX1N) POC VENOUS BLOOD GAS PO2 (test 42.5 mmHG 10-50 N code = ZLGEK4Z) POC TCO2 VENOUS (test code = 32.4 PTWXKT7A) POC HCO3 VENOUS (test code = 30.9 MMOL/L 22-27 H ILIDTT7B) POC BASE EXCESS VENOUS (test code 5.6 MMOL/L -4.0-4.0 H = POCBEV) POC O2 SATURATION VENOUS (test 77.7 % 60-80 N code = GLUO9VI) [id number] 13:50:00 Test Item Value Reference Range Interpretation Comments CHLORIDE (test code = CL/VBG) MEQ/L [id number] 13:50:00 Test Item Value Reference Range Interpretation Comments SODIUM (test code = NA/ABG) 137 MEQ/L 134-147 N [id number] 13:50:00 Test Item Value Reference Range Interpretation Comments POTASSIUM (test code = K/ABG) MEQ/L 3.4-5.0 CREATININE [id number] 13:50:00 Test Item Value Reference Range Interpretation Comments CREATININE ABG (test code = CREAABG) mg/dL 0.8-1.3 [id number] 13:50:00 Test Item Value Reference Range Interpretation Comments HEMOGLOBIN (test code = HGB/ABG) G/DL 12.5-16.9 [id number] 13:50:00 Test Item Value Reference Range Interpretation Comments HEMATOCRIT (test code = HCT/ABG) % 37.5-50.7 POC IONIZED [id number] 13:50:00 Test Item Value Reference Range Interpretation Comments POC IONIZED CALCIUM (test code = MMOL/L 1.12-1.32 POCCA) POC LACTIC [id number] 13:50:00 Test Item Value Reference Range Interpretation Comments POC LACTIC ACID (test code = POCLAC) mmol/l 0.9-1.7 POC [id number] 13:50:00 Test Item Value Reference Range Interpretation Comments POC GLUCOSE (test code = POCGLU) MG/DL 70-110 POC VENOUS BLOOD [id number] 13:50:00 Test Item Value Reference Range Interpretation Comments POC VENOUS BLOOD GAS PH (test 7.411 7.33-7.45 N code = POCPHV) POC VENOUS BLOOD GAS PCO2 (test 48.6 mmHg 43-47 H code = WJUAFW8I) POC VENOUS BLOOD GAS PO2 (test 42.5 mmHG 10-50 N code = RIZPW1T) POC TCO2 VENOUS (test code = 32.4 QKWGEX0C) POC HCO3 VENOUS (test code = 30.9 MMOL/L 22-27 H LMQMKP8Q) POC BASE EXCESS VENOUS (test code 5.6 MMOL/L -4.0-4.0 H = POCBEV) POC O2 SATURATION VENOUS (test 77.7 % 60-80 N code = MEAD4ZD) [id number] 13:50:00 Test Item Value Reference Range Interpretation Comments CHLORIDE (test code = CL/VBG) MEQ/L [id number] 13:50:00 Test Item Value Reference Range Interpretation Comments SODIUM (test code = NA/ABG) 137 MEQ/L 134-147 N [id number] 13:50:00 Test Item Value Reference Range Interpretation Comments POTASSIUM (test code = K/ABG) 3.5 MEQ/L 3.4-5.0 N CREATININE [id number] 13:50:00 Test Item Value Reference Range Interpretation Comments CREATININE ABG (test code = CREAABG) mg/dL 0.8-1.3 [id number] 13:50:00 Test Item Value Reference Range Interpretation Comments HEMOGLOBIN (test code = HGB/ABG) G/DL 12.5-16.9 [id number] 13:50:00 Test Item Value Reference Range Interpretation Comments HEMATOCRIT (test code = HCT/ABG) % 37.5-50.7 POC IONIZED [id number] 13:50:00 Test Item Value Reference Range Interpretation Comments POC IONIZED CALCIUM (test code = MMOL/L 1.12-1.32 POCCA) POC LACTIC [id number] 13:50:00 Test Item Value Reference Range Interpretation Comments POC LACTIC ACID (test code = POCLAC) mmol/l 0.9-1.7 POC [id number] 13:50:00 Test Item Value Reference Range Interpretation Comments POC GLUCOSE (test code = POCGLU) MG/DL 70-110 POC VENOUS BLOOD [id number] 13:50:00 Test Item Value Reference Range Interpretation Comments POC VENOUS BLOOD GAS PH (test 7.411 7.33-7.45 N code = POCPHV) POC VENOUS BLOOD GAS PCO2 (test 48.6 mmHg 43-47 H code = MCSCBU9D) POC VENOUS BLOOD GAS PO2 (test 42.5 mmHG 10-50 N code = NAXEF3G) POC TCO2 VENOUS (test code = 32.4 ORGCKV0N) POC HCO3 VENOUS (test code = 30.9 MMOL/L 22-27 H WXOQQA1T) POC BASE EXCESS VENOUS (test code 5.6 MMOL/L -4.0-4.0 H = POCBEV) POC O2 SATURATION VENOUS (test 77.7 % 60-80 N code = VIIF6CD) [id number] 13:50:00 Test Item Value Reference Range Interpretation Comments CHLORIDE (test code = CL/VBG) MEQ/L [id number] 13:50:00 Test Item Value Reference Range Interpretation Comments SODIUM (test code = NA/ABG) 137 MEQ/L 134-147 N [id number] 13:50:00 Test Item Value Reference Range Interpretation Comments POTASSIUM (test code = K/ABG) 3.5 MEQ/L 3.4-5.0 N CREATININE [id number] 13:50:00 Test Item Value Reference Range Interpretation Comments CREATININE ABG (test code = CREAABG) mg/dL 0.8-1.3 [id number] 13:50:00 Test Item Value Reference Range Interpretation Comments HEMOGLOBIN (test code = HGB/ABG) G/DL 12.5-16.9 [id number] 13:50:00 Test Item Value Reference Range Interpretation Comments HEMATOCRIT (test code = HCT/ABG) % 37.5-50.7 POC IONIZED [id number] 13:50:00 Test Item Value Reference Range Interpretation Comments POC IONIZED CALCIUM (test code = 1.18 MMOL/L 1.12-1.32 N POCCA) POC LACTIC [id number] 13:50:00 Test Item Value Reference Range Interpretation Comments POC LACTIC ACID (test code = POCLAC) mmol/l 0.9-1.7 POC [id number] 13:50:00 Test Item Value Reference Range Interpretation Comments POC GLUCOSE (test code = POCGLU) MG/DL 70-110 POC VENOUS BLOOD [id number] 13:50:00 Test Item Value Reference Range Interpretation Comments POC VENOUS BLOOD GAS PH (test 7.411 7.33-7.45 N code = POCPHV) POC VENOUS BLOOD GAS PCO2 (test 48.6 mmHg 43-47 H code = DMGBXO4S) POC VENOUS BLOOD GAS PO2 (test 42.5 mmHG 10-50 N code = RNFUF0E) POC TCO2 VENOUS (test code = 32.4 SHUZXZ6J) POC HCO3 VENOUS (test code = 30.9 MMOL/L 22-27 H ERSHWG9C) POC BASE EXCESS VENOUS (test code 5.6 MMOL/L -4.0-4.0 H = POCBEV) POC O2 SATURATION VENOUS (test 77.7 % 60-80 N code = GHUG6JF) [id number] 13:50:00 Test Item Value Reference Range Interpretation Comments CHLORIDE (test code = CL/VBG) MEQ/L [id number] 13:50:00 Test Item Value Reference Range Interpretation Comments SODIUM (test code = NA/ABG) 137 MEQ/L 134-147 N [id number] 13:50:00 Test Item Value Reference Range Interpretation Comments POTASSIUM (test code = K/ABG) 3.5 MEQ/L 3.4-5.0 N CREATININE [id number] 13:50:00 Test Item Value Reference Range Interpretation Comments CREATININE ABG (test code = CREAABG) mg/dL 0.8-1.3 [id number] 13:50:00 Test Item Value Reference Range Interpretation Comments HEMOGLOBIN (test code = HGB/ABG) G/DL 12.5-16.9 [id number] 13:50:00 Test Item Value Reference Range Interpretation Comments HEMATOCRIT (test code = HCT/ABG) % 37.5-50.7 POC IONIZED [id number] 13:50:00 Test Item Value Reference Range Interpretation Comments POC IONIZED CALCIUM (test code = 1.18 MMOL/L 1.12-1.32 N POCCA) POC LACTIC [id number] 13:50:00 Test Item Value Reference Range Interpretation Comments POC LACTIC ACID (test code = POCLAC) mmol/l 0.9-1.7 POC [id number] 13:50:00 Test Item Value Reference Range Interpretation Comments POC GLUCOSE (test code = POCGLU) 101 MG/DL 70-110 N POC VENOUS BLOOD [id number] 13:50:00 Test Item Value Reference Range Interpretation Comments POC VENOUS BLOOD GAS PH (test 7.411 7.33-7.45 N code = POCPHV) POC VENOUS BLOOD GAS PCO2 (test 48.6 mmHg 43-47 H code = SHVVAI2I) POC VENOUS BLOOD GAS PO2 (test 42.5 mmHG 10-50 N code = IAQBN7A) POC TCO2 VENOUS (test code = 32.4 BQOHDU5K) POC HCO3 VENOUS (test code = 30.9 MMOL/L 22-27 H VRQLVQ0J) POC BASE EXCESS VENOUS (test code 5.6 MMOL/L -4.0-4.0 H = POCBEV) POC O2 SATURATION VENOUS (test 77.7 % 60-80 N code = BYJG9YE) [id number] 13:50:00 Test Item Value Reference Range Interpretation Comments CHLORIDE (test code = CL/VBG) MEQ/L [id number] 13:50:00 Test Item Value Reference Range Interpretation Comments SODIUM (test code = NA/ABG) 137 MEQ/L 134-147 N [id number] 13:50:00 Test Item Value Reference Range Interpretation Comments POTASSIUM (test code = K/ABG) 3.5 MEQ/L 3.4-5.0 N CREATININE [id number] 13:50:00 Test Item Value Reference Range Interpretation Comments CREATININE ABG (test code = CREAABG) mg/dL 0.8-1.3 [id number] 13:50:00 Test Item Value Reference Range Interpretation Comments HEMOGLOBIN (test code = HGB/ABG) G/DL 12.5-16.9 [id number] 13:50:00 Test Item Value Reference Range Interpretation Comments HEMATOCRIT (test code = HCT/ABG) % 37.5-50.7 POC IONIZED [id number] 13:50:00 Test Item Value Reference Range Interpretation Comments POC IONIZED CALCIUM (test code = 1.18 MMOL/L 1.12-1.32 N POCCA) POC LACTIC [id number] 13:50:00 Test Item Value Reference Range Interpretation Comments POC LACTIC ACID (test code = 0.5 mmol/l 0.9-1.7 L POCLAC) POC [id number] 13:50:00 Test Item Value Reference Range Interpretation Comments POC GLUCOSE (test code = POCGLU) 101 MG/DL 70-110 N POC VENOUS BLOOD [id number] 13:50:00 Test Item Value Reference Range Interpretation Comments POC VENOUS BLOOD GAS PH (test 7.411 7.33-7.45 N code = POCPHV) POC VENOUS BLOOD GAS PCO2 (test 48.6 mmHg 43-47 H code = PBSRYQ0P) POC VENOUS BLOOD GAS PO2 (test 42.5 mmHG 10-50 N code = TPWNR8A) POC TCO2 VENOUS (test code = 32.4 MQYTMZ2E) POC HCO3 VENOUS (test code = 30.9 MMOL/L 22-27 H UVYSNS2L) POC BASE EXCESS VENOUS (test code 5.6 MMOL/L -4.0-4.0 H = POCBEV) POC O2 SATURATION VENOUS (test 77.7 % 60-80 N code = DXEL6VF) [id number] 13:50:00 Test Item Value Reference Range Interpretation Comments CHLORIDE (test code = CL/VBG) MEQ/L [id number] 13:50:00 Test Item Value Reference Range Interpretation Comments SODIUM (test code = NA/ABG) 137 MEQ/L 134-147 N [id number] 13:50:00 Test Item Value Reference Range Interpretation Comments POTASSIUM (test code = K/ABG) 3.5 MEQ/L 3.4-5.0 N CREATININE [id number] 13:50:00 Test Item Value Reference Range Interpretation Comments CREATININE ABG (test code = CREAABG) mg/dL 0.8-1.3 [id number] 13:50:00 Test Item Value Reference Range Interpretation Comments HEMOGLOBIN (test code = HGB/ABG) G/DL 12.5-16.9 [id number] 13:50:00 Test Item Value Reference Range Interpretation Comments HEMATOCRIT (test code = HCT/ABG) 23 % 37.5-50.7 L POC IONIZED [id number] 13:50:00 Test Item Value Reference Range Interpretation Comments POC IONIZED CALCIUM (test code = 1.18 MMOL/L 1.12-1.32 N POCCA) POC LACTIC [id number] 13:50:00 Test Item Value Reference Range Interpretation Comments POC LACTIC ACID (test code = 0.5 mmol/l 0.9-1.7 L POCLAC) POC [id number] 13:50:00 Test Item Value Reference Range Interpretation Comments POC GLUCOSE (test code = POCGLU) 101 MG/DL 70-110 N POC VENOUS BLOOD [id number] 13:50:00 Test Item Value Reference Range Interpretation Comments POC VENOUS BLOOD GAS PH (test 7.411 7.33-7.45 N code = POCPHV) POC VENOUS BLOOD GAS PCO2 (test 48.6 mmHg 43-47 H code = BKLVFR0N) POC VENOUS BLOOD GAS PO2 (test 42.5 mmHG 10-50 N code = CMRNB5B) POC TCO2 VENOUS (test code = 32.4 ZVPAWS4S) POC HCO3 VENOUS (test code = 30.9 MMOL/L 22-27 H FDXCDA9D) POC BASE EXCESS VENOUS (test code 5.6 MMOL/L -4.0-4.0 H = POCBEV) POC O2 SATURATION VENOUS (test 77.7 % 60-80 N code = SHYC3IY) [id number] 13:50:00 Test Item Value Reference Range Interpretation Comments CHLORIDE (test code = CL/VBG) MEQ/L [id number] 13:50:00 Test Item Value Reference Range Interpretation Comments SODIUM (test code = NA/ABG) 137 MEQ/L 134-147 N [id number] 13:50:00 Test Item Value Reference Range Interpretation Comments POTASSIUM (test code = K/ABG) 3.5 MEQ/L 3.4-5.0 N CREATININE [id number] 13:50:00 Test Item Value Reference Range Interpretation Comments CREATININE ABG (test code = CREAABG) mg/dL 0.8-1.3 [id number] 13:50:00 Test Item Value Reference Range Interpretation Comments HEMOGLOBIN (test code = HGB/ABG) 7.8 G/DL 12.5-16.9 L [id number] 13:50:00 Test Item Value Reference Range Interpretation Comments HEMATOCRIT (test code = HCT/ABG) 23 % 37.5-50.7 L POC IONIZED [id number] 13:50:00 Test Item Value Reference Range Interpretation Comments POC IONIZED CALCIUM (test code = 1.18 MMOL/L 1.12-1.32 N POCCA) POC LACTIC [id number] 13:50:00 Test Item Value Reference Range Interpretation Comments POC LACTIC ACID (test code = 0.5 mmol/l 0.9-1.7 L POCLAC) POC [id number] 13:50:00 Test Item Value Reference Range Interpretation Comments POC GLUCOSE (test code = POCGLU) 101 MG/DL 70-110 N POC VENOUS BLOOD [id number] 13:50:00 Test Item Value Reference Range Interpretation Comments POC VENOUS BLOOD GAS PH (test 7.411 7.33-7.45 N code = POCPHV) POC VENOUS BLOOD GAS PCO2 (test 48.6 mmHg 43-47 H code = EDBHFO4B) POC VENOUS BLOOD GAS PO2 (test 42.5 mmHG 10-50 N code = TJXKV3C) POC TCO2 VENOUS (test code = 32.4 LMFBJF9B) POC HCO3 VENOUS (test code = 30.9 MMOL/L 22-27 H JMYGTB7D) POC BASE EXCESS VENOUS (test code 5.6 MMOL/L -4.0-4.0 H = POCBEV) POC O2 SATURATION VENOUS (test 77.7 % 60-80 N code = IXVE9BP) [id number] 13:50:00 Test Item Value Reference Range Interpretation Comments CHLORIDE (test code = CL/VBG) MEQ/L [id number] 13:50:00 Test Item Value Reference Range Interpretation Comments SODIUM (test code = NA/ABG) 137 MEQ/L 134-147 N [id number] 13:50:00 Test Item Value Reference Range Interpretation Comments POTASSIUM (test code = K/ABG) 3.5 MEQ/L 3.4-5.0 N CREATININE [id number] 13:50:00 Test Item Value Reference Range Interpretation Comments CREATININE ABG (test code = CREAABG) mg/dL 0.8-1.3 [id number] 13:50:00 Test Item Value Reference Range Interpretation Comments HEMOGLOBIN (test code = HGB/ABG) 7.8 G/DL 12.5-16.9 L [id number] 13:50:00 Test Item Value Reference Range Interpretation Comments HEMATOCRIT (test code = HCT/ABG) 23 % 37.5-50.7 L POC IONIZED [id number] 13:50:00 Test Item Value Reference Range Interpretation Comments POC IONIZED CALCIUM (test code = 1.18 MMOL/L 1.12-1.32 N POCCA) POC LACTIC [id number] 13:50:00 Test Item Value Reference Range Interpretation Comments POC LACTIC ACID (test code = 0.5 mmol/l 0.9-1.7 L POCLAC) POC [id number] 13:50:00 Test Item Value Reference Range Interpretation Comments POC GLUCOSE (test code = POCGLU) 101 MG/DL 70-110 N POC VENOUS BLOOD [id number] 13:50:00 Test Item Value Reference Range Interpretation Comments POC VENOUS BLOOD GAS PH (test 7.411 7.33-7.45 N code = POCPHV) POC VENOUS BLOOD GAS PCO2 (test 48.6 mmHg 43-47 H code = VSSJHV1M) POC VENOUS BLOOD GAS PO2 (test 42.5 mmHG 10-50 N code = LVCSS0B) POC TCO2 VENOUS (test code = 32.4 HNMZJK7W) POC HCO3 VENOUS (test code = 30.9 MMOL/L 22-27 H CXOLMO9U) POC BASE EXCESS VENOUS (test code 5.6 MMOL/L -4.0-4.0 H = POCBEV) POC O2 SATURATION VENOUS (test 77.7 % 60-80 N code = JPBP4RD) [id number] 13:50:00 Test Item Value Reference Range Interpretation Comments CHLORIDE (test code = CL/VBG) 98 MEQ/L [id number] 13:50:00 Test Item Value Reference Range Interpretation Comments SODIUM (test code = NA/ABG) 137 MEQ/L 134-147 N [id number] 13:50:00 Test Item Value Reference Range Interpretation Comments POTASSIUM (test code = K/ABG) 3.5 MEQ/L 3.4-5.0 N CREATININE [id number] 13:50:00 Test Item Value Reference Range Interpretation Comments CREATININE ABG (test code = 2.5 mg/dL 0.8-1.3 H CREAABG) [id number] 13:50:00 Test Item Value Reference Range Interpretation Comments HEMOGLOBIN (test code = HGB/ABG) 7.8 G/DL 12.5-16.9 L [id number] 13:50:00 Test Item Value Reference Range Interpretation Comments HEMATOCRIT (test code = HCT/ABG) 23 % 37.5-50.7 L POC IONIZED [id number] 13:50:00 Test Item Value Reference Range Interpretation Comments POC IONIZED CALCIUM (test code = 1.18 MMOL/L 1.12-1.32 N POCCA) POC LACTIC [id number] 13:50:00 Test Item Value Reference Range Interpretation Comments POC LACTIC ACID (test code = 0.5 mmol/l 0.9-1.7 L POCLAC) POC [id number] 13:50:00 Test Item Value Reference Range Interpretation Comments POC GLUCOSE (test code = POCGLU) 101 MG/DL 70-110 N POC VENOUS BLOOD [id number] 13:50:00 Test Item Value Reference Range Interpretation Comments POC VENOUS BLOOD GAS PH (test 7.411 7.33-7.45 N code = POCPHV) POC VENOUS BLOOD GAS PCO2 (test 48.6 mmHg 43-47 H code = [id number]) POC VENOUS BLOOD GAS PO2 (test 42.5 mmHG 10-50 N code = VBMPU5U) POC TCO2 VENOUS (test code = 32.4 ZZHOOE1I) POC HCO3 VENOUS (test code = 30.9 MMOL/L 22-27 H [id number]) POC BASE EXCESS VENOUS (test code 5.6 MMOL/L -4.0-4.0 H = POCBEV) POC O2 SATURATION VENOUS (test 77.7 % 60-80 N code = EMGO8WO) [id number] 13:50:00 Test Item Value Reference Range Interpretation Comments CHLORIDE (test code = CL/VBG) 98 MEQ/L PROTHROMBIN [id number] 09:51:00 Test Item Value Reference Range Interpretation [...] o prevent recurre nt infarct). BASIC METABOLIC [id number] 08:49:00 Test Item Value Reference Range Interpretation [...] 8.8 mg/dL 8.0-10.5 N CA) CBC W/AUTO [id number] 07:50:00 Test Item Value Reference Range Interpretation [...] DIFF REQUIRED (test code NO = MDIFF) [id number] 06:02:00 Test Item Value Reference Range Interpretation Comments GLUBED (test code = 97 MG/DL 70-110 N Performe d by certified GLUBED) gas system operator at [facility] [id number] 19:46:00 Test Item Value Reference Range Interpretation Comments GLUBED (test code = 181 MG/DL 70-110 H Performe d by certified GLUBED) gas system operator at [facility] [id number] 17:02:00 Test Item Value Reference Range Interpretation Comments GLUBED (test code = 137 MG/DL 70-110 H Performe d by certified GLUBED) gas system operator at [facility] [id number] 17:01:00 Test Item Value Reference Range Interpretation Comments GLUBED (test code = 122 MG/DL 70-110 H Performe d by certified GLUBED) gas system operator at [facility] [id number] 06:54:00 Test Item Value Reference Range Interpretation Comments GLUBED (test code = 159 MG/DL 70-110 H Performe d by certified GLUBED) gas system operator at [facility] BASIC METABOLIC [id number] 06:06:00 Test Item Value Reference Range Interpretation [...] be done morning of Heart CathCBC W/AUTO [id number] 05:50:00 Test Item Value Reference Range Interpretation [...] COMMENTS: To be done morning of Heart [id number] 21:38:00 Test Item Value Reference Range Interpretation Comments GLUBED (test code = 149 MG/DL 70-110 H Performe d by certified GLUBED) gas system operator at [facility] ACUTE HEPATITIS [id number] 18:17:00 Test Item Value Reference Range Interpretation Comments AB HEPATITIS A IGM (test NON REACTIVE INDEX NON REACT. code = HAVMAB) AG HEPATITIS B SURFACE NON REACTIVE INDEX NonReactive (test code = HBSAG) AB HEPATITIS B CORE IGM NON REACTIVE INDEX NON REACT. (test code = HBCMAB) AB HEPATITIS C (test code NON REACTIVE INDEX NON REACT. = HCVAB) [id number] 17:56:00 Test Item Value Reference Range Interpretation Comments GLUBED (test code = 131 MG/DL 70-110 H Performe d by certified GLUBED) gas system operator at [facility] COVID 19 Asymptomatic IH [id number] 16:55:00 Test Item Value Reference Range Interpretation [...] y tests. COMMENTS: If not done this admissionCBC W/AUTO [id number] 16:53:00 Test Item Value Reference Range Interpretation [...] REQUIRED (test code NO = MDIFF) RBC [id number] 16:53:00 Test Item Value Reference Range Interpretation Comments POLYCHROMASIA (test code = POLC) 1+ POIKILOCYTOSIS (test code = POIK) SLIGHT ANISOCYTOSIS (test code = ANISO) 1+ MACROCYTOSIS (test code = MACR) 1+ ELLIPTOCYTES (test code = ELL) FEW BASIC METABOLIC [id number] 16:30:00 Test Item Value Reference Range Interpretation [...] 8.3 mg/dL 8.0-10.5 N CA) CBC W/AUTO [id number] 16:24:00 Test Item Value Reference Range Interpretation [...] REQUIRED (test code NO = MDIFF) RBC [id number] 16:24:00 Test Item Value Reference Range Interpretation Comments ANISOCYTOSIS (test code = ANISO) CBC W/AUTO [id number] 16:24:00 Test Item Value Reference Range Interpretation [...] REQUIRED (test code NO = MDIFF) RBC [id number] 16:24:00 Test Item Value Reference Range Interpretation Comments ANISOCYTOSIS (test code = ANISO) - CTA HEART W CN ART/[id number] 14:45:00 [facility] 1945 Sex: M Name: LOUIS PRITCHARD [facility] : 10/1944 Age/S: 75 / M [address] [place] [address] Blvd Unit #: [id number] Loc: [place] [address] Phys: Nikia Vaughn DISPUTE RESOLUTION ANALYST Acct: [id number] Dis Date: Status: ADM IN PHONE #: [phone] Exam Date: 04/24/2020 1326 FAX #: [phone]: EXAMS: CPT CODE: [id number] CTA HEART W CN ART/GRAFTS 75098 CHEST, ABDOMEN AND PELVIS CT ANGIOGRAM WITH [...] 1 Signed Report (CONTINUED) Name: LOUIS PRITCHARD [facility] : 1945 Age/S: 75 / M [address] [place] [address] Blvd Unit #: [id number] Loc: [place] [address] Phys: Nikia Benito DISPUTE RESOLUTION ANALYST Acct: [id number] Dis Date: Status: ADM IN PHONE #: [phone] Exam Date: 04/24/2020 1326 FAX #: [phone] Reason: EXAMS: CPT CODE: [id number] CTA HEART W CN ART/GRAFTS 88024 <Continued> Abdominal aorta just below the renal [...] 2 Signed Report (CONTINUED) Name: LOUIS PRITCHARD [facility] : 1945 Age/S: 75 / M [address] [place] [address] Blvd Unit #: [id number] Loc: [place] [address] Phys: Nikia Benito DISPUTE RESOLUTION ANALYST Acct: [id number] Dis Date:Status: ADM IN PHONE #: [phone] Exam Date: 04/24/2020 1326 FAX #: [phone] Reason: EXAMS: CPT CODE: [id number] CTA HEART W CN ART/GRAFTS 15008 <Continued>CC: Dominic Adler DO; Gage Turner MD; Nikia Benito NP Technologist:Hernan Jhaveri, RT(R)(CT) CTDI: DLP: Trnscb Date/Time: 04/24/2020 (1444) [email or web address] Orig Print D/T: S: 04/24/2020 (1440) PAGE 3 Signed Report- CT ANGIO [id number] 14:45:00 [facility] 1945 Sex: M Name: LOIUS PRITCHARD [facility] : 10/1944 Age/S: 75 / M [address] [place] [address] Blvd Unit #: [id number] Loc: [place] [address] Phys: Pierre- EfrainNikia DISPUTE RESOLUTION ANALYST Acct: [id number] Dis Date: Status: ADM IN PHONE #: [phone] Exam Date: 04/24/2020 1326 FAX #: [phone]: SEVERE AORTIC STENOSIS. TAVR EVALUATION EXAMS: CPT CODE: [id number] CT ANGIO CHEST 00882 CHEST, ABDOMEN AND PELVIS CT ANGIOGRAM WITH [...] 1 Signed Report (CONTINUED) Name: LOUIS PRITCHARD [facility] : 1945 Age/S: 75 / M [address] [place] [address] Blvd Unit #: [id number] Loc: [place] [address] Phys: Nikia Benito DISPUTE RESOLUTION ANALYST Acct: [id number] Dis Date: Status: ADM IN PHONE #: [phone] Exam Date: 04/24/2020 1326 FAX #: [phone] Reason: SEVERE AORTIC STENOSIS. TAVR EVALUATION EXAMS: CPT CODE: [id number] CT ANGIO CHEST 18547 <Continued> Abdominal aorta just below the renal [...] fluid. at 1445 Reported and signed by: Maharshi Reynlods, D.O. PAGE 2 Signed Report (CONTINUED) Name: LOUIS PRITCHARD [facility] : 1945 Age/S: 75 / M [address] Unit #: [id number] Loc: [place] [address] Phys: Nikia Benito DISPUTE RESOLUTION ANALYST Acct: [id number] Dis Date:Status: ADM IN PHONE #: [phone] Exam Date: 04/24/2020 1326 FAX #: [phone] Reason: SEVERE AORTIC STENOSIS. TAVR EVALUATION EXAMS: CPT CODE: [id number] CT ANGIO CHEST 71227 <Continued>CC: Sabine Adler DO; Gage Turner MD; Nikia Zuniga NP Technologist:Hernan Jhaveri, RT(R)(CT) CTDI: DLP: Trnscb Date/Time: 04/24/2020 (1444) [email or web address] Orig Print D/T: S: 04/24/2020 (7326) PAGE 3 Signed Report- CTA ABD PEL W [id number] 14:45:00 [facility] 1945 Sex: M Name: LOUIS PRITCHARD [facility] : 10/1944 Age/S: 75 / M [address] Unit #: [id number] Loc: [place] [address] Phys: Nikia Vaughn DISPUTE RESOLUTION ANALYST Acct: [id number] Dis Date: Status: ADM IN PHONE #: [phone] Exam Date: 04/24/2020 1326 FAX #: [phone]: SEVERE AORTIC STENOSIS. TAVR EVALUATION EXAMS: CPT CODE: [id number] CTA ABD PEL W CONT 64713 CHEST, ABDOMEN AND PELVIS CT ANGIOGRAM WITH [...] 1 Signed Report (CONTINUED) Name: LOUIS PRITCHARD [facility] : 1945 Age/S: 75 / M [address] [place] [address] Blvd Unit #: [id number] Loc: [place] [address] Phys: Nikia Benito DISPUTE RESOLUTION ANALYST Acct: [id number] Dis Date: Status: ADM IN PHONE #: [phone] Exam Date: 04/24/2020 1326 FAX #: [phone] Reason: SEVERE AORTIC STENOSIS. TAVR EVALUATION EXAMS: CPT CODE: [id number] CTA ABD PEL W CONT 98538 <Continued> Abdominal aorta just below the renal [...] 2 Signed Report (CONTINUED) Name: LOUIS PRITCHARD [facility] : 1945 Age/S: 75 / M [address] [place] [address] Blvd Unit #: [id number] Loc: [place] [address] Phys: Nikia Benito DISPUTE RESOLUTION ANALYST Acct: [id number] Dis Date:Status: ADM IN PHONE #: [phone] Exam Date: 04/24/2020 1326 FAX #: [phone] Reason: SEVERE AORTIC STENOSIS. TAVR EVALUATION EXAMS: CPT CODE: [id number] CTA ABD PEL W CONT 57884 <Continued>CC: Dominic Adler DO; Gage Turner MD; Nikia Benito NP Technologist:Hernan Jhaveri, RT(R)(CT) CTDI: DLP: Trnscb Date/Time: 04/24/2020 (8336) [email or web address] Orig Print D/T: S: 04/24/2020 (6299) PAGE 3 Signed [id number] 12:03:00 Test Item Value Reference Range Interpretation Comments GLUBED (test code = 129 MG/DL 70-110 H Performe d by certified GLUBED) gas system operator at [facility] [id number] 06:50:00 Test Item Value Reference Range Interpretation Comments GLUBED (test code = 108 MG/DL 70-110 N Performe d by certified GLUBED) gas system operator at [facility] [id number] 20:54:00 Test Item Value Reference Range Interpretation Comments GLUBED (test code = 154 MG/DL 70-110 H Performe d by certified GLUBED) gas system operator at [facility] [id number] 17:36:00 Test Item Value Reference Range Interpretation Comments GLUBED (test code = 122 MG/DL 70-110 H Performe d by certified GLUBED) gas system operator at [facility] [id number] 12:14:00 Test Item Value Reference Range Interpretation Comments GLUBED (test code = 164 MG/DL 70-110 H Performe d by certified GLUBED) gas system operator at [facility] - DUP EXTRACRANIAL [id number] 12:03:00 [facility] : 1945 Sex: M Name: LOUIS PRITCHARD [facility] : 10/1944 Age/S: 75 / M [address] [place] [address] Blvd Unit #: [id number] Loc: [place] [address] Phys: Thad Christianson DISPUTE RESOLUTION ANALYST Acct: [id number] Dis Date: Status: ADM IN PHONE #: [phone] Exam Date: 04/23/20201136 FAX #: [phone]: syncope EXAMS: CPT CODE: [id number] DUP EXTRACRANIAL [place] [address] CAROTID ULTRASOUND. INDICATION: Syncope COMPARISON:None. TECHNIQUE: Warner-scale, [...] occlusion High, low, or undetectable Variable SL: [id number] PAGE 1 Signed Report (CONTINUED) Name: LOUIS PRITCHARD [facility] : 1945 Age/S: 75 / M [address] [place] [address] Blvd Unit #: [id number] Loc: [place] [address] Phys: Thad Christianson NP Acct: [id number] Dis Date: Status: ADM IN PHONE #: [phone] Exam Date: 04/23/2020 1137 FAX #: [phone] Reason: syncope EXAMS: CPT CODE: [id number] DUP EXTRACRANIAL [place] [address]26 <Continued> at 1203 Reported and signed by: Otf Ayon M.D. CC: Dominic Adler DO; Thad Christianson DISPUTE RESOLUTION ANALYST; Gage Turner MD Technologist: Brock Guzman Trnscb Date/Time: 04/23/2020 (1203) [email or web address] Orig Print D/T: S: 04/23/2020 (1207) Probe: PAGE 2 Signed ReportTOTAL IRON BINDING [id number] 08:54:00 Test Item Value Reference Range Interpretation Comments SERUM IRON (test code = IRON) 53 mcg/dL 35-150 N TOTAL IRON BINDING CAPACITY (test 191 mcg/dL 260-445 L code = TIBC) UIBC (test code = UIBC) 138 mcg/dL IRON SATURATION (test code = 27.7 % 14-34 N FESAT) VITAMIN [id number] 08:54:00 Test Item Value Reference Range Interpretation Comments VITAMIN B12 (test code = VITB12) 761 pg/mL 193-986 N [id number] 08:54:00 Test Item Value Reference Range Interpretation Comments FERRITIN (test code = MARTÍN) 4618.8 ng/mL 23.9-336.2 H - CT HEAD/BRAIN W/O [id number] 08:45:00 [facility] [place] : 1945 Sex: M Name: LOUIS PRITCHARD [facility] : 10/1944 Age/S: 75 / M [address] [place] [address] Blvd Unit #: [id number] Loc: [place] [address] Phys: Thad Christianson DISPUTE RESOLUTION ANALYST Acct: [id number] Dis Date: Status: ADM IN PHONE #: [phone] Exam Date: 04/23/2020824 FAX #: [phone]: syncope EXAMS: CPT CODE: [id number] CT HEAD/BRAIN W/O CONT 05384 CT HEAD WITHOUT CONTRAST INDICATION: Syncope. COMPARISON: [...] is intact. IMPRESSION: No acute intracranial findings. : [id number] at 0845 Reported and signed by: Otf Ayon M.D. PAGE 1 Signed Report (CONTINUED) Name: LOUIS PRITCHARD [facility] : 1945 Age/S: 75 / M [address] [place] [address] Blvd Unit #: [id number] Loc: [place] [address] Phys: Thad Christianson NP Acct: [id number] Dis Date: Status: ADM IN PHONE #: [phone] Exam Date: 04/23/2020824 FAX #: [phone] Reason: syncopeEXAMS: CPT CODE: [id number] CT HEAD/BRAIN W/O CONT 05000 <Continued> CC: [facility] DO; Thad Christianson DISPUTE RESOLUTION ANALYST; Gage Turner MD Technologist:Renée Tyler RT(R)(CT) CTDI: DLP: Trnscb Date/Time: 04/23/2020 (0845) [email or web address] Orig Print D/T: S: 04/23/2020 (0849) PAGE 2 Signed ReportGLUBED 2020-04-23 07:45:00 Test Item Value Reference Range Interpretation Comments GLUBED (test code = 95 MG/DL 70-110 N Performe d by certified GLUBED) gas system operator at [facility] COMPREHENSIVE METABOLIC [id number] 06:30:00 Test Item Value Reference Range Interpretation [...] 0-100 N <100 (test code = LDL) KJBMEED262 -129 NEAR OPTIMAL/ABOVE [id number] [id number] 89 HIGH>FS=069 VE RY HIGH*Guidelines provided by the National Choles terol EducationProgra m Adult Treatment Panel III [id number] 06:30:00 Test Item Value Reference Range Interpretation Comments PHOSPHOROUS (test code = PHOS) 3.8 MG/DL 2.5-4.9 N [id number] 06:30:00 Test Item Value Reference Range Interpretation Comments MAGNESIUM (test code = MAG) 2.30 mg/dL 1.80-2.40 N [id number] 06:30:00 Test Item Value Reference Range Interpretation Comments TROPONIN-I 1.599 ng/mL 0.000-0.045 HH Critical result called to (test code = Ry ABBOTT y G.[facility] at [facility]) 62504/23/20Nu rse read back result and tech confirmed it's correct? Y ESNegative: <= 0.0 45 Positive: >= 0. 046 Correlation wit h serial results, other cardiac markers andclin ical findings is necessary to determine the clinicalsignifi cance of this result. Results using different metho dologies should not be c omparedto one another as santo titative results may dalia y by method. CBC W/AUTO [id number] 06:28:00 Test Item Value Reference Range Interpretation [...] DIFF REQUIRED (test code NO = MDIFF) [id number] 00:58:00 Test Item Value Reference Range Interpretation Comments GLUBED (test code = 136 MG/DL 70-110 H Performe d by certified GLUBED) gas system operator at [facility] [id number] 16:58:00 Test Item Value Reference Range Interpretation Comments GLUBED (test code = 112 MG/DL 70-110 H Performe d by certified GLUBED) gas system operator at [facility] - XR CHEST 2 [id number] 12:43:00 [facility] : 1945 Sex: M FAX: Thad Christianson NP [phone] [place]: St: [facility] FAX: Gage Thao I [phone] Name: LOUIS PRITCHARD [facility] : 1945 Age/S: 75/M [address] [place] [address] Unit #: [id number] Loc: G.44[address] [place] [address] Phys: Thad Christianson NP Acct: [id number] Dis Date: Status: ADM IN PHONE #: [phone] Exam Date: 04/22/2020 1221 FAX #: [phone]: adm EXAMS: CPT CODE: [id number] XR CHEST 2 V 08894 PROCEDURE: Chest Radiograph. Clinical Indication: Severe aortic [...] Christianson NP; Gage Turner MD Technologist: RT Misty(Gabrielle) Trnscrd Date/Time/By: 04/22/2020 (9692) : By: LaronO Orig Print D/T: S: 04/22/2020 (4676) PAGE 1 Signed [id number]%2020-04-22 12:01:00 Test Item Value Reference Range Interpretation Comments HGBA1C% (test code = HGBA1C%) 5.3 %A1C 4.8-6.0 N BASIC METABOLIC [id number] 10:50:00 Test Item Value Reference Range Interpretation [...] 9.9 mg/dL 8.0-10.5 N CA) HEPATIC FUNCTION [id number] 10:50:00 Test Item Value Reference Range Interpretation [...] 179 IUnit/L 20-125 H code = ALKP) [id number] 10:50:00 Test Item Value Reference Range Interpretation Comments MAGNESIUM (test code = MAG) 2.29 mg/dL 1.80-2.40 N TSH REFLEX TO [id number] 10:50:00 Test Item Value Reference Range Interpretation Comments TSH REFLEX TO FT4 (test code = 0.82 IU/mL 0.42-5.47 N TSHREFLEX) CBC W/O [id number] 10:30:00 Test Item Value Reference Range Interpretation [...] code 11.1 fL 7.0-9.0 H = MPV) [id number] 06:52:00 Test Item Value Reference Range Interpretation Comments GLUBED (test code = 108 MG/DL 70-110 N Performe d by certified GLUBED) gas system operator at [facility]
[2020-07-23] MEDS ORDERED: FAMOTIDINE 20 MG/2 ML VIAL IV ONE (15:52)
[2020-07-23] MEDS ORDERED: ONDANSETRON 4 MG/2 ML VIAL ONE ×2 (15:52→16:23)
[2020-07-23 16:05] LABS: Absolute Lymphocytes (CBC) 0.6 K/uL (0.7-4.9); Basophils % 0.6 % (0-1.3); Hematocrit 24.3 % (39.6-49.0); Lymphocytes % 8.3 % (15.3-44.8); MPV 9.4 fL (7.6-11.3)
[2020-07-23 16:21] LABS: Protime INR 1.51
[2020-07-23 16:30] LABS: ALT/SGPT 59 U/L (12-78); AST/SGOT 63 U/L (15-37); Albumin 2.9 g/dL (3.4-5.0); Alkaline Phosphatase 169 U/L (45-117); BUN Blood Urea Nitrogen 51 mg/dL (7-18); Bicarbonate 19 mmol/L (21-32); Bilirubin Direct 0.3 mg/dL (0-0.2); Bilirubin Total 0.8 mg/dL (0.2-1.0); Glucose Level 120 mg/dL (74-106); Lipase 141 U/L (73-393); Protein, Total 7.5 g/dL (6.4-8.2); Sodium Level 133 mmol/L (136-145); Troponin (Emerg Dept Use Only) 0.04 ng/mL (0.0-0.045)
--- NOTE | 2020-07-23 16:34 | RAD REPORT ---
EXAM DESCRIPTION: Elsy Single View07/23/2020 4:10 pm CLINICAL HISTORY: Shortness of breath COMPARISON: 2019 FINDINGS: Mild bilateral pulmonary opacities. The heart is moderately enlarged. Postsurgical changes involve the chest. IMPRESSION: Mild CHF
[2020-07-23 16:45] LABS: NT PRO-BNP > 175000 pg/mL (<450)
[2020-07-23] MEDS ORDERED: FUROSEMIDE 100 MG/10 ML VIAL IV ONE (17:06)
[2020-07-23] MEDS ORDERED: IPRATROPIUM BROM 0.5MG/2.5ML ONE (17:07)
[2020-07-23] MEDS ORDERED: INSULIN -REGULAR HUMAN 50 UNIT/0.5 ML ML ONE (17:07)
[2020-07-23] MEDS ORDERED: ALBUTEROL 2.5 MG/3 ML NEB SOL ONE (17:07)
[2020-07-23] MEDS ORDERED: CALCIUM GLUCONATE 1 GM IVPB 1 GM/50 ML BAG IV ONE (17:08)
[2020-07-23] MEDS ORDERED: D50W 25 GM/50 ML SYRINGE IV ONE (17:13)
--- NOTE | 2020-07-23 17:16 | ER ---
Nurse's Notes [facility] Name: Jodi Steve Age: 75 yrs Sex: Male : 1945 Arrival Date: 07/23/2020 Time: 14:58 Bed 18 Private MD: Diagnosis: Hyperkalemia;Pulmonary edema;End stage renal disease Presentation: 07/23 15:21 Chief complaint: Patient's son or daughter states: SOB AND GEN WEAKNESS x3 DAYS. bp Coronavirus screen: At this time, the client does not indicate any symptoms associated with coronavirus-19. Ebola Screen: No symptoms or risks identified at this time. Initial Sepsis Screen: Does the patient meet any 2 criteria? HR > 90 bpm. No. Patient's initial sepsis screen is negative. Does the patient have a suspected source of infection? No. Patient's initial sepsis screen is negative. Risk Assessment: Do you want to hurt yourself or someone else? Patient reports no desire to harm self or others. Note D/C FROM REHAB FRIDAY AFTER BKA. Onset of symptoms is unknown. 15:21 Method Of Arrival: Wheelchair bp 15:21 Acuity: ELYSE 3 bp Triage Assessment: 15:23 General: Appears distressed, uncomfortable, Behavior is calm, cooperative, appropriate bp for age. Pain: Denies pain. EENT: No deficits noted. Neuro: Reports weakness. Cardiovascular: No deficits noted. Respiratory: Reports shortness of breath. GI: Reports nausea. : No signs and/or symptoms were reported regarding the genitourinary system. Derm: No deficits noted. Musculoskeletal: No deficits noted. Historical: - Allergies: 15:23 No Known Allergies; bp - Home Meds: 15:23 albuterol sulfate 90 mcg/actuation Inhl HFAA 1 puff every 4-6 hours [Active]; bp carvedilol 25 mg Oral tab 1 tab every 12 hours [Active]; montelukast Oral [Active]; - PMHx: 15:23 Diabetes - NIDDM; Hypertension; Renal Disease; bp - PSHx: 15:23 BKA; bp - Immunization history:: Adult Immunizations up to date. - Social history:: Smoking status: Patient denies any tobacco usage or history of. Screenin:18 Abuse screen: Denies threats or abuse. Nutritional screening: No deficits noted. em Tuberculosis screening: No symptoms or risk factors identified. Fall Risk Secondary diagnosis (15 points) impaired mobility. Assessment: 15:24 General: SEE TRIAGE NOTE. bp 16:05 Reassessment: reports nausea is not better after medication, JOHN Peterson notified, em received VO to repeat 4 mg Zofran. 17:00 Reassessment: Patient appears in no apparent distress at this time. Patient and/or em family updated on plan of care and expected duration. Pain level reassessed. Patient is alert, oriented x 3, equal unlabored respirations, skin warm/dry/pink. nausea has improved Patient states feeling better. 18:05 Reassessment: reports pain at amputation site, took a Malott at 2 PM, JOHN Peterson em notified, received VO to repeat Malott 10 PO x 1. 18:37 Reassessment: Patient appears in no apparent distress at this time. Dialysis nurse at em bedside, will take pt in stretcher to get dialyzed. 19:29 Reassessment: Pt report to Kaelyn, receiving RN on floor. Questions/concerns addressed. ad5 Pt in HD at this time, to go to room 231 afterwards. Vital Signs: 15:21 BP 139 / 75; Pulse 100; Resp 17; Temp 98; Pulse Ox 100% ; bp 16:00 BP 147 / 77; Pulse 101; Resp 18; Pulse Ox 99% on R/A; Pain 0/10; em 17:30 BP 158 / 80; Pulse 106; Resp 20; Pulse Ox 100% on R/A; em 18:40 BP 143 / 74; Pulse 97; Resp 18; Pulse Ox 99% on R/A; Pain 7/10; em ED Course: 14:58 Patient arrived in ED. bg2 15:16 Nicholas Mason PA is PHCP. cp 15:16 Nicholas Wagner MD is Attending Physician. cp 15:18 Elkin Gould, RN is Primary Nurse. em 15:18 Patient has correct armband on for positive identification. em 15:22 Triage completed. bp 15:40 Initial lab(s) drawn, by me, sent to lab. Inserted saline lock: 22 gauge in right em forearm, using aseptic technique. Blood collected. 16:10 XRAY Chest (1 view) In Process Unspecified. EDMS 16:35 Notified Nurse Practitioner and/or Physician Rotary Envelope Machine Operator of a critical lab result(s), ss potassium-7.0. 17:15 Patrick Harris MD is Hospitalizing Provider. cp 17:25 Hopper cath inserted, using sterile technique, 16 Fr., by nj, balloon inflated, urine em specimen collected. returned clear yellow urine. Patient tolerated well. 17:27 Franklin Corado MD is Hospitalizing Provider. cp 18:45 No provider procedures requiring assistance completed. em 19:18 Patient admitted, IV remains in place. em Administered Medications: 15:40 Drug: Pepcid (famotidine) 20 mg Route: IVP; Site: right forearm; em 16:12 Follow up: Response: No adverse reaction em 15:40 Drug: Zofran (Ondansetron) 4 mg Route: IVP; Site: right forearm; em 16:12 Follow up: Response: No adverse reaction; Marked relief of symptoms em 16:07 Drug: Zofran (Ondansetron) 4 mg Route: IVP; Site: right forearm; em 16:30 Follow up: Response: No adverse reaction em 16:57 Drug: Albuterol 7.5 mg Route: Inhalation; em 16:57 Drug: AtroVENT (ipratropium) Aerosol 0.5 mg Route: Inhalation; em 17:00 Drug: D50W 50 ml Route: IVP; Site: right forearm; em 18:37 Follow up: Response: No adverse reaction em 17:02 Drug: Insulin Regular Human 10 units {Co-Signature: em (Elkin Gould RN).} Route: IVP; ss Site: right forearm; 18:36 Follow up: Response: No adverse reaction em 17:04 Drug: Sodium Bicarbonate 1 amp Route: IVP; Site: right forearm; em 18:37 Follow up: Response: No adverse reaction em 17:09 Drug: Calcium Gluconate 1 grams Route: IVPB; Infused Over: 10 mins; Site: right forearm;em 18:09 Follow up: IV Status: Completed infusion; IV Intake: 100ml em 17:20 Drug: Lasix (furosemide) 100 mg Route: IVP; Site: right forearm; em 18:29 Follow up: Response: No adverse reaction em 18:00 Drug: Kayexalate (polystyrene) 45 grams Route: PO; em 18:14 Follow up: Response: No adverse reaction em 18:22 Drug: Malott (HYDROcodone-acetaminophen) 10 mg-325 mg 1 tabs Route: PO; em 18:36 Follow up: Response: No adverse reaction em Point of Care Testing: Blood Glucose: 18:36 Blood Glucose: 116 mg/dL; em Ranges: Intake: 18:09 IV: 100ml; Total: 100ml. em Outcome: 17:16 Decision to Hospitalize by Provider. cp 19:17 Admitted to Tele accompanied by nurse, via stretcher, room 231, with chart. em 19:17 Condition: stable 19:17 Instructed on the need for admit, Demonstrated understanding of instructions. 19:18 Patient left the ED. em Signatures: Dispatcher [employer] Elkin Hauser RN RN em Shelbi Hanson RN RN Veronika Decker 2 Nicholas Mason, Kris Ortiz cp, JULIO RN Desmond Paredes RN em
--- NOTE | 2020-07-23 17:16 | EDPHYS ---
Physician Documentation [facility] Name: Jodi Steve Age: 75 yrs Sex: Male : 1945 Arrival Date: 07/23/2020 Time: 14:58 Bed 18 Private MD: ED Physician Nicholas Wagner HPI: 07/23 15:30 This 75 yrs old Male presents to ER via Wheelchair with complaints of cp Vomiting, Breathing Difficulty, Weakness. 15:30 The patient has shortness of breath at rest. cp 15:30 Onset: The symptoms/episode began/occurred 3 day(s) ago. cp 15:30 Duration: The symptoms are continuous, and are steadily getting worse. cp 15:30 The patient presents to the emergency department with nausea, that is moderate, cp vomiting, that is intermittent. Possible causes: unknown. Associated signs and symptoms: Pertinent negatives: chest pain, diaphoresis, fever. Historical: - Allergies: 15:23 No Known Allergies; bp - Home Meds: 15:23 albuterol sulfate 90 mcg/actuation Inhl HFAA 1 puff every 4-6 hours [Active]; bp carvedilol 25 mg Oral tab 1 tab every 12 hours [Active]; montelukast Oral [Active]; - PMHx: 15:23 Diabetes - NIDDM; Hypertension; Renal Disease; bp - PSHx: 15:23 BKA; bp - Immunization history:: Adult Immunizations up to date. - Social history:: Smoking status: Patient denies any tobacco usage or history of. ROS: 15:33 Constitutional: Negative for body aches, chills, fever, poor PO intake. cp 15:33 Eyes: Negative for injury, pain, redness, and discharge. cp 15:33 Cardiovascular: Negative for chest pain, edema, palpitations. cp 15:33 Respiratory: Positive for shortness of breath, at rest. Negative for cough, wheezing. 15:33 Abdomen/GI: Positive for nausea and vomiting, Negative for abdominal pain, diarrhea, constipation, black/tarry stool, rectal bleeding. 15:33 Back: Negative for pain at rest, pain with movement. 15:33 Skin: Negative for cellulitis, rash. 15:33 Neuro: Positive for general weakness, Negative for altered mental status, headache, loss of consciousness, syncope. 15:33 All other systems are negative. cp Exam: 15:40 Constitutional: The patient appears in no acute distress, alert, awake, cp non-diaphoretic, non-toxic, well developed, frail. 15:40 Head/Face: Normocephalic, atraumatic. cp 15:40 Eyes: Periorbital structures: appear normal, Conjunctiva: normal, no exudate, no injection, Sclera: no appreciated abnormality, Lids and lashes: appear normal, bilaterally. 15:40 ENT: External ear(s): are unremarkable, Nose: is normal, Posterior pharynx: Airway: no evidence of obstruction, patent. 15:40 Chest/axilla: Inspection: normal, Palpation: is normal, no crepitus, no tenderness. 15:40 Cardiovascular: Rate: tachycardic, Rhythm: regular, Edema: is not appreciated, JVD: is not appreciated. 15:40 Respiratory: the patient does not display signs of respiratory distress, Respirations: labored breathing, is not present, intercostal retractions, are absent, shallow respirations, that is mild, splinting, is not noted, tachypnea, is not appreciated, Breath sounds: bronchial sounds, that are mild, are heard diffusely, stridor, is not appreciated, wheezing: is not appreciated. 15:40 Abdomen/GI: Inspection: abdomen appears normal, Palpation: abdomen is soft and non-tender, in all quadrants. 15:40 Back: pain, is absent, ROM is normal. 15:40 Neuro: Orientation: to person, place \T\ time. Mentation: is normal. 15:40 Musculoskeletal/extremity: bilateral BKA. cp 16:05 ECG was reviewed by the Attending Physician. cp Vital Signs: 15:21 BP 139 / 75; Pulse 100; Resp 17; Temp 98; Pulse Ox 100% ; bp 16:00 BP 147 / 77; Pulse 101; Resp 18; Pulse Ox 99% on R/A; Pain 0/10; em 17:30 BP 158 / 80; Pulse 106; Resp 20; Pulse Ox 100% on R/A; em 18:40 BP 143 / 74; Pulse 97; Resp 18; Pulse Ox 99% on R/A; Pain 7/10; em MDM: 15:20 Patient medically screened. cp 15:45 Differential diagnosis: CHF exacerbation, gastritis, pancreatitis, viral cp gastroenteritis, gastroenteritis, pneumonia, Unstable Angina. 17:45 Data reviewed: vital signs, nurses notes, lab test result(s), EKG, radiologic studies, cp plain films, I have discussed the patient's presentation/case with the attending Emergency Department Physician; and as a result, I will admit patient. 17:45 Test interpretation: by ED physician or midlevel provider: ECG, plain radiologic cp studies. 17:45 Physician consultation: Franklin Corado MD was called at 17:15, was contacted at 17:15, cp regarding admission, to the telemetry unit. patient's condition. 07/23 15:28 Order name: Basic Metabolic Panel cp 07/23 15:28 Order name: CBC with Diff cp 07/23 15:28 Order name: LFT's; Complete Time: 16:56 cp 07/23 15:28 Order name: Magnesium; Complete Time: 16:56 cp 07/23 15:28 Order name: NT PRO-BNP; Complete Time: 16:56 cp 07/23 15:28 Order name: PT-INR; Complete Time: 16:38 cp 07/23 15:28 Order name: Troponin (emerg Dept Use Only); Complete Time: 16:56 cp 07/23 15:28 Order name: Lipase; Complete Time: 16:56 cp 07/23 15:29 Order name: Basic Metabolic Panel; Complete Time: 16:56 EDMS 07/23 15:29 Order name: CBC with Automated Diff; Complete Time: 16:38 EDMS 07/23 16:43 Order name: Type And Screen daisy 07/23 17:43 Order name: SARS-COV-2 RT PCR EDME 07/23 18:45 Order name: Glucose, Ancillary Testing EDME 07/23 15:28 Order name: XRAY Chest (1 view); Complete Time: 16:38 cp 07/23 18:48 Order name: Basic Metabolic Panel EDME 07/23 18:48 Order name: Basic Metabolic Panel EDME 07/23 18:48 Order name: CBC with Automated Diff EDMS 07/23 18:48 Order name: CBC with Automated Diff EDMS 07/23 15:28 Order name: EKG; Complete Time: 15:29 cp 07/23 15:28 Order name: Cardiac monitoring; Complete Time: 15:29 cp 07/23 15:28 Order name: EKG - Nurse/Tech; Complete Time: 16:07 cp 07/23 15:28 Order name: IV Saline Lock; Complete Time: 16:08 cp 07/23 15:28 Order name: Labs collected and sent; Complete Time: 16:07 cp 07/23 15:28 Order name: O2 Per Protocol; Complete Time: 15:29 cp 07/23 15:28 Order name: O2 Sat Monitoring; Complete Time: 15:29 cp 07/23 16:43 Order name: Hopper; Complete Time: 17:33 daisy 07/23 18:45 Order name: CONS Physician Consult EDMS 07/23 19:01 Order name: CONS Physician Consult EDMS EC:05 Rate is 103 beats/min. Rhythm is regular. MO interval is normal. QRS interval is cp prolonged at 128 msec. QT interval is normal. T waves are Inverted in leads II, aVF, V4, V5, V6. Interpreted by me. Reviewed by me. Administered Medications: 15:40 Drug: Pepcid (famotidine) 20 mg Route: IVP; Site: right forearm; em 16:12 Follow up: Response: No adverse reaction em 15:40 Drug: Zofran (Ondansetron) 4 mg Route: IVP; Site: right forearm; em 16:12 Follow up: Response: No adverse reaction; Marked relief of symptoms em 16:07 Drug: Zofran (Ondansetron) 4 mg Route: IVP; Site: right forearm; em 16:30 Follow up: Response: No adverse reaction em 16:57 Drug: Albuterol 7.5 mg Route: Inhalation; em 16:57 Drug: AtroVENT (ipratropium) Aerosol 0.5 mg Route: Inhalation; em 17:00 Drug: D50W 50 ml Route: IVP; Site: right forearm; em 18:37 Follow up: Response: No adverse reaction em 17:02 Drug: Insulin Regular Human 10 units {Co-Signature: em (Elkin Gould RN).} Route: IVP; ss Site: right forearm; 18:36 Follow up: Response: No adverse reaction em 17:04 Drug: Sodium Bicarbonate 1 amp Route: IVP; Site: right forearm; em 18:37 Follow up: Response: No adverse reaction em 17:09 Drug: Calcium Gluconate 1 grams Route: IVPB; Infused Over: 10 mins; Site: right forearm;em 18:09 Follow up: IV Status: Completed infusion; IV Intake: 100ml em 17:20 Drug: Lasix (furosemide) 100 mg Route: IVP; Site: right forearm; em 18:29 Follow up: Response: No adverse reaction em 18:00 Drug: Kayexalate (polystyrene) 45 grams Route: PO; em 18:14 Follow up: Response: No adverse reaction em 18:22 Drug: [place] (HYDROcodone-acetaminophen) 10 mg-325 mg 1 tabs Route: PO; em 18:36 Follow up: Response: No adverse reaction em Point of Care Testing: Blood Glucose: 18:36 Blood Glucose: 116 mg/dL; em Ranges: Critical Glucose Levels:Adult <50 mg/dl or >400 mg/dl <40 mg/dl or >180 mg/dl Disposition: 07/24 10:01 Co-signature as Attending Physician, Nicholas Wagner MD I agree with the assessment and daisy plan of care. Disposition: 07/23/20 17:16 Hospitalization ordered by Franklin Corado for Inpatient Admission. Preliminary diagnosis are Hyperkalemia, Pulmonary edema, End stage renal disease. - Bed requested for Telemetry/MedSurg (Inpatient). - Status is Inpatient Admission. em - Condition is Stable. - Problem is new. - Symptoms have improved. Signatures: Dispatcher [facility] Allison José RN RN dw Anderson, Corey, MD MD cha Munoz, Edgar, RN RN Shelbi Hanson RN RN ss Page, Corey, PA PA cp Peltier, Brian, RN RN Elkin Gould RN em Corrections: (The following items were deleted from the chart) 07/23 16:55 16:12 CORONAVIRUS+MR.LAB.BRZ ordered. [facility] EDME 17:27 17:16 Hospitalization Ordered by Patrick Harris MD for Inpatient Admission. Preliminary cp diagnosis is Hyperkalemia; Pulmonary edema; End stage renal disease. Bed requested for Telemetry/MedSurg (Inpatient). Status is Inpatient Admission. Condition is Stable. Problem is new. Symptoms have improved. cp 18:52 17:27 07/23/2020 17:16 Hospitalization Ordered by Franklin Corado MD for Inpatient dw Admission. Preliminary diagnosis is Hyperkalemia; Pulmonary edema; End stage renal disease. Bed requested for Telemetry/MedSurg (Inpatient). Status is Inpatient Admission. Condition is Stable. Problem is new. Symptoms have improved. cp 19:18 18:52 07/23/2020 17:16 Hospitalization Ordered by Franklin Corado MD for Inpatient em Admission. Preliminary diagnosis is Hyperkalemia; Pulmonary edema; End stage renal disease. Bed requested for Telemetry/MedSurg (Inpatient). Status is Inpatient Admission. Condition is Stable. Problem is new. Symptoms have improved. dw 07/24 18:49 07/23 17:45 Physician consultation: Franklin Corado MD was contacted at 17:45, regarding cp admission, to the telemetry unit. patient's condition, cp
[2020-07-23] MEDS ORDERED: LIDOCAINE VISCOUS 2% SOLN 15 ML UDC ONE (17:33)
[2020-07-23] MEDS ORDERED: SOD POLYSTYREN SUL 15 GM/60 ML UCUP ONE (18:05)
[2020-07-23] MEDS ORDERED: HYDROCODONE/APAP 10/325 TAB ONE (18:38)
[2020-07-23] MEDS ORDERED: ONDANSETRON 4 MG/2 ML VIAL IV PRN ×2 (18:47→19:00)
[2020-07-23] MEDS ORDERED: HYDROCODONE/APAP 7.5/325 MG TAB PO PRN (18:59)
[2020-07-23] MEDS ORDERED: HOME MED 1 EA UNK (Ondansetron Hcl [Ondansetron Hcl] 8 MG Tablet) PO PRN (18:59)
--- NOTE | 2020-07-23 19:07 | P.HP ---
Certification for Inpatient Patient admitted to: Observation With expected LOS: <2 Midnights Patient will require the following post-hospital care: None Practitioner: I am a practitioner with admitting privileges, knowledge of patient current condition, hospital course, and medical plan of care. Services: Services provided to patient in accordance with Admission requirements found in Title 42 Section 412.3 of the Code of Federal Regulations Patient History Date of Service: 07/23/20 Primary Care Provider: Mak Reason for admission: hyperkalemia, nausea, ESRD History of Present Illness: Office patient of [facility] with a history of pvd, aortic stenosis, s/p valve replacement, he is also on dialysis with Dr Jackson. The patient recently had a bka on the second leg. Was sent to a PT center after this. Suffered his rt leg bka a month previously. The patient was recently sent home. Has been doing well. Denies missing any of his medications. The patient started having nausea and vomiting for the past 3 days. He had his dialysis on Friday as per normal. He continued to have nausea and vomiting. Was feeling poorly and was told to go to ER by his home health nurse. The patient was found to have a potassium of 7. Dr. Jackson was called and the patient was to have dialysis. I saw him in the dialysis center. He is in good spirits. He is still feeling a bit nauseated. However he is otherwise doing well. Allergies metformin Allergy (Mild, Verified 07/04/20 07:24) Nausea/Vomiting Home Medications: Aspirin [Aspirin EC 81 MG] 81 mg PO DAILY 07/03/20 Carvedilol [Coreg] 0.5 tab PO BID 07/03/20 Clopidogrel Bisulfate [Clopidogrel] 75 mg PO DAILY 07/03/20 Furosemide 40 mg PO DAILY 07/03/20 Gabapentin 300 mg PO DAILY 07/03/20 Hydrocodone Bit/Acetaminophen [Hydrocodon-Acetaminoph 7.5-325] 1 tab PO Q6H PRN 07/03/20 Lactulose [Cephulac*] 30 ml PO BID 07/03/20 Levothyroxine Sodium [Levothyroxine] 150 mcg PO DAILY 07/03/20 Lisinopril [Zestril] 2.5 mg PO DAILY 07/03/20 ondansetron HCL [Ondansetron HCl] 8 mg PO Q6H PRN 07/03/20 - Past Medical/Surgical History Diabetic: Yes -: Hypertension -: Renal disease -: NIDDM -: HD MWF -: CABG 2013 -: Vascular surgery 2018 -: TAVR Apr 2020 - Family History Sister -: Diabetes Mother -: Diabetes - Social History Alcohol use: No CD- Drugs: No Caffeine use: Yes Review of Systems 10-point ROS is otherwise unremarkable Gastrointestinal: Nausea, Vomiting Physical Examination - Physical Exam General: Alert, In no apparent distress HEENT: Atraumatic, PERRLA, Mucous membr. moist/pink, EOMI, Sclerae nonicteric Neck: Supple, 2+ carotid pulse no bruit, No LAD, Without JVD or thyroid abnormality Respiratory: Clear to auscultation bilaterally, Normal air movement Cardiovascular: Regular rate/rhythm, Normal S1 S2 Gastrointestinal: Normal bowel sounds, No tenderness Musculoskeletal: No tenderness Integumentary: No rashes Neurological: Normal gait, Normal speech, Normal strength at 5/5 x4 extr, Normal tone, Normal affect Lymphatics: No axilla or inguinal lymphadenopathy - Studies Laboratory Data (last 24 hrs) 07/23/20 15:50: PT 17.4 H, INR 1.51 07/23/20 15:50: WBC 6.80, Hgb 7.7 L*, Hct 24.3 L, Plt Count 163 07/23/20 15:50: Sodium 133 L, Potassium 7.0 H*, BUN 51 H, Creatinine 4.77 H, Glucose 120 H, Magnesium 2.0, Total Bilirubin 0.8, AST 63 H, ALT 59, Alkaline Phosphatase 169 H, Lipase 141 Assessment and Plan - Problems (Diagnosis) (1) Acute hyperkalemia Current Visit: Yes Status: Acute Plan: will recheck after dialysis. See how he does with diet. If the patient can eat he can go home. (2) Chronic CHF (congestive heart failure) Current Visit: No Status: Chronic Plan: He is stable Will continue the carvedilol. No need for another echo as he has had one in the last 3 months. Qualifiers: Heart failure type: systolic (3) Hypothyroid Current Visit: No Status: Chronic Plan: continue home dosage of levothyroid. Will check a tsh. Qualifiers: Hypothyroidism type: acquired Qualified Code(s): E03.9 - Hypothyroidism, unspecified (4) ESRD (end stage renal disease) on dialysis Current Visit: No Status: Chronic Plan: normally a MWF dialysis pt with Dr. Graff's group. Will have him get a round today. Will most likely d/c tomorrow after a short round of dialysis. Discharge Plan: Home Plan to discharge in: 24 Hours - Advance Directives Does patient have a Living Will: No Does patient have a Durable POA for Healthcare: No - Code Status/Comfort Care Code Status Assessed: No Code Status: Full Code Physician Review: Patient Assessed, Agree with Above Assessment and Plan Critical Care: No Time Spent Managing Pts Care (In Minutes): 50
[2020-07-23 22:52] VITALS: BMI 22.4
[2020-07-24] MEDS: carvediloL 3.125 MG TAB PO SCH ×2 (00:06→10:10)
[2020-07-24 06:01] LABS: Absolute Lymphocytes (CBC) 0.5 K/uL (0.7-4.9); Basophils % 0.6 % (0-1.3); Hematocrit 22.9 % (39.6-49.0); Lymphocytes % 10.8 % (15.3-44.8); MPV 9.5 fL (7.6-11.3); Potassium 4.4 mmol/L (3.5-5.1); RBC Red Blood Cell Count 2.48 M/uL (4.33-5.43)
[2020-07-24] MEDS ORDERED: LEVOTHYROXINE SOD 0.075 MG TAB PO SCH (07:30)
[2020-07-24] MEDS ORDERED: ASPIRIN EC 81 MG TAB PO SCH (09:00)
[2020-07-24] MEDS ORDERED: GABAPENTIN 300 MG CAP PO SCH (09:00)
[2020-07-24] MEDS ORDERED: CLOPIDOGREL 75 MG TABLET PO SCH (09:00)
[2020-07-24 12:13] VITALS: O2SAT 100
--- NOTE | 2020-07-24 15:37 | P.DS ---
Admission Date: 07/23/20 Discharge Date: 07/24/20 Primary Care Provider: Mka Disposition: ROUTINE DISCHARGE Discharge Condition: GOOD Reason for Admission: hyperkalemia, nausea, ESRD - Problems (1) Acute hyperkalemia Current Visit: Yes Status: Acute (2) Chronic CHF (congestive heart failure) Current Visit: No Status: Chronic Qualifiers: Heart failure type: systolic (3) Hypothyroid Current Visit: No Status: Chronic Qualifiers: Hypothyroidism type: acquired Qualified Code(s): E03.9 - Hypothyroidism, unspecified (4) ESRD (end stage renal disease) on dialysis Current Visit: No Status: Chronic Brief History of Present Illness: Office patient of [facility] with a history of pvd, aortic stenosis, s/p valve replacement, he is also on dialysis with Dr Jackson. The patient recently had a bka on the second leg. Was sent to a PT center after this. Suffered his rt leg bka a month previously. The patient was recently sent home. Has been doing well. Denies missing any of his medications. The patient started having nausea and vomiting for the past 3 days. He had his dialysis on Friday as per normal. He continued to have nausea and vomiting. Was feeling poorly and was told to go to ER by his home health nurse. The patient was found to have a potassium of 7. Dr. Jackson was called and the patient was to have dialysis. I saw him in the dialysis center. He is in good spirits. He is still feeling a bit nauseated. However he is otherwise doing well. Hospital Course: Patient was admitted for hyperkalemia. He had an extra round of dialysis. Had his routine dialysis today. He had a slight drop in his hb from 7.7 to 7.3 The patient is doing well. Will discharge him home. Continue normal dialysis. Follow up with me in a week. Vital Signs/Physical Exam: Temp Pulse Resp BP Pulse Ox 97.1 F 95 H 16 135/77 100 07/24/20 11:55 07/24/20 11:55 07/24/20 11:55 07/24/20 11:55 07/24/20 11:55 General: Alert, In no apparent distress HEENT: Atraumatic, PERRLA, EOMI Neck: Supple, JVD not distended Respiratory: Clear to auscultation bilaterally, Normal air movement Cardiovascular: Regular rate/rhythm, Normal S1 S2 Gastrointestinal: Normal bowel sounds, No tenderness Musculoskeletal: No tenderness Integumentary: No rashes Neurological: Normal speech, Normal tone, Normal affect Lymphatics: No axilla or inguinal lymphadenopathy Laboratory Data at Discharge: WBC 4.70 K/uL (4.3-10.9) D 07/24/20 05:14 Hgb 7.3 g/dL (13.6-17.9) L* 07/24/20 05:14 Hct 22.9 % (39.6-49.0) L 07/24/20 05:14 Plt Count 132 K/uL (152-406) L 07/24/20 05:14 PT 17.4 SECONDS (9.5-12.5) H 07/23/20 15:50 INR 1.51 07/23/20 15:50 Sodium 139 mmol/L (136-145) 07/24/20 05:14 Potassium 4.4 mmol/L (3.5-5.1) 07/24/20 05:14 BUN 26 mg/dL (7-18) H D 07/24/20 05:14 Creatinine 2.83 mg/dL (0.55-1.3) H D 07/24/20 05:14 Glucose 88 mg/dL (74-106) 07/24/20 05:14 Magnesium 2.0 mg/dL (1.8-2.4) 07/23/20 15:50 Total Bilirubin 0.8 mg/dL (0.2-1.0) 07/23/20 15:50 AST 63 U/L (15-37) H 07/23/20 15:50 ALT 59 U/L (12-78) 07/23/20 15:50 Alkaline Phosphatase 169 U/L (45-117) H 07/23/20 15:50 Lipase 141 U/L (73-393) 07/23/20 15:50 Home Medications: Aspirin [Aspirin EC 81 MG] 81 mg PO DAILY 07/03/20 Carvedilol [Coreg] 0.5 tab PO BID 07/03/20 Clopidogrel Bisulfate [Clopidogrel] 75 mg PO DAILY 07/03/20 Furosemide 40 mg PO DAILY 07/03/20 Gabapentin 300 mg PO DAILY 07/03/20 Hydrocodone Bit/Acetaminophen [Hydrocodon-Acetaminoph 7.5-325] 1 tab PO Q6H PRN 07/03/20 Lactulose [Cephulac*] 30 ml PO BID 07/03/20 Levothyroxine Sodium [Levothyroxine] 150 mcg PO DAILY 07/03/20 Lisinopril [Zestril] 2.5 mg PO DAILY 07/03/20 ondansetron HCL [Ondansetron HCl] 8 mg PO Q6H PRN 07/03/20 Diet: Renal Activity: Fall precautions Followup: Franklin Corado MD [Primary Care Provider] - 1 Week Time spent managing pt's care (in minutes): 30
[2020-07-24 16:13] VITALS: BP 118/61; TEMP 97
[2020-07-24] MEDS ORDERED: ENOXAPARIN 30 MG/0.3 ML SQ SCH (17:00)
--- NOTE | 2020-07-25 03:27 | CON ---
Date of Consultation: 07/24/2020 Chief Complaint: End-stage renal disease on dialysis. History Of Present Illness: The patient has multiple medical problems including history of diabetes mellitus, hypertension, history of diabetic foot infection, underwent amputation. Patient presented to the hospital because of vomiting, generalized weakness. He was complaining of shortness of breath, chest congestion. He was found to have fluid overload and stat dialysis was ordered for volume control and to provide metabolic clearance. Blood pressure remains stable. Patient is hemodynamically stable. Patient was evaluated for gastritis and pancreatitis. The patient was admitted to the hospital for CHF exacerbation and fluid overload. Patient had previous admission for lower extremity cellulitis. He underwent BKA. Review of Systems: Denies fever or chills. Eyes: Denies vision changes. Ears, Nose, Mouth, and Throat: Denies sore throat, earache. Respiratory: Was complaining of shortness of breath. Denies PND, orthopnea. : Denies dysuria, hematuria. GI: Denies hematemesis. He had some abdominal pain, nausea, vomiting. All other systems are reviewed and all are negative. Past Medical History: Hypertension, diabetes mellitus, anemia, CKD, peripheral vascular disease, coronary artery disease, noninsulin dependent diabetes mellitus, TAVR in April 2020, and vascular surgery in 2019. Family History: Sister, diabetes. Mother, diabetes. Social History: Denies tobacco, alcohol, illicit drugs. Surgical History: BKA. Physical Examination: General: Patient is awake, alert, follows commands. Eyes: Anicteric sclerae. EOMI. Ears, Nose and Throat: Oral mucosa moist. No pallor. Neck: Supple. No bruits. Lungs: Diminished breath sounds at bases. HEART: S1, S2. Abdomen: Soft. Benign. Extremities: No edema. Dressing in place. Lab Work: Potassium 7.8, BUN 51, creatinine 4.77, glucose 120, magnesium 2.0. Sodium 133, AST 63, lipase is 141, AP 169. Impression And Plan: 1. Acute hyperkalemia, severe hyperkalemia. Patient received stat dialysis to control electrolytes. Patient will continue low-potassium diet. After dialysis, potassium level has improved. Patient will resume dialysis 3 times per week. 2. Hypertension, hypertensive heart and kidney disease, acute on chronic congestive heart failure with diastolic dysfunction. Blood pressure is fluctuating. Patient will continue carvedilol for congestive heart failure and blood pressure. 3. End-stage renal disease, on dialysis. Patient will have dialysis 3 times per week. Monitor potassium level. Continue low-potassium diet. 4. Anemia due to CKD, monitor hemoglobin level, adjust CHRIS according to lab results. 5. Diabetes mellitus. Continue insulin. 6. Fluid overload. Patient has responded to dialysis. Fluid overload resolved. The patient is feeling better. Denies chest pain. The patient will have workup with Cardiology. PING/IMER Voice ID: [id number] Report ID: [id number] [id number]
== END 2020-07-24 16:52 | disposition home or self-care (01) ==
LOC: ER 14:54 → ERHOLD 19:07 → INTOOBSV 19:07 → 2ND 19:35
PROVIDERS: ADMIT Internal Medicine; ATTEND Internal Medicine
DX: E87.5 Hyperkalemia (principal); I13.2 Hypertensive heart and chronic kidney disease with heart failure and with stage 5 chronic kidney disease, or end stage renal disease; E11.22 Type 2 diabetes mellitus with diabetic chronic kidney disease; N18.6 End stage renal disease; Z99.2 Dependence on renal dialysis; Z20.822 Contact with and (suspected) exposure to COVID-19; I50.33 Acute on chronic diastolic (congestive) heart failure; R94.31 Abnormal electrocardiogram [ECG] [EKG]; D63.1 Anemia in chronic kidney disease; E11.51 Type 2 diabetes mellitus with diabetic peripheral angiopathy without gangrene; I25.10 Atherosclerotic heart disease of native coronary artery without angina pectoris; Z95.2 Presence of prosthetic heart valve; E03.9 Hypothyroidism, unspecified; Z89.511 Acquired absence of right leg below knee; Z89.512 Acquired absence of left leg below knee; Z95.1 Presence of aortocoronary bypass graft
CPT/HCPCS: 96365; 93005; 85025 ×2; 80048 ×2; 36415; 86900; 83735; 86850; 85610; 86901; 82947 ×3; 80076; 84484; 83690; 83880; 71045; 90935; 51702; 96375; 99285; U0003; J0610; J2405 ×2; G0378

== ENCOUNTER 2020-08-12 14:42 | Emergency (ER) | payer OTHER ==
--- OUTSIDE RECORDS SUMMARY | 2020-08-12 14:48 | XMS REPORT | Continuity of Care Document ---
:1945 Author Organization [facility] t Address [address] [place] [address] Care Team Providers Name Role Phone EVELIN JACKSON Attending Clinician Unavailable Singer ALAN Attending Clinician RAMÓN Attending Clinician Unavailable Tono VELÁSQUEZ, S Attending Clinician Annie KIM Attending Clinician Erin VELÁSQUEZ Attending Clinician Brynn VELÁSQUEZ, F Attending Clinician Nighat VELÁSQUEZ A Attending Clinician Claudio ACKERMAN Attending Clinician KO Admitting Clinician Unavailable Erin VELÁSQUEZ Admitting Clinician Payers Payer Name Policy Type Policy Number Effective Date Expiration Date S ource Problems This patient has no known problems. Allergies, Adverse Reactions, Alerts Allergy Allergy Status Severity Reaction(s) Onset Inactive Treating Comm ents Source Name Type Date Date Clinician NKA Allergy Active ENCCLR 5- 13:01: 46 NKA Allergy Active ENCCLR 5-13 13:01: 46 NKA Allergy Active ENCCLR 5-13 13:01: 46 NKA Allergy Active ENCCLR 3-10 16:48: 51 No Known DA Active U [facility] Allergie 2-06 Clear s 00:00: Rocha 00 [facility] Medications This patient has no known medications. Procedures Procedure Date / Time Performed Performing Clinician Sourc e [id number] 2020-07-10 00:00:00 ENCPL [id number] 2020-07-10 00:00:00 ENCPL Encounters Start End Encounter Admission Attending Care Care Encounter Source Date/Time Date/Time Type Type Clinicians Facility Department ID 2020-03-29 Outpatient MHSE CAR [id number] MH 10:59:41 [facility] 2020-07-27 2020-07-27 Outpatient READMISSIO EVELIN ENCCLR ENCCLR [id number] ENCCLR 00:00:00 00:00:00 RAMY LARKIN 2020-06-26 2020-06-26 Emergency [facility] [id number] 09:15:00 11:28:00 Alberto Bonilla [id number] [place] 4.2.7.2.686 [place] [id number] 2020-05-24 2020-05-24 Outpatient READMISSIO RAMÓN, ENCCLR ENCCLR [id number] ENCCLR 00:00:00 00:00:00 Maurizio DELUCA 2020-04-20 2020-04-20 Emergency [facility] [id number] 02:44:00 05:48:00 Marky Bonilla [id number] [place] 4.2.7.2.686 [place] [id number] 2020-04-19 2020-04-19 Kinjal Fisher [id number] 00:00:00 00:00:00 of Care Donna Valencia [id number] [place] 4.2.7.2.686 [id number] 2020-04-092020-04-18 [facility] Alberto Ruelas [id number] 12:29:00 19:45:00 Encounter Alfredo Khan 350.1.13.10 [facility] 4.2.7.2.686 Alfredo Khan [id number] [facility] 090 Alfredo Khan 2020-04-14 2020-04-14 Telephone Carolyn Disla [id number] 00:00:00 00:00:00 Terrence Long [id number] [facility] [id number] [id number] 2020-03-16 2020-03-16 Outpatient MHSE CAR [id number] MH 09:06:00 09:06:00 [facility] 2020-03-14 2020-03-14 Office [facility] [id number] 09:32:42 10:30:27 Visit kraig, SPECIALTY 350.1.13.10 [facility] 4.2.7.2.686 CENTER AT [id number] GLENN Romano [facility] Results Test Description Test Time Test Comments Results Result Comments Source GLUBED 2020-04-28 15:12:00 Test Item Value Reference Range Interpretation Comme nts GLUBED (test code = GLUBED) 140 MG/DL 70-110 H Performed by certified 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 [facility] CBC W/AUTO [id number] 08:41:00 Test Item Value Reference Range Interpretation [...] (test code NO = MDIFF) BASIC METABOLIC [id number] 08:08:00 Test Item Value Reference Range Interpretation [...] code = 9.5 mg/dL 8.0-10.5 N CA) [id number] 08:08:00 Test Item Value Reference Range Interpretation Comments MAGNESIUM (test code = MAG) 2.83 mg/dL 1.80-2.40 H [id number] 06:49:00 Test Item Value Reference Range Interpretation Comments GLUBED (test code = 87 MG/DL 70-110 N Performe d by certified GLUBED) 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 [id number] 11:37:00 Test Item Value Reference Range Interpretation Comments MAGNESIUM (test code = MAG) 1.57 mg/dL 1.80-2.40 L CBC W/AUTO [id number] 04:35:00 Test Item Value Reference Range Interpretation [...] MDIFF) CONSISTE NT WITH AUTO DIFF. PLT [id number] 04:35:00 Test Item Value Reference Range Interpretation Comments PLATELET ESTIMATE (test code 80-100 THOUSAND ADEQUATE = PLTEST) PLATELET MORPHOLOGY (test NORMAL code = PLTMORPH) CBC W/AUTO [id number] 04:34:00 Test Item Value Reference Range Interpretation [...] MDIFF) CONSISTE NT WITH AUTO DIFF. PLT [id number] 04:34:00 Test Item Value Reference Range Interpretation Comments PLATELET ESTIMATE (test code = THOUSAND ADEQUATE PLTEST) CBC W/AUTO [id number] 04:34:00 Test Item Value Reference Range Interpretation [...] MDIFF) CONSISTE NT WITH AUTO DIFF. PLT [id number] 04:34:00 Test Item Value Reference Range Interpretation Comments PLATELET ESTIMATE (test code = THOUSAND ADEQUATE PLTEST) BASIC METABOLIC [id number] 04:05:00 Test Item Value Reference Range Interpretation [...] 8.8 mg/dL 8.0-10.5 N CA) CBC W/AUTO [id number] 03:57:00 Test Item Value Reference Range Interpretation [...] MANUAL DIFF REQUIRED (test code = MDIFF) [id number] 20:52:00 Test Item Value Reference Range Interpretation Comments GLUBED (test code = 107 MG/DL 70-110 N Performe d by certified GLUBED) 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 [id number] 15:17:00 Test Item Value Reference Range Interpretation Comments GLUBED (test code = 103 MG/DL 70-110 N Performe d by certified GLUBED) 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 [id number] 14:34:00 Test Item Value Reference Range Interpretation Comments GLUBED (test code = 129 MG/DL 70-110 H Performe d by certified GLUBED) 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 [id number] 13:50:00 Test Item Value Reference Range Interpretation Comments SODIUM (test code = NA/ABG) MEQ/L 134-147 [id number] 13:50:00 Test Item Value Reference Range Interpretation Comments POTASSIUM (test code = K/ABG) MEQ/L 3.4-5.0 CREATININE [id number] 13:50:00 Test Item Value Reference Range Interpretation Comments CREATININE ABG (test code = CREAABG) mg/dL 0.8-1.3 [id number] 13:50:00 Test Item Value Reference Range Interpretation Comments HEMOGLOBIN (test code = HGB/ABG) G/DL 12.5-16.9 [id number] 13:50:00 Test Item Value Reference Range Interpretation Comments HEMATOCRIT (test code = HCT/ABG) % 37.5-50.7 POC IONIZED [id number] 13:50:00 Test Item Value Reference Range Interpretation Comments POC IONIZED CALCIUM (test code = MMOL/L 1.12-1.32 POCCA) POC LACTIC [id number] 13:50:00 Test Item Value Reference Range Interpretation Comments POC LACTIC ACID (test code = POCLAC) mmol/l 0.9-1.7 POC [id number] 13:50:00 Test Item Value Reference Range Interpretation Comments POC GLUCOSE (test code = POCGLU) MG/DL 70-110 POC VENOUS BLOOD [id number] 13:50:00 Test Item Value Reference Range Interpretation Comments POC VENOUS BLOOD GAS PH (test 7.411 7.33-7.45 N code = POCPHV) POC VENOUS BLOOD GAS PCO2 (test 48.6 mmHg 43-47 H code = MORJUV8S) POC VENOUS BLOOD GAS PO2 (test 42.5 mmHG 10-50 N code = HIQSO3D) POC TCO2 VENOUS (test code = 32.4 MNHIVU1R) POC HCO3 VENOUS (test code = 30.9 MMOL/L 22-27 H WJPPVI7Z) POC BASE EXCESS VENOUS (test code 5.6 MMOL/L -4.0-4.0 H = POCBEV) POC O2 SATURATION VENOUS (test 77.7 % 60-80 N code = ETNQ3ZB) [id number] 13:50:00 Test Item Value Reference Range Interpretation Comments CHLORIDE (test code = CL/VBG) MEQ/L [id number] 13:50:00 Test Item Value Reference Range Interpretation Comments SODIUM (test code = NA/ABG) 137 MEQ/L 134-147 N [id number] 13:50:00 Test Item Value Reference Range Interpretation Comments POTASSIUM (test code = K/ABG) MEQ/L 3.4-5.0 CREATININE [id number] 13:50:00 Test Item Value Reference Range Interpretation Comments CREATININE ABG (test code = CREAABG) mg/dL 0.8-1.3 [id number] 13:50:00 Test Item Value Reference Range Interpretation Comments HEMOGLOBIN (test code = HGB/ABG) G/DL 12.5-16.9 [id number] 13:50:00 Test Item Value Reference Range Interpretation Comments HEMATOCRIT (test code = HCT/ABG) % 37.5-50.7 POC IONIZED [id number] 13:50:00 Test Item Value Reference Range Interpretation Comments POC IONIZED CALCIUM (test code = MMOL/L 1.12-1.32 POCCA) POC LACTIC [id number] 13:50:00 Test Item Value Reference Range Interpretation Comments POC LACTIC ACID (test code = POCLAC) mmol/l 0.9-1.7 POC [id number] 13:50:00 Test Item Value Reference Range Interpretation Comments POC GLUCOSE (test code = POCGLU) MG/DL 70-110 POC VENOUS BLOOD [id number] 13:50:00 Test Item Value Reference Range Interpretation Comments POC VENOUS BLOOD GAS PH (test 7.411 7.33-7.45 N code = POCPHV) POC VENOUS BLOOD GAS PCO2 (test 48.6 mmHg 43-47 H code = RTWCEJ8N) POC VENOUS BLOOD GAS PO2 (test 42.5 mmHG 10-50 N code = OBXWQ7J) POC TCO2 VENOUS (test code = 32.4 WVTBRG1C) POC HCO3 VENOUS (test code = 30.9 MMOL/L 22-27 H SAYCJV1W) POC BASE EXCESS VENOUS (test code 5.6 MMOL/L -4.0-4.0 H = POCBEV) POC O2 SATURATION VENOUS (test 77.7 % 60-80 N code = CFDM1MO) [id number] 13:50:00 Test Item Value Reference Range Interpretation Comments CHLORIDE (test code = CL/VBG) MEQ/L [id number] 13:50:00 Test Item Value Reference Range Interpretation Comments SODIUM (test code = NA/ABG) 137 MEQ/L 134-147 N [id number] 13:50:00 Test Item Value Reference Range Interpretation Comments POTASSIUM (test code = K/ABG) 3.5 MEQ/L 3.4-5.0 N CREATININE [id number] 13:50:00 Test Item Value Reference Range Interpretation Comments CREATININE ABG (test code = CREAABG) mg/dL 0.8-1.3 [id number] 13:50:00 Test Item Value Reference Range Interpretation Comments HEMOGLOBIN (test code = HGB/ABG) G/DL 12.5-16.9 [id number] 13:50:00 Test Item Value Reference Range Interpretation Comments HEMATOCRIT (test code = HCT/ABG) % 37.5-50.7 POC IONIZED [id number] 13:50:00 Test Item Value Reference Range Interpretation Comments POC IONIZED CALCIUM (test code = MMOL/L 1.12-1.32 POCCA) POC LACTIC [id number] 13:50:00 Test Item Value Reference Range Interpretation Comments POC LACTIC ACID (test code = POCLAC) mmol/l 0.9-1.7 POC [id number] 13:50:00 Test Item Value Reference Range Interpretation Comments POC GLUCOSE (test code = POCGLU) MG/DL 70-110 POC VENOUS BLOOD [id number] 13:50:00 Test Item Value Reference Range Interpretation Comments POC VENOUS BLOOD GAS PH (test 7.411 7.33-7.45 N code = POCPHV) POC VENOUS BLOOD GAS PCO2 (test 48.6 mmHg 43-47 H code = TWGRSI2V) POC VENOUS BLOOD GAS PO2 (test 42.5 mmHG 10-50 N code = BJTTO0E) POC TCO2 VENOUS (test code = 32.4 XTFIJN4A) POC HCO3 VENOUS (test code = 30.9 MMOL/L 22-27 H WZTDFT3G) POC BASE EXCESS VENOUS (test code 5.6 MMOL/L -4.0-4.0 H = POCBEV) POC O2 SATURATION VENOUS (test 77.7 % 60-80 N code = CVCG6NO) [id number] 13:50:00 Test Item Value Reference Range Interpretation Comments CHLORIDE (test code = CL/VBG) MEQ/L [id number] 13:50:00 Test Item Value Reference Range Interpretation Comments SODIUM (test code = NA/ABG) 137 MEQ/L 134-147 N [id number] 13:50:00 Test Item Value Reference Range Interpretation Comments POTASSIUM (test code = K/ABG) 3.5 MEQ/L 3.4-5.0 N CREATININE [id number] 13:50:00 Test Item Value Reference Range Interpretation Comments CREATININE ABG (test code = CREAABG) mg/dL 0.8-1.3 [id number] 13:50:00 Test Item Value Reference Range Interpretation Comments HEMOGLOBIN (test code = HGB/ABG) G/DL 12.5-16.9 [id number] 13:50:00 Test Item Value Reference Range Interpretation Comments HEMATOCRIT (test code = HCT/ABG) % 37.5-50.7 POC IONIZED [id number] 13:50:00 Test Item Value Reference Range Interpretation Comments POC IONIZED CALCIUM (test code = 1.18 MMOL/L 1.12-1.32 N POCCA) POC LACTIC [id number] 13:50:00 Test Item Value Reference Range Interpretation Comments POC LACTIC ACID (test code = POCLAC) mmol/l 0.9-1.7 POC [id number] 13:50:00 Test Item Value Reference Range Interpretation Comments POC GLUCOSE (test code = POCGLU) MG/DL 70-110 POC VENOUS BLOOD [id number] 13:50:00 Test Item Value Reference Range Interpretation Comments POC VENOUS BLOOD GAS PH (test 7.411 7.33-7.45 N code = POCPHV) POC VENOUS BLOOD GAS PCO2 (test 48.6 mmHg 43-47 H code = XLVYUC5G) POC VENOUS BLOOD GAS PO2 (test 42.5 mmHG 10-50 N code = ETJFY3S) POC TCO2 VENOUS (test code = 32.4 XBQRRQ2S) POC HCO3 VENOUS (test code = 30.9 MMOL/L 22-27 H JLALDQ2R) POC BASE EXCESS VENOUS (test code 5.6 MMOL/L -4.0-4.0 H = POCBEV) POC O2 SATURATION VENOUS (test 77.7 % 60-80 N code = SPDY2GL) [id number] 13:50:00 Test Item Value Reference Range Interpretation Comments CHLORIDE (test code = CL/VBG) MEQ/L [id number] 13:50:00 Test Item Value Reference Range Interpretation Comments SODIUM (test code = NA/ABG) 137 MEQ/L 134-147 N [id number] 13:50:00 Test Item Value Reference Range Interpretation Comments POTASSIUM (test code = K/ABG) 3.5 MEQ/L 3.4-5.0 N CREATININE [id number] 13:50:00 Test Item Value Reference Range Interpretation Comments CREATININE ABG (test code = CREAABG) mg/dL 0.8-1.3 [id number] 13:50:00 Test Item Value Reference Range Interpretation Comments HEMOGLOBIN (test code = HGB/ABG) G/DL 12.5-16.9 [id number] 13:50:00 Test Item Value Reference Range Interpretation Comments HEMATOCRIT (test code = HCT/ABG) % 37.5-50.7 POC IONIZED [id number] 13:50:00 Test Item Value Reference Range Interpretation Comments POC IONIZED CALCIUM (test code = 1.18 MMOL/L 1.12-1.32 N POCCA) POC LACTIC [id number] 13:50:00 Test Item Value Reference Range Interpretation Comments POC LACTIC ACID (test code = POCLAC) mmol/l 0.9-1.7 POC [id number] 13:50:00 Test Item Value Reference Range Interpretation Comments POC GLUCOSE (test code = POCGLU) 101 MG/DL 70-110 N POC VENOUS BLOOD [id number] 13:50:00 Test Item Value Reference Range Interpretation Comments POC VENOUS BLOOD GAS PH (test 7.411 7.33-7.45 N code = POCPHV) POC VENOUS BLOOD GAS PCO2 (test 48.6 mmHg 43-47 H code = XXGIDZ8O) POC VENOUS BLOOD GAS PO2 (test 42.5 mmHG 10-50 N code = TTFHN5Y) POC TCO2 VENOUS (test code = 32.4 WNLQZL5Y) POC HCO3 VENOUS (test code = 30.9 MMOL/L 22-27 H NUDEHT3N) POC BASE EXCESS VENOUS (test code 5.6 MMOL/L -4.0-4.0 H = POCBEV) POC O2 SATURATION VENOUS (test 77.7 % 60-80 N code = NOET5OC) [id number] 13:50:00 Test Item Value Reference Range Interpretation Comments CHLORIDE (test code = CL/VBG) MEQ/L [id number] 13:50:00 Test Item Value Reference Range Interpretation Comments SODIUM (test code = NA/ABG) 137 MEQ/L 134-147 N [id number] 13:50:00 Test Item Value Reference Range Interpretation Comments POTASSIUM (test code = K/ABG) 3.5 MEQ/L 3.4-5.0 N CREATININE [id number] 13:50:00 Test Item Value Reference Range Interpretation Comments CREATININE ABG (test code = CREAABG) mg/dL 0.8-1.3 [id number] 13:50:00 Test Item Value Reference Range Interpretation Comments HEMOGLOBIN (test code = HGB/ABG) G/DL 12.5-16.9 [id number] 13:50:00 Test Item Value Reference Range Interpretation Comments HEMATOCRIT (test code = HCT/ABG) % 37.5-50.7 POC IONIZED [id number] 13:50:00 Test Item Value Reference Range Interpretation Comments POC IONIZED CALCIUM (test code = 1.18 MMOL/L 1.12-1.32 N POCCA) POC LACTIC [id number] 13:50:00 Test Item Value Reference Range Interpretation Comments POC LACTIC ACID (test code = 0.5 mmol/l 0.9-1.7 L POCLAC) POC [id number] 13:50:00 Test Item Value Reference Range Interpretation Comments POC GLUCOSE (test code = POCGLU) 101 MG/DL 70-110 N POC VENOUS BLOOD [id number] 13:50:00 Test Item Value Reference Range Interpretation Comments POC VENOUS BLOOD GAS PH (test 7.411 7.33-7.45 N code = POCPHV) POC VENOUS BLOOD GAS PCO2 (test 48.6 mmHg 43-47 H code = XTFFML6O) POC VENOUS BLOOD GAS PO2 (test 42.5 mmHG 10-50 N code = PFIKL0N) POC TCO2 VENOUS (test code = 32.4 FIUFUD6D) POC HCO3 VENOUS (test code = 30.9 MMOL/L 22-27 H PYTDBL4R) POC BASE EXCESS VENOUS (test code 5.6 MMOL/L -4.0-4.0 H = POCBEV) POC O2 SATURATION VENOUS (test 77.7 % 60-80 N code = VZSD0ZA) [id number] 13:50:00 Test Item Value Reference Range Interpretation Comments CHLORIDE (test code = CL/VBG) MEQ/L [id number] 13:50:00 Test Item Value Reference Range Interpretation Comments SODIUM (test code = NA/ABG) 137 MEQ/L 134-147 N [id number] 13:50:00 Test Item Value Reference Range Interpretation Comments POTASSIUM (test code = K/ABG) 3.5 MEQ/L 3.4-5.0 N CREATININE [id number] 13:50:00 Test Item Value Reference Range Interpretation Comments CREATININE ABG (test code = CREAABG) mg/dL 0.8-1.3 [id number] 13:50:00 Test Item Value Reference Range Interpretation Comments HEMOGLOBIN (test code = HGB/ABG) G/DL 12.5-16.9 [id number] 13:50:00 Test Item Value Reference Range Interpretation Comments HEMATOCRIT (test code = HCT/ABG) 23 % 37.5-50.7 L POC IONIZED [id number] 13:50:00 Test Item Value Reference Range Interpretation Comments POC IONIZED CALCIUM (test code = 1.18 MMOL/L 1.12-1.32 N POCCA) POC LACTIC [id number] 13:50:00 Test Item Value Reference Range Interpretation Comments POC LACTIC ACID (test code = 0.5 mmol/l 0.9-1.7 L POCLAC) POC [id number] 13:50:00 Test Item Value Reference Range Interpretation Comments POC GLUCOSE (test code = POCGLU) 101 MG/DL 70-110 N POC VENOUS BLOOD [id number] 13:50:00 Test Item Value Reference Range Interpretation Comments POC VENOUS BLOOD GAS PH (test 7.411 7.33-7.45 N code = POCPHV) POC VENOUS BLOOD GAS PCO2 (test 48.6 mmHg 43-47 H code = ARKPKF7V) POC VENOUS BLOOD GAS PO2 (test 42.5 mmHG 10-50 N code = TXHEV5G) POC TCO2 VENOUS (test code = 32.4 BERETC1O) POC HCO3 VENOUS (test code = 30.9 MMOL/L 22-27 H DWZGRO2O) POC BASE EXCESS VENOUS (test code 5.6 MMOL/L -4.0-4.0 H = POCBEV) POC O2 SATURATION VENOUS (test 77.7 % 60-80 N code = JJDX3JY) [id number] 13:50:00 Test Item Value Reference Range Interpretation Comments CHLORIDE (test code = CL/VBG) MEQ/L [id number] 13:50:00 Test Item Value Reference Range Interpretation Comments SODIUM (test code = NA/ABG) 137 MEQ/L 134-147 N [id number] 13:50:00 Test Item Value Reference Range Interpretation Comments POTASSIUM (test code = K/ABG) 3.5 MEQ/L 3.4-5.0 N CREATININE [id number] 13:50:00 Test Item Value Reference Range Interpretation Comments CREATININE ABG (test code = CREAABG) mg/dL 0.8-1.3 [id number] 13:50:00 Test Item Value Reference Range Interpretation Comments HEMOGLOBIN (test code = HGB/ABG) 7.8 G/DL 12.5-16.9 L [id number] 13:50:00 Test Item Value Reference Range Interpretation Comments HEMATOCRIT (test code = HCT/ABG) 23 % 37.5-50.7 L POC IONIZED [id number] 13:50:00 Test Item Value Reference Range Interpretation Comments POC IONIZED CALCIUM (test code = 1.18 MMOL/L 1.12-1.32 N POCCA) POC LACTIC [id number] 13:50:00 Test Item Value Reference Range Interpretation Comments POC LACTIC ACID (test code = 0.5 mmol/l 0.9-1.7 L POCLAC) POC [id number] 13:50:00 Test Item Value Reference Range Interpretation Comments POC GLUCOSE (test code = POCGLU) 101 MG/DL 70-110 N POC VENOUS BLOOD [id number] 13:50:00 Test Item Value Reference Range Interpretation Comments POC VENOUS BLOOD GAS PH (test 7.411 7.33-7.45 N code = POCPHV) POC VENOUS BLOOD GAS PCO2 (test 48.6 mmHg 43-47 H code = RBYOHZ3W) POC VENOUS BLOOD GAS PO2 (test 42.5 mmHG 10-50 N code = BQDDY8Z) POC TCO2 VENOUS (test code = 32.4 AEMOLO8Y) POC HCO3 VENOUS (test code = 30.9 MMOL/L 22-27 H PFBJJW3V) POC BASE EXCESS VENOUS (test code 5.6 MMOL/L -4.0-4.0 H = POCBEV) POC O2 SATURATION VENOUS (test 77.7 % 60-80 N code = TZUR6KN) [id number] 13:50:00 Test Item Value Reference Range Interpretation Comments CHLORIDE (test code = CL/VBG) MEQ/L [id number] 13:50:00 Test Item Value Reference Range Interpretation Comments SODIUM (test code = NA/ABG) 137 MEQ/L 134-147 N [id number] 13:50:00 Test Item Value Reference Range Interpretation Comments POTASSIUM (test code = K/ABG) 3.5 MEQ/L 3.4-5.0 N CREATININE [id number] 13:50:00 Test Item Value Reference Range Interpretation Comments CREATININE ABG (test code = CREAABG) mg/dL 0.8-1.3 [id number] 13:50:00 Test Item Value Reference Range Interpretation Comments HEMOGLOBIN (test code = HGB/ABG) 7.8 G/DL 12.5-16.9 L [id number] 13:50:00 Test Item Value Reference Range Interpretation Comments HEMATOCRIT (test code = HCT/ABG) 23 % 37.5-50.7 L POC IONIZED [id number] 13:50:00 Test Item Value Reference Range Interpretation Comments POC IONIZED CALCIUM (test code = 1.18 MMOL/L 1.12-1.32 N POCCA) POC LACTIC [id number] 13:50:00 Test Item Value Reference Range Interpretation Comments POC LACTIC ACID (test code = 0.5 mmol/l 0.9-1.7 L POCLAC) POC [id number] 13:50:00 Test Item Value Reference Range Interpretation Comments POC GLUCOSE (test code = POCGLU) 101 MG/DL 70-110 N POC VENOUS BLOOD [id number] 13:50:00 Test Item Value Reference Range Interpretation Comments POC VENOUS BLOOD GAS PH (test 7.411 7.33-7.45 N code = POCPHV) POC VENOUS BLOOD GAS PCO2 (test 48.6 mmHg 43-47 H code = DOIUIJ5S) POC VENOUS BLOOD GAS PO2 (test 42.5 mmHG 10-50 N code = KSPAH1C) POC TCO2 VENOUS (test code = 32.4 YXPTEY3R) POC HCO3 VENOUS (test code = 30.9 MMOL/L 22-27 H HYKZHQ2S) POC BASE EXCESS VENOUS (test code 5.6 MMOL/L -4.0-4.0 H = POCBEV) POC O2 SATURATION VENOUS (test 77.7 % 60-80 N code = BGWC7XM) [id number] 13:50:00 Test Item Value Reference Range Interpretation Comments CHLORIDE (test code = CL/VBG) 98 MEQ/L [id number] 13:50:00 Test Item Value Reference Range Interpretation Comments SODIUM (test code = NA/ABG) 137 MEQ/L 134-147 N [id number] 13:50:00 Test Item Value Reference Range Interpretation Comments POTASSIUM (test code = K/ABG) 3.5 MEQ/L 3.4-5.0 N CREATININE [id number] 13:50:00 Test Item Value Reference Range Interpretation Comments CREATININE ABG (test code = 2.5 mg/dL 0.8-1.3 H CREAABG) [id number] 13:50:00 Test Item Value Reference Range Interpretation Comments HEMOGLOBIN (test code = HGB/ABG) 7.8 G/DL 12.5-16.9 L [id number] 13:50:00 Test Item Value Reference Range Interpretation Comments HEMATOCRIT (test code = HCT/ABG) 23 % 37.5-50.7 L POC IONIZED [id number] 13:50:00 Test Item Value Reference Range Interpretation Comments POC IONIZED CALCIUM (test code = 1.18 MMOL/L 1.12-1.32 N POCCA) POC LACTIC [id number] 13:50:00 Test Item Value Reference Range Interpretation Comments POC LACTIC ACID (test code = 0.5 mmol/l 0.9-1.7 L POCLAC) POC [id number] 13:50:00 Test Item Value Reference Range Interpretation Comments POC GLUCOSE (test code = POCGLU) 101 MG/DL 70-110 N POC VENOUS BLOOD [id number] 13:50:00 Test Item Value Reference Range Interpretation Comments POC VENOUS BLOOD GAS PH (test 7.411 7.33-7.45 N code = POCPHV) POC VENOUS BLOOD GAS PCO2 (test 48.6 mmHg 43-47 H code = [id number]) POC VENOUS BLOOD GAS PO2 (test 42.5 mmHG 10-50 N code = YGNBY2J) POC TCO2 VENOUS (test code = 32.4 USUVXI0E) POC HCO3 VENOUS (test code = 30.9 MMOL/L 22-27 H [id number]) POC BASE EXCESS VENOUS (test code 5.6 MMOL/L -4.0-4.0 H = POCBEV) POC O2 SATURATION VENOUS (test 77.7 % 60-80 N code = [id number]) [id number] 13:50:00 Test Item Value Reference Range Interpretation Comments CHLORIDE (test code = CL/VBG) 98 MEQ/L PROTHROMBIN [id number] 09:51:00 Test Item Value Reference Range Interpretation [...] o prevent recurre nt infarct). 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 [id number] 19:46:00 Test Item Value Reference Range Interpretation Comments GLUBED (test code = 181 MG/DL 70-110 H Performe d by certified GLUBED) 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 [id number] 17:02:00 Test Item Value Reference Range Interpretation Comments GLUBED (test code = 137 MG/DL 70-110 H Performe d by certified GLUBED) 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 [id number] 17:01:00 Test Item Value Reference Range Interpretation Comments GLUBED (test code = 122 MG/DL 70-110 H Performe d by certified GLUBED) 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 [id number] 06:54:00 Test Item Value Reference Range Interpretation Comments GLUBED (test code = 159 MG/DL 70-110 H Performe d by certified GLUBED) 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 BASIC METABOLIC [id number] 06:06:00 Test Item Value Reference Range Interpretation [...] be done morning of Heart CathCBC W/AUTO [id number] 05:50:00 Test Item Value Reference Range Interpretation [...] COMMENTS: To be done morning of Heart [id number] 21:38:00 Test Item Value Reference Range Interpretation Comments GLUBED (test code = 149 MG/DL 70-110 H Performe d by certified GLUBED) 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 code = HAVMAB) AG HEPATITIS B SURFACE NON REACTIVE INDEX NonReactive (test code = HBSAG) AB HEPATITIS B CORE IGM NON REACTIVE INDEX NON REACT. (test code = HBCMAB) AB HEPATITIS C (test code NON REACTIVE INDEX NON REACT. 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 [facility] COVID 19 Asymptomatic IH [id number] 16:55:00 Test Item Value Reference Range Interpretation [...] COMMENTS: If not done this admissionCBC W/AUTO [id number] 16:53:00 Test Item Value Reference Range Interpretation [...] REQUIRED (test code NO = MDIFF) RBC [id number] 16:53:00 Test Item Value Reference Range Interpretation Comments POLYCHROMASIA (test code = POLC) 1+ POIKILOCYTOSIS (test code = POIK) SLIGHT ANISOCYTOSIS (test code = ANISO) 1+ MACROCYTOSIS (test code = MACR) 1+ ELLIPTOCYTES (test code = ELL) FEW BASIC METABOLIC [id number] 16:30:00 Test Item Value Reference Range Interpretation [...] 8.3 mg/dL 8.0-10.5 N CA) CBC W/AUTO [id number] 16:24:00 Test Item Value Reference Range Interpretation [...] REQUIRED (test code NO = MDIFF) RBC [id number] 16:24:00 Test Item Value Reference Range Interpretation Comments ANISOCYTOSIS (test code = ANISO) CBC W/AUTO [id number] 16:24:00 Test Item Value Reference Range Interpretation [...] REQUIRED (test code NO = MDIFF) RBC [id number] 16:24:00 Test Item Value Reference Range Interpretation Comments ANISOCYTOSIS (test code = ANISO) - CTA HEART W CN ART/[id number] 14:45:00 [facility] 1945 Sex: M Name: LOUIS PRITCHARD [facility] : 10/1944 Age/S: 75 / M [address] [place] [address] Blvd Unit #: [id number] Loc: [place] [address] Phys: Nikia Vaughn TUTORING MANAGER Acct: [id number] Dis Date: Status: ADM IN PHONE #: [phone] Exam Date: 04/24/2020 1326 FAX #: [phone]: EXAMS: CPT CODE: [id number] CTA HEART W CN ART/GRAFTS 31021 CHEST, ABDOMEN AND PELVIS CT ANGIOGRAM WITH [...] 1 Signed Report (CONTINUED) Name: LOUIS PRITCHARD [facility] : 1945 Age/S: 75 / M [address] [place] [address] Blvd Unit #: [id number] Loc: [place] [address] Phys: Nikia Benito TUTORING MANAGER Acct: [id number] Dis Date: Status: ADM IN PHONE #: [phone] Exam Date: 04/24/2020 1326 FAX #: [phone] Reason: EXAMS: CPT CODE: [id number] CTA HEART W CN ART/GRAFTS 98492 <Continued> Abdominal aorta just below the renal [...] edema with trace pelvic free fluid. at 6566 Reported and signed by: Jerry Reynolds D.O. PAGE 2 Signed Report (CONTINUED) Name: LOUIS PRITCHARD [facility] : 1945 Age/S: 75 / M [address] [place] [address] Blvd Unit #: [id number] Loc: [place] [address] Phys: Nikia Benito NP Acct: [id number] Dis Date:Status: ADM IN PHONE #: [phone] Exam Date: 04/24/2020 1326 FAX #: [phone] Reason: EXAMS: CPT CODE: [id number] CTA HEART W CN ART/GRAFTS 23295 <Continued>CC: VivianaDwayne Adler DO; Gage Turner MD; Nikia Benito NP Technologist:Hernan Jhaveri, RT(R)(CT) CTDI: DLP: Trnscb Date/Time: 04/24/2020 (1445) [email or web address] Orig Print D/T: S: 04/24/2020 (5186) PAGE 3 Signed Report- CT ANGIO [id number] 14:45:00 [facility] : 1945 Sex: M Name: LOUIS PRITCHARD [facility] : 10/1944 Age/S: 75 / M [address] [place] [address] Blvd Unit #: [id number] Loc: [place] [address] Phys: Nikia Vaughn TUTORING MANAGER Acct: [id number] Dis Date: Status: ADM IN PHONE #: [phone] Exam Date: 04/24/2020 1326 FAX #: [phone]: SEVERE AORTIC STENOSIS. TAVR EVALUATION EXAMS: CPT CODE: [id number] CT ANGIO CHEST 00265 CHEST, ABDOMEN AND PELVIS CT ANGIOGRAM WITH [...] 1 Signed Report (CONTINUED) Name: LOUIS PRITCHARD [facility] : 1945 Age/S: 75 / M [address] [place] [address] Blvd Unit #: [id number] Loc: [place] [address] Phys: Nikia Benito TUTORING MANAGER Acct: [id number] Dis Date: Status: ADM IN PHONE #: [phone] Exam Date: 04/24/2020 1326 FAX #: [phone] Reason: SEVERE AORTIC STENOSIS. TAVR EVALUATION EXAMS: CPT CODE: [id number] CT ANGIO CHEST 66237 <Continued> Abdominal aorta just below the renal [...] 2 Signed Report (CONTINUED) Name: LOUIS PRITCHARD [facility] : 1945 Age/S: 75 / M [address] [place] [address] Blvd Unit #: [id number] Loc: [place] [address] Phys: Nikia Benito NP Acct: [id number] Dis Date:Status: ADM IN PHONE #: [phone] Exam Date: 04/24/2020 1326 FAX #: [phone] Reason: SEVERE AORTIC STENOSIS. TAVR EVALUATION EXAMS: CPT CODE: [id number] CT ANGIO CHEST 22224 <Continued>CC: Sabine Adler DO; Gage Turner MD; Nikia Zuniga NP Technologist:RT Misa(R)(CT) CTDI: DLP: Trnscb Date/Time: 04/24/2020 (144) [email or web address] Orig Print D/T: S: 04/24/2020 (1445) PAGE 3 Signed Report- CTA ABD PEL W [id number] 14:45:00 [facility] : 1945 Sex: M Name: LOUIS PRITCHARD [facility] : 10/1944 Age/S: 75 / M [address] [place] [address] Blvd Unit #: [id number] Loc: [place] [address] Phys: Nikia Vaughn TUTORING MANAGER Acct: [id number] Dis Date: Status: ADM IN PHONE #: [phone] Exam Date: 04/24/2020 1326 FAX #: [phone]: SEVERE AORTIC STENOSIS. TAVR EVALUATION EXAMS: CPT CODE: [id number] CTA ABD PEL W CONT 03837 CHEST, ABDOMEN AND PELVIS CT ANGIOGRAM WITH [...] 1 Signed Report (CONTINUED) Name: LOUIS PRITCHARD [facility] : 1945 Age/S: 75 / M [address] [place] [address] Blvd Unit #: [id number] Loc: [place] [address] Phys: Nikia Benito TUTORING MANAGER Acct: [id number] Dis Date: Status: ADM IN PHONE #: [phone] Exam Date: 04/24/2020 1326 FAX #: [phone] Reason: SEVERE AORTIC STENOSIS. TAVR EVALUATION EXAMS: CPT CODE: [id number] CTA ABD PEL W CONT 88045 <Continued> Abdominal aorta just below the renal [...] 2 Signed Report (CONTINUED) Name: LOUIS PRITCHARD [facility] : 1945 Age/S: 75 / M [address] [place] [address] Blvd Unit #: [id number] Loc: [place] [address] Phys: Nikia Benito NP Acct: [id number] Dis Date:Status: ADM IN PHONE #: [phone] Exam Date: 04/24/2020 1326 FAX #: [phone] Reason: SEVERE AORTIC STENOSIS. 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 [id number] 06:50:00 Test Item Value Reference Range Interpretation Comments GLUBED (test code = 108 MG/DL 70-110 N Performe d by certified GLUBED) 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 [id number] 20:54:00 Test Item Value Reference Range Interpretation Comments GLUBED (test code = 154 MG/DL 70-110 H Performe d by certified GLUBED) 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 [id number] 17:36:00 Test Item Value Reference Range Interpretation Comments GLUBED (test code = 122 MG/DL 70-110 H Performe d by certified GLUBED) 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 [id number] 12:14:00 Test Item Value Reference Range Interpretation Comments GLUBED (test code = 164 MG/DL 70-110 H Performe d by certified GLUBED) 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 [facility] - DUP EXTRACRANIAL [id number] 12:03:00 [facility] : 1945 Sex: M Name: LOUIS PRITCHARD [facility] : 10/1944 Age/S: 75 / M [address] [place], [place] [address]vd Unit #: [id number] Loc: [place] [address] Phys: Thad Christianson TUTORING MANAGER Acct: [id number] Dis Date: Status: ADM IN PHONE #: [phone] Exam Date: 04/23/20201136 FAX #: [phone]: syncope EXAMS: CPT CODE: [id number] DUP EXTRACRANIAL [place] [address]6492 CAROTID ULTRASOUND. INDICATION: Syncope COMPARISON:None. TECHNIQUE: Warner-scale, [...] occlusion High, low, or undetectable Variable SL: [id number] PAGE 1 Signed Report (CONTINUED) Name: LOUIS PRITCHARD [facility] : 1945 Age/S: 75 / M [address] [place] [address] Blvd Unit #: [id number] Loc: [place] [address] Phys: Thad Christianson NP Acct: [id number] Dis Date: Status: ADM IN PHONE #: [phone] Exam Date: 04/23/2020 1137 FAX #: [phone] Reason: syncope EXAMS: CPT CODE: [id number] DUP EXTRACRANIAL [place] 90237 <Continued> at 1203 Reported and signed by: Otf Ayon M.D. CC: [facility] DO; Thad Christianson TUTORING MANAGER; Gage Turner MD Technologist: Brock Guzman Trngab Date/Time: 04/23/2020 (1203) [email or web address] Orig Print D/T: S: 04/23/2020 (1207) Probe: PAGE 2 Signed ReportTOTAL IRON BINDING [id number] 08:54:00 Test Item Value Reference Range Interpretation Comments SERUM IRON (test code = IRON) 53 mcg/dL 35-150 N TOTAL IRON BINDING CAPACITY (test 191 mcg/dL 260-445 L code = TIBC) UIBC (test code = UIBC) 138 mcg/dL IRON SATURATION (test code = 27.7 % 14-34 N FESAT) VITAMIN [id number] 08:54:00 Test Item Value Reference Range Interpretation Comments VITAMIN B12 (test code = VITB12) 761 pg/mL 193-986 N [id number] 08:54:00 Test Item Value Reference Range Interpretation Comments FERRITIN (test code = MARTÍN) 4618.8 ng/mL 23.9-336.2 H - CT HEAD/BRAIN W/O [id number] 08:45:00 [facility] : 1945 Sex: M Name: LOUIS PRITCHARD [facility] : 10/1944 Age/S: 75 / M [address] [place] [address] Unit #: [id number] Loc: [place] [address] Phys: Thad Christianson TUTORING MANAGER Acct: [id number] Dis Date: Status: ADM IN PHONE #: [phone] Exam Date: 04/23/2020 08 FAX #: [phone]: syncope EXAMS: CPT CODE: [id number] CT HEAD/BRAIN W/O CONT 32622 CT HEAD WITHOUT CONTRAST INDICATION: Syncope. COMPARISON: [...] intact. IMPRESSION: No acute intracranial findings. SL: [id number] at 0845 Reported and signed by: Otf Ayon M.D. PAGE 1 Signed Report (CONTINUED) Name: LOUIS PRITCHARD [facility] : 1945 Age/S: 75 / M [address] [place] [address] Blvd Unit #: [id number] Loc: [place] [address] Phys: Thad Christianson NP Acct: [id number] Dis Date: Status: ADM IN PHONE #: [phone] Exam Date: 04/23/2020824 FAX #: [phone] Reason: syncopeEXAMS: CPT CODE: [id number] CT HEAD/BRAIN W/O CONT 62568 <Continued> CC: [facility] DO; Thad Christianson TUTORING MANAGER; Gage Turner MD Technologist:RT Marie(R)(CT) CTDI: DLP: Trnscb Date/Time: 04/23/2020 (0845) t.MEÑOR.SG9 Orig Print D/T: S: 04/23/2020 (0849) PAGE 2 Signed ReportGLUBED 2020-04-23 07:45:00 Test Item Value Reference Range Interpretation Comments GLUBED (test code = 95 MG/DL 70-110 N Performe d by certified GLUBED) 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 COMPREHENSIVE METABOLIC [id number] 06:30:00 Test Item Value Reference Range Interpretation [...] 0-100 N <100 (test code = LDL) IBWTOOG618 -129 NEAR OPTIMAL/ABOVE [id number] EBLADRTLDY573-1 89 HIGH>YO=158 VE RY HIGH*Guidelines provided by the National Choles terol EducationProgra m Adult Treatment Panel III [id number] 06:30:00 Test Item Value Reference Range Interpretation Comments PHOSPHOROUS (test code = PHOS) 3.8 MG/DL 2.5-4.9 N [id number] 06:30:00 Test Item Value Reference Range Interpretation Comments MAGNESIUM (test code = MAG) 2.30 mg/dL 1.80-2.40 N [id number] 06:30:00 Test Item Value Reference Range Interpretation Comments TROPONIN-I 1.599 ng/mL 0.000-0.045 Critical result called to (test code = yR ABBOTT y [facility] at [facility]) 62504/23/20Nu rse read back result and tech confirmed it's correct? Y ESNegative: <= 0.0 45 Positive: >= 0. 046 Correlation wit h serial results, other cardiac markers andclin ical findings is necessary to determine the clinicalsignifi cance of this result. Results using different metho dologies should not be c omparedto one another as santo titative results may dalia y by method. 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 [facility] [id number] 16:58:00 Test Item Value Reference Range Interpretation Comments GLUBED (test code = 112 MG/DL 70-110 H Performe d by certified GLUBED) 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 - XR CHEST 2 [id number] 12:43:00 [facility] : 1945 Sex: M FAX: Thad Christianson NP [phone] [place]: St: [facility] FAX: Gage Thao I [phone] Name: LOUIS PRITCHARD [facility] [place] : 1945 Age/S: 75/M [address] [place] [address] Unit #: [id number] Loc: G.[address] [place] [address] Phys: Thad Christianson NP Acct: [id number] Dis Date: Status: ADM IN PHONE #: [phone] Exam Date: 04/22/2020 1221 FAX #: [phone]: adm EXAMS: CPT CODE: [id number] XR CHEST 2 V 96734 PROCEDURE: Chest Radiograph. Clinical Indication: Severe aortic [...] atelectasis at the left lung base. SL: [facility] at 1243 Reported and signed by: Reuben Durbin M.D. CC: Thad Christianson TUTORING MANAGER; Gage Turner MD Technologist: RT Misty(R) Trnscrd Date/Time/By: 04/22/2020 (4727) : By: Nataly Orig Print D/T: S: 04/22/2020 (6143) PAGE 1 Signed [id number]%2020-04-22 12:01:00 Test Item Value Reference Range Interpretation Comments HGBA1C% (test code = HGBA1C%) 5.3 %A1C 4.8-6.0 N BASIC METABOLIC [id number] 10:50:00 Test Item Value Reference Range Interpretation [...] 9.9 mg/dL 8.0-10.5 N CA) HEPATIC FUNCTION [id number] 10:50:00 Test Item Value Reference Range Interpretation [...] 179 IUnit/L 20-125 H code = ALKP) [id number] 10:50:00 Test Item Value Reference Range Interpretation Comments MAGNESIUM (test code = MAG) 2.29 mg/dL 1.80-2.40 N TSH REFLEX TO [id number] 10:50:00 Test Item Value Reference Range Interpretation Comments TSH REFLEX TO FT4 (test code = 0.82 IU/mL 0.42-5.47 N TSHREFLEX) CBC W/O [id number] 10:30:00 Test Item Value Reference Range Interpretation [...] code 11.1 fL 7.0-9.0 H = MPV) [id number] 06:52:00 Test Item Value Reference Range Interpretation Comments GLUBED (test code = 108 MG/DL 70-110 N Performe d by certified GLUBED) 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
[2020-08-12 15:43] LABS: Absolute Lymphocytes (CBC) 0.6 K/uL (0.7-4.9); Basophils % 1.3 % (0-1.3); Hematocrit 28.6 % (39.6-49.0); Lymphocytes % 12.8 % (15.3-44.8); MPV 8.8 fL (7.6-11.3); RBC Red Blood Cell Count 2.91 M/uL (4.33-5.43)
[2020-08-12 16:02] LABS: Albumin 3.2 g/dL (3.4-5.0); Bilirubin Total 0.9 mg/dL (0.2-1.0); Potassium 3.3 mmol/L (3.5-5.1); Protein, Total 6.8 g/dL (6.4-8.2)
--- NOTE | 2020-08-12 16:09 | RAD REPORT ---
EXAM DESCRIPTION: CT - Head Brain Wo Cont - 08/12/2020 3:51 pm CLINICAL HISTORY: Head injury with headache COMPARISON: None TECHNIQUE: Computed axial tomography of the head was obtained. IV contrast was not requested. All CT scans are performed using dose optimization technique as appropriate and may include automated exposure control or mA/KV adjustment according to patient size. FINDINGS: An intracranial bleed is not seen . The ventricles are normal in caliber. No extra-axial fluid collection is noted. . Prominent vascular calcifications. Fluid within the sinuses/ mastoids is not seen. IMPRESSION: No acute intracranial abnormality is seen. If patient's symptoms persist MRI of the bra in would be recommended.
--- NOTE | 2020-08-12 16:20 | RAD REPORT ---
EXAM DESCRIPTION: CTOrbits Wo Con W/ Mpr08/12/2020 3:51 pm CLINICAL HISTORY: Left eye swelling COMPARISON: None. TECHNIQUE: Computed axial tomography of the sinuses were obtained with coronal and sagittal reconstr uction. All CT scans are performed using dose optimization technique as appropriate and may include automated exposure control or mA/KV adjustment according to patient size. FINDINGS: Left preseptal swelling is present. The left globe is normal size density. The periorbital fat is clear. Extra-ocular muscles normal in size and density. Optic nerves appear symmetric. The left superior ophthalmic vein is dilated. Orbital apex appears clear Fluid within the sinuses is not noted IMPRESSION: Left preseptal swelling may be secondary to inflammation or trauma. A dilated left superior ophthalmic vein is present MRI of the brain and orbits recommended for psychiatric hospital r evaluation
[2020-08-12 16:32] LABS: Protime INR 1.31
[2020-08-12 18:00] LABS: Anisocytosis 2+; Blood Morphology Comment NOTED (NOT SEEN); Ovalocytes SLIGHT; Platelet Estimate DECR; Poikilocytosis SLIGHT; Teardrop Cell FEW; White Blood Cell Scan OK (OK)
--- NOTE | 2020-08-12 18:12 | EDPHYS ---
Physician Documentation [facility] Name: Jodi Steve Age: 75 yrs Sex: Male : 1945 Arrival Date: 08/12/2020 Time: 14:51 Bed 20 Private MD: ED Physician Nicholas Wagner HPI: 08/12 15:21 This 75 yrs old Male presents to ER via Wheelchair with complaints of Eye pm1 redness and swelling. 15:21 The patient is experiencing redness, swelling, The patient sustained Unknown. to the pm1 left eye, caused by an unknown mechanism. Onset: The symptoms/episode began/occurred this morning, woke up with redness to left eye. Duration: the symptoms are continuous. Aggravated by nothing. Alleviated by nothing. Associated signs and symptoms: Pertinent positives: occasional blurry vision. No blurry vision present now. Patient without vision correction. Patient takes Plavix and ASA, Pertinent negatives: pain. Patient does not utilize any form of vision correction. Severity of symptoms: in the emergency department the symptoms are unchanged Pain is currently a 0 / 10. The patient has not experienced similar symptoms in the past. The patient has not recently seen a physician. Historical: - Allergies: 15:06 No Known Allergies; ca1 - PMHx: 15:06 Diabetes - NIDDM; Hypertension; Renal Disease; CAD; ca1 - PSHx: 15:06 CABG; BKA; ca1 - Immunization history:: Adult Immunizations up to date, Client reports receiving the 2nd dose of the Covid vaccine, Client reports receiving the 1st dose of the Covid vaccine, Pneumococcal vaccine is up to date, Flu vaccine is up to date. - Social history:: Smoking status: Patient denies any tobacco usage or history of. ROS: 15:21 Constitutional: Negative for fever, chills, and weight loss. pm1 15:21 ENT: Negative for injury, pain, and discharge, Cardiovascular: Negative for chest pain, palpitations, and edema, Respiratory: Negative for shortness of breath, cough, wheezing, and pleuritic chest pain, Abdomen/GI: Negative for abdominal pain, nausea, vomiting, diarrhea, and constipation, Back: Negative for injury and pain, MS/Extremity: Negative for injury and deformity, Skin: Negative for injury, rash, and discoloration. 15:21 Neuro: Negative for headache, weakness, numbness, tingling, and seizure. 15:21 Eyes: Positive for blurry vision, redness, swelling, Negative for discharge, foreign body sensation, pain, vision loss. Exam: 15:21 Constitutional: This is a well developed, well nourished patient who is awake, alert, pm1 and in no acute distress. 15:21 Skin: Warm, dry with normal turgor. Normal color with no rashes, no lesions, and no evidence of cellulitis. 15:21 Head/face: Noted is no obvious of injury or deformity except contusion, that is superficial, of the right cheek and left eye. 15:21 Eyes: Periorbital structures: swelling, on the left upper eyelid and left lower eyelid, Pupils: equal, round, and reactive to light and accomodation, Extraocular movements: intact throughout, Conjunctiva: chemosis, that is moderate, in left eye, Corneas: no acute changes. 15:21 ENT: Mouth: Lips: normal, Oral mucosa: normal, pink and intact, moist. 15:21 Cardiovascular: Rate: normal, Rhythm: regular, Pulses: no pulse deficits are appreciated, Edema: is not appreciated. 15:21 Respiratory: Exam negative for acute changes, respiratory distress, shortness of breath. 15:21 Musculoskeletal/extremity: Extremities: grossly normal except: bilateral BKA. 15:21 Neuro: Orientation: is normal, Mentation: is normal, Motor: is normal, moves all fours. Vital Signs: 14:52 BP 123 / 60; Pulse 95; Resp 17 S; Temp 97.6(O); Pulse Ox 100% on R/A; Weight 60 kg; ca1 16:00 BP 124 / 72; Pulse 89; Resp 18; Pulse Ox 100% ; rb3 17:00 BP 135 / 77; Pulse 88; Resp 18; Pulse Ox 100% ; rb3 18:00 BP 134 / 81; Pulse 95; Resp 17; Pulse Ox 100% ; rb3 Visual Acuity: 17:35 Left Eye Visual acuity 20/40, ; Right Eye Visual acuity 20/50, ; Both Eyes Visual ll1 acuity 20/40; Without Lenses; MDM: 15:08 Patient medically screened. [facility] 16:40 Data reviewed: vital signs. Data interpreted: Pulse oximetry: on room air is 100 %. pm1 Interpretation: normal. 17:58 Physician consultation: Bryant Antonio MD was called at 17:58, was contacted at 17:58, pm1 regarding consult, patient's condition, Discussed HPI, eye examination, lab findings, and CT Results. Patient without any current vision changes and no pain. Transfer is not needed. MRI of the brain and orbits is not needed. Impression is likely traumatic chemosis and dilation of the left superior opthalmic vein is incidental and does not cause chemosis. Patient needs reassurance that chemosis will resolve on its own without intervention and he can follow up in the office about 1 week. No medications recommended. Return precautions for worsening of symptoms. 18:08 Counseling: I had a detailed discussion with the patient and/or guardian regarding: the pm1 historical points, exam findings, and any diagnostic results supporting the discharge/admit diagnosis, lab results, radiology results, the need for outpatient follow up, an opthalmologist, in about 1 week as I discussed with Dr. Antonio. 08/12 15:19 Order name: CBC with Diff; Complete Time: 18:12 pm1 08/12 15:19 Order name: CMP; Complete Time: 16:08 pm1 08/12 15:19 Order name: CT Head Brain wo Cont; Complete Time: 16:12 pm1 08/12 15:19 Order name: PT-INR; Complete Time: 16:40 pm1 08/12 15:19 Order name: Ptt, Activated; Complete Time: 16:40 pm1 08/12 18:00 Order name: CBC Smear Scan; Complete Time: 18:12 EDMS 08/12 15:19 Order name: IV Saline Lock; Complete Time: 15:35 pm1 08/12 15:22 Order name: Orbits Wo Con W/ Mpr; Complete Time: 16:40 EDMS 08/12 16:45 Order name: Visual Acuity; Complete Time: 18:05 pm1 Administered Medications: No medications were administered Disposition: 08/12/20 18:11 Discharged to Home. Impression: Chemosis - Left eye, Contusion of left eyelid and periocular area. - Condition is Stable. - Discharge Instructions: Eye Contusion. - Medication Reconciliation Form, Thank You Letter, Antibiotic Education, Prescription Opioid Use form. - Follow up: Emergency Department; When: As needed; Reason: Worsening of condition. Follow up: Bryant Antonio MD; When: 1 week. - Problem is new. - Symptoms have improved. Addendum: 08/14/2020 07:16 Co-signature as Attending Physician, Nicholas Wagner MD I agree with the assessment and c laura plan of care. Signatures: Dispatcher [employer] EDNicholas Gomez MD MD cha Marinas, Patrick, HAT DESIGNER HAT DESIGNER pm1 Bella Morrison, RN RN ca1 Ana Wolf RN RN rb3 Corrections: (The following items were deleted from the chart) 08/12 18:11 18:11 08/12/2020 18:11 Discharged to Home. Impression: Chemosis - Left eye; Contusion pm1 of left eyelid and periocular area. Condition is Stable. Forms are Medication Reconciliation Form, Thank You Letter, Antibiotic Education, Prescription Opioid Use. Follow up: Emergency Department; When: As needed; Reason: Worsening of condition. Follow up: Bryant Antonio; When: 1 week. pm1 18:33 18:11 08/12/2020 18:11 Discharged to Home. Impression: Chemosis - Left eye; Contusion rb3 of left eyelid and periocular area. Condition is Stable. Forms are Medication Reconciliation Form, Thank You Letter, Antibiotic Education, Prescription Opioid Use. Follow up: Emergency Department; When: As needed; Reason: Worsening of condition. Follow up: Bryant Antonio; When: 1 week. Problem is new. Symptoms have improved. pm1
--- NOTE | 2020-08-12 18:12 | ER ---
Nurse's Notes [facility] Name: Jodi Steve Age: 75 yrs Sex: Male : 1945 Arrival Date: 08/12/2020 Time: 14:51 Bed 20 Private MD: Diagnosis: Chemosis - Left eye;Contusion of left eyelid and periocular area Presentation: 08/12 14:52 Acuity: ELYSE 2 ca1 14:52 Chief complaint: Patient states: Denies injury to L eye. Pt reports woke up this ca1 morning at 0700 with bruising around L eye, Redness, swelling. Denies Loss of Vision. Reports blurry vision. Coronavirus screen: Client denies travel out of the [place] in the last 14 days. At this time, the client does not indicate any symptoms associated with coronavirus-19. Ebola Screen: Patient negative for fever greater than or equal to 101.5 degrees Fahrenheit, and additional compatible Ebola Virus Disease symptoms Patient denies exposure to infectious person. Patient denies travel to an Ebola-affected area in the 21 days before illness onset. No symptoms or risks identified at this time. Initial Sepsis Screen: Does the patient meet any 2 criteria? No. Patient's initial sepsis screen is negative. Does the patient have a suspected source of infection? No. Patient's initial sepsis screen is negative. Risk Assessment: Do you want to hurt yourself or someone else? Patient reports no desire to harm self or others. Onset of symptoms was August 12, 2020. 14:52 Method Of Arrival: Wheelchair ca1 Historical: - Allergies: 15:06 No Known Allergies; ca1 - PMHx: 15:06 Diabetes - NIDDM; Hypertension; Renal Disease; CAD; ca1 - PSHx: 15:06 CABG; BKA; ca1 - Immunization history:: Adult Immunizations up to date, Client reports receiving the 2nd dose of the Covid vaccine, Client reports receiving the 1st dose of the Covid vaccine, Pneumococcal vaccine is up to date, Flu vaccine is up to date. - Social history:: Smoking status: Patient denies any tobacco usage or history of. Screenin:55 Abuse screen: Denies threats or abuse. Nutritional screening: No deficits noted. rb3 Tuberculosis screening: No symptoms or risk factors identified. Fall Risk Fall in past 12 months (25 points). Secondary diagnosis (15 points) impaired mobility, No IV (0 pts). Ambulatory Aid- None/Bed Rest/Nurse Assist (0 pts). Gait- Normal/Bed Rest/Wheelchair (0 pts) Mental Status- Oriented to own ability (0 pts). Total Paz Fall Scale indicates Low Risk Score (25-44 pts). Fall prevention measures have been instituted. Side Rails Up X 2 Placed close to Nursing Station 1:1 attendant Assigned to Pt. Frequent Obs/Assesments occuring Family Present and informed to notify staff if they need to leave bedside As available Patient and Family Educated on Fall Prevention Program and strategies. Assessment: 14:55 General: Appears in no apparent distress. Behavior is calm, cooperative. Pain: Denies rb3 pain. Neuro: Level of Consciousness is awake, alert, obeys commands, Oriented to person, place, time. Cardiovascular: Patient's skin is warm and dry. Respiratory: Airway is patent Respiratory effort is even, unlabored, Respiratory pattern is regular, symmetrical. GI: No signs and/or symptoms were reported involving the gastrointestinal system. : No signs and/or symptoms were reported regarding the genitourinary system. EENT: Eyes Bruising and swelling noted around the left eye, dark purple. Conjunctiva is purple and swollen as well. Pt. reports blurred vision. Denies injury to the left eye.. Musculoskeletal: Amputation of right and left legs. 15:39 Reassessment: Patient appears in no apparent distress at this time. No changes from rb3 previously documented assessment. 16:49 Reassessment: Patient appears in no apparent distress at this time. Patient and/or rb3 family updated on plan of care and expected duration. Pain level reassessed. Patient is alert, oriented x 3, equal unlabored respirations, skin warm/dry/pink. 17:47 Reassessment: Patient appears in no apparent distress at this time. No changes from rb3 previously documented assessment. 18:30 Reassessment: Patient appears in no apparent distress at this time. Patient and/or rb3 family updated on plan of care and expected duration. Pain level reassessed. Patient is alert, oriented x 3, equal unlabored respirations, skin warm/dry/pink. Patient denies pain at this time. Vital Signs: 14:52 BP 123 / 60; Pulse 95; Resp 17 S; Temp 97.6(O); Pulse Ox 100% on R/A; Weight 60 kg; ca1 16:00 BP 124 / 72; Pulse 89; Resp 18; Pulse Ox 100% ; rb3 17:00 BP 135 / 77; Pulse 88; Resp 18; Pulse Ox 100% ; rb3 18:00 BP 134 / 81; Pulse 95; Resp 17; Pulse Ox 100% ; rb3 Visual Acuity: 17:35 Left Eye Visual acuity 20/40, ; Right Eye Visual acuity 20/50, ; Both Eyes Visual ll1 acuity 20/40; Without Lenses; ED Course: 14:51 Patient arrived in ED. bp1 14:55 Patient has correct armband on for positive identification. Bed in low position. Call rb3 light in reach. Side rails up X 1. Pulse ox on. NIBP on. Warm blanket given. 15:05 Triage completed. ca1 15:06 Arm band placed on Patient placed in an exam room, on a stretcher. ca1 15:07 Hernan Carpio NP is PHCP. pm1 15:07 Nicholas Wagner MD is Attending Physician. pm1 15:28 Ana Wolf, JULIO is Primary Nurse. rb3 15:35 Inserted saline lock: 20 gauge in right antecubital area, using aseptic technique. dh4 Blood collected. 15:51 CT Head Brain wo Cont In Process Unspecified. EDMS 15:51 Orbits Wo Con W/ Mpr In Process Unspecified. EDMS 18:11 Bryant Antonio MD is Referral Physician. pm1 18:31 No provider procedures requiring assistance completed. IV discontinued, intact, rb3 bleeding controlled, No redness/swelling at site. Pressure dressing applied. Administered Medications: No medications were administered Outcome: 18:11 Discharge ordered by . pm1 18:31 Discharged to home via wheelchair, with family. rb3 18:31 Condition: stable 18:31 Discharge instructions given to patient, Instructed on discharge instructions, follow up and referral plans. Demonstrated understanding of instructions, follow-up care, Prescriptions given X none 18:33 Patient left the ED. rb3 Signatures: Dispatcher [employer] EDMS Hernan Carpio NP ACUPRESSURE THERAPIST pm1 Bella Morrison RN RN ca1 Tod Sharif dh4 Americo Joe RN RN ll1 PaniaVeronika ledesma, Ana, RN RN rb3
[2020-08-12 18:41] VITALS: TEMP 97.6; O2SAT 100
[2020-08-12 18:45] VITALS: BP 134/81
== END 2020-08-12 18:33 | disposition home or self-care (01) ==
LOC: ER 14:42
DX: S00.12XA Contusion of left eyelid and periocular area, initial encounter (principal); H11.422 Conjunctival edema, left eye; E11.9 Type 2 diabetes mellitus without complications; I10 Essential (primary) hypertension; I25.10 Atherosclerotic heart disease of native coronary artery without angina pectoris; Z95.1 Presence of aortocoronary bypass graft; Z89.519 Acquired absence of unspecified leg below knee; X58.XXXA Exposure to other specified factors, initial encounter
CPT/HCPCS: 36415; 70450; 70480; 76377; 80053; 85025; 85610; 85730; 99284

== ENCOUNTER 2020-08-13 21:45 | Inpatient (IN) | payer OTHER ==
--- OUTSIDE RECORDS SUMMARY | 2020-08-13 21:50 | XMS REPORT | Continuity of Care Document ---
:1945 Author Organization [facility] t Address [address] [place] [address] Care Team Providers Name Role Phone EVELIN [...] Allergie 2-06 Clear s 00:00: Rocha 00 [facility] Medications This patient has no known medications. Procedures Procedure Date / Time Performed Performing Clinician Sourc e [id number] 2020-07-10 00:00:00 ENCPL [id number] 2020-07-10 00:00:00 ENCPL Encounters Start End Encounter Admission Attending Care Care Encounter Source Date/Time Date/Time Type Type Clinicians Facility Department ID 2020-03-29 Outpatient MHSE CAR [id number] MH 10:59:41 [facility] 2020-07-27 2020-07-27 Outpatient READMISSIO EVELIN ENCCLR ENCCLR [id number] ENCCLR 00:00:00 00:00:00 RAMY LARKIN 2020-06-26 2020-06-26 Emergency [facility] [id number] 09:15:00 11:28:00 Alberto Bonilla [id number] [place] 4.2.7.2.686 [place] [id number] 2020-05-24 2020-05-24 Outpatient READMISSIO RAMÓN, ENCCLR ENCCLR [id number] ENCCLR 00:00:00 00:00:00 Maurizio DELUCA 2020-04-20 2020-04-20 Emergency [facility] [id number] 02:44:00 05:48:00 Marky Bonilla [id number] [place] 4.2.7.2.686 [place] [id number] 2020-04-19 2020-04-19 Kinjal Fisher [id number] 00:00:00 00:00:00 of Care Donna Valencia [id number] [place] 4.2.7.2.686 [id number] 2020-04-092020-04-18 [facility] Alberto Ruelas [id number] 12:29:00 19:45:00 Encounter Alfredo Khan [id number] Mere Swain [facility] 4.2.7.2.686 Alfredo Khan [id number] Mere Swain 090 Alfredo Khan 2020-04-14 2020-04-14 Telephone Carolyn Disla [id number] 00:00:00 00:00:00 Terrence Long [id number] [facility] 4.2.7.2.686 [id number] 2020-03-16 2020-03-16 Outpatient MHSE CAR [id number] MH 09:06:00 09:06:00 [facility] 2020-03-14 2020-03-14 Office [facility] [id number] 09:32:42 10:30:27 Visit kraig, SPECIALTY 350.1.13.10 [facility] 4.2.7.2.686 CENTER AT [phone] GLENN Romano [facility] Results Test Description Test Time Test Comments Results Result Comments Source GLUBED 2020-04-28 15:12:00 Test Item Value Reference Range Interpretation Comme nts GLUBED (test code = GLUBED) 140 MG/DL 70-110 H Performed by certified 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 [facility] CBC W/AUTO [id number] 08:41:00 Test Item Value Reference Range Interpretation [...] (test code NO = MDIFF) BASIC METABOLIC [id number] 08:08:00 Test Item Value Reference Range Interpretation [...] code = 9.5 mg/dL 8.0-10.5 N CA) [id number] 08:08:00 Test Item Value Reference Range Interpretation Comments MAGNESIUM (test code = MAG) 2.83 mg/dL 1.80-2.40 H [id number] 06:49:00 Test Item Value Reference Range Interpretation Comments GLUBED (test code = 87 MG/DL 70-110 N Performe d by certified GLUBED) 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 [id number] 11:37:00 Test Item Value Reference Range Interpretation Comments MAGNESIUM (test code = MAG) 1.57 mg/dL 1.80-2.40 L CBC W/AUTO [id number] 04:35:00 Test Item Value Reference Range Interpretation [...] MDIFF) CONSISTE NT WITH AUTO DIFF. PLT [id number] 04:35:00 Test Item Value Reference Range Interpretation Comments PLATELET ESTIMATE (test code 80-100 THOUSAND ADEQUATE = PLTEST) PLATELET MORPHOLOGY (test NORMAL code = PLTMORPH) CBC W/AUTO [id number] 04:34:00 Test Item Value Reference Range Interpretation [...] MDIFF) CONSISTE NT WITH AUTO DIFF. PLT [id number] 04:34:00 Test Item Value Reference Range Interpretation Comments PLATELET ESTIMATE (test code = THOUSAND ADEQUATE PLTEST) CBC W/AUTO [id number] 04:34:00 Test Item Value Reference Range Interpretation [...] MDIFF) CONSISTE NT WITH AUTO DIFF. PLT [id number] 04:34:00 Test Item Value Reference Range Interpretation Comments PLATELET ESTIMATE (test code = THOUSAND ADEQUATE PLTEST) BASIC METABOLIC [id number] 04:05:00 Test Item Value Reference Range Interpretation [...] 8.8 mg/dL 8.0-10.5 N CA) CBC W/AUTO [id number] 03:57:00 Test Item Value Reference Range Interpretation [...] MANUAL DIFF REQUIRED (test code = MDIFF) [id number] 20:52:00 Test Item Value Reference Range Interpretation Comments GLUBED (test code = 107 MG/DL 70-110 N Performe d by certified GLUBED) 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 [id number] 15:17:00 Test Item Value Reference Range Interpretation Comments GLUBED (test code = 103 MG/DL 70-110 N Performe d by certified GLUBED) 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 [id number] 14:34:00 Test Item Value Reference Range Interpretation Comments GLUBED (test code = 129 MG/DL 70-110 H Performe d by certified GLUBED) 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 [id number] 13:50:00 Test Item Value Reference Range Interpretation Comments SODIUM (test code = NA/ABG) MEQ/L 134-147 [id number] 13:50:00 Test Item Value Reference Range Interpretation Comments POTASSIUM (test code = K/ABG) MEQ/L 3.4-5.0 CREATININE [id number] 13:50:00 Test Item Value Reference Range Interpretation Comments CREATININE ABG (test code = CREAABG) mg/dL 0.8-1.3 [id number] 13:50:00 Test Item Value Reference Range Interpretation Comments HEMOGLOBIN (test code = HGB/ABG) G/DL 12.5-16.9 [id number] 13:50:00 Test Item Value Reference Range Interpretation Comments HEMATOCRIT (test code = HCT/ABG) % 37.5-50.7 POC IONIZED [id number] 13:50:00 Test Item Value Reference Range Interpretation Comments POC IONIZED CALCIUM (test code = MMOL/L 1.12-1.32 POCCA) POC LACTIC [id number] 13:50:00 Test Item Value Reference Range Interpretation Comments POC LACTIC ACID (test code = POCLAC) mmol/l 0.9-1.7 POC [id number] 13:50:00 Test Item Value Reference Range Interpretation Comments POC GLUCOSE (test code = POCGLU) MG/DL 70-110 POC VENOUS BLOOD [id number] 13:50:00 Test Item Value Reference Range Interpretation Comments POC VENOUS BLOOD GAS PH (test 7.411 7.33-7.45 N code = POCPHV) POC VENOUS BLOOD GAS PCO2 (test 48.6 mmHg 43-47 H code = HGHIPQ2R) POC VENOUS BLOOD GAS PO2 (test 42.5 mmHG 10-50 N code = LHUMU8V) POC TCO2 VENOUS (test code = 32.4 RHNMYQ9Z) POC HCO3 VENOUS (test code = 30.9 MMOL/L 22-27 H TKIBFP8R) POC BASE EXCESS VENOUS (test code 5.6 MMOL/L -4.0-4.0 H = POCBEV) POC O2 SATURATION VENOUS (test 77.7 % 60-80 N code = SZTQ9OI) [id number] 13:50:00 Test Item Value Reference Range Interpretation Comments CHLORIDE (test code = CL/VBG) MEQ/L [id number] 13:50:00 Test Item Value Reference Range Interpretation Comments SODIUM (test code = NA/ABG) 137 MEQ/L 134-147 N [id number] 13:50:00 Test Item Value Reference Range Interpretation Comments POTASSIUM (test code = K/ABG) MEQ/L 3.4-5.0 CREATININE [id number] 13:50:00 Test Item Value Reference Range Interpretation Comments CREATININE ABG (test code = CREAABG) mg/dL 0.8-1.3 [id number] 13:50:00 Test Item Value Reference Range Interpretation Comments HEMOGLOBIN (test code = HGB/ABG) G/DL 12.5-16.9 [id number] 13:50:00 Test Item Value Reference Range Interpretation Comments HEMATOCRIT (test code = HCT/ABG) % 37.5-50.7 POC IONIZED [id number] 13:50:00 Test Item Value Reference Range Interpretation Comments POC IONIZED CALCIUM (test code = MMOL/L 1.12-1.32 POCCA) POC LACTIC [id number] 13:50:00 Test Item Value Reference Range Interpretation Comments POC LACTIC ACID (test code = POCLAC) mmol/l 0.9-1.7 POC [id number] 13:50:00 Test Item Value Reference Range Interpretation Comments POC GLUCOSE (test code = POCGLU) MG/DL 70-110 POC VENOUS BLOOD [id number] 13:50:00 Test Item Value Reference Range Interpretation Comments POC VENOUS BLOOD GAS PH (test 7.411 7.33-7.45 N code = POCPHV) POC VENOUS BLOOD GAS PCO2 (test 48.6 mmHg 43-47 H code = JTCKAR9L) POC VENOUS BLOOD GAS PO2 (test 42.5 mmHG 10-50 N code = MXUUT4U) POC TCO2 VENOUS (test code = 32.4 IPZAHT8C) POC HCO3 VENOUS (test code = 30.9 MMOL/L 22-27 H XRXNIX0E) POC BASE EXCESS VENOUS (test code 5.6 MMOL/L -4.0-4.0 H = POCBEV) POC O2 SATURATION VENOUS (test 77.7 % 60-80 N code = TIBH0VC) [id number] 13:50:00 Test Item Value Reference Range Interpretation Comments CHLORIDE (test code = CL/VBG) MEQ/L [id number] 13:50:00 Test Item Value Reference Range Interpretation Comments SODIUM (test code = NA/ABG) 137 MEQ/L 134-147 N [id number] 13:50:00 Test Item Value Reference Range Interpretation Comments POTASSIUM (test code = K/ABG) 3.5 MEQ/L 3.4-5.0 N CREATININE [id number] 13:50:00 Test Item Value Reference Range Interpretation Comments CREATININE ABG (test code = CREAABG) mg/dL 0.8-1.3 [id number] 13:50:00 Test Item Value Reference Range Interpretation Comments HEMOGLOBIN (test code = HGB/ABG) G/DL 12.5-16.9 [id number] 13:50:00 Test Item Value Reference Range Interpretation Comments HEMATOCRIT (test code = HCT/ABG) % 37.5-50.7 POC IONIZED [id number] 13:50:00 Test Item Value Reference Range Interpretation Comments POC IONIZED CALCIUM (test code = MMOL/L 1.12-1.32 POCCA) POC LACTIC [id number] 13:50:00 Test Item Value Reference Range Interpretation Comments POC LACTIC ACID (test code = POCLAC) mmol/l 0.9-1.7 POC [id number] 13:50:00 Test Item Value Reference Range Interpretation Comments POC GLUCOSE (test code = POCGLU) MG/DL 70-110 POC VENOUS BLOOD [id number] 13:50:00 Test Item Value Reference Range Interpretation Comments POC VENOUS BLOOD GAS PH (test 7.411 7.33-7.45 N code = POCPHV) POC VENOUS BLOOD GAS PCO2 (test 48.6 mmHg 43-47 H code = TXSOLI8A) POC VENOUS BLOOD GAS PO2 (test 42.5 mmHG 10-50 N code = WFEFK7W) POC TCO2 VENOUS (test code = 32.4 ONNLJZ4P) POC HCO3 VENOUS (test code = 30.9 MMOL/L 22-27 H QHRCJS9J) POC BASE EXCESS VENOUS (test code 5.6 MMOL/L -4.0-4.0 H = POCBEV) POC O2 SATURATION VENOUS (test 77.7 % 60-80 N code = DZQT4WL) [id number] 13:50:00 Test Item Value Reference Range Interpretation Comments CHLORIDE (test code = CL/VBG) MEQ/L [id number] 13:50:00 Test Item Value Reference Range Interpretation Comments SODIUM (test code = NA/ABG) 137 MEQ/L 134-147 N [id number] 13:50:00 Test Item Value Reference Range Interpretation Comments POTASSIUM (test code = K/ABG) 3.5 MEQ/L 3.4-5.0 N CREATININE [id number] 13:50:00 Test Item Value Reference Range Interpretation Comments CREATININE ABG (test code = CREAABG) mg/dL 0.8-1.3 [id number] 13:50:00 Test Item Value Reference Range Interpretation Comments HEMOGLOBIN (test code = HGB/ABG) G/DL 12.5-16.9 [id number] 13:50:00 Test Item Value Reference Range Interpretation Comments HEMATOCRIT (test code = HCT/ABG) % 37.5-50.7 POC IONIZED [id number] 13:50:00 Test Item Value Reference Range Interpretation Comments POC IONIZED CALCIUM (test code = 1.18 MMOL/L 1.12-1.32 N POCCA) POC LACTIC [id number] 13:50:00 Test Item Value Reference Range Interpretation Comments POC LACTIC ACID (test code = POCLAC) mmol/l 0.9-1.7 POC [id number] 13:50:00 Test Item Value Reference Range Interpretation Comments POC GLUCOSE (test code = POCGLU) MG/DL 70-110 POC VENOUS BLOOD [id number] 13:50:00 Test Item Value Reference Range Interpretation Comments POC VENOUS BLOOD GAS PH (test 7.411 7.33-7.45 N code = POCPHV) POC VENOUS BLOOD GAS PCO2 (test 48.6 mmHg 43-47 H code = JRYXBV2N) POC VENOUS BLOOD GAS PO2 (test 42.5 mmHG 10-50 N code = BCTMM8R) POC TCO2 VENOUS (test code = 32.4 IWWQLQ8L) POC HCO3 VENOUS (test code = 30.9 MMOL/L 22-27 H HWJHVT8U) POC BASE EXCESS VENOUS (test code 5.6 MMOL/L -4.0-4.0 H = POCBEV) POC O2 SATURATION VENOUS (test 77.7 % 60-80 N code = MUQJ6YU) [id number] 13:50:00 Test Item Value Reference Range Interpretation Comments CHLORIDE (test code = CL/VBG) MEQ/L [id number] 13:50:00 Test Item Value Reference Range Interpretation Comments SODIUM (test code = NA/ABG) 137 MEQ/L 134-147 N [id number] 13:50:00 Test Item Value Reference Range Interpretation Comments POTASSIUM (test code = K/ABG) 3.5 MEQ/L 3.4-5.0 N CREATININE [id number] 13:50:00 Test Item Value Reference Range Interpretation Comments CREATININE ABG (test code = CREAABG) mg/dL 0.8-1.3 [id number] 13:50:00 Test Item Value Reference Range Interpretation Comments HEMOGLOBIN (test code = HGB/ABG) G/DL 12.5-16.9 [id number] 13:50:00 Test Item Value Reference Range Interpretation Comments HEMATOCRIT (test code = HCT/ABG) % 37.5-50.7 POC IONIZED [id number] 13:50:00 Test Item Value Reference Range Interpretation Comments POC IONIZED CALCIUM (test code = 1.18 MMOL/L 1.12-1.32 N POCCA) POC LACTIC [id number] 13:50:00 Test Item Value Reference Range Interpretation Comments POC LACTIC ACID (test code = POCLAC) mmol/l 0.9-1.7 POC [id number] 13:50:00 Test Item Value Reference Range Interpretation Comments POC GLUCOSE (test code = POCGLU) 101 MG/DL 70-110 N POC VENOUS BLOOD [id number] 13:50:00 Test Item Value Reference Range Interpretation Comments POC VENOUS BLOOD GAS PH (test 7.411 7.33-7.45 N code = POCPHV) POC VENOUS BLOOD GAS PCO2 (test 48.6 mmHg 43-47 H code = ZVBSDZ1R) POC VENOUS BLOOD GAS PO2 (test 42.5 mmHG 10-50 N code = MKBKA9X) POC TCO2 VENOUS (test code = 32.4 IEBATY4T) POC HCO3 VENOUS (test code = 30.9 MMOL/L 22-27 H FBQXRN0F) POC BASE EXCESS VENOUS (test code 5.6 MMOL/L -4.0-4.0 H = POCBEV) POC O2 SATURATION VENOUS (test 77.7 % 60-80 N code = GNXC0ZC) [id number] 13:50:00 Test Item Value Reference Range Interpretation Comments CHLORIDE (test code = CL/VBG) MEQ/L [id number] 13:50:00 Test Item Value Reference Range Interpretation Comments SODIUM (test code = NA/ABG) 137 MEQ/L 134-147 N [id number] 13:50:00 Test Item Value Reference Range Interpretation Comments POTASSIUM (test code = K/ABG) 3.5 MEQ/L 3.4-5.0 N CREATININE [id number] 13:50:00 Test Item Value Reference Range Interpretation Comments CREATININE ABG (test code = CREAABG) mg/dL 0.8-1.3 [id number] 13:50:00 Test Item Value Reference Range Interpretation Comments HEMOGLOBIN (test code = HGB/ABG) G/DL 12.5-16.9 [id number] 13:50:00 Test Item Value Reference Range Interpretation Comments HEMATOCRIT (test code = HCT/ABG) % 37.5-50.7 POC IONIZED [id number] 13:50:00 Test Item Value Reference Range Interpretation Comments POC IONIZED CALCIUM (test code = 1.18 MMOL/L 1.12-1.32 N POCCA) POC LACTIC [id number] 13:50:00 Test Item Value Reference Range Interpretation Comments POC LACTIC ACID (test code = 0.5 mmol/l 0.9-1.7 L POCLAC) POC [id number] 13:50:00 Test Item Value Reference Range Interpretation Comments POC GLUCOSE (test code = POCGLU) 101 MG/DL 70-110 N POC VENOUS BLOOD [id number] 13:50:00 Test Item Value Reference Range Interpretation Comments POC VENOUS BLOOD GAS PH (test 7.411 7.33-7.45 N code = POCPHV) POC VENOUS BLOOD GAS PCO2 (test 48.6 mmHg 43-47 H code = UVHCOV0E) POC VENOUS BLOOD GAS PO2 (test 42.5 mmHG 10-50 N code = AFVRE0B) POC TCO2 VENOUS (test code = 32.4 LLEYQZ1G) POC HCO3 VENOUS (test code = 30.9 MMOL/L 22-27 H YFMAGB9O) POC BASE EXCESS VENOUS (test code 5.6 MMOL/L -4.0-4.0 H = POCBEV) POC O2 SATURATION VENOUS (test 77.7 % 60-80 N code = HTEB7LO) [id number] 13:50:00 Test Item Value Reference Range Interpretation Comments CHLORIDE (test code = CL/VBG) MEQ/L [id number] 13:50:00 Test Item Value Reference Range Interpretation Comments SODIUM (test code = NA/ABG) 137 MEQ/L 134-147 N [id number] 13:50:00 Test Item Value Reference Range Interpretation Comments POTASSIUM (test code = K/ABG) 3.5 MEQ/L 3.4-5.0 N CREATININE [id number] 13:50:00 Test Item Value Reference Range Interpretation Comments CREATININE ABG (test code = CREAABG) mg/dL 0.8-1.3 [id number] 13:50:00 Test Item Value Reference Range Interpretation Comments HEMOGLOBIN (test code = HGB/ABG) G/DL 12.5-16.9 [id number] 13:50:00 Test Item Value Reference Range Interpretation Comments HEMATOCRIT (test code = HCT/ABG) 23 % 37.5-50.7 L POC IONIZED [id number] 13:50:00 Test Item Value Reference Range Interpretation Comments POC IONIZED CALCIUM (test code = 1.18 MMOL/L 1.12-1.32 N POCCA) POC LACTIC [id number] 13:50:00 Test Item Value Reference Range Interpretation Comments POC LACTIC ACID (test code = 0.5 mmol/l 0.9-1.7 L POCLAC) POC [id number] 13:50:00 Test Item Value Reference Range Interpretation Comments POC GLUCOSE (test code = POCGLU) 101 MG/DL 70-110 N POC VENOUS BLOOD [id number] 13:50:00 Test Item Value Reference Range Interpretation Comments POC VENOUS BLOOD GAS PH (test 7.411 7.33-7.45 N code = POCPHV) POC VENOUS BLOOD GAS PCO2 (test 48.6 mmHg 43-47 H code = JXCBYO2R) POC VENOUS BLOOD GAS PO2 (test 42.5 mmHG 10-50 N code = VJRVJ0W) POC TCO2 VENOUS (test code = 32.4 JPCJUX5I) POC HCO3 VENOUS (test code = 30.9 MMOL/L 22-27 H LZEKST9J) POC BASE EXCESS VENOUS (test code 5.6 MMOL/L -4.0-4.0 H = POCBEV) POC O2 SATURATION VENOUS (test 77.7 % 60-80 N code = AWNY9JN) [id number] 13:50:00 Test Item Value Reference Range Interpretation Comments CHLORIDE (test code = CL/VBG) MEQ/L [id number] 13:50:00 Test Item Value Reference Range Interpretation Comments SODIUM (test code = NA/ABG) 137 MEQ/L 134-147 N [id number] 13:50:00 Test Item Value Reference Range Interpretation Comments POTASSIUM (test code = K/ABG) 3.5 MEQ/L 3.4-5.0 N CREATININE [id number] 13:50:00 Test Item Value Reference Range Interpretation Comments CREATININE ABG (test code = CREAABG) mg/dL 0.8-1.3 [id number] 13:50:00 Test Item Value Reference Range Interpretation Comments HEMOGLOBIN (test code = HGB/ABG) 7.8 G/DL 12.5-16.9 L [id number] 13:50:00 Test Item Value Reference Range Interpretation Comments HEMATOCRIT (test code = HCT/ABG) 23 % 37.5-50.7 L POC IONIZED [id number] 13:50:00 Test Item Value Reference Range Interpretation Comments POC IONIZED CALCIUM (test code = 1.18 MMOL/L 1.12-1.32 N POCCA) POC LACTIC [id number] 13:50:00 Test Item Value Reference Range Interpretation Comments POC LACTIC ACID (test code = 0.5 mmol/l 0.9-1.7 L POCLAC) POC [id number] 13:50:00 Test Item Value Reference Range Interpretation Comments POC GLUCOSE (test code = POCGLU) 101 MG/DL 70-110 N POC VENOUS BLOOD [id number] 13:50:00 Test Item Value Reference Range Interpretation Comments POC VENOUS BLOOD GAS PH (test 7.411 7.33-7.45 N code = POCPHV) POC VENOUS BLOOD GAS PCO2 (test 48.6 mmHg 43-47 H code = CIXBEE9V) POC VENOUS BLOOD GAS PO2 (test 42.5 mmHG 10-50 N code = OWTNL3E) POC TCO2 VENOUS (test code = 32.4 QXXDCF9D) POC HCO3 VENOUS (test code = 30.9 MMOL/L 22-27 H JABEGH9M) POC BASE EXCESS VENOUS (test code 5.6 MMOL/L -4.0-4.0 H = POCBEV) POC O2 SATURATION VENOUS (test 77.7 % 60-80 N code = VIVT2UO) [id number] 13:50:00 Test Item Value Reference Range Interpretation Comments CHLORIDE (test code = CL/VBG) MEQ/L [id number] 13:50:00 Test Item Value Reference Range Interpretation Comments SODIUM (test code = NA/ABG) 137 MEQ/L 134-147 N [id number] 13:50:00 Test Item Value Reference Range Interpretation Comments POTASSIUM (test code = K/ABG) 3.5 MEQ/L 3.4-5.0 N CREATININE [id number] 13:50:00 Test Item Value Reference Range Interpretation Comments CREATININE ABG (test code = CREAABG) mg/dL 0.8-1.3 [id number] 13:50:00 Test Item Value Reference Range Interpretation Comments HEMOGLOBIN (test code = HGB/ABG) 7.8 G/DL 12.5-16.9 L [id number] 13:50:00 Test Item Value Reference Range Interpretation Comments HEMATOCRIT (test code = HCT/ABG) 23 % 37.5-50.7 L POC IONIZED [id number] 13:50:00 Test Item Value Reference Range Interpretation Comments POC IONIZED CALCIUM (test code = 1.18 MMOL/L 1.12-1.32 N POCCA) POC LACTIC [id number] 13:50:00 Test Item Value Reference Range Interpretation Comments POC LACTIC ACID (test code = 0.5 mmol/l 0.9-1.7 L POCLAC) POC [id number] 13:50:00 Test Item Value Reference Range Interpretation Comments POC GLUCOSE (test code = POCGLU) 101 MG/DL 70-110 N POC VENOUS BLOOD [id number] 13:50:00 Test Item Value Reference Range Interpretation Comments POC VENOUS BLOOD GAS PH (test 7.411 7.33-7.45 N code = POCPHV) POC VENOUS BLOOD GAS PCO2 (test 48.6 mmHg 43-47 H code = GXBIDB4Q) POC VENOUS BLOOD GAS PO2 (test 42.5 mmHG 10-50 N code = LDVWO4A) POC TCO2 VENOUS (test code = 32.4 TNZUFZ5V) POC HCO3 VENOUS (test code = 30.9 MMOL/L 22-27 H NGGLQG3D) POC BASE EXCESS VENOUS (test code 5.6 MMOL/L -4.0-4.0 H = POCBEV) POC O2 SATURATION VENOUS (test 77.7 % 60-80 N code = HTEC1ZW) [id number] 13:50:00 Test Item Value Reference Range Interpretation Comments CHLORIDE (test code = CL/VBG) 98 MEQ/L [id number] 13:50:00 Test Item Value Reference Range Interpretation Comments SODIUM (test code = NA/ABG) 137 MEQ/L 134-147 N [id number] 13:50:00 Test Item Value Reference Range Interpretation Comments POTASSIUM (test code = K/ABG) 3.5 MEQ/L 3.4-5.0 N CREATININE [id number] 13:50:00 Test Item Value Reference Range Interpretation Comments CREATININE ABG (test code = 2.5 mg/dL 0.8-1.3 H CREAABG) [id number] 13:50:00 Test Item Value Reference Range Interpretation Comments HEMOGLOBIN (test code = HGB/ABG) 7.8 G/DL 12.5-16.9 L [id number] 13:50:00 Test Item Value Reference Range Interpretation Comments HEMATOCRIT (test code = HCT/ABG) 23 % 37.5-50.7 L POC IONIZED [id number] 13:50:00 Test Item Value Reference Range Interpretation Comments POC IONIZED CALCIUM (test code = 1.18 MMOL/L 1.12-1.32 N POCCA) POC LACTIC [id number] 13:50:00 Test Item Value Reference Range Interpretation Comments POC LACTIC ACID (test code = 0.5 mmol/l 0.9-1.7 L POCLAC) POC [id number] 13:50:00 Test Item Value Reference Range Interpretation Comments POC GLUCOSE (test code = POCGLU) 101 MG/DL 70-110 N POC VENOUS BLOOD [id number] 13:50:00 Test Item Value Reference Range Interpretation Comments POC VENOUS BLOOD GAS PH (test 7.411 7.33-7.45 N code = POCPHV) POC VENOUS BLOOD GAS PCO2 (test 48.6 mmHg 43-47 H code = [id number]) POC VENOUS BLOOD GAS PO2 (test 42.5 mmHG 10-50 N code = YRRVX0K) POC TCO2 VENOUS (test code = 32.4 FPNPSP1H) POC HCO3 VENOUS (test code = 30.9 MMOL/L 22-27 H [id number]) POC BASE EXCESS VENOUS (test code 5.6 MMOL/L -4.0-4.0 H = POCBEV) POC O2 SATURATION VENOUS (test 77.7 % 60-80 N code = [id number]) [id number] 13:50:00 Test Item Value Reference Range Interpretation Comments CHLORIDE (test code = CL/VBG) 98 MEQ/L PROTHROMBIN [id number] 09:51:00 Test Item Value Reference Range Interpretation [...] o prevent recurre nt infarct). BASIC METABOLIC [id number] 08:49:00 Test Item Value Reference Range Interpretation [...] 8.8 mg/dL 8.0-10.5 N CA) CBC W/AUTO [id number] 07:50:00 Test Item Value Reference Range Interpretation [...] DIFF REQUIRED (test code NO = MDIFF) [id number] 06:02:00 Test Item Value Reference Range Interpretation Comments GLUBED (test code = 97 MG/DL 70-110 N Performe d by certified GLUBED) 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 [id number] 19:46:00 Test Item Value Reference Range Interpretation Comments GLUBED (test code = 181 MG/DL 70-110 H Performe d by certified GLUBED) 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 [id number] 17:02:00 Test Item Value Reference Range Interpretation Comments GLUBED (test code = 137 MG/DL 70-110 H Performe d by certified GLUBED) 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 [id number] 17:01:00 Test Item Value Reference Range Interpretation Comments GLUBED (test code = 122 MG/DL 70-110 H Performe d by certified GLUBED) 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 [id number] 06:54:00 Test Item Value Reference Range Interpretation Comments GLUBED (test code = 159 MG/DL 70-110 H Performe d by certified GLUBED) 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 BASIC METABOLIC [id number] 06:06:00 Test Item Value Reference Range Interpretation [...] be done morning of Heart CathCBC W/AUTO [id number] 05:50:00 Test Item Value Reference Range Interpretation [...] COMMENTS: To be done morning of Heart [id number] 21:38:00 Test Item Value Reference Range Interpretation Comments GLUBED (test code = 149 MG/DL 70-110 H Performe d by certified GLUBED) 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 ACUTE HEPATITIS [id number] 18:17:00 Test Item Value Reference Range Interpretation Comments AB HEPATITIS A IGM (test NON REACTIVE INDEX NON REACT. code = HAVMAB) AG HEPATITIS B SURFACE NON REACTIVE INDEX NonReactive (test code = HBSAG) AB HEPATITIS B CORE IGM NON REACTIVE INDEX NON REACT. (test code = HBCMAB) AB HEPATITIS C (test code NON REACTIVE INDEX NON REACT. 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 [facility] COVID 19 Asymptomatic IH [id number] 16:55:00 Test Item Value Reference Range Interpretation [...] COMMENTS: If not done this admissionCBC W/AUTO [id number] 16:53:00 Test Item Value Reference Range Interpretation [...] REQUIRED (test code NO = MDIFF) RBC [id number] 16:53:00 Test Item Value Reference Range Interpretation Comments POLYCHROMASIA (test code = POLC) 1+ POIKILOCYTOSIS (test code = POIK) SLIGHT ANISOCYTOSIS (test code = ANISO) 1+ MACROCYTOSIS (test code = MACR) 1+ ELLIPTOCYTES (test code = ELL) FEW BASIC METABOLIC [id number] 16:30:00 Test Item Value Reference Range Interpretation [...] 8.3 mg/dL 8.0-10.5 N CA) CBC W/AUTO [id number] 16:24:00 Test Item Value Reference Range Interpretation [...] REQUIRED (test code NO = MDIFF) RBC [id number] 16:24:00 Test Item Value Reference Range Interpretation Comments ANISOCYTOSIS (test code = ANISO) CBC W/AUTO [id number] 16:24:00 Test Item Value Reference Range Interpretation [...] REQUIRED (test code NO = MDIFF) RBC [id number] 16:24:00 Test Item Value Reference Range Interpretation Comments ANISOCYTOSIS (test code = ANISO) - CTA HEART W CN ART/[id number] 14:45:00 [facility] 1945 Sex: M Name: LOUIS PRITCHARD [facility] : 10/1944 Age/S: 75 / M [address] [place] [address] Blvd Unit #: [id number] Loc: [place] [address] Phys: Nikia Vaughn PROCESSING ASSOCIATE Acct: [id number] Dis Date: Status: ADM IN PHONE #: [phone] Exam Date: 04/24/2020 1326 FAX #: [phone]: EXAMS: CPT CODE: [id number] CTA HEART W CN ART/GRAFTS 36066 CHEST, ABDOMEN AND PELVIS CT ANGIOGRAM WITH [...] 1 Signed Report (CONTINUED) Name: LOUIS PRITCHARD [facility] : 1945 Age/S: 75 / M [address] [place] [address] Blvd Unit #: [id number] Loc: [place] [address] Phys: Nikia Benito PROCESSING ASSOCIATE Acct: [id number] Dis Date: Status: ADM IN PHONE #: [phone] Exam Date: 04/24/2020 1326 FAX #: [phone] Reason: EXAMS: CPT CODE: [id number] CTA HEART W CN ART/GRAFTS 14961 <Continued> Abdominal aorta just below the renal [...] edema with trace pelvic free fluid. at 8903 Reported and signed by: Jerry Reynolds D.O. PAGE 2 Signed Report (CONTINUED) Name: LOUIS PRITCHARD [facility] : 1945 Age/S: 75 / M [address] [place] [address] Blvd Unit #: [id number] Loc: [place] [address] Phys: Nikia Benito NP Acct: [id number] Dis Date:Status: ADM IN PHONE #: [phone] Exam Date: 04/24/2020 1326 FAX #: [phone] Reason: EXAMS: CPT CODE: [id number] CTA HEART W CN ART/GRAFTS 19951 <Continued>CC: VivianaDwayne Adler DO; Gage Turner MD; Nikia Benito NP Technologist:Hernan Jhaveri, RT(R)(CT) CTDI: DLP: Trnscb Date/Time: 04/24/2020 (1445) tNIGELR.MP37 Orig Print D/T: S: 04/24/2020 (1960) PAGE 3 Signed Report- CT ANGIO [id number] 14:45:00 [facility] : 1945 Sex: M Name: LOUIS PRITCHARD [facility] : 10/1944 Age/S: 75 / M [address] [place] [address] Blvd Unit #: [id number] Loc: [place] [address] Phys: Nikia Vaughn PROCESSING ASSOCIATE Acct: [id number] Dis Date: Status: ADM IN PHONE #: [phone] Exam Date: 04/24/2020 1326 FAX #: [phone]: SEVERE AORTIC STENOSIS. TAVR EVALUATION EXAMS: CPT CODE: [id number] CT ANGIO CHEST 23500 CHEST, ABDOMEN AND PELVIS CT ANGIOGRAM WITH [...] 1 Signed Report (CONTINUED) Name: LOUIS PRITCHARD [facility] : 1945 Age/S: 75 / M [address] [place] [address] Blvd Unit #: [id number] Loc: [place] [address] Phys: Nikia Benito PROCESSING ASSOCIATE Acct: [id number] Dis Date: Status: ADM IN PHONE #: [phone] Exam Date: 04/24/2020 1326 FAX #: [phone] Reason: SEVERE AORTIC STENOSIS. TAVR EVALUATION EXAMS: CPT CODE: [id number] CT ANGIO CHEST 97012 <Continued> Abdominal aorta just below the renal [...] 2 Signed Report (CONTINUED) Name: LOUIS PRITCHARD [facility] : 1945 Age/S: 75 / M [address] [place] [address] Blvd Unit #: [id number] Loc: [place] [address] Phys: Nikia Benito NP Acct: [id number] Dis Date:Status: ADM IN PHONE #: [phone] Exam Date: 04/24/2020 1326 FAX #: [phone] Reason: SEVERE AORTIC STENOSIS. TAVR EVALUATION EXAMS: CPT CODE: [id number] CT ANGIO CHEST 53602 <Continued>CC: Sabine Adler DO; Gage Turner MD; Nikia Zuniga NP Technologist:RT Misa(R)(CT) CTDI: DLP: Trnscb Date/Time: 04/24/2020 (144) t.SDR.MP37 Orig Print D/T: S: 04/24/2020 (1447) PAGE 3 Signed Report- CTA ABD PEL W [id number] 14:45:00 [facility] : 1945 Sex: M Name: LOUIS PRITCHARD [facility] : 10/1944 Age/S: 75 / M [address] [place] [address] Blvd Unit #: [id number] Loc: [place] [address] Phys: Nikia Vaughn PROCESSING ASSOCIATE Acct: [id number] Dis Date: Status: ADM IN PHONE #: [phone] Exam Date: 04/24/2020 1326 FAX #: [phone]: SEVERE AORTIC STENOSIS. TAVR EVALUATION EXAMS: CPT CODE: [id number] CTA ABD PEL W CONT 38935 CHEST, ABDOMEN AND PELVIS CT ANGIOGRAM WITH [...] 1 Signed Report (CONTINUED) Name: LOUIS PRITCHARD [facility] : 1945 Age/S: 75 / M [address] [place] [address] Blvd Unit #: [id number] Loc: [place] [address] Phys: Nikia Benito PROCESSING ASSOCIATE Acct: [id number] Dis Date: Status: ADM IN PHONE #: [phone] Exam Date: 04/24/2020 1326 FAX #: [phone] Reason: SEVERE AORTIC STENOSIS. TAVR EVALUATION EXAMS: CPT CODE: [id number] CTA ABD PEL W CONT 81229 <Continued> Abdominal aorta just below the renal [...] 2 Signed Report (CONTINUED) Name: LOUIS PRITCHARD [facility] : 1945 Age/S: 75 / M [address] [place] [address] Blvd Unit #: [id number] Loc: [place] [address] Phys: Nikia Benito NP Acct: [id number] Dis Date:Status: ADM IN PHONE #: [phone] Exam Date: 04/24/2020 1326 FAX #: [phone] Reason: SEVERE AORTIC STENOSIS. 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 [id number] 06:50:00 Test Item Value Reference Range Interpretation Comments GLUBED (test code = 108 MG/DL 70-110 N Performe d by certified GLUBED) 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 [id number] 20:54:00 Test Item Value Reference Range Interpretation Comments GLUBED (test code = 154 MG/DL 70-110 H Performe d by certified GLUBED) 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 [id number] 17:36:00 Test Item Value Reference Range Interpretation Comments GLUBED (test code = 122 MG/DL 70-110 H Performe d by certified GLUBED) 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 [id number] 12:14:00 Test Item Value Reference Range Interpretation Comments GLUBED (test code = 164 MG/DL 70-110 H Performe d by certified GLUBED) 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 INDICATION: Syncope COMPARISON:None. TECHNIQUE: Warner-scale, [...] occlusion High, low, or undetectable Variable SL: [id number] PAGE 1 Signed Report (CONTINUED) Name: LOUIS PRITCHARD [facility] : 1945 Age/S: 75 / M [address] [place] [address] Blvd Unit #: [id number] Loc: [place] [address] Phys: Thad Christianson NP Acct: [id number] Dis Date: Status: ADM IN PHONE #: [phone] Exam Date: 04/23/2020 1137 FAX #: [phone] Reason: syncope EXAMS: CPT CODE: [id number] DUP EXTRACRANIAL [place] [address]5868 <Continued> at 1203 Reported and signed by: Otf Ayon M.D. CC: [facility] DO; Thad Christianson PROCESSING ASSOCIATE; Gage Turner MD Technologist: Brock Guzman Trnmib Date/Time: 04/23/2020 (1203) t.SDR.SG9 Orig Print D/T: S: 04/23/2020 (1207) Probe: PAGE 2 Signed ReportTOTAL IRON BINDING [id number] 08:54:00 Test Item Value Reference Range Interpretation Comments SERUM IRON (test code = IRON) 53 mcg/dL 35-150 N TOTAL IRON BINDING CAPACITY (test 191 mcg/dL 260-445 L code = TIBC) UIBC (test code = UIBC) 138 mcg/dL IRON SATURATION (test code = 27.7 % 14-34 N FESAT) VITAMIN [id number] 08:54:00 Test Item Value Reference Range Interpretation Comments VITAMIN B12 (test code = VITB12) 761 pg/mL 193-986 N [id number] 08:54:00 Test Item Value Reference Range Interpretation Comments FERRITIN (test code = MARTÍN) 4618.8 ng/mL 23.9-336.2 H - CT HEAD/BRAIN W/O [id number] 08:45:00 [facility] : 1945 Sex: M Name: LOUIS PRITCHARD [facility] : 10/1944 Age/S: 75 / M [address] [place] [address] Unit #: [id number] Loc: [place] [address] Phys: Thad Christianson PROCESSING ASSOCIATE Acct: [id number] Dis Date: Status: ADM IN PHONE #: [phone] Exam Date: 04/23/2020 08 FAX #: [phone]: syncope EXAMS: CPT CODE: [id number] CT HEAD/BRAIN W/O CONT 68728 CT HEAD WITHOUT CONTRAST INDICATION: Syncope. COMPARISON: [...] intact. IMPRESSION: No acute intracranial findings. SL: [id number] at 0845 Reported and signed by: Otf Ayon M.D. PAGE 1 Signed Report (CONTINUED) Name: LOUIS PRITCHARD [facility] : 1945 Age/S: 75 / M [address] [place] [address] Blvd Unit #: [id number] Loc: [place] [address] Phys: Thad Christianson NP Acct: [id number] Dis Date: Status: ADM IN PHONE #: [phone] Exam Date: 04/23/2020824 FAX #: [phone] Reason: syncopeEXAMS: CPT CODE: [id number] CT HEAD/BRAIN W/O CONT 44110 <Continued> CC: [facility] DO; Thad Christianson PROCESSING ASSOCIATE; Gage Turner MD Technologist:RT Marie(R)(CT) CTDI: DLP: Trnscb Date/Time: 04/23/2020 (0845) t.MEÑOR.SG9 Orig Print D/T: S: 04/23/2020 (0849) PAGE 2 Signed ReportGLUBED 2020-04-23 07:45:00 Test Item Value Reference Range Interpretation Comments GLUBED (test code = 95 MG/DL 70-110 N Performe d by certified 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) 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 COMPREHENSIVE METABOLIC [id number] 06:30:00 Test Item Value Reference Range Interpretation [...] 0-100 N <100 (test code = LDL) [id number] -129 NEAR OPTIMAL/ABOVE [id number] [id number] 89 HIGH>QP=294 VE RY HIGH*Guidelines provided by the National Choles terol EducationProgra m Adult Treatment Panel III [id number] 06:30:00 Test Item Value Reference Range Interpretation Comments PHOSPHOROUS (test code = PHOS) 3.8 MG/DL 2.5-4.9 N [id number] 06:30:00 Test Item Value Reference Range Interpretation Comments MAGNESIUM (test code = MAG) 2.30 mg/dL 1.80-2.40 N [id number] 06:30:00 Test Item Value Reference Range Interpretation Comments TROPONIN-I 1.599 ng/mL 0.000-0.045 Critical result called to (test code = Ry ABBOTT y G.LAB.LCG at [facility]) 62504/23/20Nu rse read back result and [...] may dalia y by method. 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 - XR CHEST 2 [id number] 12:43:00 [facility] : 1945 Sex: M FAX: Thad Christianson NP [phone] [place]: St: [facility] FAX: Gage Thao I [phone] Name: LOUIS PRITCHARD [facility] [place] : 1945 Age/S: 75/M [address] [place] [address] Unit #: [id number] Loc: G.[address] [place] [address] Phys: Thad Christianson NP Acct: [id number] Dis Date: Status: ADM IN PHONE #: [phone] Exam Date: 04/22/2020 1221 FAX #: [phone]: adm EXAMS: CPT CODE: [id number] XR CHEST 2 V 99392 PROCEDURE: Chest Radiograph. Clinical Indication: Severe aortic [...] by: Reuben Durbin M.D. CC: Thad Christianson PROCESSING ASSOCIATE; Gage Turner MD Technologist: RT Misty(R) Trnscrd Date/Time/By: 04/22/2020 (2699) : By: Nataly Orig Print D/T: S: 04/22/2020 (4366) PAGE 1 Signed [id number] 12:01:00 Test Item Value Reference Range Interpretation Comments HGBA1C% (test code = HGBA1C%) 5.3 %A1C 4.8-6.0 N BASIC METABOLIC [id number] 10:50:00 Test Item Value Reference Range Interpretation [...] 9.9 mg/dL 8.0-10.5 N CA) HEPATIC FUNCTION [id number] 10:50:00 Test Item Value Reference Range Interpretation [...] 179 IUnit/L 20-125 H code = ALKP) [id number] 10:50:00 Test Item Value Reference Range Interpretation Comments MAGNESIUM (test code = MAG) 2.29 mg/dL 1.80-2.40 N TSH REFLEX TO [id number] 10:50:00 Test Item Value Reference Range Interpretation Comments TSH REFLEX TO FT4 (test code = 0.82 IU/mL 0.42-5.47 N TSHREFLEX) CBC W/O [id number] 10:30:00 Test Item Value Reference Range Interpretation [...] code 11.1 fL 7.0-9.0 H = MPV) [id number] 06:52:00 Test Item Value Reference Range Interpretation Comments GLUBED (test code = 108 MG/DL 70-110 N Performe d by certified GLUBED) 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
[2020-08-14] MEDS ORDERED: ONDANSETRON 4 MG/2 ML VIAL ONE ×2 (02:01→03:00)
[2020-08-14] MEDS ORDERED: PANTOPRAZOLE 40 MG INJ ONE (02:02)
[2020-08-14 02:13] LABS: Absolute Lymphocytes (CBC) 0.7 K/uL (0.7-4.9); Basophils % 1.2 % (0-1.3); Hematocrit 30.4 % (39.6-49.0); Lymphocytes % 9.2 % (15.3-44.8); MPV 8.4 fL (7.6-11.3); RBC Red Blood Cell Count 3.05 M/uL (4.33-5.43)
[2020-08-14 02:43] LABS: Albumin 3.3 g/dL (3.4-5.0); Bilirubin Direct 0.5 mg/dL (0-0.2); Bilirubin Total 1.1 mg/dL (0.2-1.0); Protein, Total 7.2 g/dL (6.4-8.2); Troponin (Emerg Dept Use Only) 0.09 ng/mL (0.0-0.045)
[2020-08-14 04:05] LABS: Anisocytosis 1+; Blood Morphology Comment NOTED (NOT SEEN); Burr Cells 1+; Ovalocytes 2+; Platelet Estimate DECR
[2020-08-14] MEDS ORDERED: PROMETHAZINE INJ 25 MG/ML AMP ONE (04:18)
--- NOTE | 2020-08-14 04:49 | EDPHYS ---
Physician Documentation [facility] Name: Jodi Steve Age: 75 yrs Sex: Male : 1945 Arrival Date: 08/13/2020 Time: 21:52 Bed 8 Private MD: Franklin Corado ED Physician Justo Currie HPI: 08/14 06:28 This 75 yrs old Male presents to ER via Wheelchair with complaints of Vomiting.tw4 06:28 The patient presents to the emergency department with nausea, that is moderate, tw4 vomiting. Onset: The symptoms/episode began/occurred today. Possible causes: unknown. The symptoms are aggravated by nothing. The symptoms are alleviated by nothing. The patient has not experienced similar symptoms in the past. Historical: - Allergies: 08/13 23:24 No Known Allergies; iw - Home Meds: 23:24 carvedilol 12.5 mg oral tab 1 tab daily for Hypertension [Active]; lisinopril 2.5 mg iw oral tab 1 tab once daily [Active]; levothyroxine 150 mcg tab 1 tab once daily for Hypothyroidism [Active]; sertraline 50 mg oral tab 1 tab once daily for Anxiety with Depression [Active]; ondansetron HCl 8 mg Oral tab 1 tab as needed for N/V [Active]; aspirin 81 mg Oral chew 1 tab once daily [Active]; Plavix 75 mg Oral tab 1 tab once daily for Cardiac stents [Active]; furosemide 40 mg Oral tab 1 tab once daily [Active]; metformin 500 mg Oral tr24 1 tab once daily [Active]; - PMHx: 23:26 CAD; Diabetes - NIDDM; Hypertension; Renal Disease; iw - PSHx: 23:26 Heart stents; iw - Immunization history:: Client reports receiving the 2nd dose of the Covid vaccine, Date received: June 12, 2020. - Social history:: Smoking status: unknown. ROS: 08/14 06:28 Constitutional: Negative for fever, chills, and weight loss, Eyes: Negative for injury, tw4 pain, redness, and discharge, Cardiovascular: Negative for chest pain, palpitations, and edema, Respiratory: Negative for shortness of breath, cough, wheezing, and pleuritic chest pain, Back: Negative for injury and pain, MS/Extremity: Negative for injury and deformity, Skin: Negative for injury, rash, and discoloration, Neuro: Negative for headache, weakness, numbness, tingling, and seizure. Abdomen/GI: Positive for vomiting, Negative for abdominal pain, nausea and vomiting, nausea, vomiting, and diarrhea, nausea, diarrhea, constipation. Exam: 06:28 Constitutional: This is a well developed, well nourished patient who is awake, alert, tw4 and in no acute distress. Head/Face: Normocephalic, atraumatic. Chest/axilla: Normal chest wall appearance and motion. Nontender with no deformity. No lesions are appreciated. Cardiovascular: Regular rate and rhythm with a normal S1 and S2. No gallops, murmurs, or rubs. Normal PMI, no JVD. No pulse deficits. Respiratory: Lungs have equal breath sounds bilaterally, clear to auscultation and percussion. No rales, rhonchi or wheezes noted. No increased work of breathing, no retractions or nasal flaring. 06:28 Abdomen/GI: Inspection: abdomen appears normal, Bowel sounds: diminished, Palpation: mild abdominal tenderness, in all quadrants, mass, is not appreciated, rebound tenderness, is not appreciated, voluntary guarding, is elicited in all quadrants, involuntary guarding. Vital Signs: 08/13 23:10 BP 147 / 78; Pulse 76; Resp 16; Temp 97.6; Pulse Ox 100% ; Weight 58.97 kg; Pain 0/10; iw 08/14 03:39 BP 144 / 89; Pulse 103; Resp 18; Pulse Ox 99% ; ea 04:30 BP 154 / 78; Pulse 106; Resp 18; Pulse Ox 99% ; ea 05:50 BP 113 / 82; Pulse 100; Resp 18; Pulse Ox 100% ; ea 06:20 BP 123 / 72; Pulse 96; Resp 18; Temp 98; Pulse Ox 99% ; ea MDM: 01:29 Patient medically screened. tw4 06:31 Data reviewed: vital signs, nurses notes. Data interpreted: Pulse oximetry: tw4 Interpretation: normal. Special discussion: I discussed with the patient/guardian in detail that at this point there is no indication for admission to the hospital. It is understood, however, that if the symptoms persist or worsen the patient needs to return immediately for re-evaluation. 08/14 01:29 Order name: Basic Metabolic Panel; Complete Time: 04:47 tw4 08/14 01:29 Order name: CBC with Diff; Complete Time: 04:47 tw4 08/14 01:29 Order name: Hepatic Function; Complete Time: 04:47 tw4 08/14 01:29 Order name: Lipase; Complete Time: 04:47 tw4 08/14 01:40 Order name: Type And Screen ea 08/14 01:57 Order name: Troponin (Emerg Dept Use Only); Complete Time: 03:42 EDMS 08/14 02:14 Order name: CT Abd/Pelvis - Without Contrast tw4 08/14 02:37 Order name: Manual Differential; Complete Time: 04:47 EDMS 08/14 04:55 Order name: COVID-19 : Document "Date of Symptom Onset" if Symptomatic. iw 08/14 04:56 Order name: CORONAVIRUS EDMS 08/14 06:01 Order name: SARS-COV-2 RT PCR EDMS 08/14 01:29 Order name: IV Saline Lock; Complete Time: 01:42 tw4 08/14 01:29 Order name: Labs collected and sent; Complete Time: 01:42 tw4 08/14 01:31 Order name: EKG; Complete Time: 01:31 tw4 EC:36 Rate is 103 beats/min. Rhythm is regular. QRS [place] is Normal. [place] interval is normal. tw4 QRS interval is normal. QT interval is normal. No Q waves. T waves are Inverted in leads V4, V5, V6. No ST changes noted. Clinical impression: Abnormal EKG without significant change. Interpreted by me. Reviewed by me. Administered Medications: 01:39 CANCELLED (Other Intervention Used): NS 0.9% 1000 ml IV at 1 bolus Per protocol; 1000 ea mL bolus 01:52 Drug: Zofran (Ondansetron) 4 mg Route: IVP; Site: right forearm; ea 02:06 Follow up: Response: No adverse reaction ea 01:52 Drug: ProTONIX (pantoprazole) 40 mg Route: IVP; Site: right forearm; ea 03:30 Follow up: Response: No adverse reaction ea 02:44 Drug: Zofran (Ondansetron) 4 mg Route: IVP; Site: right antecubital; ea 03:30 Follow up: Response: No adverse reaction ea 04:10 Drug: Phenergan (promethazine) 25 mg Route: IVP; Site: right forearm; ea 05:00 Follow up: Response: No adverse reaction ea 06:30 Drug: D50W 50 ml Route: IVP; Site: right antecubital; ea 07:08 Follow up: Response: No adverse reaction ea Disposition: 08/14/20 04:49 Hospitalization ordered by Fraknlin Corado for Inpatient Admission. Preliminary diagnosis are Cholelithiasis, Cyclical vomiting, intractable. - Bed requested for Telemetry/MedSurg (Inpatient). - Status is Inpatient Admission. em1 - Condition is Stable. - Problem is new. - Symptoms have improved. Signatures: Dispatcher [employer] EDMS Christen De Jesus, RN Ethan Velarde em1 Kp Clayton, BAND RIPSAW OPERATOR-C BAND RIPSAW OPERATOR-Cla1 Liliana Jenkins RN RN cg Antunez, Elena RN Justo Weiss ea, MD MD tw4 Corrections: (The following items were deleted from the chart) 01:39 01:29 NS 0.9% 1000 ml IV at 1 bolus Per protocol; 1000 mL bolus ordered. tw4 ea 01:56 01:31 TROPONIN (EMERG DEPT USE ONLY)+C.LAB.BRZ ordered. EDOR EDOR 06:03 04:49 Hospitalization Ordered by Franklin Corado MD for Inpatient Admission. Preliminary cg diagnosis is Cholelithiasis; Cyclical vomiting, intractable. Bed requested for Telemetry/MedSurg (Inpatient). Status is Inpatient Admission. Condition is Stable. Problem is new. Symptoms have improved. tw4 07:45 06:03 08/14/2020 04:49 Hospitalization Ordered by Franklin Corado MD for Inpatient em1 Admission. Preliminary diagnosis is Cholelithiasis; Cyclical vomiting, intractable. Bed requested for Telemetry/MedSurg (Inpatient). Status is Inpatient Admission. Condition is Stable. Problem is new. Symptoms have improved. cg
--- NOTE | 2020-08-14 04:49 | ER ---
Nurse's Notes [facility] Name: Jodi Steve Age: 75 yrs Sex: Male : 1945 Arrival Date: 08/13/2020 Time: 21:52 Bed 8 Private MD: Franklin Corado Diagnosis: Cholelithiasis;Cyclical vomiting, intractable Presentation: 08/13 23:10 Chief complaint: Patient states: Vomiting dark brown emesis all day today, started 2-3 iw day ago but worse today. Stomach feels bloated. No diarrhea. Had normal BM today and yesterday. Unable to keep anything down. 23:10 Method Of Arrival: Wheelchair iw 23:10 Acuity: ELYSE 3 iw 08/14 02:36 Coronavirus screen: At this time, the client does not indicate any symptoms associated ea with coronavirus-19. Ebola Screen: No symptoms or risks identified at this time. Initial Sepsis Screen: Does the patient meet any 2 criteria? No. Patient's initial sepsis screen is negative. Does the patient have a suspected source of infection? No. Patient's initial sepsis screen is negative. Risk Assessment: Do you want to hurt yourself or someone else? Patient reports no desire to harm self or others. Onset of symptoms was August 14, 2020. Historical: - Allergies: 08/13 23:24 No Known Allergies; iw - Home Meds: 23:24 carvedilol 12.5 mg oral tab 1 tab daily for Hypertension [Active]; lisinopril 2.5 mg iw oral tab 1 tab once daily [Active]; levothyroxine 150 mcg tab 1 tab once daily for Hypothyroidism [Active]; sertraline 50 mg oral tab 1 tab once daily for Anxiety with Depression [Active]; ondansetron HCl 8 mg Oral tab 1 tab as needed for N/V [Active]; aspirin 81 mg Oral chew 1 tab once daily [Active]; Plavix 75 mg Oral tab 1 tab once daily for Cardiac stents [Active]; furosemide 40 mg Oral tab 1 tab once daily [Active]; metformin 500 mg Oral tr24 1 tab once daily [Active]; - PMHx: 23:26 CAD; Diabetes - NIDDM; Hypertension; Renal Disease; iw - PSHx: 23:26 Heart stents; iw - Immunization history:: Client reports receiving the 2nd dose of the Covid vaccine, Date received: June 12, 2020. - Social history:: Smoking status: unknown. Screenin/31 01:54 Abuse screen: Denies threats or abuse. Nutritional screening: No deficits noted. ea Tuberculosis screening: No symptoms or risk factors identified. Fall Risk Assessment: 01:25 GI: Pt is actively vomiting brown tinged liquid. lp1 03:30 Reassessment: Patient and/or family updated on plan of care and expected duration. Pain ea level reassessed. Patient is alert, oriented x 3, equal unlabored respirations, skin warm/dry/pink. 05:14 Reassessment: Patient and/or family updated on plan of care and expected duration. Pain ea level reassessed. Patient is alert, oriented x 3, equal unlabored respirations, skin warm/dry/pink. 06:03 Reassessment: Patient and/or family updated on plan of care and expected duration. Pain ea level reassessed. Pt resting with eyes closed respirations even and unlabored, chest expansions even and symmetrical. No s/s of pain or discomfort noted at this time. 06:32 Reassessment: Report called to receiving nurse on fourth floor. ea Vital Signs: 08/13 23:10 BP 147 / 78; Pulse 76; Resp 16; Temp 97.6; Pulse Ox 100% ; Weight 58.97 kg; Pain 0/10; iw 08/14 03:39 BP 144 / 89; Pulse 103; Resp 18; Pulse Ox 99% ; ea 04:30 BP 154 / 78; Pulse 106; Resp 18; Pulse Ox 99% ; ea 05:50 BP 113 / 82; Pulse 100; Resp 18; Pulse Ox 100% ; ea 06:20 BP 123 / 72; Pulse 96; Resp 18; Temp 98; Pulse Ox 99% ; ea ED Course: 08/13 21:52 Patient arrived in ED. es 21:52 Franklin Corado MD is Private Physician. es 23:16 Triage completed. iw 08/14 01:27 Alesia Yao, JULIO is Primary Nurse. ea 01:28 Justo Currie MD is Attending Physician. tw4 01:40 Inserted saline lock: 20 gauge in right forearm, using aseptic technique. Blood lp1 collected. 01:55 Patient has correct armband on for positive identification. Bed in low position. Call ea light in reach. Side rails up X2. box spring frame builder on. Pulse ox on. NIBP on. 02:00 Arm band placed on right wrist. 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 02:48 CT Abd/Pelvis - Without Contrast In Process Unspecified. EDMS 04:48 Franklin Corado MD is Hospitalizing Provider. tw4 05:15 Patient admitted, IV remains in place. ea 05:15 No provider procedures requiring assistance completed. ea 07:17 Primary Nurse role handed off by Alesia Yao RN sv Administered Medications: 01:39 CANCELLED (Other Intervention Used): NS 0.9% 1000 ml IV at 1 bolus Per protocol; 1000 ea mL bolus 01:52 Drug: Zofran (Ondansetron) 4 mg Route: IVP; Site: right forearm; ea 02:06 Follow up: Response: No adverse reaction ea 01:52 Drug: ProTONIX (pantoprazole) 40 mg Route: IVP; Site: right forearm; ea 03:30 Follow up: Response: No adverse reaction ea 02:44 Drug: Zofran (Ondansetron) 4 mg Route: IVP; Site: right antecubital; ea 03:30 Follow up: Response: No adverse reaction ea 04:10 Drug: Phenergan (promethazine) 25 mg Route: IVP; Site: right forearm; ea 05:00 Follow up: Response: No adverse reaction ea 06:30 Drug: D50W 50 ml Route: IVP; Site: right antecubital; ea 07:08 Follow up: Response: No adverse reaction ea Outcome: 04:49 Decision to Hospitalize by Provider. tw4 05:15 Instructed on the need for admit, Demonstrated understanding of instructions. ea 06:33 Condition: stable ea 07:07 Admitted to Med/surg accompanied by tech, via stretcher, room 405, with chart, Report ea called to Receiving nurse on fourth floor. 07:45 Patient left the ED. em1 Signatures: Dispatcher [employer] EDNM Vicky Maier RN RN sv Salyer, Edna es Williams, Irene, RN RN iw Martinez, Eric em1 Josephine Costello RN RN 1 Alesia Yao, Trinidad Weiss RN, eaence, MD VELÁSQUEZ tw4
[2020-08-14] MEDS ORDERED: D50W 50 ML IV ONE (06:43)
[2020-08-14] MEDS ORDERED: ONDANSETRON 4 MG/2 ML VIAL IV PRN (08:04)
[2020-08-14] MEDS: D5 0.45 NS 1,000 ML IV SCH (08:27)
[2020-08-14 09:06] VITALS: BMI 26.7
--- NOTE | 2020-08-14 12:10 | P.HP ---
Certification for Inpatient Patient admitted to: Inpatient With expected LOS: >2 Midnights Patient will require the following post-hospital care: None Practitioner: I am a practitioner with admitting privileges, knowledge of patient current condition, hospital course, and medical plan of care. Services: Services provided to patient in accordance with Admission requirements found in Title 42 Section 412.3 of the Code of Federal Regulations Patient History Date of Service: 08/14/20 Primary Care Provider: Mak Reason for admission: intractable nausea and vomitting History of Present Illness: Office patient of [facility]. He has a history of ESRD, aortic valve replacement. The patient had a contusion on of his eye on Friday. he has been having some nausea and vomitting for the past day. Eventually came back to the ER. He did have a ct scan of his head on Friday which was negative. He denies any falls. He does have swelling and redness of the eye. Which seems very profound however is not occluding the iris or pupil. He is currently recieving dialysis. Allergies metformin Allergy (Mild, Verified 08/14/20 08:05) Nausea/Vomiting Home Medications: Aspirin [Aspirin EC 81 MG] 81 mg PO DAILY 07/03/20 Carvedilol [Coreg] 0.5 tab PO BID 07/03/20 Clopidogrel Bisulfate [Clopidogrel] 75 mg PO DAILY 07/03/20 Furosemide 40 mg PO DAILY 07/03/20 Gabapentin 300 mg PO DAILY 07/03/20 Levothyroxine Sodium [Levothyroxine] 150 mcg PO [id number] 07/03/20 Lisinopril [Zestril] 2.5 mg PO DAILY 07/03/20 Atorvastatin Calcium [Lipitor] 20 mg PO BEDTIME 08/14/20 Diclofenac Sodium 75 mg PO TID 08/14/20 Metformin HCl [Glucophage] 500 mg PO BEDTIME 08/14/20 Sertraline [Zoloft] 50 mg PO DAILY 08/14/20 - Past Medical/Surgical History Has patient received pneumonia vaccine in the past: Yes Diabetic: Yes -: Hypertension -: Renal disease -: NIDDM -: HD MWF -: Bilateral BKA -: CABG 2013 -: Vascular surgery 2018 -: TAVR Apr 2020 -: Bilateral BKA - Family History Sister -: Diabetes Mother -: Diabetes - Social History Smoking Status: Former smoker Alcohol use: No CD- Drugs: No Caffeine use: Yes Place of Residence: Home Review of Systems Eyes: Conjunctivae Inflammation, Redness Gastrointestinal: Nausea, Vomiting Physical Examination - Vital Signs Temperature: 96.5 F Blood Pressure: 140/77 Pulse: 97 Respirations: 18 Pulse Ox (%): 100 - Physical Exam General: Alert, In no apparent distress HEENT: Atraumatic, PERRLA, Mucous membr. moist/pink, Other (swelling and reddness of the right eye. The patient may have a trauma), EOMI, Sclerae nonicteric Neck: Supple, 2+ carotid pulse no bruit, No LAD, Without JVD or thyroid abnor mality Respiratory: Clear to auscultation bilaterally, Normal air movement Cardiovascular: Regular rate/rhythm, Normal S1 S2 Gastrointestinal: Normal bowel sounds, No tenderness Musculoskeletal: No tenderness Integumentary: No rashes Neurological: Normal gait, Normal speech, Normal strength at 5/5 x4 extr, Normal tone, Normal affect Lymphatics: No axilla or inguinal lymphadenopathy - Studies Laboratory Data (last 24 hrs) 08/14/20 01:30: WBC 7.80 D, Hgb 9.7 L, Hct 30.4 L, Plt Count 80 L 08/14/20 01:30: Sodium 134 L, Potassium 4.0, BUN 38 H, Creatinine 4.88 H D, Glucose 56 L, Total Bilirubin 1.1 H, AST 19, ALT 25, Alkaline Phosphatase 113, Lipase 155 Assessment and Plan - Problems (Diagnosis) (1) Nausea & vomiting Current Visit: No Status: Acute Plan: Patient is stable now in dialysis. This may be due to a subdural hematoma. he had a negative CT scan a few days ago in the ER. However there is a delay and some elderly patient may have them 48-72 hours later. Will repeat a ct and put him on neurochecks. He is currently neurologically intact. however given his left eye he may have suffered a fall or a trauma. He denies this. However many elderly patients fall at night and don't remember the next day. Best to double check We can also check stool studies. Continue hydration and zofran. Qualifiers: Vomiting type: unspecified Vomiting Intractability: non-intractable Qualified Code(s): R11.2 - Nausea with vomiting, unspecified (2) Subconjunctival hemorrhage of left eye Current Visit: Yes Status: Acute Plan: as above will repeat the Head CT. Will need to protect the eye with antibiotic ointment and coverage. He most likely will not get an in patient opthalmalogy consult. Will see if we can get him a quick outpatient consult. (3) Chronic CHF (congestive heart failure) Current Visit: No Status: Chronic Plan: stable. He is in dialysis today. Will continue the carvedilol. We can try lasix if there is any signs of fluid overload. Qualifiers: Heart failure type: systolic (4) ESRD (end stage renal disease) on dialysis Current Visit: No Status: Chronic Plan: With Dr. Kimball's group. He normally gets his dialysis on MWF. He is getting an extra round today. Will get a 1lt removed (5) Hypothyroid Current Visit: No Status: Chronic Plan: recheck thyroid level. Will continue his routine levothyroxine Qualifiers: Hypothyroidism type: acquired Qualified Code(s): E03.9 - Hypothyroidism, unspecified Discharge Plan: Home Plan to discharge in: 72 Hours - Advance Directives Does patient have a Living Will: No Does patient have a Durable POA for Healthcare: No - Code Status/Comfort Care Code Status Assessed: No Physician Review: Patient Assessed, Agree with Above Assessment and Plan Critical Care: No Time Spent Managing Pts Care (In Minutes): 60
--- NOTE | 2020-08-14 14:04 | RAD REPORT ---
EXAM DESCRIPTION: CT - Abdomen Pelvis Wo Contrast - 08/14/2020 5:01 am COMPARISON: None. CLINICAL HISTORY: [facility] MAIN NAUSEA / VOMITING TECHNIQUE: CT of the abdomen and pelvis was acquired without IV contrast material. Coronal and sagit annika reconstructions were obtained. Automated exposure control was utilized on this examination as a dose lowering technique. FINDINGS: Lung bases: Cardiomegaly with valvular calcifications. Bibasilar atelectasis is present. L arge right and moderate left pleural effusion. *Evaluation of solid organs is limited due to lack of IV contrast. Liver: Normal. Gallbladder and biliary: Dependent gallstones are present. Gallbladder wall thickening measures up to one 4 mm. Unremarkable biliary tree. Pancreas: Normal. Spleen: Normal. Adrenal glands: Normal adrenal glands. Kidneys: A 6.2 cm superior left renal cyst is noted. The kidneys are decreased in size. Stomach and Small Bowel: The stomach and small bowel are normal. Urinary bladder: Bladder wall thickening is likely due to decompression. Prostate/Male Urogenital: Normal. Colon and Appendix: Mild colonic diverticulosis. No evidence of appendicitis. Retroperitoneum and lymph nodes: Normal. Vascular: Severe multivessel calcified atherosclerosis. Peritoneal cavity: Moderate ascites. No intraperitoneal free air. Musculoskeletal and soft tissues: Moderate anasarca. There are degenerative changes of the right grea ter than left hip with nonaggressive appearing geodes. There is 1.0 cm anterolisthesis L5 on S1 wit h chronic bilateral L5 pars fractures. There is severe lower lumbar spinal canal stenosis. No shukri noreen fracture. IMPRESSION: 1. Cholelithiasis with gallbladder wall thickening. These findings are nonspecific but m ay be seen with acute cholecystitis. 2. Moderate ascites and anasarca. 3. Cardiomegaly with large right and moderate left pleural effusions. 4. Bilateral renal atrophy. 5. Mild colonic diverticulosis. 6. Severe atherosclerosis. Electronically signed by: Parker Rodriguez MD 08/14/2020 3:03 AM CDT Due to temporary technical issues with the PACS/Fluency reporting system, reports are being signed by the in house radiologists without review as a courtesy to insure prompt reporting. The interpreting radiologist is fully responsible for the content of the report.
--- NOTE | 2020-08-14 16:59 | RAD REPORT ---
EXAM DESCRIPTION: CT - Head Brain Wo Cont - 08/14/2020 4:50 pm CLINICAL HISTORY: possible subdural hematoma, headache COMPARISON: Head Brain Wo Cont dated 08/12/2020 TECHNIQUE: Axial 5 mm thick images of the head were obtained without IV contrast. All CT scans are performed using dose optimization technique as appropriate and may include automated exposure control or mA/KV adjustment according to patient size. FINDINGS: No subdural hematoma or other intracranial hemorrhagic process. No mass, edema or shift of midline structures. No acute infarction changes seen. No cortical edema or sulcal effacement. Atroph y and chronic ischemic changes match the prior study. Ventricles are in proportion to any volume loss . Mastoid air cells and visualized portions of the paranasal sinuses are clear. No acute bony findings. Dense arterial tree calcifications are present. IMPRESSION: No subdural hematoma has developed since the August 12 examination. No acute intracranial f inding seen.
--- NOTE | 2020-08-14 19:23 | CON ---
Date of Consultation: 08/14/2020 Chief Complaint: End-stage renal disease, on dialysis. History Of Present Illness: The patient has multiple medical problems including history of end-stage renal disease, has been dialyzed 3 times per week on Friday, Friday, Friday. He developed recent ly contusion of his left eye. He had some nausea, vomiting in the recent past who is complaining of abdominal pain, generalized weakness. He came to the emergency room because of generalized weakness. He had CT scan of the head done on Friday when he came to the emergency room and it was negative for any new acute changes. He denies chest pain, palpitation. He developed some swelling and rednes s of the left eye. Review of Systems: Constitutional: Denies fever, chills. Eyes: Denies vision changes. He has swelling and redness and hematoma around the left eye. GI: Nausea, vomiting resolved. Prior to this admission, he has intractable nausea, vomiting. : Denies dysuria, hematuria. Denies kidney stone and renal colic. Musculoskeletal: Denies muscle aches or joint swelling. All other systems reviewed and all are negative. Past Medical History: Hypertension, coronary artery disease, [id number] diabetes mellitus , peripheral vascular disease, CABG 2014, vascular surgery 2018, TAVR April 2020, bilateral BKA. Family History: Sister has diabetes. Mother had diabetes. Social History: Denies tobacco, alcohol, illicit drugs. Physical Examination: General: The patient is awake, alert, follows commands. Eyes: Swelling and redness of the right eye and hematoma around the right eye NECK: Supple. No JVD. No bruits. Lungs: Clear to auscultation bilaterally. Heart: S1, S2. Abdomen: Soft. Benign. Extremities: Bilateral amputation. Neurological: Moving extremities. Cranial nerves intact. Psychiatric: The patient is awake, alert, follows commands. Laboratory Data: Hemoglobin 9.7, WBC 7.8, platelet count 80,000. Sodium 134, potassium 4.0, BUN 38, creatinine 4.88, glucose 56. Lipase 155. Impression And Plan: 1.End-stage renal disease. The patient will have dialysis today. 2.Congestive heart failure, diastolic dysfunction. Continue carvedilol. Monitor blood pressure. T he patient has some fluid overload and is receiving dialysis with ultrafiltration. Monitor blood pre ssure during dialysis. Adjust treatment with ultrafiltration to prevent intradialysis hypotension. 3.Diabetes mellitus. Continue to adjust treatment. The patient is not a candidate for hypoglycemic agent. Continue insulin. 4.Anemia of chronic kidney disease. Monitor hemoglobin level and adjust CHRIS as needed. 5.Thrombocytopenia. Workup per primary team. PING/MODGuillermo Voice ID: [id number] Report ID: [id number]
[2020-08-14 20:26] LABS: Potassium 3.6 mmol/L (3.5-5.1)
[2020-08-14] MEDS: carvediloL 3.125 MG TAB PO SCH (21:08)
[2020-08-14] MEDS: ATORVASTATIN 20 MG TAB PO SCH (21:08)
[2020-08-15] MEDS: D5 0.45 NS 1,000 ML IV SCH (04:22)
[2020-08-15] MEDS: LEVOTHYROXINE SOD 0.075 MG TAB PO SCH (06:00)
[2020-08-15] MEDS: SERTRALINE HCL 50 MG TAB PO SCH (07:57)
[2020-08-15] MEDS: GABAPENTIN 300 MG CAP PO SCH (07:58)
[2020-08-15] MEDS: carvediloL 3.125 MG TAB PO SCH ×2 (07:58→20:48)
--- NOTE | 2020-08-15 09:25 | P.PN ---
Subjective Date of Service: 08/15/20 Primary Care Provider: Mak Chief Complaint: intractable nausea and vomitting Subjective: Improving Review of Systems 10-point ROS is otherwise unremarkable Physical Examination - Vital Signs Temperature: 97.9 F Blood Pressure: 133/67 Pulse: 97 Respirations: 18 Pulse Ox (%): 100 - Physical Exam General: Alert, In no apparent distress HEENT: Atraumatic, PERRLA, EOMI Neck: Supple, JVD not distended Respiratory: Clear to auscultation bilaterally, Normal air movement Cardiovascular: Regular rate/rhythm, Normal S1 S2 Gastrointestinal: Normal bowel sounds, No tenderness Musculoskeletal: No tenderness Integumentary: No rashes Neurological: Normal speech, Normal tone, Normal affect Lymphatics: No axilla or inguinal lymphadenopathy Assessment & Plan - Problems (Diagnosis) (1) Nausea & vomiting Current Visit: No Status: Acute Plan: Patient is stable now in dialysis. This may be due to a subdural hematoma. he had a negative CT scan a few days ago in the ER. However there is a delay and some elderly patient may have them 48-72 hours later. Will repeat a ct and put him on neurochecks. He is currently neurologically intact. however given his left eye he may have suffered a fall or a trauma. He denies this. However many elderly patients fall at night and don't remember the next day. Best to double check We can also check stool studies. Continue hydration and zofran. 08/15/20 Patient is improving. will start him on clear liquid diet Advance as tolerated Qualifiers: Vomiting type: unspecified Vomiting Intractability: non-intractable Qualified Code(s): R11.2 - Nausea with vomiting, unspecified (2) Subconjunctival hemorrhage of left eye Current Visit: Yes Status: Acute Plan: as above will repeat the Head CT. Will need to protect the eye with antibiotic ointment and coverage. He most likely will not get an in patient opthalmalogy consult. Will see if we can get him a quick outpatient consult. 08/15/[address] Ordoñez. As he has no visual loss or pain. We can have him follow up with her as an outpatient The patient will get a better examination in the office. (3) Chronic CHF (congestive heart failure) Current Visit: No Status: Chronic Plan: stable. He is in dialysis today. Will continue the carvedilol. We can try lasix if there is any signs of fluid overload. Qualifiers: Heart failure type: systolic (4) ESRD (end stage renal disease) on dialysis Current Visit: No Status: Chronic Plan: With Dr. Kimball's group. He normally gets his dialysis on MWF. He is getting an extra round today. Will get a 1lt removed (5) Hypothyroid Current Visit: No Status: Chronic Plan: recheck thyroid level. Will continue his routine levothyroxine Qualifiers: Hypothyroidism type: acquired Qualified Code(s): E03.9 - Hypothyroidism, unspecified (6) At risk for fall due to comorbid condition Current Visit: Yes Status: Chronic Plan: spoken with son in law. Patient need assistance for transfers. Family wondering about his ability to live at home. He lives with an elderly . son in law state he feels the patient is dying. As he keeps getting weaker. Will order pt and social insurance adviser. Discharge Plan: Home Plan to discharge in: 24 Hours - Code Status/Comfort Care Code Status Assessed: No Physician Review: Patient Assessed, Agree with Above Assessment and Plan Critical Care: No Time Spent Managing Pts Care (In Minutes): 70
--- NOTE | 2020-08-15 10:50 | PN ---
Date of Progress Note: 08/15/2020 Subjective: The patient had fall, had head injury, bruises around the left eye. The patient status post dialysis yesterday, tolerated the dialysis, managed to remove 2100. Blood pressure has been stable. Physical Examination: Vital Signs: Blood pressure 133/67, pulse of 97, afebrile. Chest: Clear to auscultation. Heart: S1, S2. Systolic murmur. Abdomen: Soft, nontender. Extremities: Bilateral above-knee amputation. Neuro: Alert. No focality. Head Exam: Bruises around the left orbital. Laboratory Data: WBC 7.8, H and H 9.7/30.2. Sodium 137, potassium 3.6, bicarb 24, BUN 21, creatinine 2.7, calcium 8.7. CT abdomen and pelvis showing ascites with anasarca, cholelithiasis, questionable of cholecystitis, chronic diverticulosis with atherosclerosis change, atrophic kidney. Current Medications: The patient on include; 1. Atorvastatin. 2. Carvedilol. 3. Gabapentin. 4. Zoloft. 5. Levothyroxine. Assessment And Plan: 1. End-stage renal disease. We will continue the patient on dialysis Friday, Friday, Friday. We will arrange for dialysis tomorrow. 2. Hypertension, controlled, optimal. Continue current medication. 3. Ascites on the CT, possible component of cirrhosis. I am going to arrange for ammonia given the fall for the patient and we will do INR to evaluate if the patient had any cirrhosis, follow up hepatitis panel. 4. Fall, as above. We will follow up with Ophthalmology and Primary. 5. Diabetes, stable as by Primary. 6. Anemia of chronic kidney disease. Resume Retacrit. time spent exam the patient face to face, placing order , discussing the case with the patient and family, reviewing the data , discussing the case with other steam fitter including hopitalist and other senior management consultant 45 min. BERNABE Voice ID: [id number] Report ID: [id number] MTDD
[2020-08-15] MEDS: levETIRAcetam 500 MG TAB PO SCH (15:50)
[2020-08-15] MEDS: ATORVASTATIN 20 MG TAB PO SCH (20:48)
--- NOTE | 2020-08-15 21:37 | CON ---
Reason For Consultation: Consultation called because of possible subdural hematoma. History Of Present Illness: Mr. Steve is a 75-year-old right-handed patient with diabe gladis mellitus [id number], hypertension, chronic kidney disease on dialysis, coronary artery disease, who apparently passed out and hit the face around the left eye and has had at least 4 appar ent episodes of passing out in about 6 months. He was seen at [facility], had an orbital CT scan on the . The study showed no acute ischemic or hemorrhagic changes. No fractures were hiral ntified. The patient did have some dizziness, mild headache. Repeat head CT scan done on the , after the first on , showed no development of subdural hematoma, no acute findings were identifie d, no midline shift. Clinically, the patient does not worsen. His laboratory studies showed slightl y low hemoglobin and hematocrit at 9.7 and 30.4, normal white blood cell count, platelets are low at 80. His INR 1.31. Chemistries showed chronic elevation of his creatinine at 2.77, glucose ranged fr om 108 to 153, calcium normal at 8.7. The rest of his electrolytes were normal. Liver function stud ies essentially unremarkable except slightly elevated total bilirubin of 1.1 and direct bilirubin of 0.5. His COVID-19 test was negative. Past Medical History: As indicated. Past Surgical History: Cardiac stent, access for dialysis, coronary artery bypass grafting, and belo w-the-knee amputation. Social History: The patient drinks alcohol regularly. Denies IV drug use. Family History: Noncontributory. Physical Examination: Vital Signs: Blood pressure 121/66, pulse 85, respiratory rate 16, temperature 98, oxygen saturation 100% on room air. General: Mr. Steve is resting comfortably, in no significant distress. Bruising noted over the face. HEENT: Otherwise, he is atraumatic. Sclerae anicteric. The left eye does look very bloodshot and s ome swelling over the left lower and upper face. EXTREMITIES: Otherwise, atraumatic in the upper extremities. No obvious trauma. Does have a bilate ral BKA present. His proximal lower extremities, no abnormalities identified in the stumps. Coordin ation is intact in the upper extremities. Assessment: Mr. Steve is a 75-year-old patient with multiple syncopal episodes in the presence of alcohol use, possibility of alcohol withdrawal is considered and alcohol withdrawal seizures. He is currently on Keppra 250 mg twice daily and should be on thiamine 100 mg daily. He is on statin me dications for dyslipidemia and beta ch[place] along with Synthroid. Plan: 1.We will follow up on pending EEG. 2.The patient should stop drinking alcohol. 3.He may require ambulatory video EEG monitoring for event characterization, specially if these epis odes continue. 4.The patient will be followed while in the hospital. FINA/IMER Voice ID: [id number] Report ID: [id number]
[2020-08-16 05:55] LABS: Protime INR 1.29
[2020-08-16] MEDS: LEVOTHYROXINE SOD 0.075 MG TAB PO SCH (06:00)
[2020-08-16 06:02] LABS: Phosphorus 4.1 mg/dL (2.5-4.9)
[2020-08-16] MEDS: SERTRALINE HCL 50 MG TAB PO SCH (07:57)
[2020-08-16] MEDS: carvediloL 3.125 MG TAB PO SCH ×2 (07:58→21:27)
[2020-08-16] MEDS: GABAPENTIN 300 MG CAP PO SCH (07:58)
[2020-08-16] MEDS: levETIRAcetam 500 MG TAB PO SCH (07:58)
--- NOTE | 2020-08-16 09:15 | P.PN ---
Subjective Date of Service: 08/16/20 Primary Care Provider: Mak Chief Complaint: intractable nausea and vomitting Subjective: Improving (patient is eating and had a bowel movement) Review of Systems General: Weakness Physical Examination - Vital Signs Temperature: 97.2 F Blood Pressure: 129/74 Pulse: 80 Respirations: 18 Pulse Ox (%): 100 - Physical Exam General: Alert, In no apparent distress HEENT: Atraumatic, PERRLA, EOMI Neck: Supple, JVD not distended Respiratory: Clear to auscultation bilaterally, Normal air movement Cardiovascular: Regular rate/rhythm, Normal S1 S2 Gastrointestinal: Normal bowel sounds, No tenderness Musculoskeletal: No tenderness Integumentary: No rashes Neurological: Normal speech, Normal tone, Normal affect Lymphatics: No axilla or inguinal lymphadenopathy Assessment & Plan - Problems (Diagnosis) (1) At risk for fall due to comorbid condition Current Visit: Yes Status: Chronic Plan: spoken with son in law. Patient need assistance for transfers. Family wondering about his ability to live at home. He lives with an elderly . son in law state he feels the patient is dying. As he keeps getting weaker. Will order pt and social media marketing manager. 08/16 Daughter called last evening to discuss her concerns. He lives with his elderly . Is having difficulty transferring and requires assistance to transfer and toilet. Will have PT and social media marketing manager see the patient today. The son in law yesterday is wondering if the patient is going to soon. He feels his may be coming to the same conclusion. The family seems to be considering end of life treatment such as hospice. Have discussed with the patient going to inpt rehab. Have not discussed hospice yet. However the patient may be considering this himself (2) Nausea & vomiting Current Visit: No Status: Resolved Plan: Patient is stable now in dialysis. This may be due to a subdural hematoma. he had a negative CT scan a few days ago in the ER. However there is a delay and some elderly patient may have them 48-72 hours later. Will repeat a ct and put him on neurochecks. He is currently neurologically intact. however given his left eye he may have suffered a fall or a trauma. He denies this. However many elderly patients fall at night and don't remember the next day. Best to double check We can also check stool studies. Continue hydration and zofran. 08/15/20 Patient is improving. will start him on clear liquid diet Advance as tolerated Qualifiers: Vomiting type: unspecified Vomiting Intractability: non-intractable Qualified Code(s): R11.2 - Nausea with vomiting, unspecified (3) Subconjunctival hemorrhage of left eye Current Visit: Yes Status: Acute Plan: as above will repeat the Head CT. Will need to protect the eye with antibiotic ointment and coverage. He most likely will not get an in patient opthalmalogy consult. Will see if we can get him a quick outpatient consult. 08/16 Dr. Ordoñez out of network. Will try refering to Dr. Antonio as an outpatient. His eye continues to improve. (4) Chronic CHF (congestive heart failure) Current Visit: No Status: Chronic Plan: stable. He is in dialysis today. Will continue the carvedilol. We can try lasix if there is any signs of fluid overload. Qualifiers: Heart failure type: systolic (5) ESRD (end stage renal disease) on dialysis Current Visit: No Status: Chronic Plan: With Dr. Kimball's group. He normally gets his dialysis on MWF. He is getting an extra round today. Will get a 1lt removed (6) Hypothyroid Current Visit: No Status: Chronic Plan: recheck thyroid level. Will continue his routine levothyroxine Qualifiers: Hypothyroidism type: acquired Qualified Code(s): E03.9 - Hypothyroidism, unspecified Discharge Plan: Home Plan to discharge in: 24 Hours - Code Status/Comfort Care Code Status Assessed: No Physician Review: Patient Assessed, Agree with Above Assessment and Plan Critical Care: No Time Spent Managing Pts Care (In Minutes): 30
--- NOTE | 2020-08-16 11:05 | PN ---
Date of Progress Note: 08/16/2020 Subjective: The patient was admitted after fall. No nausea, no vomiting. Currently asymptomatic. The patient is scheduled for dialysis today. Physical Examination: Vital Signs: Blood pressure 129/74, pulse of 80, afebrile. Chest: Clear to auscultation. Heart: S1, S2. Regular. Systolic murmur. Abdomen: Soft. No organomegaly. Extremities: Bilateral below-knee amputation. Neurologic: Alert. No focality. Head and Neck: Red eye on the left side with bruises around the orbitals. Laboratory Data: WBC 7.8, H and H 9.7/30.4, platelets of 80. Sodium 135, potassium 4, bicarb 26, BUN 26, creatinine 4.1, albumin of 3. INR is 1.2. Current Medications: The patient on include; 1. Atorvastatin. 2. Carvedilol. 3. Gabapentin. 4. Zoloft. 5. Keppra. 6. Levothyroxine. Assessment And Plan: 1. End-stage renal disease, normal volume. I am going to schedule the patient for dialysis today. We will monitor the patient. 2. Hypertension, controlled, optimal. Continue current medication. 3. Ascites, possibly the patient developing cirrhosis. INR has been prolonged with thrombocytopenia. Hepatitis panel still pending. I am going to go ahead and check for the ammonia level and we will follow up with primary, follow up with Neurology. 4. Fall, possible secondary to neuropathy, questionable of seizure. Follow up with Neurology. time spent exam the patient face to face, placing order , discussing the case with the patient and family, reviewing the data , discussing the case with other steamblaster including hopitalist and other customs consultant 45 min. BERNABE Voice ID: [id number] Report ID: [id number] AMRIK
--- NOTE | 2020-08-16 12:04 | EKG ---
Test Date: 2020-08-14 Test Time: 01:35:35 Special Education Associate: BEATRIZ MEASUREMENT RESULTS: Intervals: Rate: 103 NV: 134 QRSD: 112 QT: 376 QTc: 492 [place]: P: 21 NV: 134 QRS: 69 T: 258 INTERPRETIVE STATEMENTS: Sinus tachycardia Possible Inferior infarct, age undetermined ST & T wave abnormality, consider lateral ischemia Abnormal ECG Compared to ECG 07/23/2020 16:01:35 ST (T wave) deviation now present T-wave abnormality no longer present Myocardial infarct finding still present Possible ischemia still present Electronically Signed On 08-16-20 11:54:52 CDT by Barry Mccann
[2020-08-16] MEDS ORDERED: levETIRAcetam 500 MG TAB PO SCH (13:48)
[2020-08-16] MEDS: EPOETIN 4,000 UNIT/ML VIAL IV SCH (17:00)
[2020-08-16] MEDS: ATORVASTATIN 20 MG TAB PO SCH (21:27)
[2020-08-17 04:15] LABS: HBsAG Nonreactive (Nonreactive)
[2020-08-17] MEDS: LEVOTHYROXINE SOD 0.075 MG TAB PO SCH (05:31)
[2020-08-17 06:08] LABS: Phosphorus 2.8 mg/dL (2.5-4.9); Potassium 3.7 mmol/L (3.5-5.1)
[2020-08-17] MEDS: carvediloL 3.125 MG TAB PO SCH ×2 (08:37→21:24)
[2020-08-17] MEDS: levETIRAcetam 500 MG TAB PO SCH (08:37)
[2020-08-17] MEDS: GABAPENTIN 300 MG CAP PO SCH (08:38)
[2020-08-17] MEDS: SERTRALINE HCL 50 MG TAB PO SCH (08:38)
--- NOTE | 2020-08-17 08:57 | EEG ---
CHART: [id number] TEST ID#: [id number] DATE OF STUDY: 08/16/2020 THE EEG WAS RECORDED PORTABLE IN THE PATIENT'S ROOM ON A 17 CHANNEL MACHINE. ELECTRODES WERE APPLIED IN THE USUAL MANNER USING THE INTERNATIONAL 10-20 SYSTEM. THE WAKING BACKGROUND RHYTHM IN THIS RECORD CONSISTS OF FAIRLY WELL DEVELOPED AND FAIRLY WELL ORGANIZED WAVES OF 9 HZ., MAXIMAL IN THE POSTERIOR HEAD REGIONS WHICH ATTENUATE NORMALLY WITH EYE OPENING. LOW-VOLTAGE 18-22 HZ ACTIVITY IS EXPRESSED IN THE FRONTAL REGIONS. THERE ARE NO FOCAL OR LATERALIZING FEATURES. NO EPILEPTIFORM ACTIVITY APPEARS. SLEEP OCCURRED NATURALLY. IN ADDITION NORMAL SLEEP PATTERNS ARE PRESENT. HYPERVENTILATION WAS NOT PERFORMED. PHOTIC STIMULATION PRODUCED POOR DRIVING BILATERALLY. IMPRESSION: NORMAL EEG FOR THE AGE OF THE PATIENT IN [place], DROWSINESS AND SLEEP.
--- NOTE | 2020-08-17 11:23 | P.PN ---
Subjective Date of Service: 08/17/20 Primary Care Provider: Mak Chief Complaint: intractable nausea and vomitting Subjective: No new changes patient having breakfast. He was too sleepy to do much during PT yesterday. Had a lt removed during dialysis Review of Systems 10-point ROS is otherwise unremarkable General: Weakness, Malaise Physical Examination - Vital Signs Temperature: 96.9 F Blood Pressure: 122/74 Pulse: 85 Respirations: 14 Pulse Ox (%): 100 - Physical Exam General: Alert, In no apparent distress HEENT: Atraumatic, PERRLA, EOMI Neck: Supple, JVD not distended Respiratory: Clear to auscultation bilaterally, Normal air movement Cardiovascular: Regular rate/rhythm, Normal S1 S2 Gastrointestinal: Normal bowel sounds, No tenderness Musculoskeletal: No tenderness Integumentary: No rashes Neurological: Normal speech, Normal tone, Normal affect Lymphatics: No axilla or inguinal lymphadenopathy - Studies Medications List Reviewed: Yes Assessment And Plan - Current Problems (Diagnosis) (1) End of life care Current Visit: Yes Status: Chronic Plan: Patient has been getting weaker. Started on zoloft by Dr. Graff. He is getting less tolerant of dialysis. Where he normally slept an hour after dialysis. He is worsening now and sleeps the rest of the day. Have discussed with Mr Srinivasan yesterday and the daughter today. She is willing to discus with hospice her options. Of course the ultimate decision is with the patient. Howeve he may already be on the path to acceptance. (2) At risk for fall due to comorbid condition Current Visit: Yes Status: Chronic Plan: spoken with son in law. Patient need assistance for transfers. Family wondering about his ability to live at home. He lives with an elderly . son in law state he feels the patient is dying. As he keeps getting weaker. Will order pt and social worker psychiatric. 08/16 Daughter called last evening to discuss her concerns. He lives with his elderly . Is having difficulty transferring and requires assistance to transfer and toilet. Will have PT and social worker psychiatric see the patient today. The son in law yesterday is wondering if the patient is going to soon. He feels his may be coming to the same conclusion. The family seems to be considering end of life treatment such as hospice. Have discussed with the patient going to inpt rehab. Have not discussed hospice yet. However the patient may be considering this himself (3) Subconjunctival hemorrhage of left eye Current Visit: Yes Status: Acute Plan: as above will repeat the Head CT. Will need to protect the eye with antibiotic ointment and coverage. He most likely will not get an in patient opthalmalogy consult. Will see if we can get him a quick outpatient consult. 08/16 Dr. Ordoñez out of network. Will try refering to Dr. Antonio as an outpatient. His eye continues to improve. (4) Chronic CHF (congestive heart failure) Current Visit: No Status: Chronic Plan: stable. He is in dialysis today. Will continue the carvedilol. We can try lasix if there is any signs of fluid overload. Qualifiers: Heart failure type: systolic (5) ESRD (end stage renal disease) on dialysis Current Visit: No Status: Chronic Plan: With Dr. Kimball's group. He normally gets his dialysis on MWF. He is getting an extra round today. Will get a 1lt removed (6) Hypothyroid Current Visit: No Status: Chronic Plan: recheck thyroid level. Will continue his routine levothyroxine Qualifiers: Hypothyroidism type: acquired Qualified Code(s): E03.9 - Hypothyroidism, unspecified (7) Nausea & vomiting Current Visit: No Status: Resolved Plan: Patient is stable now in dialysis. This may be due to a subdural hematoma. he had a negative CT scan a few days ago in the ER. However there is a delay and some elderly patient may have them 48-72 hours later. Will repeat a ct and put him on neurochecks. He is currently neurologically intact. however given his left eye he may have suffered a fall or a trauma. He denies this. However many elderly patients fall at night and don't remember the next day. Best to double check We can also check stool studies. Continue hydration and zofran. 08/15/20 Patient is improving. will start him on clear liquid diet Advance as tolerated Qualifiers: Vomiting type: unspecified Vomiting Intractability: non-intractable Qualified Code(s): R11.2 - Nausea with vomiting, unspecified (8) Severe protein-energy malnutrition Current Visit: Yes Status: Acute Plan: Patient is very weak. Sleepy after dialysis. Increased fall risk Discharge Plan: Home Plan to discharge in: 24 Hours - Code Status/Comfort Care Code Status Assessed: No Physician Review: Patient Assessed, Agree with Above Assessment and Plan Critical Care: No Time Spent Managing PTS Care (In Minutes): 70
--- NOTE | 2020-08-17 11:42 | PN ---
Date of Progress Note: 08/17/2020 Subjective: The patient was admitted with a fall, head injury. The patient had bilateral below-knee amputations. Physical Examination: Vital Signs: Blood pressure 122/74, pulse of 85. Chest: Clear to auscultation. Heart: S1, S2. Regular. Systolic murmur. Abdomen: Soft, nontender. Extremities: Bilateral below-knee amputations. AV fistula in the left upper arm with thrill and bruit. Neuro: Alert. No focality. Head and Neck: Bruises around the left orbital with red eye. Laboratory Data: H and H 9.7/30.4. Sodium 137, potassium 3.7, bicarb 28, BUN 18, creatinine 2.9, GFR 21, calcium 8.3, phosphorus 2.8, albumin of 3. Current Medications: On include Epogen, atorvastatin, carvedilol, gabapentin, Keppra, Zoloft, and levothyroxine. Assessment And Plan: 1. End-stage renal disease. We will continue the patient on dialysis Friday, Friday, Friday. I will arrange for dialysis tomorrow. 2. Hypertension, controlled. Continue current medication. 3. Hypokalemia. No need for supplement. The patient is going to be dialyzed on high potassium bath. 4. Anemia of chronic kidney disease. Continue CHRIS. 5. Fall. Follow up with Neurology. Continue PT/OT. time spent exam the patient face to face, placing order , discussing the case with the patient and family, reviewing the data , discussing the case with other count team clerk including hopitalist and other loss control consultant 45 min. BERNABE Voice ID: [id number] Report ID: [id number]
[2020-08-17] MEDS: ATORVASTATIN 20 MG TAB PO SCH (21:24)
[2020-08-18 04:12] LABS: Phosphorus 3.4 mg/dL (2.5-4.9)
[2020-08-18] MEDS: LEVOTHYROXINE SOD 0.075 MG TAB PO SCH (05:27)
--- NOTE | 2020-08-18 06:13 | P.PN ---
Subjective Date of Service: 08/18/20 Primary Care Provider: Mak Chief Complaint: intractable nausea and vomitting Subjective: No new changes Physical Examination - Vital Signs Temperature: 97.4 F Blood Pressure: 135/80 Pulse: 101 Respirations: 20 Pulse Ox (%): 97 - Physical Exam General: In no apparent distress HEENT: Atraumatic, Normocephalic Neck: Supple Respiratory: Clear to auscultation bilaterally Cardiovascular: Normal S1 S2, No rubs, No murmurs Gastrointestinal: Soft and benign, Non-distended - Studies Medications List Reviewed: Yes Assessment And Plan - Plan 1. End-stage renal disease. HD today per Friday, Friday, Friday sked. 2. Hypertension, controlled. Continue current BP medication regimen. 3. Renal osteodystrophy. Monitor Ca & Phos. 4. Anemia of chronic kidney disease. Continue CHRIS. 5. Depression. On sertraline 50 mg po daily. Inc dose by 50 mg q wkly up to 200 mg/d if needed. 6. Debility. S/p BLE amputation. Continue PT/OT. Physician Review: Patient Assessed, Agree with Above Assessment and Plan
[2020-08-18] MEDS: carvediloL 3.125 MG TAB PO SCH ×2 (07:49→20:36)
[2020-08-18] MEDS: GABAPENTIN 300 MG CAP PO SCH (07:49)
[2020-08-18] MEDS: levETIRAcetam 500 MG TAB PO SCH (07:49)
[2020-08-18] MEDS: SERTRALINE HCL 50 MG TAB PO SCH (07:49)
[2020-08-18] MEDS: EPOETIN 4,000 UNIT/ML VIAL IV SCH (13:04)
--- NOTE | 2020-08-18 13:21 | P.PN ---
Subjective Date of Service: 08/18/20 Primary Care Provider: Mak Chief Complaint: intractable nausea and vomitting Subjective: No new changes Discussed with Patients daughter. Maurizio Freeman. the patient is falling at home. Will not be safe at home. Discussed with Melissa from case management. We are all in agreement he will not be safe at home. Discussed this with the patient who also agrees. Review of Systems 10-point ROS is otherwise unremarkable General: Weakness, Malaise Physical Examination - Vital Signs Temperature: 98 F Blood Pressure: 124/75 Pulse: 85 Respirations: 18 Pulse Ox (%): 98 - Physical Exam General: Alert, In no apparent distress HEENT: Atraumatic, PERRLA, Other (left subconjunctival hematoma), EOMI Neck: Supple, JVD not distended Respiratory: Clear to auscultation bilaterally, Normal air movement Cardiovascular: Regular rate/rhythm, Normal S1 S2 Gastrointestinal: Normal bowel sounds, No tenderness Musculoskeletal: No tenderness Integumentary: No rashes Neurological: Normal speech, Normal tone, Normal affect Lymphatics: No axilla or inguinal lymphadenopathy - Studies Medications List Reviewed: Yes Assessment & Plan - Problems (Diagnosis) (1) End of life care Current Visit: Yes Status: Chronic Plan: Patient has been getting weaker. Started on zoloft by Dr. Graff. He is getting less tolerant of dialysis. Where he normally slept an hour after dialysis. He is worsening now and sleeps the rest of the day. Have discussed with Mr Srinivasan yesterday and the daughter today. She is willing to discus with hospice her options. Of course the ultimate decision is with the patient. Howeve he may already be on the path to acceptance. (2) At risk for fall due to comorbid condition Current Visit: Yes Status: Chronic Plan: spoken with son in law. Patient need assistance for transfers. Family wondering about his ability to live at home. He lives with an elderly . son in law state he feels the patient is dying. As he keeps getting weaker. Will order pt and drug abuse social worker. 08/18 discussed with family at length. Patient is now days much more tired with dialysis Sleps the entire day. Which means we cant do PT that day safely. He is still grieving his feet. Which is another comorbidity. He is definitely not safe home with just his elderly . All of the rest of his family members have to work. Will try to get him permanent skilled/long-term placement. Will also have hospice talk to the family. He may be on the transition to end of life care (3) Subconjunctival hemorrhage of left eye Current Visit: Yes Status: Acute Plan: as above will repeat the Head CT. Will need to protect the eye with antibiotic ointment and coverage. He most likely will not get an in patient opthalmalogy consult. Will see if we can get him a quick outpatient consult. 08/16 Dr. Ordoñez out of network. Will try refering to Dr. Antonio as an outpatient. His eye continues to improve. (4) Chronic CHF (congestive heart failure) Current Visit: No Status: Chronic Plan: stable. He is in dialysis today. Will continue the carvedilol. We can try lasix if there is any signs of fluid overload. Qualifiers: Heart failure type: systolic (5) ESRD (end stage renal disease) on dialysis Current Visit: No Status: Chronic Plan: With Dr. Kimball's group. He normally gets his dialysis on MWF. He is getting an extra round today. Will get a 1lt removed (6) Hypothyroid Current Visit: No Status: Chronic Plan: recheck thyroid level. Will continue his routine levothyroxine Qualifiers: Hypothyroidism type: acquired Qualified Code(s): E03.9 - Hypothyroidism, unspecified (7) Severe protein-energy malnutrition Current Visit: Yes Status: Acute Plan: Patient is very weak. Sleepy after dialysis. Increased fall risk Physician Review: Patient Assessed, Agree with Above Assessment and Plan Critical Care: No Time Spent Managing Pts Care (In Minutes): 35
[2020-08-18] MEDS: ATORVASTATIN 20 MG TAB PO SCH (20:38)
[2020-08-19 04:39] LABS: Albumin 2.9 g/dL (3.4-5.0); Phosphorus 2.7 mg/dL (2.5-4.9)
[2020-08-19] MEDS: LEVOTHYROXINE SOD 0.075 MG TAB PO SCH (05:34)
[2020-08-19] MEDS: SERTRALINE HCL 50 MG TAB PO SCH (08:27)
[2020-08-19] MEDS: levETIRAcetam 500 MG TAB PO SCH (08:28)
[2020-08-19] MEDS: GABAPENTIN 300 MG CAP PO SCH (08:28)
[2020-08-19] MEDS: carvediloL 3.125 MG TAB PO SCH ×2 (08:28→21:00)
--- NOTE | 2020-08-19 09:45 | P.PN ---
Subjective Date of Service: 08/19/20 Primary Care Provider: Mak Chief Complaint: intractable nausea and vomitting Subjective: No new changes Physical Examination - Vital Signs Temperature: 97.4 F Blood Pressure: 131/74 Pulse: 86 Respirations: 18 Pulse Ox (%): 100 - Physical Exam General: In no apparent distress HEENT: Atraumatic, Normocephalic Neck: JVD not distended Respiratory: Clear to auscultation bilaterally Cardiovascular: No rubs, No murmurs Gastrointestinal: Soft and benign, Non-distended - Studies Medications List Reviewed: Yes Assessment And Plan - Plan 1. End-stage renal disease. HD today per Friday, Friday, Friday sked. Received HD yesterday. No acute indication for HD today. 2. Hypertension, controlled. Continue current BP medication regimen. 3. Renal osteodystrophy. Monitor Ca & Phos. Phos below goal, avoid phos binder. 4. Anemia of chronic kidney disease. Continue CHRIS. 5. Depression. On sertraline 50 mg po daily. Inc dose by 50 mg q wkly up to 200 mg/d if needed. 6. Debility. S/p BLE amputation. Continue PT/OT. Physician Review: Patient Assessed, Agree with Above Assessment and Plan
--- NOTE | 2020-08-19 10:48 | P.PN ---
Subjective Date of Service: 08/19/20 Primary Care Provider: Mak Chief Complaint: intractable nausea and vomitting Patient has no complaints Review of Systems 10-point ROS is otherwise unremarkable Physical Examination - Vital Signs Temperature: 97.4 F Blood Pressure: 131/74 Pulse: 86 Respirations: 18 Pulse Ox (%): 100 - Physical Exam General: Alert, In no apparent distress HEENT: Atraumatic, PERRLA, EOMI Neck: Supple, JVD not distended Respiratory: Clear to auscultation bilaterally, Normal air movement Cardiovascular: Regular rate/rhythm, Normal S1 S2 Gastrointestinal: Normal bowel sounds, No tenderness Musculoskeletal: No tenderness Integumentary: No rashes Neurological: Normal speech, Normal tone, Normal affect Lymphatics: No axilla or inguinal lymphadenopathy - Studies Medications List Reviewed: Yes Assessment & Plan - Problems (Diagnosis) (1) End of life care Current Visit: Yes Status: Chronic Plan: Patient has been getting weaker. Started on zoloft by Dr. Graff. He is getting less tolerant of dialysis. Where he normally slept an hour after dialysis. He is worsening now and sleeps the rest of the day. Have discussed with Mr Srinivasan yesterday and the daughter today. She is willing to discus with hospice her options. Of course the ultimate decision is with the patient. Howeve he may already be on the path to acceptance. (2) At risk for fall due to comorbid condition Current Visit: Yes Status: Chronic Plan: spoken with son in law. Patient need assistance for transfers. Family wondering about his ability to live at home. He lives with an elderly . son in law state he feels the patient is dying. As he keeps getting weaker. Will order pt and social service worker. 08/18 discussed with family at length. Patient is now days much more tired with dialysis Sleps the entire day. Which means we cant do PT that day safely. He is still grieving his feet. Which is another comorbidity. He is definitely not safe home with just his elderly . All of the rest of his family members have to work. Will try to get him permanent skilled/fdc placement. Will also have hospice talk to the family. He may be on the transition to end of life care (3) Subconjunctival hemorrhage of left eye Current Visit: Yes Status: Acute Plan: as above will repeat the Head CT. Will need to protect the eye with antibiotic ointment and coverage. He most likely will not get an in patient opthalmalogy consult. Will see if we can get him a quick outpatient consult. 08/16 Dr. Ordoñez out of network. Will try refering to Dr. Antonio as an outpatient. His eye continues to improve. (4) Chronic CHF (congestive heart failure) Current Visit: No Status: Chronic Plan: stable. He is in dialysis today. Will continue the carvedilol. We can try lasix if there is any signs of fluid overload. Qualifiers: Heart failure type: systolic (5) ESRD (end stage renal disease) on dialysis Current Visit: No Status: Chronic Plan: With Dr. Kimball's group. He normally gets his dialysis on MWF. He is getting an extra round today. Will get a 1lt removed (6) Hypothyroid Current Visit: No Status: Chronic Plan: recheck thyroid level. Will continue his routine levothyroxine Qualifiers: Hypothyroidism type: acquired Qualified Code(s): E03.9 - Hypothyroidism, unspecified (7) Severe protein-energy malnutrition Current Visit: Yes Status: Acute Plan: Patient is very weak. Sleepy after dialysis. Increased fall risk Discharge Plan: Halfway - Code Status/Comfort Care Code Status Assessed: No Physician Review: Patient Assessed, Agree with Above Assessment and Plan Critical Care: No Time Spent Managing Pts Care (In Minutes): 25
[2020-08-19] MEDS: ATORVASTATIN 20 MG TAB PO SCH (21:00)
[2020-08-20] MEDS: LEVOTHYROXINE SOD 0.075 MG TAB PO SCH (05:18)
[2020-08-20 06:04] LABS: Albumin 2.9 g/dL (3.4-5.0); Phosphorus 3.2 mg/dL (2.5-4.9); Potassium 4.2 mmol/L (3.5-5.1)
--- NOTE | 2020-08-20 06:11 | P.PN ---
Subjective Date of Service: 08/21/20 Primary Care Provider: Mak Chief Complaint: intractable nausea and vomitting Subjective: No new changes Physical Examination - Vital Signs Temperature: 96.6 F Blood Pressure: 128/73 Pulse: 82 Respirations: 18 Pulse Ox (%): 100 - Physical Exam General: Other (Frail-looking) HEENT: Other (+periorbital hematoma) Neck: Supple Respiratory: Normal air movement Cardiovascular: No rubs, No murmurs Musculoskeletal: Other (+bilateral LE amputation) - Studies Medications List Reviewed: Yes Assessment And Plan - Plan 1. End-stage renal disease. HD today per Friday, Friday, Friday sked. No acute indication for HD today. next HD tomorrow. 2. Hypertension, controlled. Continue current BP medication regimen. 3. Renal osteodystrophy. Monitor Ca & Phos. Phos below goal, avoid phos binder. 4. Anemia of chronic kidney disease. Continue CHRIS. 5. Depression. On sertraline 50 mg po daily. Inc dose by 50 mg q wkly, up to 200 mg/d, until mood is much better. 6. Debility. S/p BLE amputation. Continue PT/OT. Physician Review: Patient Assessed, Agree with Above Assessment and Plan
[2020-08-20] MEDS: levETIRAcetam 500 MG TAB PO SCH (07:32)
[2020-08-20] MEDS: SERTRALINE HCL 50 MG TAB PO SCH (07:32)
[2020-08-20] MEDS: GABAPENTIN 300 MG CAP PO SCH (07:32)
[2020-08-20] MEDS: carvediloL 3.125 MG TAB PO SCH (07:32)
--- NOTE | 2020-08-20 15:32 | P.DS ---
Admission Date: 08/14/20 Discharge Date: 08/20/20 Primary Care Provider: Mak Disposition: HOSPICE-HOME Discharge Condition: FAIR Reason for Admission: intractable nausea and vomitting - Problems (1) End of life care Current Visit: Yes Status: Chronic (2) At risk for fall due to comorbid condition Current Visit: Yes Status: Chronic (3) Subconjunctival hemorrhage of left eye Current Visit: Yes Status: Acute (4) Chronic CHF (congestive heart failure) Current Visit: No Status: Chronic Qualifiers: Heart failure type: systolic (5) ESRD (end stage renal disease) on dialysis Current Visit: No Status: Chronic (6) Hypothyroid Current Visit: No Status: Chronic Qualifiers: Hypothyroidism type: acquired Qualified Code(s): E03.9 - Hypothyroidism, unspecified (7) Severe protein-energy malnutrition Current Visit: Yes Status: Acute Brief History of Present Illness: 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 He has a history of ESRD, aortic valve replacement. The patient had a contusion on of his eye on Friday. he has been having some nausea and vomitting for the past day. Eventually came back to the ER. He did have a ct scan of his head on Friday which was negative. He denies any falls. He does have swelling and redness of the eye. Which seems very profound however is not occluding the iris or pupil. He is currently recieving dialysis. Hospital Course: patient admitted for nausea and vomiting. Which resolved quickly. We did not find any specific reasons. While he was here the patient showed he was very weak. Especially the day of his dialyisis. He could not stay awake for his PT session those day. It is very important for him to do dialysis as the patient just had bilateral bka's. Instead he has been declining steadily. Tried inpt rehab, which was too expensive for the family. He has decided on hospice. Have wished him and his daughter the best. Thank you for allowing me to take part in his care. Vital Signs/Physical Exam: Temp Pulse Resp BP Pulse Ox 97.8 F 80 18 116/66 100 08/20/20 12:00 08/20/20 12:00 08/20/20 12:00 08/20/20 12:00 08/20/20 12:00 General: Alert, In no apparent distress HEENT: Atraumatic, PERRLA, EOMI Neck: Supple, JVD not distended Respiratory: Clear to auscultation bilaterally, Normal air movement Cardiovascular: Regular rate/rhythm, Normal S1 S2 Gastrointestinal: Normal bowel sounds, No tenderness Musculoskeletal: No tenderness Integumentary: No rashes Neurological: Normal speech, Normal tone, Normal affect Lymphatics: No axilla or inguinal lymphadenopathy Laboratory Data at Discharge: WBC 7.80 K/uL (4.3-10.9) D 08/14/20 01:30 Hgb 9.7 g/dL (13.6-17.9) L 08/14/20 01:30 Hct 30.4 % (39.6-49.0) L 08/14/20 01:30 Plt Count 80 K/uL (152-406) L 08/14/20 01:30 PT 14.9 SECONDS (9.5-12.5) H 08/16/20 05:27 INR 1.29 08/16/20 05:27 Sodium 138 mmol/L (136-145) 08/20/20 05:10 Potassium 4.2 mmol/L (3.5-5.1) 08/20/20 05:10 BUN 26 mg/dL (7-18) H 08/20/20 05:10 Creatinine 3.90 mg/dL (0.55-1.3) H D 08/20/20 05:10 Glucose 101 mg/dL (74-106) 08/20/20 05:10 Phosphorus 3.2 mg/dL (2.5-4.9) 08/20/20 05:10 Total Bilirubin 1.1 mg/dL (0.2-1.0) H 08/14/20 01:30 AST 19 U/L (15-37) 08/14/20 01:30 ALT 25 U/L (12-78) 08/14/20 01:30 Alkaline Phosphatase 113 U/L (45-117) 08/14/20 01:30 Lipase 155 U/L (73-393) 08/14/20 01:30 Home Medications: Clopidogrel Bisulfate [Clopidogrel] 75 mg PO DAILY 07/03/20 Levothyroxine Sodium [Levothyroxine] 150 mcg PO [id number] 07/03/20 RX: Aspirin [Aspirin EC 81 MG] 81 mg PO DAILY 07/03/20 RX: Carvedilol [Coreg] 0.5 tab PO BID 07/03/20 RX: Furosemide 40 mg PO DAILY 07/03/20 RX: Gabapentin 300 mg PO DAILY 07/03/20 RX: Lisinopril [Zestril] 2.5 mg PO DAILY 07/03/20 Atorvastatin Calcium [Lipitor] 20 mg PO BEDTIME 08/14/20 Metformin HCl [Glucophage] 500 mg PO BEDTIME 08/14/20 RX: Diclofenac Sodium 75 mg PO TID 08/14/20 Sertraline [Zoloft] 50 mg PO DAILY 08/14/20 Activity: Fall precautions Followup: Franklin Corado MD [Primary Care Provider] - Physician Review: Patient Assessed, Agree with Above Assessment and Plan Time spent managing pt's care (in minutes): 40
[2020-08-20 16:04] VITALS: O2SAT 99
[2020-08-21 00:08] VITALS: BP 128/73; TEMP 96.6
== END 2020-08-20 17:47 | disposition hospice, home (50) | DRG 391 ==
LOC: ER 21:45 → ERHOLD 08-14 05:02 → 4TH 08-14 06:22
PROVIDERS: ADMIT Internal Medicine; ATTEND Internal Medicine
PROC: 5A1D70Z Performance of Urinary Filtration, Intermittent, Less than 6 Hours Per Day (ICD-10-PCS; principal; 2020-08-14)
DX: R11.2 Nausea with vomiting, unspecified (principal); N18.6 End stage renal disease; E43 Unspecified severe protein-calorie malnutrition; I50.22 Chronic systolic (congestive) heart failure; I13.2 Hypertensive heart and chronic kidney disease with heart failure and with stage 5 chronic kidney disease, or end stage renal disease; R18.8 Other ascites; H11.32 Conjunctival hemorrhage, left eye; E11.22 Type 2 diabetes mellitus with diabetic chronic kidney disease; E11.51 Type 2 diabetes mellitus with diabetic peripheral angiopathy without gangrene; F32.9 Major depressive disorder, single episode, unspecified; I25.10 Atherosclerotic heart disease of native coronary artery without angina pectoris; E03.9 Hypothyroidism, unspecified; D69.6 Thrombocytopenia, unspecified; N25.0 Renal osteodystrophy; E87.6 Hypokalemia; E78.5 Hyperlipidemia, unspecified; D63.1 Anemia in chronic kidney disease; F41.9 Anxiety disorder, unspecified; R53.81 Other malaise; R53.1 Weakness; Z79.890 Hormone replacement therapy; Z79.899 Other long term (current) drug therapy; Z95.2 Presence of prosthetic heart valve; Z79.02 Long term (current) use of antithrombotics/antiplatelets; Z95.5 Presence of coronary angioplasty implant and graft; Z79.84 Long term (current) use of oral hypoglycemic drugs; Z79.82 Long term (current) use of aspirin; Z99.2 Dependence on renal dialysis; Z88.8 Allergy status to other drugs, medicaments and biological substances; Z89.512 Acquired absence of left leg below knee; Z89.511 Acquired absence of right leg below knee; Z87.891 Personal history of nicotine dependence; Z91.81 History of falling; Z51.5 Encounter for palliative care; Z68.27 Body mass index [BMI] 27.0-27.9, adult; Z20.822 Contact with and (suspected) exposure to COVID-19
CPT/HCPCS: 36415; 70450; 74176; 80048; 80069; 80076; 82140; 82947; 83690; 84484; 85025; 85610; 86704; 86706; 86803; 86850; 86900; 86901; 87340; 90935; 93005; 95819; 97110; 97161; 99285; C9113; J2405; J2550; J7799; Q5105; U0003